=== PATIENT | male | born 1955 | race Caucasian/White ===

== ENCOUNTER 2016-06-10 13:04 | Inpatient (IN) | payer OTHER ==
[~2016-06-10] VITALS: Ht 185.4 cm; Wt 116.0 kg
[~2016-06-10 13:04] MED LIST: ACET1TAB40 PO; AMO500 PO; AMOX1TAB10 PO; IBUP-1542 PO; MECL-77 PO
[2016-06-10] MEDS ORDERED: ONDANSETRON 4 MG INJ IV STA (13:49)
[2016-06-10] MEDS ORDERED: SOD CHLORIDE 0.9% 500 ML IV STA (13:49)
[2016-06-10 14:23] LABS: BASOPHILS % 0.2 % (0.0-2.0); EOSINOPHILS # 0.1 10^3/ul (0.0-0.5); EOSINOPHILS % 0.9 % (0.0-7.0); HEMATOCRIT 48.1 % (42.0-52.0); HEMOGLOBIN 16.1 g/dl (14.0-18.0); LYMPHOCYTES # 1.2 10^3/ul (0.8-2.9); LYMPHOCYTES % 10.2 % (15.0-51.0); MEAN CORPUSCULAR HEMOGLOBIN 29.8 pg (29.0-33.0); MEAN CORPUSCULAR HGB CONC 33.5 g/dl (32.0-37.0); MEAN PLATELET VOLUME 8.6 fl (7.4-10.4); MONOCYTE # 0.9 10^3/ul (0.3-0.9); MONOCYTES % 7.1 % (0.0-11.0); NEUTROPHIL # 9.8 10^3/ul (1.6-7.5); NEUTROPHILS % 81.6 % (39.0-77.0); PLATELET COUNT 296 10^3/UL (140-440); RED BLOOD COUNT 5.41 10^6/ul (4.70-6.10); RED CELL DISTRIBUTION WIDTH 14.1 % (11.5-14.5); UNCORRECTED WBC 12.1 10^3/ul (4.8-10.8); WHITE BLOOD COUNT 12.1 10^3/ul (4.8-10.8)
[2016-06-10 14:24] LABS: CONDITION 1
[2016-06-10 14:31] LABS: ALBUMIN 3.8 g/dl (3.3-4.9)
[2016-06-10 14:32] LABS: POTASSIUM 4.3 mmol/L (3.5-5.1)
[2016-06-10 14:33] LABS: INR 0.95; PARTIAL THROMBOPLASTIN TIME 29.2 Sec (25.0-35.0); PROTIME 12.7 Sec (12.2-14.2)
[2016-06-10 14:34] LABS: ALBUMIN/GLOBULIN RATIO 0.95; BILIRUBIN,INDIRECT 0.7 mg/dl (0-1.1); BILIRUBIN,TOTAL 0.7 mg/dl (0.2-1.3); CREATININE 0.92 mg/dl (0.61-1.24); TOTAL PROTEIN 7.8 g/dl (6.1-8.1)
[2016-06-10 14:35] LABS: CALCIUM 8.5 mg/dl (8.4-10.2)
--- NOTE | 2016-06-10 14:47 | RADRPT ---
PROCEDURE: CT Abdomen and Pelvis without contrast. CLINICAL INDICATION: Abdominal and pelvic pain. Abdominal distension. TECHNIQUE: CT scan of the abdomen and pelvis without contrast was performed. Coronal and sagittal reformatted images were obtained from the axial source images. Images were reviewed on a high-resolu [employer] PACS workstation. Total exam DLP is 1423.34 mGy-cm. CTDIvol is 20.99 mGy. One or more of the following dose reduction techniques were used: Automated exposure control, adjustment of the mA and/ or kV according to patient size, use of iterative reconstruction technique. COMPARISON: 04/12/2009. FINDINGS: The lung bases are normal. There is no pleural effusion or pericardial effusion. There is coronary artery calcification. The liver is normal in size and attenuation. There is no focal hepatic lesion. The gallbladder and bile ducts are normal. The spleen is normal in size. There is a benign calcification superiorly in the spleen. Both adrenals are normal with no enlargement or mass. The pancreas is unremarkable with no mass or evidence of pancreatitis. There is no renal mass or hydronephrosis. There is a nonobstructing 0.6 cm calculus in the lower ri ght kidney and a nonobstructing 0.8 cm calculus in the lower left kidney. The abdominal aorta is not dilated. There is calcification in the aorta consistent with atherosclero sis. There is no retroperitoneal lymphadenopathy or mass. There is no pelvic lymphadenopathy or mass. The bladder and distal ureters are normal. The periappendiceal region is unremarkable with no evidence of appendicitis. The appendix is well se en and appears normal. The stomach is markedly distended with gas and fluid. There is no evidence of gastric outlet obstru ction. The proximal 2/3 of the small bowel is dilated and there are multiple air fluid levels consi stent with small bowel obstruction. The distal third of the small bowel is collapsed. No definite obstructing lesion is seen but there is a transition point in the right lower quadrant. There is a m idline anterior abdominal wall hernia superior to the umbilicus containing only omental fat. There is no herniated bowel. There is no free air. There is a small amount of free fluid in the cul-de-sac. There are degenerative changes of the spine. There is no fracture or lytic lesion. IMPRESSION: 1. Coronary artery calcification. 2. Benign calcification superiorly in the spleen. 3. Nonobstructing small bilateral renal calculi. 4. Atherosclerosis. 5. Normal appendix. 6. Small bowel obstruction with a transition point in the right lower quadrant. No definite obstru cting lesion is visualized. Marked distension of the stomach. Nasogastric tube placement is advise d. 7. Midline anterior abdominal wall hernia superior to the umbilicus containing only omental fat. N o herniated bowel. 8. Small amount of free fluid in the cul-de-sac. 9. Degenerative changes of the spine. Call report: A call report of the findings was made to Dr. Galarza on 06/10/2016 at 1440 hours. RPTAT: QQ .Steve Lr MD, MD Date Time Electronically viewed and signed by .Steve Lr MD, on 06/10/2016 14:46 .R/
--- NOTE | 2016-06-10 15:28 | ERA ---
ER Documentation Chief Complaint Date/Time DATE: 06/10/16 TIME: 15:25 Chief Complaint vomiting since yesterday. right side abdominal pain from hernia. no diarrhe HPI 61-year-old male, very pleasant. Prior history of ventral hernia surgery in 2010 status post mesh placement. He presents complaining of nonbloody nonbilious emesis, diffuse abdominal pain and bloating, lack of bowel movement. He is still passing gas. He denies any fevers or chills, no chest pain or shortness of breath ROS All systems reviewed and are negative except as per history of present illness. Medications Home Meds Discontinued Scripts Acetaminophen with Codeine (Acetaminophen-Cod #3 Tablet) 1 Each Tablet, 1 TAB PO Q6H Y for PAIN, #20 TAB Prov:KENZIE SCRUGGS MD 03/04/16 Amoxicillin/Potassium Clav (Amox-Clav 875-125 mg Tablet) 875-125 mg Tab, 1 TAB PO BID for 7 Days, #14 TAB Prov:KENZIE SCRUGGS MD 03/04/16 Ibuprofen* (Motrin*) 600 Mg Tab, 600 MG PO Q6, #20 TAB Prov:DEVEN CABRERA MD 03/01/16 Amoxicillin* (Amoxicillin*) 500 Mg Cap, 500 MG PO TID for 10 Days, CAP Prov:DEVEN CABRERA MD 03/01/16 Meclizine Hcl* (Meclizine Hcl*) 25 Mg Tablet, 25 MG PO Q8H Y for VERTIGO, #30 TAB Prov:NAVYA CHANDLER DO 01/05/15 Allergies Allergies: Coded Allergies: No Known Allergy (Verified , 06/10/16) PMhx/Soc History of Surgery: Yes (SKIN CANCER REMOVAL, HERNIA REPAIR ) Anesthesia Reaction: No Hx Neurological Disorder: No Hx Respiratory Disorders: No Hx Cardiac Disorders: No Hx Psychiatric Problems: No Hx Miscellaneous Medical Probl: Yes (POST SURGICAL SKIN CA REMOVAL) Hx Alcohol Use: No Hx Substance Use: Yes Hx Tobacco Use: No Smoking Status: Never smoker FmHx Family History: No diabetes Physical Exam Vitals Vital Signs Date Time Temp Pulse Resp B/P Pulse Ox O2 Delivery O2 Flow Rate FiO2 06/10/16 13:24 96.8 127 21 127/79 98 Physical Exam General: Well developed, well nourished, no acute distress Head: Normocephalic, atraumatic. Eyes: Pupils equally reactive, EOM intact ENT: Moist mucous membranes Neck: Supple, no lymphadenopathy Respiratory: Lungs clear bilaterally, no distress Cardiovascular: RRR, no murmurs, rubs, or gallops Abdominal: Ventral hernia, protuberant, high-pitched bowel sounds : Deferred MSK: No edema, no unilateral swelling, 5/5 strength Neurologic: Alert and oriented, moving all extremities, normal speech, no focal weakness, no cerebellar signs Skin: No rash Psych: Normal mood Result Diagram: 06/10/16 1415 06/10/16 1415 Results 24 hrs Laboratory Tests Test 06/10/16 14:15 Activated Partial Thromboplast Time 29.2Sec Alanine Aminotransferase (ALT/SGPT) 28IU/L Albumin 3.8g/dl Albumin/Globulin Ratio 0.95 Alkaline Phosphatase 85IU/L Anion Gap 15 Aspartate Amino Transf (AST/SGOT) 22IU/L Basophils # 0.010^3/ul Basophils % 0.2% Blood Urea Nitrogen 11mg/dl Calcium Level 8.5mg/dl Carbon Dioxide Level 29mmol/L Chloride Level 101mmol/L Creatinine 0.92mg/dl Direct Bilirubin 0.00mg/dl Eosinophils # 0.110^3/ul Eosinophils % 0.9% Globulin 4.00g/dl Glucose Level 114mg/dl Hematocrit 48.1% Hemoglobin 16.1g/dl INR International Normalized Ratio 0.95 Indirect Bilirubin 0.7mg/dl Lipase 18U/L Lymphocytes # 1.210^3/ul Lymphocytes % 10.2% Mean Corpuscular Hemoglobin 29.8pg Mean Corpuscular Hemoglobin Concent 33.5g/dl Mean Corpuscular Volume 89.0fl Mean Platelet Volume 8.6fl Monocytes # 0.910^3/ul Monocytes % 7.1% Neutrophils # 9.810^3/ul Neutrophils % 81.6% Nucleated Red Blood Cells # 0.010^3/ul Nucleated Red Blood Cells % 0.0/100WBC Platelet Count 40350^3/UL Potassium Level 4.3mmol/L Prothrombin Time 12.7Sec Prothrombin Time Ratio 1.0 Red Blood Count 5.4110^6/ul Red Cell Distribution Width 14.1% Sodium Level 141mmol/L Total Bilirubin 0.7mg/dl Total Protein 7.8g/dl White Blood Count 12.110^3/ul Current Medications Medications (Trade) Dose Ordered Sig/Ramesh Route PRN Reason Start Time Stop Time Status Last Admin Dose Admin Sodium Chloride (NS) 500 ml @ 500 mls/hr Q1H STAT IV 06/10/16 13:49 06/10/16 14:48 DC 06/10/16 14:58 Ondansetron HCl (Zofran Inj) 4 mg ONCE STAT IV 06/10/16 13:49 06/10/16 13:50 DC 06/10/16 14:58 Lorazepam (Ativan) 1 mg ONCE ONCE IV 06/10/16 15:30 06/10/16 15:31 Lidocaine (Xylocaine (Viscous)) 15 ml ONCE ONCE PO 06/10/16 15:30 06/10/16 15:31 Ondansetron HCl (Zofran Inj) 4 mg BRIDGE ORDER PRN IV NAUSEA AND/OR VOMITING 06/10/16 15:30 06/11/16 15:29 Acetaminophen (Tylenol Tab) 650 mg ER BRIDGE PRN PO MILD PAIN/FEVER 06/10/16 15:30 06/11/16 15:29 Procedures/MDM EKG, MONITORS, & DIAGNOSTIC IMAGING: CT abdomen and pelvis IMPRESSION: 1. Coronary artery calcification. 2. Benign calcification superiorly in the spleen. 3. Nonobstructing small bilateral renal calculi. 4. Atherosclerosis. 5. Normal appendix. 6. Small bowel obstruction with a transition point in the right lower quadrant. No definite obstructing lesion is visualized. Marked distension of the stomach. Nasogastric tube placement is advised. 7. Midline anterior abdominal wall hernia superior to the umbilicus containing only omental fat. No herniated bowel. 8. Small amount of free fluid in the cul-de-sac. 9. Degenerative changes of the spine. Call report: A call report of the findings was made to Dr. Galarza on 06/10/2016 at 1440 hours. RPTAT: QQ LAB INTERPRETATION: No significant leukocytosis. MEDICAL DECISION MAKING: The patient presents with classic signs and symptoms consistent with likely bowel obstruction. The patient will benefit from laboratory testing, fluids and CT imaging of the abdomen and pelvis. ER COURSE: CT confirms bowel obstruction with transition point. An NG tube will be placed. The patient is hemodynamically stable, no indication for antibiotics. General surgery consultation would be appropriate. The patient is stable for medical surgical floor. I kept the patient and/or family informed of laboratory and diagnostic imaging results throughout the emergency room course. DISPOSITION PLAN: Medical surgical admission for bowel obstruction CONSULTATION: Accepting care team and consultations: I discussed the current laboratory data, diagnostic imaging and emergency care provided. Admitting team: Dr. Mai Admitting team indication: Insurance directed Consulting services: General surgeon Dr. Ying was notified Departure Diagnosis: Primary Impression: Small bowel obstruction Additional Impression: Leukocytosis Qualified Code: D72.829 - Leukocytosis, unspecified type Condition: Stable GINGER GALARZA MD Jun 10, 2016 15:28
[2016-06-10] MEDS ORDERED: LIDOCAINE 2% VISC 15 ML CUP PO ONE (15:30)
[2016-06-10] MEDS ORDERED: LORAZEPAM 2 MG INJ IV ONE (15:30)
[2016-06-10] MEDS ORDERED: ACETAMINOPHEN 325 MG TAB PO PRN (15:30)
[2016-06-10] MEDS ORDERED: ONDANSETRON 4 MG INJ IV PRN ×2 (15:30→17:00)
[2016-06-10] MEDS ORDERED: NACL 0.9% 3 ML SYG IV SCH (17:00)
[2016-06-10] MEDS ORDERED: ACETAMINOPHEN 650 MG SUPP PR PRN (17:00)
[2016-06-10] MEDS ORDERED: morphine 2 MG INJ IV PRN (17:00)
[2016-06-10] MEDS ORDERED: BISACODYL 10 MG SUPP PR PRN (17:00)
[2016-06-10 17:16] VITALS: TEMP 98.6
[2016-06-10 17:54] VITALS: Ht 185.4 cm; Wt 116.0 kg
[2016-06-10 18:25] VITALS: BP 136/83; PULSE 87; RESP 18
[2016-06-10] MEDS: D5W-0.45 NACL + KCL 20 MEQ 1,000 ML IV SCH (18:36)
--- NOTE | 2016-06-10 18:51 | HP ---
DATE OF ADMISSION: 06/10/2016 TYPE OF CONSULTATION: Surgical. REASON FOR CONSULTATION: Small-bowel obstruction. HISTORY OF PRESENT ILLNESS: The patient is a 61-year-old gentleman who presents with a 1 day histor y of abdominal pain, nausea and vomiting. His last bowel movement was yesterday. He continues to b e able to pass gas. In the emergency room, evaluation consisted of a CT scan which showed a small-b owel obstruction with a transition point noted in the right lower quadrant. No definitive obstructi ng lesion was visualized. He was also noted to have atherosclerosis, normal appendix, and splenic c alcification. An NG tube was placed and the patient is admitted with surgical consultation requeste d. He has had no fevers or chills. The patient has had a repair of a large ventral incisional hernia in [facility] in 2009. H e states he has done reasonably well until this hospitalization. OUTPATIENT MEDICATIONS: Essentially none. ALLERGIES: NONE. PAST MEDICAL HISTORY: HEAD, EARS, EYES, NOSE, THROAT: Unremarkable. PULMONARY: No history of shortness of breath or pneumonia or asthma. CARDIAC: No history of chest pain, OK or arrhythmia. ABDOMEN: As in the HPI. MISCELLANEOUS: The patient had a basal cell carcinoma removed of the skin. PHYSICAL EXAMINATION: GENERAL: The patient is a morbidly obese 61-year-old gentleman who is awake and alert, in no acute distress. HEAD, EARS, EYES, NOSE, THROAT: Unremarkable. There is a nasogastric tube in place draining enteri c content. LUNGS: Clear. HEART: Regular rhythm. ABDOMEN: Distended with a recurrent ventral incisional hernia. It is soft and reducible. There ar e no abdominal masses. EXTREMITIES: Unremarkable. LABORATORY DATA: The patient's hematocrit is 48.1 with a white count of 12,100 and a left shift wit h 81.[address] findings as noted above. IMPRESSION: Possible small-bowel obstruction. PLAN: The patient will be continued with IV fluids and NG decompression. Tomorrow morning a small- bowel follow through has been ordered. Plan and further recommendations will be based on the patien t's further workup and clinical course. I will follow with you. Dictated By: ROSALINE CHO/NORM Conf#: [id number] DID#: [id number]
[2016-06-10 21:09] VITALS: BP 148/82; RESP 18
--- NOTE | 2016-06-11 00:57 | RADRPT ---
PROCEDURE: XR Chest. CLINICAL INDICATION: Nasogastric tube placement. TECHNIQUE: Portable AP view of the chest was obtained. COMPARISON: 01/05/2015 FINDINGS: The cardiomediastinal silhouette is within upper normal limits. The lungs are clear. There is no e vidence for pleural effusion, pneumothorax or pulmonary vascular congestion. The distal tip of the n asogastric tube is below the diaphragm and inferior margin of the exposure within the region of the mid to distal stomach The osseous structures are intact with no evidence for acute abnormality. Calc ification of the aortic arch is again seen. RPTAT:HJJR IMPRESSION: 1. Distal tip of the nasogastric tube is within the mid to distal stomach. 2. No evidence of acute intrathoracic pathology. 3. Aortic atherosclerosis is present. Physician Sharon Date Time Electronically viewed and signed by Physician Sharon on 06/11/2016 00:57 /
[2016-06-11] MEDS: D5W-0.45 NACL + KCL 20 MEQ 1,000 ML IV SCH ×3 (04:48→21:07)
[2016-06-11 05:37] LABS: ALBUMIN 3.1 g/dl (3.3-4.9)
[2016-06-11 05:38] LABS: POTASSIUM 4.5 mmol/L (3.5-5.1)
[2016-06-11 05:40] LABS: CREATININE 0.85 mg/dl (0.61-1.24)
[2016-06-11 05:41] LABS: CALCIUM 8.5 mg/dl (8.4-10.2); PHOSPHORUS 2.3 mg/dl (2.5-4.9); TOTAL PROTEIN 6.2 g/dl (6.1-8.1)
[2016-06-11 05:42] LABS: MAGNESIUM 1.5 mg/dl (1.7-2.5)
[2016-06-11 05:57] LABS: T3 UPTAKE 38.2 % (23.5-40.5)
[2016-06-11 06:11] LABS: THYROID STIMULATING HORMONE 1.03 MIU/L (0.465-4.680)
[2016-06-11 07:10] VITALS: BP 126/64; RESP 18
--- NOTE | 2016-06-11 07:15 | PN ---
DATE: 06/11/2016 The patient is symptomatically improved. His abdominal pain seems to have resolved. He has passed some gas and has had a small bowel movement. His abdominal examination is benign, and he has a soft reducible ventral incisional hernia. PLAN: The patient is scheduled for a small-bowel follow-through today. Further recommendations dedra l be forthcoming following the results of this study. Dictated By: ROSALINE CHO/NORM Conf#: [id number] DID#: [id number]
--- NOTE | 2016-06-11 13:16 | HP ---
Date/Time of Note Date/Time of Note DATE: 06/10/16 TIME: 17:02 Assessment/Plan VTE Prophylaxis VTE Prophylaxis Intervention: SCD's Assessment/Plan Chief Complaint/Hosp Course Assessment and plan 1. Small bowel obstruction per general surgeon obtained. Will place patient on IV hydration. Keep npo for now. Analgesics as needed. Await surgeon input. 2. Leukocytosis likely secondary to #1. Afebrile at present. Monitor now. 3. DVT prophylaxis: SCDs 4. Obesity. Weight reduction to be advised Discussed plan of care with Dr. Macedo Admission process time: 35 minutes Problems: HPI/ROS Admit Date/Time Admit Date/Time Hx of Present Illness This is a 61-year-old male with only reported history of ventral hernia repair in 2009 status post mesh who came to [facility] due to reports of abdominal pain. According to the patient is abdominal pain started 1 day prior to admission during lunch when he had reportedly eaten a cheeseburger. Are to have sharp abdominal pain that was diffuse and had associated nausea and vomiting nonbilious nonbloody. He denies any chest pain or shortness of breath associated with it. No other specific symptoms he reported. He did not also having difficulty with tolerating oral intake. He subsequently went to [facility] for further evaluation. Upon examination he did have further abdominal imaging done that did show him to have small obstruction with transition point in right lower quadrant with no definite obstructing lesion visualized. There is also seen marked distention of the stomach. There is also seen nonobstructing small bilateral renal calculi as well as atherosclerosis and coronary artery calcification. On labs he did have leukocytosis with white count of 12.1 likely reactive to his SBO. Basic metabolic panel was otherwise unremarkable. Currently the patient remains resting. He does report a little alleviation of abdominal pain status post NG tube placement. We will evaluate him for the aforementioned issues. ROS 12 point review of systems obtained and entirely negative except as mentioned in history of present illness PMH/Family/Social Past Medical History Medical/surgical history 1. Ventral hernia repair status post mesh in 1999 Family History Significant Family History: no pertinent family hx Social History Alcohol Use: none Smoking Status: Never smoker Drug Use: none Exam/Review of Systems Vital Signs Vitals Vital Signs Date Time Temp Pulse Resp B/P Pulse Ox O2 Delivery O2 Flow Rate FiO2 06/10/16 13:24 96.8 127 21 127/79 98 Exam Exam General: Slightly lethargic. No apparent distress Eyes: [pupils equal round, Anicteric sclera] Neck: Supple nontender, no JVD Cardiac: [S1, S2 auscultated, regular rhythm and rate] Pulmonary: Minimally diminished at lung bases GI: Protuberant minimally tender upon palpation bowel sounds active. NG tube in place Extremities: Edema seen bilateral lower extremities +2-+3 Skin: Scaly and ulceration on bilateral lower extremities with some erythema noted Neurologic: [Alert to person place and time and situation] Labs Result Diagram: 06/10/16 1415 06/10/16 1415 Medications Medications Current Medications Potassium Chloride/Dextrose/ Sod Cl (D5-1/2ns + KCl 20 Meq) 1,000 ml @ 100 mls/ hr Q10H IV ; Start 06/10/16 at 16:33 Ondansetron HCl (Zofran Inj) 4 mg Q6H PRN IV NAUSEA AND/OR VOMITING; Start at 17:00 Acetaminophen (Tylenol Supp) 650 mg Q6H PRN [place] PAIN LEVEL 1-3 OR FEVER; Start 06/10/16 at 17:00 Morphine Sulfate (morphine) 2 mg Q4H PRN IV SEVERE PAIN LEVEL 7-10; Start 06/10 at 17:00 Bisacodyl (Dulcolax Supp) 10 mg DAILY PRN [place] CONSTIPATION; Start 06/10/16 at 17 :00 JHONATAN BENDER Jun 10, 2016 17:12
--- NOTE | 2016-06-11 13:19 | PN ---
Date/Time of Note Date/Time of Note DATE: 06/11/16 TIME: 13:17 Assessment/Plan VTE Prophylaxis VTE Prophylaxis Intervention: SCD's Lines/Catheters IV [facility] Peripheral IV Urinary Cath still in place: No Assessment/Plan Chief Complaint/Hosp Course Assessment and plan 1. Small bowel obstruction per general surgeon obtained. Continue IV hydration. Plan for small bowel follow-through. Follow-up with surgeon recommendations per 2. Leukocytosis likely secondary to #1. Afebrile at present. Monitor now. 3. DVT prophylaxis: SCDs 4. Obesity. Weight reduction to be advised Disposition and plan: Plan for small bowel follow-through.. Advance diet per surgeon recommendation. Discharged in medically stable and cleared by [employer] consultant Discussed plan of care with Dr. Macedo Problems: Subjective 24 Hr Interval Summary Free Text/Dictation Less reported abdominal pain at this time Exam/Review of Systems Vital Signs Vitals Vital Signs Date Time Temp Pulse Resp B/P Pulse Ox O2 Delivery O2 Flow Rate FiO2 06/11/16 07:10 98.6 18 126/64 98 06/10/16 21:09 80 06/10/16 18:25 Room Air Intake and Output 06/10/16 06/10/16 06/11/16 14:59 22:59 06:59 Intake Total 1000 ml Output Total 1100 ml Balance -100 ml Exam General: [No acute signs or symptoms of distress] Eyes: [pupils equal round, Anicteric sclera] Neck: Supple nontender, no JVD Cardiac: [S1, S2 auscultated, regular rhythm and rate] Pulmonary: [No coarse rhonchi or breathing auscultated] GI: Nasogastric tube in place. Less tender at this time. Bowel sounds active Extremities: Edema noted bilateral lower extremities +2-+3. Skin: Noted with scaly skin bilateral lower extremities Neurologic: [Alert to person place and time and situation] Results Result Diagram: 06/10/16 1415 06/11/16 0440 Results 24 hrs Laboratory Tests Test 06/10/16 14:15 06/11/16 04:40 Activated Partial Thromboplast Time 29.2 Alanine Aminotransferase (ALT/SGPT) 28 23 Albumin 3.8 3.1 L Albumin/Globulin Ratio 0.95 1.00 Alkaline Phosphatase 85 70 Anion Gap 15 15 Aspartate Amino Transf (AST/SGOT) 22 18 Basophils # 0.0 Basophils % 0.2 Blood Urea Nitrogen 11 11 Calcium Level 8.5 8.5 Carbon Dioxide Level 29 25 Chloride Level 101 104 Creatinine 0.92 0.85 Direct Bilirubin 0.00 0.00 Eosinophils # 0.1 Eosinophils % 0.9 Globulin 4.00 H 3.10 Glucose Level 114 98 Hematocrit 48.1 Hemoglobin 16.1 INR International Normalized Ratio 0.95 Indirect Bilirubin 0.7 1.0 Lipase 18 L Lymphocytes # 1.2 Lymphocytes % 10.2 L Mean Corpuscular Hemoglobin 29.8 Mean Corpuscular Hemoglobin Concent 33.5 Mean Corpuscular Volume 89.0 Mean Platelet Volume 8.6 Monocytes # 0.9 Monocytes % 7.1 Neutrophils # 9.8 H Neutrophils % 81.6 H Nucleated Red Blood Cells # 0.0 Nucleated Red Blood Cells % 0.0 Platelet Count 296 # Potassium Level 4.3 4.5 Prothrombin Time 12.7 Prothrombin Time Ratio 1.0 Red Blood Count 5.41 Red Cell Distribution Width 14.1 Sodium Level 141 139 Total Bilirubin 0.7 1.0 Total Protein 7.8 6.2 # White Blood Count 12.1 #H Cholesterol Level 120 Cholesterol/HDL Ratio 4.0 Free Thyroxine Index 2.22 HDL Cholesterol 30 Hemoglobin A1c 5.5 LDL Cholesterol, Calculated 75 Magnesium Level 1.5 L Phosphorus Level 2.3 L Thyroid Stimulating Hormone (TSH) 1.030 Thyroxine (T4) 5.8 Triglycerides Level 75 Triiodothyronine (T3) Uptake 38.2 Medications Medications Current Medications Potassium Chloride/Dextrose/ Sod Cl (D5-1/2ns + KCl 20 Meq) 1,000 ml @ 100 mls/ hr Q10H IV Last administered on 06/11/16t 04:48; Admin Dose 100 MLS/HR; Start 06/10/16 at 16:33 Ondansetron HCl (Zofran Inj) 4 mg Q6H PRN IV NAUSEA AND/OR VOMITING; Start at 17:00 Acetaminophen (Tylenol Supp) 650 mg Q6H PRN [place] PAIN LEVEL 1-3 OR FEVER; Start 06/10/16 at 17:00 Morphine Sulfate (morphine) 2 mg Q4H PRN IV SEVERE PAIN LEVEL 7-10; Start 06/10 at 17:00 Bisacodyl (Dulcolax Supp) 10 mg DAILY PRN [place] CONSTIPATION; Start 06/10/16 at 17 :00 JHONATAN BENDER Jun 11, 2016 13:19
[2016-06-11 14:07] LABS: ALBUMIN 3.3 g/dl (3.3-4.9); POTASSIUM 4.2 mmol/L (3.5-5.1)
[2016-06-11 14:10] LABS: ALBUMIN/GLOBULIN RATIO 0.97; BILIRUBIN,INDIRECT 1.1 mg/dl (0-1.1); BILIRUBIN,TOTAL 1.1 mg/dl (0.2-1.3); CALCIUM 8.4 mg/dl (8.4-10.2); CREATININE 0.93 mg/dl (0.61-1.24); TOTAL PROTEIN 6.7 g/dl (6.1-8.1)
[2016-06-11 14:11] LABS: CHOL/HDL RATIO 4.2 RATIO
--- NOTE | 2016-06-11 15:04 | RADRPT ---
Echocardiogram Report Patient Name: COURTNEY GREENE Gender: Male Date: 1955 Study Date: 11-Jun-2016 [employer]ined [employer] Quality Inspector: Milli Romero [facility] Location: [facility] Ref. Physician: JHONATAN BENDER Quality: Technically Difficult Study Procedures: Transthoracic echocardiogram with complete 2D, M-Mode, and doppler examination. Indications: Dyspnea. 2D/M Mode Doppler Measurement Value Normal Ranges Measurement Value Normal Ranges LVIDd 2D 3.8 3.5 - 5.6 cm MV E Peak Yakov 0.5 m/sec LVIDs 2D 2.4 2.1 - 4.1 cm MV A Peak Yakov 0.7 m/sec LVPWd 2D 1.3 0.6 - 1.1 cm MV E/A 0.7 IVSd 2D 1.3 0.6 - 1.1 cm MV Decel Time 167 msec AoR Diam 2D 3.8 2.0 - 3.7 cm MV Decel [place] 3 EDV 2D 62.6 cm3 MV E/A 0.7 ESV 2D 13.7 cm3 LA Dimen 2D 3.6 2.3 - 4.0 cm Findings Left Ventricle: Normal left ventricular cavity size. Mild concentric left ventricular hypertrophy. Mild left ventricular systolic dysfunction. Ejection fraction is visually estimated at 45 %. Tissue Doppler/Mitral Doppler indices are consistent with impaired relaxation (Stage I diastolic dysfunction). Resting Segmental Wall Motion Analysis: Poor endocardial visualization but there appears to be hypokinesis of the distal septum and apex. Right Ventricle: Normal right ventricular size. Normal right ventricular systolic function. Left Atrium: The left atrium is normal in size. Right Atrium: The right atrium is normal in size. Mitral Valve: Normal appearance and function of the mitral valve with trace physiologic regurgitation. Aortic Valve: Normal appearance of the aortic valve. No significant aortic stenosis or insufficiency. Tricuspid Valve: Normal appearance of the tricuspid valve. Unable to obtain RVSP due to minimal presence of tricuspid regurgitation. Pulmonic Valve: Normal pulmonic valve appearance. Pericardium: Normal pericardium with no significant pericardial effusion. Aorta: Normal aortic root. IVC: Normal size and normal respiratory collapse consistent with normal right atrial pressure. Conclusions 1.Technically difficult study due to poor endocardial visualization. 2.Normal left ventricular cavity size. Mild concentric left ventricular hypertrophy. Mild left ventricular systolic dysfunction. Ejection fraction is visually estimated at 45 %. Stage I diastolic dysfunction. Poor endocardial visualization but there appears to be hypokinesis of the distal septum and apex. 3.No significant valvular stenosis or regurgitation seen. 4.Unable to obtain RVSP due to minimal presence of tricuspid regurgitation. RA pressure is 3 mmHg. Electronically Signed By: José Miguel Restrepo 11-Jun-2016 15:03:16 0800 Patient Name: COURTNEY GREENE Study Date: 11-Jun-2016 [id number]
--- NOTE | 2016-06-11 18:09 | RADRPT ---
PROCEDURE: Small bowel follow-through. CLINICAL INDICATION: Abdomen pain. TECHNIQUE: Water-soluble contrast was administered orally and several spot and overhead radiograph s of the abdomen were obtained. COMPARISON: CT scan of the abdomen and pelvis dated 06/10/2016. FINDINGS: On the preliminary radiograph, a nasogastric tube is present with the tip in the stomach. There is no small bowel displacement or mass. The small bowel folds are normal. There is mildly dilated small bowel throughout the abdomen. Contrast is present in the colon at 4 h ours 40 minutes. IMPRESSION: 1. Dilated small bowel with no evidence of mechanical obstruction. RPTAT: QQ .Steve Lr MD, MD Date Time Electronically viewed and signed by .Steve Lr MD, MD on 06/11/2016 18:09 .R/
[2016-06-11 19:48] VITALS: BP 122/56; RESP 18
[2016-06-11] MEDS ORDERED: MAGNESIUM SULFATE 2 GM/50 ML 50 ML IVPB ONE (20:30)
[2016-06-11] MEDS ORDERED: POTASSIUM PHOSPHATE 20 MEQ in SOD CHLORIDE 0.9% 250 ML IVPB ONE (20:30)
[2016-06-12 06:13] LABS: BASOPHILS % 0.3 % (0.0-2.0); EOSINOPHILS # 0.2 10^3/ul (0.0-0.5); EOSINOPHILS % 2.5 % (0.0-7.0); HEMATOCRIT 42.8 % (42.0-52.0); HEMOGLOBIN 14.4 g/dl (14.0-18.0); LYMPHOCYTES # 1.8 10^3/ul (0.8-2.9); LYMPHOCYTES % 19.9 % (15.0-51.0); MEAN CORPUSCULAR HEMOGLOBIN 29.9 pg (29.0-33.0); MEAN CORPUSCULAR HGB CONC 33.7 g/dl (32.0-37.0); MEAN CORPUSCULAR VOLUME 88.8 fl (82.0-101.0); MEAN PLATELET VOLUME 8.5 fl (7.4-10.4); MONOCYTE # 0.8 10^3/ul (0.3-0.9); MONOCYTES % 9.3 % (0.0-11.0); NEUTROPHIL # 6.2 10^3/ul (1.6-7.5); PLATELET COUNT 236 10^3/UL (140-440); RED BLOOD COUNT 4.82 10^6/ul (4.70-6.10); RED CELL DISTRIBUTION WIDTH 14.6 % (11.5-14.5); UNCORRECTED WBC 9.1 10^3/ul (4.8-10.8); WHITE BLOOD COUNT 9.1 10^3/ul (4.8-10.8)
[2016-06-12 06:26] LABS: CONDITION 1; LH ANALYZER COMMENTS 1
[2016-06-12 06:33] LABS: MAGNESIUM 2.2 mg/dl (1.7-2.5); PHOSPHORUS 2.5 mg/dl (2.5-4.9)
--- NOTE | 2016-06-12 08:25 | RADRPT ---
PROCEDURE: XR Abdomen. CLINICAL INDICATION: Abdominal pain TECHNIQUE: Two views of the abdomen are available for review. COMPARISON: Small bowel study dated 06/11/2016 FINDINGS: Several residual minimally dilated loops of small bowel in the left hemiabdomen are identified at th is time, improved when compared to the prior study. There is no evidence of significant small bowel obstruction at this time. Residual contrast is seen throughout the colon. All of the contrast seen w ithin the small bowel on the recent prior study has now passed through completely into the colon. Th ere are no abnormal calcifications overlying the urinary tracts. The osseous structures are remarkab le for degenerative spondylosis of the spine. IMPRESSION: 1. Unremarkable abdomen x-ray series. 2. No small bowel dilatation or small bowel obstruction is identified. 3. Residual contrast seen throughout the colon at this time. RPTAT: PP .Magdaleno Sevilla MD, MD Date Time Electronically viewed and signed by .Magdaleno Sevilla MD, on 06/12/2016 08:24 .B/
[2016-06-12] MEDS: D5W-0.45 NACL + KCL 20 MEQ 1,000 ML IV SCH ×2 (08:33→13:42)
[2016-06-12 08:41] VITALS: BP 130/68; RESP 18
[2016-06-12] MEDS ORDERED: DOCU-144 PO (12:03)
[2016-06-12] MEDS ORDERED: ONDA-43 PO (12:03)
--- NOTE | 2016-06-12 12:43 | PN ---
DATE: 06/12/2016 OBJECTIVE: The patient's small bowel follow through yesterday showed no obstruction. The NG tube h as been removed and the patient is tolerating liquids and has had several loose bowel movements. He feels markedly symptomatically improved. PHYSICAL EXAMINATION: ABDOMEN: Benign. PLAN: Full liquids. The patient's diet can be advanced and he can be discharged if tolerates with outpatient followup with his surgeon. Dictated By: ROSALINE CHO/NORM Conf#: [id number] DID#: [id number]
--- NOTE | 2016-06-12 14:50 | PN ---
Date/Time of Note Date/Time of Note DATE: 06/12/16 TIME: 14:48 Assessment/Plan VTE Prophylaxis VTE Prophylaxis Intervention: SCD's Lines/Catheters IV [facility]ter [facility]from [facility]): Peripheral IV Urinary Cath still in place: No Assessment/Plan Chief Complaint/Hosp Course Assessment and plan 1. Small bowel obstruction per general surgeon obtained. Continue IV hydration. Status post small bowel follow-through with no obstruction seen. Diet advanced to liquid. Continue with surgeon recommendations. 2. Leukocytosis likely secondary to #1. Afebrile at present. Improved at present 3. DVT prophylaxis: SCDs 4. Obesity. Weight reduction to be advised 5.CHF with systolic and diastolic dysfunction. Patient started on beta maria e. Continue with blood pressure control. Patient follow-up with his outpatient physician Disposition and plan: Started on diuretic. Also on beta maria e. Advance diet as tolerated. Discharge when able to tolerate regular diet Discussed plan of care with Dr. Macedo Problems: Subjective 24 Hr Interval Summary Free Text/Dictation Less abdominal pain. NG tube removed. Exam/Review of Systems Vital Signs Vitals Vital Signs Date Time Temp Pulse Resp B/P Pulse Ox O2 Delivery O2 Flow Rate FiO2 06/12/16 08:41 98.3 71 18 130/68 93 06/10/16 18:25 Room Air Intake and Output 06/11/16 06/11/16 06/12/16 14:59 22:59 06:59 Intake Total 1000 ml 784 ml Output Total 1050 ml 50 ml Balance -50 ml 734 ml Exam General: No acute signs or symptoms of distress Eyes: pupils equal round, Anicteric sclera Neck: Supple nontender, no JVD Cardiac: S1, S2 auscultated, regular rhythm and rate Pulmonary: No coarse rhonchi or breathing auscultated GI: Nasogastric tube in place. Less tender at this time. Bowel sounds active Extremities: Edema noted bilateral lower extremities +2-+3. Skin: Noted with scaly skin bilateral lower extremities Neurologic: Alert to person place and time and situation Results Result Diagram: 06/12/16 0534 06/11/16 1345 Results 24 hrs Laboratory Tests Test 06/12/16 05:34 Basophils # 0.0 Basophils % 0.3 Blood Morphology Comment Eosinophils # 0.2 Eosinophils % 2.5 Hematocrit 42.8 Hemoglobin 14.4 Lymphocytes # 1.8 Lymphocytes % 19.9 Magnesium Level 2.2 Mean Corpuscular Hemoglobin 29.9 Mean Corpuscular Hemoglobin Concent 33.7 Mean Corpuscular Volume 88.8 Mean Platelet Volume 8.5 Monocytes # 0.8 Monocytes % 9.3 Neutrophils # 6.2 Neutrophils % 68.0 Nucleated Red Blood Cells # 0.0 Nucleated Red Blood Cells % 0.0 Phosphorus Level 2.5 Platelet Count 236 # Red Blood Count 4.82 Red Cell Distribution Width 14.6 H White Blood Count 9.1 # Medications Medications Current Medications Potassium Chloride/Dextrose/ Sod Cl (D5-1/2ns + KCl 20 Meq) 1,000 ml @ 100 mls/ hr Q10H IV Last administered on 06/12/16t 13:42; Admin Dose 100 MLS/HR; Start 06/10/16 at 16:33 Ondansetron HCl (Zofran Inj) 4 mg Q6H PRN IV NAUSEA AND/OR VOMITING; Start at 17:00 Acetaminophen (Tylenol Supp) 650 mg Q6H PRN NH PAIN LEVEL 1-3 OR FEVER; Start 06/10/16 at 17:00 Morphine Sulfate (morphine) 2 mg Q4H PRN IV SEVERE PAIN LEVEL 7-10; Start 06/10 at 17:00 Bisacodyl (Dulcolax Supp) 10 mg DAILY PRN NH CONSTIPATION; Start 06/10/16 at 17 :00 JHONATAN BENDER Jun 12, 2016 14:50
[2016-06-12 15:19] VITALS: BP 138/72; PULSE 72
[2016-06-12] MEDS: FUROSEMIDE 20 MG TAB PO SCH (15:22)
[2016-06-12] MEDS: METOPROLOL 25 MG TAB PO SCH ×2 (15:23→21:49)
[2016-06-12 21:11] VITALS: BP 137/73; RESP 19
[2016-06-13] MEDS: D5W-0.45 NACL + KCL 20 MEQ 1,000 ML IV SCH ×2 (04:33→14:33)
[2016-06-13 08:23] LABS: BASOPHILS % 0.3 % (0.0-2.0); EOSINOPHILS # 0.2 10^3/ul (0.0-0.5); HEMATOCRIT 44.6 % (42.0-52.0); LYMPHOCYTES # 1.6 10^3/ul (0.8-2.9); LYMPHOCYTES % 20.3 % (15.0-51.0); MEAN CORPUSCULAR HEMOGLOBIN 29.8 pg (29.0-33.0); MEAN CORPUSCULAR HGB CONC 33.6 g/dl (32.0-37.0); MEAN CORPUSCULAR VOLUME 88.6 fl (82.0-101.0); MEAN PLATELET VOLUME 8.4 fl (7.4-10.4); MONOCYTE # 0.9 10^3/ul (0.3-0.9); MONOCYTES % 11.3 % (0.0-11.0); NEUTROPHILS % 65.1 % (39.0-77.0); PLATELET COUNT 264 10^3/UL (140-440); RED BLOOD COUNT 5.03 10^6/ul (4.70-6.10); RED CELL DISTRIBUTION WIDTH 13.6 % (11.5-14.5); UNCORRECTED WBC 7.7 10^3/ul (4.8-10.8); WHITE BLOOD COUNT 7.7 10^3/ul (4.8-10.8)
[2016-06-13 08:26] LABS: CONDITION 1
[2016-06-13] MEDS: METOPROLOL 25 MG TAB PO SCH ×2 (10:16→21:15)
[2016-06-13] MEDS: FUROSEMIDE 20 MG TAB PO SCH (10:17)
--- NOTE | 2016-06-13 11:28 | PN ---
DATE: 06/13/2016 SUBJECTIVE: The patient is tolerating full liquids. He has resumed bowel function. OBJECTIVE: His abdominal examination is benign. The ventral incisional hernia remains soft and red ucible. PLAN: The patient can start a regular diet. If tolerates, he is cleared for discharge home today. Dictated By: ROSALINE CHO/NORM Conf#: [id number] DID#: [id number]
[2016-06-13] MEDS ORDERED: LAS20 PO (17:09)
[2016-06-13] MEDS ORDERED: METO-448 PO (17:09)
--- NOTE | 2016-06-13 17:21 | PDOCDIS ---
Discharge Instructions DIAGNOSIS Discharge Diagnosis: 1. small bowel obstruction 2. chf diastolic dysfunction CONDITION Patient Condition: Stable HOME CARE INSTRUCTIONS: Special Diet: clear liquids FOLLOW UP/APPOINTMENTS Appointments 1. Follow up with your primary care provider in one week JHONATAN BENDER Jun 13, 2016 17:21
[2016-06-13] MEDS ORDERED: LISI-523 PO (17:23)
[2016-06-13 21:17] VITALS: BP 136/72; RESP 20
[2016-06-14] MEDS: D5W-0.45 NACL + KCL 20 MEQ 1,000 ML IV SCH (00:33)
[2016-06-14 07:37] VITALS: BP 134/68; RESP 21
[2016-06-14 07:37] LABS: BASOPHIL # 0.1 10^3/ul (0.0-0.1); BASOPHILS % 0.6 % (0.0-2.0); EOSINOPHILS # 0.4 10^3/ul (0.0-0.5); EOSINOPHILS % 5.1 % (0.0-7.0); HEMATOCRIT 45.9 % (42.0-52.0); HEMOGLOBIN 15.5 g/dl (14.0-18.0); LYMPHOCYTES # 1.9 10^3/ul (0.8-2.9); LYMPHOCYTES % 22.8 % (15.0-51.0); MEAN CORPUSCULAR HEMOGLOBIN 30.2 pg (29.0-33.0); MEAN CORPUSCULAR HGB CONC 33.8 g/dl (32.0-37.0); MEAN CORPUSCULAR VOLUME 89.4 fl (82.0-101.0); MEAN PLATELET VOLUME 8.4 fl (7.4-10.4); MONOCYTES % 12.1 % (0.0-11.0); NEUTROPHILS % 59.4 % (39.0-77.0); PLATELET COUNT 248 10^3/UL (140-440); RED BLOOD COUNT 5.13 10^6/ul (4.70-6.10); UNCORRECTED WBC 8.4 10^3/ul (4.8-10.8); WHITE BLOOD COUNT 8.4 10^3/ul (4.8-10.8)
[2016-06-14 07:41] LABS: CONDITION 1
[2016-06-14] MEDS: FUROSEMIDE 20 MG TAB PO SCH (10:00)
[2016-06-14] MEDS: METOPROLOL 25 MG TAB PO SCH (10:00)
--- NOTE | 2016-06-14 13:18 | PN ---
DATE: 06/14/2016 The patient's discharge was held up until this morning because of logistical reasons. His symptoms have completely resolved. PLAN: The patient will follow up with Dr. Frank regarding future repair of his ventral incisional hernia. The patient is discharged and will be followed as an outpatient. Dictated By: ROSALINE CHO/NORM Conf#: [id number] DID#: [id number]
--- NOTE | 2016-06-14 18:50 | PN ---
Date/Time of Note Date/Time of Note LATE ENTRY DATE: 06/13/16 Assessment/Plan VTE Prophylaxis VTE Prophylaxis Intervention: SCD's Lines/Catheters IV [facility] (from [facility] Saline Lock Urinary Cath still in place: No Assessment/Plan Chief Complaint/Hosp Course Assessment and plan 1. Small bowel obstruction. General surgeon following Continue IV hydration. Status post small bowel follow-through with no obstruction seen. Advance diet as tolerated . Continue with surgeon recommendations. 2. Leukocytosis likely secondary to #1. Afebrile at present. Improved at present 3. DVT prophylaxis: SCDs 4. Obesity. Weight reduction to be advised 5.CHF with systolic and diastolic dysfunction. Patient started on beta maria e. Continue with blood pressure control. Patient follow-up with his outpatient physician Disposition and plan: Started on diuretic. Also on beta maria e. d/c planning. d /c when patient can tolerate regular diet Discussed plan of care with Dr. Macedo Problems: Subjective 24 Hr Interval Summary Free Text/Dictation no s/s/ of distress Exam/Review of Systems Vital Signs Vitals Vital Signs Date Time Temp Pulse Resp B/P Pulse Ox O2 Delivery O2 Flow Rate FiO2 06/14/16 07:37 98.7 65 21 134/68 92 06/10/16 18:25 Room Air Intake and Output 06/13/16 06/13/16 06/14/16 15:00 23:00 07:00 Intake Total 1600 ml 480 ml Balance 1600 ml 480 ml Exam General: No acute signs or symptoms of distress Eyes: pupils equal round, Anicteric sclera Neck: Supple nontender, no JVD Cardiac: S1, S2 auscultated, regular rhythm and rate Pulmonary: No coarse rhonchi or breathing auscultated GI: Nasogastric tube in place. Less tender at this time. Bowel sounds active Extremities: Edema noted bilateral lower extremities +2-+3. Skin: Noted with scaly skin bilateral lower extremities Neurologic: Alert to person place and time and situation Results Result Diagram: 06/14/16 0657 06/11/16 1345 Results 24 hrs Laboratory Tests Test 06/14/16 06:57 Basophils # 0.1 Basophils % 0.6 Eosinophils # 0.4 Eosinophils % 5.1 Hematocrit 45.9 Hemoglobin 15.5 Lymphocytes # 1.9 Lymphocytes % 22.8 Mean Corpuscular Hemoglobin 30.2 Mean Corpuscular Hemoglobin Concent 33.8 Mean Corpuscular Volume 89.4 Mean Platelet Volume 8.4 Monocytes # 1.0 H Monocytes % 12.1 H Neutrophils # 5.0 Neutrophils % 59.4 Nucleated Red Blood Cells # 0.0 Nucleated Red Blood Cells % 0.0 Platelet Count 248 Red Blood Count 5.13 Red Cell Distribution Width 14.0 White Blood Count 8.4 JHONATAN BENDER Jun 14, 2016 18:50
== END 2016-06-14 10:30 | disposition home or self-care (01) | DRG 389 ==
LOC: E/R 13:04 → PP2 15:18 → OBG 06-12 17:17
PROVIDERS: ADMIT Internal Medicine; ATTEND Internal Medicine
DX: K56.60 Unspecified intestinal obstruction (principal); I50.30 Unspecified diastolic (congestive) heart failure; E66.9 Obesity, unspecified; K43.2 Incisional hernia without obstruction or gangrene; D72.829 Elevated white blood cell count, unspecified; Z68.33 Body mass index [BMI] 33.0-33.9, adult
CPT/HCPCS: 36415; 71010; 74000; 74176; 74250; 80053; 80061; 80307; 83036; 83690; 83735; 84100; 84436; 84443; 84479; 85025; 85610; 85730; 93306; 96374; 96375; J2060; J2405; J3475; J3480; J7040; J7050

== ENCOUNTER 2016-06-16 10:43 | Inpatient (IN) | payer OTHER ==
[~2016-06-16] VITALS: Ht 185.4 cm; Wt 109.1 kg
[2016-06-16] VITALS (25 sets, daily range): BP systolic 79–139; BP diastolic 54–82; PULSE 90–122; RESP 16–27; TEMP 98.7–101.6
[~2016-06-16 10:43] MED LIST changes: -ACET1TAB40 PO; +AMIODARONE 150 MG INJ ONE; +AMIODARONE 900 MG INJ ONE; -AMO500 PO; -AMOX1TAB10 PO; +ASPIRIN 81 MG TAB ONE; +DEXTROSE 5% WATER 500 ML BAG ONE; +DOCU-144 PO; +HEPARIN 5,000 UNIT/0.5 ML SYG ONE; -IBUP-1542 PO; +LAS20 PO; +LISI-523 PO; -MECL-77 PO; +METO-448 PO; +ONDA-43 PO
[2016-06-16 11:16] LABS: BASOPHILS % 0.4 % (0.0-2.0); EOSINOPHILS # 0.4 10^3/ul (0.0-0.5); EOSINOPHILS % 3.6 % (0.0-7.0); HEMATOCRIT 45.8 % (42.0-52.0); HEMOGLOBIN 15.5 g/dl (14.0-18.0); LYMPHOCYTES # 2.2 10^3/ul (0.8-2.9); LYMPHOCYTES % 21.7 % (15.0-51.0); MEAN CORPUSCULAR HEMOGLOBIN 29.8 pg (29.0-33.0); MEAN CORPUSCULAR HGB CONC 33.9 g/dl (32.0-37.0); MEAN CORPUSCULAR VOLUME 87.9 fl (82.0-101.0); MEAN PLATELET VOLUME 8.3 fl (7.4-10.4); MONOCYTE # 1.1 10^3/ul (0.3-0.9); MONOCYTES % 10.6 % (0.0-11.0); NEUTROPHIL # 6.3 10^3/ul (1.6-7.5); NEUTROPHILS % 63.7 % (39.0-77.0); PLATELET COUNT 292 10^3/UL (140-440); RED BLOOD COUNT 5.22 10^6/ul (4.70-6.10); RED CELL DISTRIBUTION WIDTH 13.9 % (11.5-14.5); UNCORRECTED WBC 9.9 10^3/ul (4.8-10.8); WHITE BLOOD COUNT 9.9 10^3/ul (4.8-10.8)
[2016-06-16 11:20] LABS: CONDITION 1
--- NOTE | 2016-06-16 11:21 | RADRPT ---
PROCEDURE: XR Chest AP portable CLINICAL INDICATION: Chest pain TECHNIQUE: An AP portable radiograph of the chest was submitted. COMPARISON: 06/11/2016 FINDINGS: Support Hardware: None Cardiovascular: The cardiovascular silhouette appears unremarkable. Lung Jones: The lung jones appear clear with no nodule, alveolar infiltrate, for a interstitial pr ominence evident. Pleural Spaces: No pneumothorax or pleural effusion is identified. Osseous Structures: The osseous structures appear intact. Soft Tissues: The soft tissues appear generous. IMPRESSION: 1. Stable unremarkable portable chest. 2. The NG tube has been removed since the previous study. Physician Nevaeh Date Time Electronically viewed and signed by Physician Nevaeh on 06/16/2016 11:20 RH/
[2016-06-16 11:26] LABS: POTASSIUM 4.4 mmol/L (3.5-5.1)
[2016-06-16 11:28] LABS: CREATININE 1.22 mg/dl (0.61-1.24); INR 0.99; PARTIAL THROMBOPLASTIN TIME 28.3 Sec (25.0-35.0); PROTIME 13.1 Sec (12.2-14.2)
[2016-06-16 11:29] LABS: CALCIUM 8.8 mg/dl (8.4-10.2)
[2016-06-16] MEDS ORDERED: HEPARIN 1000 UNITS/ML 10 ML INJ IV ONE (11:30)
[2016-06-16] MEDS ORDERED: ASPIRIN 81 MG TAB PO ONE (11:30)
[2016-06-16] MEDS ORDERED: LIDOCAINE 1% (MDV) 20 ML INJ ONE (11:32)
[2016-06-16] MEDS ORDERED: MIDAZOLAM 1 MG/ML 2 ML INJ ONE ×3 (11:32→14:51)
[2016-06-16] MEDS ORDERED: FENTAnyl 50 MCG/ML VIAL ONE ×2 (11:32→12:29)
[2016-06-16] MEDS ORDERED: IODIXANOL LOCM 100 ML BTL ONE (11:32)
[2016-06-16] MEDS ORDERED: IODIXANOL LOCM 50 ML BTL ONE (11:32)
[2016-06-16] MEDS ORDERED: HEPARIN 1000 UNITS/ML 10 ML INJ ONE ×9 (11:34→15:46)
[2016-06-16] MEDS ORDERED: VERAPAMIL 5 MG INJ ONE (11:34)
--- NOTE | 2016-06-16 11:34 | ERA ---
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 This patient was a walk-in through triage. Our triage EKG does show STEMI. This patient does state he is got to centralize chest pain and pressure with radiation down both arms. He states he is mild shortness of breath and denies any diaphoresis or nausea associated with this. He states that he was recently discharged from the hospital for a small bowel obstruction ROS All systems reviewed and are negative except as per history of present illness. Medications Home Meds Active Scripts Lisinopril* (Zestril*) 5 Mg Tablet, 5 MG PO DAILY, #30 TAB Prov:JHONATAN BENDER 06/13/16 Metoprolol Tartrate* (Lopressor*) 25 Mg Tab, 12.5 MG PO BID for 30 Days, TAB Prov:JHONATAN BENDER 06/13/16 Furosemide (Lasix) 20 Mg Tab, 20 MG PO DAILY for 30 Days, TAB Prov:JHONATAN BENDER 06/13/16 Docusate Sodium* (Colace*) 100 Mg Capsule, 100 MG PO BID Y for CONSTIPATION, # 30 CAP Prov:JHONATAN BENDER 06/12/16 Ondansetron Hcl* (Zofran*) 4 Mg Tab, 4 MG PO Q4H Y for NAUSEA AND OR VOMITING, # 30 TAB Prov:JHONATAN BENDER 06/12/16 Discontinued Scripts Acetaminophen with Codeine (Acetaminophen-Cod #3 Tablet) 1 Each Tablet, 1 TAB PO Q6H Y for PAIN, #20 TAB Prov:KENZIE SCRUGGS MD 03/04/16 Amoxicillin/Potassium Clav (Amox-Clav 875-125 mg Tablet) 875-125 mg Tab, 1 TAB PO BID for 7 Days, #14 TAB Prov:KENZIE SCRUGGS MD 03/04/16 Ibuprofen* (Motrin*) 600 Mg Tab, 600 MG PO Q6, #20 TAB Prov:DEVEN CABRERA MD 03/01/16 Amoxicillin* (Amoxicillin*) 500 Mg Cap, 500 MG PO TID for 10 Days, CAP Prov:DEVEN CABRERA MD 03/01/16 Meclizine Hcl* (Meclizine Hcl*) 25 Mg Tablet, 25 MG PO Q8H Y for VERTIGO, #30 TAB Prov:GERALDINENAVYA BakerAshlyn HAN 01/05/15 Allergies Allergies: Coded Allergies: No Known Allergy (Verified , 06/16/16) PMhx/Soc History of Surgery: Yes (mesh plaement ) Anesthesia Reaction: No Hx Neurological Disorder: No Hx Respiratory Disorders: No Hx Cardiac Disorders: No Hx Psychiatric Problems: No Hx Miscellaneous Medical Probl: No Hx Alcohol Use: No Hx Substance Use: No Hx Tobacco Use: No Smoking Status: Never smoker Physical Exam Vitals Vital Signs Date Time Temp Pulse Resp B/P Pulse Ox O2 Delivery O2 Flow Rate FiO2 06/16/16 11:06 Nasal Cannula 2 06/16/16 11:03 72 18 155/94 99 06/16/16 10:55 98.4 66 20 167/72 99 Physical Exam INITIAL VITAL SIGNS: Reviewed by me GENERAL: The patient is well developed and appropriate for usual state of health in no apparent distress HEENT: Pupils equal, round, and reactive to light. EOMI. There is no scleral icterus. NECK: C-spine is soft and supple, there is no meningismus. There is no cervical lymphadenopathy. LUNGS: Clear to auscultation bilaterally. There are no rales, wheezes or rhonchi. HEART: Regular rate and rhythm, no murmurs, clicks, rubs or gallops. ABDOMEN: Soft, non-tender, non-distended. There are bowel sounds in all four quadrants. No rebound or guarding. EXTREMITIES: There is no peripheral cyanosis or edema. No focal swelling or erythema. NEUROLOGICAL: The patient moves all four extremities with 5/5 strength. Cranial nerves II - XII are intact. Normal gait. Alert and oriented SKIN: There is no apparent rash or petechiae. HEME/LYMPHATIC: There is no evidence of excessive bruising or lymphedema. PSYCHIATRIC: The patient does not appear anxious or depressed. Result Diagram: 06/16/16 1108 Results 24 hrs Laboratory Tests Test 06/16/16 11:08 Activated Partial Thromboplast Time 28.3Sec Basophils # 0.010^3/ul Basophils % 0.4% Eosinophils # 0.410^3/ul Eosinophils % 3.6% Hematocrit 45.8% Hemoglobin 15.5g/dl INR International Normalized Ratio 0.99 Lymphocytes # 2.210^3/ul Lymphocytes % 21.7% Mean Corpuscular Hemoglobin 29.8pg Mean Corpuscular Hemoglobin Concent 33.9g/dl Mean Corpuscular Volume 87.9fl Mean Platelet Volume 8.3fl Monocytes # 1.110^3/ul Monocytes % 10.6% Neutrophils # 6.310^3/ul Neutrophils % 63.7% Nucleated Red Blood Cells # 0.010^3/ul Nucleated Red Blood Cells % 0.0/100WBC Platelet Count 82942^3/UL Prothrombin Time 13.1Sec Prothrombin Time Ratio 1.0 Red Blood Count 5.2210^6/ul Red Cell Distribution Width 13.9% White Blood Count 9.910^3/ul Current Medications Medications (Trade) Dose Ordered Sig/Ramesh Route PRN Reason Start Time Stop Time Status Last Admin Dose Admin Aspirin (Aspirin) 324 mg ONCE ONCE PO 06/16/16 11:30 06/16/16 11:31 06/16/16 11:11 Heparin Sodium (Porcine) (Heparin (1000 Units/ml)) 4,000 unit ONCE ONCE IV 06/16/16 11:30 06/16/16 11:31 06/16/16 11:11 Procedures/MDM EKG: #1 Rate/Rhythm: Acute ST elevation NH QRS, ST, T-waves: [ST elevation in inferior leads] Impression: Acute inferior ST elevation NH] EKG: #2 Rate/Rhythm: Acute ST elevation NH QRS, ST, T-waves: [ST elevation in inferior leads] Impression: Acute inferior ST elevation NH] Chest X-ray 1V Interpreted by me: Soft Tissue: No acute abnormalities Bones: No acute abnormalities Mediastinum/Cardiac Silhouette/Lungs: [No acute abnormalities] This 61-year-old male presents to the emergency room for evaluation of chest pain and pressure and feeling of indigestion. This patient was a walk-in through triage in his triage EKG did show ST elevation NH. I evaluated this patient at 11 AM. I called a code STEMI at 11:01 AM. I have spoken to Dr. Roberts who agrees to take this patient to the Forging Operator. Forging Operator team is at bedside at 11:03 AM. This patient was taken to laboratory technology teacher after x-rays and EKGs were obtained. This patient will be admitted at this time under the care of her panel physician, Dr. Hadley. He is hemodynamically stable at this time and was given 324 mg of chewable aspirin, and heparin bolus of 4000 units. Critical Care: Excluding all billable procedures Time: 33 minutes Treatments/Evaluations: Close monitoring and treatment of unstable vital signs, cardiorespiratory, and neurologic status, while maintaining tight balance of fluid, respiratory, and cardiac interventions, multiple bedside evaluations, multiple consultations, EKG interpretation, chart review. Departure Diagnosis: Primary Impression: Acute ST elevation myocardial infarction Additional Impression: ST elevation myocardial infarction (STEMI) of inferior wall Condition: Serious MICHAEL MCCOLLUM DO Jun 16, 2016 11:34
[2016-06-16] MEDS ORDERED: NITROGLYCERIN (IC) 100 MCG/ML INJ ONE (11:35)
--- NOTE | 2016-06-16 11:36 | EN ---
Date/Time of Note Date/Time of Note DATE: 06/16/16 TIME: 11:35 ER Progress Note I was called to a MEHUL GOODE in the cardiac Airborne And Air Delivery Specialist. When I entered the room I saw patient that was mildly responsive and was undergoing chest compressions. According to the Airborne And Air Delivery Specialist nurses this patient did go into a pulseless V. tach. He was shocked one time. When I evaluated this patient he was tracking me with his eyes. He began to speak and stated that he was mildly short of breath. I did note PVCs on his rhythm. I did start this patient on 150 mg of amiodarone. At that point our supervisor hardboard , Dr. Aden, into the Airborne And Air Delivery Specialist and they were to proceed with the percutaneous intervention. This patient was hemodynamically stable when I left, no need for intubation. Cardiopulmonary Resuscitation by me: See code documentation for specific details. ACLS and BLS were performed with high quality chest compressions and minimal interruptions. Reversible causes were assessed and treated. MICHAEL MCCOLLUM DO Jun 16, 2016 11:36
[2016-06-16] MEDS ORDERED: LIDOCAINE 100 MG SYRINGE ONE (12:25)
[2016-06-16] MEDS ORDERED: NA BICARBONATE 8.4% 50 ML SYG ONE (12:25)
[2016-06-16] MEDS ORDERED: MIDAZOLAM 5 ML ONE ×3 (12:25→14:53)
[2016-06-16] MEDS ORDERED: POTASSIUM CHLORIDE 40 MEQ INJ ONE (12:26)
[2016-06-16] MEDS ORDERED: PHENYLephrine (100 MCG/ML) 5ML SYG ONE ×2 (12:27→14:21)
[2016-06-16 12:32] LABS: TROPONIN-I 0.05 ng/ml (0.00-0.12)
[2016-06-16] MEDS ORDERED: PAPAVERINE 60 MG INJ ONE (12:40)
[2016-06-16] MEDS ORDERED: VANCOMYCIN 1 GM INJ ONE (12:41)
--- NOTE | 2016-06-16 12:53 | CONS ---
Date/Time of Note Date/Time of Note DATE: 06/16/16 TIME: 12:40 Assessment/Plan Assessment/Plan Chief Complaint/Hosp Course Patient presents two days after discharge for SBO with a STEMI and VF arrest, has 3 vessel coronary disease and known cardiomyopathy, unable to open a vessel acutely, now will undergo emergent CABG. Case discussed with Dr. Back. Problems: Additional Assessment/Plan STEMI ischemic cardiomyopathy ef 45% 3 vessel coronary disease recent SBO treated medically Plan: CABG emergently Medical therapy of coronary disease to follow. Consultation Date/Type/Reason Admit Date/Time 06/16/2016 Date of Consultation: Jun 16, 2016 Type of Consultation: cardiology Reason for Consultation STEMI Referring Provider: MICHAEL MCCOLLUM of Present Illness 61 yo with no prior cardiac history, admitted 06/10- for sbo treated medically , noted to have EF 45% with anterior and apical hypokinesis on echo 06/10/16, discharged on metoprolol and lisinopril that he never filled. Patient says he's felt unwell for 2 weeks, but specifically had chest pain and dyspnea that started an hour and a half before he presented himself to triage. EKG there demonstrated ST elevations of III, AVF and reciprocral depressions in I and AVL. 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 Cath demonstrates severe 99% mid LAD disease with LD 2 flow, LCX 100% occluded proximally, and RCA has a 100% mid occlusion with right to right collaterals with LD I flow, and some faint collaterals directed toward the LCX territory. Attempts were made to cross the RCA and LCX lesions, both unsuccessful, a balloon pump was placed, and patient being referred for CABG emergently. Eyes: no complaints ENT: no complaints Respiratory: shortness of breath Cardiovascular: chest pain Gastrointestinal: no complaints Genitourinary: no complaints Musculoskeletal: no complaints Skin: no complaints Neurologic: no complaints Endocrine: no complaints Psychological: nl mood/affect, no complaints Past Medical History recent SBO treated medically, and known cardiomyopathy based on echo on last admission one week ago. Family History Significant Family History: no pertinent family hx Social History Smoking Status: Never smoker Exam/Review of Systems Vital Signs Vitals Vital Signs Date Time Temp Pulse Resp B/P Pulse Ox O2 Delivery O2 Flow Rate FiO2 06/16/16 11:06 Nasal Cannula 2 06/16/16 11:03 72 18 155/94 99 06/16/16 10:55 98.4 Exam Constitutional: alert, oriented, well developed Psych: nl mood/affect Head: normocephalic Eyes: nl conjunctiva ENMT: nl external ears & nose Neck: No jvd Respiratory: clear to auscultation Cardiovascular: nl pulses, regular rate and rhythm, No murmurs/extra sounds Gastrointestinal: soft Musculoskeletal: nl extremities to inspection Extremities: normal pulses Neurological: nl mental status Results Result Diagram: 06/16/16 1108 06/16/16 1108 Results 24 hrs Laboratory Tests Test 06/16/16 11:08 Activated Partial Thromboplast Time 28.3 Anion Gap 17 H Basophils # 0.0 Basophils % 0.4 Blood Urea Nitrogen 19 Calcium Level 8.8 Carbon Dioxide Level 27 Chloride Level 102 Creatinine 1.22 Eosinophils # 0.4 Eosinophils % 3.6 Glucose Level 103 Hematocrit 45.8 Hemoglobin 15.5 INR International Normalized Ratio 0.99 Lymphocytes # 2.2 Lymphocytes % 21.7 Mean Corpuscular Hemoglobin 29.8 Mean Corpuscular Hemoglobin Concent 33.9 Mean Corpuscular Volume 87.9 Mean Platelet Volume 8.3 Monocytes # 1.1 H Monocytes % 10.6 Neutrophils # 6.3 Neutrophils % 63.7 Nucleated Red Blood Cells # 0.0 Nucleated Red Blood Cells % 0.0 Platelet Count 292 Potassium Level 4.4 Prothrombin Time 13.1 Prothrombin Time Ratio 1.0 Red Blood Count 5.22 Red Cell Distribution Width 13.9 Sodium Level 142 Troponin I 0.050 White Blood Count 9.9 Medications Medications Current Medications Insulin Human Regular 100 unit/ Sodium Chloride 100 ml @ 0 mls/hr Q0M ONCE IVPB ; Start 06/16/16 at 13:00; Stop 06/16/16 at 13:01 Norepinephrine 250 ml @ 0 mls/hr ONCE ONCE IV ; Start 06/16/16 at 13:00; Stop 06/16/16 at 13:01 Epinephrine 4 mg/ Dextrose 250 ml @ 0 mls/hr ONCE ONCE IV ; Start 06/16/16 at 13:00; Stop 06/16/16 at 13:01 Phenylephrine HCl (Cuate-Synephrine) 250 ml @ 0 mls/hr ONCE ONCE IV ; Start 06/16 at 13:00; Stop 06/16/16 at 13:01 Aspirin 600 mg 600 mg ONCE ONCE FL ; Start 06/16/16 at 13:00; Stop 06/16/16 at 13:01 Heparin Sodium (Porcine) 80869 unit/Milrinone Lactate 10 mg/ Sodium Chloride 1, 011 ml @ 0 mls/hr ONCE ONCE SC ; Start 06/16/16 at 13:00; Stop 06/16/16 at 13: 01 Milrinone Lactate/ Sodium Chloride (Primacor/NS) 52 ml @ 0 mls/hr ONCE ONCE IV ; Start 06/16/16 at 13:00; Stop 06/16/16 at 13:01 Procedures Procedures cath and ekg findings discussed in the HPI. BAM BERTRAND Jun 16, 2016 12:50
[2016-06-16] MEDS ORDERED: HEPARIN (10000 UNITS/ML) 10,000 UNIT, MILRINONE LACTATE 10 MG in SOD CHLORIDE 0.9% 1,00... SC ONE (13:00)
[2016-06-16] MEDS ORDERED: MILRINONE LACTATE 2 MG in SOD CHLORIDE 0.9% 50 ML IV ONE (13:00)
[2016-06-16] MEDS ORDERED: NORepinephrine 8MG/250 ML (PMX 250 ML IV ONE (13:00)
[2016-06-16] MEDS ORDERED: PHENYLephrine 20MG IN 250 ML 250 ML IV ONE (13:00)
[2016-06-16] MEDS ORDERED: ASPIRIN 600 MG SUPP PR ONE (13:00)
[2016-06-16] MEDS ORDERED: INSULIN REGULAR, HUMAN 100 UNIT in SOD CHLORIDE 0.9% 99 ML IVPB ONE ×2 (13:00)
--- NOTE | 2016-06-16 13:02 | EN ---
Date/Time of Note Date/Time of Note DATE: 06/16/16 TIME: 12:53 Event Note Cardiology Cardiology Event Note Cardiac Catheterization Report Date of Procedure: June 16, 2016 Pre-Procedure Dx: Inferior STEMI Post-Procedure Dx: Three vessel severe coronary disease, unable to open the mid RCA or proximal LCX Procedures performed: Coronary angiography, intraaortic balloon pump Findings: Left main 20% proxima diseaes LAD 80% proximal lesion, then just after the takeoff of the first diagonal is an aneurysm, and following this a 99% mid lesion with LD 2 flow to the distal LAD LCX small OM branch, and then the vessel appears occluded. Faint right to left collaterals noted on injection of the RCA The right coronary artery is dominant. There is a 100% lesion of the mid RCA with right to right collaterals providing antegrade LD 1 flow. Indications: Patient presented with chest pain and dyspnea starting an hour and a half before presentation, and ST elevations in the inferior leads on ekg. Informed consent obtained. Patient received sedation with versed and fentanyl. Then access obtained in right radial artery after Kyle's test, modified Seldinger technique used, 6F sheath placed. Through the sheath, verapamil and ntg 200 mcg given. Using a J-wire, Neel catheter advanced to the aortic root, engaged the LM, and then a JR4 guide used to engage the RCA. Images taken with injection of contrast. Additional 5000 units of heparin given, and ACT checked. Initially it was decided to intervene on the RCA lesion. Wires would not cross , further images taken, and it was decided that this lesion was likely chronic. Next, a FL3.5 guide placed, and three different wires used to try to cross the proximal LCX, a luge, BMW and army helicopter pilot 50, none were successful. Dr. Back consulted, who agreed to take the patient to the OR emergently. An IABP was placed in the groin -- fluoroscopy identified landmarks and using modified seldinger technique, the rfa was accessed, a 7f sheath placed. Through the sheath the IABP was advanced to the georgette. Discussion: Inferior STEMI in patient with known cardiomyopathy (EF 45%) who did not fill his beta maria e or bernard after discharge. Unable to cross either of two significant occlusions. He will emergently undergo cabg. BAM BERTRAND Jun 16, 2016 13:02
--- NOTE | 2016-06-16 13:17 | CONS ---
DATE OF ADMISSION: 06/16/2016 DATE OF CONSULTATION: 06/16/2016 REQUESTING PHYSICIAN: Teena Roberts MD CONSULTING PHYSICIAN: Tita Back MD REASON FOR CONSULTATION: Evaluate for emergency CABG. HISTORY OF PRESENT ILLNESS: The patient is a 61-year-old male who was admitted with a STEMI. He wa s taken emergently to the laboratory chemist. He coded twice requiring cardioversion and on angiogram he was found to have a 99% proximal LAD stenosis with a totally occluded circumflex artery and a subtotal R CA. Despite multiple attempts to open the circumflex, it was unable to be done. He had an intra-ao rtic balloon pump placed. We were asked to see him regarding emergency CABG. PAST MEDICAL HISTORY: Skin cancer. No history of diabetes. PAST SURGICAL HISTORY: Skin cancer removal. ALLERGIES: NO KNOWN ALLERGIES. CURRENT MEDICATIONS: He is currently on heparin. Unknown what his home medications were. REVIEW OF SYSTEMS: Unobtainable. PHYSICAL EXAMINATION: GENERAL: The patient on the laboratory chemist table. VITAL SIGNS: Show a heart rate in the 110s with a blood pressure 110/60, respiratory rate 16. HEAD: Pupils equal and reactive to light. NECK: Supple, no adenopathy. LUNGS: Clear. CARDIOVASCULAR: Tachycardic. No murmurs. ABDOMEN: Soft, nontender. EXTREMITIES: He has an intra-aortic balloon pump in the right femoral artery and he had cardiac cat heterization via the right radial artery. Extremities cool. NEUROLOGIC: He is awake and alert. LABORATORY DATA: His hematocrit is 45.8, platelet count is 292. Creatinine is 1.22. Troponin was 0.05. ASSESSMENT AND PLAN: This is a 61-year-old male with ST elevation myocardial infarction and severe 3-vessel coronary artery disease status post cardiac arrest x2. I explained to the patient the bene fits, risks and alternatives of surgery. The risks are, but not limited to bleeding, infection, str alejandra, myocardial infarction, renal and respiratory failure and . I will also talk to his tiana vitale to surgery to explained the benefits and risks. Dictated By: TITA BACK MD AA/NTS Conf#: [id number] DID#: [id number] CC: TITA BACK MD;*EndCC*
[2016-06-16] MEDS ORDERED: AMINOCAPROIC ACID 5 GM INJ ONE ×2 (13:42→15:52)
[2016-06-16] MEDS ORDERED: CEFAZOLIN 1 GM INJ ONE ×2 (13:42→15:52)
[2016-06-16] MEDS ORDERED: FUROSEMIDE 20 MG INJ ONE (14:07)
[2016-06-16] MEDS ORDERED: AMIODARONE 150 MG INJ ONE (14:37)
[2016-06-16] MEDS ORDERED: FUROSEMIDE 10 ML ONE (15:15)
[2016-06-16] MEDS ORDERED: PROTAMINE 250 MG INJ ONE (15:52)
[2016-06-16] MEDS ORDERED: PHENYLephrine 10 MG INJ ONE (16:14)
[2016-06-16] MEDS ORDERED: VASOPRESSIN 20 UNITS INJ ONE (16:14)
[2016-06-16] MEDS ORDERED: POTASSIUM CHLORIDE 40 MEQ, CALCIUM CHLORIDE 10% 1 GM in DEXTROSE 5%-0.225% NACL 1,000 ML IV SCH (17:12)
[2016-06-16] MEDS ORDERED: POTASSIUM CHLORIDE 100 ML ONE (17:13)
[2016-06-16] MEDS ORDERED: ALBUMIN HUMAN 5% 250 ML ONE (17:18)
[2016-06-16] MEDS ORDERED: ROCURONIUM 50 MG INJ ONE (17:21)
[2016-06-16] MEDS ORDERED: ETOMIDATE 20 MG INJ ONE (17:21)
[2016-06-16] MEDS ORDERED: LIDOCAINE 2% (SDV) 5 ML INJ ONE (17:21)
[2016-06-16] MEDS ORDERED: OXYCODONE/ACETAMINOPHEN (5/325) TAB PO PRN ×2 (17:30)
[2016-06-16] MEDS ORDERED: EPINEPHrine 4 MG in DEXTROSE 5% 246 ML IV SCH (17:30)
[2016-06-16] MEDS ORDERED: NITROGLYCERIN 50 MG/D5W (PMX) 250 ML IV SCH (17:30)
[2016-06-16] MEDS ORDERED: ONDANSETRON 4 MG INJ IV PRN (17:30)
[2016-06-16] MEDS ORDERED: HYDROmorphONE 1 MG/ML SYG IV PRN (17:30)
[2016-06-16] MEDS: PROPOFOL 100 ML IV SCH (17:30)
[2016-06-16] MEDS ORDERED: DOPamine-D5W 1.6 MG/ML 250 ML IV SCH (17:30)
[2016-06-16] MEDS ORDERED: DEXTROSE 50% 50 ML SYRINGE IV PRN (17:30)
[2016-06-16] MEDS ORDERED: INSULIN REGULAR, HUMAN 100 UNIT in SOD CHLORIDE 0.9% 99 ML IV SCH ×2 (17:30)
[2016-06-16] MEDS: POTASSIUM CHLORIDE 50 ML IVPB PRN ×3 (18:00→20:25)
[2016-06-16 18:03] LABS: INR 1.25; PROTIME 15.8 Sec (12.2-14.2); PT RATIO 1.2
[2016-06-16 18:08] LABS: POTASSIUM 3.6 mmol/L (3.5-5.1)
[2016-06-16 18:09] LABS: CALCIUM 7.4 mg/dl (8.4-10.2); CREATININE 1.14 mg/dl (0.61-1.24); MAGNESIUM 1.6 mg/dl (1.7-2.5)
[2016-06-16 18:28] LABS: Arterial Base Excess -3.7 mmol/L (-3.0-3); Arterial COHb 0.3 % (0.0-3.0); Arterial Fraction of Oxyhgb 96.2 % (93.0-99.0); Arterial HCO3 23.8 mmol/L (22.0-26.0); Arterial MetHb 0.6 % (0.0-1.5); Arterial Total Hemglobin 15.2 g/dl (12.0-18.0); MODE VENT - AC
--- NOTE | 2016-06-16 18:30 | OPR ---
DATE OF OPERATION: 06/16/2016 PREOPERATIVE DIAGNOSES: STEMI, cardiogenic shock, status post cardiac arrest. POSTOPERATIVE DIAGNOSES: STEMI, cardiogenic shock, status post cardiac arrest. t PROCEDURE: Emergency CABG x4, WRIGHT to LAD, SVG to distal right coronary artery , SVG to diagonal artery sequence obtuse marginal artery, endoscopic vein harvesting, epiaortic scanning of the ascending aorta. SURGEON: Tita Back M.D. CONSTRUCTION PRODUCER: Chi Sanchez SECOND GEOTECHNICAL OPERATING ENGINEER: Kelly Mc ANESTHESIOLOGIST: Dr. Richey. TYPE OF ANESTHESIA: General endotracheal. COMPLICATIONS: None. FINDINGS: Preoperatively, in the microbiology lab analyst, he coded. He had a cardiac arrest x2. Intraoperatively, he had a cardiac arrest x1. All of the times he was resuscitated. He was found to have LV function of about 40%, which improved after revascularization to 50% with improvement of the inferior lateral wall function. His WRIGHT to LAD had a flow of 68 mL per minute. The OM diagonal had a flow of 76 mL per minute. His RCA had a flow of 50 mL per minute. His RCA was a 2.5-mm vessel. His LAD was a 2.5-mm vessel. His diagonal artery was a 2- mm vessel, and his OM was 2.5-mm vessel. No atheromas or plaques were noted in the ascending aorta. INDICATION: Patient is a 61-year-old gentleman who came in as a STEMI. He was taken to the microbiology lab analyst. He was found to have an occluded obtuse marginal circumflex artery, which was the culprit vessel, most likely. He arrested x2, requiring cardioversion. He also had a 99% LAD and a subtotal RCA. He was referred for emergency CABG. He had intraaortic balloon pump placed. The benefits, risks, and alternatives were explained to the patient, who understood and agreed. PROCEDURE: Patient was brought to the operating room and placed in supine position. He was induced and underwent general endotracheal intubation without complications. Lines were placed. Antibiotics were given. He was prepped and draped in a sterile fashion. Median sternotomy was made simultaneous to endoscopic vein harvesting from the left lower extremity. WRIGHT was taken down using clips and cautery. Heparin was given. Pericardium was established. Immediately, once we opened the pericardium, he arrested. We performed intraoperative myocardial massage and then cardioverted into normal sinus rhythm. We quickly gave heparin and cannulated the ascending aorta in the right atrium, and we also placed an ascending aorta vent. Once all our lines were in place and the ACT was adequate , we commenced cardiopulmonary bypass. We arrested the heart using antegrade cardioplegia and topical ice. We cooled him to 35 degrees Celsius. Once the heart was arrested, we identified a large obtuse marginal artery. We made an arteriotomy, extended with the Randall scissors, and anastomosed our vein graft using 7-0 Prolene in running fashion in an end-to-side manner. We then identified the diagonal artery, made arteriotomy and venotomy, formed end-to- side anastomosis using 7-0 Prolene in running fashion in an end-to-side manner. Vein grafts cut to length. We then identified the distal RCA, made the arteriotomy, and extended with Randall scissors, anastomosed our vein graft using 7-0 Prolene in running fashion in an end-to-side manner. We then identified the mid LAD, made the arteriotomy, extended with Randall scissors, and anastomosed our WRIGHT using 7-0 Prolene in running fashion in an end-to-side manner. We rewarmed the patient, gave warm blood, removed the crossclamp, cardioverted to normal sinus rhythm, cut the vein grafts to length. We placed the partial clamp on the ascending aorta, made 2 aortotomies, anastomosed our right vein graft to the distal aortotomy using 5-0 Prolene in running fashion in an end-to-side manner. The same was done for the other vein grafts. Partial clamp was removed. Vein grafts were de-aired. Ventricular pacing wires were placed. We then began ventilating the patient, weaned him off cardiopulmonary bypass. He did require epinephrine, dopamine, and Primacor. Once he was off bypass, we began protamine. Once protamine was in, we de-lined the patient. We placed the anterior mediastinal tube, and once hemostasis was achieved, we closed the chest using interrupted cables, followed by closure of the fascia using 0 Vicryl sutures, followed by closure of the skin using 4-0 Monocryl in subcuticular fashion. Lower extremity incisions were closed using 3 -00 Vicryl for the deep layer and 4-0 Monocryl for the skin. Dressings were applied. Patient was brought to the ICU in critical but stable condition. Dictated By: TITA LEAHY/NORM Conf#: [id number] DID#: [id number] CC: BAM BERTRAND MD;*EndCC* MTDD
[2016-06-16 18:31] LABS: MODE VENT - AC; MetHgb Mixed Venous 0.5 %; Mixed Venous COHb 0.3 %; Mixed Venous Fraction OxyHgb 77.8 %; Mixed Venous Oxygen Sat 78.4 mmHG (65.0-75.0); Mixed Venous Total Hemglobin 15.2 g/dl; Sample Type BLMV
--- NOTE | 2016-06-16 18:52 | RADRPT ---
PROCEDURE: XR Chest. CLINICAL INDICATION: Chest pain. Postop. TECHNIQUE: Single frontal view. COMPARISON: 06/16/2016. FINDINGS: The endotracheal tube and right internal jugular vein [place]-Brent catheter are in satisfactory positio n. There are new sternal wires from CABG. The heart is mildly enlarged. There is calcification in the aorta consistent with atherosclerosis. There is no pleural effusion. There is no pneumothorax. IMPRESSION: 1. Satisfactory postoperative appearance of the chest. RPTAT: QQ .Steve Lr MD, MD Date Time Electronically viewed and signed by .Steve Lr MD, MD on 06/16/2016 18:52 .R/
[2016-06-16 18:53] LABS: HEMATOCRIT 42.1 % (42.0-52.0); MEAN CORPUSCULAR HEMOGLOBIN 29.6 pg (29.0-33.0); MEAN CORPUSCULAR HGB CONC 33.3 g/dl (32.0-37.0); MEAN PLATELET VOLUME 9.2 fl (7.4-10.4); PLATELET COUNT 284 10^3/UL (140-440); RED BLOOD COUNT 4.73 10^6/ul (4.70-6.10); RED CELL DISTRIBUTION WIDTH 14.1 % (11.5-14.5); UNCORRECTED WBC 35.8 10^3/ul (4.8-10.8)
[2016-06-16 18:54] LABS: CONDITION 1; LH ANALYZER COMMENTS 1; SUSPECT 1
--- NOTE | 2016-06-16 18:58 | HP ---
DATE OF ADMISSION: 06/16/2016 PRESENTING COMPLAINT: Cardiac arrest. HISTORY OF PRESENTING COMPLAINT: Mr. Rain is a 61-year-old male from whom I can ____ get no histor y because at this time, he is intubated and sedated, but apparently has a history of obesity as well as small-bowel obstruction per charts and no other history. He came into the emergency room today with chest pain and mild indigestion. The patient was walking through triage and the triage EKG sh owed an ST elevation myocardial infarction. Per report, the patient reports that the pain is in the central chest radiating down both arms, associated with mild shortness of breath, but without diaph oresis, nausea or vomiting. ____ EKG findings, he was immediately taken to recyclable products sorter for an emergency angiogram and suffered a ca rdiac arrest in the recyclable products sorter. For details of this, please review Dr. Roberts's notes. An intraao rtic balloon pump was then placed and recommendation was for an emergent coronary artery bypass surg josey for CVA, 3-vessel coronary artery disease and inferior wall ST elevation myocardial infarction t hat was not susceptible to angiographic repair. Currently, the patient has undergone a successful CABG, which I was told of was a 4-vessel repair. At this time the details of postoperative notes ar e pending and he is being admitted to the intensive care unit for continued management and care. He remains intubated and sedated; however, his vital signs are grossly stable. PAST MEDICAL HISTORY: Positive for vertigo, a history of cardiomyopathy for which patient apparentl y has been noncompliant with filling his outpatient medications. Last known ejection fraction of 45 %. PAST SURGICAL HISTORY: Positive for history of umbilical hernia repair. ALLERGIES: THE PATIENT HAS NO KNOWN DRUG ALLERGIES. SOCIAL HISTORY: Per documentation is negative for tobacco, alcohol or illicit drug use. FAMILY HISTORY: Unobtainable at this time. REVIEW OF SYSTEMS: Unobtainable at this time. PHYSICAL EXAMINATION: VITAL SIGNS: Temperature 97.9, heart rate is 113, blood pressure 108/63 by arterial line, saturatio ns 100%. The patient is on the mechanical ventilator. GENERAL: Intubated and sedated. HEAD: Pupils equal and reactive. ENT intubated to vent. CHEST: Reduced air entry but clear breath sounds bilaterally. Midline incision is covered in dress ing, this was not exposed on this evaluation. CARDIOVASCULAR: Slightly tachycardic S1, S2, no murmurs. ABDOMEN: Mildly distended but soft, hypoactive bowel sounds. EXTREMITIES: Lower extremity negative for edema. GENITOURINARY: Normal penis, normal scrotum. LABORATORY VALUES: Right now we have a CBC that was basically unremarkable done at 11:00 a.m. At t his time it is 6:14 p.m. We have a basic metabolic profile done about the same time that basically w as unremarkable as well. Troponin level at that time was 0.050. A repeat basic metabolic profile i s currently pending and a coagulation profile postoperatively is also currently pending. An EKG don e preoperatively was basically unremarkable on my review, and EKG findings are summarized in HPI. IMPRESSION: A 61-year-old male managed as follows: 1. Coronary artery disease, status post inferior wall ST elevation myocardial infarction that was n ot amenable to angiographic repair, status post emergent coronary artery bypass surgery, 4-vessel re pair. 2. Acute respiratory failure, now ventilator dependent secondary to #1. 3. Status post cardiac arrest per reports x2, one in ____, one in the operating room with return o f spontaneous circulation both times. 4. Chronic cardiomyopathy. 5. History of vertigo. 6. Obesity. PLAN: To continue close and intensive cardiac monitoring. The patient has an intraaortic balloon p ump in place. Cardiology to manage. We will pass NG tube initially to suction and for meds ____ on ce there is no discharge. The patient will continue on daily Aspirin, cardiology and pain control and basically ICU supportive care. He will also be started on statin therapy and further interventi ons will depend on his clinical course. There is no family at the bedside to update us. I have spo arnold with nursing staff. I have spoken with consulting physicians. ____ time has been more than an hour. Dictated By: BRICE MONTELONGO MD, BA/NORM Conf#: [id number] DID#: [id number]
[2016-06-16 19:01] LABS: TROPONIN-I 40.7 ng/ml (0.00-0.12)
[2016-06-16 19:30] LABS: LYMPHOCYTES # 2.9 10^3/ul (0.8-2.9); MONOCYTE # 3.2 10^3/ul (0.3-0.9)
[2016-06-16] MEDS: CEFAZOLIN 1 GM/50 ML (PMX) 50 ML IVPB SCH (19:40)
[2016-06-16] MEDS: ACCUCHECK XX SCH ×5 (19:56→23:50)
[2016-06-16] MEDS: MAGNESIUM SULFATE 1 GM/D5W 100 ML IVPB PRN ×2 (20:22→21:31)
[2016-06-16] MEDS: DOCUSATE SODIUM 100 MG CAP PO SCH (21:00)
[2016-06-16] MEDS: FAMOTIDINE 20 MG INJ IV SCH (21:07)
[2016-06-16] MEDS: LEVETIRACETAM IV 500 MG in SOD CHLORIDE 0.9% 100 ML IVPB SCH (21:41)
[2016-06-16] MEDS ORDERED: AMIODARONE 900 MG in DEXTROSE 5% 482 ML IV SCH (22:00)
[2016-06-16] MEDS ORDERED: NORepinephrine 8MG/250 ML (PMX 250 ML IV SCH (22:00)
[2016-06-16] MEDS: ACETAMINOPHEN 650 MG SUPP PR PRN (22:26)
[2016-06-16 23:37] LABS: BARBITURATES NEGATIVE (NEGATIVE); BENZODIAZEPINES POSITIVE (NEGATIVE)
[2016-06-16 23:38] LABS: CANNABINOIDS NEGATIVE (NEGATIVE); COCAINE NEGATIVE (NEGATIVE); OPIATES NEGATIVE (NEGATIVE)
[2016-06-17] VITALS (111 sets, daily range): BP systolic 75–123; BP diastolic 39–79; PULSE 83–156; RESP 16–27; TEMP 100.1–102.6
[2016-06-17 00:07] LABS: POTASSIUM 3.9 mmol/L (3.5-5.1)
[2016-06-17 00:10] LABS: MAGNESIUM 2.3 mg/dl (1.7-2.5)
[2016-06-17] MEDS: POTASSIUM CHLORIDE 50 ML IVPB PRN ×3 (00:19→19:38)
[2016-06-17] MEDS: ACCUCHECK XX SCH ×24 (01:15→23:30)
[2016-06-17] MEDS: CEFAZOLIN 1 GM/50 ML (PMX) 50 ML IVPB SCH ×2 (01:17→09:59)
[2016-06-17] MEDS: HYDROmorphONE 1 MG/ML SYG IV PRN ×2 (02:28→20:39)
[2016-06-17] MEDS: PROPOFOL 100 ML IV SCH ×3 (02:32→15:51)
[2016-06-17 04:47] LABS: BASOPHILS % 0.1 % (0.0-2.0); EOSINOPHILS % 0.1 % (0.0-7.0); HEMATOCRIT 41.3 % (42.0-52.0); HEMOGLOBIN 13.9 g/dl (14.0-18.0); LYMPHOCYTES # 1.9 10^3/ul (0.8-2.9); MEAN CORPUSCULAR HEMOGLOBIN 29.7 pg (29.0-33.0); MEAN CORPUSCULAR HGB CONC 33.6 g/dl (32.0-37.0); MEAN CORPUSCULAR VOLUME 88.4 fl (82.0-101.0); MEAN PLATELET VOLUME 8.8 fl (7.4-10.4); MONOCYTE # 1.8 10^3/ul (0.3-0.9); MONOCYTES % 10.9 % (0.0-11.0); NEUTROPHIL # 13.2 10^3/ul (1.6-7.5); NEUTROPHILS % 77.9 % (39.0-77.0); PLATELET COUNT 258 10^3/UL (140-440); RED BLOOD COUNT 4.67 10^6/ul (4.70-6.10); RED CELL DISTRIBUTION WIDTH 13.8 % (11.5-14.5); UNCORRECTED WBC 16.9 10^3/ul (4.8-10.8); WHITE BLOOD COUNT 16.9 10^3/ul (4.8-10.8)
[2016-06-17 04:56] LABS: INR 1.16; PROTIME 14.8 Sec (12.2-14.2); PT RATIO 1.2
[2016-06-17 04:56] LABS: AADO2 Arterial 244.7 mmHg (7.0-24.0); Arterial Base Excess 0.1 mmol/L (-3.0-3); Arterial COHb 0.3 % (0.0-3.0); Arterial HCO3 23.5 mmol/L (22.0-26.0); Arterial MetHb 0.5 % (0.0-1.5); Arterial Total Hemglobin 14.6 g/dl (12.0-18.0); MODE VENT - AC
[2016-06-17 04:57] LABS: PARTIAL THROMBOPLASTIN TIME 30.5 Sec (25.0-35.0)
[2016-06-17 04:59] LABS: POTASSIUM 4.9 mmol/L (3.5-5.1)
[2016-06-17 05:02] LABS: CREATININE 1.14 mg/dl (0.61-1.24)
[2016-06-17 05:03] LABS: CALCIUM 7.8 mg/dl (8.4-10.2)
[2016-06-17 05:11] LABS: CONDITION 1
--- NOTE | 2016-06-17 06:31 | PN ---
Date/Time of Note Date/Time of Note DATE: 06/17/16 TIME: 06:30 Assessment/Plan Lines/Catheters IV Catheter Type (from Nrs): Lawn Brent Solis in Place (from Nrs): Yes Assessment/Plan Assessment/Plan awake follows commands labs ok still on drips BP in 100s, good urine output wean drips leave IABP for today Exam/Review of Systems Vital Signs Vitals Vital Signs Date Time Temp Pulse Resp B/P Pulse Ox O2 Delivery O2 Flow Rate FiO2 06/17/16 06:00 101.3 94 20 93/57 99 06/17/16 05:24 50 06/16/16 11:06 Nasal Cannula 2 Intake and Output 06/16/16 06/16/16 06/17/16 15:00 23:00 07:00 Intake Total 2558.4 ml 898.0 ml Output Total 4955 ml 883 ml Balance -2396.6 ml 15.0 ml Results Result Diagram: 06/17/16 0420 06/17/16 0420 TITA CIFUENTES MD Jun 17, 2016 06:31
--- NOTE | 2016-06-17 06:48 | RADRPT ---
PROCEDURE: XR, Chest. CLINICAL INDICATION: Follow up for respiratory distress/postop follow-up for open heart surgery. TECHNIQUE: AP chest. COMPARISON: Chest, 06/16/2016. FINDINGS: The heart is not enlarged. There is no acute infiltrate in the lungs. The lungs are well expanded. No pleural effusion. The ET tube, right [place]-Brent catheter and mediastinal drain remain in good position. IMPRESSION: 1. Unremarkable postop x-ray. RPTAT: GG .Mark Hunter MD, MD Date Time Electronically viewed and signed by .Mark Hunter MD, MD on 06/17/2016 06:48 .Y/
[2016-06-17] MEDS: ALBUMIN HUMAN 5% 250 ML IV SCH ×2 (06:52→08:21)
[2016-06-17] MEDS: FAMOTIDINE 20 MG INJ IV SCH ×2 (08:16→20:14)
[2016-06-17] MEDS ORDERED: ASPIRIN 325 MG TAB PO SCH (09:00)
[2016-06-17] MEDS: METOPROLOL 25 MG TAB NGT SCH ×2 (09:00→21:51)
--- NOTE | 2016-06-17 09:08 | PN ---
Date/Time of Note Date/Time of Note DATE: 06/17/16 TIME: 09:00 Assessment/Plan VTE Prophylaxis VTE Prophylaxis Intervention: SCD's Lines/Catheters IV [facility]ter [facility]from [facility] Cordis Urinary Cath still in place: Yes Reason Cath still needed: other (indicate) (intubated) Assessment/Plan Chief Complaint/Hosp Course Patient presents two days after discharge for SBO with a STEMI and VF arrest, has 3 vessel coronary disease and known cardiomyopathy, underwent emergent CABG. Problems: Assessment/Plan STEMI of inferior wall, likely culprit vessel is occluded LCX and large first obtuse marginal Post op day 1 post CABG VF arrests due to acute CT and ongoing ischemia Cardiomyopathy Recommendations: IABP, drips, and postop care as per surgical team Will initiate appropriate medical therapy for post-CT -- asa 81, clopidogrel 75 , high -dose statin therapy, and metoprolol tartrate 25 mg bid Amiodarone no longer needed as patient's VF was secondary to ongoing ischemia, which has resolved with bypass of his occluded vessel Will check lipid panel Subjective 24 Hr Interval Summary Free Text/Dictation 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 He underwent CABG x 4 , had a cardiac arrest event in the OR for which he was shocked. Patient stay in ICU overnight has been uneventful, telemetry demonstrates pvc's, and a few couplets. He remains intubated and on an intraaortic balloon pump. Subjective hx not possible: pt non-verbal (intubated) Exam/Review of Systems Vital Signs Vitals Vital Signs Date Time Temp Pulse Resp B/P Pulse Ox O2 Delivery O2 Flow Rate FiO2 06/17/16 07:00 101.4 96 20 87/50 100 06/17/16 05:24 50 06/16/16 11:06 Nasal Cannula 2 Intake and Output 06/16/16 06/16/16 06/17/16 15:00 23:00 07:00 Intake Total 2558.4 ml 898.0 ml Output Total 4955 ml 964 ml Balance -2396.6 ml -66.0 ml Exam Constitutional: other (intubated and sedated) Head: normocephalic ENMT: intubated Neck: No bruits, No jvd Respiratory: clear to auscultation Cardiovascular: regular rate and rhythm, No bruits, No murmurs/extra sounds Gastrointestinal: non-tender, soft Musculoskeletal: nl extremities to inspection Skin: nl turgor Results Result Diagram: 06/17/16 0420 06/17/16 0420 Results 24 hrs Laboratory Tests Test 06/16/16 11:08 06/16/16 17:12 06/16/16 17:45 06/16/16 17:51 Activated Partial Thromboplast Time 28.3 39.0 H Anion Gap 17 H 19 H Basophils # 0.0 Basophils % 0.4 Blood Urea Nitrogen 19 17 Calcium Level 8.8 7.4 L Carbon Dioxide Level 27 25 Chloride Level 102 105 Creatinine 1.22 1.14 Eosinophils # 0.4 Eosinophils % 3.6 Glucose Level 103 200 Hematocrit 45.8 42.1 Hemoglobin 15.5 14.0 INR International Normalized Ratio 0.99 1.25 Lymphocytes # 2.2 2.9 Lymphocytes % 21.7 8.0 L Mean Corpuscular Hemoglobin 29.8 29.6 Mean Corpuscular Hemoglobin Concent 33.9 33.3 Mean Corpuscular Volume 87.9 89.0 Mean Platelet Volume 8.3 9.2 Monocytes # 1.1 H 3.2 H Monocytes % 10.6 9.0 Neutrophils # 6.3 29.0 H Neutrophils % 63.7 81.0 H Nucleated Red Blood Cells # 0.0 Nucleated Red Blood Cells % 0.0 Platelet Count 292 284 Potassium Level 4.4 3.6 Prothrombin Time 13.1 15.8 #H Prothrombin Time Ratio 1.0 1.2 Red Blood Count 5.22 4.73 Red Cell Distribution Width 13.9 14.1 Sodium Level 142 145 H Troponin I 0.050 40.700 *H White Blood Count 9.9 35.8 #H Arterial Blood HCO3 23.8 Arterial Blood Base Excess -3.7 L Arterial Blood Oxygen Saturation 97.1 Kyle Test N/A Arterial Blood Gas Puncture Site A-Line Arterial Blood Carboxyhemoglobin 0.3 Arterial Blood Date Drawn 06/16/2016 6:10:04 PM Arterial Blood Methemoglobin 0.6 Arterial Blood pCO2 (Temp correct) 52.4 H Arterial Blood pH (Temp corrected) 7.275 *L Arterial Blood pO2 (Temp corrected) 106.6 H Blood Gas A-a O2 Differential 554.0 H Blood Gas Actual Respiration Rate 16 Blood Gas Critical Value Read Back L ANTOLIN RN Blood Gas Low PEEP Setting 8.0 Blood Gas Modality VENT - AC Blood Gas Notified Time 06/16/2016 6:28:21 PM Blood Gas Notified Whom DT Blood Gas Respiration Rate 16.0 Blood Gas Specimen Source Blood arterial Blood Gas Temperature 37.0 Blood Gas Tidal Volume 600.0 FiO2 100.0 Oxyhemoglobin Percent 96.2 Total Hemoglobin 15.2 Band Neutrophils % 2.0 Creatine Kinase 1445 H Creatine Kinase Index 14.0 Creatinine Kinase MB (Mass) 202.00 H Differential Comment Magnesium Level 1.6 L Bedside Glucose 176 Test 06/16/16 18:11 06/16/16 19:50 06/16/16 21:04 06/16/16 21:30 Kyle Test N/A Arterial Blood Date Drawn 06/16/2016 6:15:59 PM Arterial Blood Gas Puncture Site VENOUS LINE Blood Gas Actual Respiration Rate 16 Blood Gas Low PEEP Setting 8.0 Blood Gas Modality VENT - AC Blood Gas Notified Time 06/16/2016 6:30:41 PM Blood Gas Notified Whom DT Blood Gas Respiration Rate 16.0 Blood Gas Specimen Source BLMV Blood Gas Temperature 37.0 Blood Gas Tidal Volume 600.0 FiO2 100.0 Mixed Venous Bld Carboxyhemoglobin 0.3 Mixed Venous Blood Methemoglobin 0.5 Mixed Venous Blood O2 Saturation 78.4 H Mixed Venous Blood Oxyhemoglobin 77.8 Mixed Venous Blood PO2 47.1 H Mixed Venous Blood Total Hemoglobin 15.2 Bedside Glucose 130 144 Urine Amphetamines Screen POSITIVE Urine Barbiturates NEGATIVE Urine Benzodiazepines Screen POSITIVE Urine Cannabinoids NEGATIVE Urine Cocaine Screen NEGATIVE Urine Opiates Screen NEGATIVE Test 06/16/16 21:54 06/16/16 22:36 06/16/16 22:53 06/17/16 01:14 Bedside Glucose 136 139 120 Creatine Kinase 2720 #H Creatine Kinase Index 8.2 Creatinine Kinase MB (Mass) 224.00 H Magnesium Level 2.3 Potassium Level 3.9 Troponin I 91.000 *H Test 06/17/16 03:53 06/17/16 04:20 06/17/16 05:00 06/17/16 05:59 Bedside Glucose 106 129 Activated Partial Thromboplast Time 30.5 Anion Gap 11 # Basophils # 0.0 Basophils % 0.1 Blood Urea Nitrogen 14 Calcium Level 7.8 L Carbon Dioxide Level 27 Chloride Level 110 Creatinine 1.14 Eosinophils # 0.0 Eosinophils % 0.1 Glucose Level 137 # Hematocrit 41.3 L Hemoglobin 13.9 L INR International Normalized Ratio 1.16 Lymphocytes # 1.9 Lymphocytes % 11.0 L Magnesium Level 2.0 Mean Corpuscular Hemoglobin 29.7 Mean Corpuscular Hemoglobin Concent 33.6 Mean Corpuscular Volume 88.4 Mean Platelet Volume 8.8 Monocytes # 1.8 H Monocytes % 10.9 Neutrophils # 13.2 H Neutrophils % 77.9 H Nucleated Red Blood Cells # 0.0 Nucleated Red Blood Cells % 0.0 Platelet Count 258 Potassium Level 4.9 Prothrombin Time 14.8 H Prothrombin Time Ratio 1.2 Red Blood Count 4.67 L Red Cell Distribution Width 13.8 Sodium Level 143 White Blood Count 16.9 #H Arterial Blood HCO3 23.5 Arterial Blood Base Excess 0.1 Arterial Blood Oxygen Saturation 98.8 H Kyle Test N/A Arterial Blood Gas Puncture Site A-Line Arterial Blood Carboxyhemoglobin 0.3 Arterial Blood Date Drawn 06/17/2016 4:48:07 AM Arterial Blood Methemoglobin 0.5 Arterial Blood pCO2 (Temp correct) 34.3 L Arterial Blood pH (Temp corrected) 7.453 H Arterial Blood pO2 (Temp corrected) 145.4 H Blood Gas A-a O2 Differential 244.7 H Blood Gas Actual Respiration Rate 20 Blood Gas Inspiratory Pressure 26.0 Blood Gas Low PEEP Setting 8.0 Blood Gas Modality VENT - AC Blood Gas Notified Time 06/17/2016 4:56:11 AM Blood Gas Notified Whom KM Blood Gas Respiration Rate 20.0 Blood Gas Specimen Source Blood arterial Blood Gas Temperature 37.0 Blood Gas Tidal Volume 600.0 FiO2 60.0 Oxyhemoglobin Percent 98.0 Total Hemoglobin 14.6 Test 06/17/16 08:05 Bedside Glucose 145 Medications Medications Current Medications Potassium Chloride 40 meq/ Calcium Chloride 1 gm/Dextrose/ Sodium Chloride 1, 030 ml @ 60 mls/hr [id number] IV Last administered on 06/16/16 19:47; Admin Dose 60 MLS/HR; Start 06/16/16 at 17:12 Cefazolin Sodium (Ancef 1 Gm/50 ml (Pmx)) 50 ml @ 100 mls/hr Q8H IVPB Last administered on 06/17/16 01:17; Admin Dose 100 MLS/HR; Start 06/16/16 at 17:30 ; Stop 06/17/16 at 09:59 Hydromorphone HCl (Dilaudid) 0.2 mg Q15M PRN IV PAIN LEVEL 1-5; Start 06/16/16 at 17:30 Hydromorphone HCl (Dilaudid) 0.4 mg Q15M PRN IV PAIN LEVEL 6-10 Last administered on 06/17/16 02:28; Admin Dose 0.4 MG; Start 06/16/16 at 17:30 Oxycodone/ Acetaminophen (Percocet (5/ 325)) 1 tab Q3H PRN PO PAIN LEVEL 1-5; Start 06/16/16 at 17:30 Oxycodone/ Acetaminophen (Percocet (5/ 325)) 2 tab Q3H PRN PO PAIN LEVEL 6-10; Start 06/16/16 at 17:30 Ondansetron HCl (Zofran Inj) 4 mg Q6H PRN IV NAUSEA AND/OR VOMITING; Start at 17:30 Famotidine (Pepcid Iv) 20 mg BID@08,20 IV Last administered on 06/17/16 08:16 ; Admin Dose 20 MG; Start 06/16/16 at 20:00 Acetaminophen 650 mg 650 mg Q3H PRN PO ELEVATED TEMPERATURE; Start 06/16/16 at 17:30 Magnesium Sulfate/ Dextrose (Magnesium Sulfate 1 Gm/D5W) 100 ml @ 100 mls/hr PRN PRN IVPB PENDING LAB VALUE Last administered on 06/16/16 21:31; Admin Dose 100 MLS/HR; Start 06/16/16 at 17:30 Diagnostic Test (Pha) (Accucheck) 1 ea Q1H XX Last administered on 06/17/16 08 :11; Admin Dose 1 EA; Start 06/16/16 at 17:30 Dextrose (D50w Syringe) 25 ml Q15M PRN IV Till BS 80 mg/dL or above x2; Start 06/16/16 at 17:30 Dextrose 50 ml 50 ml Q15M PRN IV Till BS 80 mg/dL or above x2; Start 06/16/16 at 17:30 Propofol (Diprivan) 100 ml @ 3.273 mls/ hr Q12H IV Last administered on 02:32; Admin Dose 13 MLS/HR; Start 06/16/16 at 17:30 Docusate Sodium 100 mg 100 mg BID PO ; Start 06/16/16 at 21:00 Levetiracetam 500 mg/Sodium Chloride 105 ml @ 420 mls/hr Q12 IVPB Last administered on 06/16/16 21:41; Admin Dose 420 MLS/HR; Start 06/16/16 at 21:00 Norepinephrine/ Dextrose (Levophed/D5W) 500 ml @ 1.87 mls/hr TITRATE IV Last administered on 06/17/16 02:40; Admin Dose 15 MLS/HR; Start 06/17/16 at 04:00 Acetaminophen (Tylenol Supp) 650 mg Q6H PRN [place] FEVER Last administered on 22:26; Admin Dose 650 MG; Start 06/16/16 at 22:00 Atorvastatin Calcium (Lipitor) 80 mg HS NGT ; Start 06/17/16 at 21:00; Status UNV Aspirin (Aspirin) 81 mg DAILY NGT ; Start 06/17/16 at 09:00; Status UNV Clopidogrel Bisulfate (plaVIX) 75 mg DAILY NGT ; Start 06/17/16 at 09:00; Status UNV Metoprolol Tartrate (Lopressor) 25 mg BID NGT ; Start 06/17/16 at 09:00; Status UNV Procedures Procedures EKG at 00:13 this morning demonstartes NSR with RBBB, inferior Q waves, and PVC' s present BAM BERTRAND Jun 17, 2016 09:08
--- NOTE | 2016-06-17 09:43 | CONS ---
Date/Time of Note Date/Time of Note DATE: 06/17/16 TIME: 09:35 Assessment/Plan Assessment/Plan Additional Assessment/Plan Ventilator settings; AC of 20, tidal volume of 600, PEEP of 8, 50% FiO2. Chest x-ray was reviewed from yesterday as well as today. Yesterday's chest x- ray showing mild pulmonary edema. Chest x-ray from today showing significant interval improvement. Endotracheal tube is at an adequate level. Next Assessment recommendations; 1. Patient admitted for acute ID underwent emergent coronary angiography. PTCA could not be performed and subsequently required CABG surgery. 2. status post CPR x 2, difficult to rule out anoxic brain injury at this point. 3. Hypotension requiring pressor support as well as intra-aortic balloon pump at 1-1 augmentation. Next Continue current supportive care. Ventilator settings were adjusted. Assist- control rate has been brought down to 16, tidal volume down to 500 and FiO2 brought down to 40% with PEEP down to 5. An ABG will be performed in about an hour. Because of hypotension, I would recommend stopping propofol and switching the patient to Versed drip for sedation. Patient will need to have a sedation vacation given in 24 hours to assess mental status. Prognosis is guarded. Consultation Date/Type/Reason Admit Date/Time 06/16/2016 Date of Consultation: Jun 17, 2016 Type of Consultation: Pulmonary/critical care Reason for Consultation Patient admitted with acute ID. Underwent cardiac catheterization emergently however because of extensive disease and capacity could not be performed. Patient underwent urgent CABG surgery. Postop patient could not be extubated. He is on ventilator. Pulmonary consultation obtained for ongoing ventilator management. Next History presenting illness; patient is a 61-year-old white male who was brought into the emergency room yesterday with acute onset of chest pain,patient was diagnosed with acute ST elevation ID. Was taken to the [facility] emergently however because of extensive disease , angioplasty could not be performed despite multiple attempts. Patient also had 2 cardiac arrest events in the [facility] requiring CPR. Patient then underwent emergent CABG surgery. Postop could not be extubated and has been transferred to ICU intubated on ventilator. Patient also underwent intra-aortic balloon pump placement currently on 1-1 augmentation. History was obtained from medical records Past medical history; essentially none. Medications; were reviewed. Patient currently on pressor support with combination Levophed and dopamine drips. Also on amiodarone drip. Sedated with propofol drip. Allergies; are none. Social history; patient apparently smokes. Family history; not available. Occupational history; not available. Review of systems; currently unable to be obtained. General examination; elderly male, or intubated. Sedated. Eyes: no complaints ENT: no complaints Respiratory: shortness of breath Cardiovascular: chest pain Gastrointestinal: no complaints Genitourinary: no complaints Musculoskeletal: no complaints Skin: no complaints Neurologic: no complaints Endocrine: no complaints Psychological: nl mood/affect Social History Smoking Status: Never smoker Exam/Review of Systems Vital Signs Vitals Vital Signs Date Time Temp Pulse Resp B/P Pulse Ox O2 Delivery O2 Flow Rate FiO2 06/17/16 08:45 95 20 99/55 100 06/17/16 08:00 101.5 06/17/16 05:24 50 06/16/16 11:06 Nasal Cannula 2 Intake and Output 06/16/16 06/16/16 06/17/16 14:59 22:59 06:59 Intake Total 2414.3 ml 1042.1 ml Output Total 4712 ml 1126 ml Balance -2297.7 ml -83.9 ml Exam H EENT examination; supple neck, positive JVD. No lymphadenopathy. Midline trachea. Or intubated. No neck masses. No thyromegaly. It was a small bilaterally. Intraocular lens implants are present bilaterally. Patient is edentulous. Chest examination; diminished breath sounds bilaterally without any added sound. There is a dressing applied over the sternal scar. Left chest tube in place. S1-S2 audible, no murmurs. Regular rhythm. Abdomen examination; soft, nondistended. No organomegaly. Bowel sounds audible. Extremity examination; no peripheral edema. There are chronic appearing skin changes in both lower extremities. Dorsalis pedis pulses are not palpable bilateral. [place] [employer] examination; patient is sedated. Results Result Diagram: 06/17/16 0420 06/17/16 0420 Results 24 hrs Laboratory Tests Test 06/16/16 11:08 06/16/16 17:12 06/16/16 17:45 06/16/16 17:51 Activated Partial Thromboplast Time 28.3 39.0 H Anion Gap 17 H 19 H Basophils # 0.0 Basophils % 0.4 Blood Urea Nitrogen 19 17 Calcium Level 8.8 7.4 L Carbon Dioxide Level 27 25 Chloride Level 102 105 Creatinine 1.22 1.14 Eosinophils # 0.4 Eosinophils % 3.6 Glucose Level 103 200 Hematocrit 45.8 42.1 Hemoglobin 15.5 14.0 INR International Normalized Ratio 0.99 1.25 Lymphocytes # 2.2 2.9 Lymphocytes % 21.7 8.0 L Mean Corpuscular Hemoglobin 29.8 29.6 Mean Corpuscular Hemoglobin Concent 33.9 33.3 Mean Corpuscular Volume 87.9 89.0 Mean Platelet Volume 8.3 9.2 Monocytes # 1.1 H 3.2 H Monocytes % 10.6 9.0 Neutrophils # 6.3 29.0 H Neutrophils % 63.7 81.0 H Nucleated Red Blood Cells # 0.0 Nucleated Red Blood Cells % 0.0 Platelet Count 292 284 Potassium Level 4.4 3.6 Prothrombin Time 13.1 15.8 #H Prothrombin Time Ratio 1.0 1.2 Red Blood Count 5.22 4.73 Red Cell Distribution Width 13.9 14.1 Sodium Level 142 145 H Troponin I 0.050 40.700 *H White Blood Count 9.9 35.8 #H Arterial Blood HCO3 23.8 Arterial Blood Base Excess -3.7 L Arterial Blood Oxygen Saturation 97.1 Kyle Test N/A Arterial Blood Gas Puncture Site A-Line Arterial Blood Carboxyhemoglobin 0.3 Arterial Blood Date Drawn 06/16/2016 6:10:04 PM Arterial Blood Methemoglobin 0.6 Arterial Blood pCO2 (Temp correct) 52.4 H Arterial Blood pH (Temp corrected) 7.275 *L Arterial Blood pO2 (Temp corrected) 106.6 H Blood Gas A-a O2 Differential 554.0 H Blood Gas Actual Respiration Rate 16 Blood Gas Critical Value Read Back L ANTOLIN RN Blood Gas Low PEEP Setting 8.0 Blood Gas Modality VENT - AC Blood Gas Notified Time 06/16/2016 6:28:21 PM Blood Gas Notified Whom DT Blood Gas Respiration Rate 16.0 Blood Gas Specimen Source Blood arterial Blood Gas Temperature 37.0 Blood Gas Tidal Volume 600.0 FiO2 100.0 Oxyhemoglobin Percent 96.2 Total Hemoglobin 15.2 Band Neutrophils % 2.0 Creatine Kinase 1445 H Creatine Kinase Index 14.0 Creatinine Kinase MB (Mass) 202.00 H Differential Comment Magnesium Level 1.6 L Bedside Glucose 176 Test 06/16/16 18:11 2/21/17 19:50 06/16/16 21:04 06/16/16 21:30 Kyle Test N/A Arterial Blood Date Drawn 06/16/2016 6:15:59 PM Arterial Blood Gas Puncture Site VENOUS LINE Blood Gas Actual Respiration Rate 16 Blood Gas Low PEEP Setting 8.0 Blood Gas Modality VENT - AC Blood Gas Notified Time 06/16/2016 6:30:41 PM Blood Gas Notified Whom DT Blood Gas Respiration Rate 16.0 Blood Gas Specimen Source BLMV Blood Gas Temperature 37.0 Blood Gas Tidal Volume 600.0 FiO2 100.0 Mixed Venous Bld Carboxyhemoglobin 0.3 Mixed Venous Blood Methemoglobin 0.5 Mixed Venous Blood O2 Saturation 78.4 H Mixed Venous Blood Oxyhemoglobin 77.8 Mixed Venous Blood PO2 47.1 H Mixed Venous Blood Total Hemoglobin 15.2 Bedside Glucose 130 144 Urine Amphetamines Screen POSITIVE Urine Barbiturates NEGATIVE Urine Benzodiazepines Screen POSITIVE Urine Cannabinoids NEGATIVE Urine Cocaine Screen NEGATIVE Urine Opiates Screen NEGATIVE Test 06/16/16 21:54 06/16/16 22:36 06/16/16 22:53 06/17/16 01:14 Bedside Glucose 136 139 120 Creatine Kinase 2720 #H Creatine Kinase Index 8.2 Creatinine Kinase MB (Mass) 224.00 H Magnesium Level 2.3 Potassium Level 3.9 Troponin I 91.000 *H Test 06/17/16 03:53 06/17/16 04:20 06/17/16 05:00 06/17/16 05:59 Bedside Glucose 106 129 Activated Partial Thromboplast Time 30.5 Anion Gap 11 # Basophils # 0.0 Basophils % 0.1 Blood Urea Nitrogen 14 Calcium Level 7.8 L Carbon Dioxide Level 27 Chloride Level 110 Creatinine 1.14 Eosinophils # 0.0 Eosinophils % 0.1 Glucose Level 137 # Hematocrit 41.3 L Hemoglobin 13.9 L INR International Normalized Ratio 1.16 Lymphocytes # 1.9 Lymphocytes % 11.0 L Magnesium Level 2.0 Mean Corpuscular Hemoglobin 29.7 Mean Corpuscular Hemoglobin Concent 33.6 Mean Corpuscular Volume 88.4 Mean Platelet Volume 8.8 Monocytes # 1.8 H Monocytes % 10.9 Neutrophils # 13.2 H Neutrophils % 77.9 H Nucleated Red Blood Cells # 0.0 Nucleated Red Blood Cells % 0.0 Platelet Count 258 Potassium Level 4.9 Prothrombin Time 14.8 H Prothrombin Time Ratio 1.2 Red Blood Count 4.67 L Red Cell Distribution Width 13.8 Sodium Level 143 White Blood Count 16.9 #H Arterial Blood HCO3 23.5 Arterial Blood Base Excess 0.1 Arterial Blood Oxygen Saturation 98.8 H Kyle Test N/A Arterial Blood Gas Puncture Site A-Line Arterial Blood Carboxyhemoglobin 0.3 Arterial Blood Date Drawn 06/17/2016 4:48:07 AM Arterial Blood Methemoglobin 0.5 Arterial Blood pCO2 (Temp correct) 34.3 L Arterial Blood pH (Temp corrected) 7.453 H Arterial Blood pO2 (Temp corrected) 145.4 H Blood Gas A-a O2 Differential 244.7 H Blood Gas Actual Respiration Rate 20 Blood Gas Inspiratory Pressure 26.0 Blood Gas Low PEEP Setting 8.0 Blood Gas Modality VENT - AC Blood Gas Notified Time 06/17/2016 4:56:11 AM Blood Gas Notified Whom KM Blood Gas Respiration Rate 20.0 Blood Gas Specimen Source Blood arterial Blood Gas Temperature 37.0 Blood Gas Tidal Volume 600.0 FiO2 60.0 Oxyhemoglobin Percent 98.0 Total Hemoglobin 14.6 Test 06/17/16 08:05 06/17/16 09:26 Bedside Glucose 145 114 Medications Medications Current Medications Potassium Chloride 40 meq/ Calcium Chloride 1 gm/Dextrose/ Sodium Chloride 1, 030 ml @ 60 mls/hr [id number] IV Last administered on 06/16/16 19:47; Admin Dose 60 MLS/HR; Start 06/16/16 at 17:12 Cefazolin Sodium (Ancef 1 Gm/50 ml (Pmx)) 50 ml @ 100 mls/hr Q8H IVPB Last administered on 06/17/16 01:17; Admin Dose 100 MLS/HR; Start 06/16/16 at 17:30 ; Stop 06/17/16 at 09:59 Hydromorphone HCl (Dilaudid) 0.2 mg Q15M PRN IV PAIN LEVEL 1-5; Start 06/16/16 at 17:30 Hydromorphone HCl (Dilaudid) 0.4 mg Q15M PRN IV PAIN LEVEL 6-10 Last administered on 06/17/16 02:28; Admin Dose 0.4 MG; Start 06/16/16 at 17:30 Oxycodone/ Acetaminophen (Percocet (5/ 325)) 1 tab Q3H PRN PO PAIN LEVEL 1-5; Start 06/16/16 at 17:30 Oxycodone/ Acetaminophen (Percocet (5/ 325)) 2 tab Q3H PRN PO PAIN LEVEL 6-10; Start 06/16/16 at 17:30 Ondansetron HCl (Zofran Inj) 4 mg Q6H PRN IV NAUSEA AND/OR VOMITING; Start at 17:30 Famotidine (Pepcid Iv) 20 mg BID@08,20 IV Last administered on 06/17/16 08:16 ; Admin Dose 20 MG; Start 06/16/16 at 20:00 Acetaminophen 650 mg 650 mg Q3H PRN PO ELEVATED TEMPERATURE; Start 06/16/16 at 17:30 Magnesium Sulfate/ Dextrose (Magnesium Sulfate 1 Gm/D5W) 100 ml @ 100 mls/hr PRN PRN IVPB PENDING LAB VALUE Last administered on 06/16/16 21:31; Admin Dose 100 MLS/HR; Start 06/16/16 at 17:30 Diagnostic Test (Pha) (Accucheck) 1 ea Q1H XX Last administered on 06/17/16 09 :28; Admin Dose 1 EA; Start 06/16/16 at 17:30 Dextrose (D50w Syringe) 25 ml Q15M PRN IV Till BS 80 mg/dL or above x2; Start 06/16/16 at 17:30 Dextrose 50 ml 50 ml Q15M PRN IV Till BS 80 mg/dL or above x2; Start 06/16/16 at 17:30 Propofol (Diprivan) 100 ml @ 3.273 mls/ hr Q12H IV Last administered on 02:32; Admin Dose 13 MLS/HR; Start 06/16/16 at 17:30 Docusate Sodium 100 mg 100 mg BID PO ; Start 06/16/16 at 21:00 Levetiracetam 500 mg/Sodium Chloride 105 ml @ 420 mls/hr Q12 IVPB Last administered on 06/16/16 21:41; Admin Dose 420 MLS/HR; Start 06/16/16 at 21:00 Norepinephrine/ Dextrose (Levophed/D5W) 500 ml @ 1.87 mls/hr TITRATE IV Last administered on 06/17/16 02:40; Admin Dose 15 MLS/HR; Start 06/17/16 at 04:00 Acetaminophen (Tylenol Supp) 650 mg Q6H PRN [place] FEVER Last administered on 22:26; Admin Dose 650 MG; Start 06/16/16 at 22:00 Atorvastatin Calcium (Lipitor) 80 mg HS NGT ; Start 06/17/16 at 21:00 Aspirin (Aspirin) 81 mg DAILY NGT ; Start 06/17/16 at 09:00 Clopidogrel Bisulfate (plaVIX) 75 mg DAILY NGT ; Start 06/17/16 at 09:00 Metoprolol Tartrate (Lopressor) 25 mg BID NGT ; Start 06/17/16 at 09:00 RICKY MAS Jun 17, 2016 09:43
[2016-06-17] MEDS: CLOPIDOGREL 75 MG TAB NGT SCH (09:59)
[2016-06-17] MEDS: ASPIRIN 81 MG TAB NGT SCH (09:59)
[2016-06-17] MEDS: DOCUSATE SODIUM 100 MG CAP PO SCH ×2 (09:59→21:51)
[2016-06-17] MEDS: LEVETIRACETAM IV 500 MG in SOD CHLORIDE 0.9% 100 ML IVPB SCH ×2 (10:32→20:39)
[2016-06-17] MEDS: MIDAZOLAM (DRIP) 50 mg/50 mL 50 ML IV SCH ×2 (12:11→22:16)
[2016-06-17] MEDS ORDERED: VANCOMYCIN IV PER PHARMACY XX SCH (14:30)
--- NOTE | 2016-06-17 14:37 | PN ---
Date/Time of Note Date/Time of Note DATE: 06/17/16 TIME: 14:24 Assessment/Plan VTE Prophylaxis VTE Prophylaxis Intervention: SCD's Lines/Catheters IV Catheter Type (from [facility]): [place] Urinary Cath still in place: Yes Reason Cath still needed: other (indicate) Assessment/Plan Assessment/Plan A 61-year-old male managed as follows: 1. Severe Coronary artery disease, status post inferior wall ST elevation myocardial infarction that was not amenable to angiographic repair, status post emergent coronary artery bypass surgery, 4-vessel repair. 2. Acute respiratory failure, now ventilator dependent secondary to #2. 3. Status post Vfib arrest x2 with return of spontaneous circulation both times. 4. 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 5. History of vertigo. 6. Obesity. 7. Methamphetamine user 8. Severe SIRS versus Sepsis r/o Aspiration Pneumonia 9. Shock likely Cardiogenic r/o Septic PLAN: * Forman cultures / commence empiric broad spectrum abx * Continue Vent mgt / Sedation / appreciate pulm input * Continue Pressor support / balloon pump per cardio * Continue to follow cardiology and Cardiothoracic surgical recs / Appreciate aggressive and prompt mgt * Monitor closely for Hypoxic brain injury * Closely monitor electrolytes as well as renal and hepatic function PROPHYLAXIS: SCDs / IV PPI Prognosis : extremely Guarded Subjective 24 Hr Interval Summary Free Text/Dictation Patient seen and examined. remains on dual pressor support + balloon pump Exam/Review of Systems Vital Signs Vitals Vital Signs Date Time Temp Pulse Resp B/P Pulse Ox O2 Delivery O2 Flow Rate FiO2 06/17/16 13:00 101.5 100 22 96/51 98 06/17/16 12:00 Bag Valve Mask 06/17/16 11:50 40 06/16/16 11:06 2 Intake and Output 06/16/16 06/16/16 06/17/16 15:00 23:00 07:00 Intake Total 2558.4 ml 1016.1 ml Output Total 4955 ml 964 ml Balance -2396.6 ml 52.1 ml Exam Constitutional: obese Head: normocephalic ENMT: intubated Respiratory: diminished breath sounds Cardiovascular: No murmurs/extra sounds, No regular rate and rhythm Gastrointestinal: bowel sounds, soft Extremities: edema (trace) Neurological: other (sedated) Results Result Diagram: 2/22/17 0420 2/22/17 0420 Results 24 hrs Laboratory Tests Test 06/16/16 17:12 06/16/16 17:45 06/16/16 17:51 06/16/16 18:11 Arterial Blood HCO3 23.8 Arterial Blood Base Excess -3.7 L Arterial Blood Oxygen Saturation 97.1 Kyle Test N/A N/A Arterial Blood Gas Puncture Site A-Line VENOUS LINE Arterial Blood Carboxyhemoglobin 0.3 Arterial Blood Date Drawn 06/16/2016 6:10:04 PM 06/16/2016 6:15:59 PM Arterial Blood Methemoglobin 0.6 Arterial Blood pCO2 (Temp correct) 52.4 H Arterial Blood pH (Temp corrected) 7.275 *L Arterial Blood pO2 (Temp corrected) 106.6 H Blood Gas A-a O2 Differential 554.0 H Blood Gas Actual Respiration Rate 16 16 Blood Gas Critical Value Read Back L ANTOLIN RN Blood Gas Low PEEP Setting 8.0 8.0 Blood Gas Modality VENT - AC VENT - AC Blood Gas Notified Time 06/16/2016 6:28:21 PM 06/16/2016 6:30:41 PM Blood Gas Notified Whom DT DT Blood Gas Respiration Rate 16.0 16.0 Blood Gas Specimen Source Blood arterial BLMV Blood Gas Temperature 37.0 37.0 Blood Gas Tidal Volume 600.0 600.0 FiO2 100.0 100.0 Oxyhemoglobin Percent 96.2 Total Hemoglobin 15.2 Activated Partial Thromboplast Time 39.0 H Anion Gap 19 H Band Neutrophils % 2.0 Blood Urea Nitrogen 17 Calcium Level 7.4 L Carbon Dioxide Level 25 Chloride Level 105 Creatine Kinase 1445 H Creatine Kinase Index 14.0 Creatinine 1.14 Creatinine Kinase MB (Mass) 202.00 H Differential Comment Glucose Level 200 Hematocrit 42.1 Hemoglobin 14.0 INR International Normalized Ratio 1.25 Lymphocytes # 2.9 Lymphocytes % 8.0 L Magnesium Level 1.6 L Mean Corpuscular Hemoglobin 29.6 Mean Corpuscular Hemoglobin Concent 33.3 Mean Corpuscular Volume 89.0 Mean Platelet Volume 9.2 Monocytes # 3.2 H Monocytes % 9.0 Neutrophils # 29.0 H Neutrophils % 81.0 H Platelet Count 284 Potassium Level 3.6 Prothrombin Time 15.8 #H Prothrombin Time Ratio 1.2 Red Blood Count 4.73 Red Cell Distribution Width 14.1 Sodium Level 145 H Troponin I 40.700 *H White Blood Count 35.8 #H Bedside Glucose 176 Mixed Venous Bld Carboxyhemoglobin 0.3 Mixed Venous Blood Methemoglobin 0.5 Mixed Venous Blood O2 Saturation 78.4 H Mixed Venous Blood Oxyhemoglobin 77.8 Mixed Venous Blood PO2 47.1 H Mixed Venous Blood Total Hemoglobin 15.2 Test 06/16/16 19:50 06/16/16 21:04 06/16/16 21:30 06/16/16 21:54 Bedside Glucose 130 144 136 Urine Amphetamines Screen POSITIVE Urine Barbiturates NEGATIVE Urine Benzodiazepines Screen POSITIVE Urine Cannabinoids NEGATIVE Urine Cocaine Screen NEGATIVE Urine Opiates Screen NEGATIVE Test 06/16/16 22:36 06/16/16 22:53 06/17/16 01:14 06/17/16 03:53 Creatine Kinase 2720 #H Creatine Kinase Index 8.2 Creatinine Kinase MB (Mass) 224.00 H Magnesium Level 2.3 Potassium Level 3.9 Troponin I 91.000 *H Bedside Glucose 139 120 106 Test 06/17/16 04:20 06/17/16 05:00 06/17/16 05:59 06/17/16 08:05 Activated Partial Thromboplast Time 30.5 Anion Gap 11 # Basophils # 0.0 Basophils % 0.1 Blood Urea Nitrogen 14 Calcium Level 7.8 L Carbon Dioxide Level 27 Chloride Level 110 Creatinine 1.14 Eosinophils # 0.0 Eosinophils % 0.1 Glucose Level 137 # Hematocrit 41.3 L Hemoglobin 13.9 L INR International Normalized Ratio 1.16 Lymphocytes # 1.9 Lymphocytes % 11.0 L Magnesium Level 2.0 Mean Corpuscular Hemoglobin 29.7 Mean Corpuscular Hemoglobin Concent 33.6 Mean Corpuscular Volume 88.4 Mean Platelet Volume 8.8 Monocytes # 1.8 H Monocytes % 10.9 Neutrophils # 13.2 H Neutrophils % 77.9 H Nucleated Red Blood Cells # 0.0 Nucleated Red Blood Cells % 0.0 Platelet Count 258 Potassium Level 4.9 Prothrombin Time 14.8 H Prothrombin Time Ratio 1.2 Red Blood Count 4.67 L Red Cell Distribution Width 13.8 Sodium Level 143 White Blood Count 16.9 #H Arterial Blood HCO3 23.5 Arterial Blood Base Excess 0.1 Arterial Blood Oxygen Saturation 98.8 H Kyle Test N/A Arterial Blood Gas Puncture Site A-Line Arterial Blood Carboxyhemoglobin 0.3 Arterial Blood Date Drawn 06/17/2016 4:48:07 AM Arterial Blood Methemoglobin 0.5 Arterial Blood pCO2 (Temp correct) 34.3 L Arterial Blood pH (Temp corrected) 7.453 H Arterial Blood pO2 (Temp corrected) 145.4 H Blood Gas A-a O2 Differential 244.7 H Blood Gas Actual Respiration Rate 20 Blood Gas Inspiratory Pressure 26.0 Blood Gas Low PEEP Setting 8.0 Blood Gas Modality VENT - AC Blood Gas Notified Time 06/17/2016 4:56:11 AM Blood Gas Notified Whom KM Blood Gas Respiration Rate 20.0 Blood Gas Specimen Source Blood arterial Blood Gas Temperature 37.0 Blood Gas Tidal Volume 600.0 FiO2 60.0 Oxyhemoglobin Percent 98.0 Total Hemoglobin 14.6 Bedside Glucose 129 145 Test 06/17/16 09:26 06/17/16 10:30 06/17/16 10:55 06/17/16 12:02 Bedside Glucose 114 119 126 121 Test 06/17/16 13:00 06/17/16 13:55 Bedside Glucose 105 131 Medications Medications Current Medications Potassium Chloride/Calcium Chloride/Dextrose/ Sodium Chloride (KCl/Ca Chloride/ D5-1/4ns) 1,030 ml @ 60 mls/hr [id number] IV Last administered on 06/16/16 19:47 ; Admin Dose 60 MLS/HR; Start 06/16/16 at 17:12 Hydromorphone HCl (Dilaudid) 0.2 mg Q15M PRN IV PAIN LEVEL 1-5 Last administered on 06/17/16 14:18; Admin Dose 0.2 MG; Start 06/16/16 at 17:30 Hydromorphone HCl (Dilaudid) 0.4 mg Q15M PRN IV PAIN LEVEL 6-10 Last administered on 06/17/16 02:28; Admin Dose 0.4 MG; Start 06/16/16 at 17:30 Oxycodone/ Acetaminophen (Percocet (5/ 325)) 1 tab Q3H PRN PO PAIN LEVEL 1-5; Start 06/16/16 at 17:30 Oxycodone/ Acetaminophen (Percocet (5/ 325)) 2 tab Q3H PRN PO PAIN LEVEL 6-10; Start 06/16/16 at 17:30 Ondansetron HCl (Zofran Inj) 4 mg Q6H PRN IV NAUSEA AND/OR VOMITING; Start at 17:30 Famotidine (Pepcid Iv) 20 mg BID@08,20 IV Last administered on 06/17/16 08:16 ; Admin Dose 20 MG; Start 06/16/16 at 20:00 Acetaminophen 650 mg 650 mg Q3H PRN PO ELEVATED TEMPERATURE; Start 06/16/16 at 17:30 Magnesium Sulfate/ Dextrose (Magnesium Sulfate 1 Gm/D5W) 100 ml @ 100 mls/hr PRN PRN IVPB PENDING LAB VALUE Last administered on 06/16/16 21:31; Admin Dose 100 MLS/HR; Start 06/16/16 at 17:30 Diagnostic Test (Pha) (Accucheck) 1 ea Q1H XX Last administered on 06/17/16 13 :03; Admin Dose 1 EA; Start 06/16/16 at 17:30 Dextrose (D50w Syringe) 25 ml Q15M PRN IV Till BS 80 mg/dL or above x2; Start 06/16/16 at 17:30 Dextrose 50 ml 50 ml Q15M PRN IV Till BS 80 mg/dL or above x2; Start 06/16/16 at 17:30 Propofol (Diprivan) 100 ml @ 3.273 mls/ hr Q12H IV Last administered on 10:06; Admin Dose 26.184 MLS/HR; Start 06/16/16 at 17:30 Docusate Sodium 100 mg 100 mg BID PO Last administered on 06/17/16 09:59; Admin Dose 100 MG; Start 06/16/16 at 21:00 Levetiracetam 500 mg/Sodium Chloride 105 ml @ 420 mls/hr Q12 IVPB Last administered on 06/17/16 10:32; Admin Dose 420 MLS/HR; Start 06/16/16 at 21:00 Norepinephrine/ Dextrose (Levophed/D5W) 500 ml @ 1.87 mls/hr TITRATE IV Last administered on 06/17/16 02:40; Admin Dose 15 MLS/HR; Start 06/17/16 at 04:00 Acetaminophen (Tylenol Supp) 650 mg Q6H PRN ID FEVER Last administered on 22:26; Admin Dose 650 MG; Start 06/16/16 at 22:00 Atorvastatin Calcium (Lipitor) 80 mg HS NGT ; Start 06/17/16 at 21:00 Aspirin (Aspirin) 81 mg DAILY NGT Last administered on 06/17/16 09:59; Admin Dose 81 MG; Start 06/17/16 at 09:00 Clopidogrel Bisulfate (plaVIX) 75 mg DAILY NGT Last administered on 06/17/16 09:59; Admin Dose 75 MG; Start 06/17/16 at 09:00 Metoprolol Tartrate 25 mg 25 mg BID NGT ; Start 06/17/16 at 09:00 Midazolam HCl (Versed) 50 ml @ 1 mls/hr TITRATE IV Last administered on 12:11; Admin Dose 1 MLS/HR; Start 06/17/16 at 10:30 Procedures Procedures PROCEDURE: XR, Chest. CLINICAL INDICATION: Follow up for respiratory distress/postop follow-up for open heart surgery. TECHNIQUE: AP chest. COMPARISON: Chest, 06/16/2016. FINDINGS: The heart is not enlarged. There is no acute infiltrate in the lungs. The lungs are well expanded. No pleural effusion. The ET tube, right [place]-Brent catheter and mediastinal drain remain in good position. IMPRESSION: 1. Unremarkable postop x-ray. RPTAT: GG .Mark Hunter MD, MD Date Time Electronically viewed and signed by .Mark Hunter MD, MD on 06/17/2016 06:48 .Y/ CC: TITA CIFUENTES MD, BOLATITO M. Jun 17, 2016 14:36
[2016-06-17] MEDS: CEFEPIME 1GM/50 ML (PMX) 50 ML IVPB SCH ×2 (15:04→20:40)
[2016-06-17] MEDS: VANCOMYCIN 1.5 GM in SOD CHLORIDE 0.9% 250 ML IVPB SCH (15:07)
[2016-06-17] MEDS: SOD CHLORIDE 0.9% 1,000 ML IV SCH (15:12)
--- NOTE | 2016-06-17 15:29 | RADRPT ---
Vent Rate: 98 bpm RR Interval: 0 msec PA Interval: 156 msec QRS Duration: 86 msec QT Interval: 384 msec QTC Interval: 490 msec P-R-T [place]: 47 - 64 - 65 degrees Normal sinus rhythm Possible Inferior infarct , age undetermined Abnormal ECG Electronically Signed By: Chapo White [id number]
--- NOTE | 2016-06-17 15:57 | RADRPT ---
Vent Rate: 120 bpm RR Interval: 0 msec LA Interval: 154 msec QRS Duration: 132 msec QT Interval: 376 msec QTC Interval: 531 msec P-R-T [place]: 84 - 0 - 49 degrees Sinus tachycardia Right bundle branch block Inferior infarct , age undetermined Abnormal ECG Electronically Signed By: Chapo White [id number]
--- NOTE | 2016-06-17 15:58 | RADRPT ---
Vent Rate: 96 bpm RR Interval: 0 msec [place] Interval: 158 msec QRS Duration: 124 msec QT Interval: 438 msec QTC Interval: 553 msec P-R-T [place]: 58 - -58 - 48 degrees Sinus rhythm with premature atrial complexes with aberrant conduction Left axis deviation Right bundle branch block Inferior infarct , age undetermined Abnormal ECG Electronically Signed By: Chapo White [id number]
--- NOTE | 2016-06-17 15:59 | RADRPT ---
Vent Rate: 95 bpm RR Interval: 0 msec [place] Interval: 160 msec QRS Duration: 118 msec QT Interval: 420 msec QTC Interval: 527 msec P-R-T [place]: 60 - -74 - 70 degrees Sinus rhythm with premature supraventricular complexes Left axis deviation Right bundle branch block Inferior infarct , possibly acute ACUTE [place] Abnormal ECG Electronically Signed By: Chapo White [id number]
[2016-06-17] MEDS: ACETAMINOPHEN 325 MG TAB PO PRN (16:18)
[2016-06-17 19:28] LABS: ALBUMIN 2.6 g/dl (3.3-4.9)
[2016-06-17 19:29] LABS: POTASSIUM 4.4 mmol/L (3.5-5.1)
[2016-06-17 19:31] LABS: ALBUMIN/GLOBULIN RATIO 0.89; BILIRUBIN,INDIRECT 0.5 mg/dl (0-1.1); BILIRUBIN,TOTAL 0.5 mg/dl (0.2-1.3); CREATININE 0.97 mg/dl (0.61-1.24); TOTAL PROTEIN 5.5 g/dl (6.1-8.1)
[2016-06-17 19:32] LABS: CALCIUM 7.8 mg/dl (8.4-10.2); MAGNESIUM 1.7 mg/dl (1.7-2.5)
[2016-06-17] MEDS: MAGNESIUM SULFATE 1 GM/D5W 100 ML IVPB PRN (19:38)
[2016-06-17] MEDS: ACETAMINOPHEN 650 MG SUPP PR PRN (19:49)
[2016-06-17] MEDS: ATORVASTATIN 80 MG TAB NGT SCH (21:55)
[2016-06-17] MEDS ORDERED: DIGOXIN IMMUNE FAB (OVINE) 0.5 VIAL in SOD CHLORIDE 0.9% 50 ML IVPB ONE (22:30)
[2016-06-17] MEDS ORDERED: SOD CHLORIDE 0.9% 500 ML IV ONE (22:30)
[2016-06-17] MEDS ORDERED: DIGOXIN 500 MCG INJ IV ONE (23:00)
[2016-06-18] VITALS (96 sets, daily range): BP systolic 86–134; BP diastolic 38–63; PULSE 73–153; RESP 20–26; TEMP 99.7–100.9; Ht 185.4 cm; Wt 109.1 kg
[2016-06-18 00:02] LABS: POTASSIUM 4.4 mmol/L (3.5-5.1)
[2016-06-18 00:05] LABS: MAGNESIUM 2.1 mg/dl (1.7-2.5)
[2016-06-18] MEDS: ACCUCHECK XX SCH ×24 (00:30→23:30)
[2016-06-18] MEDS ORDERED: SOD CHLORIDE 0.9% 500 ML IV ONE (01:30)
[2016-06-18] MEDS: PROPOFOL 100 ML IV SCH ×3 (01:50→21:43)
[2016-06-18] MEDS ORDERED: AMIODARONE 200 MG TAB NGT SCH (02:00)
[2016-06-18] MEDS: SOD CHLORIDE 0.9% 1,000 ML IV SCH ×3 (03:24→21:41)
[2016-06-18] MEDS: VANCOMYCIN 1.5 GM in SOD CHLORIDE 0.9% 250 ML IVPB SCH ×2 (03:24→17:35)
[2016-06-18] MEDS: HYDROmorphONE 1 MG/ML SYG IV PRN (04:35)
[2016-06-18] MEDS ORDERED: AMIODARONE DRIP 1 MG/MIN X 6 HRS, THEN 0.5 MG/MIN X 18 HRS THEN DC IV SCH (05:00)
[2016-06-18 05:03] LABS: BASOPHILS % 0.1 % (0.0-2.0); EOSINOPHILS # 0.3 10^3/ul (0.0-0.5); EOSINOPHILS % 1.4 % (0.0-7.0); HEMATOCRIT 33.5 % (42.0-52.0); HEMOGLOBIN 11.1 g/dl (14.0-18.0); LYMPHOCYTES # 1.8 10^3/ul (0.8-2.9); LYMPHOCYTES % 8.7 % (15.0-51.0); MEAN CORPUSCULAR HEMOGLOBIN 29.6 pg (29.0-33.0); MEAN CORPUSCULAR HGB CONC 33.2 g/dl (32.0-37.0); MEAN CORPUSCULAR VOLUME 89.2 fl (82.0-101.0); MEAN PLATELET VOLUME 9.3 fl (7.4-10.4); MONOCYTE # 1.9 10^3/ul (0.3-0.9); MONOCYTES % 9.5 % (0.0-11.0); NEUTROPHIL # 16.2 10^3/ul (1.6-7.5); NEUTROPHILS % 80.3 % (39.0-77.0); PLATELET COUNT 151 10^3/UL (140-440); RED BLOOD COUNT 3.76 10^6/ul (4.70-6.10); RED CELL DISTRIBUTION WIDTH 14.4 % (11.5-14.5); UNCORRECTED WBC 20.1 10^3/ul (4.8-10.8); WHITE BLOOD COUNT 20.1 10^3/ul (4.8-10.8)
[2016-06-18 05:05] LABS: CONDITION 1; LH ANALYZER COMMENTS 1
[2016-06-18 05:12] LABS: ALBUMIN 2.4 g/dl (3.3-4.9)
[2016-06-18 05:15] LABS: BILIRUBIN,INDIRECT 0.7 mg/dl (0-1.1); BILIRUBIN,TOTAL 0.7 mg/dl (0.2-1.3); PHOSPHORUS 3.1 mg/dl (2.5-4.9); TOTAL PROTEIN 4.9 g/dl (6.1-8.1)
[2016-06-18 05:16] LABS: INR 1.39; MAGNESIUM 2.1 mg/dl (1.7-2.5); PROTIME 17.1 Sec (12.2-14.2); PT RATIO 1.3
[2016-06-18 05:17] LABS: PARTIAL THROMBOPLASTIN TIME 38.8 Sec (25.0-35.0)
--- NOTE | 2016-06-18 08:01 | RADRPT ---
PROCEDURE: XR Chest. CLINICAL INDICATION: Dyspnea TECHNIQUE: Single frontal chest x-ray. COMPARISON: 06/17/2016 FINDINGS: Increased vascular congestion and volume overload is seen consistent with mild pulmonary edema. Hea rt size is enlarged. Postsurgical changes are seen with median sternotomy wires. Endotracheal tube and nasogastric tube are in good location. [place]-Brent catheter is seen with the tip in the main pul monary trunk. There is a intra-aortic balloon pump with the tip in the region of the mid descending aorta. Increased atelectasis in the left lung base is identified. Transcutaneous pacer pad is seen overlapping the right upper chest. No pneumothorax is seen. The surrounding osseous structures ar e notable for benign chronic senescent changes. IMPRESSION: 1. Lines and tubes are all in good position, as detailed above. 2. No evidence for pneumothorax. 3. Cardiomegaly with mild vascular congestion and volume overload. 4. Increased atelectasis in the left lower lung. 5. Similar appearances since the prior study. RPTAT: HMJB .Magdaleno Sevilla MD, Date Time Electronically viewed and signed by .Magdaleno Sevilla MD, on 06/18/2016 08:01 .B/
[2016-06-18] MEDS: FAMOTIDINE 20 MG INJ IV SCH ×2 (08:36→20:23)
[2016-06-18] MEDS: ASPIRIN 81 MG TAB NGT SCH (08:37)
[2016-06-18] MEDS: DOCUSATE SODIUM 100 MG CAP PO SCH ×2 (08:37→21:00)
[2016-06-18] MEDS: CLOPIDOGREL 75 MG TAB NGT SCH (08:38)
[2016-06-18] MEDS: LEVETIRACETAM IV 500 MG in SOD CHLORIDE 0.9% 100 ML IVPB SCH ×2 (08:39→21:06)
--- NOTE | 2016-06-18 09:05 | PN ---
Date/Time of Note Date/Time of Note DATE: 06/18/16 TIME: 08:57 Assessment/Plan VTE Prophylaxis VTE Prophylaxis Intervention: SCD's Lines/Catheters IV [facility]from [facility] [place] Urinary Cath still in place: Yes Reason Cath still needed: other (indicate) Assessment/Plan Assessment/Plan A 61-year-old male managed as follows: 1. Severe Coronary artery disease, status post inferior wall ST elevation myocardial infarction that was not amenable to angiographic repair, status post emergent coronary artery bypass surgery, 4-vessel repair. 2. Acute respiratory failure, now ventilator dependent secondary to #2. 3. Status post Vfib arrest x2 with return of spontaneous circulation both times. 4. 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 5. History of vertigo. 6. Obesity. 7. Methamphetamine user 8. Severe SIRS versus Sepsis * ?Developing LLL pneumonia on CXR 9. Shock likely Cardiogenic r/o Septic 10. Severe Rhabdomyolysis PLAN: * F/u Forman cultures /Continue empiric broad spectrum abx / ID consult * Continue Vent mgt / Sedation / appreciate pulm input * Continue Pressor support / balloon pump per cardio * Continue to follow cardiology and Cardiothoracic surgical recs / Appreciate aggressive and prompt mgt * Monitor closely for Hypoxic brain injury * Closely monitor electrolytes as well as renal and hepatic function PROPHYLAXIS: SCDs / IV PPI Prognosis : extremely Guarded Subjective 24 Hr Interval Summary Free Text/Dictation Remains intubated and on pressor support Nursing reports no acute overnight events. now requiring restraints which is a good sign Exam/Review of Systems Vital Signs Vitals Vital Signs Date Time Temp Pulse Resp B/P Pulse Ox O2 Delivery O2 Flow Rate FiO2 06/18/16 07:45 118 22 122/56 06/18/16 07:00 100.3 100 06/18/16 05:02 40 06/18/16 04:15 Bag Valve Mask 06/16/16 11:06 2 Intake and Output 06/17/16 06/17/16 06/18/16 15:00 23:00 07:00 Intake Total 998.4 ml 1403.7 ml 1730.0 ml Output Total 993 ml 985 ml 620 ml Balance 5.4 ml 418.7 ml 1110.0 ml Exam Constitutional: obese Head: normocephalic ENMT: intubated Respiratory: diminished breath sounds Cardiovascular: No murmurs/extra sounds, No regular rate and rhythm Gastrointestinal: bowel sounds, soft Extremities: edema (trace) Neurological: other (sedated) Results Result Diagram: 06/18/16 0330 06/17/16 2345 Results 24 hrs Laboratory Tests Test 06/17/16 09:26 06/17/16 10:30 06/17/16 10:55 06/17/16 12:02 Bedside Glucose 114 119 126 121 Test 06/17/16 13:00 06/17/16 13:55 06/17/16 15:22 06/17/16 16:26 Bedside Glucose 105 131 116 Alanine Aminotransferase (ALT/SGPT) 55 Albumin 2.6 L Albumin/Globulin Ratio 0.89 Alkaline Phosphatase 47 Anion Gap 10 Aspartate Amino Transf (AST/SGOT) 209 H Blood Urea Nitrogen 11 Calcium Level 7.8 L Carbon Dioxide Level 26 Chloride Level 107 Creatinine 0.97 Creatinine Kinase MB (Mass) 33.50 H Direct Bilirubin 0.00 Globulin 2.90 Glucose Level 126 Hematocrit 35.4 L Indirect Bilirubin 0.5 Magnesium Level 1.7 Potassium Level 4.4 Sodium Level 139 Total Bilirubin 0.5 Total Protein 5.5 L Test 06/17/16 16:28 06/17/16 17:36 06/17/16 18:05 06/17/16 19:08 Bedside Glucose 121 115 113 102 Test 06/17/16 22:55 06/17/16 23:45 06/18/16 02:14 06/18/16 03:30 Bedside Glucose 127 106 Magnesium Level 2.1 2.1 Potassium Level 4.4 Activated Partial Thromboplast Time 38.8 H Alanine Aminotransferase (ALT/SGPT) 48 Albumin 2.4 L Alkaline Phosphatase 46 Aspartate Amino Transf (AST/SGOT) 147 H Basophils # 0.0 Basophils % 0.1 Direct Bilirubin 0.00 Eosinophils # 0.3 Eosinophils % 1.4 Hematocrit 33.5 L Hemoglobin 11.1 #L Hemoglobin A1c 5.5 INR International Normalized Ratio 1.39 Indirect Bilirubin 0.7 Lymphocytes # 1.8 Lymphocytes % 8.7 L Mean Corpuscular Hemoglobin 29.6 Mean Corpuscular Hemoglobin Concent 33.2 Mean Corpuscular Volume 89.2 Mean Platelet Volume 9.3 Monocytes # 1.9 H Monocytes % 9.5 Neutrophils # 16.2 H Neutrophils % 80.3 H Nucleated Red Blood Cells # 0.0 Nucleated Red Blood Cells % 0.0 Phosphorus Level 3.1 Platelet Count 151 # Prothrombin Time 17.1 H Prothrombin Time Ratio 1.3 Red Blood Count 3.76 L Red Cell Distribution Width 14.4 Total Bilirubin 0.7 Total Protein 4.9 L White Blood Count 20.1 H Test 06/18/16 06:43 Bedside Glucose 92 Medications Medications Current Medications Hydromorphone HCl (Dilaudid) 0.2 mg Q15M PRN IV PAIN LEVEL 1-5 Last administered on 06/17/16 14:18; Admin Dose 0.2 MG; Start 06/16/16 at 17:30 Hydromorphone HCl (Dilaudid) 0.4 mg Q15M PRN IV PAIN LEVEL 6-10 Last administered on 06/18/16 04:35; Admin Dose 0.4 MG; Start 06/16/16 at 17:30 Oxycodone/ Acetaminophen (Percocet (5/ 325)) 1 tab Q3H PRN PO PAIN LEVEL 1-5; Start 06/16/16 at 17:30 Oxycodone/ Acetaminophen (Percocet (5/ 325)) 2 tab Q3H PRN PO PAIN LEVEL 6-10; Start 06/16/16 at 17:30 Ondansetron HCl (Zofran Inj) 4 mg Q6H PRN IV NAUSEA AND/OR VOMITING; Start at 17:30 Famotidine (Pepcid Iv) 20 mg BID@08,20 IV Last administered on 06/18/16 08:36 ; Admin Dose 20 MG; Start 06/16/16 at 20:00 Acetaminophen 650 mg 650 mg Q3H PRN PO ELEVATED TEMPERATURE Last administered on 06/17/16 16:18; Admin Dose 650 MG; Start 06/16/16 at 17:30 Magnesium Sulfate/ Dextrose (Magnesium Sulfate 1 Gm/D5W) 100 ml @ 100 mls/hr PRN PRN IVPB PENDING LAB VALUE Last administered on 06/17/16 19:38; Admin Dose 100 MLS/HR; Start 06/16/16 at 17:30 Diagnostic Test (Pha) (Accucheck) 1 ea Q1H XX Last administered on 06/18/16 06 :44; Admin Dose 1 EA; Start 06/16/16 at 17:30 Dextrose (D50w Syringe) 25 ml Q15M PRN IV Till BS 80 mg/dL or above x2; Start 06/16/16 at 17:30 Dextrose 50 ml 50 ml Q15M PRN IV Till BS 80 mg/dL or above x2; Start 06/16/16 at 17:30 Propofol (Diprivan) 100 ml @ 3.273 mls/ hr Q12H IV Last administered on 01:50; Admin Dose 9.8 MLS/HR; Start 06/16/16 at 17:30 Docusate Sodium 100 mg 100 mg BID PO Last administered on 06/18/16 08:37; Admin Dose 100 MG; Start 06/16/16 at 21:00 Levetiracetam 500 mg/Sodium Chloride 105 ml @ 420 mls/hr Q12 IVPB Last administered on 06/18/16 08:39; Admin Dose 420 MLS/HR; Start 06/16/16 at 21:00 Norepinephrine/ Dextrose (Levophed/D5W) 500 ml @ 1.87 mls/hr TITRATE IV Last administered on 06/18/16 01:59; Admin Dose 15 MLS/HR; Start 06/17/16 at 04:00 Acetaminophen (Tylenol Supp) [address] FEVER Last administered on 19:49; Admin Dose 650 MG; Start 06/16/16 at 22:00 Atorvastatin Calcium (Lipitor) 80 mg HS NGT Last administered on 06/17/16 21: 55; Admin Dose 80 MG; Start 06/17/16 at 21:00 Aspirin (Aspirin) 81 mg DAILY NGT Last administered on 06/18/16 08:37; Admin Dose 81 MG; Start 06/17/16 at 09:00 Clopidogrel Bisulfate (plaVIX) 75 mg DAILY NGT Last administered on 06/18/16 08:38; Admin Dose 75 MG; Start 06/17/16 at 09:00 Metoprolol Tartrate 25 mg 25 mg BID NGT Last administered on 06/17/16 21:51; Admin Dose 25 MG; Start 06/17/16 at 09:00 Midazolam HCl 50 ml @ 1 mls/hr TITRATE IV Last administered on 06/17/16 22:16 ; Admin Dose 4 MLS/HR; Start 06/17/16 at 10:30 Cefepime HCl 50 ml @ 100 mls/hr Q12 IVPB Last administered on 06/17/16 20:40 ; Admin Dose 100 MLS/HR; Start 06/17/16 at 14:30 Sodium Chloride 1,000 ml @ 80 mls/hr [id number] IV Last administered on 03:24; Admin Dose 80 MLS/HR; Start 06/17/16 at 15:00 Vancomycin HCl/ Sodium Chloride (Vancocin/NS) 250 ml @ 83.333 mls/ hr Q12H IVPB Last administered on 06/18/16 03:24; Admin Dose 83.333 MLS/HR; Start at 15:30 Amiodarone HCl 400 mg 400 mg BID NGT Last administered on 06/18/16 02:17; Admin Dose 400 MG; Start 06/18/16 at 02:00 Amiodarone HCl (Cordarone 900mg/ D5W Drip) 500 ml @ 0 mls/hr Q0M IV Last administered on 06/18/16 05:23; Admin Dose 16.3 MLS/HR; Start 06/18/16 at 05:00 ; Stop 06/19/16 at 04:59 Procedures Procedures PROCEDURE: XR Chest. CLINICAL INDICATION: Dyspnea TECHNIQUE: Single frontal chest x-ray. COMPARISON: 06/17/2016 FINDINGS: Increased vascular congestion and volume overload is seen consistent with mild pulmonary edema. Heart size is enlarged. Postsurgical changes are seen with median sternotomy wires. Endotracheal tube and nasogastric tube are in good location. [place]Brent catheter is seen with the tip in the main pulmonary trunk. There is a intra-aortic balloon pump with the tip in the region of the mid descending aorta. Increased atelectasis in the left lung base is identified. Transcutaneous pacer pad is seen overlapping the right upper chest. No pneumothorax is seen. The surrounding osseous structures are notable for benign chronic senescent changes. IMPRESSION: 1. Lines and tubes are all in good position, as detailed above. 2. No evidence for pneumothorax. 3. Cardiomegaly with mild vascular congestion and volume overload. 4. Increased atelectasis in the left lower lung. 5. Similar appearances since the prior study. RPTAT: HMJB .Magdaleno Sevilla MD, MD Date Time Electronically viewed and signed by .Magdaleno Sevilla MD, MD on 06/18/2016 08:01 .BRICE KAUR Jun 18, 2016 09:05
[2016-06-18 09:07] LABS: POTASSIUM 4.7 mmol/L (3.5-5.1)
[2016-06-18 09:10] LABS: CREATININE 0.92 mg/dl (0.61-1.24)
[2016-06-18 09:11] LABS: CALCIUM 7.6 mg/dl (8.4-10.2)
[2016-06-18] MEDS: CEFEPIME 1GM/50 ML (PMX) 50 ML IVPB SCH (09:16)
--- NOTE | 2016-06-18 09:47 | CONS ---
Date/Time of Note Date/Time of Note DATE: 06/18/16 TIME: 09:41 Assessment/Plan Assessment/Plan Additional Assessment/Plan Data settings; assist control of 16, tidal volume 500, PEEP of 5, 40% FiO2. Chest x-ray was reviewed from today which is essentially clear. Endotracheal tube is at an adequate level. Assessment and recommendations; 1. Patient admitted with acute STEMI. He underwent emergent coronary angiography however lesions could not be stented and had to undergo emergent bypass surgery. 2. Hypotension on Levophed. 3. Cardiac arrhythmia, currently on amiodarone drip patient in atrial flutter/ fibrillation with rate control below 100. 4. Difficult to rule out superimposed aspiration pneumonia. Patient currently on appropriate antibiotic regimen. Continue current supportive care. Once the patient is off pressor support and off balloon pump he will be evaluated for appropriateness of adequate mental status. Prognosis remains very guarded. 35 minutes of critical care time was spent evaluating the patient Consultation Date/Type/Reason Admit Date/Time Jun 16, 2016 at 17:32 Initial Consult Date 06/17/16 Type of Consultation: Pulmonary/critical care Referring Provider: MICHAEL MCCOLLUM DO 24 HR Interval Summary Free Text/Dictation Patient condition remains critical. Still requiring full ventilator support. Requiring intra-aortic balloon pump at a one-to-one ratio. Patient is is on Levophed drip for blood pressure maintenance. Developed atrial flutter/ fibrillation and had to be started on amiodarone drip as well. General examination; middle aged man, orally intubated, sedated. Currently in no distress. Exam/Review of Systems Vital Signs Vitals Vital Signs Date Time Temp Pulse Resp B/P Pulse Ox O2 Delivery O2 Flow Rate FiO2 06/18/16 07:45 118 22 122/56 06/18/16 07:35 100 40 06/18/16 07:00 100.3 06/18/16 04:15 Bag Valve Mask 06/16/16 11:06 2 Intake and Output 06/17/16 06/17/16 06/18/16 15:00 23:00 07:00 Intake Total 998.4 ml 1403.7 ml 1730.0 ml Output Total 993 ml 985 ml 620 ml Balance 5.4 ml 418.7 ml 1110.0 ml Exam HEENT examination; supple neck, no JVD. Patient is edentulous. Pupils are small bilaterally. No neck masses. Orally intubated. No thyromegaly. No neck bruits. Chest examination; diminished but clear breath sounds bilaterally. S1-S2 audible, irregular rhythm. Chest tube in place. Abdomen examination; soft, nondistended. No organomegaly. Bowel sounds audible. Extremity examination; chronic appearing lower extremity skin changes. Dorsalis pedis pulses not palpable bilaterally. GIS COORDINATOR examination; patient is sedated. Results Result Diagram: 06/18/16 0330 06/18/16 0330 Results 24 hrs Laboratory Tests Test 06/17/16 10:30 06/17/16 10:55 06/17/16 12:02 06/17/16 13:00 Bedside Glucose 119 126 121 105 Test 06/17/16 13:55 06/17/16 15:22 06/17/16 16:26 06/17/16 16:28 Bedside Glucose 131 116 121 Alanine Aminotransferase (ALT/SGPT) 55 Albumin 2.6 L Albumin/Globulin Ratio 0.89 Alkaline Phosphatase 47 Anion Gap 10 Aspartate Amino Transf (AST/SGOT) 209 H Blood Urea Nitrogen 11 Calcium Level 7.8 L Carbon Dioxide Level 26 Chloride Level 107 Creatinine 0.97 Creatinine Kinase MB (Mass) 33.50 H Direct Bilirubin 0.00 Globulin 2.90 Glucose Level 126 Hematocrit 35.4 L Indirect Bilirubin 0.5 Magnesium Level 1.7 Potassium Level 4.4 Sodium Level 139 Total Bilirubin 0.5 Total Protein 5.5 L Test 06/17/16 17:36 06/17/16 18:05 06/17/16 19:08 06/17/16 22:55 Bedside Glucose 115 113 102 127 Test 06/17/16 23:45 06/18/16 02:14 06/18/16 03:30 06/18/16 06:43 Magnesium Level 2.1 2.1 Potassium Level 4.4 4.7 Bedside Glucose 106 92 Activated Partial Thromboplast Time 38.8 H Alanine Aminotransferase (ALT/SGPT) 48 Albumin 2.4 L Alkaline Phosphatase 46 Anion Gap 10 Aspartate Amino Transf (AST/SGOT) 147 H Basophils # 0.0 Basophils % 0.1 Blood Urea Nitrogen 11 Calcium Level 7.6 L Carbon Dioxide Level 26 Chloride Level 108 Creatinine 0.92 Direct Bilirubin 0.00 Eosinophils # 0.3 Eosinophils % 1.4 Glucose Level 113 Hematocrit 33.5 L Hemoglobin 11.1 #L Hemoglobin A1c 5.5 INR International Normalized Ratio 1.39 Indirect Bilirubin 0.7 Lymphocytes # 1.8 Lymphocytes % 8.7 L Mean Corpuscular Hemoglobin 29.6 Mean Corpuscular Hemoglobin Concent 33.2 Mean Corpuscular Volume 89.2 Mean Platelet Volume 9.3 Monocytes # 1.9 H Monocytes % 9.5 Neutrophils # 16.2 H Neutrophils % 80.3 H Nucleated Red Blood Cells # 0.0 Nucleated Red Blood Cells % 0.0 Phosphorus Level 3.1 Platelet Count 151 # Prothrombin Time 17.1 H Prothrombin Time Ratio 1.3 Red Blood Count 3.76 L Red Cell Distribution Width 14.4 Sodium Level 139 Total Bilirubin 0.7 Total Protein 4.9 L White Blood Count 20.1 H Test 06/18/16 09:02 Bedside Glucose 96 Medications Medications Current Medications Hydromorphone HCl (Dilaudid) 0.2 mg Q15M PRN IV PAIN LEVEL 1-5 Last administered on 06/17/16 14:18; Admin Dose 0.2 MG; Start 06/16/16 at 17:30 Hydromorphone HCl (Dilaudid) 0.4 mg Q15M PRN IV PAIN LEVEL 6-10 Last administered on 06/18/16 04:35; Admin Dose 0.4 MG; Start 06/16/16 at 17:30 Oxycodone/ Acetaminophen (Percocet (5/ 325)) 1 tab Q3H PRN PO PAIN LEVEL 1-5; Start 06/16/16 at 17:30 Oxycodone/ Acetaminophen (Percocet (5/ 325)) 2 tab Q3H PRN PO PAIN LEVEL 6-10; Start 06/16/16 at 17:30 Ondansetron HCl (Zofran Inj) 4 mg Q6H PRN IV NAUSEA AND/OR VOMITING; Start at 17:30 Famotidine (Pepcid Iv) 20 mg BID@08,20 IV Last administered on 06/18/16 08:36 ; Admin Dose 20 MG; Start 06/16/16 at 20:00 Acetaminophen 650 mg 650 mg Q3H PRN PO ELEVATED TEMPERATURE Last administered on 06/17/16 16:18; Admin Dose 650 MG; Start 06/16/16 at 17:30 Magnesium Sulfate/ Dextrose (Magnesium Sulfate 1 Gm/D5W) 100 ml @ 100 mls/hr PRN PRN IVPB PENDING LAB VALUE Last administered on 06/17/16 19:38; Admin Dose 100 MLS/HR; Start 06/16/16 at 17:30 Diagnostic Test (Pha) (Accucheck) 1 ea Q1H XX Last administered on 06/18/16 06 :44; Admin Dose 1 EA; Start 06/16/16 at 17:30 Dextrose (D50w Syringe) 25 ml Q15M PRN IV Till BS 80 mg/dL or above x2; Start 06/16/16 at 17:30 Dextrose 50 ml 50 ml Q15M PRN IV Till BS 80 mg/dL or above x2; Start 06/16/16 at 17:30 Propofol (Diprivan) 100 ml @ 3.273 mls/ hr Q12H IV Last administered on 01:50; Admin Dose 9.8 MLS/HR; Start 06/16/16 at 17:30 Docusate Sodium 100 mg 100 mg BID PO Last administered on 06/18/16 08:37; Admin Dose 100 MG; Start 06/16/16 at 21:00 Levetiracetam 500 mg/Sodium Chloride 105 ml @ 420 mls/hr Q12 IVPB Last administered on 06/18/16 08:39; Admin Dose 420 MLS/HR; Start 06/16/16 at 21:00 Norepinephrine/ Dextrose (Levophed/D5W) 500 ml @ 1.87 mls/hr TITRATE IV Last administered on 06/18/16 01:59; Admin Dose 15 MLS/HR; Start 06/17/16 at 04:00 Acetaminophen (Tylenol Supp) 650 mg Q6H PRN [place] FEVER Last administered on 19:49; Admin Dose 650 MG; Start 06/16/16 at 22:00 Atorvastatin Calcium (Lipitor) 80 mg HS NGT Last administered on 06/17/16 21: 55; Admin Dose 80 MG; Start 06/17/16 at 21:00 Aspirin (Aspirin) 81 mg DAILY NGT Last administered on 06/18/16 08:37; Admin Dose 81 MG; Start 06/17/16 at 09:00 Clopidogrel Bisulfate (plaVIX) 75 mg DAILY NGT Last administered on 06/18/16 08:38; Admin Dose 75 MG; Start 06/17/16 at 09:00 Metoprolol Tartrate 25 mg 25 mg BID NGT Last administered on 06/17/16 21:51; Admin Dose 25 MG; Start 06/17/16 at 09:00 Midazolam HCl 50 ml @ 1 mls/hr TITRATE IV Last administered on 06/17/16 22:16 ; Admin Dose 4 MLS/HR; Start 06/17/16 at 10:30 Cefepime HCl 50 ml @ 100 mls/hr Q12 IVPB Last administered on 06/18/16 09:16 ; Admin Dose 100 MLS/HR; Start 06/17/16 at 14:30 Sodium Chloride 1,000 ml @ 80 mls/hr Q10H12L IV Last administered on 03:24; Admin Dose 80 MLS/HR; Start 06/17/16 at 15:00 Vancomycin HCl/ Sodium Chloride (Vancocin/NS) 250 ml @ 83.333 mls/ hr Q12H IVPB Last administered on 06/18/16 03:24; Admin Dose 83.333 MLS/HR; Start at 15:30 Amiodarone HCl 400 mg 400 mg BID NGT Last administered on 06/18/16 02:17; Admin Dose 400 MG; Start 06/18/16 at 02:00; Status Future Hold Amiodarone HCl (Cordarone 900mg/ D5W Drip) 500 ml @ 0 mls/hr Q0M IV Last administered on 06/18/16 05:23; Admin Dose 16.3 MLS/HR; Start 06/18/16 at 05:00 ; Stop 06/19/16 at 04:59 RICKY MAS Jun 18, 2016 09:47
[2016-06-18] MEDS: METOPROLOL 25 MG TAB NGT SCH ×2 (10:18→21:06)
[2016-06-18] MEDS: ACETAMINOPHEN 325 MG TAB PO PRN (10:40)
--- NOTE | 2016-06-18 11:21 | QN ---
Documentation Comment ID consult requested for sepsis after cardiac arrest. Dr. Myles to see pt shortly. Thank you. PENELOPE GOMEZ NP Jun 18, 2016 11:21
[2016-06-18] MEDS: MIDAZOLAM (DRIP) 50 mg/50 mL 50 ML IV SCH (12:05)
[2016-06-18] MEDS: MUPIROCIN 2% 22 GM OINT TOP SCH ×2 (12:07→21:07)
[2016-06-18 15:40] LABS: WHITE BLOOD COUNT 35.8 10^3/ul (4.8-10.8)
--- NOTE | 2016-06-18 15:53 | CONS ---
Date/Time of Note Date/Time of Note DATE: 06/18/16 TIME: 15:52 Assessment/Plan Assessment/Plan Additional Assessment/Plan patient seen and examined. full note to follow Consultation Date/Type/Reason Admit Date/Time Jun 16, 2016 at 17:32 Initial Consult Date 06/17/16 Type of Consultation: Pulmonary/critical care Referring Provider: MICHAEL MCCOLLUM DO Exam/Review of Systems Vital Signs Vitals Vital Signs Date Time Temp Pulse Resp B/P Pulse Ox O2 Delivery O2 Flow Rate FiO2 06/18/16 13:45 75 23 119/58 100 06/18/16 13:23 40 06/18/16 13:00 100.7 06/18/16 08:10 Bag Valve Mask 06/16/16 11:06 2 Intake and Output 06/17/16 06/17/16 06/18/16 15:00 23:00 07:00 Intake Total 998.4 ml 1403.7 ml 1730.0 ml Output Total 993 ml 985 ml 701 ml Balance 5.4 ml 418.7 ml 1029.0 ml Results Result Diagram: 06/18/16 0330 06/18/16 0330 Results 24 hrs Laboratory Tests Test 06/17/16 16:26 06/17/16 16:28 06/17/16 17:36 06/17/16 18:05 Alanine Aminotransferase (ALT/SGPT) 55 Albumin 2.6 L Albumin/Globulin Ratio 0.89 Alkaline Phosphatase 47 Anion Gap 10 Aspartate Amino Transf (AST/SGOT) 209 H Blood Urea Nitrogen 11 Calcium Level 7.8 L Carbon Dioxide Level 26 Chloride Level 107 Creatinine 0.97 Creatinine Kinase MB (Mass) 33.50 H Direct Bilirubin 0.00 Globulin 2.90 Glucose Level 126 Hematocrit 35.4 L Indirect Bilirubin 0.5 Magnesium Level 1.7 Potassium Level 4.4 Sodium Level 139 Total Bilirubin 0.5 Total Protein 5.5 L Bedside Glucose 121 115 113 Test 06/17/16 19:08 06/17/16 22:55 06/17/16 23:45 06/18/16 02:14 Bedside Glucose 102 127 106 Magnesium Level 2.1 Potassium Level 4.4 Test 06/18/16 03:30 06/18/16 06:43 06/18/16 09:02 06/18/16 10:51 Activated Partial Thromboplast Time 38.8 H Alanine Aminotransferase (ALT/SGPT) 48 Albumin 2.4 L Alkaline Phosphatase 46 Anion Gap 10 Aspartate Amino Transf (AST/SGOT) 147 H Basophils # 0.0 Basophils % 0.1 Blood Urea Nitrogen 11 Calcium Level 7.6 L Carbon Dioxide Level 26 Chloride Level 108 Creatinine 0.92 Direct Bilirubin 0.00 Eosinophils # 0.3 Eosinophils % 1.4 Glucose Level 113 Hematocrit 33.5 L Hemoglobin 11.1 #L Hemoglobin A1c 5.5 INR International Normalized Ratio 1.39 Indirect Bilirubin 0.7 Lymphocytes # 1.8 Lymphocytes % 8.7 L Magnesium Level 2.1 Mean Corpuscular Hemoglobin 29.6 Mean Corpuscular Hemoglobin Concent 33.2 Mean Corpuscular Volume 89.2 Mean Platelet Volume 9.3 Monocytes # 1.9 H Monocytes % 9.5 Neutrophils # 16.2 H Neutrophils % 80.3 H Nucleated Red Blood Cells # 0.0 Nucleated Red Blood Cells % 0.0 Phosphorus Level 3.1 Platelet Count 151 # Potassium Level 4.7 Prothrombin Time 17.1 H Prothrombin Time Ratio 1.3 Red Blood Count 3.76 L Red Cell Distribution Width 14.4 Sodium Level 139 Total Bilirubin 0.7 Total Protein 4.9 L White Blood Count 20.1 H Bedside Glucose 92 96 98 Test 06/18/16 13:29 06/18/16 15:22 Bedside Glucose 116 97 Medications Medications Current Medications Hydromorphone HCl (Dilaudid) 0.2 mg Q15M PRN IV PAIN LEVEL 1-5 Last administered on 06/17/16 14:18; Admin Dose 0.2 MG; Start 06/16/16 at 17:30 Hydromorphone HCl (Dilaudid) 0.4 mg Q15M PRN IV PAIN LEVEL 6-10 Last administered on 06/18/16 04:35; Admin Dose 0.4 MG; Start 06/16/16 at 17:30 Oxycodone/ Acetaminophen (Percocet (5/ 325)) 1 tab Q3H PRN PO PAIN LEVEL 1-5; Start 06/16/16 at 17:30 Oxycodone/ Acetaminophen (Percocet (5/ 325)) 2 tab Q3H PRN PO PAIN LEVEL 6-10; Start 06/16/16 at 17:30 Ondansetron HCl (Zofran Inj) 4 mg Q6H PRN IV NAUSEA AND/OR VOMITING; Start at 17:30 Famotidine (Pepcid Iv) 20 mg BID@08,20 IV Last administered on 06/18/16 08:36 ; Admin Dose 20 MG; Start 06/16/16 at 20:00 Acetaminophen 650 mg 650 mg Q3H PRN PO ELEVATED TEMPERATURE Last administered on 06/18/16 10:40; Admin Dose 650 MG; Start 06/16/16 at 17:30 Magnesium Sulfate/ Dextrose (Magnesium Sulfate 1 Gm/D5W) 100 ml @ 100 mls/hr PRN PRN IVPB PENDING LAB VALUE Last administered on 06/17/16 19:38; Admin Dose 100 MLS/HR; Start 06/16/16 at 17:30 Diagnostic Test (Pha) (Accucheck) 1 ea Q1H XX Last administered on 06/18/16 06 :44; Admin Dose 1 EA; Start 06/16/16 at 17:30 Dextrose (D50w Syringe) 25 ml Q15M PRN IV Till BS 80 mg/dL or above x2; Start 06/16/16 at 17:30 Dextrose 50 ml 50 ml Q15M PRN IV Till BS 80 mg/dL or above x2; Start 06/16/16 at 17:30 Propofol (Diprivan) 100 ml @ 3.273 mls/ hr Q12H IV Last administered on 12:12; Admin Dose 9.819 MLS/HR; Start 06/16/16 at 17:30 Docusate Sodium 100 mg 100 mg BID PO Last administered on 06/18/16 08:37; Admin Dose 100 MG; Start 06/16/16 at 21:00 Levetiracetam 500 mg/Sodium Chloride 105 ml @ 420 mls/hr Q12 IVPB Last administered on 06/18/16 08:39; Admin Dose 420 MLS/HR; Start 06/16/16 at 21:00 Norepinephrine/ Dextrose (Levophed/D5W) 500 ml @ 1.87 mls/hr TITRATE IV Last administered on 06/18/16 01:59; Admin Dose 15 MLS/HR; Start 06/17/16 at 04:00 Acetaminophen (Tylenol Supp) 650 mg Q6H PRN [place] FEVER Last administered on 19:49; Admin Dose 650 MG; Start 06/16/16 at 22:00 Atorvastatin Calcium (Lipitor) 80 mg HS NGT Last administered on 06/17/16 21: 55; Admin Dose 80 MG; Start 06/17/16 at 21:00 Aspirin (Aspirin) 81 mg DAILY NGT Last administered on 06/18/16 08:37; Admin Dose 81 MG; Start 06/17/16 at 09:00 Clopidogrel Bisulfate (plaVIX) 75 mg DAILY NGT Last administered on 06/18/16 08:38; Admin Dose 75 MG; Start 06/17/16 at 09:00 Metoprolol Tartrate 25 mg 25 mg BID NGT Last administered on 06/18/16 10:18; Admin Dose 25 MG; Start 06/17/16 at 09:00 Midazolam HCl 50 ml @ 1 mls/hr TITRATE IV Last administered on 06/18/16 12:05 ; Admin Dose 4 MLS/HR; Start 06/17/16 at 10:30 Cefepime HCl 50 ml @ 100 mls/hr Q12 IVPB Last administered on 06/18/16 09:16 ; Admin Dose 100 MLS/HR; Start 06/17/16 at 14:30 Sodium Chloride 1,000 ml @ 80 mls/hr [id number] IV Last administered on 03:24; Admin Dose 80 MLS/HR; Start 06/17/16 at 15:00 Vancomycin HCl/ Sodium Chloride (Vancocin/NS) 250 ml @ 83.333 mls/ hr Q12H IVPB Last administered on 06/18/16 03:24; Admin Dose 83.333 MLS/HR; Start at 15:30 Amiodarone HCl 400 mg 400 mg BID NGT Last administered on 06/18/16 02:17; Admin Dose 400 MG; Start 06/18/16 at 02:00; Status Future Hold Amiodarone HCl (Cordarone 900mg/ D5W Drip) 500 ml @ 0 mls/hr Q0M IV Last administered on 06/18/16 05:23; Admin Dose 16.3 MLS/HR; Start 06/18/16 at 05:00 ; Stop 06/19/16 at 04:59 Mupirocin (Bactroban) 1 applic BID TOP Last administered on 06/18/16t 12:07; Admin Dose 1 APPLIC; Start 06/18/16 at 12:00 Miscellaneous Information (*Rx Drug Level Order Reminder*) 1 ONCE ONCE XX ; Start 06/19/16 at 02:30; Stop 06/19/16 at 02:31 GÉNESIS HARRIS MD Jun 18, 2016 15:53
--- NOTE | 2016-06-18 17:48 | PN ---
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
--- NOTE | 2016-06-18 18:21 | OPR ---
DATE OF OPERATION: 06/18/2016 PREOPERATIVE DIAGNOSIS: Emergency coronary artery bypass graft. POSTOPERATIVE DIAGNOSIS: Emergency coronary artery bypass graft. PROCEDURE: Removal of intra-aortic balloon pump. SURGEON: Malissa Back MD DESCRIPTION OF PROCEDURE: The patient was in supine position. All the sutures were cut. The ballo on pump was turned off. We then removed the balloon pump and sheath at the same time. We let the f emoral artery bleed antegrade and retrograde. We then placed pressure manually for a few minutes an d then placed the FemoStop over it. We had good Dopplerable pulse in the posterior tibialis. He wi ll remain flat and keep the FemoStop on for 6 hours. Dictated By: MALISSA LEAHY/NTS Conf#: [id number] DID#: [id number]
[2016-06-18] MEDS: DEXTROSE 50% 50 ML SYRINGE IV PRN (20:23)
[2016-06-18] MEDS: PIPER-TAZO 3.375 GM IV (PMX) 100 ML IVPB SCH (20:29)
--- NOTE | 2016-06-18 20:32 | PN ---
Date/Time of Note Date/Time of Note DATE: 06/18/16 TIME: 20:28 Assessment/Plan VTE Prophylaxis VTE Prophylaxis Intervention: SCD's Lines/Catheters IV C[facility]ter Type (from [facility]): Cordis Urinary Cath still in place: Yes Reason Cath still needed: other (indicate) (intubated) Assessment/Plan Chief Complaint/Hosp Course Patient presents two days after discharge for SBO with a STEMI and VF arrest, has 3 vessel coronary disease and known cardiomyopathy, underwent emergent CABG. Problems: Assessment/Plan STEMI, s/p CABG Post op afib and aflutter ischemic cardiomyopathy acute respiratory failure Recc: Continue asa, clopidogrel, statin, metoprolol Continue amiodarone iv loading Postoperative care and vent weaning per surgical / critical care Subjective 24 Hr Interval Summary Free Text/Dictation Patient remains intubated, IABP removed today. He remains hemodynamically stable. He had some aflutter and fib last night, but at present is in nsr on an amiodarone drip. Subjective hx not possible: pt non-verbal Exam/Review of Systems Vital Signs Vitals Vital Signs Date Time Temp Pulse Resp B/P Pulse Ox O2 Delivery O2 Flow Rate FiO2 06/18/16 17:00 99.7 74 25 121/57 06/18/16 16:45 100 40 06/18/16 08:10 Bag Valve Mask 06/16/16 11:06 2 Intake and Output 06/17/16 06/17/16 06/18/16 15:00 23:00 07:00 Intake Total 998.4 ml 1403.7 ml 1730.0 ml Output Total 993 ml 985 ml 701 ml Balance 5.4 ml 418.7 ml 1029.0 ml Exam Constitutional: other (intubated) Head: normocephalic ENMT: intubated Neck: No jvd Respiratory: clear to auscultation, normal air movement Cardiovascular: regular rate and rhythm, No jugular venous distention (JVD), No murmurs/extra sounds Gastrointestinal: non-tender, soft Genitourinary - Male: nl penis Musculoskeletal: nl extremities to inspection Extremities: other (right groin site with femstop in place, surrounding skin soft, no hematoma noted) Skin: nl turgor Results Result Diagram: 06/18/16 0330 06/18/16 0330 Results 24 hrs Laboratory Tests Test 06/17/16 22:55 06/17/16 23:45 06/18/16 02:14 06/18/16 03:30 Bedside Glucose 127 106 Magnesium Level 2.1 2.1 Potassium Level 4.4 4.7 Activated Partial Thromboplast Time 38.8 H Alanine Aminotransferase (ALT/SGPT) 48 Albumin 2.4 L Alkaline Phosphatase 46 Anion Gap 10 Aspartate Amino Transf (AST/SGOT) 147 H Basophils # 0.0 Basophils % 0.1 Blood Urea Nitrogen 11 Calcium Level 7.6 L Carbon Dioxide Level 26 Chloride Level 108 Creatinine 0.92 Direct Bilirubin 0.00 Eosinophils # 0.3 Eosinophils % 1.4 Glucose Level 113 Hematocrit 33.5 L Hemoglobin 11.1 #L Hemoglobin A1c 5.5 INR International Normalized Ratio 1.39 Indirect Bilirubin 0.7 Lymphocytes # 1.8 Lymphocytes % 8.7 L Mean Corpuscular Hemoglobin 29.6 Mean Corpuscular Hemoglobin Concent 33.2 Mean Corpuscular Volume 89.2 Mean Platelet Volume 9.3 Monocytes # 1.9 H Monocytes % 9.5 Neutrophils # 16.2 H Neutrophils % 80.3 H Nucleated Red Blood Cells # 0.0 Nucleated Red Blood Cells % 0.0 Phosphorus Level 3.1 Platelet Count 151 # Prothrombin Time 17.1 H Prothrombin Time Ratio 1.3 Red Blood Count 3.76 L Red Cell Distribution Width 14.4 Sodium Level 139 Total Bilirubin 0.7 Total Protein 4.9 L White Blood Count 20.1 H Test 06/18/16 06:43 06/18/16 09:02 06/18/16 10:51 06/18/16 13:29 Bedside Glucose 92 96 98 116 Test 06/18/16 15:22 06/18/16 17:02 06/18/16 19:22 Bedside Glucose 97 84 76 Medications Medications Current Medications Hydromorphone HCl (Dilaudid) 0.2 mg Q15M PRN IV PAIN LEVEL 1-5 Last administered on 06/17/16 14:18; Admin Dose 0.2 MG; Start 06/16/16 at 17:30 Hydromorphone HCl (Dilaudid) 0.4 mg Q15M PRN IV PAIN LEVEL 6-10 Last administered on 06/18/16 04:35; Admin Dose 0.4 MG; Start 06/16/16 at 17:30 Oxycodone/ Acetaminophen (Percocet (5/ 325)) 1 tab Q3H PRN PO PAIN LEVEL 1-5; Start 06/16/16 at 17:30 Oxycodone/ Acetaminophen (Percocet (5/ 325)) 2 tab Q3H PRN PO PAIN LEVEL 6-10; Start 06/16/16 at 17:30 Ondansetron HCl (Zofran Inj) 4 mg Q6H PRN IV NAUSEA AND/OR VOMITING; Start at 17:30 Famotidine (Pepcid Iv) 20 mg BID@08,20 IV Last administered on 06/18/16 08:36 ; Admin Dose 20 MG; Start 06/16/16 at 20:00 Acetaminophen 650 mg 650 mg Q3H PRN PO ELEVATED TEMPERATURE Last administered on 06/18/16 10:40; Admin Dose 650 MG; Start 06/16/16 at 17:30 Magnesium Sulfate/ Dextrose (Magnesium Sulfate 1 Gm/D5W) 100 ml @ 100 mls/hr PRN PRN IVPB PENDING LAB VALUE Last administered on 06/17/16 19:38; Admin Dose 100 MLS/HR; Start 06/16/16 at 17:30 Diagnostic Test (Pha) (Accucheck) 1 ea Q1H XX Last administered on 06/18/16 06 :44; Admin Dose 1 EA; Start 06/16/16 at 17:30 Dextrose (D50w Syringe) 25 ml Q15M PRN IV Till BS 80 mg/dL or above x2; Start 06/16/16 at 17:30 Dextrose 50 ml 50 ml Q15M PRN IV Till BS 80 mg/dL or above x2; Start 06/16/16 at 17:30 Propofol (Diprivan) 100 ml @ 3.273 mls/ hr Q12H IV Last administered on 12:12; Admin Dose 9.819 MLS/HR; Start 06/16/16 at 17:30 Docusate Sodium 100 mg 100 mg BID PO Last administered on 06/18/16 08:37; Admin Dose 100 MG; Start 06/16/16 at 21:00 Levetiracetam 500 mg/Sodium Chloride 105 ml @ 420 mls/hr Q12 IVPB Last administered on 06/18/16 08:39; Admin Dose 420 MLS/HR; Start 06/16/16 at 21:00 Norepinephrine/ Dextrose (Levophed/D5W) 500 ml @ 1.87 mls/hr TITRATE IV Last administered on 06/18/16 01:59; Admin Dose 15 MLS/HR; Start 06/17/16 at 04:00 Acetaminophen (Tylenol Supp) 650 mg Q6H PRN [place] FEVER Last administered on 19:49; Admin Dose 650 MG; Start 06/16/16 at 22:00 Atorvastatin Calcium (Lipitor) 80 mg HS NGT Last administered on 06/17/16 21: 55; Admin Dose 80 MG; Start 06/17/16 at 21:00 Aspirin (Aspirin) 81 mg DAILY NGT Last administered on 06/18/16 08:37; Admin Dose 81 MG; Start 06/17/16 at 09:00 Clopidogrel Bisulfate (plaVIX) 75 mg DAILY NGT Last administered on 06/18/16 08:38; Admin Dose 75 MG; Start 06/17/16 at 09:00 Metoprolol Tartrate 25 mg 25 mg BID NGT Last administered on 06/18/16 10:18; Admin Dose 25 MG; Start 06/17/16 at 09:00 Midazolam HCl 50 ml @ 1 mls/hr TITRATE IV Last administered on 06/18/16 12:05 ; Admin Dose 4 MLS/HR; Start 06/17/16 at 10:30 Sodium Chloride 1,000 ml @ 80 mls/hr [id number] IV Last administered on 03:24; Admin Dose 80 MLS/HR; Start 06/17/16 at 15:00 Vancomycin HCl/ Sodium Chloride (Vancocin/NS) 250 ml @ 83.333 mls/ hr Q12H IVPB Last administered on 06/18/16 17:35; Admin Dose 83.333 MLS/HR; Start at 15:30 Amiodarone HCl 400 mg 400 mg BID NGT Last administered on 06/18/16 02:17; Admin Dose 400 MG; Start 06/18/16 at 02:00; Status Future Hold Amiodarone HCl (Cordarone 900mg/ D5W Drip) 500 ml @ 0 mls/hr Q0M IV Last administered on 2/23/17at 05:23; Admin Dose 16.3 MLS/HR; Start 06/18/16 at 05:00 ; Stop 06/19/16 at 04:59 Mupirocin (Bactroban) 1 applic BID TOP Last administered on 06/18/16t 12:07; Admin Dose 1 APPLIC; Start 06/18/16 at 12:00 Miscellaneous Information 1 ONCE ONCE XX ; Start 06/19/16 at 02:30; Stop at 02:31 Piperacillin Sod/ Tazobactam Sod (Zosyn 3.375gm/ 100 ml (Pmx)) 100 ml @ 200 mls /hr Q8 IVPB ; Start 06/18/16 at 20:00 BAM BERTRAND Jun 18, 2016 20:32
[2016-06-18] MEDS: ATORVASTATIN 80 MG TAB NGT SCH (21:06)
[2016-06-18 22:10] LABS: CREATININE 0.7 mg/dl (0.61-1.24)
[2016-06-18 22:11] LABS: CALCIUM 7.1 mg/dl (8.4-10.2); MAGNESIUM 1.7 mg/dl (1.7-2.5); PHOSPHORUS 3.1 mg/dl (2.5-4.9)
[2016-06-18 22:26] LABS: AADO2 Arterial 123.5 mmHg (7.0-24.0); Arterial Base Excess -1.8 mmol/L (-3.0-3); Arterial COHb 0.3 % (0.0-3.0); Arterial Fraction of Oxyhgb 97.5 % (93.0-99.0); Arterial HCO3 22.1 mmol/L (22.0-26.0); Arterial MetHb 0.4 % (0.0-1.5); Arterial Total Hemglobin 11.7 g/dl (12.0-18.0); MODE VENT - AC
[2016-06-18] MEDS ORDERED: MAGNESIUM SULFATE 2 GM/50 ML 50 ML IVPB ONE (23:30)
[2016-06-19] VITALS (67 sets, daily range): BP systolic 98–151; BP diastolic 50–70; PULSE 73–91; RESP 8–33
[2016-06-19] MEDS: ACCUCHECK XX SCH ×9 (00:30→08:30)
[2016-06-19] MEDS: DEXTROSE 50% 50 ML SYRINGE IV PRN (00:59)
[2016-06-19] MEDS: DEXTROSE 5%-0.9% NACL 1,000 ML IV SCH ×2 (02:04→16:00)
[2016-06-19 02:54] LABS: ADD SCAN DIFF NO
[2016-06-19 03:03] LABS: BASOPHILS % 0.1 % (0.0-2.0); EOSINOPHILS # 0.5 10^3/ul (0.0-0.5); HEMATOCRIT 31.6 % (42.0-52.0); HEMOGLOBIN 10.3 g/dl (14.0-18.0); LYMPHOCYTES # 1.2 10^3/ul (0.8-2.9); MEAN CORPUSCULAR HEMOGLOBIN 29.6 pg (29.0-33.0); MEAN CORPUSCULAR HGB CONC 32.6 g/dl (32.0-37.0); MEAN CORPUSCULAR VOLUME 90.8 fl (82.0-101.0); MEAN PLATELET VOLUME 10.7 fl (7.4-10.4); MONOCYTE # 1.4 10^3/ul (0.3-0.9); MONOCYTES % 8.2 % (0.0-11.0); NEUTROPHIL # 13.7 10^3/ul (1.6-7.5); NEUTROPHILS % 80.9 % (39.0-77.0); PLATELET COUNT 125 10^3/UL (140-415); RED BLOOD COUNT 3.48 10^6/ul (4.70-6.10); RED CELL DISTRIBUTION WIDTH 13.7 % (11.5-14.5); WHITE BLOOD COUNT 16.9 10^3/ul (4.8-10.8)
[2016-06-19 03:06] LABS: ALBUMIN 2.3 g/dl (3.3-4.9)
[2016-06-19 03:07] LABS: POTASSIUM 4.3 mmol/L (3.5-5.1)
[2016-06-19 03:09] LABS: CREATININE 0.82 mg/dl (0.61-1.24)
[2016-06-19 03:10] LABS: CALCIUM 7.5 mg/dl (8.4-10.2); MAGNESIUM 2.3 mg/dl (1.7-2.5)
[2016-06-19 03:11] LABS: CHOL/HDL RATIO 3.6 RATIO
[2016-06-19] MEDS: MIDAZOLAM (DRIP) 50 mg/50 mL 50 ML IV SCH (03:24)
[2016-06-19] MEDS: VANCOMYCIN 1.5 GM in SOD CHLORIDE 0.9% 250 ML IVPB SCH (03:30)
--- NOTE | 2016-06-19 05:57 | PN ---
Date/Time of Note Date/Time of Note DATE: 06/19/16 TIME: 05:57 Assessment/Plan Lines/Catheters IV Catheter Type (from Nrs): Cordis Solis in Place (from Nrs): Yes Assessment/Plan Assessment/Plan WBC 16 wean to extubate HD stable Exam/Review of Systems Vital Signs Vitals Vital Signs Date Time Temp Pulse Resp B/P Pulse Ox O2 Delivery O2 Flow Rate FiO2 06/19/16 04:48 81 26 100 40 06/19/16 01:15 107/53 Mechanical Ventilator 06/19/16 00:00 98.8 06/16/16 11:06 2 Intake and Output 06/18/16 06/18/16 06/19/16 15:00 23:00 07:00 Intake Total 710.32 ml 1385.94 ml 334.2 ml Output Total 716 ml 520 ml 300 ml Balance -5.68 ml 865.94 ml 34.2 ml Results Result Diagram: 06/19/16 0245 06/19/16 0245 TITA CIFUENTES MD Jun 19, 2016 05:57
[2016-06-19] MEDS: PIPER-TAZO 3.375 GM IV (PMX) 100 ML IVPB SCH ×3 (06:02→22:03)
--- NOTE | 2016-06-19 07:19 | CONS ---
Date/Time of Note Date/Time of Note DATE: 06/18/16 TIME:17:00 Assessment/Plan Assessment/Plan Additional Assessment/Plan 1. Severe Sepsis vs SIRS 2. Vfib arrest 3. s/p emergent cabg 4. cad 5. Large basal cell carcinoma of the upper mid back s/p excision R: agree with tee cx lactic acid procalc vanco/zosyn consideration of changing to Imipenem if fails to improve will follow carmen with you critical care time > 1 hour Consultation Date/Type/Reason Admit Date/Time Jun 16, 2016 at 17:32 Date of Consultation: Jun 18, 2016 Type of Consultation: id Reason for Consultation septic shock vs. sirs Referring Provider: BRICE MONTELONGO Hx of Present Illness This is an unfortunate 61 yo male who was recently at [facility] for sbo. He presented approx 2 days after discharge with STEMI and cardiac arrest. He underwent emergent CABG. Post op he has had persistent fever and pressor requirement. Per nursing they are actively weaning him off the vent. All cxs negative thus far. He has a previous hx of back lesion with Enterobacter and S.aureus patient is unable to provide ros Subjective hx not possible: pt non-verbal Eyes: no complaints ENT: no complaints Respiratory: shortness of breath Cardiovascular: chest pain Gastrointestinal: no complaints Genitourinary: no complaints Musculoskeletal: no complaints Skin: no complaints Neurologic: no complaints Endocrine: no complaints Psychological: nl mood/affect Past Medical History as per hpi also notable for : Large basal cell carcinoma of the upper mid back. Social History Smoking Status: Never smoker Exam/Review of Systems Vital Signs Vitals Vital Signs Date Time Temp Pulse Resp B/P Pulse Ox O2 Delivery O2 Flow Rate FiO2 06/19/16 04:48 81 26 100 40 06/19/16 01:15 107/53 Mechanical Ventilator 06/19/16 00:00 98.8 06/16/16 11:06 2 Intake and Output 06/18/16 06/18/16 06/19/16 15:00 23:00 07:00 Intake Total 710.32 ml 1385.94 ml 1063.6 ml Output Total 716 ml 520 ml 300 ml Balance -5.68 ml 865.94 ml 763.6 ml Exam intubated and sedated. balloon pump in place Constitutional: non-verbal Head: atraumatic, normocephalic Eyes: nl conjunctiva Respiratory: clear to auscultation Cardiovascular: other (baloon pump) Gastrointestinal: nl liver, spleen, soft Results Result Diagram: 06/19/16 0245 06/19/16 0245 Results 24 hrs Laboratory Tests Test 06/18/16 09:02 06/18/16 10:51 06/18/16 13:29 06/18/16 15:22 Bedside Glucose 96 98 116 97 Test 06/18/16 17:02 06/18/16 19:22 06/18/16 19:43 06/18/16 20:13 Bedside Glucose 84 76 60 L Arterial Blood HCO3 22.1 Arterial Blood Base Excess -1.8 Arterial Blood Oxygen Saturation 98.2 H Kyle Test N/A Arterial Blood Gas Puncture Site A-Line Arterial Blood Carboxyhemoglobin 0.3 Arterial Blood Date Drawn 06/18/2016 7:15:00 PM Arterial Blood Methemoglobin 0.4 Arterial Blood pCO2 (Temp correct) 34.4 L Arterial Blood pH (Temp corrected) 7.425 Arterial Blood pO2 (Temp corrected) 122.1 H Blood Gas A-a O2 Differential 123.5 H Blood Gas Actual Respiration Rate 19 Blood Gas Low PEEP Setting 5.0 Blood Gas Modality VENT - AC Blood Gas Notified Time 06/18/2016 7:35:00 PM Blood Gas Notified Whom MA Blood Gas Respiration Rate 16.0 Blood Gas Specimen Source Blood arterial Blood Gas Temperature 37.0 Blood Gas Tidal Volume 500.0 FiO2 40.0 Oxyhemoglobin Percent 97.5 Total Hemoglobin 11.7 L Test 06/18/16 20:40 06/18/16 20:55 06/18/16 21:03 06/18/16 21:17 Bedside Glucose 48 *L 105 117 Anion Gap 9 Blood Urea Nitrogen 10 Calcium Level 7.1 L Carbon Dioxide Level 25 Chloride Level 103 Creatinine 0.70 Glucose Level 267 #H Magnesium Level 1.7 Phosphorus Level 3.1 Potassium Level 4.0 Sodium Level 133 L Test 06/18/16 21:34 06/18/16 22:05 06/18/16 22:29 06/18/16 22:58 Bedside Glucose 113 77 98 106 Test 06/19/16 00:00 06/19/16 00:56 06/19/16 01:14 06/19/16 01:27 Bedside Glucose 77 65 L 121 96 Test 06/19/16 01:59 06/19/16 02:40 06/19/16 02:45 06/19/16 02:51 Bedside Glucose 102 114 Vancomycin Level Trough 10.7 Albumin 2.3 L Anion Gap 8 Basophils # 0.0 Basophils % 0.1 Blood Urea Nitrogen 10 Calcium Level 7.5 L Carbon Dioxide Level 26 Chloride Level 105 Cholesterol Level 65 L Cholesterol/HDL Ratio 3.6 Creatine Kinase 803 H Creatinine 0.82 Eosinophils # 0.5 Eosinophils % 3.0 Glucose Level 121 # HDL Cholesterol 18 L Hematocrit 31.6 L Hemoglobin 10.3 L LDL Cholesterol, Calculated 30 Lymphocytes # 1.2 Lymphocytes % 7.0 L Magnesium Level 2.3 Mean Corpuscular Hemoglobin 29.6 Mean Corpuscular Hemoglobin Concent 32.6 Mean Corpuscular Volume 90.8 Mean Platelet Volume 10.7 H Monocytes # 1.4 H Monocytes % 8.2 Neutrophils # 13.7 H Neutrophils % 80.9 H Nucleated Red Blood Cells # 0.0 Nucleated Red Blood Cells % 0.0 Phosphorus Level 2.0 #L Platelet Count 125 L Potassium Level 4.3 Red Blood Count 3.48 L Red Cell Distribution Width 13.7 Sodium Level 135 Triglycerides Level 85 White Blood Count 16.9 H Test 06/19/16 04:36 06/19/16 06:17 Bedside Glucose 101 96 Medications Medications Current Medications Hydromorphone HCl (Dilaudid) 0.2 mg Q15M PRN IV PAIN LEVEL 1-5 Last administered on 06/17/16 14:18; Admin Dose 0.2 MG; Start 06/16/16 at 17:30 Hydromorphone HCl (Dilaudid) 0.4 mg Q15M PRN IV PAIN LEVEL 6-10 Last administered on 06/18/16 04:35; Admin Dose 0.4 MG; Start 06/16/16 at 17:30 Oxycodone/ Acetaminophen (Percocet (5/ 325)) 1 tab Q3H PRN PO PAIN LEVEL 1-5; Start 06/16/16 at 17:30 Oxycodone/ Acetaminophen (Percocet (5/ 325)) 2 tab Q3H PRN PO PAIN LEVEL 6-10; Start 06/16/16 at 17:30 Ondansetron HCl (Zofran Inj) 4 mg Q6H PRN IV NAUSEA AND/OR VOMITING; Start at 17:30 Famotidine (Pepcid Iv) 20 mg BID@08,20 IV Last administered on 06/18/16 20:23 ; Admin Dose 20 MG; Start 06/16/16 at 20:00 Acetaminophen 650 mg 650 mg Q3H PRN PO ELEVATED TEMPERATURE Last administered on 06/18/16 10:40; Admin Dose 650 MG; Start 06/16/16 at 17:30 Magnesium Sulfate/ Dextrose (Magnesium Sulfate 1 Gm/D5W) 100 ml @ 100 mls/hr PRN PRN IVPB PENDING LAB VALUE Last administered on 06/17/16 19:38; Admin Dose 100 MLS/HR; Start 06/16/16 at 17:30 Diagnostic Test (Pha) (Accucheck) 1 ea Q1H XX Last administered on 06/18/16 20 :36; Admin Dose 1 EA; Start 06/16/16 at 17:30 Dextrose (D50w Syringe) 25 ml Q15M PRN IV Till BS 80 mg/dL or above x2 Last administered on 06/19/16 00:59; Admin Dose 25 ML; Start 06/16/16 at 17:30 Dextrose 50 ml 50 ml Q15M PRN IV Till BS 80 mg/dL or above x2 Last administered on 06/18/16 20:45; Admin Dose 50 ML; Start 06/16/16 at 17:30 Propofol (Diprivan) 100 ml @ 3.273 mls/ hr Q12H IV Last administered on 21:43; Admin Dose 6.546 MLS/HR; Start 06/16/16 at 17:30 Docusate Sodium 100 mg 100 mg BID PO Last administered on 06/18/16 08:37; Admin Dose 100 MG; Start 06/16/16 at 21:00 Levetiracetam 500 mg/Sodium Chloride 105 ml @ 420 mls/hr Q12 IVPB Last administered on 06/18/16 21:06; Admin Dose 420 MLS/HR; Start 06/16/16 at 21:00 Norepinephrine/ Dextrose (Levophed/D5W) 500 ml @ 1.87 mls/hr TITRATE IV Last administered on 06/18/16 01:59; Admin Dose 15 MLS/HR; Start 06/17/16 at 04:00 Acetaminophen (Tylenol Supp) 650 mg Q6H PRN [place] FEVER Last administered on 19:49; Admin Dose 650 MG; Start 06/16/16 at 22:00 Atorvastatin Calcium (Lipitor) 80 mg HS NGT Last administered on 06/18/16 21: 06; Admin Dose 80 MG; Start 06/17/16 at 21:00 Aspirin (Aspirin) 81 mg DAILY NGT Last administered on 06/18/16 08:37; Admin Dose 81 MG; Start 06/17/16 at 09:00 Clopidogrel Bisulfate (plaVIX) 75 mg DAILY NGT Last administered on 06/18/16 08:38; Admin Dose 75 MG; Start 06/17/16 at 09:00 Metoprolol Tartrate 25 mg 25 mg BID NGT Last administered on 06/18/16 21:06; Admin Dose 25 MG; Start 06/17/16 at 09:00 Midazolam HCl 50 ml @ 1 mls/hr TITRATE IV Last administered on 06/19/16 03:24 ; Admin Dose 4 MLS/HR; Start 06/17/16 at 10:30 Sodium Chloride (NS) 1,000 ml @ 80 mls/hr [id number] IV Last administered on 06/18 21:41; Admin Dose 80 MLS/HR; Start 06/17/16 at 15:00 Amiodarone HCl (Cordarone) 400 mg BID NGT Last administered on 06/18/16 02:17 ; Admin Dose 400 MG; Start 06/18/16 at 02:00; Status Future Hold Mupirocin 1 applic 1 applic BID TOP Last administered on 06/18/16 21:07; Admin Dose 1 APPLIC; Start 06/18/16 at 12:00 Piperacillin Sod/ Tazobactam Sod 100 ml @ 200 mls/hr Q8 IVPB Last administered on 06/19/16 06:02; Admin Dose 200 MLS/HR; Start 06/18/16 at 20:00 Dextrose/Sodium Chloride 1,000 ml @ 80 mls/hr [id number] IV Last administered on 06/19/16 02:04; Admin Dose 80 MLS/HR; Start 06/19/16 at 02:00 Vancomycin HCl 1.25 gm/Sodium Chloride 250 ml @ 83.333 mls/ hr Q8H IVPB ; Start 06/19/16 at 11:30 Potassium Phosphate/Sodium Chloride (K Phos (Mm)/NS) 255 ml @ 63.75 mls/ hr ONCE ONCE IVPB ; Start 06/19/16 at 07:30; Stop 06/19/16 at 11:29 GÉNESIS HARRIS MD Jun 19, 2016 07:18
[2016-06-19] MEDS ORDERED: POTASSIUM PHOSPHATE 15 MM in SOD CHLORIDE 0.9% 250 ML IVPB ONE (07:30)
--- NOTE | 2016-06-19 08:21 | RADRPT ---
PROCEDURE: XR Chest. CLINICAL INDICATION: Postop TECHNIQUE: A single AP view of the chest was obtained. COMPARISON: Chest x-ray dated 06/18/2016 FINDINGS: There are postoperative changes with sternotomy wires. The endotracheal tube tip is approximately 4 .6 cm above the georgette. There is right internal jugular Cordis catheter. The [place] catheter has been removed. The tip of the enteric tube extends below the left diaphragm. There is diffuse prominence of the interstitial markings. No pneumothorax is seen. The cardiomedias tinal silhouette is mildly enlarged. Calcifications are seen within the aortic arch. The osseous st ructures are unremarkable. IMPRESSION: 1. Low lung volumes with mild interstitial edema. Overall, no significant interval change. 2. Expected post cardiac surgery changes. 3. Mild cardiomegaly and aortic atherosclerosis. 4. Tubes and lines, as described above. RPTAT: HH .Lorna Pena MD, MD Date Time Electronically viewed and signed by .Lorna Pena MD, on 06/19/2016 08:21 .G/
[2016-06-19] MEDS: CLOPIDOGREL 75 MG TAB NGT SCH (09:04)
[2016-06-19] MEDS: DOCUSATE SODIUM 100 MG CAP PO SCH ×2 (09:04→21:10)
[2016-06-19] MEDS: ASPIRIN 81 MG TAB NGT SCH (09:04)
[2016-06-19] MEDS: METOPROLOL 25 MG TAB NGT SCH ×2 (09:05→21:12)
--- NOTE | 2016-06-19 09:10 | CONS ---
Date/Time of Note Date/Time of Note DATE: 06/19/16 TIME: 09:06 Assessment/Plan Assessment/Plan Additional Assessment/Plan Ventilator settings; AC of 16, tidal volume 500, PEEP of 5, 40% FiO2. Assessment and recommendations; 1. Patient admitted with acute STEMI , underwent emergent angiography, however lesions could not be stented , had to undergo emergent bypass surgery. 2. Hypotension with interval improvement. Patient off pressor support. Balloon pump also removed. 3. Possibly some element of aspiration pneumonia. However chest x-ray from today is markedly improved. With very minimal if any left lower lobe subsegmental atelectasis. Continue current supportive care. Stop sedation to assess mental status. When the patient is off sedative effect, he will be evaluated for possible weaning from ventilator. Consultation Date/Type/Reason Admit Date/Time Jun 16, 2016 at 17:32 Initial Consult Date 06/17/16 Type of Consultation: Pulmonary/critical care Referring Provider: BRICE MONTELONGO 24 HR Interval Summary Free Text/Dictation Patient condition remains critical. However he has improved hemodynamically. Off pressor support. Has remained in sinus rhythm. Currently sedated with a low-dose propofol drip. General examination; elderly male, orally intubated, sedated. Exam/Review of Systems Vital Signs Vitals Vital Signs Date Time Temp Pulse Resp B/P Pulse Ox O2 Delivery O2 Flow Rate FiO2 06/19/16 08:00 86 06/19/16 07:30 30 123/55 100 Mechanical Ventilator 06/19/16 04:48 40 06/19/16 04:00 99.2 06/16/16 11:06 2 Intake and Output 06/18/16 06/18/16 06/19/16 15:00 23:00 07:00 Intake Total 710.32 ml 1385.94 ml 1063.6 ml Output Total 716 ml 520 ml 470 ml Balance -5.68 ml 865.94 ml 593.6 ml Exam H EENT examination; supple neck, pupils are small bilaterally. Orally intubated. No neck masses. No thyromegaly. No lymphadenopathy. Midline trachea. Chest examination; clear to auscultation bilaterally. S1-S2 audible, no murmur. There is a dressing applied over the sternum. Chest tube is in place. Abdomen examination; soft, no organomegaly. Bowel sounds audible. Nondistended abdomen. Extremity examination; no peripheral edema. Pulses 1+ bilaterally. Patient does have chronic appearing skin changes in both lower extremities. HOUSEKEEPING/LAUNDRY examination; patient is sedated. Results Result Diagram: 06/19/16 0245 06/19/16 0245 Results 24 hrs Laboratory Tests Test 06/18/16 10:51 06/18/16 13:29 06/18/16 15:22 06/18/16 17:02 Bedside Glucose 98 116 97 84 Test 06/18/16 19:22 06/18/16 19:43 06/18/16 20:13 06/18/16 20:40 Bedside Glucose 76 60 L 48 *L Arterial Blood HCO3 22.1 Arterial Blood Base Excess -1.8 Arterial Blood Oxygen Saturation 98.2 H Kyle Test N/A Arterial Blood Gas Puncture Site A-Line Arterial Blood Carboxyhemoglobin 0.3 Arterial Blood Date Drawn 06/18/2016 7:15:00 PM Arterial Blood Methemoglobin 0.4 Arterial Blood pCO2 (Temp correct) 34.4 L Arterial Blood pH (Temp corrected) 7.425 Arterial Blood pO2 (Temp corrected) 122.1 H Blood Gas A-a O2 Differential 123.5 H Blood Gas Actual Respiration Rate 19 Blood Gas Low PEEP Setting 5.0 Blood Gas Modality VENT - AC Blood Gas Notified Time 06/18/2016 7:35:00 PM Blood Gas Notified Whom MA Blood Gas Respiration Rate 16.0 Blood Gas Specimen Source Blood arterial Blood Gas Temperature 37.0 Blood Gas Tidal Volume 500.0 FiO2 40.0 Oxyhemoglobin Percent 97.5 Total Hemoglobin 11.7 L Test 06/18/16 20:55 06/18/16 21:03 06/18/16 21:17 06/18/16 21:34 Anion Gap 9 Blood Urea Nitrogen 10 Calcium Level 7.1 L Carbon Dioxide Level 25 Chloride Level 103 Creatinine 0.70 Glucose Level 267 #H Magnesium Level 1.7 Phosphorus Level 3.1 Potassium Level 4.0 Sodium Level 133 L Bedside Glucose 105 117 113 Test 06/18/16 22:05 06/18/16 22:29 06/18/16 22:58 06/19/16 00:00 Bedside Glucose 77 98 106 77 Test 06/19/16 00:56 06/19/16 01:14 06/19/16 01:27 06/19/16 01:59 Bedside Glucose 65 L 121 96 102 Test 06/19/16 02:40 06/19/16 02:45 06/19/16 02:51 06/19/16 04:36 Vancomycin Level Trough 10.7 Albumin 2.3 L Anion Gap 8 Basophils # 0.0 Basophils % 0.1 Blood Urea Nitrogen 10 Calcium Level 7.5 L Carbon Dioxide Level 26 Chloride Level 105 Cholesterol Level 65 L Cholesterol/HDL Ratio 3.6 Creatine Kinase 803 H Creatinine 0.82 Eosinophils # 0.5 Eosinophils % 3.0 Glucose Level 121 # HDL Cholesterol 18 L Hematocrit 31.6 L Hemoglobin 10.3 L LDL Cholesterol, Calculated 30 Lymphocytes # 1.2 Lymphocytes % 7.0 L Magnesium Level 2.3 Mean Corpuscular Hemoglobin 29.6 Mean Corpuscular Hemoglobin Concent 32.6 Mean Corpuscular Volume 90.8 Mean Platelet Volume 10.7 H Monocytes # 1.4 H Monocytes % 8.2 Neutrophils # 13.7 H Neutrophils % 80.9 H Nucleated Red Blood Cells # 0.0 Nucleated Red Blood Cells % 0.0 Phosphorus Level 2.0 #L Platelet Count 125 L Potassium Level 4.3 Prealbumin 7.9 L Red Blood Count 3.48 L Red Cell Distribution Width 13.7 Sodium Level 135 Triglycerides Level 85 White Blood Count 16.9 H Bedside Glucose 114 101 Test 06/19/16 06:17 06/19/16 08:00 06/19/16 08:06 Bedside Glucose 96 102 Lactic Acid Level 0.9 Medications Medications Current Medications Hydromorphone HCl (Dilaudid) 0.2 mg Q15M PRN IV PAIN LEVEL 1-5 Last administered on 06/17/16 14:18; Admin Dose 0.2 MG; Start 06/16/16 at 17:30 Hydromorphone HCl (Dilaudid) 0.4 mg Q15M PRN IV PAIN LEVEL 6-10 Last administered on 06/18/16 04:35; Admin Dose 0.4 MG; Start 06/16/16 at 17:30 Oxycodone/ Acetaminophen (Percocet (5/ 325)) 1 tab Q3H PRN PO PAIN LEVEL 1-5; Start 06/16/16 at 17:30 Oxycodone/ Acetaminophen (Percocet (5/ 325)) 2 tab Q3H PRN PO PAIN LEVEL 6-10; Start 06/16/16 at 17:30 Ondansetron HCl (Zofran Inj) 4 mg Q6H PRN IV NAUSEA AND/OR VOMITING; Start at 17:30 Famotidine (Pepcid Iv) 20 mg BID@08,20 IV Last administered on 06/18/16 20:23 ; Admin Dose 20 MG; Start 06/16/16 at 20:00 Acetaminophen 650 mg 650 mg Q3H PRN PO ELEVATED TEMPERATURE Last administered on 06/18/16 10:40; Admin Dose 650 MG; Start 06/16/16 at 17:30 Magnesium Sulfate/ Dextrose (Magnesium Sulfate 1 Gm/D5W) 100 ml @ 100 mls/hr PRN PRN IVPB PENDING LAB VALUE Last administered on 06/17/16 19:38; Admin Dose 100 MLS/HR; Start 06/16/16 at 17:30 Diagnostic Test (Pha) (Accucheck) 1 ea Q1H XX Last administered on 06/18/16 20 :36; Admin Dose 1 EA; Start 06/16/16 at 17:30 Dextrose (D50w Syringe) 25 ml Q15M PRN IV Till BS 80 mg/dL or above x2 Last administered on 06/19/16 00:59; Admin Dose 25 ML; Start 06/16/16 at 17:30 Dextrose 50 ml 50 ml Q15M PRN IV Till BS 80 mg/dL or above x2 Last administered on 06/18/16 20:45; Admin Dose 50 ML; Start 06/16/16 at 17:30 Propofol (Diprivan) 100 ml @ 3.273 mls/ hr Q12H IV Last administered on 21:43; Admin Dose 6.546 MLS/HR; Start 06/16/16 at 17:30 Docusate Sodium 100 mg 100 mg BID PO Last administered on 06/18/16 08:37; Admin Dose 100 MG; Start 06/16/16 at 21:00 Levetiracetam 500 mg/Sodium Chloride 105 ml @ 420 mls/hr Q12 IVPB Last administered on 06/18/16 21:06; Admin Dose 420 MLS/HR; Start 06/16/16 at 21:00 Norepinephrine/ Dextrose (Levophed/D5W) 500 ml @ 1.87 mls/hr TITRATE IV Last administered on 06/18/16 01:59; Admin Dose 15 MLS/HR; Start 06/17/16 at 04:00 Acetaminophen (Tylenol Supp) 650 mg Q6H PRN [place] FEVER Last administered on 19:49; Admin Dose 650 MG; Start 06/16/16 at 22:00 Atorvastatin Calcium (Lipitor) 80 mg HS NGT Last administered on 06/18/16 21: 06; Admin Dose 80 MG; Start 06/17/16 at 21:00 Aspirin (Aspirin) 81 mg DAILY NGT Last administered on 06/18/16 08:37; Admin Dose 81 MG; Start 06/17/16 at 09:00 Clopidogrel Bisulfate (plaVIX) 75 mg DAILY NGT Last administered on 06/18/16 08:38; Admin Dose 75 MG; Start 06/17/16 at 09:00 Metoprolol Tartrate 25 mg 25 mg BID NGT Last administered on 06/18/16 21:06; Admin Dose 25 MG; Start 06/17/16 at 09:00 Midazolam HCl 50 ml @ 1 mls/hr TITRATE IV Last administered on 06/19/16 03:24 ; Admin Dose 4 MLS/HR; Start 06/17/16 at 10:30 Sodium Chloride (NS) 1,000 ml @ 80 mls/hr [id number] IV Last administered on 06/18 21:41; Admin Dose 80 MLS/HR; Start 06/17/16 at 15:00 Amiodarone HCl (Cordarone) 400 mg BID NGT Last administered on 06/18/16 02:17 ; Admin Dose 400 MG; Start 06/18/16 at 02:00; Status Future Hold Mupirocin 1 applic 1 applic BID TOP Last administered on 06/18/16 21:07; Admin Dose 1 APPLIC; Start 06/18/16 at 12:00 Piperacillin Sod/ Tazobactam Sod 100 ml @ 200 mls/hr Q8 IVPB Last administered on 06/19/16 06:02; Admin Dose 200 MLS/HR; Start 06/18/16 at 20:00 Dextrose/Sodium Chloride 1,000 ml @ 80 mls/hr [id number] IV Last administered on 06/19/16 02:04; Admin Dose 80 MLS/HR; Start 06/19/16 at 02:00 Vancomycin HCl 1.25 gm/Sodium Chloride 250 ml @ 83.333 mls/ hr Q8H IVPB ; Start 06/19/16 at 11:30 Potassium Phosphate/Sodium Chloride (K Phos (Mm)/NS) 255 ml @ 63.75 mls/ hr ONCE ONCE IVPB Last administered on 06/19/16t 07:36; Admin Dose 63.75 MLS/HR; Start 06/19/16 at 07:30; Stop 06/19/16 at 11:29 RICKY MAS Jun 19, 2016 09:10
[2016-06-19] MEDS ORDERED: ENOXAPARIN 60 MG/0.6 ML SYG SC SCH (10:00)
[2016-06-19] MEDS: FAMOTIDINE 20 MG INJ IV SCH ×2 (11:23→20:23)
[2016-06-19] MEDS: LEVETIRACETAM IV 500 MG in SOD CHLORIDE 0.9% 100 ML IVPB SCH ×2 (11:23→20:47)
[2016-06-19] MEDS: MUPIROCIN 2% 22 GM OINT TOP SCH ×2 (11:24→21:46)
[2016-06-19] MEDS ORDERED: VANCOMYCIN 1.25 GM in SOD CHLORIDE 0.9% 250 ML IVPB SCH (11:30)
--- NOTE | 2016-06-19 12:46 | PN ---
Date/Time of Note Date/Time of Note DATE: 06/19/16 TIME: 12:43 Assessment/Plan VTE Prophylaxis VTE Prophylaxis Intervention: SCD's Lines/Catheters IV C[facility]ter Type (from [facility] Urinary Cath still in place: Yes Reason Cath still needed: other (indicate) (intubated) Assessment/Plan Chief Complaint/Hosp Course Patient presents two days after discharge for SBO with a STEMI and VF arrest, has 3 vessel coronary disease and known cardiomyopathy, underwent emergent CABG. Problems: Assessment/Plan STEMI, s/p CABG postop day #3 Post op afib and aflutter, currently in NSR ischemic cardiomyopathy acute respiratory failure, for possible vent weaning Fever Recc: Continue asa, clopidogrel, statin, metoprolol Add bernard/arb if maintains stable blood pressure off pressors Finish IV amiodarone Postoperative care and vent weaning per surgical / critical care On empiric antibiotics Subjective 24 Hr Interval Summary Free Text/Dictation No events overnight, rhythm remains stable. Patient has been febrile. Subjective hx not possible: pt non-verbal Exam/Review of Systems Vital Signs Vitals Vital Signs Date Time Temp Pulse Resp B/P Pulse Ox O2 Delivery O2 Flow Rate FiO2 06/19/16 12:00 80 06/19/16 11:20 30 100 40 06/19/16 07:30 123/55 Mechanical Ventilator 06/19/16 04:00 99.2 06/16/16 11:06 2 Intake and Output 06/18/16 06/18/16 06/19/16 15:00 23:00 07:00 Intake Total 710.32 ml 1385.94 ml 1063.6 ml Output Total 716 ml 520 ml 470 ml Balance -5.68 ml 865.94 ml 593.6 ml Exam Constitutional: non-verbal Head: normocephalic ENMT: intubated Neck: No jvd Respiratory: clear to auscultation Cardiovascular: regular rate and rhythm, No jugular venous distention (JVD), No murmurs/extra sounds Gastrointestinal: soft Neurological: unresponsive Skin: nl turgor Results Result Diagram: 06/19/1624406/19/16 0245 Results 24 hrs Laboratory Tests Test 06/18/16 13:29 06/18/16 15:22 06/18/16 17:02 06/18/16 19:22 Bedside Glucose 116 97 84 76 Test 06/18/16 19:43 06/18/16 20:13 06/18/16 20:40 06/18/16 20:55 Arterial Blood HCO3 22.1 Arterial Blood Base Excess -1.8 Arterial Blood Oxygen Saturation 98.2 H Kyle Test N/A Arterial Blood Gas Puncture Site A-Line Arterial Blood Carboxyhemoglobin 0.3 Arterial Blood Date Drawn 06/18/2016 7:15:00 PM Arterial Blood Methemoglobin 0.4 Arterial Blood pCO2 (Temp correct) 34.4 L Arterial Blood pH (Temp corrected) 7.425 Arterial Blood pO2 (Temp corrected) 122.1 H Blood Gas A-a O2 Differential 123.5 H Blood Gas Actual Respiration Rate 19 Blood Gas Low PEEP Setting 5.0 Blood Gas Modality VENT - AC Blood Gas Notified Time 06/18/2016 7:35:00 PM Blood Gas Notified Whom MA Blood Gas Respiration Rate 16.0 Blood Gas Specimen Source Blood arterial Blood Gas Temperature 37.0 Blood Gas Tidal Volume 500.0 FiO2 40.0 Oxyhemoglobin Percent 97.5 Total Hemoglobin 11.7 L Bedside Glucose 60 L 48 *L Anion Gap 9 Blood Urea Nitrogen 10 Calcium Level 7.1 L Carbon Dioxide Level 25 Chloride Level 103 Creatinine 0.70 Glucose Level 267 #H Magnesium Level 1.7 Phosphorus Level 3.1 Potassium Level 4.0 Sodium Level 133 L Test 06/18/16 21:03 06/18/16 21:17 06/18/16 21:34 06/18/16 22:05 Bedside Glucose 105 117 113 77 Test 06/18/16 22:29 06/18/16 22:58 06/19/16 00:00 06/19/16 00:56 Bedside Glucose 98 106 77 65 L Test 06/19/16 01:14 06/19/16 01:27 06/19/16 01:59 06/19/16 02:40 Bedside Glucose 121 96 102 Vancomycin Level Trough 10.7 Test 06/19/16 02:45 06/19/16 02:51 06/19/16 04:36 06/19/16 06:17 Albumin 2.3 L Anion Gap 8 Basophils # 0.0 Basophils % 0.1 Blood Urea Nitrogen 10 Calcium Level 7.5 L Carbon Dioxide Level 26 Chloride Level 105 Cholesterol Level 65 L Cholesterol/HDL Ratio 3.6 Creatine Kinase 803 H Creatinine 0.82 Eosinophils # 0.5 Eosinophils % 3.0 Glucose Level 121 # HDL Cholesterol 18 L Hematocrit 31.6 L Hemoglobin 10.3 L LDL Cholesterol, Calculated 30 Lymphocytes # 1.2 Lymphocytes % 7.0 L Magnesium Level 2.3 Mean Corpuscular Hemoglobin 29.6 Mean Corpuscular Hemoglobin Concent 32.6 Mean Corpuscular Volume 90.8 Mean Platelet Volume 10.7 H Monocytes # 1.4 H Monocytes % 8.2 Neutrophils # 13.7 H Neutrophils % 80.9 H Nucleated Red Blood Cells # 0.0 Nucleated Red Blood Cells % 0.0 Phosphorus Level 2.0 #L Platelet Count 125 L Potassium Level 4.3 Prealbumin 7.9 L Red Blood Count 3.48 L Red Cell Distribution Width 13.7 Sodium Level 135 Triglycerides Level 85 White Blood Count 16.9 H Bedside Glucose 114 101 96 Test 06/19/16 08:00 06/19/16 08:06 06/19/16 11:15 Lactic Acid Level 0.9 Bedside Glucose 102 122 Medications Medications Current Medications Hydromorphone HCl (Dilaudid) 0.2 mg Q15M PRN IV PAIN LEVEL 1-5 Last administered on 06/17/16 14:18; Admin Dose 0.2 MG; Start 06/16/16 at 17:30 Hydromorphone HCl (Dilaudid) 0.4 mg Q15M PRN IV PAIN LEVEL 6-10 Last administered on 06/18/16 04:35; Admin Dose 0.4 MG; Start 06/16/16 at 17:30 Oxycodone/ Acetaminophen (Percocet (5/ 325)) 1 tab Q3H PRN PO PAIN LEVEL 1-5; Start 06/16/16 at 17:30 Oxycodone/ Acetaminophen (Percocet (5/ 325)) 2 tab Q3H PRN PO PAIN LEVEL 6-10; Start 06/16/16 at 17:30 Ondansetron HCl (Zofran Inj) 4 mg Q6H PRN IV NAUSEA AND/OR VOMITING; Start at 17:30 Famotidine (Pepcid Iv) 20 mg BID@08,20 IV Last administered on 06/19/16 11:23 ; Admin Dose 20 MG; Start 06/16/16 at 20:00 Acetaminophen 650 mg 650 mg Q3H PRN PO ELEVATED TEMPERATURE Last administered on 06/18/16 10:40; Admin Dose 650 MG; Start 06/16/16 at 17:30 Magnesium Sulfate/ Dextrose (Magnesium Sulfate 1 Gm/D5W) 100 ml @ 100 mls/hr PRN PRN IVPB PENDING LAB VALUE Last administered on 06/17/16 19:38; Admin Dose 100 MLS/HR; Start 06/16/16 at 17:30 Dextrose (D50w Syringe) 25 ml Q15M PRN IV Till BS 80 mg/dL or above x2 Last administered on 06/19/16 00:59; Admin Dose 25 ML; Start 06/16/16 at 17:30 Dextrose 50 ml 50 ml Q15M PRN IV Till BS 80 mg/dL or above x2 Last administered on 06/18/16 20:45; Admin Dose 50 ML; Start 06/16/16 at 17:30 Propofol (Diprivan) 100 ml @ 3.273 mls/ hr Q12H IV Last administered on 21:43; Admin Dose 6.546 MLS/HR; Start 06/16/16 at 17:30 Docusate Sodium 100 mg 100 mg BID PO Last administered on 06/19/16 09:04; Admin Dose 100 MG; Start 06/16/16 at 21:00 Levetiracetam 500 mg/Sodium Chloride 105 ml @ 420 mls/hr Q12 IVPB Last administered on 06/19/16 11:23; Admin Dose 420 MLS/HR; Start 06/16/16 at 21:00 Norepinephrine/ Dextrose (Levophed/D5W) 500 ml @ 1.87 mls/hr TITRATE IV Last administered on 06/18/16 01:59; Admin Dose 15 MLS/HR; Start 06/17/16 at 04:00 Acetaminophen (Tylenol Supp) 650 mg Q6H PRN ID FEVER Last administered on 19:49; Admin Dose 650 MG; Start 06/16/16 at 22:00 Atorvastatin Calcium (Lipitor) 80 mg HS NGT Last administered on 06/18/16 21: 06; Admin Dose 80 MG; Start 06/17/16 at 21:00 Aspirin (Aspirin) 81 mg DAILY NGT Last administered on 06/19/16 09:04; Admin Dose 81 MG; Start 06/17/16 at 09:00 Clopidogrel Bisulfate (plaVIX) 75 mg DAILY NGT Last administered on 06/19/16 09:04; Admin Dose 75 MG; Start 06/17/16 at 09:00 Metoprolol Tartrate 25 mg 25 mg BID NGT Last administered on 06/19/16 09:05; Admin Dose 25 MG; Start 06/17/16 at 09:00 Midazolam HCl 50 ml @ 1 mls/hr TITRATE IV Last administered on 06/19/16 03:24 ; Admin Dose 4 MLS/HR; Start 06/17/16 at 10:30 Sodium Chloride (NS) 1,000 ml @ 80 mls/hr [id number] IV Last administered on 06/18 21:41; Admin Dose 80 MLS/HR; Start 06/17/16 at 15:00 Amiodarone HCl (Cordarone) 400 mg BID NGT Last administered on 06/18/16 02:17 ; Admin Dose 400 MG; Start 06/18/16 at 02:00; Status Future Hold Mupirocin 1 applic 1 applic BID TOP Last administered on 06/19/16 11:24; Admin Dose 1 APPLIC; Start 06/18/16 at 12:00 Piperacillin Sod/ Tazobactam Sod 100 ml @ 200 mls/hr Q8 IVPB Last administered on 06/19/16 06:02; Admin Dose 200 MLS/HR; Start 06/18/16 at 20:00 Dextrose/Sodium Chloride 1,000 ml @ 80 mls/hr [id number] IV Last administered on 06/19/16 02:04; Admin Dose 80 MLS/HR; Start 06/19/16 at 02:00 Vancomycin HCl/ Sodium Chloride (Vancocin/NS) 250 ml @ 83.333 mls/ hr Q8H IVPB ; Start 06/19/16 at 11:30 Enoxaparin Sodium (Lovenox) 60 mg DAILY SC Last administered on 06/19/16 11:29 ; Admin Dose 60 MG; Start 06/19/16 at 10:00 Insulin Aspart (Novolog Insulin Pen) NOVOLOG *MILD* ALGORI... Q4 SC ; Start at 13:00; Status UNV Miscellaneous Information (* Miscellaneous Pharmacy Order) HYPOGLYCEMIA PROTOCOL w... ONCE ONCE XX ; Start 06/19/16 at 12:30; Stop 06/19/16 at 12:31; Status UNV Miscellaneous Information (* Miscellaneous Pharmacy Order) Discontinue Glyburide , Glipizide,... ONCE ONCE XX ; Start 06/19/16 at 12:30; Stop 06/19/16 at 12:31 ; Status UNV Miscellaneous Information (* Miscellaneous Pharmacy Order) 1 ea ONCE ONCE XX ; Start 06/19/16 at 12:30; Stop 06/19/16 at 12:31; Status UNV BAM BERTRAND Jun 19, 2016 12:46
--- NOTE | 2016-06-19 12:54 | CONS ---
Date/Time of Note Date/Time of Note DATE: 06/19/16 TIME: 12:49 Assessment/Plan Assessment/Plan Chief Complaint/Hosp Course 1. Severe sepsis vs SIRS - postop fever resolving and leukocytosis downward trending (no obvious infiltrate seen on x-ray; lactic acid WNL; tee cx negative to date) 2. STEMI s/p emergent CABG 06/16/16 (Pt presented with CP two days after being discharged from [facility] for SBO) 3. Cardiogenic shock; s/p IABP and pressors 4. S/p Vfib arrest x2 on 06/16/16 5. Severe 3V CAD 6. Postop afib and aflutter - currently in NSR 7. 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 Methamphetamine user per + urine tox screen 9. Post op respiratory failure - for possible vent weaning 10. Postop anemia 11. Thrombocytopenia 12. Moderate to severe protein calorie malnutrition 13. MRSA nasal colonization 14. Obesity 15. Hx recent SBO 06/10/16 - treated medically 16. Hx Large basal cell carcinoma of the upper mid back s/p excision 08/17/14 17. Hx back wound infection with MSSA, Enterobacter Cloacae, Klebsiella Oxytoca , Corynebacter Jeikeium Grp JK 09/16/14 18. Hx repair of a large ventral incisional hernia in [facility] in 2009. Recommendations: - Continue Vanco (06/16/16) and Pip/tazo (06/18/16) - Consideration of changing to Imipenem if fails to improve - F/u final blood, urine and respiratory cx (all negative to date) - F/u procalc (pending) - Continue bactroban; contact isolation for MRSA - Above d/w Dr. Myles - Critical care time spent: 55 minutes Problems: Consultation Date/Type/Reason Admit Date/Time Jun 16, 2016 at 17:32 Initial Consult Date 06/18/16 Type of Consultation: Infectiou Disease Referring Provider: BRICE MONTELONGO 24 HR Interval Summary Free Text/Dictation Off pressor support and sedation turned off this AM per NISHI Bailey. Pt non-communicative. Subjective hx not possible: pt critical status Exam/Review of Systems Vital Signs Vitals Vital Signs Date Time Temp Pulse Resp B/P Pulse Ox O2 Delivery O2 Flow Rate FiO2 2/24/17 12:00 80 06/19/16 11:20 30 100 40 06/19/16 07:30 123/55 Mechanical Ventilator 06/19/16 04:00 99.2 06/16/16 11:06 2 Intake and Output 06/18/16 06/18/16 06/19/16 15:00 23:00 07:00 Intake Total 710.32 ml 1385.94 ml 1063.6 ml Output Total 716 ml 520 ml 470 ml Balance -5.68 ml 865.94 ml 593.6 ml Exam Constitutional: obese, other (Orally intubated), well developed Head: atraumatic, normocephalic Neck: other (Right IJ central line c/d/i), supple Respiratory: clear to auscultation, other (chest tube intact without leak) Cardiovascular: other (sternal dressing c/d/i), regular rate and rhythm Gastrointestinal: bowel sounds, other (NGT clamped and intact), soft Genitourinary - Male: other (Solis cath intact) Extremities: No cyanosis, No edema Neurological: other (Sedated with sedation recently discontinued; Moves BLE weakly; no commands) Skin: other (Right groin dressing and left groin derma ibarra intact; BLE hyperpigmentation noted) Results Result Diagram: 06/19/1624406/19/16 024 Results 24 hrs Laboratory Tests Test 06/18/16 13:29 06/18/16 15:22 06/18/16 17:02 06/18/16 19:22 Bedside Glucose 116 97 84 76 Test 06/18/16 19:43 06/18/16 20:13 06/18/16 20:40 06/18/16 20:55 Arterial Blood HCO3 22.1 Arterial Blood Base Excess -1.8 Arterial Blood Oxygen Saturation 98.2 H Kyle Test N/A Arterial Blood Gas Puncture Site A-Line Arterial Blood Carboxyhemoglobin 0.3 Arterial Blood Date Drawn 06/18/2016 7:15:00 PM Arterial Blood Methemoglobin 0.4 Arterial Blood pCO2 (Temp correct) 34.4 L Arterial Blood pH (Temp corrected) 7.425 Arterial Blood pO2 (Temp corrected) 122.1 H Blood Gas A-a O2 Differential 123.5 H Blood Gas Actual Respiration Rate 19 Blood Gas Low PEEP Setting 5.0 Blood Gas Modality VENT - AC Blood Gas Notified Time 06/18/2016 7:35:00 PM Blood Gas Notified Whom HELENA Blood Gas Respiration Rate 16.0 Blood Gas Specimen Source Blood arterial Blood Gas Temperature 37.0 Blood Gas Tidal Volume 500.0 FiO2 40.0 Oxyhemoglobin Percent 97.5 Total Hemoglobin 11.7 L Bedside Glucose 60 L 48 *L Anion Gap 9 Blood Urea Nitrogen 10 Calcium Level 7.1 L Carbon Dioxide Level 25 Chloride Level 103 Creatinine 0.70 Glucose Level 267 #H Magnesium Level 1.7 Phosphorus Level 3.1 Potassium Level 4.0 Sodium Level 133 L Test 06/18/16 21:03 06/18/16 21:17 06/18/16 21:34 06/18/16 22:05 Bedside Glucose 105 117 113 77 Test 06/18/16 22:29 06/18/16 22:58 06/19/16 00:00 06/19/16 00:56 Bedside Glucose 98 106 77 65 L Test 06/19/16 01:14 06/19/16 01:27 06/19/16 01:59 06/19/16 02:40 Bedside Glucose 121 96 102 Vancomycin Level Trough 10.7 Test 06/19/16 02:45 06/19/16 02:51 06/19/16 04:36 06/19/16 06:17 Albumin 2.3 L Anion Gap 8 Basophils # 0.0 Basophils % 0.1 Blood Urea Nitrogen 10 Calcium Level 7.5 L Carbon Dioxide Level 26 Chloride Level 105 Cholesterol Level 65 L Cholesterol/HDL Ratio 3.6 Creatine Kinase 803 H Creatinine 0.82 Eosinophils # 0.5 Eosinophils % 3.0 Glucose Level 121 # HDL Cholesterol 18 L Hematocrit 31.6 L Hemoglobin 10.3 L LDL Cholesterol, Calculated 30 Lymphocytes # 1.2 Lymphocytes % 7.0 L Magnesium Level 2.3 Mean Corpuscular Hemoglobin 29.6 Mean Corpuscular Hemoglobin Concent 32.6 Mean Corpuscular Volume 90.8 Mean Platelet Volume 10.7 H Monocytes # 1.4 H Monocytes % 8.2 Neutrophils # 13.7 H Neutrophils % 80.9 H Nucleated Red Blood Cells # 0.0 Nucleated Red Blood Cells % 0.0 Phosphorus Level 2.0 #L Platelet Count 125 L Potassium Level 4.3 Prealbumin 7.9 L Red Blood Count 3.48 L Red Cell Distribution Width 13.7 Sodium Level 135 Triglycerides Level 85 White Blood Count 16.9 H Bedside Glucose 114 101 96 Test 06/19/16 08:00 06/19/16 08:06 06/19/16 11:15 Lactic Acid Level 0.9 Bedside Glucose 102 122 Medications Medications Current Medications Hydromorphone HCl (Dilaudid) 0.2 mg Q15M PRN IV PAIN LEVEL 1-5 Last administered on 06/17/16 14:18; Admin Dose 0.2 MG; Start 06/16/16 at 17:30 Hydromorphone HCl (Dilaudid) 0.4 mg Q15M PRN IV PAIN LEVEL 6-10 Last administered on 06/18/16 04:35; Admin Dose 0.4 MG; Start 06/16/16 at 17:30 Oxycodone/ Acetaminophen (Percocet (5/ 325)) 1 tab Q3H PRN PO PAIN LEVEL 1-5; Start 06/16/16 at 17:30 Oxycodone/ Acetaminophen (Percocet (5/ 325)) 2 tab Q3H PRN PO PAIN LEVEL 6-10; Start 06/16/16 at 17:30 Ondansetron HCl (Zofran Inj) 4 mg Q6H PRN IV NAUSEA AND/OR VOMITING; Start at 17:30 Famotidine (Pepcid Iv) 20 mg BID@08,20 IV Last administered on 06/19/16 11:23 ; Admin Dose 20 MG; Start 06/16/16 at 20:00 Acetaminophen 650 mg 650 mg Q3H PRN PO ELEVATED TEMPERATURE Last administered on 06/18/16 10:40; Admin Dose 650 MG; Start 06/16/16 at 17:30 Magnesium Sulfate/ Dextrose (Magnesium Sulfate 1 Gm/D5W) 100 ml @ 100 mls/hr PRN PRN IVPB PENDING LAB VALUE Last administered on 06/17/16 19:38; Admin Dose 100 MLS/HR; Start 06/16/16 at 17:30 Dextrose (D50w Syringe) 25 ml Q15M PRN IV Till BS 80 mg/dL or above x2 Last administered on 06/19/16 00:59; Admin Dose 25 ML; Start 06/16/16 at 17:30 Dextrose 50 ml 50 ml Q15M PRN IV Till BS 80 mg/dL or above x2 Last administered on 06/18/16 20:45; Admin Dose 50 ML; Start 06/16/16 at 17:30 Propofol (Diprivan) 100 ml @ 3.273 mls/ hr Q12H IV Last administered on 21:43; Admin Dose 6.546 MLS/HR; Start 06/16/16 at 17:30 Docusate Sodium 100 mg 100 mg BID PO Last administered on 06/19/16 09:04; Admin Dose 100 MG; Start 06/16/16 at 21:00 Levetiracetam 500 mg/Sodium Chloride 105 ml @ 420 mls/hr Q12 IVPB Last administered on 06/19/16 11:23; Admin Dose 420 MLS/HR; Start 06/16/16 at 21:00 Norepinephrine/ Dextrose (Levophed/D5W) 500 ml @ 1.87 mls/hr TITRATE IV Last administered on 06/18/16 01:59; Admin Dose 15 MLS/HR; Start 06/17/16 at 04:00 Acetaminophen (Tylenol Supp) 650 mg Q6H PRN FL FEVER Last administered on 19:49; Admin Dose 650 MG; Start 06/16/16 at 22:00 Atorvastatin Calcium (Lipitor) 80 mg HS NGT Last administered on 06/18/16 21: 06; Admin Dose 80 MG; Start 06/17/16 at 21:00 Aspirin (Aspirin) 81 mg DAILY NGT Last administered on 06/19/16 09:04; Admin Dose 81 MG; Start 06/17/16 at 09:00 Clopidogrel Bisulfate (plaVIX) 75 mg DAILY NGT Last administered on 06/19/16 09:04; Admin Dose 75 MG; Start 06/17/16 at 09:00 Metoprolol Tartrate 25 mg 25 mg BID NGT Last administered on 06/19/16 09:05; Admin Dose 25 MG; Start 06/17/16 at 09:00 Midazolam HCl 50 ml @ 1 mls/hr TITRATE IV Last administered on 06/19/16 03:24 ; Admin Dose 4 MLS/HR; Start 06/17/16 at 10:30 Sodium Chloride (NS) 1,000 ml @ 80 mls/hr [id number] IV Last administered on 06/18 21:41; Admin Dose 80 MLS/HR; Start 06/17/16 at 15:00 Amiodarone HCl (Cordarone) 400 mg BID NGT Last administered on 06/18/16 02:17 ; Admin Dose 400 MG; Start 06/18/16 at 02:00; Status Future Hold Mupirocin 1 applic 1 applic BID TOP Last administered on 06/19/16 11:24; Admin Dose 1 APPLIC; Start 06/18/16 at 12:00 Piperacillin Sod/ Tazobactam Sod 100 ml @ 200 mls/hr Q8 IVPB Last administered on 06/19/16 06:02; Admin Dose 200 MLS/HR; Start 06/18/16 at 20:00 Dextrose/Sodium Chloride 1,000 ml @ 80 mls/hr [id number] IV Last administered on 06/19/16 02:04; Admin Dose 80 MLS/HR; Start 06/19/16 at 02:00 Vancomycin HCl/ Sodium Chloride (Vancocin/NS) 250 ml @ 83.333 mls/ hr Q8H IVPB ; Start 06/19/16 at 11:30 Insulin Aspart (Novolog Insulin Pen) NOVOLOG *MILD* ALGORI... Q4 SC ; Start at 13:00 Miscellaneous Information 1 ea NOTE XX ; Start 06/19/16 at 13:00 Glucose (Glutose) 15 gm Q15M PRN PO DECREASED GLUCOSE; Start 06/19/16 at 13:00 Glucose (Glutose) 22.5 gm Q15M PRN PO DECREASED GLUCOSE; Start 06/19/16 at 13: 00 Dextrose (D50w Syringe) 25 ml Q15M PRN IV DECREASED GLUCOSE; Start 06/19/16 at 13:00 Dextrose (D50w Syringe) 50 ml Q15M PRN IV DECREASED GLUCOSE; Start 06/19/16 at 13:00 Glucagon (Glucagen) 1 mg Q15M PRN IM DECREASED GLUCOSE; Start 06/19/16 at 13:00 Glucose (Glutose) 15 gm Q15M PRN BUCCAL DECREASED GLUCOSE; Start 06/19/16 at 13 :00 Enoxaparin Sodium (Lovenox) 60 mg AM SC ; Start 06/20/16 at 09:00 Procedures Procedures CXR 06/19/16: 1. Low lung volumes with mild interstitial edema. Overall, no significant interval change. 2. Expected post cardiac surgery changes. 3. Mild cardiomegaly and aortic atherosclerosis. 4. Tubes and lines, as described above. TTE 06/10/16: 1. Technically difficult study due to poor endocardial visualization. 2. Normal left ventricular cavity size. Mild concentric left ventricular hypertrophy. Mild left ventricular systolic dysfunction. Ejection fraction is visually estimated at 45 %. Stage I diastolic dysfunction. Poor endocardial visualization but there appears to be hypokinesis of the distal septum and apex. 3. No significant valvular stenosis or regurgitation seen. 4. Unable to obtain RVSP due to minimal presence of tricuspid regurgitation. RA pressure is 3 mmHg. PENELOPE GOMEZ NP Jun 19, 2016 12:54
[2016-06-19] MEDS ORDERED: GLUCAGON 1 MG INJ IM PRN (13:00)
[2016-06-19] MEDS: INSULIN ASPART [NOVOLOG] 3 ML PEN SC SCH ×3 (13:00→21:00)
[2016-06-19] MEDS ORDERED: GLUCOSE GEL 15 GRAM TUBE BUCCAL PRN (13:00)
[2016-06-19] MEDS ORDERED: GLUCOSE GEL 15 GRAM TUBE PO PRN ×2 (13:00)
[2016-06-19] MEDS ORDERED: DEXTROSE 50% 50 ML SYRINGE IV PRN ×2 (13:00)
--- NOTE | 2016-06-19 13:30 | CONS ---
Date/Time of Note Date/Time of Note DATE: 06/19/16 TIME: 13:30 Assessment/Plan Assessment/Plan Chief Complaint/Hosp Course Case d/w KESHAWN Diego. EMR reviewed. plan coordinated. Problems: Consultation Date/Type/Reason Admit Date/Time Jun 16, 2016 at 17:32 Initial Consult Date 06/17/16 Type of Consultation: Infectiou Disease Referring Provider: BRICE MONTELONGO Exam/Review of Systems Vital Signs Vitals Vital Signs Date Time Temp Pulse Resp B/P Pulse Ox O2 Delivery O2 Flow Rate FiO2 06/19/16 12:00 80 06/19/16 11:20 30 100 40 06/19/16 07:30 123/55 Mechanical Ventilator 06/19/16 04:00 99.2 06/16/16 11:06 2 Intake and Output 06/18/16 06/18/16 06/19/16 15:00 23:00 07:00 Intake Total 710.32 ml 1385.94 ml 1063.6 ml Output Total 716 ml 520 ml 470 ml Balance -5.68 ml 865.94 ml 593.6 ml Results Result Diagram: 06/19/16 0245 06/19/16 0245 Results 24 hrs Laboratory Tests Test 06/18/16 15:22 06/18/16 17:02 06/18/16 19:22 06/18/16 19:43 Bedside Glucose 97 84 76 Arterial Blood HCO3 22.1 Arterial Blood Base Excess -1.8 Arterial Blood Oxygen Saturation 98.2 H Kyle Test N/A Arterial Blood Gas Puncture Site A-Line Arterial Blood Carboxyhemoglobin 0.3 Arterial Blood Date Drawn 06/18/2016 7:15:00 PM Arterial Blood Methemoglobin 0.4 Arterial Blood pCO2 (Temp correct) 34.4 L Arterial Blood pH (Temp corrected) 7.425 Arterial Blood pO2 (Temp corrected) 122.1 H Blood Gas A-a O2 Differential 123.5 H Blood Gas Actual Respiration Rate 19 Blood Gas Low PEEP Setting 5.0 Blood Gas Modality VENT - AC Blood Gas Notified Time 06/18/2016 7:35:00 PM Blood Gas Notified Whom MA Blood Gas Respiration Rate 16.0 Blood Gas Specimen Source Blood arterial Blood Gas Temperature 37.0 Blood Gas Tidal Volume 500.0 FiO2 40.0 Oxyhemoglobin Percent 97.5 Total Hemoglobin 11.7 L Test 06/18/16 20:13 06/18/16 20:40 06/18/16 20:55 06/18/16 21:03 Bedside Glucose 60 L 48 *L 105 Anion Gap 9 Blood Urea Nitrogen 10 Calcium Level 7.1 L Carbon Dioxide Level 25 Chloride Level 103 Creatinine 0.70 Glucose Level 267 #H Magnesium Level 1.7 Phosphorus Level 3.1 Potassium Level 4.0 Sodium Level 133 L Test 06/18/16 21:17 06/18/16 21:34 06/18/16 22:05 06/18/16 22:29 Bedside Glucose 117 113 77 98 Test 06/18/16 22:58 06/19/16 00:00 06/19/16 00:56 06/19/16 01:14 Bedside Glucose 106 77 65 L 121 Test 06/19/16 01:27 06/19/16 01:59 06/19/16 02:40 06/19/16 02:45 Bedside Glucose 96 102 Vancomycin Level Trough 10.7 Albumin 2.3 L Anion Gap 8 Basophils # 0.0 Basophils % 0.1 Blood Urea Nitrogen 10 Calcium Level 7.5 L Carbon Dioxide Level 26 Chloride Level 105 Cholesterol Level 65 L Cholesterol/HDL Ratio 3.6 Creatine Kinase 803 H Creatinine 0.82 Eosinophils # 0.5 Eosinophils % 3.0 Glucose Level 121 # HDL Cholesterol 18 L Hematocrit 31.6 L Hemoglobin 10.3 L LDL Cholesterol, Calculated 30 Lymphocytes # 1.2 Lymphocytes % 7.0 L Magnesium Level 2.3 Mean Corpuscular Hemoglobin 29.6 Mean Corpuscular Hemoglobin Concent 32.6 Mean Corpuscular Volume 90.8 Mean Platelet Volume 10.7 H Monocytes # 1.4 H Monocytes % 8.2 Neutrophils # 13.7 H Neutrophils % 80.9 H Nucleated Red Blood Cells # 0.0 Nucleated Red Blood Cells % 0.0 Phosphorus Level 2.0 #L Platelet Count 125 L Potassium Level 4.3 Prealbumin 7.9 L Red Blood Count 3.48 L Red Cell Distribution Width 13.7 Sodium Level 135 Triglycerides Level 85 White Blood Count 16.9 H Test 06/19/16 02:51 06/19/16 04:36 06/19/16 06:17 06/19/16 08:00 Bedside Glucose 114 101 96 Lactic Acid Level 0.9 Test 06/19/16 08:06 06/19/16 11:15 Bedside Glucose 102 122 Medications Medications Current Medications Hydromorphone HCl (Dilaudid) 0.2 mg Q15M PRN IV PAIN LEVEL 1-5 Last administered on 06/17/16 14:18; Admin Dose 0.2 MG; Start 06/16/16 at 17:30 Hydromorphone HCl (Dilaudid) 0.4 mg Q15M PRN IV PAIN LEVEL 6-10 Last administered on 06/18/16 04:35; Admin Dose 0.4 MG; Start 06/16/16 at 17:30 Oxycodone/ Acetaminophen (Percocet (5/ 325)) 1 tab Q3H PRN PO PAIN LEVEL 1-5; Start 06/16/16 at 17:30 Oxycodone/ Acetaminophen (Percocet (5/ 325)) 2 tab Q3H PRN PO PAIN LEVEL 6-10; Start 06/16/16 at 17:30 Ondansetron HCl (Zofran Inj) 4 mg Q6H PRN IV NAUSEA AND/OR VOMITING; Start at 17:30 Famotidine (Pepcid Iv) 20 mg BID@08,20 IV Last administered on 06/19/16 11:23 ; Admin Dose 20 MG; Start 06/16/16 at 20:00 Acetaminophen 650 mg 650 mg Q3H PRN PO ELEVATED TEMPERATURE Last administered on 06/18/16 10:40; Admin Dose 650 MG; Start 06/16/16 at 17:30 Magnesium Sulfate/ Dextrose (Magnesium Sulfate 1 Gm/D5W) 100 ml @ 100 mls/hr PRN PRN IVPB PENDING LAB VALUE Last administered on 06/17/16 19:38; Admin Dose 100 MLS/HR; Start 06/16/16 at 17:30 Dextrose (D50w Syringe) 25 ml Q15M PRN IV Till BS 80 mg/dL or above x2 Last administered on 06/19/16 00:59; Admin Dose 25 ML; Start 06/16/16 at 17:30 Dextrose 50 ml 50 ml Q15M PRN IV Till BS 80 mg/dL or above x2 Last administered on 06/18/16 20:45; Admin Dose 50 ML; Start 06/16/16 at 17:30 Propofol (Diprivan) 100 ml @ 3.273 mls/ hr Q12H IV Last administered on 21:43; Admin Dose 6.546 MLS/HR; Start 06/16/16 at 17:30 Docusate Sodium 100 mg 100 mg BID PO Last administered on 06/19/16 09:04; Admin Dose 100 MG; Start 06/16/16 at 21:00 Levetiracetam 500 mg/Sodium Chloride 105 ml @ 420 mls/hr Q12 IVPB Last administered on 06/19/16 11:23; Admin Dose 420 MLS/HR; Start 06/16/16 at 21:00 Norepinephrine/ Dextrose (Levophed/D5W) 500 ml @ 1.87 mls/hr TITRATE IV Last administered on 06/18/16 01:59; Admin Dose 15 MLS/HR; Start 06/17/16 at 04:00 Acetaminophen (Tylenol Supp) 650 mg Q6H PRN [place] FEVER Last administered on 19:49; Admin Dose 650 MG; Start 06/16/16 at 22:00 Atorvastatin Calcium (Lipitor) 80 mg HS NGT Last administered on 06/18/16 21: 06; Admin Dose 80 MG; Start 06/17/16 at 21:00 Aspirin (Aspirin) 81 mg DAILY NGT Last administered on 06/19/16 09:04; Admin Dose 81 MG; Start 06/17/16 at 09:00 Clopidogrel Bisulfate (plaVIX) 75 mg DAILY NGT Last administered on 06/19/16 09:04; Admin Dose 75 MG; Start 06/17/16 at 09:00 Metoprolol Tartrate 25 mg 25 mg BID NGT Last administered on 06/19/16 09:05; Admin Dose 25 MG; Start 06/17/16 at 09:00 Midazolam HCl 50 ml @ 1 mls/hr TITRATE IV Last administered on 06/19/16 03:24 ; Admin Dose 4 MLS/HR; Start 06/17/16 at 10:30 Sodium Chloride (NS) 1,000 ml @ 80 mls/hr [id number] IV Last administered on 06/18 21:41; Admin Dose 80 MLS/HR; Start 06/17/16 at 15:00 Amiodarone HCl (Cordarone) 400 mg BID NGT Last administered on 06/18/16 02:17 ; Admin Dose 400 MG; Start 06/18/16 at 02:00; Status Future Hold Mupirocin 1 applic 1 applic BID TOP Last administered on 06/19/16 11:24; Admin Dose 1 APPLIC; Start 06/18/16 at 12:00 Piperacillin Sod/ Tazobactam Sod 100 ml @ 200 mls/hr Q8 IVPB Last administered on 06/19/16 06:02; Admin Dose 200 MLS/HR; Start 06/18/16 at 20:00 Dextrose/Sodium Chloride 1,000 ml @ 80 mls/hr [id number] IV Last administered on 06/19/16 02:04; Admin Dose 80 MLS/HR; Start 06/19/16 at 02:00 Vancomycin HCl/ Sodium Chloride (Vancocin/NS) 250 ml @ 83.333 mls/ hr Q8H IVPB Last administered on 06/19/16 13:09; Admin Dose 83.333 MLS/HR; Start at 11:30 Insulin Aspart (Novolog Insulin Pen) NOVOLOG *MILD* ALGORI... Q4 SC ; Start at 13:00 Miscellaneous Information 1 ea NOTE XX ; Start 06/19/16 at 13:00 Glucose (Glutose) 15 gm Q15M PRN PO DECREASED GLUCOSE; Start 06/19/16 at 13:00 Glucose (Glutose) 22.5 gm Q15M PRN PO DECREASED GLUCOSE; Start 06/19/16 at 13: 00 Dextrose (D50w Syringe) 25 ml Q15M PRN IV DECREASED GLUCOSE; Start 06/19/16 at 13:00 Dextrose (D50w Syringe) 50 ml Q15M PRN IV DECREASED GLUCOSE; Start 06/19/16 at 13:00 Glucagon (Glucagen) 1 mg Q15M PRN IM DECREASED GLUCOSE; Start 06/19/16 at 13:00 Glucose (Glutose) 15 gm Q15M PRN BUCCAL DECREASED GLUCOSE; Start 06/19/16 at 13 :00 Enoxaparin Sodium (Lovenox) 60 mg AM SC ; Start 06/20/16 at 09:00 GÉNESIS HARRIS MD Jun 19, 2016 13:30
--- NOTE | 2016-06-19 14:32 | PN ---
Date/Time of Note Date/Time of Note DATE: 06/19/16 TIME: 14:21 Assessment/Plan VTE Prophylaxis VTE Prophylaxis Intervention: LMWH, SCD's Lines/Catheters IV Catheter Type (from Nrs): Cordis Urinary Cath still in place: Yes Reason Cath still needed: other (indicate) Assessment/Plan Assessment/Plan A 61-year-old male managed as follows: 1. Severe Coronary artery disease, status post inferior wall ST elevation myocardial infarction that was not amenable to angiographic repair, status post emergent coronary artery bypass surgery, 4-vessel repair. 2. Acute respiratory failure, now ventilator dependent secondary to #2. 3. Status post Vfib arrest x2 with return of spontaneous circulation both times. 4. 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 5. History of vertigo. 6. Obesity. 7. Methamphetamine user 8. Severe SIRS versus Sepsis * ?Developing LLL pneumonia on CXR 9. Shock likely Cardiogenic r/o Septic 10. Severe Rhabdomyolysis: improving 11. MRSA nares 12. Dyslipidemia PLAN: * Continue ICU mgt /Continue empiric broad spectrum abx + Bactroban / appreciate ID consult * Continue Vent mgt / Sedation / appreciate pulm input / weaning to commence * Continue to follow cardiology and Cardiothoracic surgical recs regarding meds and postop care / Appreciate aggressive and prompt mgt * Monitor closely for Hypoxic brain injury * Closely monitor electrolytes as well as renal and hepatic function PROPHYLAXIS: Lovenox / IV PPI Prognosis : extremely Guarded CRITICAL CARE TIME: >35 mins Subjective 24 Hr Interval Summary Free Text/Dictation Patient seen and examined. Off balloon pump Movements noticed on R side when off sedation off pressors Intubated and sedated for comfort, but no pressor support. Subjective hx not possible: pt critical status Exam/Review of Systems Vital Signs Vitals Vital Signs Date Time Temp Pulse Resp B/P Pulse Ox O2 Delivery O2 Flow Rate FiO2 06/19/16 12:00 80 06/19/16 11:20 30 100 40 06/19/16 07:30 123/55 Mechanical Ventilator 06/19/16 04:00 99.2 06/16/16 11:06 2 Intake and Output 06/18/16 06/18/16 06/19/16 15:00 23:00 07:00 Intake Total 710.32 ml 1385.94 ml 1063.6 ml Output Total 716 ml 520 ml 470 ml Balance -5.68 ml 865.94 ml 593.6 ml Exam Constitutional: No alert Head: normocephalic Eyes: PERRL ENMT: intubated Respiratory: crackles/rales, diminished breath sounds (L>>R), No wheezing Cardiovascular: irregular rhythm, No murmurs/extra sounds Gastrointestinal: bowel sounds (hypoactive), distended, soft Extremities: edema (diffuse) Neurological: focal weakness (movement noted on the R sided only), No nl mental status, No nl speech, No nl strength Skin: other (blister nited posterolateral R knee) Results Result Diagram: 06/19/16 0245 06/19/16 0245 Results 24 hrs Laboratory Tests Test 06/18/16 15:22 06/18/16 17:02 06/18/16 19:22 06/18/16 19:43 Bedside Glucose 97 84 76 Arterial Blood HCO3 22.1 Arterial Blood Base Excess -1.8 Arterial Blood Oxygen Saturation 98.2 H Kyle Test N/A Arterial Blood Gas Puncture Site A-Line Arterial Blood Carboxyhemoglobin 0.3 Arterial Blood Date Drawn 06/18/2016 7:15:00 PM Arterial Blood Methemoglobin 0.4 Arterial Blood pCO2 (Temp correct) 34.4 L Arterial Blood pH (Temp corrected) 7.425 Arterial Blood pO2 (Temp corrected) 122.1 H Blood Gas A-a O2 Differential 123.5 H Blood Gas Actual Respiration Rate 19 Blood Gas Low PEEP Setting 5.0 Blood Gas Modality VENT - AC Blood Gas Notified Time 06/18/2016 7:35:00 PM Blood Gas Notified Whom MA Blood Gas Respiration Rate 16.0 Blood Gas Specimen Source Blood arterial Blood Gas Temperature 37.0 Blood Gas Tidal Volume 500.0 FiO2 40.0 Oxyhemoglobin Percent 97.5 Total Hemoglobin 11.7 L Test 06/18/16 20:13 06/18/16 20:40 06/18/16 20:55 06/18/16 21:03 Bedside Glucose 60 L 48 *L 105 Anion Gap 9 Blood Urea Nitrogen 10 Calcium Level 7.1 L Carbon Dioxide Level 25 Chloride Level 103 Creatinine 0.70 Glucose Level 267 #H Magnesium Level 1.7 Phosphorus Level 3.1 Potassium Level 4.0 Sodium Level 133 L Test 06/18/16 21:17 06/18/16 21:34 06/18/16 22:05 06/18/16 22:29 Bedside Glucose 117 113 77 98 Test 06/18/16 22:58 06/19/16 00:00 06/19/16 00:56 06/19/16 01:14 Bedside Glucose 106 77 65 L 121 Test 06/19/16 01:27 06/19/16 01:59 06/19/16 02:40 06/19/16 02:45 Bedside Glucose 96 102 Vancomycin Level Trough 10.7 Albumin 2.3 L Anion Gap 8 Basophils # 0.0 Basophils % 0.1 Blood Urea Nitrogen 10 Calcium Level 7.5 L Carbon Dioxide Level 26 Chloride Level 105 Cholesterol Level 65 L Cholesterol/HDL Ratio 3.6 Creatine Kinase 803 H Creatinine 0.82 Eosinophils # 0.5 Eosinophils % 3.0 Glucose Level 121 # HDL Cholesterol 18 L Hematocrit 31.6 L Hemoglobin 10.3 L LDL Cholesterol, Calculated 30 Lymphocytes # 1.2 Lymphocytes % 7.0 L Magnesium Level 2.3 Mean Corpuscular Hemoglobin 29.6 Mean Corpuscular Hemoglobin Concent 32.6 Mean Corpuscular Volume 90.8 Mean Platelet Volume 10.7 H Monocytes # 1.4 H Monocytes % 8.2 Neutrophils # 13.7 H Neutrophils % 80.9 H Nucleated Red Blood Cells # 0.0 Nucleated Red Blood Cells % 0.0 Phosphorus Level 2.0 #L Platelet Count 125 L Potassium Level 4.3 Prealbumin 7.9 L Red Blood Count 3.48 L Red Cell Distribution Width 13.7 Sodium Level 135 Triglycerides Level 85 White Blood Count 16.9 H Test 06/19/16 02:51 06/19/16 04:36 06/19/16 06:17 06/19/16 08:00 Bedside Glucose 114 101 96 Lactic Acid Level 0.9 Test 06/19/16 08:06 06/19/16 11:15 Bedside Glucose 102 122 Medications Medications Current Medications Hydromorphone HCl (Dilaudid) 0.2 mg Q15M PRN IV PAIN LEVEL 1-5 Last administered on 06/17/16 14:18; Admin Dose 0.2 MG; Start 06/16/16 at 17:30 Hydromorphone HCl (Dilaudid) 0.4 mg Q15M PRN IV PAIN LEVEL 6-10 Last administered on 06/18/16 04:35; Admin Dose 0.4 MG; Start 06/16/16 at 17:30 Oxycodone/ Acetaminophen (Percocet (5/ 325)) 1 tab Q3H PRN PO PAIN LEVEL 1-5; Start 06/16/16 at 17:30 Oxycodone/ Acetaminophen (Percocet (5/ 325)) 2 tab Q3H PRN PO PAIN LEVEL 6-10; Start 06/16/16 at 17:30 Ondansetron HCl (Zofran Inj) 4 mg Q6H PRN IV NAUSEA AND/OR VOMITING; Start at 17:30 Famotidine (Pepcid Iv) 20 mg BID@08,20 IV Last administered on 06/19/16 11:23 ; Admin Dose 20 MG; Start 06/16/16 at 20:00 Acetaminophen 650 mg 650 mg Q3H PRN PO ELEVATED TEMPERATURE Last administered on 06/18/16 10:40; Admin Dose 650 MG; Start 06/16/16 at 17:30 Magnesium Sulfate/ Dextrose (Magnesium Sulfate 1 Gm/D5W) 100 ml @ 100 mls/hr PRN PRN IVPB PENDING LAB VALUE Last administered on 06/17/16 19:38; Admin Dose 100 MLS/HR; Start 06/16/16 at 17:30 Dextrose (D50w Syringe) 25 ml Q15M PRN IV Till BS 80 mg/dL or above x2 Last administered on 06/19/16 00:59; Admin Dose 25 ML; Start 06/16/16 at 17:30 Dextrose 50 ml 50 ml Q15M PRN IV Till BS 80 mg/dL or above x2 Last administered on 06/18/16 20:45; Admin Dose 50 ML; Start 06/16/16 at 17:30 Propofol (Diprivan) 100 ml @ 3.273 mls/ hr Q12H IV Last administered on 21:43; Admin Dose 6.546 MLS/HR; Start 06/16/16 at 17:30 Docusate Sodium 100 mg 100 mg BID PO Last administered on 06/19/16 09:04; Admin Dose 100 MG; Start 06/16/16 at 21:00 Levetiracetam 500 mg/Sodium Chloride 105 ml @ 420 mls/hr Q12 IVPB Last administered on 06/19/16 11:23; Admin Dose 420 MLS/HR; Start 06/16/16 at 21:00 Norepinephrine/ Dextrose (Levophed/D5W) 500 ml @ 1.87 mls/hr TITRATE IV Last administered on 06/18/16 01:59; Admin Dose 15 MLS/HR; Start 06/17/16 at 04:00 Acetaminophen (Tylenol Supp) [address] FEVER Last administered on 19:49; Admin Dose 650 MG; Start 06/16/16 at 22:00 Atorvastatin Calcium (Lipitor) 80 mg HS NGT Last administered on 06/18/16 21: 06; Admin Dose 80 MG; Start 06/17/16 at 21:00 Aspirin (Aspirin) 81 mg DAILY NGT Last administered on 06/19/16 09:04; Admin Dose 81 MG; Start 06/17/16 at 09:00 Clopidogrel Bisulfate (plaVIX) 75 mg DAILY NGT Last administered on 06/19/16 09:04; Admin Dose 75 MG; Start 06/17/16 at 09:00 Metoprolol Tartrate 25 mg 25 mg BID NGT Last administered on 06/19/16 09:05; Admin Dose 25 MG; Start 06/17/16 at 09:00 Midazolam HCl 50 ml @ 1 mls/hr TITRATE IV Last administered on 06/19/16 03:24 ; Admin Dose 4 MLS/HR; Start 06/17/16 at 10:30 Sodium Chloride (NS) 1,000 ml @ 80 mls/hr [id number] IV Last administered on 06/18 21:41; Admin Dose 80 MLS/HR; Start 06/17/16 at 15:00 Amiodarone HCl (Cordarone) 400 mg BID NGT Last administered on 06/18/16 02:17 ; Admin Dose 400 MG; Start 06/18/16 at 02:00; Status Future Hold Mupirocin 1 applic 1 applic BID TOP Last administered on 06/19/16 11:24; Admin Dose 1 APPLIC; Start 06/18/16 at 12:00 Piperacillin Sod/ Tazobactam Sod 100 ml @ 200 mls/hr Q8 IVPB Last administered on 06/19/16 06:02; Admin Dose 200 MLS/HR; Start 06/18/16 at 20:00 Dextrose/Sodium Chloride (D5-NS) 1,000 ml @ 80 mls/hr [id number] IV Last administered on 06/19/16t 02:04; Admin Dose 80 MLS/HR; Start 06/19/16 at 02:00 Insulin Aspart (Novolog Insulin Pen) NOVOLOG *MILD* ALGORI... Q4 SC ; Start at 13:00 Miscellaneous Information 1 ea NOTE XX ; Start 06/19/16 at 13:00 Glucose (Glutose) 15 gm Q15M PRN PO DECREASED GLUCOSE; Start 06/19/16 at 13:00 Glucose (Glutose) 22.5 gm Q15M PRN PO DECREASED GLUCOSE; Start 06/19/16 at 13: 00 Dextrose (D50w Syringe) 25 ml Q15M PRN IV DECREASED GLUCOSE; Start 06/19/16 at 13:00 Dextrose (D50w Syringe) 50 ml Q15M PRN IV DECREASED GLUCOSE; Start 06/19/16 at 13:00 Glucagon (Glucagen) 1 mg Q15M PRN IM DECREASED GLUCOSE; Start 06/19/16 at 13:00 Glucose (Glutose) 15 gm Q15M PRN BUCCAL DECREASED GLUCOSE; Start 06/19/16 at 13 :00 Enoxaparin Sodium 60 mg 60 mg AM SC ; Start 06/20/16 at 09:00 Vancomycin HCl/ Sodium Chloride (Vancocin/NS) 250 ml @ 83.333 mls/ hr Q8H IVPB ; Start 06/19/16 at 21:00 Miscellaneous Information (*Rx Drug Level Order Reminder*) 1 ONCE ONCE XX ; Start 06/20/16 at 12:00; Stop 06/20/16 at 12:01 BRICE MONTELONGO Jun 19, 2016 14:32
[2016-06-19] MEDS: SOD CHLORIDE 0.9% 1,000 ML IV SCH (17:00)
[2016-06-19] MEDS: ATORVASTATIN 80 MG TAB NGT SCH (21:10)
[2016-06-19] MEDS: VANCOMYCIN 1.25 GM in SOD CHLORIDE 0.9% 250 ML IVPB SCH (21:13)
[2016-06-19] MEDS: PROPOFOL 100 ML IV SCH (22:03)
[2016-06-20] VITALS (84 sets, daily range): BP systolic 100–146; BP diastolic 48–93; PULSE 52–89; RESP 12–35
[2016-06-20] MEDS: INSULIN ASPART [NOVOLOG] 3 ML PEN SC SCH ×6 (01:00→21:00)
[2016-06-20] MEDS: DEXTROSE 5%-0.9% NACL 1,000 ML IV SCH ×3 (03:35→20:00)
[2016-06-20 04:34] LABS: ADD SCAN DIFF NO
[2016-06-20 04:43] LABS: BASOPHILS % 0.3 % (0.0-2.0); EOSINOPHILS # 0.6 10^3/ul (0.0-0.5); EOSINOPHILS % 4.9 % (0.0-7.0); HEMATOCRIT 28.3 % (42.0-52.0); HEMOGLOBIN 9.1 g/dl (14.0-18.0); LYMPHOCYTES # 1.4 10^3/ul (0.8-2.9); LYMPHOCYTES % 11.6 % (15.0-51.0); MEAN CORPUSCULAR HEMOGLOBIN 29.4 pg (29.0-33.0); MEAN CORPUSCULAR HGB CONC 32.2 g/dl (32.0-37.0); MEAN CORPUSCULAR VOLUME 91.3 fl (82.0-101.0); MEAN PLATELET VOLUME 11.9 fl (7.4-10.4); MONOCYTE # 1.2 10^3/ul (0.3-0.9); NEUTROPHIL # 8.7 10^3/ul (1.6-7.5); NEUTROPHILS % 72.5 % (39.0-77.0); PLATELET COUNT 158 10^3/UL (140-415); RED CELL DISTRIBUTION WIDTH 14.1 % (11.5-14.5); WHITE BLOOD COUNT 11.9 10^3/ul (4.8-10.8)
[2016-06-20 04:48] LABS: ALBUMIN 2.3 g/dl (3.3-4.9); POTASSIUM 3.9 mmol/L (3.5-5.1)
[2016-06-20 04:51] LABS: CREATININE 0.8 mg/dl (0.61-1.24); PHOSPHORUS 2.1 mg/dl (2.5-4.9)
[2016-06-20 04:52] LABS: CALCIUM 7.5 mg/dl (8.4-10.2)
[2016-06-20] MEDS: VANCOMYCIN 1.25 GM in SOD CHLORIDE 0.9% 250 ML IVPB SCH (05:11)
[2016-06-20] MEDS: PIPER-TAZO 3.375 GM IV (PMX) 100 ML IVPB SCH ×3 (05:42→22:05)
--- NOTE | 2016-06-20 07:24 | PN ---
Date/Time of Note Date/Time of Note DATE: 06/20/16 TIME: 07:23 Assessment/Plan Lines/Catheters IV Catheter Type (from [facility]): Cordis Solis in Place (from [facility]): Yes Assessment/Plan Assessment/Plan NSR with PACs still intubated labs ok urine output good wean vent remove chest tubes today Exam/Review of Systems Vital Signs Vitals Vital Signs Date Time Temp Pulse Resp B/P Pulse Ox O2 Delivery O2 Flow Rate FiO2 06/20/16 05:16 80 28 100 40 06/20/16 04:45 103/53 06/20/16 04:00 98.6 Mechanical Ventilator 06/16/16 11:06 2 Intake and Output 06/19/16 06/19/16 06/20/16 15:00 23:00 07:00 Intake Total 160.2 ml 982.83 ml 783.5 ml Output Total 545 ml 940 ml 160 ml Balance -384.8 ml 42.83 ml 623.5 ml Results Result Diagram: 06/20/16 0410 06/20/16 0410 TITA CIFUENTES MD Jun 20, 2016 07:24
--- NOTE | 2016-06-20 08:26 | RADRPT ---
PROCEDURE: XR Chest AP portable CLINICAL INDICATION: Chest tube in and out daily TECHNIQUE: An AP portable radiograph of the chest was submitted. COMPARISON: 06/19/2016 FINDINGS: Support Hardware: The endotracheal tube and the NG tube remain satisfactorily positioned. No thoraco stomy tube is evident. A right jugular catheter is evident with the tip projecting to the junction o f the right jugular and right innominate veins. Cardiovascular: There is again evidence of a previous midline sternotomy. The heart is mildly enlar ged or the peripheral pulmonary vasculature ltrate is seen to the heart with in the left lower lobe. Pleural Spaces: No pneumothorax or pleural effusion is identified. Osseous Structures: The osseous structures appear intact. Soft Tissues: The soft tissues appear generous. IMPRESSION: 1. The endotracheal tube and the NG tube are stable in positioning as is a right jugular catheter w ith the tip projecting through the junction of the right jugular and right innominate veins. 2. Previous midline sternotomy with mild cardiomegaly without CHF. 3. Atelectasis and possibly infiltrate within the left lower lobe, unchanged. Physician Nevaeh Date Time Electronically viewed and signed by Physician Nevaeh on 06/20/2016 08:26 /
--- NOTE | 2016-06-20 08:36 | PN ---
Date/Time of Note Date/Time of Note DATE: 06/20/16 TIME: 08:34 Assessment/Plan VTE Prophylaxis VTE Prophylaxis Intervention: LMWH Lines/Catheters IV Catheter Type (from [facility]): Cordis Urinary Cath still in place: Yes Reason Cath still needed: other (indicate) Assessment/Plan Assessment/Plan A 61-year-old male managed as follows: 1. Severe Coronary artery disease, status post inferior wall ST elevation myocardial infarction that was not amenable to angiographic repair, status post emergent coronary artery bypass surgery, 4-vessel repair. 2. Acute respiratory failure, now ventilator dependent secondary to #2. 3. Status post Vfib arrest x2 with return of spontaneous circulation both times. 4. 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 5. History of vertigo. 6. Obesity. 7. Methamphetamine user 8. Severe SIRS versus Sepsis * LLL pneumonia on CXR likely aspiration 9. Shock likely Cardiogenic r/o Septic 10. Severe Rhabdomyolysis: improving 11. MRSA nares 12. Dyslipidemia PLAN: * Continue ICU mgt /Continue empiric broad spectrum abx + Bactroban / appreciate ID consult * Continue Vent mgt / Sedation / appreciate pulm input / weaning to commence * Continue to follow cardiology and Cardiothoracic surgical recs regarding meds and postop care / Appreciate aggressive and prompt mgt * Monitor closely for Hypoxic brain injury * Closely monitor electrolytes as well as renal and hepatic function PROPHYLAXIS: Lovenox / IV PPI Prognosis : extremely Guarded CRITICAL CARE TIME: >35 mins Subjective 24 Hr Interval Summary Free Text/Dictation * Patient seen and examined. * Nursing reports no acute overnight events. * Chest tube has been removed * remains intubated and sedated but off pressors Subjective hx not possible: pt non-verbal, pt critical status Exam/Review of Systems Vital Signs Vitals Vital Signs Date Time Temp Pulse Resp B/P Pulse Ox O2 Delivery O2 Flow Rate FiO2 06/20/16 05:16 80 28 100 40 06/20/16 04:45 103/53 06/20/16 04:00 98.6 Mechanical Ventilator 06/16/16 11:06 2 Intake and Output 06/19/16 06/19/16 06/20/16 15:00 23:00 07:00 Intake Total 160.2 ml 982.83 ml 783.5 ml Output Total 545 ml 940 ml 160 ml Balance -384.8 ml 42.83 ml 623.5 ml Exam Constitutional: No alert Head: normocephalic Eyes: PERRL ENMT: intubated Respiratory: crackles/rales, diminished breath sounds (L>>R), No wheezing Cardiovascular: irregular rhythm, No murmurs/extra sounds Gastrointestinal: bowel sounds (hypoactive), distended, soft Extremities: edema (diffuse) Neurological: focal weakness (movement noted on the R sided only), No nl mental status, No nl speech, No nl strength Skin: other (blister noted posterolateral R knee) Results Result Diagram: 06/20/1640906/20/16 0410 Results 24 hrs Laboratory Tests Test 06/19/16 11:15 06/19/16 15:33 06/19/16 18:06 06/19/16 21:49 Bedside Glucose 122 113 79 93 Test 06/20/16 01:41 06/20/16 04:10 06/20/16 05:13 Bedside Glucose 105 114 Albumin 2.3 L Anion Gap 11 Basophils # 0.0 Basophils % 0.3 Blood Urea Nitrogen 10 Calcium Level 7.5 L Carbon Dioxide Level 25 Chloride Level 108 Creatine Kinase 564 H Creatinine 0.80 Eosinophils # 0.6 H Eosinophils % 4.9 Glucose Level 113 Hematocrit 28.3 L Hemoglobin 9.1 L Lymphocytes # 1.4 Lymphocytes % 11.6 L Mean Corpuscular Hemoglobin 29.4 Mean Corpuscular Hemoglobin Concent 32.2 Mean Corpuscular Volume 91.3 Mean Platelet Volume 11.9 H Monocytes # 1.2 H Monocytes % 10.0 Neutrophils # 8.7 H Neutrophils % 72.5 Nucleated Red Blood Cells # 0.0 Nucleated Red Blood Cells % 0.0 Phosphorus Level 2.1 L Platelet Count 158 # Potassium Level 3.9 Red Blood Count 3.10 L Red Cell Distribution Width 14.1 Sodium Level 140 White Blood Count 11.9 #H Medications Medications Current Medications Hydromorphone HCl (Dilaudid) 0.2 mg Q15M PRN IV PAIN LEVEL 1-5 Last administered on 06/17/16 14:18; Admin Dose 0.2 MG; Start 06/16/16 at 17:30 Hydromorphone HCl (Dilaudid) 0.4 mg Q15M PRN IV PAIN LEVEL 6-10 Last administered on 06/18/16 04:35; Admin Dose 0.4 MG; Start 06/16/16 at 17:30 Oxycodone/ Acetaminophen (Percocet (5/ 325)) 1 tab Q3H PRN PO PAIN LEVEL 1-5; Start 06/16/16 at 17:30 Oxycodone/ Acetaminophen (Percocet (5/ 325)) 2 tab Q3H PRN PO PAIN LEVEL 6-10; Start 06/16/16 at 17:30 Ondansetron HCl (Zofran Inj) 4 mg Q6H PRN IV NAUSEA AND/OR VOMITING; Start at 17:30 Famotidine (Pepcid Iv) 20 mg BID@08,20 IV Last administered on 06/19/16 20:23 ; Admin Dose 20 MG; Start 06/16/16 at 20:00 Acetaminophen 650 mg 650 mg Q3H PRN PO ELEVATED TEMPERATURE Last administered on 06/18/16 10:40; Admin Dose 650 MG; Start 06/16/16 at 17:30 Magnesium Sulfate/ Dextrose (Magnesium Sulfate 1 Gm/D5W) 100 ml @ 100 mls/hr PRN PRN IVPB PENDING LAB VALUE Last administered on 06/17/16 19:38; Admin Dose 100 MLS/HR; Start 06/16/16 at 17:30 Dextrose (D50w Syringe) 25 ml Q15M PRN IV Till BS 80 mg/dL or above x2 Last administered on 06/19/16 00:59; Admin Dose 25 ML; Start 06/16/16 at 17:30 Dextrose 50 ml 50 ml Q15M PRN IV Till BS 80 mg/dL or above x2 Last administered on 06/18/16 20:45; Admin Dose 50 ML; Start 06/16/16 at 17:30 Propofol (Diprivan) 100 ml @ 3.273 mls/ hr Q12H IV Last administered on 22:03; Admin Dose 3.273 MLS/HR; Start 06/16/16 at 17:30 Docusate Sodium 100 mg 100 mg BID PO Last administered on 06/19/16 21:10; Admin Dose 100 MG; Start 06/16/16 at 21:00 Levetiracetam 500 mg/Sodium Chloride 105 ml @ 420 mls/hr Q12 IVPB Last administered on 06/19/16 20:47; Admin Dose 420 MLS/HR; Start 06/16/16 at 21:00 Norepinephrine/ Dextrose (Levophed/D5W) 500 ml @ 1.87 mls/hr TITRATE IV Last administered on 06/18/16 01:59; Admin Dose 15 MLS/HR; Start 06/17/16 at 04:00 Acetaminophen (Tylenol Supp) 650 mg Q6H PRN GA FEVER Last administered on 19:49; Admin Dose 650 MG; Start 06/16/16 at 22:00 Atorvastatin Calcium (Lipitor) 80 mg HS NGT Last administered on 06/19/16 21: 10; Admin Dose 80 MG; Start 06/17/16 at 21:00 Aspirin (Aspirin) 81 mg DAILY NGT Last administered on 06/19/16 09:04; Admin Dose 81 MG; Start 06/17/16 at 09:00 Clopidogrel Bisulfate (plaVIX) 75 mg DAILY NGT Last administered on 06/19/16 09:04; Admin Dose 75 MG; Start 06/17/16 at 09:00 Metoprolol Tartrate 25 mg 25 mg BID NGT Last administered on 06/19/16 21:12; Admin Dose 25 MG; Start 06/17/16 at 09:00 Midazolam HCl (Versed) 50 ml @ 1 mls/hr TITRATE IV Last administered on 03:24; Admin Dose 4 MLS/HR; Start 06/17/16 at 10:30 Amiodarone HCl (Cordarone) 400 mg BID NGT Last administered on 06/18/16 02:17 ; Admin Dose 400 MG; Start 06/18/16 at 02:00; Status Future Hold Mupirocin 1 applic 1 applic BID TOP Last administered on 06/19/16 21:46; Admin Dose 1 APPLIC; Start 06/18/16 at 12:00 Piperacillin Sod/ Tazobactam Sod 100 ml @ 200 mls/hr Q8 IVPB Last administered on 06/20/16 05:42; Admin Dose 200 MLS/HR; Start 06/18/16 at 20:00 Dextrose/Sodium Chloride (D5-NS) 1,000 ml @ 80 mls/hr [id number] IV Last administered on 06/20/16 03:35; Admin Dose 80 MLS/HR; Start 06/19/16 at 02:00 Insulin Aspart (Novolog Insulin Pen) NOVOLOG *MILD* ALGORI... Q4 SC ; Start at 13:00 Miscellaneous Information 1 ea NOTE XX ; Start 06/19/16 at 13:00 Glucose (Glutose) 15 gm Q15M PRN PO DECREASED GLUCOSE; Start 06/19/16 at 13:00 Glucose (Glutose) 22.5 gm Q15M PRN PO DECREASED GLUCOSE; Start 06/19/16 at 13: 00 Dextrose (D50w Syringe) 25 ml Q15M PRN IV DECREASED GLUCOSE; Start 06/19/16 at 13:00 Dextrose (D50w Syringe) 50 ml Q15M PRN IV DECREASED GLUCOSE; Start 06/19/16 at 13:00 Glucagon (Glucagen) 1 mg Q15M PRN IM DECREASED GLUCOSE; Start 06/19/16 at 13:00 Glucose (Glutose) 15 gm Q15M PRN BUCCAL DECREASED GLUCOSE; Start 06/19/16 at 13 :00 Enoxaparin Sodium 60 mg 60 mg AM SC ; Start 06/20/16 at 09:00 Vancomycin HCl/ Sodium Chloride (Vancocin/NS) 250 ml @ 83.333 mls/ hr Q8H IVPB Last administered on 06/20/16t 05:11; Admin Dose 83.333 MLS/HR; Start at 21:00 Miscellaneous Information (*Rx Drug Level Order Reminder*) 1 ONCE ONCE XX ; Start 06/20/16 at 12:00; Stop 06/20/16 at 12:01 Procedures Procedures PROCEDURE: XR Chest AP portable CLINICAL INDICATION: Chest tube in and out daily TECHNIQUE: An AP portable radiograph of the chest was submitted. COMPARISON: 06/19/2016 FINDINGS: Support Hardware: The endotracheal tube and the NG tube remain satisfactorily positioned. No thoracostomy tube is evident. A right jugular catheter is evident with the tip projecting to the junction of the right jugular and right innominate veins. Cardiovascular: There is again evidence of a previous midline sternotomy. The heart is mildly enlarged or the peripheral pulmonary vasculature ltrate is seen to the heart with in the left lower lobe. Pleural Spaces: No pneumothorax or pleural effusion is identified. Osseous Structures: The osseous structures appear intact. Soft Tissues: The soft tissues appear generous. IMPRESSION: 1. The endotracheal tube and the NG tube are stable in positioning as is a right jugular catheter with the tip projecting through the junction of the right jugular and right innominate veins. 2. Previous midline sternotomy with mild cardiomegaly without CHF. 3. Atelectasis and possibly infiltrate within the left lower lobe, unchanged. Physician Nevaeh Date Time Electronically viewed and signed by Gregorio Gutierrez Physician on 06/20/2016 08:26 RH/ CC: TITA CIFUENTES MD, BOLATITO M. Jun 20, 2016 08:36
[2016-06-20] MEDS ORDERED: POTASSIUM PHOSPHATE 15 MM in SOD CHLORIDE 0.9% 250 ML IVPB ONE (09:30)
--- NOTE | 2016-06-20 09:50 | CONS ---
Date/Time of Note Date/Time of Note DATE: 06/20/16 TIME: 09:45 Assessment/Plan Assessment/Plan Additional Assessment/Plan Ventilator settings; AC of 16, tidal volume 500, PEEP of 5, 40% FiO2. Chest x-ray was reviewed from today which went cardio megaly with mild pulmonary edema. Endotracheal tube is at an adequate level. There is left lower lobe subsegmental atelectasis. Assessment and recommendations; 1. Patient admitted with STEMI underwent emergent cardiac catheterization however because of severity of lesions PTCA could not be performed patient therefore underwent emergent coronary artery bypass surgery. 2. Mild pulmonary edema which is precluding weaning from mechanical ventilation at this point. 3. Possibly some element of aspiration pneumonia. 4. Excellent mental status off sedation. Patient however, could not handle CPAP mode owing to tachypnea, this likely is on account of underlying CHF. Resume sedation for now, patient has been put back on assist control mode. At this time I would recommend adding Lasix 40 mg IV every 12 hours at least for 2 doses. Obtain a follow-up chest x-ray in 24 hours. Continue other supportive measures. Prognosis is good. Consultation Date/Type/Reason Admit Date/Time Jun 16, 2016 at 17:32 Initial Consult Date 06/17/16 Type of Consultation: Pulmonary/critical care Referring Provider: BRICE MONTELONGO 24 HR Interval Summary Free Text/Dictation Patient condition is improved. However still remains in respiratory failure. Patient was taken off sedation short while ago and has excellent mental status not exhibiting any neurological deficit. Patient has remained hemodynamically stable. Not requiring any further pressor support. General examination; middle-aged man, orally intubated, awake and alert. Exam/Review of Systems Vital Signs Vitals Vital Signs Date Time Temp Pulse Resp B/P Pulse Ox O2 Delivery O2 Flow Rate FiO2 06/20/16 05:16 80 28 100 40 06/20/16 04:45 103/53 06/20/16 04:00 98.6 Mechanical Ventilator 06/16/16 11:06 2 Intake and Output 06/19/16 06/19/16 06/20/16 15:00 23:00 07:00 Intake Total 160.2 ml 982.83 ml 783.5 ml Output Total 545 ml 940 ml 160 ml Balance -384.8 ml 42.83 ml 623.5 ml Exam HEENT examination; supple neck, positive JVD. No lymphadenopathy. Midsize pupils. Fair dentition. No neck masses. No thyromegaly. Orally intubated. Chest examination; diminished but clear breath sounds bilaterally. S1-S2 audible, no murmurs. Regular rhythm. There is a dressing applied over the sternum. Chest tube has been removed. Abdomen examination; soft, nondistended. Nontender. Bowel sounds audible. No organomegaly. Extremity examination; no peripheral edema. Pulses 1+ bilaterally. [employer] examination; no focal deficit. Results Result Diagram: 06/20/16 0410 06/20/16 0410 Results 24 hrs Laboratory Tests Test 06/19/16 11:15 06/19/16 15:33 06/19/16 18:06 06/19/16 21:49 Bedside Glucose 122 113 79 93 Test 06/20/16 01:41 06/20/16 04:10 06/20/16 05:13 06/20/16 09:06 Bedside Glucose 105 114 119 Albumin 2.3 L Anion Gap 11 Basophils # 0.0 Basophils % 0.3 Blood Urea Nitrogen 10 Calcium Level 7.5 L Carbon Dioxide Level 25 Chloride Level 108 Creatine Kinase 564 H Creatinine 0.80 Eosinophils # 0.6 H Eosinophils % 4.9 Glucose Level 113 Hematocrit 28.3 L Hemoglobin 9.1 L Lymphocytes # 1.4 Lymphocytes % 11.6 L Mean Corpuscular Hemoglobin 29.4 Mean Corpuscular Hemoglobin Concent 32.2 Mean Corpuscular Volume 91.3 Mean Platelet Volume 11.9 H Monocytes # 1.2 H Monocytes % 10.0 Neutrophils # 8.7 H Neutrophils % 72.5 Nucleated Red Blood Cells # 0.0 Nucleated Red Blood Cells % 0.0 Phosphorus Level 2.1 L Platelet Count 158 # Potassium Level 3.9 Red Blood Count 3.10 L Red Cell Distribution Width 14.1 Sodium Level 140 White Blood Count 11.9 #H Medications Medications Current Medications Hydromorphone HCl (Dilaudid) 0.2 mg Q15M PRN IV PAIN LEVEL 1-5 Last administered on 06/17/16 14:18; Admin Dose 0.2 MG; Start 06/16/16 at 17:30 Hydromorphone HCl (Dilaudid) 0.4 mg Q15M PRN IV PAIN LEVEL 6-10 Last administered on 06/18/16 04:35; Admin Dose 0.4 MG; Start 06/16/16 at 17:30 Oxycodone/ Acetaminophen (Percocet (5/ 325)) 1 tab Q3H PRN PO PAIN LEVEL 1-5; Start 06/16/16 at 17:30 Oxycodone/ Acetaminophen (Percocet (5/ 325)) 2 tab Q3H PRN PO PAIN LEVEL 6-10; Start 06/16/16 at 17:30 Ondansetron HCl (Zofran Inj) 4 mg Q6H PRN IV NAUSEA AND/OR VOMITING; Start at 17:30 Famotidine (Pepcid Iv) 20 mg BID@08,20 IV Last administered on 06/19/16 20:23 ; Admin Dose 20 MG; Start 06/16/16 at 20:00 Acetaminophen 650 mg 650 mg Q3H PRN PO ELEVATED TEMPERATURE Last administered on 06/18/16 10:40; Admin Dose 650 MG; Start 06/16/16 at 17:30 Magnesium Sulfate/ Dextrose (Magnesium Sulfate 1 Gm/D5W) 100 ml @ 100 mls/hr PRN PRN IVPB PENDING LAB VALUE Last administered on 06/17/16 19:38; Admin Dose 100 MLS/HR; Start 06/16/16 at 17:30 Dextrose (D50w Syringe) 25 ml Q15M PRN IV Till BS 80 mg/dL or above x2 Last administered on 06/19/16 00:59; Admin Dose 25 ML; Start 06/16/16 at 17:30 Dextrose 50 ml 50 ml Q15M PRN IV Till BS 80 mg/dL or above x2 Last administered on 06/18/16 20:45; Admin Dose 50 ML; Start 06/16/16 at 17:30 Propofol (Diprivan) 100 ml @ 3.273 mls/ hr Q12H IV Last administered on 22:03; Admin Dose 3.273 MLS/HR; Start 06/16/16 at 17:30 Docusate Sodium 100 mg 100 mg BID PO Last administered on 06/19/16 21:10; Admin Dose 100 MG; Start 06/16/16 at 21:00 Levetiracetam 500 mg/Sodium Chloride 105 ml @ 420 mls/hr Q12 IVPB Last administered on 06/19/16 20:47; Admin Dose 420 MLS/HR; Start 06/16/16 at 21:00 Norepinephrine/ Dextrose (Levophed/D5W) 500 ml @ 1.87 mls/hr TITRATE IV Last administered on 06/18/16 01:59; Admin Dose 15 MLS/HR; Start 06/17/16 at 04:00 Acetaminophen (Tylenol Supp) 650 mg Q6H PRN [place] FEVER Last administered on 19:49; Admin Dose 650 MG; Start 06/16/16 at 22:00 Atorvastatin Calcium (Lipitor) 80 mg HS NGT Last administered on 06/19/16 21: 10; Admin Dose 80 MG; Start 06/17/16 at 21:00 Aspirin (Aspirin) 81 mg DAILY NGT Last administered on 06/19/16 09:04; Admin Dose 81 MG; Start 06/17/16 at 09:00 Clopidogrel Bisulfate (plaVIX) 75 mg DAILY NGT Last administered on 06/19/16 09:04; Admin Dose 75 MG; Start 06/17/16 at 09:00 Metoprolol Tartrate 25 mg 25 mg BID NGT Last administered on 06/19/16 21:12; Admin Dose 25 MG; Start 06/17/16 at 09:00 Midazolam HCl (Versed) 50 ml @ 1 mls/hr TITRATE IV Last administered on 03:24; Admin Dose 4 MLS/HR; Start 06/17/16 at 10:30 Amiodarone HCl (Cordarone) 400 mg BID NGT Last administered on 06/18/16 02:17 ; Admin Dose 400 MG; Start 06/18/16 at 02:00; Status Future Hold Mupirocin 1 applic 1 applic BID TOP Last administered on 06/19/16 21:46; Admin Dose 1 APPLIC; Start 06/18/16 at 12:00 Piperacillin Sod/ Tazobactam Sod 100 ml @ 200 mls/hr Q8 IVPB Last administered on 06/20/16 05:42; Admin Dose 200 MLS/HR; Start 06/18/16 at 20:00 Dextrose/Sodium Chloride (D5-NS) 1,000 ml @ 80 mls/hr [id number] IV Last administered on 06/20/16 03:35; Admin Dose 80 MLS/HR; Start 06/19/16 at 02:00 Insulin Aspart (Novolog Insulin Pen) NOVOLOG *MILD* ALGORI... Q4 SC ; Start at 13:00 Miscellaneous Information 1 ea NOTE XX ; Start 06/19/16 at 13:00 Glucose (Glutose) 15 gm Q15M PRN PO DECREASED GLUCOSE; Start 06/19/16 at 13:00 Glucose (Glutose) 22.5 gm Q15M PRN PO DECREASED GLUCOSE; Start 06/19/16 at 13: 00 Dextrose (D50w Syringe) 25 ml Q15M PRN IV DECREASED GLUCOSE; Start 06/19/16 at 13:00 Dextrose (D50w Syringe) 50 ml Q15M PRN IV DECREASED GLUCOSE; Start 06/19/16 at 13:00 Glucagon (Glucagen) 1 mg Q15M PRN IM DECREASED GLUCOSE; Start 06/19/16 at 13:00 Glucose (Glutose) 15 gm Q15M PRN BUCCAL DECREASED GLUCOSE; Start 06/19/16 at 13 :00 Enoxaparin Sodium 60 mg 60 mg AM SC ; Start 06/20/16 at 09:00 Vancomycin HCl/ Sodium Chloride (Vancocin/NS) 250 ml @ 83.333 mls/ hr Q8H IVPB Last administered on 06/20/16 05:11; Admin Dose 83.333 MLS/HR; Start at 21:00 Miscellaneous Information 1 ONCE ONCE XX ; Start 06/20/16 at 12:00; Stop at 12:01 Potassium Phosphate/Sodium Chloride (K Phos (Mm)/NS) 255 ml @ 63.75 mls/ hr ONCE ONCE IVPB ; Start 06/20/16 at 09:30; Stop 06/20/16 at 13:29 RICKY MAS Jun 20, 2016 09:50
[2016-06-20] MEDS: LEVETIRACETAM IV 500 MG in SOD CHLORIDE 0.9% 100 ML IVPB SCH ×2 (10:22→20:52)
[2016-06-20] MEDS: DOCUSATE SODIUM 100 MG CAP PO SCH ×2 (10:32→20:53)
[2016-06-20] MEDS: MUPIROCIN 2% 22 GM OINT TOP SCH ×2 (10:33→20:53)
[2016-06-20] MEDS: CLOPIDOGREL 75 MG TAB NGT SCH (10:33)
[2016-06-20] MEDS: METOPROLOL 25 MG TAB NGT SCH ×2 (10:33→20:52)
[2016-06-20] MEDS: ASPIRIN 81 MG TAB NGT SCH (10:34)
[2016-06-20] MEDS: FAMOTIDINE 20 MG INJ IV SCH ×2 (10:34→20:52)
[2016-06-20] MEDS: ENOXAPARIN 60 MG/0.6 ML SYG SC SCH (10:36)
--- NOTE | 2016-06-20 10:42 | RADRPT ---
PROCEDURE: XR Chest. CLINICAL INDICATION: Status post chest tube removal. History of STEMI. TECHNIQUE: Single frontal chest x-ray. COMPARISON: 06/20/2016 FINDINGS: The heart is enlarged. Aortic atherosclerotic vascular calcifications are identified. Increased va scular congestion and pulmonary edema is seen within the lungs, mildly improved when compared to the previous study. There is decreased layering pleural effusions when compared to the previous study. Atelectasis in the lung bases is stable. Post surgical median sternotomy wires are seen overlying the midline chest. Endotracheal tube and nasogastric tube and internal jugular Cordis catheter she ath are all in stable and good location, unchanged since the prior study. No other acute changes ar e seen. The surrounding osseous structures are unremarkable. IMPRESSION: 1. Cardiomegaly with improved congestion and edema and improved effusions within the lungs. 2. Stable lines and tubes in good position without evidence for pneumothorax. RPTAT: HMJB .Magdaleno Sevilla MD, MD Date Time Electronically viewed and signed by .Magdaleno Sevilla MD, on 06/20/2016 10:42 .B/
[2016-06-20] MEDS: FUROSEMIDE 40 MG INJ IV SCH ×2 (10:44→18:34)
--- NOTE | 2016-06-20 14:26 | CONS ---
Date/Time of Note Date/Time of Note DATE: 06/20/16 TIME: 14:20 Assessment/Plan Assessment/Plan Additional Assessment/Plan 1. Severe sepsis vs SIRS - postop fever resolving and leukocytosis downward trending (no obvious infiltrate seen on x-ray; lactic acid WNL; tee cx negative to date) 2. STEMI s/p emergent CABG 06/16/16 (Pt presented with CP two days after being discharged from [facility] for SBO) 3. Cardiogenic shock; s/p IABP and pressors 4. S/p Vfib arrest x2 on 06/16/16 5. Severe 3V CAD 6. Postop afib and aflutter - currently in NSR 7. 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 Methamphetamine user per + urine tox screen 9. Post op respiratory failure - for possible vent weaning 10. Postop anemia 11. Thrombocytopenia 12. Moderate to severe protein calorie malnutrition 13. MRSA nasal colonization 14. Obesity 15. Hx recent SBO 06/10/16 - treated medically 16. Hx Large basal cell carcinoma of the upper mid back s/p excision 08/17/14 17. Hx back wound infection with MSSA, Enterobacter Cloacae, Klebsiella Oxytoca , Corynebacter Jeikeium Grp JK 09/16/14 18. Hx repair of a large ventral incisional hernia in [facility] in 2009. Recommendations: - Continue Vanco (06/16/16) and Pip/tazo (06/18/16) - F/u final blood, urine and respiratory cx (all negative to date) - F/u procalc (pending) - Continue bactroban; contact isolation for MRSA Consultation Date/Type/Reason Admit Date/Time Jun 16, 2016 at 17:32 Initial Consult Date 06/18/16 Type of Consultation: Infectious Diseases Referring Provider: BRICE MONTELONGO 24 HR Interval Summary Free Text/Dictation No new positive cultures, respiratory culture was NOF only. Still with moderate ETT secretions, thus CPAP trial was pushed to tomorrow and remains on sedation ( propofol, versed). No BM. On TF, good UOP. Exam/Review of Systems Vital Signs Vitals Vital Signs Date Time Temp Pulse Resp B/P Pulse Ox O2 Delivery O2 Flow Rate FiO2 06/20/16 12:00 73 06/20/16 11:19 29 100 35 06/20/16 04:45 103/53 06/20/16 04:00 98.6 Mechanical Ventilator 06/16/16 11:06 2 Intake and Output 06/19/16 06/19/16 06/20/16 15:00 23:00 07:00 Intake Total 160.2 ml 982.83 ml 783.5 ml Output Total 545 ml 940 ml 160 ml Balance -384.8 ml 42.83 ml 623.5 ml Exam Constitutional: obese, other (Orally intubated), well developed, NGT right nare Head: atraumatic, normocephalic Neck: other (Right IJ central line c/d/i), supple Respiratory: clear to auscultation, other (chest tube intact without leak) Cardiovascular: other (sternal dressing c/d/i), regular rate and rhythm Gastrointestinal: bowel sounds, other (NGT clamped and intact), soft Genitourinary - Male: other (Solis cath intact) Extremities: No cyanosis, No edema Neurological: other (Sedated with sedation recently discontinued; Moves BLE weakly; no commands) Skin: other (Right groin dressing and left groin derma ibarra intact; BLE hyperpigmentation noted) Results Result Diagram: 06/20/1640906/20/16 0410 Results 24 hrs Laboratory Tests Test 06/19/16 15:33 06/19/16 18:06 06/19/16 21:49 06/20/16 01:41 Bedside Glucose 113 79 93 105 Test 06/20/16 04:10 06/20/16 05:13 06/20/16 09:06 06/20/16 12:05 Albumin 2.3 L Anion Gap 11 Basophils # 0.0 Basophils % 0.3 Blood Urea Nitrogen 10 Calcium Level 7.5 L Carbon Dioxide Level 25 Chloride Level 108 Creatine Kinase 564 H Creatinine 0.80 Eosinophils # 0.6 H Eosinophils % 4.9 Glucose Level 113 Hematocrit 28.3 L Hemoglobin 9.1 L Lymphocytes # 1.4 Lymphocytes % 11.6 L Mean Corpuscular Hemoglobin 29.4 Mean Corpuscular Hemoglobin Concent 32.2 Mean Corpuscular Volume 91.3 Mean Platelet Volume 11.9 H Monocytes # 1.2 H Monocytes % 10.0 Neutrophils # 8.7 H Neutrophils % 72.5 Nucleated Red Blood Cells # 0.0 Nucleated Red Blood Cells % 0.0 Phosphorus Level 2.1 L Platelet Count 158 # Potassium Level 3.9 Red Blood Count 3.10 L Red Cell Distribution Width 14.1 Sodium Level 140 White Blood Count 11.9 #H Bedside Glucose 114 119 Vancomycin Level Trough 17.4 Medications Medications Current Medications Hydromorphone HCl (Dilaudid) 0.2 mg Q15M PRN IV PAIN LEVEL 1-5 Last administered on 06/17/16 14:18; Admin Dose 0.2 MG; Start 06/16/16 at 17:30 Hydromorphone HCl (Dilaudid) 0.4 mg Q15M PRN IV PAIN LEVEL 6-10 Last administered on 06/18/16 04:35; Admin Dose 0.4 MG; Start 06/16/16 at 17:30 Oxycodone/ Acetaminophen (Percocet (5/ 325)) 1 tab Q3H PRN PO PAIN LEVEL 1-5; Start 06/16/16 at 17:30 Oxycodone/ Acetaminophen (Percocet (5/ 325)) 2 tab Q3H PRN PO PAIN LEVEL 6-10; Start 06/16/16 at 17:30 Ondansetron HCl (Zofran Inj) 4 mg Q6H PRN IV NAUSEA AND/OR VOMITING; Start at 17:30 Famotidine (Pepcid Iv) 20 mg BID@08,20 IV Last administered on 06/20/16 10:34 ; Admin Dose 20 MG; Start 06/16/16 at 20:00 Acetaminophen 650 mg 650 mg Q3H PRN PO ELEVATED TEMPERATURE Last administered on 06/18/16 10:40; Admin Dose 650 MG; Start 06/16/16 at 17:30 Magnesium Sulfate/ Dextrose (Magnesium Sulfate 1 Gm/D5W) 100 ml @ 100 mls/hr PRN PRN IVPB PENDING LAB VALUE Last administered on 06/17/16 19:38; Admin Dose 100 MLS/HR; Start 06/16/16 at 17:30 Dextrose (D50w Syringe) 25 ml Q15M PRN IV Till BS 80 mg/dL or above x2 Last administered on 06/19/16 00:59; Admin Dose 25 ML; Start 06/16/16 at 17:30 Dextrose 50 ml 50 ml Q15M PRN IV Till BS 80 mg/dL or above x2 Last administered on 06/18/16 20:45; Admin Dose 50 ML; Start 06/16/16 at 17:30 Propofol (Diprivan) 100 ml @ 3.273 mls/ hr Q12H IV Last administered on 22:03; Admin Dose 3.273 MLS/HR; Start 06/16/16 at 17:30 Docusate Sodium 100 mg 100 mg BID PO Last administered on 06/20/16 10:32; Admin Dose 100 MG; Start 06/16/16 at 21:00 Levetiracetam 500 mg/Sodium Chloride 105 ml @ 420 mls/hr Q12 IVPB Last administered on 06/20/16 10:22; Admin Dose 420 MLS/HR; Start 06/16/16 at 21:00 Norepinephrine/ Dextrose (Levophed/D5W) 500 ml @ 1.87 mls/hr TITRATE IV Last administered on 06/18/16 01:59; Admin Dose 15 MLS/HR; Start 06/17/16 at 04:00 Acetaminophen (Tylenol Supp) 650 mg Q6H PRN IN FEVER Last administered on 19:49; Admin Dose 650 MG; Start 06/16/16 at 22:00 Atorvastatin Calcium (Lipitor) 80 mg HS NGT Last administered on 06/19/16 21: 10; Admin Dose 80 MG; Start 06/17/16 at 21:00 Aspirin (Aspirin) 81 mg DAILY NGT Last administered on 06/20/16 10:34; Admin Dose 81 MG; Start 06/17/16 at 09:00 Clopidogrel Bisulfate (plaVIX) 75 mg DAILY NGT Last administered on 06/20/16 10:33; Admin Dose 75 MG; Start 06/17/16 at 09:00 Metoprolol Tartrate 25 mg 25 mg BID NGT Last administered on 06/20/16 10:33; Admin Dose 25 MG; Start 06/17/16 at 09:00 Midazolam HCl (Versed) 50 ml @ 1 mls/hr TITRATE IV Last administered on 03:24; Admin Dose 4 MLS/HR; Start 06/17/16 at 10:30 Amiodarone HCl (Cordarone) 400 mg BID NGT Last administered on 06/18/16 02:17 ; Admin Dose 400 MG; Start 06/18/16 at 02:00; Status Future Hold Mupirocin 1 applic 1 applic BID TOP Last administered on 06/20/16 10:33; Admin Dose 1 APPLIC; Start 06/18/16 at 12:00 Piperacillin Sod/ Tazobactam Sod 100 ml @ 200 mls/hr Q8 IVPB Last administered on 06/20/16 05:42; Admin Dose 200 MLS/HR; Start 06/18/16 at 20:00 Dextrose/Sodium Chloride (D5-NS) 1,000 ml @ 80 mls/hr [id number] IV Last administered on 06/20/16 03:35; Admin Dose 80 MLS/HR; Start 06/19/16 at 02:00 Insulin Aspart (Novolog Insulin Pen) NOVOLOG *MILD* ALGORI... Q4 SC ; Start at 13:00 Miscellaneous Information 1 ea NOTE XX ; Start 06/19/16 at 13:00 Glucose (Glutose) 15 gm Q15M PRN PO DECREASED GLUCOSE; Start 06/19/16 at 13:00 Glucose (Glutose) 22.5 gm Q15M PRN PO DECREASED GLUCOSE; Start 06/19/16 at 13: 00 Dextrose (D50w Syringe) 25 ml Q15M PRN IV DECREASED GLUCOSE; Start 06/19/16 at 13:00 Dextrose (D50w Syringe) 50 ml Q15M PRN IV DECREASED GLUCOSE; Start 06/19/16 at 13:00 Glucagon (Glucagen) 1 mg Q15M PRN IM DECREASED GLUCOSE; Start 06/19/16 at 13:00 Glucose (Glutose) 15 gm Q15M PRN BUCCAL DECREASED GLUCOSE; Start 06/19/16 at 13 :00 Enoxaparin Sodium 60 mg 60 mg AM SC Last administered on 06/20/16 10:36; Admin Dose 60 MG; Start 06/20/16 at 09:00 Vancomycin HCl (Vancocin) 250 ml @ 125 mls/hr Q8H IVPB ; Start 06/20/16 at 14: 00 KORINA BEY Jun 20, 2016 14:26
[2016-06-20] MEDS: VANCOMYCIN 1 GM in NS 250 ML IVPB SCH ×2 (14:57→22:05)
[2016-06-20] MEDS: PROPOFOL 100 ML IV SCH ×2 (17:30→20:55)
[2016-06-20] MEDS: MIDAZOLAM (DRIP) 50 mg/50 mL 50 ML IV SCH (18:15)
--- NOTE | 2016-06-20 19:00 | PN ---
Date/Time of Note Date/Time of Note DATE: 06/20/16 TIME: 18:57 Assessment/Plan VTE Prophylaxis VTE Prophylaxis Intervention: SCD's Lines/Catheters IV Catheter Type (from [facility]): Peripheral IV Urinary Cath still in place: Yes Reason Cath still needed: other (indicate) (intubated) Assessment/Plan Chief Complaint/Hosp Course Patient presents two days after discharge for SBO with a STEMI and VF arrest, has 3 vessel coronary disease and known cardiomyopathy, underwent emergent CABG. Problems: Assessment/Plan STEMI, s/p CABG postop day #4 Post op afib and aflutter, currently in NSR ischemic cardiomyopathy acute respiratory failure, for possible vent weaning Fever Recc: Continue asa, clopidogrel, statin, metoprolol Will add a low-dose bernard inhibitor for cardiomyopathy Postoperative care and vent weaning per surgical / critical care On empiric antibiotics Subjective 24 Hr Interval Summary Free Text/Dictation Patient remains intubated. [place] is at bedside, had several questions which I answered. Per nursing, when sedation turned down he followed commands. Subjective hx not possible: other (intubated) Exam/Review of Systems Vital Signs Vitals Vital Signs Date Time Temp Pulse Resp B/P Pulse Ox O2 Delivery O2 Flow Rate FiO2 06/20/16 17:55 88 24 100 35 06/20/16 16:45 130/64 Mechanical Ventilator 06/20/16 16:00 98.6 06/16/16 11:06 2 Intake and Output 06/19/16 06/19/16 06/20/16 15:00 23:00 07:00 Intake Total 160.2 ml 982.83 ml 783.5 ml Output Total 545 ml 940 ml 160 ml Balance -384.8 ml 42.83 ml 623.5 ml Exam Constitutional: non-verbal Head: normocephalic ENMT: intubated Neck: No bruits, No jvd Respiratory: clear to auscultation Cardiovascular: regular rate and rhythm, No murmurs/extra sounds Gastrointestinal: soft Extremities: edema Skin: nl turgor Results Result Diagram: 06/20/16 0410 06/20/160 Results 24 hrs Laboratory Tests Test 06/19/16 21:49 06/20/16 01:41 06/20/16 04:10 06/20/16 05:13 Bedside Glucose 93 105 114 Albumin 2.3 L Anion Gap 11 Basophils # 0.0 Basophils % 0.3 Blood Urea Nitrogen 10 Calcium Level 7.5 L Carbon Dioxide Level 25 Chloride Level 108 Creatine Kinase 564 H Creatinine 0.80 Eosinophils # 0.6 H Eosinophils % 4.9 Glucose Level 113 Hematocrit 28.3 L Hemoglobin 9.1 L Lymphocytes # 1.4 Lymphocytes % 11.6 L Mean Corpuscular Hemoglobin 29.4 Mean Corpuscular Hemoglobin Concent 32.2 Mean Corpuscular Volume 91.3 Mean Platelet Volume 11.9 H Monocytes # 1.2 H Monocytes % 10.0 Neutrophils # 8.7 H Neutrophils % 72.5 Nucleated Red Blood Cells # 0.0 Nucleated Red Blood Cells % 0.0 Phosphorus Level 2.1 L Platelet Count 158 # Potassium Level 3.9 Red Blood Count 3.10 L Red Cell Distribution Width 14.1 Sodium Level 140 White Blood Count 11.9 #H Test 06/20/16 09:06 06/20/16 12:05 06/20/16 15:28 06/20/16 18:37 Bedside Glucose 119 123 100 Vancomycin Level Trough 17.4 Medications Medications Current Medications Hydromorphone HCl (Dilaudid) 0.2 mg Q15M PRN IV PAIN LEVEL 1-5 Last administered on 06/17/16 14:18; Admin Dose 0.2 MG; Start 06/16/16 at 17:30 Hydromorphone HCl (Dilaudid) 0.4 mg Q15M PRN IV PAIN LEVEL 6-10 Last administered on 06/18/16 04:35; Admin Dose 0.4 MG; Start 06/16/16 at 17:30 Oxycodone/ Acetaminophen (Percocet (5/ 325)) 1 tab Q3H PRN PO PAIN LEVEL 1-5; Start 06/16/16 at 17:30 Oxycodone/ Acetaminophen (Percocet (5/ 325)) 2 tab Q3H PRN PO PAIN LEVEL 6-10; Start 06/16/16 at 17:30 Ondansetron HCl (Zofran Inj) 4 mg Q6H PRN IV NAUSEA AND/OR VOMITING; Start at 17:30 Famotidine (Pepcid Iv) 20 mg BID@08,20 IV Last administered on 06/20/16 10:34 ; Admin Dose 20 MG; Start 06/16/16 at 20:00 Acetaminophen 650 mg 650 mg Q3H PRN PO ELEVATED TEMPERATURE Last administered on 06/18/16 10:40; Admin Dose 650 MG; Start 06/16/16 at 17:30 Magnesium Sulfate/ Dextrose (Magnesium Sulfate 1 Gm/D5W) 100 ml @ 100 mls/hr PRN PRN IVPB PENDING LAB VALUE Last administered on 06/17/16 19:38; Admin Dose 100 MLS/HR; Start 06/16/16 at 17:30 Dextrose (D50w Syringe) 25 ml Q15M PRN IV Till BS 80 mg/dL or above x2 Last administered on 06/19/16 00:59; Admin Dose 25 ML; Start 06/16/16 at 17:30 Dextrose 50 ml 50 ml Q15M PRN IV Till BS 80 mg/dL or above x2 Last administered on 06/18/16 20:45; Admin Dose 50 ML; Start 06/16/16 at 17:30 Propofol (Diprivan) 100 ml @ 3.273 mls/ hr Q12H IV Last administered on 22:03; Admin Dose 3.273 MLS/HR; Start 06/16/16 at 17:30 Docusate Sodium 100 mg 100 mg BID PO Last administered on 06/20/16 10:32; Admin Dose 100 MG; Start 06/16/16 at 21:00 Levetiracetam 500 mg/Sodium Chloride 105 ml @ 420 mls/hr Q12 IVPB Last administered on 06/20/16 10:22; Admin Dose 420 MLS/HR; Start 06/16/16 at 21:00 Norepinephrine/ Dextrose (Levophed/D5W) 500 ml @ 1.87 mls/hr TITRATE IV Last administered on 06/18/16 01:59; Admin Dose 15 MLS/HR; Start 06/17/16 at 04:00 Acetaminophen (Tylenol Supp) 650 mg Q6H PRN [place] FEVER Last administered on 19:49; Admin Dose 650 MG; Start 06/16/16 at 22:00 Atorvastatin Calcium (Lipitor) 80 mg HS NGT Last administered on 06/19/16 21: 10; Admin Dose 80 MG; Start 06/17/16 at 21:00 Aspirin (Aspirin) 81 mg DAILY NGT Last administered on 06/20/16 10:34; Admin Dose 81 MG; Start 06/17/16 at 09:00 Clopidogrel Bisulfate (plaVIX) 75 mg DAILY NGT Last administered on 06/20/16 10:33; Admin Dose 75 MG; Start 06/17/16 at 09:00 Metoprolol Tartrate 25 mg 25 mg BID NGT Last administered on 06/20/16 10:33; Admin Dose 25 MG; Start 06/17/16 at 09:00 Midazolam HCl (Versed) 50 ml @ 1 mls/hr TITRATE IV Last administered on 18:15; Admin Dose 2 MLS/HR; Start 06/17/16 at 10:30 Amiodarone HCl (Cordarone) 400 mg BID NGT Last administered on 06/18/16 02:17 ; Admin Dose 400 MG; Start 06/18/16 at 02:00; Status Future Hold Mupirocin 1 applic 1 applic BID TOP Last administered on 06/20/16 10:33; Admin Dose 1 APPLIC; Start 06/18/16 at 12:00 Piperacillin Sod/ Tazobactam Sod 100 ml @ 200 mls/hr Q8 IVPB Last administered on 06/20/16 14:56; Admin Dose 200 MLS/HR; Start 06/18/16 at 20:00 Dextrose/Sodium Chloride (D5-NS) 1,000 ml @ 80 mls/hr [id number] IV Last administered on 06/20/16 03:35; Admin Dose 80 MLS/HR; Start 06/19/16 at 02:00 Insulin Aspart (Novolog Insulin Pen) NOVOLOG *MILD* ALGORI... Q4 SC ; Start at 13:00 Miscellaneous Information 1 ea NOTE XX ; Start 06/19/16 at 13:00 Glucose (Glutose) 15 gm Q15M PRN PO DECREASED GLUCOSE; Start 06/19/16 at 13:00 Glucose (Glutose) 22.5 gm Q15M PRN PO DECREASED GLUCOSE; Start 06/19/16 at 13: 00 Dextrose (D50w Syringe) 25 ml Q15M PRN IV DECREASED GLUCOSE; Start 06/19/16 at 13:00 Dextrose (D50w Syringe) 50 ml Q15M PRN IV DECREASED GLUCOSE; Start 06/19/16 at 13:00 Glucagon (Glucagen) 1 mg Q15M PRN IM DECREASED GLUCOSE; Start 06/19/16 at 13:00 Glucose (Glutose) 15 gm Q15M PRN BUCCAL DECREASED GLUCOSE; Start 06/19/16 at 13 :00 Enoxaparin Sodium 60 mg 60 mg AM SC Last administered on 06/20/16 10:36; Admin Dose 60 MG; Start 06/20/16 at 09:00 Vancomycin HCl (Vancocin) 250 ml @ 125 mls/hr Q8H IVPB Last administered on 14:57; Admin Dose 125 MLS/HR; Start 06/20/16 at 14:00 BAM BERTRAND Jun 20, 2016 19:00
[2016-06-20] MEDS: ATORVASTATIN 80 MG TAB NGT SCH (20:52)
[2016-06-21] VITALS (46 sets, daily range): BP systolic 78–144; BP diastolic 56–103; PULSE 70–86; RESP 16–30
[2016-06-21] MEDS: INSULIN ASPART [NOVOLOG] 3 ML PEN SC SCH ×6 (01:00→21:00)
[2016-06-21] MEDS: DEXTROSE 5%-0.9% NACL 1,000 ML IV SCH ×2 (04:00→16:57)
[2016-06-21 05:43] LABS: ADD SCAN DIFF NO
[2016-06-21 05:48] LABS: ALBUMIN 2.4 g/dl (3.3-4.9); POTASSIUM 3.5 mmol/L (3.5-5.1)
[2016-06-21 05:50] LABS: CREATININE 0.84 mg/dl (0.61-1.24)
[2016-06-21 05:51] LABS: CALCIUM 7.6 mg/dl (8.4-10.2); PHOSPHORUS 2.6 mg/dl (2.5-4.9)
[2016-06-21 06:03] LABS: BASOPHILS % 0.4 % (0.0-2.0); EOSINOPHILS # 1.1 10^3/ul (0.0-0.5); EOSINOPHILS % 11.4 % (0.0-7.0); HEMATOCRIT 27.6 % (42.0-52.0); HEMOGLOBIN 8.8 g/dl (14.0-18.0); LYMPHOCYTES # 1.2 10^3/ul (0.8-2.9); LYMPHOCYTES % 13.2 % (15.0-51.0); MEAN CORPUSCULAR HEMOGLOBIN 29.4 pg (29.0-33.0); MEAN CORPUSCULAR HGB CONC 31.9 g/dl (32.0-37.0); MEAN CORPUSCULAR VOLUME 92.3 fl (82.0-101.0); MEAN PLATELET VOLUME 11.2 fl (7.4-10.4); MONOCYTE # 0.8 10^3/ul (0.3-0.9); MONOCYTES % 8.7 % (0.0-11.0); NEUTROPHIL # 6.1 10^3/ul (1.6-7.5); NEUTROPHILS % 65.7 % (39.0-77.0); NUCLEATED RED BLOOD CELLS% 0.4 /100WBC (0.0-0.0); PLATELET COUNT 202 10^3/UL (140-415); RED BLOOD COUNT 2.99 10^6/ul (4.70-6.10); RED CELL DISTRIBUTION WIDTH 14.1 % (11.5-14.5); WHITE BLOOD COUNT 9.3 10^3/ul (4.8-10.8)
[2016-06-21] MEDS: PROPOFOL 100 ML IV SCH ×2 (06:25→17:30)
[2016-06-21] MEDS: FUROSEMIDE 40 MG INJ IV SCH ×2 (06:26→17:56)
[2016-06-21] MEDS: PIPER-TAZO 3.375 GM IV (PMX) 100 ML IVPB SCH ×3 (06:26→21:57)
[2016-06-21] MEDS: VANCOMYCIN 1 GM in NS 250 ML IVPB SCH ×3 (06:26→22:30)
--- NOTE | 2016-06-21 07:44 | PN ---
Date/Time of Note Date/Time of Note DATE: 06/21/16 TIME: 07:43 Assessment/Plan Lines/Catheters IV Catheter Type (from Nrs): Peripheral IV [facility] in Place (from Nrs): Yes Assessment/Plan Assessment/Plan HD stable, labs ok, NSR cxr mild atelectasis needs to be extubated to prevent VAP and further icu related illnesses Exam/Review of Systems Vital Signs Vitals Vital Signs Date Time Temp Pulse Resp B/P Pulse Ox O2 Delivery O2 Flow Rate FiO2 06/21/16 05:10 77 24 100 35 06/21/16 05:00 96/57 Mechanical Ventilator 06/21/16 04:00 98.2 Intake and Output 06/20/16 06/20/16 06/21/16 15:00 23:00 07:00 Intake Total 1422.024 ml 1477.103 ml 1268 ml Output Total 1150 ml 2500 ml 875 ml Balance 272.024 ml -1022.897 ml 393 ml Results Result Diagram: 06/21/16 0500 06/21/16 0500 TITA CIFUENTES MD Jun 21, 2016 07:44
--- NOTE | 2016-06-21 08:19 | PN ---
Date/Time of Note Date/Time of Note DATE: 06/21/16 TIME: 08:14 Assessment/Plan VTE Prophylaxis VTE Prophylaxis Intervention: LMWH Lines/Catheters IV Catheter Type (from [facility]): Peripheral IV Urinary Cath still in place: Yes Reason Cath still needed: other (indicate) Assessment/Plan Assessment/Plan A 61-year-old male managed as follows: 1. Severe Coronary artery disease, status post inferior wall ST elevation myocardial infarction that was not amenable to angiographic repair, status post emergent coronary artery bypass surgery, 4-vessel repair 06/16/16 2. Acute respiratory failure, now ventilator dependent secondary to #2. 3. Status post Vfib arrest x2 with return of spontaneous circulation both times. 4. 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 5. Post op Afib / Aflutter now in NSR 6. Obesity. 7. Methamphetamine user 8. Severe SIRS 2/ #1 9. Developing LLL aspiration pneumonia 10. Shock likely Cardiogenic: improved 11. Severe Rhabdomyolysis: improving 12. MRSA nares 13. Dyslipidemia 14. Anemia likely dilutional + blood loss PLAN: * Continue ICU mgt /Continue empiric broad spectrum abx + Bactroban / appreciate ID consult * Continue Vent mgt / Sedation / appreciate pulm input / weaning to commence / Serial CXRs * Continue to follow cardiology and Cardiothoracic surgical recs regarding meds and postop care / Appreciate aggressive and prompt mgt * Monitor closely for Hypoxic brain injury * Closely monitor electrolytes as well as renal and hepatic function * Closely monitor hgb levels and transfuse PRN PROPHYLAXIS: Lovenox / IV PPI Prognosis : improved CRITICAL CARE TIME: >35 mins Subjective 24 Hr Interval Summary Free Text/Dictation Patient seen and examined. Subjective hx not possible: pt non-verbal, pt critical status Exam/Review of Systems Vital Signs Vitals Vital Signs Date Time Temp Pulse Resp B/P Pulse Ox O2 Delivery O2 Flow Rate FiO2 06/21/16 05:10 77 24 100 35 06/21/16 05:00 96/57 Mechanical Ventilator 06/21/16 04:00 98.2 Intake and Output 06/20/16 06/20/16 06/21/16 15:00 23:00 07:00 Intake Total 1422.024 ml 1477.103 ml 1268 ml Output Total 1150 ml 2500 ml 875 ml Balance 272.024 ml -1022.897 ml 393 ml Exam Constitutional: No alert Head: normocephalic Eyes: PERRL ENMT: intubated, possible extubation today Respiratory: crackles/rales, diminished breath sounds (L>>R), No wheezing Cardiovascular: irregular rhythm, No murmurs/extra sounds Gastrointestinal: bowel sounds (hypoactive), distended, soft Extremities: edema (diffuse) Neurological: focal weakness (movement noted on the R sided only), No nl mental status, No nl speech, No nl strength Skin: other (blister noted posterolateral R knee) Results Result Diagram: 06/21/16 0500 06/21/16 0500 Results 24 hrs Laboratory Tests Test 06/20/16 09:06 06/20/16 12:05 06/20/16 15:28 06/20/16 18:37 Bedside Glucose 119 123 100 Vancomycin Level Trough 17.4 Test 06/20/16 21:00 06/21/16 01:12 06/21/16 04:58 06/21/16 05:00 Bedside Glucose 94 104 136 Albumin 2.4 L Anion Gap 11 Basophils # 0.0 Basophils % 0.4 Blood Urea Nitrogen 12 Calcium Level 7.6 L Carbon Dioxide Level 29 Chloride Level 106 Creatine Kinase 263 #H Creatinine 0.84 Eosinophils # 1.1 H Eosinophils % 11.4 H Glucose Level 138 Hematocrit 27.6 L Hemoglobin 8.8 L Lymphocytes # 1.2 Lymphocytes % 13.2 L Magnesium Level 1.9 Mean Corpuscular Hemoglobin 29.4 Mean Corpuscular Hemoglobin Concent 31.9 L Mean Corpuscular Volume 92.3 Mean Platelet Volume 11.2 H Monocytes # 0.8 Monocytes % 8.7 Neutrophils # 6.1 Neutrophils % 65.7 Nucleated Red Blood Cells # 0.0 Nucleated Red Blood Cells % 0.4 H Phosphorus Level 2.6 Platelet Count 202 # Potassium Level 3.5 Red Blood Count 2.99 L Red Cell Distribution Width 14.1 Sodium Level 142 White Blood Count 9.3 # Medications Medications Current Medications Hydromorphone HCl (Dilaudid) 0.2 mg Q15M PRN IV PAIN LEVEL 1-5 Last administered on 06/17/16t 14:18; Admin Dose 0.2 MG; Start 06/16/16 at 17:30 Hydromorphone HCl (Dilaudid) 0.4 mg Q15M PRN IV PAIN LEVEL 6-10 Last administered on 06/18/16 04:35; Admin Dose 0.4 MG; Start 06/16/16 at 17:30 Oxycodone/ Acetaminophen (Percocet (5/ 325)) 1 tab Q3H PRN PO PAIN LEVEL 1-5; Start 06/16/16 at 17:30 Oxycodone/ Acetaminophen (Percocet (5/ 325)) 2 tab Q3H PRN PO PAIN LEVEL 6-10; Start 06/16/16 at 17:30 Ondansetron HCl (Zofran Inj) 4 mg Q6H PRN IV NAUSEA AND/OR VOMITING; Start at 17:30 Famotidine (Pepcid Iv) 20 mg BID@08,20 IV Last administered on 06/20/16 20:52 ; Admin Dose 20 MG; Start 06/16/16 at 20:00 Acetaminophen 650 mg 650 mg Q3H PRN PO ELEVATED TEMPERATURE Last administered on 06/18/16 10:40; Admin Dose 650 MG; Start 06/16/16 at 17:30 Magnesium Sulfate/ Dextrose (Magnesium Sulfate 1 Gm/D5W) 100 ml @ 100 mls/hr PRN PRN IVPB PENDING LAB VALUE Last administered on 06/17/16 19:38; Admin Dose 100 MLS/HR; Start 06/16/16 at 17:30 Dextrose (D50w Syringe) 25 ml Q15M PRN IV Till BS 80 mg/dL or above x2 Last administered on 06/19/16 00:59; Admin Dose 25 ML; Start 06/16/16 at 17:30 Dextrose 50 ml 50 ml Q15M PRN IV Till BS 80 mg/dL or above x2 Last administered on 06/18/16 20:45; Admin Dose 50 ML; Start 06/16/16 at 17:30 Propofol (Diprivan) 100 ml @ 3.273 mls/ hr Q12H IV Last administered on 06:25; Admin Dose 7.201 MLS/HR; Start 06/16/16 at 17:30 Docusate Sodium 100 mg 100 mg BID PO Last administered on 06/20/16 20:53; Admin Dose 100 MG; Start 06/16/16 at 21:00 Levetiracetam 500 mg/Sodium Chloride 105 ml @ 420 mls/hr Q12 IVPB Last administered on 06/20/16 20:52; Admin Dose 420 MLS/HR; Start 06/16/16 at 21:00 Norepinephrine/ Dextrose (Levophed/D5W) 500 ml @ 1.87 mls/hr TITRATE IV Last administered on 06/18/16 01:59; Admin Dose 15 MLS/HR; Start 06/17/16 at 04:00 Acetaminophen (Tylenol Supp) 650 mg Q6H PRN IN FEVER Last administered on 19:49; Admin Dose 650 MG; Start 06/16/16 at 22:00 Atorvastatin Calcium (Lipitor) 80 mg HS NGT Last administered on 06/20/16 20: 52; Admin Dose 80 MG; Start 06/17/16 at 21:00 Aspirin (Aspirin) 81 mg DAILY NGT Last administered on 06/20/16 10:34; Admin Dose 81 MG; Start 06/17/16 at 09:00 Clopidogrel Bisulfate (plaVIX) 75 mg DAILY NGT Last administered on 06/20/16 10:33; Admin Dose 75 MG; Start 06/17/16 at 09:00 Metoprolol Tartrate 25 mg 25 mg BID NGT Last administered on 06/20/16 20:52; Admin Dose 25 MG; Start 06/17/16 at 09:00 Midazolam HCl (Versed) 50 ml @ 1 mls/hr TITRATE IV Last administered on 18:15; Admin Dose 2 MLS/HR; Start 06/17/16 at 10:30 Amiodarone HCl (Cordarone) 400 mg BID NGT Last administered on 06/18/16 02:17 ; Admin Dose 400 MG; Start 06/18/16 at 02:00; Status Future Hold Mupirocin 1 applic 1 applic BID TOP Last administered on 06/20/16 20:53; Admin Dose 1 APPLIC; Start 06/18/16 at 12:00 Piperacillin Sod/ Tazobactam Sod 100 ml @ 200 mls/hr Q8 IVPB Last administered on 06/21/16 06:26; Admin Dose 200 MLS/HR; Start 06/18/16 at 20:00 Dextrose/Sodium Chloride (D5-NS) 1,000 ml @ 80 mls/hr [id number] IV Last administered on 06/20/16 20:00; Admin Dose 80 MLS/HR; Start 06/19/16 at 02:00 Insulin Aspart (Novolog Insulin Pen) NOVOLOG *MILD* ALGORI... Q4 SC ; Start at 13:00 Miscellaneous Information 1 ea NOTE XX ; Start 06/19/16 at 13:00 Glucose (Glutose) 15 gm Q15M PRN PO DECREASED GLUCOSE; Start 06/19/16 at 13:00 Glucose (Glutose) 22.5 gm Q15M PRN PO DECREASED GLUCOSE; Start 06/19/16 at 13: 00 Dextrose (D50w Syringe) 25 ml Q15M PRN IV DECREASED GLUCOSE; Start 06/19/16 at 13:00 Dextrose (D50w Syringe) 50 ml Q15M PRN IV DECREASED GLUCOSE; Start 06/19/16 at 13:00 Glucagon (Glucagen) 1 mg Q15M PRN IM DECREASED GLUCOSE; Start 06/19/16 at 13:00 Glucose (Glutose) 15 gm Q15M PRN BUCCAL DECREASED GLUCOSE; Start 06/19/16 at 13 :00 Enoxaparin Sodium 60 mg 60 mg AM SC Last administered on 06/20/16 10:36; Admin Dose 60 MG; Start 06/20/16 at 09:00 Vancomycin HCl (Vancocin) 250 ml @ 125 mls/hr Q8H IVPB Last administered on 06:26; Admin Dose 125 MLS/HR; Start 06/20/16 at 14:00 Lisinopril (Zestril) 5 mg DAILY NGT ; Start 06/21/16 at 09:00 Procedures Procedures PROCEDURE: XR Chest. CLINICAL INDICATION: Status post chest tube removal. History of STEMI. TECHNIQUE: Single frontal chest x-ray. COMPARISON: 06/20/2016 FINDINGS: The heart is enlarged. Aortic atherosclerotic vascular calcifications are identified. Increased vascular congestion and pulmonary edema is seen within the lungs, mildly improved when compared to the previous study. There is decreased layering pleural effusions when compared to the previous study. Atelectasis in the lung bases is stable. Post surgical median sternotomy wires are seen overlying the midline chest. Endotracheal tube and nasogastric tube and internal jugular Cordis catheter sheath are all in stable and good location , unchanged since the prior study. No other acute changes are seen. The surrounding osseous structures are unremarkable. IMPRESSION: 1. Cardiomegaly with improved congestion and edema and improved effusions within the lungs. 2. Stable lines and tubes in good position without evidence for pneumothorax. RPTAT: HMJB .Magdaleno Sevilla MD, MD Date Time Electronically viewed and signed by .Magdaleno Sevilla MD, MD on 06/20/2016 10:42 .B/ CC: RICKY MAS BOLATITO M. Jun 21, 2016 08:19
[2016-06-21] MEDS: DOCUSATE SODIUM 100 MG CAP PO SCH ×2 (09:11→20:05)
[2016-06-21] MEDS: ASPIRIN 81 MG TAB NGT SCH (09:11)
[2016-06-21] MEDS: LISINOPRIL 5 MG TAB NGT SCH (09:11)
[2016-06-21] MEDS: FAMOTIDINE 20 MG INJ IV SCH ×2 (09:11→20:16)
[2016-06-21] MEDS: CLOPIDOGREL 75 MG TAB NGT SCH (09:11)
[2016-06-21] MEDS: METOPROLOL 25 MG TAB NGT SCH ×2 (09:12→20:06)
[2016-06-21] MEDS: MUPIROCIN 2% 22 GM OINT TOP SCH ×2 (09:12→20:06)
[2016-06-21] MEDS: ENOXAPARIN 60 MG/0.6 ML SYG SC SCH (09:14)
[2016-06-21] MEDS: LEVETIRACETAM IV 500 MG in SOD CHLORIDE 0.9% 100 ML IVPB SCH ×2 (09:26→20:05)
--- NOTE | 2016-06-21 09:29 | RADRPT ---
PROCEDURE: XR Chest. CLINICAL INDICATION: Chest tube removal. TECHNIQUE: Chest x-ray, single view. COMPARISON: 06/20/2016. FINDINGS: The cardiac silhouette is magnified and unchanged in size and configuration. Aortic arch atheroscle rotic calcification is present. The endotracheal tube terminates within the mid trachea. The enter ic tube enters the stomach. A right internal jugular vascular sheath is in place. Low lung volumes are observed. Diminished opacification of the right lower lung is present. The left hemidiaphragm is obscured and unchanged. Atelectasis, pleural effusion and air space disease may be present. Th ere is no visible pneumothorax. Skeletal structures and upper abdomen are unremarkable. IMPRESSION: Hypoinflation with persistent obscuration of the left hemidiaphragm which may reflect the presence o f atelectasis, airspace disease and / or pleural effusion. No visible pneumothorax. RPTAT: AA .Phuong Holbrook MD, MD Date Time Electronically viewed and signed by .Phuong Holbrook MD, MD on 06/21/2016 09:28 .T/
[2016-06-21] MEDS: POTASSIUM CHLORIDE 50 ML IVPB PRN ×3 (09:47→13:32)
--- NOTE | 2016-06-21 10:11 | CONS ---
Date/Time of Note Date/Time of Note DATE: 06/21/16 TIME: 10:08 Assessment/Plan Assessment/Plan Additional Assessment/Plan Ventilator settings; assist control of 16, tidal volume 500, PEEP of 5, 30% FiO2. Chest x-ray was reviewed from today which is essentially clear. Endotracheal tube is at an adequate level. Sternal wires are seen. Next Assessment and recommendation; next 1. Patient admitted with acute VA and underwent emergent coronary angiography however stenting could not be done and the patient had to undergo emergent CABG surgery. 2. Some element of aspiration pneumonia however chest x-ray from today is markedly improved. 3. Mild fluid overload with significant interval improvement as well. Patient has been switched over to CPAP mode currently has excellent weaning parameters. I would recommend observing him for the next 30 minutes, to obtain an ABG after that and if the parameters are adequate, to extubate him. Meanwhile continue current supportive care. Consultation Date/Type/Reason Admit Date/Time Jun 16, 2016 at 17:32 Initial Consult Date 06/17/16 Type of Consultation: Pulmonary/critical care Referring Provider: BRICE MONTELONGO 24 HR Interval Summary Free Text/Dictation Patient's condition is stable. Patient is awake. And does not appear to be in any distress. Follows commands moves all 4 extremities. Has remained hemodynamically stable. Next General examination; middle aged man, on ventilator via endotracheal tube. Awake and alert. Exam/Review of Systems Vital Signs Vitals Vital Signs Date Time Temp Pulse Resp B/P Pulse Ox O2 Delivery O2 Flow Rate FiO2 06/21/16 09:14 84 06/21/16 05:10 24 100 35 06/21/16 05:00 96/57 Mechanical Ventilator 06/21/16 04:00 98.2 Intake and Output 06/20/16 06/20/16 06/21/16 15:00 23:00 07:00 Intake Total 1422.024 ml 1477.103 ml 1268 ml Output Total 1150 ml 2500 ml 875 ml Balance 272.024 ml -1022.897 ml 393 ml Exam H EENT examination; supple neck, no JVD. No lymphadenopathy. Midline trachea. Orally intubated. Pupils are midsize and reactive to light. Chest examination; clear to auscultation bilaterally. S1-S2 audible, no murmurs. Regular rhythm. There is a dressing applied over the sternum. Abdomen examination; soft, nondistended. No organomegaly. Bowel sounds audible. Nontender. Next Extremity examination; no peripheral edema. Pulses 1+ bilaterally. 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 Results Result Diagram: 06/21/16 0500 06/21/16 0500 Results 24 hrs Laboratory Tests Test 06/20/16 12:05 06/20/16 15:28 06/20/16 18:37 06/20/16 21:00 Vancomycin Level Trough 17.4 Bedside Glucose 123 100 94 Test 06/21/16 01:12 06/21/16 04:58 06/21/16 05:00 06/21/16 09:27 Bedside Glucose 104 136 116 Albumin 2.4 L Anion Gap 11 Basophils # 0.0 Basophils % 0.4 Blood Urea Nitrogen 12 Calcium Level 7.6 L Carbon Dioxide Level 29 Chloride Level 106 Creatine Kinase 263 #H Creatinine 0.84 Eosinophils # 1.1 H Eosinophils % 11.4 H Glucose Level 138 Hematocrit 27.6 L Hemoglobin 8.8 L Lymphocytes # 1.2 Lymphocytes % 13.2 L Magnesium Level 1.9 Mean Corpuscular Hemoglobin 29.4 Mean Corpuscular Hemoglobin Concent 31.9 L Mean Corpuscular Volume 92.3 Mean Platelet Volume 11.2 H Monocytes # 0.8 Monocytes % 8.7 Neutrophils # 6.1 Neutrophils % 65.7 Nucleated Red Blood Cells # 0.0 Nucleated Red Blood Cells % 0.4 H Phosphorus Level 2.6 Platelet Count 202 # Potassium Level 3.5 Red Blood Count 2.99 L Red Cell Distribution Width 14.1 Sodium Level 142 White Blood Count 9.3 # Medications Medications Current Medications Hydromorphone HCl (Dilaudid) 0.2 mg Q15M PRN IV PAIN LEVEL 1-5 Last administered on 06/17/16 14:18; Admin Dose 0.2 MG; Start 06/16/16 at 17:30 Hydromorphone HCl (Dilaudid) 0.4 mg Q15M PRN IV PAIN LEVEL 6-10 Last administered on 06/18/16 04:35; Admin Dose 0.4 MG; Start 06/16/16 at 17:30 Oxycodone/ Acetaminophen (Percocet (5/ 325)) 1 tab Q3H PRN PO PAIN LEVEL 1-5; Start 06/16/16 at 17:30 Oxycodone/ Acetaminophen (Percocet (5/ 325)) 2 tab Q3H PRN PO PAIN LEVEL 6-10; Start 06/16/16 at 17:30 Ondansetron HCl (Zofran Inj) 4 mg Q6H PRN IV NAUSEA AND/OR VOMITING; Start at 17:30 Famotidine (Pepcid Iv) 20 mg BID@08,20 IV Last administered on 06/21/16 09:11 ; Admin Dose 20 MG; Start 06/16/16 at 20:00 Acetaminophen 650 mg 650 mg Q3H PRN PO ELEVATED TEMPERATURE Last administered on 06/18/16 10:40; Admin Dose 650 MG; Start 06/16/16 at 17:30 Magnesium Sulfate/ Dextrose (Magnesium Sulfate 1 Gm/D5W) 100 ml @ 100 mls/hr PRN PRN IVPB PENDING LAB VALUE Last administered on 06/17/16 19:38; Admin Dose 100 MLS/HR; Start 06/16/16 at 17:30 Dextrose (D50w Syringe) 25 ml Q15M PRN IV Till BS 80 mg/dL or above x2 Last administered on 06/19/16 00:59; Admin Dose 25 ML; Start 06/16/16 at 17:30 Dextrose 50 ml 50 ml Q15M PRN IV Till BS 80 mg/dL or above x2 Last administered on 06/18/16 20:45; Admin Dose 50 ML; Start 06/16/16 at 17:30 Propofol (Diprivan) 100 ml @ 3.273 mls/ hr Q12H IV Last administered on 06:25; Admin Dose 7.201 MLS/HR; Start 06/16/16 at 17:30 Docusate Sodium 100 mg 100 mg BID PO Last administered on 06/21/16 09:11; Admin Dose 100 MG; Start 06/16/16 at 21:00 Levetiracetam 500 mg/Sodium Chloride 105 ml @ 420 mls/hr Q12 IVPB Last administered on 06/21/16 09:26; Admin Dose 420 MLS/HR; Start 06/16/16 at 21:00 Norepinephrine/ Dextrose (Levophed/D5W) 500 ml @ 1.87 mls/hr TITRATE IV Last administered on 06/18/16 01:59; Admin Dose 15 MLS/HR; Start 06/17/16 at 04:00 Acetaminophen (Tylenol Supp) 650 mg Q6H PRN [place] FEVER Last administered on 19:49; Admin Dose 650 MG; Start 06/16/16 at 22:00 Atorvastatin Calcium (Lipitor) 80 mg HS NGT Last administered on 06/20/16 20: 52; Admin Dose 80 MG; Start 06/17/16 at 21:00 Aspirin (Aspirin) 81 mg DAILY NGT Last administered on 06/21/16 09:11; Admin Dose 81 MG; Start 06/17/16 at 09:00 Clopidogrel Bisulfate (plaVIX) 75 mg DAILY NGT Last administered on 06/21/16 09:11; Admin Dose 75 MG; Start 06/17/16 at 09:00 Metoprolol Tartrate 25 mg 25 mg BID NGT Last administered on 06/21/16 09:12; Admin Dose 25 MG; Start 06/17/16 at 09:00 Midazolam HCl (Versed) 50 ml @ 1 mls/hr TITRATE IV Last administered on 18:15; Admin Dose 2 MLS/HR; Start 06/17/16 at 10:30 Amiodarone HCl (Cordarone) 400 mg BID NGT Last administered on 06/18/16 02:17 ; Admin Dose 400 MG; Start 06/18/16 at 02:00; Status Future Hold Mupirocin 1 applic 1 applic BID TOP Last administered on 06/21/16 09:12; Admin Dose 1 APPLIC; Start 06/18/16 at 12:00 Piperacillin Sod/ Tazobactam Sod 100 ml @ 200 mls/hr Q8 IVPB Last administered on 06/21/16 06:26; Admin Dose 200 MLS/HR; Start 06/18/16 at 20:00 Dextrose/Sodium Chloride (D5-NS) 1,000 ml @ 80 mls/hr [id number] IV Last administered on 06/20/16 20:00; Admin Dose 80 MLS/HR; Start 06/19/16 at 02:00 Insulin Aspart (Novolog Insulin Pen) NOVOLOG *MILD* ALGORI... Q4 SC ; Start at 13:00 Miscellaneous Information 1 ea NOTE XX ; Start 06/19/16 at 13:00 Glucose (Glutose) 15 gm Q15M PRN PO DECREASED GLUCOSE; Start 06/19/16 at 13:00 Glucose (Glutose) 22.5 gm Q15M PRN PO DECREASED GLUCOSE; Start 06/19/16 at 13: 00 Dextrose (D50w Syringe) 25 ml Q15M PRN IV DECREASED GLUCOSE; Start 06/19/16 at 13:00 Dextrose (D50w Syringe) 50 ml Q15M PRN IV DECREASED GLUCOSE; Start 06/19/16 at 13:00 Glucagon (Glucagen) 1 mg Q15M PRN IM DECREASED GLUCOSE; Start 06/19/16 at 13:00 Glucose (Glutose) 15 gm Q15M PRN BUCCAL DECREASED GLUCOSE; Start 06/19/16 at 13 :00 Enoxaparin Sodium 60 mg 60 mg AM SC Last administered on 06/21/16 09:14; Admin Dose 60 MG; Start 06/20/16 at 09:00 Vancomycin HCl (Vancocin) 250 ml @ 125 mls/hr Q8H IVPB Last administered on 06:26; Admin Dose 125 MLS/HR; Start 06/20/16 at 14:00 Lisinopril (Zestril) 5 mg DAILY NGT Last administered on 06/21/16 09:11; Admin Dose 5 MG; Start 06/21/16 at 09:00 RICKY MAS Jun 21, 2016 10:11
[2016-06-21 13:38] LABS: AADO2 Arterial 109.7 mmHg (7.0-24.0); Allen Test ACCEPTAB; Arterial Base Excess 3.7 mmol/L (-3.0-3); Arterial COHb 0.3 % (0.0-3.0); Arterial Fraction of Oxyhgb 96.3 % (93.0-99.0); Arterial HCO3 27.9 mmol/L (22.0-26.0); Arterial MetHb 0.3 % (0.0-1.5); Arterial Total Hemglobin 11.1 g/dl (12.0-18.0); Blood Gas PS 10; MODE VENT - CPAP
--- NOTE | 2016-06-21 13:40 | PN ---
Date/Time of Note Date/Time of Note DATE: 06/21/16 TIME: 13:33 Assessment/Plan VTE Prophylaxis VTE Prophylaxis Intervention: SCD's Lines/Catheters IV C[facility]ter Type (from [facility] Peripheral IV Urinary Cath still in place: Yes Reason Cath still needed: other (indicate) (intubated) Assessment/Plan Chief Complaint/Hosp Course Patient presents two days after discharge for SBO with a STEMI and VF arrest, has 3 vessel coronary disease and known cardiomyopathy, underwent emergent CABG. Problems: Assessment/Plan STEMI, s/p CABG postop day #5 Post op afib and aflutter, currently in NSR ischemic cardiomyopathy acute respiratory failure Recc: Continue asa, clopidogrel, statin, metoprolol, lisinopril Hopefully he can be extubated today On empiric antibiotics Subjective 24 Hr Interval Summary Free Text/Dictation He is intubated, on a cpap trial, has been on this mode for nearly 3 hours. He is awake, nods yes and no, points to breathing tube. Bunny at bedside. Subjective hx not possible: pt non-verbal Exam/Review of Systems Vital Signs Vitals Vital Signs Date Time Temp Pulse Resp B/P Pulse Ox O2 Delivery O2 Flow Rate FiO2 06/21/16 12:36 78 06/21/16 10:45 23 100 35 06/21/16 05:00 96/57 Mechanical Ventilator 06/21/16 04:00 98.2 Intake and Output 06/20/16 06/20/16 06/21/16 15:00 23:00 07:00 Intake Total 1422.024 ml 1477.103 ml 1268 ml Output Total 1150 ml 2500 ml 875 ml Balance 272.024 ml -1022.897 ml 393 ml Exam Constitutional: alert Head: normocephalic Eyes: EOMI, nl conjunctiva ENMT: intubated Neck: No bruits, No jvd Respiratory: clear to auscultation, normal air movement Cardiovascular: regular rate and rhythm, No murmurs/extra sounds Gastrointestinal: soft Musculoskeletal: nl extremities to inspection Extremities: edema Skin: laceration (left calf just below knee is bleeding) Results Result Diagram: 06/21/16 0500 06/21/16 0500 Results 24 hrs Laboratory Tests Test 06/20/16 15:28 06/20/16 18:37 06/20/16 21:00 06/21/16 01:12 Bedside Glucose 123 100 94 104 Test 06/21/16 04:58 06/21/16 05:00 06/21/16 09:27 06/21/16 11:55 Bedside Glucose 136 116 103 Albumin 2.4 L Anion Gap 11 Basophils # 0.0 Basophils % 0.4 Blood Urea Nitrogen 12 Calcium Level 7.6 L Carbon Dioxide Level 29 Chloride Level 106 Creatine Kinase 263 #H Creatinine 0.84 Eosinophils # 1.1 H Eosinophils % 11.4 H Glucose Level 138 Hematocrit 27.6 L Hemoglobin 8.8 L Lymphocytes # 1.2 Lymphocytes % 13.2 L Magnesium Level 1.9 Mean Corpuscular Hemoglobin 29.4 Mean Corpuscular Hemoglobin Concent 31.9 L Mean Corpuscular Volume 92.3 Mean Platelet Volume 11.2 H Monocytes # 0.8 Monocytes % 8.7 Neutrophils # 6.1 Neutrophils % 65.7 Nucleated Red Blood Cells # 0.0 Nucleated Red Blood Cells % 0.4 H Phosphorus Level 2.6 Platelet Count 202 # Potassium Level 3.5 Red Blood Count 2.99 L Red Cell Distribution Width 14.1 Sodium Level 142 White Blood Count 9.3 # Medications Medications Current Medications Hydromorphone HCl (Dilaudid) 0.2 mg Q15M PRN IV PAIN LEVEL 1-5 Last administered on 06/17/16 14:18; Admin Dose 0.2 MG; Start 06/16/16 at 17:30 Hydromorphone HCl (Dilaudid) 0.4 mg Q15M PRN IV PAIN LEVEL 6-10 Last administered on 06/18/16 04:35; Admin Dose 0.4 MG; Start 06/16/16 at 17:30 Oxycodone/ Acetaminophen (Percocet (5/ 325)) 1 tab Q3H PRN PO PAIN LEVEL 1-5; Start 06/16/16 at 17:30 Oxycodone/ Acetaminophen (Percocet (5/ 325)) 2 tab Q3H PRN PO PAIN LEVEL 6-10; Start 06/16/16 at 17:30 Ondansetron HCl (Zofran Inj) 4 mg Q6H PRN IV NAUSEA AND/OR VOMITING; Start at 17:30 Famotidine (Pepcid Iv) 20 mg BID@08,20 IV Last administered on 06/21/16 09:11 ; Admin Dose 20 MG; Start 06/16/16 at 20:00 Acetaminophen 650 mg 650 mg Q3H PRN PO ELEVATED TEMPERATURE Last administered on 06/18/16 10:40; Admin Dose 650 MG; Start 06/16/16 at 17:30 Magnesium Sulfate/ Dextrose (Magnesium Sulfate 1 Gm/D5W) 100 ml @ 100 mls/hr PRN PRN IVPB PENDING LAB VALUE Last administered on 06/17/16 19:38; Admin Dose 100 MLS/HR; Start 06/16/16 at 17:30 Dextrose (D50w Syringe) 25 ml Q15M PRN IV Till BS 80 mg/dL or above x2 Last administered on 06/19/16 00:59; Admin Dose 25 ML; Start 06/16/16 at 17:30 Dextrose 50 ml 50 ml Q15M PRN IV Till BS 80 mg/dL or above x2 Last administered on 06/18/16 20:45; Admin Dose 50 ML; Start 06/16/16 at 17:30 Propofol (Diprivan) 100 ml @ 3.273 mls/ hr Q12H IV Last administered on 06:25; Admin Dose 7.201 MLS/HR; Start 06/16/16 at 17:30 Docusate Sodium 100 mg 100 mg BID PO Last administered on 06/21/16 09:11; Admin Dose 100 MG; Start 06/16/16 at 21:00 Levetiracetam 500 mg/Sodium Chloride 105 ml @ 420 mls/hr Q12 IVPB Last administered on 06/21/16 09:26; Admin Dose 420 MLS/HR; Start 06/16/16 at 21:00 Norepinephrine/ Dextrose (Levophed/D5W) 500 ml @ 1.87 mls/hr TITRATE IV Last administered on 06/18/16 01:59; Admin Dose 15 MLS/HR; Start 06/17/16 at 04:00 Acetaminophen (Tylenol Supp) 650 mg Q6H PRN [place] FEVER Last administered on 19:49; Admin Dose 650 MG; Start 06/16/16 at 22:00 Atorvastatin Calcium (Lipitor) 80 mg HS NGT Last administered on 06/20/16 20: 52; Admin Dose 80 MG; Start 06/17/16 at 21:00 Aspirin (Aspirin) 81 mg DAILY NGT Last administered on 06/21/16 09:11; Admin Dose 81 MG; Start 06/17/16 at 09:00 Clopidogrel Bisulfate (plaVIX) 75 mg DAILY NGT Last administered on 06/21/16 09:11; Admin Dose 75 MG; Start 06/17/16 at 09:00 Metoprolol Tartrate 25 mg 25 mg BID NGT Last administered on 06/21/16 09:12; Admin Dose 25 MG; Start 06/17/16 at 09:00 Midazolam HCl (Versed) 50 ml @ 1 mls/hr TITRATE IV Last administered on 18:15; Admin Dose 2 MLS/HR; Start 06/17/16 at 10:30 Amiodarone HCl (Cordarone) 400 mg BID NGT Last administered on 06/18/16 02:17 ; Admin Dose 400 MG; Start 06/18/16 at 02:00; Status Future Hold Mupirocin 1 applic 1 applic BID TOP Last administered on 06/21/16 09:12; Admin Dose 1 APPLIC; Start 06/18/16 at 12:00 Piperacillin Sod/ Tazobactam Sod 100 ml @ 200 mls/hr Q8 IVPB Last administered on 06/21/16 06:26; Admin Dose 200 MLS/HR; Start 06/18/16 at 20:00 Dextrose/Sodium Chloride (D5-NS) 1,000 ml @ 80 mls/hr [id number] IV Last administered on 06/20/16 20:00; Admin Dose 80 MLS/HR; Start 06/19/16 at 02:00 Insulin Aspart (Novolog Insulin Pen) NOVOLOG *MILD* ALGORI... Q4 SC ; Start at 13:00 Miscellaneous Information 1 ea NOTE XX ; Start 06/19/16 at 13:00 Glucose (Glutose) 15 gm Q15M PRN PO DECREASED GLUCOSE; Start 06/19/16 at 13:00 Glucose (Glutose) 22.5 gm Q15M PRN PO DECREASED GLUCOSE; Start 06/19/16 at 13: 00 Dextrose (D50w Syringe) 25 ml Q15M PRN IV DECREASED GLUCOSE; Start 06/19/16 at 13:00 Dextrose (D50w Syringe) 50 ml Q15M PRN IV DECREASED GLUCOSE; Start 06/19/16 at 13:00 Glucagon (Glucagen) 1 mg Q15M PRN IM DECREASED GLUCOSE; Start 06/19/16 at 13:00 Glucose (Glutose) 15 gm Q15M PRN BUCCAL DECREASED GLUCOSE; Start 06/19/16 at 13 :00 Enoxaparin Sodium 60 mg 60 mg AM SC Last administered on 06/21/16 09:14; Admin Dose 60 MG; Start 06/20/16 at 09:00 Vancomycin HCl (Vancocin) 250 ml @ 125 mls/hr Q8H IVPB Last administered on 06:26; Admin Dose 125 MLS/HR; Start 06/20/16 at 14:00 Lisinopril (Zestril) 5 mg DAILY NGT Last administered on 06/21/16 09:11; Admin Dose 5 MG; Start 06/21/16 at 09:00 BAM BERTRAND Jun 21, 2016 13:40
--- NOTE | 2016-06-21 16:09 | CONS ---
Date/Time of Note Date/Time of Note DATE: 06/21/16 TIME: 16:06 Assessment/Plan Assessment/Plan Additional Assessment/Plan 1. Severe sepsis vs SIRS - postop fever resolving and leukocytosis downward trending (no obvious infiltrate seen on x-ray; lactic acid WNL; tee cx negative to date) 2. STEMI s/p emergent CABG 06/16/16 (Pt presented with CP two days after being discharged from [facility] for SBO) 3. Cardiogenic shock; s/p IABP and pressors 4. S/p Vfib arrest x2 on 06/16/16 5. Severe 3V CAD 6. Postop afib and aflutter - currently in NSR 7. 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 Methamphetamine user per + urine tox screen 9. Post op respiratory failure - for possible vent weaning 10. Postop anemia 11. Thrombocytopenia 12. Moderate to severe protein calorie malnutrition 13. MRSA nasal colonization 14. Obesity 15. Hx recent SBO 06/10/16 - treated medically 16. Hx Large basal cell carcinoma of the upper mid back s/p excision 08/17/14 17. Hx back wound infection with MSSA, Enterobacter Cloacae, Klebsiella Oxytoca , Corynebacter Jeikeium Grp JK 09/16/14 18. Hx repair of a large ventral incisional hernia in [facility] in 2009. Recommendations: - Continue Vanco (06/16/16) and Pip/tazo (06/18/16) - F/u final blood, urine and respiratory cx (all negative to date) - F/u procalc (pending) - Continue bactroban; contact isolation for MRSA Consultation Date/Type/Reason Admit Date/Time Jun 16, 2016 at 17:32 Initial Consult Date 06/18/16 Type of Consultation: Infectious Diseases Referring Provider: BRICE MONTELONGO 24 HR Interval Summary Free Text/Dictation cxr still with left sided LL opacification, WBC improved further today, still with temperatures in the 99s, but afebrile. No new positive cultures. Just extubated is on N/C. Some gross hematuria in F/C is noted Exam/Review of Systems Vital Signs Vitals Vital Signs Date Time Temp Pulse Resp B/P Pulse Ox O2 Delivery O2 Flow Rate FiO2 06/21/16 14:00 75 21 127/68 100 Mechanical Ventilator 06/21/16 12:00 99.3 06/21/16 10:45 35 Intake and Output 06/20/16 06/20/16 06/21/16 15:00 23:00 07:00 Intake Total 1422.024 ml 1477.103 ml 1268 ml Output Total 1150 ml 2500 ml 875 ml Balance 272.024 ml -1022.897 ml 393 ml Exam Constitutional: obese, well developed, NGT right nare on N/C Head: atraumatic, normocephalic Neck: other (Right IJ central line c/d/i), supple Respiratory: clear to auscultation, other (chest tube intact without leak) Cardiovascular: other (sternal dressing c/d/i), regular rate and rhythm Gastrointestinal: bowel sounds, other (NGT clamped and intact), soft Genitourinary - Male: other (Solis cath intact) Extremities: No cyanosis, No edema Neurological: other (Sedated with sedation recently discontinued; Moves BLE weakly; no commands) Skin: other (Right groin dressing and left groin derma ibarra intact; BLE hyperpigmentation noted) Results Result Diagram: 06/21/16 0500 06/21/16 0500 Results 24 hrs Laboratory Tests Test 06/20/16 18:37 06/20/16 21:00 06/21/16 01:12 06/21/16 04:58 Bedside Glucose 100 94 104 136 Test 06/21/16 05:00 06/21/16 09:27 06/21/16 11:55 06/21/16 12:45 Albumin 2.4 L Anion Gap 11 Basophils # 0.0 Basophils % 0.4 Blood Urea Nitrogen 12 Calcium Level 7.6 L Carbon Dioxide Level 29 Chloride Level 106 Creatine Kinase 263 #H Creatinine 0.84 Eosinophils # 1.1 H Eosinophils % 11.4 H Glucose Level 138 Hematocrit 27.6 L Hemoglobin 8.8 L Lymphocytes # 1.2 Lymphocytes % 13.2 L Magnesium Level 1.9 Mean Corpuscular Hemoglobin 29.4 Mean Corpuscular Hemoglobin Concent 31.9 L Mean Corpuscular Volume 92.3 Mean Platelet Volume 11.2 H Monocytes # 0.8 Monocytes % 8.7 Neutrophils # 6.1 Neutrophils % 65.7 Nucleated Red Blood Cells # 0.0 Nucleated Red Blood Cells % 0.4 H Phosphorus Level 2.6 Platelet Count 202 # Potassium Level 3.5 Red Blood Count 2.99 L Red Cell Distribution Width 14.1 Sodium Level 142 White Blood Count 9.3 # Bedside Glucose 116 103 Arterial Blood HCO3 27.9 H Arterial Blood Base Excess 3.7 H Arterial Blood Oxygen Saturation 96.9 Kyle Test ACCEPTAB Arterial Blood Gas Puncture Site Right Radial Arterial Blood Carboxyhemoglobin 0.3 Arterial Blood Date Drawn 06/21/2016 1:22:18 PM Arterial Blood Methemoglobin 0.3 Arterial Blood pCO2 (Temp correct) 40.5 Arterial Blood pH (Temp corrected) 7.456 H Arterial Blood pO2 (Temp corrected) 92.8 Blood Gas A-a O2 Differential 109.7 H Blood Gas Actual Respiration Rate 21 Blood Gas Low PEEP Setting 5.0 Blood Gas Modality VENT - CPAP Blood Gas Notified Time 06/21/2016 1:37:47 PM Blood Gas Notified Whom DHOLT Blood Gas Pressure Support 10 Blood Gas Specimen Source Blood arterial Blood Gas Temperature 37.0 Blood Gas Tidal Volume 545.0 FiO2 35.0 Oxyhemoglobin Percent 96.3 Total Hemoglobin 11.1 L Medications Medications Current Medications Hydromorphone HCl (Dilaudid) 0.2 mg Q15M PRN IV PAIN LEVEL 1-5 Last administered on 06/17/16 14:18; Admin Dose 0.2 MG; Start 06/16/16 at 17:30 Hydromorphone HCl (Dilaudid) 0.4 mg Q15M PRN IV PAIN LEVEL 6-10 Last administered on 06/18/16 04:35; Admin Dose 0.4 MG; Start 06/16/16 at 17:30 Oxycodone/ Acetaminophen (Percocet (5/ 325)) 1 tab Q3H PRN PO PAIN LEVEL 1-5; Start 06/16/16 at 17:30 Oxycodone/ Acetaminophen (Percocet (5/ 325)) 2 tab Q3H PRN PO PAIN LEVEL 6-10; Start 06/16/16 at 17:30 Ondansetron HCl (Zofran Inj) 4 mg Q6H PRN IV NAUSEA AND/OR VOMITING; Start at 17:30 Famotidine (Pepcid Iv) 20 mg BID@08,20 IV Last administered on 06/21/16 09:11 ; Admin Dose 20 MG; Start 06/16/16 at 20:00 Acetaminophen 650 mg 650 mg Q3H PRN PO ELEVATED TEMPERATURE Last administered on 06/18/16 10:40; Admin Dose 650 MG; Start 06/16/16 at 17:30 Magnesium Sulfate/ Dextrose (Magnesium Sulfate 1 Gm/D5W) 100 ml @ 100 mls/hr PRN PRN IVPB PENDING LAB VALUE Last administered on 06/17/16 19:38; Admin Dose 100 MLS/HR; Start 06/16/16 at 17:30 Dextrose (D50w Syringe) 25 ml Q15M PRN IV Till BS 80 mg/dL or above x2 Last administered on 06/19/16 00:59; Admin Dose 25 ML; Start 06/16/16 at 17:30 Dextrose 50 ml 50 ml Q15M PRN IV Till BS 80 mg/dL or above x2 Last administered on 06/18/16 20:45; Admin Dose 50 ML; Start 06/16/16 at 17:30 Propofol (Diprivan) 100 ml @ 3.273 mls/ hr Q12H IV Last administered on 06:25; Admin Dose 7.201 MLS/HR; Start 06/16/16 at 17:30 Docusate Sodium 100 mg 100 mg BID PO Last administered on 06/21/16 09:11; Admin Dose 100 MG; Start 06/16/16 at 21:00 Levetiracetam 500 mg/Sodium Chloride 105 ml @ 420 mls/hr Q12 IVPB Last administered on 06/21/16 09:26; Admin Dose 420 MLS/HR; Start 06/16/16 at 21:00 Norepinephrine/ Dextrose (Levophed/D5W) 500 ml @ 1.87 mls/hr TITRATE IV Last administered on 06/18/16 01:59; Admin Dose 15 MLS/HR; Start 06/17/16 at 04:00 Acetaminophen (Tylenol Supp) 650 mg Q6H PRN [place] FEVER Last administered on 19:49; Admin Dose 650 MG; Start 06/16/16 at 22:00 Atorvastatin Calcium (Lipitor) 80 mg HS NGT Last administered on 06/20/16 20: 52; Admin Dose 80 MG; Start 06/17/16 at 21:00 Aspirin (Aspirin) 81 mg DAILY NGT Last administered on 06/21/16 09:11; Admin Dose 81 MG; Start 06/17/16 at 09:00 Clopidogrel Bisulfate (plaVIX) 75 mg DAILY NGT Last administered on 06/21/16 09:11; Admin Dose 75 MG; Start 06/17/16 at 09:00 Metoprolol Tartrate 25 mg 25 mg BID NGT Last administered on 06/21/16 09:12; Admin Dose 25 MG; Start 06/17/16 at 09:00 Midazolam HCl (Versed) 50 ml @ 1 mls/hr TITRATE IV Last administered on 18:15; Admin Dose 2 MLS/HR; Start 06/17/16 at 10:30 Amiodarone HCl (Cordarone) 400 mg BID NGT Last administered on 06/18/16 02:17 ; Admin Dose 400 MG; Start 06/18/16 at 02:00; Status Future Hold Mupirocin 1 applic 1 applic BID TOP Last administered on 06/21/16 09:12; Admin Dose 1 APPLIC; Start 06/18/16 at 12:00 Piperacillin Sod/ Tazobactam Sod 100 ml @ 200 mls/hr Q8 IVPB Last administered on 06/21/16 15:08; Admin Dose 200 MLS/HR; Start 06/18/16 at 20:00 Dextrose/Sodium Chloride (D5-NS) 1,000 ml @ 80 mls/hr [id number] IV Last administered on 06/20/16 20:00; Admin Dose 80 MLS/HR; Start 06/19/16 at 02:00 Insulin Aspart (Novolog Insulin Pen) NOVOLOG *MILD* ALGORI... Q4 SC ; Start at 13:00 Miscellaneous Information 1 ea NOTE XX ; Start 06/19/16 at 13:00 Glucose (Glutose) 15 gm Q15M PRN PO DECREASED GLUCOSE; Start 06/19/16 at 13:00 Glucose (Glutose) 22.5 gm Q15M PRN PO DECREASED GLUCOSE; Start 06/19/16 at 13: 00 Dextrose (D50w Syringe) 25 ml Q15M PRN IV DECREASED GLUCOSE; Start 06/19/16 at 13:00 Dextrose (D50w Syringe) 50 ml Q15M PRN IV DECREASED GLUCOSE; Start 06/19/16 at 13:00 Glucagon (Glucagen) 1 mg Q15M PRN IM DECREASED GLUCOSE; Start 06/19/16 at 13:00 Glucose (Glutose) 15 gm Q15M PRN BUCCAL DECREASED GLUCOSE; Start 06/19/16 at 13 :00 Enoxaparin Sodium 60 mg 60 mg AM SC Last administered on 06/21/16 09:14; Admin Dose 60 MG; Start 06/20/16 at 09:00 Vancomycin HCl (Vancocin) 250 ml @ 125 mls/hr Q8H IVPB Last administered on 13:35; Admin Dose 125 MLS/HR; Start 06/20/16 at 14:00 Lisinopril (Zestril) 5 mg DAILY NGT Last administered on 06/21/16 09:11; Admin Dose 5 MG; Start 06/21/16 at 09:00 Miscellaneous Information (*Rx Drug Level Order Reminder*) VANCOMYCIN TROUGH AT 2100 ONCE ONCE XX ; Start 06/21/16 at 21:00; Stop 06/21/16 at 21:01 KORINA BEY Jun 21, 2016 16:09
[2016-06-21] MEDS: ATORVASTATIN 80 MG TAB NGT SCH (20:05)
[2016-06-22] VITALS (17 sets, daily range): BP systolic 80–141; BP diastolic 58–76; PULSE 79–89; RESP 17–26
[2016-06-22] MEDS: INSULIN ASPART [NOVOLOG] 3 ML PEN SC SCH ×2 (01:00→05:00)
[2016-06-22] MEDS: PROPOFOL 100 ML IV SCH (05:30)
[2016-06-22] MEDS: DEXTROSE 5%-0.9% NACL 1,000 ML IV SCH (05:39)
[2016-06-22] MEDS: FUROSEMIDE 40 MG INJ IV SCH (06:11)
[2016-06-22] MEDS: PIPER-TAZO 3.375 GM IV (PMX) 100 ML IVPB SCH ×3 (06:11→21:59)
[2016-06-22] MEDS: VANCOMYCIN 1 GM in NS 250 ML IVPB SCH (06:12)
[2016-06-22 06:14] LABS: ADD SCAN DIFF NO
[2016-06-22 06:34] LABS: INR 1.19; PROTIME 15.2 Sec (12.2-14.2); PT RATIO 1.2
[2016-06-22 06:35] LABS: PARTIAL THROMBOPLASTIN TIME 31.1 Sec (25.0-35.0)
[2016-06-22 06:41] LABS: ALBUMIN 2.7 g/dl (3.3-4.9); POTASSIUM 3.7 mmol/L (3.5-5.1)
[2016-06-22 06:43] LABS: CREATININE 0.85 mg/dl (0.61-1.24)
[2016-06-22 06:44] LABS: CALCIUM 8.1 mg/dl (8.4-10.2); PHOSPHORUS 2.8 mg/dl (2.5-4.9)
[2016-06-22 06:58] LABS: BASOPHILS % 0.4 % (0.0-2.0); EOSINOPHILS # 1.1 10^3/ul (0.0-0.5); EOSINOPHILS % 10.7 % (0.0-7.0); HEMATOCRIT 30.7 % (42.0-52.0); LYMPHOCYTES # 1.2 10^3/ul (0.8-2.9); LYMPHOCYTES % 11.6 % (15.0-51.0); MEAN CORPUSCULAR HEMOGLOBIN 29.6 pg (29.0-33.0); MEAN CORPUSCULAR HGB CONC 32.6 g/dl (32.0-37.0); MEAN CORPUSCULAR VOLUME 90.8 fl (82.0-101.0); MEAN PLATELET VOLUME 10.7 fl (7.4-10.4); MONOCYTES % 10.1 % (0.0-11.0); NEUTROPHIL # 6.8 10^3/ul (1.6-7.5); NEUTROPHILS % 66.4 % (39.0-77.0); PLATELET COUNT 285 10^3/UL (140-415); RED BLOOD COUNT 3.38 10^6/ul (4.70-6.10); RED CELL DISTRIBUTION WIDTH 13.7 % (11.5-14.5); WHITE BLOOD COUNT 10.3 10^3/ul (4.8-10.8)
--- NOTE | 2016-06-22 07:15 | RADRPT ---
PROCEDURE: XR Chest. CLINICAL INDICATION: Respiratory failure TECHNIQUE: A single AP view of the chest was obtained. COMPARISON: Chest x-ray dated FINDINGS: There is a right internal jugular Cordis catheter with tip in the upper SVC. The endotracheal tube a nd enteric tube have been removed. Lung volumes are low. There is blunting of the left costophrenic angle. No focal airspace opacific ation or pneumothorax is seen. The cardiomediastinal silhouette is mildly enlarged. Calcifications are seen within the aortic arch. There are post cardiac surgery changes with sternotomy wires. The osseous structures are unremarkable. IMPRESSION: 1. Small left pleural effusion. There is mild improved aeration of the left lung base when compare d to the prior examination. 2. Mild cardiomegaly and aortic atherosclerosis. 3. Stable post cardiac surgery changes. 4. Tubes and lines, as described above. RPTAT: HH .Lorna Pena MD, MD Date Time Electronically viewed and signed by .Lorna Pena MD, on 06/22/2016 07:15 .G/
[2016-06-22] MEDS: FAMOTIDINE 20 MG INJ IV SCH (07:37)
[2016-06-22] MEDS: POTASSIUM CHLORIDE 50 ML IVPB PRN ×2 (07:37→09:07)
[2016-06-22] MEDS: LEVETIRACETAM IV 500 MG in SOD CHLORIDE 0.9% 100 ML IVPB SCH (07:37)
[2016-06-22] MEDS: ASPIRIN 81 MG TAB NGT SCH (09:06)
[2016-06-22] MEDS: METOPROLOL 25 MG TAB NGT SCH ×2 (09:06→20:49)
[2016-06-22] MEDS: LISINOPRIL 5 MG TAB NGT SCH (09:06)
[2016-06-22] MEDS: CLOPIDOGREL 75 MG TAB NGT SCH (09:06)
--- NOTE | 2016-06-22 09:09 | CONS ---
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 recommendations: - d/c empiric vancomycin (06/16/16) - can de-escalate pip/tazo soon (06/18/16) - start nystatin for thrush - Continue bactroban; contact isolation for MRSA management d/w Pt and his RN the critical care time I took to care for this Pt today was from 0830 to 0900 Problems: Consultation Date/Type/Reason Admit Date/Time Jun 16, 2016 at 17:32 Initial Consult Date 06/18/16 Type of Consultation: Infectious Diseases Referring Provider: BRICE MONTELONGO 24 HR Interval Summary Free Text/Dictation confused Subjective hx not possible: other (confused) Constitutional: no complaints Detailed Summary Eyes: no complaints ENT: no complaints Respiratory: no complaints Cardiovascular: no complaints Gastrointestinal: no complaints Skin: skin lesions (pain from the wound on the chest) Exam/Review of Systems Vital Signs Vitals Vital Signs Date Time Temp Pulse Resp B/P Pulse Ox O2 Delivery O2 Flow Rate FiO2 06/22/16 08:00 2.0 06/22/16 04:00 85 06/22/16 03:00 22 114/64 98 Nasal Cannula 06/22/16 00:00 98.5 06/21/16 17:17 28 Intake and Output 2/06/21/16 06/22/16 15:00 23:00 07:00 Intake Total 834.201 ml 1155 ml 785 ml Output Total 1800 ml 3300 ml 125 ml Balance -965.799 ml -2145 ml 660 ml Exam Constitutional: frail Psych: confusion Head: atraumatic, normocephalic Eyes: nl conjunctiva, nl lids ENMT: nl external ears & nose, other (thrush) Neck: supple Respiratory: crackles/rales Cardiovascular: nl pulses, regular rate and rhythm Gastrointestinal: non-tender, soft Extremities: normal pulses, No edema Neurological: confused, lethargic Skin: other (wound on the chest wall is covered c/d/i) Results Result Diagram: 06/22/16 0550 06/22/16 0550 Results 24 hrs Laboratory Tests Test 06/21/16 09:27 06/21/16 11:55 06/21/16 12:45 06/21/16 17:51 Bedside Glucose 116 103 83 Arterial Blood HCO3 27.9 H Arterial Blood Base Excess 3.7 H Arterial Blood Oxygen Saturation 96.9 Kyle Test ACCEPTAB Arterial Blood Gas Puncture Site Right Radial Arterial Blood Carboxyhemoglobin 0.3 Arterial Blood Date Drawn 06/21/2016 1:22:18 PM Arterial Blood Methemoglobin 0.3 Arterial Blood pCO2 (Temp correct) 40.5 Arterial Blood pH (Temp corrected) 7.456 H Arterial Blood pO2 (Temp corrected) 92.8 Blood Gas A-a O2 Differential 109.7 H Blood Gas Actual Respiration Rate 21 Blood Gas Low PEEP Setting 5.0 Blood Gas Modality VENT - CPAP Blood Gas Notified Time 06/21/2016 1:37:47 PM Blood Gas Notified Whom DHOLT Blood Gas Pressure Support 10 Blood Gas Specimen Source Blood arterial Blood Gas Temperature 37.0 Blood Gas Tidal Volume 545.0 FiO2 35.0 Oxyhemoglobin Percent 96.3 Total Hemoglobin 11.1 L Test 06/21/16 20:03 06/21/16 21:00 06/21/16 21:37 06/22/16 01:13 Potassium Level 3.6 Vancomycin Level Trough 14.4 Bedside Glucose 99 118 Test 06/22/16 05:43 06/22/16 05:50 Bedside Glucose 95 Activated Partial Thromboplast Time 31.1 Albumin 2.7 L Anion Gap 13 Basophils # 0.0 Basophils % 0.4 Blood Urea Nitrogen 11 Calcium Level 8.1 L Carbon Dioxide Level 29 Chloride Level 104 Creatinine 0.85 Eosinophils # 1.1 H Eosinophils % 10.7 H Glucose Level 111 Hematocrit 30.7 L Hemoglobin 10.0 L INR International Normalized Ratio 1.19 Lymphocytes # 1.2 Lymphocytes % 11.6 L Mean Corpuscular Hemoglobin 29.6 Mean Corpuscular Hemoglobin Concent 32.6 Mean Corpuscular Volume 90.8 Mean Platelet Volume 10.7 H Monocytes # 1.0 H Monocytes % 10.1 Neutrophils # 6.8 Neutrophils % 66.4 Nucleated Red Blood Cells # 0.0 Nucleated Red Blood Cells % 0.0 Phosphorus Level 2.8 Platelet Count 285 # Potassium Level 3.7 Prothrombin Time 15.2 H Prothrombin Time Ratio 1.2 Red Blood Count 3.38 L Red Cell Distribution Width 13.7 Sodium Level 142 White Blood Count 10.3 Medications Medications Current Medications Hydromorphone HCl (Dilaudid) 0.2 mg Q15M PRN IV PAIN LEVEL 1-5 Last administered on 06/17/16 14:18; Admin Dose 0.2 MG; Start 06/16/16 at 17:30 Hydromorphone HCl (Dilaudid) 0.4 mg Q15M PRN IV PAIN LEVEL 6-10 Last administered on 06/18/16 04:35; Admin Dose 0.4 MG; Start 06/16/16 at 17:30 Oxycodone/ Acetaminophen (Percocet (5/ 325)) 1 tab Q3H PRN PO PAIN LEVEL 1-5; Start 06/16/16 at 17:30 Oxycodone/ Acetaminophen (Percocet (5/ 325)) 2 tab Q3H PRN PO PAIN LEVEL 6-10; Start 06/16/16 at 17:30 Ondansetron HCl (Zofran Inj) 4 mg Q6H PRN IV NAUSEA AND/OR VOMITING; Start at 17:30 Famotidine (Pepcid Iv) 20 mg BID@08,20 IV Last administered on 06/22/16 07:37 ; Admin Dose 20 MG; Start 06/16/16 at 20:00 Acetaminophen 650 mg 650 mg Q3H PRN PO ELEVATED TEMPERATURE Last administered on 06/18/16 10:40; Admin Dose 650 MG; Start 06/16/16 at 17:30 Magnesium Sulfate/ Dextrose 100 ml @ 100 mls/hr PRN PRN IVPB PENDING LAB VALUE Last administered on 06/17/16 19:38; Admin Dose 100 MLS/HR; Start at 17:30 Propofol (Diprivan) 100 ml @ 3.273 mls/ hr Q12H IV Last administered on 06:25; Admin Dose 7.201 MLS/HR; Start 06/16/16 at 17:30 Docusate Sodium 100 mg 100 mg BID PO Last administered on 06/21/16 20:05; Admin Dose 100 MG; Start 06/16/16 at 21:00 Levetiracetam 500 mg/Sodium Chloride 105 ml @ 420 mls/hr Q12 IVPB Last administered on 06/22/16 07:37; Admin Dose 420 MLS/HR; Start 06/16/16 at 21:00 Norepinephrine/ Dextrose (Levophed/D5W) 500 ml @ 1.87 mls/hr TITRATE IV Last administered on 06/18/16 01:59; Admin Dose 15 MLS/HR; Start 06/17/16 at 04:00 Acetaminophen (Tylenol Supp) 650 mg Q6H PRN [place] FEVER Last administered on 19:49; Admin Dose 650 MG; Start 06/16/16 at 22:00 Atorvastatin Calcium (Lipitor) 80 mg HS NGT Last administered on 06/21/16 20: 05; Admin Dose 80 MG; Start 06/17/16 at 21:00 Aspirin (Aspirin) 81 mg DAILY NGT Last administered on 06/21/16 09:11; Admin Dose 81 MG; Start 06/17/16 at 09:00 Clopidogrel Bisulfate (plaVIX) 75 mg DAILY NGT Last administered on 06/21/16 09:11; Admin Dose 75 MG; Start 06/17/16 at 09:00 Metoprolol Tartrate 25 mg 25 mg BID NGT Last administered on 06/21/16 20:06; Admin Dose 25 MG; Start 06/17/16 at 09:00 Midazolam HCl (Versed) 50 ml @ 1 mls/hr TITRATE IV Last administered on 18:15; Admin Dose 2 MLS/HR; Start 06/17/16 at 10:30 Amiodarone HCl (Cordarone) 400 mg BID NGT Last administered on 06/18/16 02:17 ; Admin Dose 400 MG; Start 06/18/16 at 02:00; Status Future Hold Mupirocin 1 applic 1 applic BID TOP Last administered on 06/21/16 20:06; Admin Dose 1 APPLIC; Start 06/18/16 at 12:00 Piperacillin Sod/ Tazobactam Sod 100 ml @ 200 mls/hr Q8 IVPB Last administered on 06/22/16 06:11; Admin Dose 200 MLS/HR; Start 06/18/16 at 20:00 Dextrose/Sodium Chloride (D5-NS) 1,000 ml @ 80 mls/hr [id number] IV Last administered on 06/22/16 05:39; Admin Dose 80 MLS/HR; Start 06/19/16 at 02:00 Miscellaneous Information 1 ea NOTE XX ; Start 06/19/16 at 13:00 Glucose (Glutose) 15 gm Q15M PRN PO DECREASED GLUCOSE; Start 06/19/16 at 13:00 Glucose (Glutose) 22.5 gm Q15M PRN PO DECREASED GLUCOSE; Start 06/19/16 at 13: 00 Dextrose (D50w Syringe) 25 ml Q15M PRN IV DECREASED GLUCOSE; Start 06/19/16 at 13:00 Dextrose (D50w Syringe) 50 ml Q15M PRN IV DECREASED GLUCOSE; Start 06/19/16 at 13:00 Glucagon (Glucagen) 1 mg Q15M PRN IM DECREASED GLUCOSE; Start 06/19/16 at 13:00 Glucose (Glutose) 15 gm Q15M PRN BUCCAL DECREASED GLUCOSE; Start 06/19/16 at 13 :00 Enoxaparin Sodium 60 mg 60 mg AM SC Last administered on 06/21/16 09:14; Admin Dose 60 MG; Start 06/20/16 at 09:00 Vancomycin HCl (Vancocin) 250 ml @ 125 mls/hr Q8H IVPB Last administered on 06:12; Admin Dose 125 MLS/HR; Start 06/20/16 at 14:00 Lisinopril (Zestril) 5 mg DAILY NGT Last administered on 06/21/16 09:11; Admin Dose 5 MG; Start 06/21/16 at 09:00 Insulin Aspart (Novolog Insulin Pen) NOVOLOG *MILD* ALGORI... Q6 SC ; Start at 12:00 NATASHA LUIS M.D. Jun 22, 2016 09:09
[2016-06-22] MEDS: MUPIROCIN 2% 22 GM OINT TOP SCH ×2 (09:13→20:48)
[2016-06-22] MEDS: DOCUSATE SODIUM 100 MG CAP PO SCH ×2 (09:13→20:48)
[2016-06-22] MEDS: ENOXAPARIN 60 MG/0.6 ML SYG SC SCH (09:16)
[2016-06-22] MEDS: NYSTATIN SUSP 5 ML CUP PO SCH ×4 (09:38→20:47)
--- NOTE | 2016-06-22 10:41 | CONS ---
Date/Time of Note Date/Time of Note DATE: 06/22/16 TIME: 10:38 Assessment/Plan Assessment/Plan Additional Assessment/Plan Chest x-ray was reviewed from today which is essentially clear. Assessment and recommendations; 1. Patient admitted with cardiac arrest underwent emergent coronary angiography however patient had to undergo bypass surgery. 2. Mild fluid overload patient has responded well to intravenous Lasix. 3. Possibly some element of aspiration pneumonia. 4. History of basal cell carcinoma involving the back. Status post resection. 5. History of ventral hernia repair more than a year ago. 6. History of hypertension. Discontinue Lasix. Continue current supportive care. Patient can be transferred to the surgical unit. Consultation Date/Type/Reason Admit Date/Time Jun 16, 2016 at 17:32 Initial Consult Date 06/17/16 Type of Consultation: Pulmonary/critical care Referring Provider: BRICE MONTELONGO 24 HR Interval Summary Free Text/Dictation Patient condition is markedly improved. Was successfully extubated yesterday morning. Has remained hemodynamically stable. Patient remains awake and alert. General examination; female, awake and alert currently in no distress. Exam/Review of Systems Vital Signs Vitals Vital Signs Date Time Temp Pulse Resp B/P Pulse Ox O2 Delivery O2 Flow Rate FiO2 06/22/16 08:00 2.0 06/22/16 08:00 81 06/22/16 03:00 22 114/64 98 Nasal Cannula 06/22/16 00:00 98.5 06/21/16 17:17 28 Intake and Output 06/21/16 06/21/16 06/22/16 15:00 23:00 07:00 Intake Total 834.201 ml 1155 ml 785 ml Output Total 1800 ml 3300 ml 125 ml Balance -965.799 ml -2145 ml 660 ml Exam HEENT examination; supple neck, no JVD. No lymphadenopathy. Midline trachea. Fair dentition. Pupils are midsize and reactive to light. Next Chest examination; clear to auscultation bilaterally. S1-S2 audible, no murmurs. Regular rhythm. There is a dressing applied over the sternum. Abdomen examination; soft, nontender. There is a well-healed ventral scar. Bowel sounds audible. Extremity examination; no peripheral edema. Pulses 2+ bilaterally. [employer] examination; no focal deficit. Results Result Diagram: 06/22/16 0550 06/22/16 0550 Results 24 hrs Laboratory Tests Test 06/21/16 11:55 06/21/16 12:45 06/21/16 17:51 06/21/16 20:03 Bedside Glucose 103 83 Arterial Blood HCO3 27.9 H Arterial Blood Base Excess 3.7 H Arterial Blood Oxygen Saturation 96.9 Kyle Test ACCEPTAB Arterial Blood Gas Puncture Site Right Radial Arterial Blood Carboxyhemoglobin 0.3 Arterial Blood Date Drawn 06/21/2016 1:22:18 PM Arterial Blood Methemoglobin 0.3 Arterial Blood pCO2 (Temp correct) 40.5 Arterial Blood pH (Temp corrected) 7.456 H Arterial Blood pO2 (Temp corrected) 92.8 Blood Gas A-a O2 Differential 109.7 H Blood Gas Actual Respiration Rate 21 Blood Gas Low PEEP Setting 5.0 Blood Gas Modality VENT - CPAP Blood Gas Notified Time 06/21/2016 1:37:47 PM Blood Gas Notified Whom DHOLT Blood Gas Pressure Support 10 Blood Gas Specimen Source Blood arterial Blood Gas Temperature 37.0 Blood Gas Tidal Volume 545.0 FiO2 35.0 Oxyhemoglobin Percent 96.3 Total Hemoglobin 11.1 L Potassium Level 3.6 Test 06/21/16 21:00 06/21/16 21:37 06/22/16 01:13 06/22/16 05:43 Vancomycin Level Trough 14.4 Bedside Glucose 99 118 95 Test 06/22/16 05:50 Activated Partial Thromboplast Time 31.1 Albumin 2.7 L Anion Gap 13 Basophils # 0.0 Basophils % 0.4 Blood Urea Nitrogen 11 Calcium Level 8.1 L Carbon Dioxide Level 29 Chloride Level 104 Creatinine 0.85 Eosinophils # 1.1 H Eosinophils % 10.7 H Glucose Level 111 Hematocrit 30.7 L Hemoglobin 10.0 L INR International Normalized Ratio 1.19 Lymphocytes # 1.2 Lymphocytes % 11.6 L Mean Corpuscular Hemoglobin 29.6 Mean Corpuscular Hemoglobin Concent 32.6 Mean Corpuscular Volume 90.8 Mean Platelet Volume 10.7 H Monocytes # 1.0 H Monocytes % 10.1 Neutrophils # 6.8 Neutrophils % 66.4 Nucleated Red Blood Cells # 0.0 Nucleated Red Blood Cells % 0.0 Phosphorus Level 2.8 Platelet Count 285 # Potassium Level 3.7 Prothrombin Time 15.2 H Prothrombin Time Ratio 1.2 Red Blood Count 3.38 L Red Cell Distribution Width 13.7 Sodium Level 142 White Blood Count 10.3 Medications Medications Current Medications Hydromorphone HCl (Dilaudid) 0.2 mg Q15M PRN IV PAIN LEVEL 1-5 Last administered on 06/17/16 14:18; Admin Dose 0.2 MG; Start 06/16/16 at 17:30 Hydromorphone HCl (Dilaudid) 0.4 mg Q15M PRN IV PAIN LEVEL 6-10 Last administered on 06/18/16 04:35; Admin Dose 0.4 MG; Start 06/16/16 at 17:30 Oxycodone/ Acetaminophen (Percocet (5/ 325)) 1 tab Q3H PRN PO PAIN LEVEL 1-5; Start 06/16/16 at 17:30 Oxycodone/ Acetaminophen (Percocet (5/ 325)) 2 tab Q3H PRN PO PAIN LEVEL 6-10; Start 06/16/16 at 17:30 Ondansetron HCl (Zofran Inj) 4 mg Q6H PRN IV NAUSEA AND/OR VOMITING; Start at 17:30 Famotidine (Pepcid Iv) 20 mg BID@08,20 IV Last administered on 06/22/16 07:37 ; Admin Dose 20 MG; Start 06/16/16 at 20:00 Acetaminophen 650 mg 650 mg Q3H PRN PO ELEVATED TEMPERATURE Last administered on 06/18/16 10:40; Admin Dose 650 MG; Start 06/16/16 at 17:30 Magnesium Sulfate/ Dextrose 100 ml @ 100 mls/hr PRN PRN IVPB PENDING LAB VALUE Last administered on 06/17/16 19:38; Admin Dose 100 MLS/HR; Start at 17:30 Propofol (Diprivan) 100 ml @ 3.273 mls/ hr Q12H IV Last administered on 06:25; Admin Dose 7.201 MLS/HR; Start 06/16/16 at 17:30 Docusate Sodium 100 mg 100 mg BID PO Last administered on 06/22/16 09:13; Admin Dose 100 MG; Start 06/16/16 at 21:00 Levetiracetam 500 mg/Sodium Chloride 105 ml @ 420 mls/hr Q12 IVPB Last administered on 06/22/16 07:37; Admin Dose 420 MLS/HR; Start 06/16/16 at 21:00 Norepinephrine/ Dextrose (Levophed/D5W) 500 ml @ 1.87 mls/hr TITRATE IV Last administered on 06/18/16 01:59; Admin Dose 15 MLS/HR; Start 06/17/16 at 04:00 Acetaminophen (Tylenol Supp) 650 mg Q6H PRN [place] FEVER Last administered on 19:49; Admin Dose 650 MG; Start 06/16/16 at 22:00 Atorvastatin Calcium (Lipitor) 80 mg HS NGT Last administered on 06/21/16 20: 05; Admin Dose 80 MG; Start 06/17/16 at 21:00 Aspirin (Aspirin) 81 mg DAILY NGT Last administered on 06/22/16 09:06; Admin Dose 81 MG; Start 06/17/16 at 09:00 Clopidogrel Bisulfate (plaVIX) 75 mg DAILY NGT Last administered on 06/22/16 09:06; Admin Dose 75 MG; Start 06/17/16 at 09:00 Metoprolol Tartrate 25 mg 25 mg BID NGT Last administered on 06/22/16 09:06; Admin Dose 25 MG; Start 06/17/16 at 09:00 Midazolam HCl (Versed) 50 ml @ 1 mls/hr TITRATE IV Last administered on 18:15; Admin Dose 2 MLS/HR; Start 06/17/16 at 10:30 Amiodarone HCl (Cordarone) 400 mg BID NGT Last administered on 06/18/16 02:17 ; Admin Dose 400 MG; Start 06/18/16 at 02:00; Status Future Hold Mupirocin 1 applic 1 applic BID TOP Last administered on 06/22/16 09:13; Admin Dose 1 APPLIC; Start 06/18/16 at 12:00 Piperacillin Sod/ Tazobactam Sod 100 ml @ 200 mls/hr Q8 IVPB Last administered on 06/22/16 06:11; Admin Dose 200 MLS/HR; Start 06/18/16 at 20:00 Dextrose/Sodium Chloride (D5-NS) 1,000 ml @ 80 mls/hr [id number] IV Last administered on 06/22/16 05:39; Admin Dose 80 MLS/HR; Start 06/19/16 at 02:00 Miscellaneous Information 1 ea NOTE XX ; Start 06/19/16 at 13:00 Glucose (Glutose) 15 gm Q15M PRN PO DECREASED GLUCOSE; Start 06/19/16 at 13:00 Glucose (Glutose) 22.5 gm Q15M PRN PO DECREASED GLUCOSE; Start 06/19/16 at 13: 00 Dextrose (D50w Syringe) 25 ml Q15M PRN IV DECREASED GLUCOSE; Start 06/19/16 at 13:00 Dextrose (D50w Syringe) 50 ml Q15M PRN IV DECREASED GLUCOSE; Start 06/19/16 at 13:00 Glucagon (Glucagen) 1 mg Q15M PRN IM DECREASED GLUCOSE; Start 06/19/16 at 13:00 Glucose (Glutose) 15 gm Q15M PRN BUCCAL DECREASED GLUCOSE; Start 06/19/16 at 13 :00 Enoxaparin Sodium (Lovenox) 60 mg AM SC Last administered on 06/22/16 09:16; Admin Dose 60 MG; Start 06/20/16 at 09:00 Lisinopril (Zestril) 5 mg DAILY NGT Last administered on 06/22/16 09:06; Admin Dose 5 MG; Start 06/21/16 at 09:00 Insulin Aspart (Novolog Insulin Pen) NOVOLOG *MILD* ALGORI... Q6 SC ; Start at 12:00 Nystatin (Nystatin Susp) 5 ml QID PO ; Start 06/22/16 at 09:38; Stop 06/29/16 at 09:37 RICKY MAS Jun 22, 2016 10:41
--- NOTE | 2016-06-22 12:55 | PN ---
Date/Time of Note Date/Time of Note DATE: 06/22/16 TIME: 12:51 Assessment/Plan VTE Prophylaxis VTE Prophylaxis Intervention: ambulation Lines/Catheters IV [facility]from [facility] Saline Lock Urinary Cath still in place: Yes Reason Cath still needed: other (indicate) (I have ordered for it to be dc'ed) Assessment/Plan Chief Complaint/Hosp Course Patient presents two days after discharge for SBO with a STEMI and VF arrest, has 3 vessel coronary disease and known cardiomyopathy, underwent emergent CABG. Problems: Assessment/Plan STEMI, s/p CABG postop day #6 Post op afib and aflutter, currently in NSR ischemic cardiomyopathy acute respiratory failure, recently extubated Recc: Continue asa, clopidogrel, statin, metoprolol, lisinopril Increasing lisinopril Solis can be dc'ed Transfer to telemetry Briefly discussed better food choices and regular exercise as a part of a heart healthy lifestyle Subjective 24 Hr Interval Summary Free Text/Dictation He was extubated yesterday. He recognizes me, is able to recall most of the events leading up to his cardiac catheterization and surgery. He has been able to ambulate. Constitutional: improved, no complaints Respiratory: no complaints, No shortness of breath Cardiovascular: no complaints, No chest pain Exam/Review of Systems Vital Signs Vitals Vital Signs Date Time Temp Pulse Resp B/P Pulse Ox O2 Delivery O2 Flow Rate FiO2 06/22/16 12:00 85 06/22/16 12:00 98.2 20 100/67 98 Nasal Cannula 06/22/16 08:00 2.0 06/21/16 17:17 28 Intake and Output 06/21/16 06/21/16 06/22/16 15:00 23:00 07:00 Intake Total 834.201 ml 1155 ml 785 ml Output Total 1800 ml 3300 ml 125 ml Balance -965.799 ml -2145 ml 660 ml Exam Constitutional: alert, oriented, well developed Psych: nl mood/affect Head: atraumatic, normocephalic Eyes: EOMI, nl conjunctiva, nl lids, nl sclera ENMT: nl external ears & nose, nl lips & teeth, nl nasal mucosa & septum Neck: supple, No bruits, No jvd Respiratory: clear to auscultation, normal air movement Cardiovascular: regular rate and rhythm, No bruits, No murmurs/extra sounds Gastrointestinal: non-tender, soft Musculoskeletal: nl extremities to inspection, nl gait and stance Extremities: edema (mild edema, venous stasis discoloration) Neurological: nl mental status, nl speech Skin: nl turgor, No rash or lesions Results Result Diagram: 06/22/16 0550 06/22/16 0550 Results 24 hrs Laboratory Tests Test 06/21/16 17:51 06/21/16 20:03 06/21/16 21:00 06/21/16 21:37 Bedside Glucose 83 99 Potassium Level 3.6 Vancomycin Level Trough 14.4 Test 06/22/16 01:13 06/22/16 05:43 06/22/16 05:50 Bedside Glucose 118 95 Activated Partial Thromboplast Time 31.1 Albumin 2.7 L Anion Gap 13 Basophils # 0.0 Basophils % 0.4 Blood Urea Nitrogen 11 Calcium Level 8.1 L Carbon Dioxide Level 29 Chloride Level 104 Creatinine 0.85 Eosinophils # 1.1 H Eosinophils % 10.7 H Glucose Level 111 Hematocrit 30.7 L Hemoglobin 10.0 L INR International Normalized Ratio 1.19 Lymphocytes # 1.2 Lymphocytes % 11.6 L Mean Corpuscular Hemoglobin 29.6 Mean Corpuscular Hemoglobin Concent 32.6 Mean Corpuscular Volume 90.8 Mean Platelet Volume 10.7 H Monocytes # 1.0 H Monocytes % 10.1 Neutrophils # 6.8 Neutrophils % 66.4 Nucleated Red Blood Cells # 0.0 Nucleated Red Blood Cells % 0.0 Phosphorus Level 2.8 Platelet Count 285 # Potassium Level 3.7 Prothrombin Time 15.2 H Prothrombin Time Ratio 1.2 Red Blood Count 3.38 L Red Cell Distribution Width 13.7 Sodium Level 142 White Blood Count 10.3 Medications Medications Current Medications Propofol (Diprivan) 100 ml @ 3.273 mls/ hr Q12H IV Last administered on 06:25; Admin Dose 7.201 MLS/HR; Start 06/16/16 at 17:30 Docusate Sodium 100 mg 100 mg BID PO Last administered on 06/22/16 09:13; Admin Dose 100 MG; Start 06/16/16 at 21:00 Levetiracetam/ Sodium Chloride (Keppra Iv/NS) 105 ml @ 420 mls/hr Q12 IVPB Last administered on 06/22/16 07:37; Admin Dose 420 MLS/HR; Start 06/16/16 at 21:00 Acetaminophen (Tylenol Supp) 650 mg Q6H PRN [place] FEVER Last administered on 19:49; Admin Dose 650 MG; Start 06/16/16 at 22:00 Atorvastatin Calcium (Lipitor) 80 mg HS NGT Last administered on 06/21/16 20: 05; Admin Dose 80 MG; Start 06/17/16 at 21:00 Aspirin (Aspirin) 81 mg DAILY NGT Last administered on 06/22/16 09:06; Admin Dose 81 MG; Start 06/17/16 at 09:00 Clopidogrel Bisulfate (plaVIX) 75 mg DAILY NGT Last administered on 06/22/16 09:06; Admin Dose 75 MG; Start 06/17/16 at 09:00 Metoprolol Tartrate (Lopressor) 25 mg BID NGT Last administered on 06/22/16 09 :06; Admin Dose 25 MG; Start 06/17/16 at 09:00 Amiodarone HCl (Cordarone) 400 mg BID NGT Last administered on 06/18/16 02:17 ; Admin Dose 400 MG; Start 06/18/16 at 02:00; Status Future Hold Mupirocin 1 applic 1 applic BID TOP Last administered on 06/22/16 09:13; Admin Dose 1 APPLIC; Start 06/18/16 at 12:00 Piperacillin Sod/ Tazobactam Sod (Zosyn 3.375gm/ 100 ml (Pmx)) 100 ml @ 200 mls /hr Q8 IVPB Last administered on 06/22/16 06:11; Admin Dose 200 MLS/HR; Start 06/18/16 at 20:00 Miscellaneous Information 1 ea NOTE XX ; Start 06/19/16 at 13:00 Glucose (Glutose) 15 gm Q15M PRN PO DECREASED GLUCOSE; Start 06/19/16 at 13:00 Glucose (Glutose) 22.5 gm Q15M PRN PO DECREASED GLUCOSE; Start 06/19/16 at 13: 00 Dextrose (D50w Syringe) 25 ml Q15M PRN IV DECREASED GLUCOSE; Start 06/19/16 at 13:00 Dextrose (D50w Syringe) 50 ml Q15M PRN IV DECREASED GLUCOSE; Start 06/19/16 at 13:00 Glucagon (Glucagen) 1 mg Q15M PRN IM DECREASED GLUCOSE; Start 06/19/16 at 13:00 Glucose (Glutose) 15 gm Q15M PRN BUCCAL DECREASED GLUCOSE; Start 06/19/16 at 13 :00 Enoxaparin Sodium (Lovenox) 60 mg AM SC Last administered on 06/22/16t 09:16; Admin Dose 60 MG; Start 06/20/16 at 09:00 Insulin Aspart (Novolog Insulin Pen) NOVOLOG *MILD* ALGORI... Q6 SC ; Start at 12:00 Nystatin (Nystatin Susp) 5 ml QID PO ; Start 06/22/16 at 09:38; Stop 06/29/16 at 09:37 Lisinopril (Zestril) 10 mg DAILY PO ; Start 06/22/16 at 13:00 BAM BERTRAND Jun 22, 2016 12:55
[2016-06-22] MEDS: LISINOPRIL 10 MG TAB PO SCH (14:00)
--- NOTE | 2016-06-22 15:07 | PN ---
Date/Time of Note Date/Time of Note DATE: 06/22/16 TIME: 14:56 Assessment/Plan VTE Prophylaxis VTE Prophylaxis Intervention: LMWH Lines/Catheters IV [facility] Type (from [facility]): Saline Lock Urinary Cath still in place: Yes Reason Cath still needed: urinary retention Assessment/Plan Chief Complaint/Hosp Course Assessment/Plan: A 61-year-old male managed as follows: 1. Severe Coronary artery disease, status post inferior wall ST elevation myocardial infarction that was not amenable to angiographic repair, status post emergent coronary artery bypass surgery, 4-vessel repair 06/16/16 POD # 6. - Continue to follow cardiology and Cardiothoracic surgical recs regarding meds and postop care / Appreciate aggressive and prompt mgt - GREG -, bblocker, ASA, Plavix, lipitor 2. Acute respiratory failure, ventilator dependent - extubated yesterday. 3. Status post Vfib arrest x2 with return of spontaneous circulation both times. 4. 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 5. Post op Afib / Aflutter now in NSR - continue cardiac meds, monitor 6. Methamphetamine user - cessation needed 7. Developing LLL aspiration pneumonia - /Continue empiric broad spectrum abx + Bactroban / appreciate ID consult 8. Shock likely Cardiogenic: improved - Closely monitor electrolytes as well as renal and hepatic function 9. Severe Rhabdomyolysis: improving - monitor 10. MRSA nares - bactroban 11. Dyslipidemia - lipitor 12. Anemia likely dilutional + blood loss - H/H stable. - Closely monitor hgb levels and transfuse PRN PROPHYLAXIS: Lovenox / IV PPI Prognosis : improved CRITICAL CARE TIME: 45 mins Problems: Subjective 24 Hr Interval Summary Free Text/Dictation Pt extubated yesterday. Seen by CV team today. Exam/Review of Systems Vital Signs Vitals Vital Signs Date Time Temp Pulse Resp B/P Pulse Ox O2 Delivery O2 Flow Rate FiO2 06/22/16 12:00 85 06/22/16 12:00 98.2 20 100/67 98 Nasal Cannula 06/22/16 08:00 2.0 06/21/16 17:17 28 Intake and Output 06/21/16 06/21/16 06/22/16 15:00 23:00 07:00 Intake Total 834.201 ml 1155 ml 785 ml Output Total 1800 ml 3300 ml 125 ml Balance -965.799 ml -2145 ml 660 ml Exam Constitutional: No alert Head: normocephalic Eyes: PERRL ENMT: intubated, possible extubation today Respiratory: crackles/rales, diminished breath sounds (L>>R), No wheezing Cardiovascular: irregular rhythm, No murmurs/extra sounds Gastrointestinal: bowel sounds (hypoactive), distended, soft Extremities: edema (diffuse) Neurological: focal weakness (movement noted on the R sided only), No nl mental status, No nl speech, No nl strength Skin: other (blister noted posterolateral R knee) Results Result Diagram: 06/22/16 0550 06/22/16 0550 Results 24 hrs Laboratory Tests Test 06/21/16 17:51 06/21/16 20:03 06/21/16 21:00 06/21/16 21:37 Bedside Glucose 83 99 Potassium Level 3.6 Vancomycin Level Trough 14.4 Test 06/22/16 01:13 06/22/16 05:43 06/22/16 05:50 Bedside Glucose 118 95 Activated Partial Thromboplast Time 31.1 Albumin 2.7 L Anion Gap 13 Basophils # 0.0 Basophils % 0.4 Blood Urea Nitrogen 11 Calcium Level 8.1 L Carbon Dioxide Level 29 Chloride Level 104 Creatinine 0.85 Eosinophils # 1.1 H Eosinophils % 10.7 H Glucose Level 111 Hematocrit 30.7 L Hemoglobin 10.0 L INR International Normalized Ratio 1.19 Lymphocytes # 1.2 Lymphocytes % 11.6 L Mean Corpuscular Hemoglobin 29.6 Mean Corpuscular Hemoglobin Concent 32.6 Mean Corpuscular Volume 90.8 Mean Platelet Volume 10.7 H Monocytes # 1.0 H Monocytes % 10.1 Neutrophils # 6.8 Neutrophils % 66.4 Nucleated Red Blood Cells # 0.0 Nucleated Red Blood Cells % 0.0 Phosphorus Level 2.8 Platelet Count 285 # Potassium Level 3.7 Prothrombin Time 15.2 H Prothrombin Time Ratio 1.2 Red Blood Count 3.38 L Red Cell Distribution Width 13.7 Sodium Level 142 White Blood Count 10.3 Medications Medications Current Medications Docusate Sodium (Colace) 100 mg BID PO Last administered on 06/22/16 09:13; Admin Dose 100 MG; Start 06/16/16 at 21:00 Acetaminophen (Tylenol Supp) 650 mg Q6H PRN [place] FEVER Last administered on 19:49; Admin Dose 650 MG; Start 06/16/16 at 22:00 Atorvastatin Calcium (Lipitor) 80 mg HS NGT Last administered on 06/21/16 20: 05; Admin Dose 80 MG; Start 06/17/16 at 21:00 Aspirin (Aspirin) 81 mg DAILY NGT Last administered on 06/22/16 09:06; Admin Dose 81 MG; Start 06/17/16 at 09:00 Clopidogrel Bisulfate (plaVIX) 75 mg DAILY NGT Last administered on 06/22/16 09:06; Admin Dose 75 MG; Start 06/17/16 at 09:00 Metoprolol Tartrate (Lopressor) 25 mg BID NGT Last administered on 06/22/16 09 :06; Admin Dose 25 MG; Start 06/17/16 at 09:00 Amiodarone HCl (Cordarone) 400 mg BID NGT Last administered on 06/18/16 02:17 ; Admin Dose 400 MG; Start 06/18/16 at 02:00; Status Future Hold Mupirocin 1 applic 1 applic BID TOP Last administered on 06/22/16 09:13; Admin Dose 1 APPLIC; Start 06/18/16 at 12:00 Piperacillin Sod/ Tazobactam Sod (Zosyn 3.375gm/ 100 ml (Pmx)) 100 ml @ 200 mls /hr Q8 IVPB Last administered on 06/22/16 14:11; Admin Dose 200 MLS/HR; Start 06/18/16 at 20:00 Miscellaneous Information 1 ea NOTE XX ; Start 06/19/16 at 13:00 Glucose (Glutose) 15 gm Q15M PRN PO DECREASED GLUCOSE; Start 06/19/16 at 13:00 Glucose (Glutose) 22.5 gm Q15M PRN PO DECREASED GLUCOSE; Start 06/19/16 at 13: 00 Dextrose (D50w Syringe) 25 ml Q15M PRN IV DECREASED GLUCOSE; Start 06/19/16 at 13:00 Dextrose (D50w Syringe) 50 ml Q15M PRN IV DECREASED GLUCOSE; Start 06/19/16 at 13:00 Glucagon (Glucagen) 1 mg Q15M PRN IM DECREASED GLUCOSE; Start 06/19/16 at 13:00 Glucose (Glutose) 15 gm Q15M PRN BUCCAL DECREASED GLUCOSE; Start 06/19/16 at 13 :00 Enoxaparin Sodium (Lovenox) 60 mg AM SC Last administered on 06/22/16 09:16; Admin Dose 60 MG; Start 06/20/16 at 09:00 Insulin Aspart (Novolog Insulin Pen) NOVOLOG *MILD* ALGORI... Q6 SC ; Start at 12:00 Nystatin (Nystatin Susp) 5 ml QID PO Last administered on 06/22/16 14:00; Admin Dose 5 ML; Start 06/22/16 at 09:38; Stop 06/29/16 at 09:37 Lisinopril (Zestril) 10 mg DAILY PO Last administered on 06/22/16 14:00; Admin Dose 10 MG; Start 06/22/16 at 13:00 MAREK BECERRA Jun 22, 2016 15:07
--- NOTE | 2016-06-22 15:47 | PN ---
Date/Time of Note Date/Time of Note DATE: 06/22/16 TIME: 15:46 Assessment/Plan VTE Prophylaxis VTE Prophylaxis Intervention: ambulation, LMWH Lines/Catheters IV [facility] Type (from [facility] Saline Lock Urinary Cath still in place: No Assessment/Plan Assessment/Plan Feels well. Ambulating. ON RA. Cr. OK. K 3.7 replace. DC [facility] and central line today. Transfer to tele. Home soon Exam/Review of Systems Vital Signs Vitals Vital Signs Date Time Temp Pulse Resp B/P Pulse Ox O2 Delivery O2 Flow Rate FiO2 06/22/16 12:00 85 06/22/16 12:00 98.2 20 100/67 98 Nasal Cannula 06/22/16 08:00 2.0 06/21/16 17:17 28 Intake and Output 06/21/16 06/21/16 06/22/16 15:00 23:00 07:00 Intake Total 834.201 ml 1155 ml 785 ml Output Total 1800 ml 3300 ml 125 ml Balance -965.799 ml -2145 ml 660 ml Results Result Diagram: 06/22/16 0550 06/22/16 0550 Results 24 hrs Laboratory Tests Test 06/21/16 17:51 06/21/16 20:03 06/21/16 21:00 06/21/16 21:37 Bedside Glucose 83 99 Potassium Level 3.6 Vancomycin Level Trough 14.4 Test 06/22/16 01:13 06/22/16 05:43 06/22/16 05:50 Bedside Glucose 118 95 Activated Partial Thromboplast Time 31.1 Albumin 2.7 L Anion Gap 13 Basophils # 0.0 Basophils % 0.4 Blood Urea Nitrogen 11 Calcium Level 8.1 L Carbon Dioxide Level 29 Chloride Level 104 Creatinine 0.85 Eosinophils # 1.1 H Eosinophils % 10.7 H Glucose Level 111 Hematocrit 30.7 L Hemoglobin 10.0 L INR International Normalized Ratio 1.19 Lymphocytes # 1.2 Lymphocytes % 11.6 L Mean Corpuscular Hemoglobin 29.6 Mean Corpuscular Hemoglobin Concent 32.6 Mean Corpuscular Volume 90.8 Mean Platelet Volume 10.7 H Monocytes # 1.0 H Monocytes % 10.1 Neutrophils # 6.8 Neutrophils % 66.4 Nucleated Red Blood Cells # 0.0 Nucleated Red Blood Cells % 0.0 Phosphorus Level 2.8 Platelet Count 285 # Potassium Level 3.7 Prothrombin Time 15.2 H Prothrombin Time Ratio 1.2 Red Blood Count 3.38 L Red Cell Distribution Width 13.7 Sodium Level 142 White Blood Count 10.3 Medications Medications Current Medications Docusate Sodium (Colace) 100 mg BID PO Last administered on 06/22/16 09:13; Admin Dose 100 MG; Start 06/16/16 at 21:00 Acetaminophen (Tylenol Supp) 650 mg Q6H PRN [place] FEVER Last administered on 19:49; Admin Dose 650 MG; Start 06/16/16 at 22:00 Atorvastatin Calcium (Lipitor) 80 mg HS NGT Last administered on 06/21/16 20: 05; Admin Dose 80 MG; Start 06/17/16 at 21:00 Aspirin (Aspirin) 81 mg DAILY NGT Last administered on 06/22/16 09:06; Admin Dose 81 MG; Start 06/17/16 at 09:00 Clopidogrel Bisulfate (plaVIX) 75 mg DAILY NGT Last administered on 06/22/16 09:06; Admin Dose 75 MG; Start 06/17/16 at 09:00 Metoprolol Tartrate (Lopressor) 25 mg BID NGT Last administered on 06/22/16 09 :06; Admin Dose 25 MG; Start 06/17/16 at 09:00 Amiodarone HCl (Cordarone) 400 mg BID NGT Last administered on 06/18/16 02:17 ; Admin Dose 400 MG; Start 06/18/16 at 02:00; Status Future Hold Mupirocin 1 applic 1 applic BID TOP Last administered on 06/22/16 09:13; Admin Dose 1 APPLIC; Start 06/18/16 at 12:00 Piperacillin Sod/ Tazobactam Sod (Zosyn 3.375gm/ 100 ml (Pmx)) 100 ml @ 200 mls /hr Q8 IVPB Last administered on 06/22/16 14:11; Admin Dose 200 MLS/HR; Start 06/18/16 at 20:00 Miscellaneous Information 1 ea NOTE XX ; Start 06/19/16 at 13:00 Glucose (Glutose) 15 gm Q15M PRN PO DECREASED GLUCOSE; Start 06/19/16 at 13:00 Glucose (Glutose) 22.5 gm Q15M PRN PO DECREASED GLUCOSE; Start 06/19/16 at 13: 00 Dextrose (D50w Syringe) 25 ml Q15M PRN IV DECREASED GLUCOSE; Start 06/19/16 at 13:00 Dextrose (D50w Syringe) 50 ml Q15M PRN IV DECREASED GLUCOSE; Start 06/19/16 at 13:00 Glucagon (Glucagen) 1 mg Q15M PRN IM DECREASED GLUCOSE; Start 06/19/16 at 13:00 Glucose (Glutose) 15 gm Q15M PRN BUCCAL DECREASED GLUCOSE; Start 06/19/16 at 13 :00 Enoxaparin Sodium (Lovenox) 60 mg AM SC Last administered on 06/22/16 09:16; Admin Dose 60 MG; Start 06/20/16 at 09:00 Insulin Aspart (Novolog Insulin Pen) NOVOLOG *MILD* ALGORI... Q6 SC ; Start at 12:00 Nystatin (Nystatin Susp) 5 ml QID PO Last administered on 06/22/16 14:00; Admin Dose 5 ML; Start 06/22/16 at 09:38; Stop 06/29/16 at 09:37 Lisinopril (Zestril) 10 mg DAILY PO Last administered on 06/22/16 14:00; Admin Dose 10 MG; Start 06/22/16 at 13:00 GOLDIE GUZMAN MD Jun 22, 2016 15:47
[2016-06-22] MEDS: ATORVASTATIN 80 MG TAB NGT SCH (20:48)
[2016-06-23] VITALS (11 sets, daily range): BP systolic 106–138; BP diastolic 55–73; PULSE 66–89; RESP 20–21
[2016-06-23] MEDS: PIPER-TAZO 3.375 GM IV (PMX) 100 ML IVPB SCH (05:16)
[2016-06-23 07:15] LABS: ADD SCAN DIFF NO
--- NOTE | 2016-06-23 07:16 | PN ---
Date/Time of Note Date/Time of Note DATE: 06/23/16 TIME: 07:15 Assessment/Plan Lines/Catheters IV C[facility] Type (from [facility]): Saline Lock [facility] in Place (from Nrs): No Assessment/Plan Assessment/Plan good progress NSR pressure ulcer mid back increase activity home per hospitalist and cardiology Exam/Review of Systems Vital Signs Vitals Vital Signs Date Time Temp Pulse Resp B/P Pulse Ox O2 Delivery O2 Flow Rate FiO2 06/23/16 04:25 98.4 79 21 135/63 94 06/22/16 20:00 Nasal Cannula 2.0 06/21/16 17:17 28 Intake and Output 06/22/16 06/22/16 06/23/16 15:00 23:00 07:00 Intake Total 100 ml 500 ml Output Total 1975 ml 630 ml 550 ml Balance -1975 ml -530 ml -50 ml Results Result Diagram: 06/22/16 0550 06/22/16 0550 TITA CIFUENTES MD Jun 23, 2016 07:16
[2016-06-23 07:19] LABS: BASOPHIL # 0.1 10^3/ul (0.0-0.1); BASOPHILS % 0.5 % (0.0-2.0); EOSINOPHILS % 9.6 % (0.0-7.0); LYMPHOCYTES % 19.1 % (15.0-51.0); MEAN CORPUSCULAR HEMOGLOBIN 29.3 pg (29.0-33.0); MEAN CORPUSCULAR HGB CONC 32.4 g/dl (32.0-37.0); MEAN CORPUSCULAR VOLUME 90.7 fl (82.0-101.0); MEAN PLATELET VOLUME 10.3 fl (7.4-10.4); MONOCYTES % 9.3 % (0.0-11.0); NEUTROPHIL # 6.2 10^3/ul (1.6-7.5); NEUTROPHILS % 60.7 % (39.0-77.0); PLATELET COUNT 354 10^3/UL (140-415); RED BLOOD COUNT 3.75 10^6/ul (4.70-6.10); RED CELL DISTRIBUTION WIDTH 13.8 % (11.5-14.5); WHITE BLOOD COUNT 10.3 10^3/ul (4.8-10.8)
[2016-06-23 08:08] LABS: ALBUMIN 2.7 g/dl (3.3-4.9); POTASSIUM 3.9 mmol/L (3.5-5.1)
[2016-06-23 08:11] LABS: CREATININE 0.92 mg/dl (0.61-1.24)
[2016-06-23 08:12] LABS: CALCIUM 8.5 mg/dl (8.4-10.2); PHOSPHORUS 3.9 mg/dl (2.5-4.9)
[2016-06-23] MEDS: MUPIROCIN 2% 22 GM OINT TOP SCH ×2 (08:29→21:11)
[2016-06-23] MEDS: DOCUSATE SODIUM 100 MG CAP PO SCH ×2 (08:29→21:11)
[2016-06-23] MEDS: CLOPIDOGREL 75 MG TAB NGT SCH (08:29)
[2016-06-23] MEDS: ASPIRIN 81 MG TAB NGT SCH (08:29)
[2016-06-23] MEDS: LISINOPRIL 10 MG TAB PO SCH (08:30)
[2016-06-23] MEDS: NYSTATIN SUSP 5 ML CUP PO SCH ×4 (08:30→21:11)
[2016-06-23] MEDS: METOPROLOL 25 MG TAB NGT SCH ×2 (08:30→21:11)
[2016-06-23] MEDS: ENOXAPARIN 60 MG/0.6 ML SYG SC SCH (08:44)
[2016-06-23] MEDS ORDERED: LISINOPRIL 5 MG TAB PO SCH (09:00)
--- NOTE | 2016-06-23 10:20 | CONS ---
Date/Time of Note Date/Time of Note DATE: 06/23/16 TIME: 10:16 Assessment/Plan Assessment/Plan Chief Complaint/Hosp Course - h/o severe sepsis vs SIRS - h/o postop fever, improved - CAD h/o STEMI s/p emergent CABG 06/16/16 - h/o cardiogenic shock; s/p IABP and pressors, Vfib arrest x2 on 06/16/16 - ischemic CM (EF 45% per TTE 06/10/16), likely drug induced - Methamphetamine user per + urine tox screen - h/o post op respiratory failure, extubated - MRSA nasal colonization - thrush - h/o PE in 2009 - Hx recent SBO 06/10/16 - treated medically - Hx Large basal cell carcinoma of the upper mid back s/p excision 08/17/14 - Hx back wound infection with MSSA, Enterobacter Cloacae, Klebsiella Oxytoca, Corynebacter Jeikeium Grp JK 09/16/14 - Hx repair of a large ventral incisional hernia in [facility] in 2009. recommendations: - d/c empiric pip/tazo (06/18/16) - nystatin for thrush (06/22/2016-) until it resolves - Continue bactroban; contact isolation for MRSA management d/w Pt and his Problems: Consultation Date/Type/Reason Admit Date/Time Jun 16, 2016 at 17:32 Initial Consult Date 06/18/16 Type of Consultation: ID Referring Provider: BRICE MONTELONGO 24 HR Interval Summary Free Text/Dictation out of ICU Constitutional: other (doing PT) Detailed Summary Eyes: no complaints ENT: no complaints Respiratory: cough (less than before), sputum (less than before), No shortness of breath Cardiovascular: no complaints Gastrointestinal: no complaints Genitourinary: no complaints Musculoskeletal: no complaints Skin: no complaints Neurologic: no complaints Exam/Review of Systems Vital Signs Vitals Vital Signs Date Time Temp Pulse Resp B/P Pulse Ox O2 Delivery O2 Flow Rate FiO2 06/23/16 08:41 66 06/23/16 07:28 98.1 20 125/66 97 06/22/16 20:00 Nasal Cannula 2.0 06/21/16 17:17 28 Intake and Output 06/22/16 06/22/16 06/23/16 15:00 23:00 07:00 Intake Total 100 ml 500 ml Output Total 1975 ml 630 ml 550 ml Balance -1975 ml -530 ml -50 ml Exam Constitutional: alert, oriented, well developed Psych: no complaints Head: atraumatic, normocephalic Eyes: nl conjunctiva, nl lids ENMT: nl external ears & nose, nl nasal mucosa & septum Neck: supple Respiratory: clear to auscultation, normal air movement Cardiovascular: nl pulses, other (well healed scar in the middle), regular rate and rhythm Musculoskeletal: nl extremities to inspection Results Result Diagram: 06/23/16 0708 06/23/16 0708 Results 24 hrs Laboratory Tests Test 06/23/16 07:08 06/23/16 07:46 Albumin 2.7 L Anion Gap 14 Basophils # 0.1 Basophils % 0.5 Blood Urea Nitrogen 17 Calcium Level 8.5 Carbon Dioxide Level 26 Chloride Level 106 Creatinine 0.92 Eosinophils # 1.0 H Eosinophils % 9.6 H Glucose Level 110 Hematocrit 34.0 L Hemoglobin 11.0 L Lymphocytes # 2.0 Lymphocytes % 19.1 Mean Corpuscular Hemoglobin 29.3 Mean Corpuscular Hemoglobin Concent 32.4 Mean Corpuscular Volume 90.7 Mean Platelet Volume 10.3 Monocytes # 1.0 H Monocytes % 9.3 Neutrophils # 6.2 Neutrophils % 60.7 Nucleated Red Blood Cells # 0.0 Nucleated Red Blood Cells % 0.0 Phosphorus Level 3.9 Platelet Count 354 # Potassium Level 3.9 Red Blood Count 3.75 L Red Cell Distribution Width 13.8 Sodium Level 142 White Blood Count 10.3 Lab Scanned Report REFERENCE LAB Medications Medications Current Medications Docusate Sodium (Colace) 100 mg BID PO Last administered on 06/23/16 08:29; Admin Dose 100 MG; Start 06/16/16 at 21:00 Acetaminophen (Tylenol Supp) 650 mg Q6H PRN [place] FEVER Last administered on 19:49; Admin Dose 650 MG; Start 06/16/16 at 22:00 Atorvastatin Calcium (Lipitor) 80 mg HS NGT Last administered on 06/22/16 20: 48; Admin Dose 80 MG; Start 06/17/16 at 21:00 Aspirin (Aspirin) 81 mg DAILY NGT Last administered on 06/23/16 08:29; Admin Dose 81 MG; Start 06/17/16 at 09:00 Clopidogrel Bisulfate (plaVIX) 75 mg DAILY NGT Last administered on 06/23/16 08:29; Admin Dose 75 MG; Start 06/17/16 at 09:00 Metoprolol Tartrate (Lopressor) 25 mg BID NGT Last administered on 06/23/16 08 :30; Admin Dose 25 MG; Start 06/17/16 at 09:00 Amiodarone HCl (Cordarone) 400 mg BID NGT Last administered on 06/18/16 02:17 ; Admin Dose 400 MG; Start 06/18/16 at 02:00; Status Future Hold Mupirocin 1 applic 1 applic BID TOP Last administered on 06/23/16 08:29; Admin Dose 1 APPLIC; Start 06/18/16 at 12:00 Piperacillin Sod/ Tazobactam Sod (Zosyn 3.375gm/ 100 ml (Pmx)) 100 ml @ 200 mls /hr Q8 IVPB Last administered on 06/23/16 05:16; Admin Dose 200 MLS/HR; Start 06/18/16 at 20:00 Miscellaneous Information 1 ea NOTE XX ; Start 06/19/16 at 13:00 Glucose (Glutose) 15 gm Q15M PRN PO DECREASED GLUCOSE; Start 06/19/16 at 13:00 Glucose (Glutose) 22.5 gm Q15M PRN PO DECREASED GLUCOSE; Start 06/19/16 at 13: 00 Dextrose (D50w Syringe) 25 ml Q15M PRN IV DECREASED GLUCOSE; Start 06/19/16 at 13:00 Dextrose (D50w Syringe) 50 ml Q15M PRN IV DECREASED GLUCOSE; Start 06/19/16 at 13:00 Glucagon (Glucagen) 1 mg Q15M PRN IM DECREASED GLUCOSE; Start 06/19/16 at 13:00 Glucose (Glutose) 15 gm Q15M PRN BUCCAL DECREASED GLUCOSE; Start 06/19/16 at 13 :00 Enoxaparin Sodium (Lovenox) 60 mg AM SC Last administered on 06/23/16 08:44; Admin Dose 60 MG; Start 06/20/16 at 09:00 Insulin Aspart (Novolog Insulin Pen) NOVOLOG *MILD* ALGORI... Q6 SC ; Start at 12:00 Nystatin (Nystatin Susp) 5 ml QID PO Last administered on 06/23/16 08:30; Admin Dose 5 ML; Start 06/22/16 at 09:38; Stop 06/29/16 at 09:37 Lisinopril (Zestril) 10 mg DAILY PO Last administered on 06/23/16 08:30; Admin Dose 10 MG; Start 06/22/16 at 13:00 NTAASHA LUIS M.D. Jun 23, 2016 10:20
--- NOTE | 2016-06-23 11:17 | PN ---
Date/Time of Note Date/Time of Note DATE: 06/23/16 TIME: 11:15 Assessment/Plan VTE Prophylaxis VTE Prophylaxis Intervention: LMWH Lines/Catheters IV Catheter Type (from [facility]): Saline Lock Urinary Cath still in place: No Assessment/Plan Chief Complaint/Hosp Course Assessment/Plan: A 61-year-old male managed as follows: 1. Severe Coronary artery disease, status post inferior wall ST elevation myocardial infarction that was not amenable to angiographic repair, status post emergent coronary artery bypass surgery, 4-vessel repair 06/16/16 POD # 7. - Continue to follow cardiology and Cardiothoracic surgical recs regarding meds and postop care / Appreciate aggressive and prompt mgt - GREG -, bblocker, ASA, Plavix, lipitor 2. Acute respiratory failure, ventilator dependent - extubated yesterday. 3. Status post Vfib arrest x2 with return of spontaneous circulation both times. 4. 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 5. Post op Afib / Aflutter now in NSR - continue cardiac meds, monitor 6. Methamphetamine user - cessation needed 7. Developing LLL aspiration pneumonia - /Continue empiric broad spectrum abx + Bactroban / appreciate ID consult 8. Shock likely Cardiogenic: improved - Closely monitor electrolytes as well as renal and hepatic function 9. Severe Rhabdomyolysis: improving - monitor 10. MRSA nares - bactroban 11. Dyslipidemia - lipitor 12. Anemia likely dilutional + blood loss - H/H stable. - Closely monitor hgb levels and transfuse PRN Dispo: home when cleared by CV team PROPHYLAXIS: Lovenox / IV PPI Problems: Subjective 24 Hr Interval Summary Free Text/Dictation Pt had some slight afib/flutter last night. Some dizziness smpts as well, but otherwise no acute events overnight. Exam/Review of Systems Vital Signs Vitals Vital Signs Date Time Temp Pulse Resp B/P Pulse Ox O2 Delivery O2 Flow Rate FiO2 06/23/16 08:41 66 06/23/16 07:28 98.1 20 125/66 97 06/22/16 20:00 Nasal Cannula 2.0 06/21/16 17:17 28 Intake and Output 06/22/16 06/22/16 06/23/16 15:00 23:00 07:00 Intake Total 100 ml 500 ml Output Total 1975 ml 630 ml 550 ml Balance -1975 ml -530 ml -50 ml Exam Constitutional: No alert Head: normocephalic Eyes: PERRL ENMT: intubated, possible extubation today Respiratory: less crackles/rales, less diminished breath sounds (L>>R), No wheezing Cardiovascular: No murmurs/extra sounds Gastrointestinal: bowel sounds, less distended, soft Extremities: less edema Neurological: focal weakness (movement noted on the R sided only), No nl mental status, No nl speech, No nl strength Skin: other (blister noted posterolateral R knee) Results Result Diagram: 06/23/16 0708 06/23/16 0708 Results 24 hrs Laboratory Tests Test 06/23/16 07:08 06/23/16 07:46 Albumin 2.7 L Anion Gap 14 Basophils # 0.1 Basophils % 0.5 Blood Urea Nitrogen 17 Calcium Level 8.5 Carbon Dioxide Level 26 Chloride Level 106 Creatinine 0.92 Eosinophils # 1.0 H Eosinophils % 9.6 H Glucose Level 110 Hematocrit 34.0 L Hemoglobin 11.0 L Lymphocytes # 2.0 Lymphocytes % 19.1 Mean Corpuscular Hemoglobin 29.3 Mean Corpuscular Hemoglobin Concent 32.4 Mean Corpuscular Volume 90.7 Mean Platelet Volume 10.3 Monocytes # 1.0 H Monocytes % 9.3 Neutrophils # 6.2 Neutrophils % 60.7 Nucleated Red Blood Cells # 0.0 Nucleated Red Blood Cells % 0.0 Phosphorus Level 3.9 Platelet Count 354 # Potassium Level 3.9 Red Blood Count 3.75 L Red Cell Distribution Width 13.8 Sodium Level 142 White Blood Count 10.3 Lab Scanned Report REFERENCE LAB Medications Medications Current Medications Docusate Sodium (Colace) 100 mg BID PO Last administered on 06/23/16 08:29; Admin Dose 100 MG; Start 06/16/16 at 21:00 Acetaminophen (Tylenol Supp) 650 mg Q6H PRN [place] FEVER Last administered on 19:49; Admin Dose 650 MG; Start 06/16/16 at 22:00 Atorvastatin Calcium (Lipitor) 80 mg HS NGT Last administered on 06/22/16 20: 48; Admin Dose 80 MG; Start 06/17/16 at 21:00 Aspirin (Aspirin) 81 mg DAILY NGT Last administered on 06/23/16 08:29; Admin Dose 81 MG; Start 06/17/16 at 09:00 Clopidogrel Bisulfate (plaVIX) 75 mg DAILY NGT Last administered on 06/23/16 08:29; Admin Dose 75 MG; Start 06/17/16 at 09:00 Metoprolol Tartrate (Lopressor) 25 mg BID NGT Last administered on 06/23/16 08 :30; Admin Dose 25 MG; Start 06/17/16 at 09:00 Amiodarone HCl (Cordarone) 400 mg BID NGT Last administered on 06/18/16 02:17 ; Admin Dose 400 MG; Start 06/18/16 at 02:00; Status Future Hold Mupirocin (Bactroban) 1 applic BID TOP Last administered on 06/23/16 08:29; Admin Dose 1 APPLIC; Start 06/18/16 at 12:00 Miscellaneous Information 1 ea NOTE XX ; Start 06/19/16 at 13:00 Glucose (Glutose) 15 gm Q15M PRN PO DECREASED GLUCOSE; Start 06/19/16 at 13:00 Glucose (Glutose) 22.5 gm Q15M PRN PO DECREASED GLUCOSE; Start 06/19/16 at 13: 00 Dextrose (D50w Syringe) 25 ml Q15M PRN IV DECREASED GLUCOSE; Start 06/19/16 at 13:00 Dextrose (D50w Syringe) 50 ml Q15M PRN IV DECREASED GLUCOSE; Start 06/19/16 at 13:00 Glucagon (Glucagen) 1 mg Q15M PRN IM DECREASED GLUCOSE; Start 06/19/16 at 13:00 Glucose (Glutose) 15 gm Q15M PRN BUCCAL DECREASED GLUCOSE; Start 06/19/16 at 13 :00 Enoxaparin Sodium (Lovenox) 60 mg AM SC Last administered on 06/23/16 08:44; Admin Dose 60 MG; Start 06/20/16 at 09:00 Insulin Aspart (Novolog Insulin Pen) NOVOLOG *MILD* ALGORI... Q6 SC ; Start at 12:00 Nystatin (Nystatin Susp) 5 ml QID PO Last administered on 06/23/16 08:30; Admin Dose 5 ML; Start 06/22/16 at 09:38; Stop 06/29/16 at 09:37 Lisinopril (Zestril) 10 mg DAILY PO Last administered on 06/23/16 08:30; Admin Dose 10 MG; Start 06/22/16 at 13:00 MAREK BECERRA Jun 23, 2016 11:17
[2016-06-23] MEDS: INSULIN ASPART [NOVOLOG] 3 ML PEN SC SCH ×2 (12:00→17:06)
--- NOTE | 2016-06-23 17:35 | RADRPT ---
Vent Rate: 144 bpm RR Interval: 0 msec NV Interval: 0 msec QRS Duration: 88 msec QT Interval: 328 msec QTC Interval: 507 msec P-R-T Anabel: 0 - 13 - 74 degrees Atrial fibrillation with rapid ventricular response Inferior-posterior infarct , possibly acute ACUTE PA Abnormal ECG Electronically Signed By: Chapo White [id number]
--- NOTE | 2016-06-23 17:40 | PN ---
Date/Time of Note Date/Time of Note DATE: 06/23/16 TIME: 17:35 Assessment/Plan VTE Prophylaxis VTE Prophylaxis Intervention: ambulation Lines/Catheters IV Catheter Type (from [facility]): Saline Lock Urinary Cath still in place: No Assessment/Plan Chief Complaint/Hosp Course Patient presents two days after discharge for SBO with a STEMI and VF arrest, has 3 vessel coronary disease and known cardiomyopathy, underwent emergent CABG. Problems: Assessment/Plan STEMI, s/p CABG postop day #7 Post op afib and aflutter, currently in NSR ischemic cardiomyopathy acute respiratory failure, recently extubated Recc: Continue asa, clopidogrel, statin, metoprolol, lisinopril Home soon Reiterated importance of better food choices and regular exercise as a part of a heart healthy lifestyle Subjective 24 Hr Interval Summary Free Text/Dictation He is transferred out of the ICU, has been able to walk in the hallway, feels well. Respiratory: no complaints Cardiovascular: no complaints Exam/Review of Systems Vital Signs Vitals Vital Signs Date Time Temp Pulse Resp B/P Pulse Ox O2 Delivery O2 Flow Rate FiO2 06/23/16 16:20 73 06/23/16 15:51 98.0 20 138/69 96 06/23/16 08:20 Nasal Cannula 2.0 06/21/16 17:17 28 Intake and Output 06/22/16 06/22/16 06/23/16 15:00 23:00 07:00 Intake Total 100 ml 500 ml Output Total 1975 ml 630 ml 550 ml Balance -1975 ml -530 ml -50 ml Exam Constitutional: alert, oriented, well developed Psych: nl mood/affect, no complaints Head: atraumatic, normocephalic Eyes: EOMI, PERRL, nl conjunctiva, nl lids, nl sclera ENMT: nl external ears & nose, nl lips & teeth, nl nasal mucosa & septum Neck: supple, No bruits, No jvd Respiratory: clear to auscultation, normal air movement Cardiovascular: nl pulses, regular rate and rhythm, No murmurs/extra sounds Gastrointestinal: non-tender, soft Musculoskeletal: nl extremities to inspection, nl gait and stance Extremities: normal pulses Neurological: nl mental status, nl speech Skin: nl turgor, No rash or lesions Results Result Diagram: 06/23/16 0708 06/23/16 0708 Results 24 hrs Laboratory Tests Test 06/23/16 07:08 06/23/16 07:46 06/23/16 12:14 06/23/16 17:06 Albumin 2.7 L Anion Gap 14 Basophils # 0.1 Basophils % 0.5 Blood Urea Nitrogen 17 Calcium Level 8.5 Carbon Dioxide Level 26 Chloride Level 106 Creatinine 0.92 Eosinophils # 1.0 H Eosinophils % 9.6 H Glucose Level 110 Hematocrit 34.0 L Hemoglobin 11.0 L Lymphocytes # 2.0 Lymphocytes % 19.1 Mean Corpuscular Hemoglobin 29.3 Mean Corpuscular Hemoglobin Concent 32.4 Mean Corpuscular Volume 90.7 Mean Platelet Volume 10.3 Monocytes # 1.0 H Monocytes % 9.3 Neutrophils # 6.2 Neutrophils % 60.7 Nucleated Red Blood Cells # 0.0 Nucleated Red Blood Cells % 0.0 Phosphorus Level 3.9 Platelet Count 354 # Potassium Level 3.9 Red Blood Count 3.75 L Red Cell Distribution Width 13.8 Sodium Level 142 White Blood Count 10.3 Lab Scanned Report REFERENCE LAB Bedside Glucose 118 97 Medications Medications Current Medications Docusate Sodium (Colace) 100 mg BID PO Last administered on 06/23/16 08:29; Admin Dose 100 MG; Start 06/16/16 at 21:00 Acetaminophen (Tylenol Supp) 650 mg Q6H PRN ID FEVER Last administered on 19:49; Admin Dose 650 MG; Start 06/16/16 at 22:00 Atorvastatin Calcium (Lipitor) 80 mg HS NGT Last administered on 06/22/16 20: 48; Admin Dose 80 MG; Start 06/17/16 at 21:00 Aspirin (Aspirin) 81 mg DAILY NGT Last administered on 06/23/16 08:29; Admin Dose 81 MG; Start 06/17/16 at 09:00 Clopidogrel Bisulfate (plaVIX) 75 mg DAILY NGT Last administered on 06/23/16 08:29; Admin Dose 75 MG; Start 06/17/16 at 09:00 Metoprolol Tartrate (Lopressor) 25 mg BID NGT Last administered on 06/23/16 08 :30; Admin Dose 25 MG; Start 06/17/16 at 09:00 Amiodarone HCl (Cordarone) 400 mg BID NGT Last administered on 06/18/16 02:17 ; Admin Dose 400 MG; Start 06/18/16 at 02:00; Status Future Hold Mupirocin (Bactroban) 1 applic BID TOP Last administered on 06/23/16 08:29; Admin Dose 1 APPLIC; Start 06/18/16 at 12:00 Miscellaneous Information 1 ea NOTE XX ; Start 06/19/16 at 13:00 Glucose (Glutose) 15 gm Q15M PRN PO DECREASED GLUCOSE; Start 06/19/16 at 13:00 Glucose (Glutose) 22.5 gm Q15M PRN PO DECREASED GLUCOSE; Start 06/19/16 at 13: 00 Dextrose (D50w Syringe) 25 ml Q15M PRN IV DECREASED GLUCOSE; Start 06/19/16 at 13:00 Dextrose (D50w Syringe) 50 ml Q15M PRN IV DECREASED GLUCOSE; Start 06/19/16 at 13:00 Glucagon (Glucagen) 1 mg Q15M PRN IM DECREASED GLUCOSE; Start 06/19/16 at 13:00 Glucose (Glutose) 15 gm Q15M PRN BUCCAL DECREASED GLUCOSE; Start 06/19/16 at 13 :00 Insulin Aspart (Novolog Insulin Pen) NOVOLOG *MILD* ALGORI... Q6 SC ; Start at 12:00 Nystatin (Nystatin Susp) 5 ml QID PO Last administered on 06/23/16 17:07; Admin Dose 5 ML; Start 06/22/16 at 09:38; Stop 06/29/16 at 09:37 Lisinopril (Zestril) 10 mg DAILY PO Last administered on 06/23/16 08:30; Admin Dose 10 MG; Start 06/22/16 at 13:00 Enoxaparin Sodium (Lovenox) 40 mg QAM SC ; Start 06/24/16 at 09:00 BAM EBRTRAND Jun 23, 2016 17:40
[2016-06-23] MEDS: ATORVASTATIN 80 MG TAB NGT SCH (21:11)
[2016-06-24] VITALS (12 sets, daily range): BP systolic 105–144; BP diastolic 58–81; PULSE 81–90; RESP 18–21
[2016-06-24 07:32] LABS: ADD SCAN DIFF NO
[2016-06-24 07:40] LABS: BASOPHILS % 0.5 % (0.0-2.0); EOSINOPHILS % 11.5 % (0.0-7.0); HEMATOCRIT 32.5 % (42.0-52.0); HEMOGLOBIN 10.4 g/dl (14.0-18.0); MEAN CORPUSCULAR HEMOGLOBIN 29.4 pg (29.0-33.0); MEAN CORPUSCULAR VOLUME 91.8 fl (82.0-101.0); MEAN PLATELET VOLUME 10.2 fl (7.4-10.4); MONOCYTE # 1.1 10^3/ul (0.3-0.9); MONOCYTES % 12.1 % (0.0-11.0); NEUTROPHIL # 4.7 10^3/ul (1.6-7.5); NEUTROPHILS % 52.8 % (39.0-77.0); PLATELET COUNT 402 10^3/UL (140-415); RED BLOOD COUNT 3.54 10^6/ul (4.70-6.10); RED CELL DISTRIBUTION WIDTH 13.8 % (11.5-14.5); WHITE BLOOD COUNT 8.9 10^3/ul (4.8-10.8)
--- NOTE | 2016-06-24 07:52 | PN ---
Date/Time of Note Date/Time of Note DATE: 06/24/16 TIME: 07:51 Assessment/Plan Lines/Catheters IV Catheter Type (from Nrs): Saline Lock [facility] in Place (from Nrs): No Assessment/Plan Assessment/Plan ambulated yesterday no surgical issues home soon follow up in one to two weeks in my office Exam/Review of Systems Vital Signs Vitals Vital Signs Date Time Temp Pulse Resp B/P Pulse Ox O2 Delivery O2 Flow Rate FiO2 06/24/16 07:07 98.4 59 18 119/60 94 06/23/16 19:15 Nasal Cannula 2.0 06/21/16 17:17 28 Intake and Output 06/23/16 06/23/16 06/24/16 15:00 23:00 07:00 Intake Total 850 ml 500 ml Balance 850 ml 500 ml Results Result Diagram: 06/24/16 0702 06/23/16 0708 TITA CIFUENTES MD Jun 24, 2016 07:52
[2016-06-24 07:53] LABS: POTASSIUM 4.2 mmol/L (3.5-5.1)
[2016-06-24 07:56] LABS: CREATININE 0.92 mg/dl (0.61-1.24)
[2016-06-24 07:57] LABS: CALCIUM 8.7 mg/dl (8.4-10.2)
[2016-06-24] MEDS: METOPROLOL 25 MG TAB NGT SCH ×2 (08:54→21:05)
[2016-06-24] MEDS: ASPIRIN 81 MG TAB NGT SCH (08:55)
[2016-06-24] MEDS: LISINOPRIL 10 MG TAB PO SCH (08:55)
[2016-06-24] MEDS: CLOPIDOGREL 75 MG TAB NGT SCH (08:55)
[2016-06-24] MEDS: NYSTATIN SUSP 5 ML CUP PO SCH (08:55)
[2016-06-24] MEDS: MUPIROCIN 2% 22 GM OINT TOP SCH ×2 (08:55→21:06)
[2016-06-24] MEDS: DOCUSATE SODIUM 100 MG CAP PO SCH ×2 (08:55→21:06)
[2016-06-24] MEDS: ENOXAPARIN 40 MG/0.4 ML SYG SC SCH (09:22)
--- NOTE | 2016-06-24 11:30 | PDOCDIS ---
Discharge Instructions CONDITION Patient Condition: Stable HOME CARE INSTRUCTIONS: Special Diet: cardiac diet ACTIVITY: Activity Restrictions: Slowly Increase Activity FOLLOW UP/APPOINTMENTS Appointments Take your medications as prescribed, see your heart doctor in the clinic in 1 week. MAREK BECERRA Jun 24, 2016 11:30
[2016-06-24] MEDS ORDERED: ASPI81TA3 NGT (11:32)
[2016-06-24] MEDS ORDERED: ATOR80TA75 NGT (11:32)
[2016-06-24] MEDS ORDERED: CLOP75TA28 NGT (11:32)
[2016-06-24] MEDS ORDERED: LISI10TA2 PO (11:32)
[2016-06-24] MEDS ORDERED: METO-448 NGT (11:32)
[2016-06-24] MEDS ORDERED: MUPI22OI2 TOP (11:47)
--- NOTE | 2016-06-24 12:05 | CONS ---
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 recommendations: - d/c nystatin (06/22/2016-) - d/c bactroban at the end of today - monitor Pt clinically off systemic antibiotics management d/w Pt Problems: Consultation Date/Type/Reason Admit Date/Time Jun 16, 2016 at 17:32 Initial Consult Date 06/18/16 Type of Consultation: ID Referring Provider: BRICE MONTELONGO 24 HR Interval Summary Constitutional: improved, no complaints Detailed Summary Eyes: no complaints ENT: no complaints Respiratory: no complaints Cardiovascular: no complaints Gastrointestinal: no complaints Genitourinary: no complaints Musculoskeletal: no complaints, other (slowly doing PT) Skin: no complaints Exam/Review of Systems Vital Signs Vitals Vital Signs Date Time Temp Pulse Resp B/P Pulse Ox O2 Delivery O2 Flow Rate FiO2 06/24/16 11:21 98.1 85 20 144/62 95 06/24/16 08:15 Nasal Cannula 2.0 06/21/16 17:17 28 Intake and Output 06/23/16 06/23/16 06/24/16 14:59 22:59 06:59 Intake Total 850 ml 500 ml Balance 850 ml 500 ml Exam Constitutional: alert, oriented, well developed Psych: nl mood/affect, no complaints Head: atraumatic, normocephalic Eyes: nl conjunctiva, nl lids ENMT: nl external ears & nose, nl nasal mucosa & septum Neck: supple Respiratory: clear to auscultation, normal air movement Cardiovascular: nl pulses, regular rate and rhythm Extremities: No edema 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, nl mental status, nl speech Skin: other (anterior chest wound is dressed, dried blood only) Results Result Diagram: 06/24/16 0702 06/24/16 0702 Results 24 hrs Laboratory Tests Test 06/23/16 12:14 06/23/16 17:06 06/23/16 20:49 06/24/16 07:02 Bedside Glucose 118 97 109 Anion Gap 16 Basophils # 0.0 Basophils % 0.5 Blood Urea Nitrogen 17 Calcium Level 8.7 Carbon Dioxide Level 25 Chloride Level 106 Creatinine 0.92 Eosinophils # 1.0 H Eosinophils % 11.5 H Glucose Level 110 Hematocrit 32.5 L Hemoglobin 10.4 L Lymphocytes # 2.0 Lymphocytes % 22.0 Mean Corpuscular Hemoglobin 29.4 Mean Corpuscular Hemoglobin Concent 32.0 Mean Corpuscular Volume 91.8 Mean Platelet Volume 10.2 Monocytes # 1.1 H Monocytes % 12.1 H Neutrophils # 4.7 Neutrophils % 52.8 Nucleated Red Blood Cells # 0.0 Nucleated Red Blood Cells % 0.0 Platelet Count 402 Potassium Level 4.2 Red Blood Count 3.54 L Red Cell Distribution Width 13.8 Sodium Level 143 White Blood Count 8.9 Medications Medications Current Medications Docusate Sodium (Colace) 100 mg BID PO Last administered on 06/24/16 08:55; Admin Dose 100 MG; Start 06/16/16 at 21:00 Acetaminophen (Tylenol Supp) 650 mg Q6H PRN MI FEVER Last administered on 19:49; Admin Dose 650 MG; Start 06/16/16 at 22:00 Atorvastatin Calcium (Lipitor) 80 mg HS NGT Last administered on 06/23/16 21: 11; Admin Dose 80 MG; Start 06/17/16 at 21:00 Aspirin (Aspirin) 81 mg DAILY NGT Last administered on 06/24/16 08:55; Admin Dose 81 MG; Start 06/17/16 at 09:00 Clopidogrel Bisulfate (plaVIX) 75 mg DAILY NGT Last administered on 06/24/16 08 :55; Admin Dose 75 MG; Start 06/17/16 at 09:00 Metoprolol Tartrate (Lopressor) 25 mg BID NGT Last administered on 06/24/16 08: 54; Admin Dose 25 MG; Start 06/17/16 at 09:00 Amiodarone HCl (Cordarone) 400 mg BID NGT Last administered on 06/18/16 02:17 ; Admin Dose 400 MG; Start 06/18/16 at 02:00; Status Future Hold Mupirocin (Bactroban) 1 applic BID TOP Last administered on 06/24/16 08:55; Admin Dose 1 APPLIC; Start 06/18/16 at 12:00 Nystatin (Nystatin Susp) 5 ml QID PO Last administered on 06/24/16 08:55; Admin Dose 5 ML; Start 06/22/16 at 09:38; Stop 06/29/16 at 09:37 Lisinopril (Zestril) 10 mg DAILY PO Last administered on 06/24/16 08:55; Admin Dose 10 MG; Start 06/22/16 at 13:00 Enoxaparin Sodium (Lovenox) 40 mg QAM SC Last administered on 06/24/16 09:22; Admin Dose 40 MG; Start 06/24/16 at 09:00 NATASHA LUIS M.D. Jun 24, 2016 12:04
--- NOTE | 2016-06-24 12:08 | DS ---
DATE OF ADMISSION: 06/16/2016 DATE OF DISCHARGE: 06/24/2016 HOSPITAL COURSE: The patient initially admitted with chest pain on 06/16/2016. Cardiology saw the patient initially. He was found to have ST elevation myocardial infarction and ventricular fibrillation arrest. He had a prior history of 3-vessel coronary artery disease and known cardiomyopathy. He was admitted and seen by multiple specialists during this hospital stay including infectious disease team, cardiology team, cardiothoracic surgery team and physical therapy team. He underwent emergency coronary artery bypass grafting procedure because of his 3-vessel coronary artery disease. Patient tolerated the procedure well. Afterwards he underwent cardiac rehab and has continued to be followed by the senior product consultant teams and physical therapy team. He was placed on aspirin and Plavix as well as statin and beta maria e and GREG inhibitor. The patient's vital signs remained stable. He had some mild arrhythmias afterwards, but none on the last 24 hours of discharge. He was carefully monitored by cardiothoracic surgery team and cardiology team. The reason infectious disease team saw him was because of some postop fever and sepsis and SIRS, which were improved. He was given IV antibiotics and also nystatin for thrush. He was also placed on Bactroban for MRSA. Afterwards, the patient underwent cardiac rehabilitation. His vital signs remained stable otherwise. He was able to ambulate slowly but surely and tolerate a p.o. diet and after being cleared by cardiology team and cardiothoracic surgery team he was cleared to be discharged home today in improved condition. Of note, the patient on the patient did have an echocardiogram at that time that showed normal left ventricular cavity size, mild concentric left ventricular hypertrophy, mild left ventricular systolic dysfunction, EF of 45%, stage I diastolic dysfunction. Again, this was performed on 06/10/2016 before this admission but that was the most recent echo that we had and patient's specific procedure was an emergent CABG x4. He had WRIGHT to the LAD, SVG to the distal right coronary artery, SVG to the diagonal artery sequence, obtuse marginal artery, endoscopic vein harvesting and epiaortic scanning of the ascending aorta. That was the procedure done for his bypass surgery. Patient will be discharged home today in improved condition. DISCHARGE MEDICATIONS: He will be sent with the following medications: 1. Aspirin 81 mg daily. 2. Atorvastatin 80 mg daily. 3. Plavix 75 mg daily. 4. Lisinopril 10 mg daily. 5. Metoprolol 25 mg b.i.d. 6. Colace 100 mg b.i.d. p.r.n. 7. Zofran 4 mg q.4 p.r.n. He will need to follow up with cardiology team and cardiothoracic surgeon team in the clinic in the next 1 to 2 weeks. FINAL DIAGNOSES: 1. Chest pain with ST elevation myocardial infarction and 3 vessel coronary artery disease status post CABG x4. See above for details of the CABG procedure. 2. Acute respiratory failure, status post intubation, now extubated and breathing well. 3. Status post ventricular fibrillation arrest x2 with return of spontaneous circulation both times. 4. 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 5. Postop day AFib and atrial flutter, now in normal sinus rhythm. 6. Prior methamphetamine user counseled on cessation for that. 7. Status post left lower lobe aspiration pneumonia, status post treatment with antibiotics, now improved. 8. Cardiogenic shock secondary to #1, improved. 9. Severe rhabdomyolysis, resolved. 10. Methicillin-resistant Staphylococcus aureus nares on Bactroban. 11. High cholesterol. 12. Anemia, likely dilutional and secondary to blood loss as well. Hemoglobin is stable presently. No transfusion. 13. History of pulmonary emboli in 2009. 14. Recent small bowel obstruction 06/10/2016, now resolved. 15. History of large basal cell carcinoma of the mid back, status post excision in 2014. 16. History of back wound infection with MSSA, Enterobacter, Klebsiella, Corynebacterium in 2014. 17. History of repair of large ventral incisional hernia in 2009. Time spent discharging patient 50 minutes. Dictated By: MAREK BHAKTA Conf#: [id number] DID#: [id number]
[2016-06-24] MEDS: ATORVASTATIN 80 MG TAB NGT SCH (21:05)
[2016-06-25] VITALS (7 sets, daily range): BP systolic 102–135; BP diastolic 55–62; PULSE 76–90; RESP 18–21
[2016-06-25 06:58] LABS: ADD SCAN DIFF NO
[2016-06-25 07:02] LABS: BASOPHIL # 0.1 10^3/ul (0.0-0.1); BASOPHILS % 0.4 % (0.0-2.0); EOSINOPHILS # 0.9 10^3/ul (0.0-0.5); EOSINOPHILS % 7.7 % (0.0-7.0); HEMATOCRIT 33.3 % (42.0-52.0); HEMOGLOBIN 10.7 g/dl (14.0-18.0); LYMPHOCYTES # 2.7 10^3/ul (0.8-2.9); LYMPHOCYTES % 22.3 % (15.0-51.0); MEAN CORPUSCULAR HEMOGLOBIN 29.5 pg (29.0-33.0); MEAN CORPUSCULAR HGB CONC 32.1 g/dl (32.0-37.0); MEAN CORPUSCULAR VOLUME 91.7 fl (82.0-101.0); MEAN PLATELET VOLUME 10.4 fl (7.4-10.4); MONOCYTE # 1.4 10^3/ul (0.3-0.9); MONOCYTES % 11.5 % (0.0-11.0); NEUTROPHIL # 6.9 10^3/ul (1.6-7.5); NEUTROPHILS % 56.9 % (39.0-77.0); PLATELET COUNT 441 10^3/UL (140-415); RED BLOOD COUNT 3.63 10^6/ul (4.70-6.10); RED CELL DISTRIBUTION WIDTH 14.1 % (11.5-14.5)
[2016-06-25 07:06] LABS: POTASSIUM 4.6 mmol/L (3.5-5.1)
[2016-06-25 07:09] LABS: CREATININE 0.95 mg/dl (0.61-1.24)
[2016-06-25 07:10] LABS: CALCIUM 8.6 mg/dl (8.4-10.2)
[2016-06-25] MEDS: LISINOPRIL 10 MG TAB PO SCH (09:25)
[2016-06-25] MEDS: METOPROLOL 25 MG TAB NGT SCH (09:25)
[2016-06-25] MEDS: DOCUSATE SODIUM 100 MG CAP PO SCH (09:25)
[2016-06-25] MEDS: ASPIRIN 81 MG TAB NGT SCH (09:25)
[2016-06-25] MEDS: CLOPIDOGREL 75 MG TAB NGT SCH (09:25)
[2016-06-25] MEDS: ENOXAPARIN 40 MG/0.4 ML SYG SC SCH (09:52)
--- NOTE | 2016-06-25 10:55 | DS ---
Date/Time of Note Date/Time of Note DATE: 06/25/16 TIME: 10:53 Discharge Summary Admission/Discharge Info Admit Date/Time Jun 16, 2016 at 17:32 Discharge Date/Time Final Diagnosis 1. Chest pain with ST elevation myocardial infarction and 3 vessel coronary artery disease status post CABG x4. See above for details of the CABG procedure. 2. Acute respiratory failure, status post intubation, now extubated and breathing well. 3. Status post ventricular fibrillation arrest x2 with return of spontaneous circulation both times. 4. 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 5. Postop day AFib and atrial flutter, now in normal sinus rhythm. 6. Prior methamphetamine user counseled on cessation for that. 7. Status post left lower lobe aspiration pneumonia, status post treatment with antibiotics, now improved. 8. Cardiogenic shock secondary to #1, improved. 9. Severe rhabdomyolysis, resolved. 10. Methicillin-resistant Staphylococcus aureus nares on Bactroban. 11. High cholesterol. 12. Anemia, likely dilutional and secondary to blood loss as well. Hemoglobin is stable presently. No transfusion. 13. History of pulmonary emboli in 2009. 14. Recent small bowel obstruction 06/10/2016, now resolved. 15. History of large basal cell carcinoma of the mid back, status post excision in 2014. 16. History of back wound infection with MSSA, Enterobacter, Klebsiella, Corynebacterium in 2014. 17. History of repair of large ventral incisional hernia in 2009. Hospital Course HOSPITAL COURSE: The patient initially admitted with chest pain on 06/16/2016. Cardiology saw the patient initially. He was found to have ST elevation myocardial infarction and ventricular fibrillation arrest. He had a prior history of 3-vessel coronary artery disease and known cardiomyopathy. He was admitted and seen by multiple specialists during this hospital stay including infectious disease team, cardiology team, cardiothoracic surgery team and physical therapy team. He underwent emergency coronary artery bypass grafting procedure because of his 3-vessel coronary artery disease. Patient tolerated the procedure well. Afterwards he underwent cardiac rehab and has continued to be followed by the practice consultant teams and physical therapy team. He was placed on aspirin and Plavix as well as statin and beta maria e and GREG inhibitor. The patient's vital signs remained stable. He had some mild arrhythmias afterwards, but none on the last 24 hours of discharge. He was carefully monitored by cardiothoracic surgery team and cardiology team. The reason infectious disease team saw him was because of some postop fever and sepsis and SIRS, which were improved. He was given IV antibiotics and also nystatin for thrush. He was also placed on Bactroban for MRSA. Afterwards, the patient underwent cardiac rehabilitation. His vital signs remained stable otherwise. He was able to ambulate slowly but surely and tolerate a p.o. diet and after being cleared by cardiology team and cardiothoracic surgery team he was cleared to be discharged home today in improved condition. Of note, the patient on the patient did have an echocardiogram at that time that showed normal left ventricular cavity size, mild concentric left ventricular hypertrophy, mild left ventricular systolic dysfunction, EF of 45%, stage I diastolic dysfunction. Again, this was performed on 06/10/2016 before this admission but that was the most recent echo that we had and patient's specific procedure was an emergent CABG x4. He had WRIGHT to the LAD, SVG to the distal right coronary artery, SVG to the diagonal artery sequence, obtuse marginal artery, endoscopic vein harvesting and epiaortic scanning of the ascending aorta. That was the procedure done for his bypass surgery. Patient will be discharged home today in improved condition. DISCHARGE MEDICATIONS: 1. Aspirin 81 mg daily. 2. Atorvastatin 80 mg daily. 3. Plavix 75 mg daily. 4. Lisinopril 10 mg daily. 5. Metoprolol 25 mg b.i.d. 6. Colace 100 mg b.i.d. p.r.n. 7. Zofran 4 mg q.4 p.r.n. 8. Bactroban BID 9. Polymyxin ointment BID x 5 days Home Meds Active Scripts Mupirocin* (Bactroban*) 2% -22 Gram Oint...g., 1 APPLIC TOP BID for 7 Days Prov:MAREK BECERRA S. 06/24/16 Lisinopril* (Lisinopril*) 10 Mg Tablet, 10 MG PO DAILY, #30 TAB 4 Refills Prov:MAREK BECERRA S. 06/24/16 Metoprolol Tartrate* (Lopressor*) 25 Mg Tab, 25 MG NGT BID, #60 TAB 4 Refills Prov:MAREK BECERRA S. 06/24/16 Clopidogrel Bisulfate (Clopidogrel) 75 Mg Tablet, 75 MG NGT DAILY, #30 TAB 8 Refills Prov:MARIA R BECERRAP S. 06/24/16 Atorvastatin* (Atorvastatin*) 80 Mg Tablet, 80 MG NGT HS, #30 TAB 4 Refills Prov:JAZZGREGORIOMAREK S. 06/24/16 Aspirin (Aspirin) 81 Mg Chew, 81 MG NGT DAILY, #30 TAB 4 Refills Prov:MAREK SCHULZ S. 06/24/16 Docusate Sodium* (Colace*) 100 Mg Capsule, 100 MG PO BID Y for CONSTIPATION, # 30 CAP Prov:JHONATAN BENDER 06/12/16 Ondansetron Hcl* (Zofran*) 4 Mg Tab, 4 MG PO Q4H Y for NAUSEA AND OR VOMITING, # 30 TAB Prov:JHONATAN BENDER 06/12/16 Discontinued Scripts Lisinopril* (Zestril*) 5 Mg Tablet, 5 MG PO DAILY, #30 TAB Prov:JHONATAN BENDER 06/13/16 Metoprolol Tartrate* (Lopressor*) 25 Mg Tab, 12.5 MG PO BID for 30 Days, TAB Prov:REGJHONATAN CHAPMAN 06/13/16 Furosemide (Lasix) 20 Mg Tab, 20 MG PO DAILY for 30 Days, TAB Prov:JHONATAN BENDER 06/13/16 Pending Labs Laboratory Tests Test 06/25/16 06:00 Anion Gap 15 (8-16) Basophils # 0.110^3/ul (0.0-0.1) Basophils % 0.4% (0.0-2.0) Blood Urea Nitrogen 16mg/dl (7-20) Calcium Level 8.6mg/dl (8.4-10.2) Carbon Dioxide Level 27mmol/L (21-31) Chloride Level 105mmol/L (97-110) Creatinine 0.95mg/dl (0.61-1.24) Eosinophils # 0.910^3/ul (0.0-0.5) Eosinophils % 7.7% (0.0-7.0) Glucose Level 107mg/dl (70-220) Hematocrit 33.3% (42.0-52.0) Hemoglobin 10.7g/dl (14.0-18.0) Lymphocytes # 2.710^3/ul (0.8-2.9) Lymphocytes % 22.3% (15.0-51.0) Mean Corpuscular Hemoglobin 29.5pg (29.0-33.0) Mean Corpuscular Hemoglobin Concent 32.1g/dl (32.0-37.0) Mean Corpuscular Volume 91.7fl (82.0-101.0) Mean Platelet Volume 10.4fl (7.4-10.4) Monocytes # 1.410^3/ul (0.3-0.9) Monocytes % 11.5% (0.0-11.0) Neutrophils # 6.910^3/ul (1.6-7.5) Neutrophils % 56.9% (39.0-77.0) Nucleated Red Blood Cells # 0.010^3/ul (0.0-0.0) Nucleated Red Blood Cells % 0.0/100WBC (0.0-0.0) Platelet Count 33659^3/UL (140-415) Potassium Level 4.6mmol/L (3.5-5.1) Red Blood Count 3.6310^6/ul (4.70-6.10) Red Cell Distribution Width 14.1% (11.5-14.5) Sodium Level 142mmol/L (135-144) White Blood Count 12.010^3/ul (4.8-10.8) MAREK BECERRA Jun 25, 2016 10:55
[2016-06-25] MEDS ORDERED: BACITUD TOP (10:57)
== END 2016-06-25 13:45 | disposition home or self-care (01) | DRG 233 ==
LOC: E/R 10:43 → SDS 11:17 → CCL 11:17 → ICU 17:32 → CCL 17:41 → TEL 06-22 19:52
PROVIDERS: ADMIT Family Medicine; ATTEND Family Medicine
PROC: 5A02210 Assistance with Cardiac Output using Balloon Pump, Continuous (ICD-10-PCS; 2016-06-16)
PROC: 5A12012 Performance of Cardiac Output, Single, Manual (ICD-10-PCS; 2016-06-16)
PROC: 02100Z9 Bypass Coronary Artery, One Artery from Left Internal Mammary, Open Approach (ICD-10-PCS; 2016-06-16)
PROC: 06BQ4ZZ Excision of Left Saphenous Vein, Percutaneous Endoscopic Approach (ICD-10-PCS; 2016-06-16)
PROC: 02QA0ZZ Repair Heart, Open Approach (ICD-10-PCS; 2016-06-16)
PROC: 5A1221Z Performance of Cardiac Output, Continuous (ICD-10-PCS; 2016-06-16)
PROC: 5A2204Z Restoration of Cardiac Rhythm, Single (ICD-10-PCS; 2016-06-16)
PROC: 5A12012 Performance of Cardiac Output, Single, Manual (ICD-10-PCS; 2016-06-16)
PROC: 5A1955Z Respiratory Ventilation, Greater than 96 Consecutive Hours (ICD-10-PCS; 2016-06-16)
PROC: 5A2204Z Restoration of Cardiac Rhythm, Single (ICD-10-PCS; 2016-06-16)
PROC: 0212093 Bypass Coronary Artery, Three Arteries from Coronary Artery with Autologous Venous Tissue, Open Approach (ICD-10-PCS; principal; 2016-06-16 11:00)
PROC: B211YZZ Fluoroscopy of Multiple Coronary Arteries using Other Contrast (ICD-10-PCS; 2016-06-16 11:00)
PROC: 02P Heart and Great Vessels, Removal (ICD-10-PCS; 2016-06-18)
DX: I21.21 ST elevation (STEMI) myocardial infarction involving left circumflex coronary artery (principal); I46.2 Cardiac arrest due to underlying cardiac condition; J96.00 Acute respiratory failure, unspecified whether with hypoxia or hypercapnia; I49.01 Ventricular fibrillation; R57.0 Cardiogenic shock; R65.20 Severe sepsis without septic shock; A41.9 Sepsis, unspecified organism; J69.0 Pneumonitis due to inhalation of food and vomit; L89.109 Pressure ulcer of unspecified part of back, unspecified stage; I42.7 Cardiomyopathy due to drug and external agent; I97.710 Intraoperative cardiac arrest during cardiac surgery; M62.82 Rhabdomyolysis; I48.92 Unspecified atrial flutter; T81.4XXA Infection following a procedure, initial encounter; E44.0 Moderate protein-calorie malnutrition; D62 Acute posthemorrhagic anemia; I25.10 Atherosclerotic heart disease of native coronary artery without angina pectoris; I25.5 Ischemic cardiomyopathy; E66.9 Obesity, unspecified; Z68.31 Body mass index [BMI] 31.0-31.9, adult; F15.90 Other stimulant use, unspecified, uncomplicated; I48.91 Unspecified atrial fibrillation; E78.00 Pure hypercholesterolemia, unspecified; B37.9 Candidiasis, unspecified; E78.5 Hyperlipidemia, unspecified; E87.70 Fluid overload, unspecified; I10 Essential (primary) hypertension; I25.82 Chronic total occlusion of coronary artery; Y83.2 Surgical operation with anastomosis, bypass or graft as the cause of abnormal reaction of the patient, or of later complication, without mention of misadventure at the time of the procedure; Y92.234 Operating room of hospital as the place of occurrence of the external cause; Z22.322 Carrier or suspected carrier of Methicillin resistant Staphylococcus aureus; Z85.828 Personal history of other malignant neoplasm of skin; Z86.718 Personal history of other venous thrombosis and embolism
CPT/HCPCS: 36592; 36600; 71010; 80048; 80053; 80061; 80069; 80076; 80202; 80307; 82550; 82553; 82803; 82962; 83036; 83605; 83735; 84100; 84132; 84134; 84145; 84484; 85014; 85025; 85610; 85730; 86850; 86900; 86901; 86920; 87040; 87070; 87081; 87086; 89220; 92610; 93005; 93312; 93325; 93458; 94002; 94003; 94770; 96374; 97116; 97162; 97530; J1940; C1725; C1726; C1769; C1887; J0171; J0282; J0690; J0692; J1170; J1644; J1650; J1815; J1953; J2001; J2250; J2260; J2370; J2440; J2543; J2720; J3010; J3370; J3475; J3480; J7030; J7040; J7042; J7050; J7070; P9045; Q9967

== ENCOUNTER 2016-07-11 14:17 | Inpatient (IN) | payer OTHER ==
[~2016-07-11] VITALS: Ht 185.4 cm; Wt 107.0 kg
[~2016-07-11 14:17] MED LIST changes: -AMIODARONE 150 MG INJ ONE; -AMIODARONE 900 MG INJ ONE; +ASPI81TA3 NGT; -ASPIRIN 81 MG TAB ONE; +ATOR80TA75 NGT; +BACITUD TOP; +CLOP75TA28 NGT; -DEXTROSE 5% WATER 500 ML BAG ONE; -HEPARIN 5,000 UNIT/0.5 ML SYG ONE; -LAS20 PO; -LISI-523 PO; +LISI10TA2 PO; +METO-448 NGT; -METO-448 PO; +MUPI22OI2 TOP
[2016-07-11] MEDS ORDERED: CEFEPIME 2GM/50 ML (PMX) 50 ML IVPB STA (14:24)
[2016-07-11] MEDS ORDERED: ACETAMINOPHEN 325 MG TAB PO STA (14:24)
[2016-07-11] MEDS ORDERED: SODIUM CHLORIDE 0.9% 1L BAG IV* STA (14:24)
[2016-07-11] MEDS ORDERED: VANCOMYCIN 1 GM (PMX) 250 ML IVPB ONE (14:30)
--- NOTE | 2016-07-11 14:46 | RADRPT ---
PROCEDURE: XR Chest. CLINICAL INDICATION: Cough. Sepsis. TECHNIQUE: Single frontal view. COMPARISON: 06/22/2016. FINDINGS: The lungs are clear. The heart is mildly enlarged. There is calcification in the aorta consistent with atherosclerosis. There are sternal wires. Previously noted right internal jugular vein sheath catheter has been rem jyotsna. There is no pleural effusion. There is no pneumothorax. IMPRESSION: 1. Mild cardiomegaly. 2. Atherosclerosis. 3. Clear lungs. 4. Previous median sternotomy. RPTAT: QQ .Steve Lr MD, MD Date Time Electronically viewed and signed by .Steve Lr MD, MD on 07/11/2016 14:46 .R/
[2016-07-11] MEDS ORDERED: CEPH500C PO (14:57)
[2016-07-11] MEDS ORDERED: LIDOCAINE 1%/EPI (MDV) 20 ML INJ SC ONE (15:00)
[2016-07-11 15:03] LABS: ADD SCAN DIFF NO
[2016-07-11 15:06] LABS: ABNORMAL IP MESSAGE 1; BASOPHILS % 0.1 % (0.0-2.0); EOSINOPHILS # 0.1 10^3/ul (0.0-0.5); EOSINOPHILS % 1.1 % (0.0-7.0); HEMATOCRIT 33.7 % (42.0-52.0); HEMOGLOBIN 11.1 g/dl (14.0-18.0); LYMPHOCYTES # 0.5 10^3/ul (0.8-2.9); LYMPHOCYTES % 5.9 % (15.0-51.0); MEAN CORPUSCULAR HEMOGLOBIN 29.7 pg (29.0-33.0); MEAN CORPUSCULAR HGB CONC 32.9 g/dl (32.0-37.0); MEAN CORPUSCULAR VOLUME 90.1 fl (82.0-101.0); MEAN PLATELET VOLUME 9.8 fl (7.4-10.4); MONOCYTE # 0.6 10^3/ul (0.3-0.9); MONOCYTES % 6.8 % (0.0-11.0); NEUTROPHIL # 7.9 10^3/ul (1.6-7.5); NEUTROPHILS % 85.8 % (39.0-77.0); PLATELET COUNT 314 10^3/UL (140-415); RED BLOOD COUNT 3.74 10^6/ul (4.70-6.10); RED CELL DISTRIBUTION WIDTH 14.2 % (11.5-14.5); WHITE BLOOD COUNT 9.2 10^3/ul (4.8-10.8)
[2016-07-11 15:17] LABS: INR 1.08; PT RATIO 1.1
[2016-07-11 15:18] LABS: ALBUMIN 3.3 g/dl (3.3-4.9); CHLORIDE 102 mmol/L (97-110); PARTIAL THROMBOPLASTIN TIME 31.6 Sec (25.0-35.0)
[2016-07-11 15:19] LABS: POTASSIUM 4.8 mmol/L (3.5-5.1); SODIUM 137 mmol/L (135-144)
[2016-07-11 15:21] LABS: ALBUMIN/GLOBULIN RATIO 0.82; ANION GAP 17 (8-16); ASPARTATE AMINO TRANSFERASE 26 IU/L (15-46); BILIRUBIN,INDIRECT 0.9 mg/dl (0-1.1); BILIRUBIN,TOTAL 0.9 mg/dl (0.2-1.3); BLOOD UREA NITROGEN 19 mg/dl (7-20); CARBON DIOXIDE 23 mmol/L (21-31); CREATININE 1.07 mg/dl (0.61-1.24); TOTAL PROTEIN 7.3 g/dl (6.1-8.1)
[2016-07-11 15:22] LABS: ALANINE AMINOTRANSFERASE 25 IU/L (13-69); ALKALINE PHOSPHATASE 116 IU/L (42-121); CALCIUM 8.7 mg/dl (8.4-10.2); GLUCOSE 100 mg/dl (70-220)
[2016-07-11 15:37] LABS: TROPONIN-I < 0.012 ng/ml (0.00-0.12)
[2016-07-11 15:50] VITALS: TEMP 103.5
[2016-07-11] MEDS ORDERED: ONDANSETRON 4 MG INJ IV PRN ×2 (16:00→16:30)
[2016-07-11] MEDS ORDERED: ACETAMINOPHEN 325 MG TAB PO PRN (16:00)
--- NOTE | 2016-07-11 16:20 | ERA ---
ER Documentation Chief Complaint Date/Time DATE: 07/11/16 TIME: 16:17 Chief Complaint C/O GENERALIZED WEAKNESS , BODYACHE , NO CP , NO SOB HPI Patient is a 61-year-old male with coronary disease and hypertension who presents with infection. The patient said that he had a CABG done 2 weeks ago. He has an infection in his left calf. He has been taking Keflex over the past 3 days and says that it is a little bit better but he had whole-body chills today. He feels dehydrated. He does have a fever as well. Upon review of old medical records the patient has multiple visits for various complaints. ROS All systems reviewed and are negative except as per history of present illness. Medications Home Meds Active Scripts Lisinopril* (Lisinopril*) 10 Mg Tablet, 10 MG PO DAILY, #30 TAB 4 Refills Prov:MAREK BECERRA S. 06/24/16 Metoprolol Tartrate* (Lopressor*) 25 Mg Tab, 25 MG NGT BID, #60 TAB 4 Refills Prov:MAREK BECERRA S. 06/24/16 Clopidogrel Bisulfate (Clopidogrel) 75 Mg Tablet, 75 MG NGT DAILY, #30 TAB 8 Refills Prov:MAREK BECERRA S. 06/24/16 Atorvastatin* (Atorvastatin*) 80 Mg Tablet, 80 MG NGT HS, #30 TAB 4 Refills Prov:MAREK BECERRA S. 06/24/16 Aspirin (Aspirin) 81 Mg Chew, 81 MG NGT DAILY, #30 TAB 4 Refills Prov:MAREK BECERRA S. 06/24/16 Reported Medications Cephalexin* (Cephalexin*) 500 Mg Capsule, 500 MG PO QID, #28 CAP 07/11/16 Discontinued Scripts Bacitracin* (Bacitracin Oint (UD)*) 1 Applic Oint, 1 APPLIC TOP BID for 5 Days, PKT APPLY TO Prov:MAREK BECERRA S. 06/25/16 Mupirocin* (Bactroban*) 2% -22 Gram Oint...g., 1 APPLIC TOP BID for 7 Days Prov:MAREK BECERRA S. 06/24/16 Docusate Sodium* (Colace*) 100 Mg Capsule, 100 MG PO BID Y for CONSTIPATION, # 30 CAP Prov:REGIDOR,JHONATAN 06/12/16 Ondansetron Hcl* (Zofran*) 4 Mg Tab, 4 MG PO Q4H Y for NAUSEA AND OR VOMITING, # 30 TAB Prov:ANN BENDERNELL 06/12/16 Allergies Allergies: Coded Allergies: No Known Allergy (Verified , 07/11/16) PMhx/Soc History of Surgery: Yes (mesh plaement , CABAG) Anesthesia Reaction: No Hx Neurological Disorder: No Hx Respiratory Disorders: No Hx Cardiac Disorders: Yes (HTN, CABAG) Hx Psychiatric Problems: No Hx Miscellaneous Medical Probl: Yes (sepsis, MRSA, PE, SBO, basal cell carcinoma, hernia) Hx Alcohol Use: Yes (OOC) Hx Substance Use: No Hx Tobacco Use: No Smoking Status: Never smoker FmHx Family History: No diabetes Physical Exam Vitals Vital Signs Date Time Temp Pulse Resp B/P Pulse Ox O2 Delivery O2 Flow Rate FiO2 07/11/16 15:50 103.5 85 18 98/64 98 Room Air 07/11/16 15:48 Nasal Cannula 2 07/11/16 14:19 103.5 98 18 110/56 98 Physical Exam Const: No acute distress Head: Atraumatic Eyes: Normal Conjunctiva ENT: Normal External Ears, Nose and Mouth. Neck: Full range of motion..~ No meningismus. Resp: Clear to auscultation bilaterally Cardio: Regular rate and rhythm, no murmurs Abd: Soft, non tender, non distended. Normal bowel sounds Skin: Fluctuant abscess to the left inner leg below the knee with surrounding erythema Back: No midline or flank tenderness Ext: No cyanosis, or edema Neur: Awake and alert Psych: Normal Mood and Affect Result Diagram: 07/11/16 1440 07/11/16 1440 Results 24 hrs Laboratory Tests Test 07/11/16 14:40 Activated Partial Thromboplast Time 31.6Sec Alanine Aminotransferase (ALT/SGPT) 25IU/L Albumin 3.3g/dl Albumin/Globulin Ratio 0.82 Alkaline Phosphatase 116IU/L Anion Gap 17 Aspartate Amino Transf (AST/SGOT) 26IU/L Basophils # 0.010^3/ul Basophils % 0.1% Blood Urea Nitrogen 19mg/dl Calcium Level 8.7mg/dl Carbon Dioxide Level 23mmol/L Chloride Level 102mmol/L Creatinine 1.07mg/dl Direct Bilirubin 0.00mg/dl Eosinophils # 0.110^3/ul Eosinophils % 1.1% Globulin 4.00g/dl Glucose Level 100mg/dl Hematocrit 33.7% Hemoglobin 11.1g/dl INR International Normalized Ratio 1.08 Indirect Bilirubin 0.9mg/dl Lactic Acid Level 1.4mmol/L Lymphocytes # 0.510^3/ul Lymphocytes % 5.9% Mean Corpuscular Hemoglobin 29.7pg Mean Corpuscular Hemoglobin Concent 32.9g/dl Mean Corpuscular Volume 90.1fl Mean Platelet Volume 9.8fl Monocytes # 0.610^3/ul Monocytes % 6.8% Neutrophils # 7.910^3/ul Neutrophils % 85.8% Nucleated Red Blood Cells # 0.010^3/ul Nucleated Red Blood Cells % 0.0/100WBC Platelet Count 81342^3/UL Potassium Level 4.8mmol/L Prothrombin Time 14.0Sec Prothrombin Time Ratio 1.1 Red Blood Count 3.7410^6/ul Red Cell Distribution Width 14.2% Sodium Level 137mmol/L Total Bilirubin 0.9mg/dl Total Protein 7.3g/dl Troponin I < 0.012ng/ml White Blood Count 9.210^3/ul Current Medications Medications (Trade) Dose Ordered Sig/Ramesh Route PRN Reason Start Time Stop Time Status Last Admin Dose Admin Sodium Chloride (NS) 3,320 ml BOLUS OVER 2 HOURS STAT IV* 07/11/16 14:24 07/11/16 14:26 DC 07/11/16 15:27 Acetaminophen 650 mg 650 mg ONCE STAT PO 07/11/16 14:24 07/11/16 14:26 DC 07/11/16 15:28 Cefepime HCl 50 ml @ 100 mls/hr ONCE STAT IVPB 07/11/16 14:24 07/11/16 14:53 DC 07/11/16 15:27 Vancomycin HCl (Vancocin) 250 ml @ 125 mls/hr ONCE ONCE IVPB 07/11/16 14:30 07/11/16 16:29 Lidocaine/ Epinephrine (Xylocaine 1%/ Epi (Mdv) 20 ml) 20 ml ONCE ONCE SC 07/11/16 15:00 07/11/16 15:01 DC Ondansetron HCl (Zofran Inj) 4 mg BRIDGE ORDER PRN IV NAUSEA AND/OR VOMITING 07/11/16 16:00 07/12/16 15:59 Acetaminophen (Tylenol Tab) 650 mg ER BRIDGE PRN PO MILD PAIN/FEVER 07/11/16 16:00 07/12/16 15:59 Aspirin (Aspirin) 81 mg DAILY NGT 07/12/16 09:00 UNV Atorvastatin Calcium (Lipitor) 80 mg HS NGT 07/11/16 21:00 UNV Clopidogrel Bisulfate (plaVIX) 75 mg DAILY NGT 07/12/16 09:00 UNV Lisinopril (Zestril) 10 mg DAILY PO 07/12/16 09:00 UNV Metoprolol Tartrate (Lopressor) 25 mg BID NGT 07/11/16 21:00 UNV Procedures/MDM Abscess Incision and Drainage with irrigation by me: Location: Left lower extremity Anesthesia: Local 1% Lidocaine with epinephrine Technique: Irrigated. Disrupted loculations w/ instrumentation Packing: None Complications: Neurovascularly intact post procedure ED Ultrasound: Abscess localized by me using concurrent ultrasound guidance and assessment of the anatomy. Real time image archived in the medical record confirms anatomy. Patient is a 61-year-old male presents with right rigors and left leg infection which is failed outpatient treatment. The patient required incision and drainage at the bedside. Given the fact that he has already been on Keflex I do believe that admission to the hospital is appropriate. The patient was given broad-spectrum antibiotics with vancomycin and cefepime. Cultures are pending. Lactic acid was normal. White blood cell count was normal. At this point I doubt sepsis. The patient did have a fever and was given Tylenol. I spoke with Dr. Mai for admission as the [facility]. Departure Diagnosis: Primary Impression: Cellulitis Qualified Code: L03.116 - Cellulitis of left lower extremity Additional Impression: Abscess Condition: CORI Aguillon MD Jul 11, 2016 16:20
[2016-07-11] MEDS ORDERED: HYDROCODONE/APAP (5/325) TAB PO PRN ×2 (16:30)
[2016-07-11] MEDS ORDERED: NACL 0.9% 3 ML SYG IV SCH (16:30)
[2016-07-11] MEDS ORDERED: morphine 2 MG INJ IV PRN (16:30)
[2016-07-11] MEDS ORDERED: ACETAMINOPHEN 650 MG SUPP PR PRN (16:30)
[2016-07-11] MEDS ORDERED: BISACODYL 10 MG SUPP PR PRN (16:30)
[2016-07-11] MEDS ORDERED: MAGNESIUM HYDROXIDE 30ML CUP PO PRN (16:30)
[2016-07-11] MEDS ORDERED: VANCOMYCIN IV PER PHARMACY XX SCH (16:30)
[2016-07-11] MEDS ORDERED: DOCUSATE SODIUM 100 MG CAP PO PRN (16:30)
[2016-07-11 17:04] LABS: ADD UMIC YES; URINE BILIRUBIN (Dip) NEGATIVE (NEGATIVE); URINE BLOOD (Dip) NEGATIVE (NEGATIVE); URINE COLOR LT. YELLOW (YELLOW); URINE GLUCOSE (Dip) NEGATIVE (NEGATIVE); URINE KETONES (Dip) NEGATIVE (NEGATIVE); URINE LEUKOCYTE ESTERASE (Dip) TRACE (NEGATIVE); URINE NITRITE (Dip) NEGATIVE (NEGATIVE); URINE TOTAL PROTEIN (Dip) NEGATIVE (NEGATIVE); URINE UROBILINOGEN (Dip) 0.2 E.U./dL (0.1-1.0)
[2016-07-11] MEDS: SOD CHLORIDE 0.9% 1,000 ML IV SCH (17:39)
[2016-07-11 17:42] LABS: BACTERIA,URINE RARE; URINE RBCS NONE SEEN /HPF ([, 0])
[2016-07-11 17:43] LABS: SQUAMOUS EPITHELIAL CELL,UR RARE
[2016-07-11] MEDS: PIPER-TAZO 3.375 GM IV (PMX) 100 ML IVPB SCH (17:49)
[2016-07-11 17:56] VITALS: BP 107/57; RESP 18
--- NOTE | 2016-07-11 18:07 | HP ---
DATE OF ADMISSION: 07/11/2016 CHIEF COMPLAINT: Left lower extremity wound where the graft site is with reported fevers and failed outpatient treatment. HISTORY OF PRESENT ILLNESS: 1. This is a 61-year-old male with reported past medical history of recent elevated myocardial infarction, status post CABG x4 roughly 2 weeks ago. 2. History of atrial fibrillation. 3. Chronic cardiomyopathy. 4. Atrial fibrillation/atrial flutter. 5. MRSA nares. 6. Anemia. 7. Pulmonary embolism in 2009. 8. SBO recently. 9. Large basal cell carcinoma of the mid back, status post excision in 2014. The patient came to [facility] with reports of left lower extremity wound and pain. According to the patient, he started to have noticed drainage and pus on the graft site where he had a donor vein from for his CABG. He did see his physician as outpatient and was prescribed Keflex on 07/09/2016 due to this issue. He did report that initially it started to work but then gradually this morning he started to have fevers and he started to have reported purulent drainage from the site. He did go to [facility] due to the aforementioned issues. On further examination , he did have a temperature noted as high as 103.5. Blood pressure was noted also 98/64. He had no leukocytosis. He was seen with some anemia, likely chronic. The left lower extremity wound was seen with some serosanguineous drainage. Currently, the patient remains alert and oriented. He denies any other associated symptoms. No chest pain or shortness of breath, no nausea, vomiting or diarrhea. He still reports having some subjective chills and fevers. We will evaluate him for the aforementioned issues. MEDICAL AND SURGICAL HISTORY: 1. ST elevated myocardial infarction with 3-vessel coronary artery disease status post CABG x4. 2. Ventricular fibrillation arrest. 3. 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 4. History of methamphetamine abuse. 5. History of cardiogenic shock. 6. MRSA of the nares. 7. Dyslipidemia. 8. Anemia, likely of chronic disease. 9. History of pulmonary embolism in 2009. 10. History of small-bowel obstruction on 06/10/2016. 11. History of a large basal cell carcinoma in the mid back, status post excision in 2014. 12. History of back wound infection with MSSA, Enterobacter, Klebsiella and Corynebacterium in 2014. 12. History of repair of large ventral incisional hernia in 2009. SOCIAL HISTORY: The patient denies any cigarette smoking, alcohol consumption or drug use at this time. ALLERGIES: NO KNOWN ALLERGIES. FAMILY HISTORY: Noncontributory. HOME MEDICATIONS: 1. Keflex 500 mg p.o. q.i.d. 2. Plavix 75 mg p.o. daily. 3. Atorvastatin 80 mg p.o. at bedtime. 4. Lisinopril 10 mg p.o. every day. 5. Lopressor 25 mg b.i.d. 6. Aspirin 81 mg p.o. daily. REVIEW OF SYSTEMS: A 12-point review of systems obtained and is entirely negative except for that mentioned in history of present illness. PHYSICAL EXAMINATION: VITAL SIGNS: Temperature was 103.5, pulse 85, respiratory rate 18, blood pressure 98/64 and pulse ox is 98% on room air. GENERAL: This is a 61-year-old male, appears stated age, does report having some chills and fevers. EYES: Pupils equal, round and reactive to light. Anicteric sclerae. NECK: Supple, nontender, no JVD. CARDIOVASCULAR: S1, S2 auscultated, regular rate. PULMONARY: Minimally diminished at lung bases. ABDOMEN: Soft, nontender, nondistended. EXTREMITIES: There is noted edema of bilateral upper extremities, +1 to +2. SKIN: Noted brownish discoloration of bilateral lower extremities with left lower extremity wound seen. He has sanguineous drainage and also a dressing in place. LABORATORY DATA: WBC 9.2, hemoglobin 11.1, hematocrit 32.7, platelets are 314. Sodium 137, potassium 4.8, BUN 19, creatinine 1.07. IMAGING: Chest x-ray done on 07/11/2016 did show mild cardiomegaly and atherosclerosis and clear lungs. IMPRESSION AND PLAN: 1. Sepsis, likely secondary to left lower extremity wound. Will provide antipyretics as needed. Continue on broad spectrum antibiotics. Follow up on wound culture. ID consulted. We will also get a wound care nurse to follow. 2. History of coronary artery disease with recent CABG and STEMI. Will continue optimization with cardiovascular medications with GREG inhibitor as well as beta maria e and statin as well as Plavix. 3. History of methamphetamine abuse. Patient denies any abuse at this time. No apparent active issue. Will monitor. 4. History of coronary artery disease. Continue on antiplatelet therapy. 5. History of atrial fibrillation. Continue beta maria e. 6. Dyslipidemia. Follow up on lipid panel. Continue on statin medication. 7. Anemia. Stable at present. Will monitor hemoglobin and hematocrit for now. ADMISSION PROCESS TIME: 40 minutes. Discussed plan of care with Dr. Mai. Dictated By: JHONATAN BENDER MANAGER [employer] for DESHAUN MAI MD RR/NTS Conf#: [id number] DID#: [id number] MTDD
[2016-07-11 19:40] VITALS: Ht 185.4 cm; Wt 107.0 kg
[2016-07-11 19:47] VITALS: BP 95/50; RESP 20
[2016-07-11] MEDS: VANCOMYCIN 1.5 GM in SOD CHLORIDE 0.9% 250 ML IVPB SCH (20:32)
[2016-07-11] MEDS: METOPROLOL 25 MG TAB NGT SCH (20:33)
[2016-07-11] MEDS: ATORVASTATIN 80 MG TAB NGT SCH (20:35)
[2016-07-11] MEDS: HEPARIN 5,000 UNIT/0.5 ML SYG SC SCH (21:17)
[2016-07-12] MEDS: PIPER-TAZO 3.375 GM IV (PMX) 100 ML IVPB SCH ×4 (00:03→17:07)
[2016-07-12] MEDS: PANTOPRAZOLE 40 MG INJ IV SCH (05:31)
[2016-07-12 06:10] LABS: ALBUMIN 2.8 g/dl (3.3-4.9)
[2016-07-12 06:12] LABS: POTASSIUM 4.1 mmol/L (3.5-5.1)
[2016-07-12 06:13] LABS: ALBUMIN/GLOBULIN RATIO 0.75; BILIRUBIN,INDIRECT 0.7 mg/dl (0-1.1); BILIRUBIN,TOTAL 0.7 mg/dl (0.2-1.3); CREATININE 1.02 mg/dl (0.61-1.24); TOTAL PROTEIN 6.5 g/dl (6.1-8.1)
[2016-07-12 06:14] LABS: CALCIUM 7.9 mg/dl (8.4-10.2); PHOSPHORUS 2.8 mg/dl (2.5-4.9)
[2016-07-12 06:15] LABS: CHOL/HDL RATIO 4.3 RATIO; MAGNESIUM 1.8 mg/dl (1.7-2.5)
[2016-07-12 06:26] LABS: T3 UPTAKE 43.5 % (23.5-40.5)
[2016-07-12 06:40] LABS: THYROID STIMULATING HORMONE 1.73 MIU/L (0.465-4.680)
[2016-07-12 07:59] VITALS: BP 107/58; RESP 20
[2016-07-12] MEDS: VANCOMYCIN 1.5 GM in SOD CHLORIDE 0.9% 250 ML IVPB SCH ×2 (08:10→20:15)
[2016-07-12] MEDS: ASPIRIN 81 MG TAB NGT SCH (08:10)
[2016-07-12] MEDS: CLOPIDOGREL 75 MG TAB NGT SCH (08:10)
[2016-07-12] MEDS: LISINOPRIL 10 MG TAB PO SCH (08:11)
[2016-07-12] MEDS: ACETAMINOPHEN 325 MG TAB PO PRN ×2 (08:12→20:20)
[2016-07-12] MEDS: METOPROLOL 25 MG TAB NGT SCH ×2 (08:12→20:21)
[2016-07-12] MEDS: HEPARIN 5,000 UNIT/0.5 ML SYG SC SCH ×2 (08:21→20:25)
[2016-07-12] MEDS: SOD CHLORIDE 0.9% 1,000 ML IV SCH ×2 (08:22→17:10)
[2016-07-12] MEDS ORDERED: INFLUENZA VIRUS VACCINE 0.5 ML SYG IM* ONE (09:00)
--- NOTE | 2016-07-12 09:22 | PN ---
Date/Time of Note Date/Time of Note DATE: 07/12/16 TIME: 09:10 Assessment/Plan VTE Prophylaxis VTE Prophylaxis Intervention: heparin Lines/Catheters IV Catheter Type (from Nrs): Peripheral IV Assessment/Plan Chief Complaint/Hosp Course Assessment/Plan 1. Sepsis, likely secondary to left lower extremity wound. Will provide antipyretics as needed. Continue on broad spectrum antibiotics. Wound culture pending. ID consult to follow. Awaiting wound care nurse recs 2. History of coronary artery disease with recent CABG and STEMI. Will continue optimization with cardiovascular medications with GREG inhibitor as well as beta maria e and statin as well as Plavix. continue regimen 3. History of methamphetamine abuse. Patient denies any abuse at this time. Will monitor. 4. History of coronary artery disease. Continue on antiplatelet therapy. 5. History of atrial fibrillation. Continue beta maria e. Stable at present 6. Dyslipidemia. Continue statin 7. Anemia. Stable at present. Will monitor hemoglobin and hematocrit for now. DISPO/PLAN: ID consult to follow. cont on abx. Await wound care nurse recs. Discussed plan of care with Dr. Mai Problems: Subjective 24 Hr Interval Summary Free Text/Dictation still noted to be febrile. Still reports having pain LLE Exam/Review of Systems Vital Signs Vitals Vital Signs Date Time Temp Pulse Resp B/P Pulse Ox O2 Delivery O2 Flow Rate FiO2 07/12/16 07:59 100.7 84 20 107/58 99 07/11/16 15:50 Room Air 07/11/16 15:48 2 Intake and Output 07/11/16 07/11/16 07/12/16 15:00 23:00 07:00 Intake Total 650 ml 1340 ml Output Total 620 ml Balance 650 ml 720 ml Exam Constitutional: alert, oriented Psych: nl mood/affect Head: normocephalic Eyes: nl conjunctiva Neck: supple, non-tender, No jvd Respiratory: diminished lung bases Cardiovascular: regular rate and rhythm Gastrointestinal: soft, non-tender Extremities: edema BLE still today +1 Neurological: nl mental status, nl speech, nl strength Skin: brownish discoloration BLE with wound seen LLE slightly sanguinous drainage Results Result Diagram: 07/11/16 1440 07/12/16 0435 Results 24 hrs Laboratory Tests Test 07/11/16 14:40 07/11/16 16:25 07/11/16 16:30 07/11/16 19:24 Activated Partial Thromboplast Time 31.6 Alanine Aminotransferase (ALT/SGPT) 25 Albumin 3.3 Albumin/Globulin Ratio 0.82 Alkaline Phosphatase 116 Anion Gap 17 H Aspartate Amino Transf (AST/SGOT) 26 Basophils # 0.0 Basophils % 0.1 Blood Urea Nitrogen 19 Calcium Level 8.7 Carbon Dioxide Level 23 Chloride Level 102 Creatinine 1.07 Direct Bilirubin 0.00 Eosinophils # 0.1 Eosinophils % 1.1 Globulin 4.00 H Glucose Level 100 Hematocrit 33.7 L Hemoglobin 11.1 L INR International Normalized Ratio 1.08 Indirect Bilirubin 0.9 Lactic Acid Level 1.4 1.3 1.0 Lymphocytes # 0.5 L Lymphocytes % 5.9 L Mean Corpuscular Hemoglobin 29.7 Mean Corpuscular Hemoglobin Concent 32.9 Mean Corpuscular Volume 90.1 Mean Platelet Volume 9.8 Monocytes # 0.6 Monocytes % 6.8 Neutrophils # 7.9 H Neutrophils % 85.8 H Nucleated Red Blood Cells # 0.0 Nucleated Red Blood Cells % 0.0 Platelet Count 314 # Potassium Level 4.8 Prothrombin Time 14.0 Prothrombin Time Ratio 1.1 Red Blood Count 3.74 L Red Cell Distribution Width 14.2 Sodium Level 137 Total Bilirubin 0.9 Total Protein 7.3 Troponin I < 0.012 White Blood Count 9.2 # Urine Bacteria RARE Urine Bilirubin NEGATIVE Urine Clarity CLEAR Urine Color LT. YELLOW Urine Glucose NEGATIVE Urine Hemoglobin NEGATIVE Urine Ketones NEGATIVE Urine Leukocyte Esterase TRACE H Urine Microscopic RBC NONE SEEN Urine Microscopic WBC 2-5 Urine Nitrite NEGATIVE Urine Specific [place] 1.010 Urine Squamous Epithelial Cells RARE Urine Total Protein NEGATIVE Urine Urobilinogen 0.2 E.U./dL Urine WBC Clumps RARE Urine pH 5.5 Test 07/12/16 04:35 Alanine Aminotransferase (ALT/SGPT) 32 Albumin 2.8 L Albumin/Globulin Ratio 0.75 Alkaline Phosphatase 96 Anion Gap 15 Aspartate Amino Transf (AST/SGOT) 24 Blood Urea Nitrogen 16 Calcium Level 7.9 L Carbon Dioxide Level 21 Chloride Level 107 Cholesterol Level 101 Cholesterol/HDL Ratio 4.3 Creatinine 1.02 Direct Bilirubin 0.00 Free Thyroxine Index 2.04 Globulin 3.70 H Glucose Level 92 HDL Cholesterol 23 L Hemoglobin A1c 5.3 Indirect Bilirubin 0.7 LDL Cholesterol, Calculated 64 Magnesium Level 1.8 Phosphorus Level 2.8 Potassium Level 4.1 Sodium Level 139 Thyroid Stimulating Hormone (TSH) 1.730 Thyroxine (T4) 4.7 L Total Bilirubin 0.7 Total Protein 6.5 Triglycerides Level 72 Triiodothyronine (T3) Uptake 43.5 H Medications Medications Current Medications Aspirin (Aspirin) 81 mg DAILY NGT Last administered on 07/12/16 08:10; Admin Dose 81 MG; Start 07/12/16 at 09:00 Atorvastatin Calcium (Lipitor) 80 mg HS NGT Last administered on 07/11/16 20: 35; Admin Dose 80 MG; Start 07/11/16 at 21:00 Clopidogrel Bisulfate (plaVIX) 75 mg DAILY NGT Last administered on 07/12/16 08:10; Admin Dose 75 MG; Start 07/12/16 at 09:00 Lisinopril (Zestril) 10 mg DAILY PO Last administered on 07/12/16 08:11; Admin Dose 10 MG; Start 07/12/16 at 09:00 Metoprolol Tartrate 25 mg 25 mg BID NGT Last administered on 07/12/16 08:12; Admin Dose 25 MG; Start 07/11/16 at 21:00 Sodium Chloride (NS) 1,000 ml @ 60 mls/hr [id number] IV Last administered on 07/11 17:39; Admin Dose 60 MLS/HR; Start 07/11/16 at 16:12 Ondansetron HCl (Zofran Inj) 4 mg Q6H PRN IV NAUSEA AND/OR VOMITING; Start at 16:30 Acetaminophen (Tylenol Tab) 650 mg Q6H PRN PO PAIN LEVEL 1-3 OR FEVER Last administered on 07/12/16 08:12; Admin Dose 650 MG; Start 07/11/16 at 16:30 Acetaminophen (Tylenol Supp) 650 mg Q6H PRN CA PAIN LEVEL 1-3 OR FEVER; Start 07/11/16 at 16:30 Acetaminophen/ Hydrocodone Bitart (Beatty (5/325)) 1 tab Q6H PRN PO MODERATE PAIN LEVEL 4-6; Start 07/11/16 at 16:30 Acetaminophen/ Hydrocodone Bitart (Beatty (5/325)) 2 tab Q6H PRN PO SEVERE PAIN LEVEL 7-10; Start 07/11/16 at 16:30 Morphine Sulfate (morphine) 2 mg Q4H PRN IV SEVERE PAIN LEVEL 7-10; Start 07/11 at 16:30 Docusate Sodium (Colace) 100 mg Q12H PRN PO CONSTIPATION; Start 07/11/16 at 16: 30 Magnesium Hydroxide (Milk Of Mag) 30 ml DAILY PRN PO CONSTIPATION; Start at 16:30 Bisacodyl (Dulcolax Supp) 10 mg DAILY PRN CA CONSTIPATION; Start 07/11/16 at 16 :30 Pantoprazole (Protonix Iv) 40 mg DAILY@06 IV Last administered on 07/12/16 05: 31; Admin Dose 40 MG; Start 07/12/16 at 06:00 Heparin Sodium (Porcine) 5000 unit 5,000 unit Q12 SC Last administered on 08:21; Admin Dose 5,000 UNIT; Start 07/11/16 at 21:00 Piperacillin Sod/ Tazobactam Sod 100 ml @ 200 mls/hr Q6 IVPB Last administered on 07/12/16 05:31; Admin Dose 200 MLS/HR; Start 07/11/16 at 18:00 Vancomycin HCl/ Sodium Chloride (Vancocin/NS) 250 ml @ 83.333 mls/ hr Q12H IVPB Last administered on 07/12/16 08:10; Admin Dose 83.333 MLS/HR; Start at 20:00 JHONATAN BENDER Jul 12, 2016 09:21
--- NOTE | 2016-07-12 12:37 | CONS ---
ALVA MCGOWAN Andre 07/12/16 1222: Date/Time of Note Date/Time of Note DATE: 07/12/16 TIME: 12:09 Assessment/Plan Assessment/Plan Additional Assessment/Plan Assessment: 1. Recent myocardial infarction/VF arrest, status post CABG x4 roughly 2 weeks ago. 2. History of atrial fibrillation. 3. Chronic cardiomyopathy. 4. Atrial fibrillation/atrial flutter. 5. MRSA nares. 6. Anemia. 7. Pulmonary embolism in 2009. 8. SBO recently. 9. Large basal cell carcinoma of the mid back, status post excision in 2014. Plan: -f/u tee Cx - continue Vanco/Zosyn pending Speciation/ Cx results d/w Dr Quiroz Total consultation time: [id number] Consultation Date/Type/Reason Admit Date/Time Jul 11, 2016 at 15:46 Date of Consultation: Jul 12, 2016 Type of Consultation: ID Reason for Consultation Post-Op Cellulitis/Abscess Hx of Present Illness 61 yo male known to us from prior hospitalization when he was seen for post op sepsis/SIRS following AMI/VF arrest/CABG on 06/16. He wa d/c'd on 06/25. Last (07/09) he developed chills and fever. He saw his surgeon who Dx/d LLE cellulitis at the graft harvest site and placed him on Keflex. Yesterday he presented to ER w/ fever to 103.5. He was was given one dose of Cefepime, wound was I & D and pt admitted and started on Vanco/Zosyn. BCx X2 were drawn(pending) , UA/UCx unremarkable. WCx pending. Current in bed in NAD, denies chills, fever , sweats. Tc 100.7. WBC not done. CXR w/o e/o infective process Constitutional: improved, no complaints Eyes: no complaints ENT: no complaints Respiratory: no complaints Cardiovascular: no complaints Gastrointestinal: no complaints Genitourinary: no complaints Musculoskeletal: no complaints Skin: no complaints Neurologic: no complaints Endocrine: no complaints Lymphatic: no complaints Psychological: no complaints Immunologic: no complaints Past Medical History 1. This is a 61-year-old male with reported past medical history of recent elevated myocardial infarction, status post CABG x4 roughly 2 weeks ago. 2. History of atrial fibrillation. 3. Chronic cardiomyopathy. 4. Atrial fibrillation/atrial flutter. 5. MRSA nares. 6. Anemia. 7. Pulmonary embolism in 2009. 8. SBO recently. 9. Large basal cell carcinoma of the mid back, status post excision in 2015. Family History Significant Family History: no pertinent family hx Social History Smoking Status: Never smoker Drug Use: other (meth/benzo on last adm tox screen) Exam/Review of Systems Vital Signs Vitals Vital Signs Date Time Temp Pulse Resp B/P Pulse Ox O2 Delivery O2 Flow Rate FiO2 07/12/16 10:00 99.8 07/12/16 07:59 84 20 107/58 99 07/11/16 15:50 Room Air 07/11/16 15:48 2 Intake and Output 07/11/16 07/11/16 07/12/16 15:00 23:00 07:00 Intake Total 650 ml 1340 ml Output Total 620 ml Balance 650 ml 720 ml Exam Constitutional: alert, obese, oriented Psych: anxiety, no complaints Head: atraumatic, normocephalic Eyes: EOMI, nl conjunctiva, nl lids, nl sclera ENMT: nl external ears & nose, nl nasal mucosa & septum Neck: non-tender, supple Respiratory: clear to auscultation, normal air movement Cardiovascular: regular rate and rhythm Gastrointestinal: bowel sounds, non-tender, soft Extremities: other (B/L venous stasis dermatitis. Lt upper calf w/ intact dsg, small amt serosanguinous drainage) Neurological: nl mental status, nl speech Results Result Diagram: 07/11/16 1440 07/12/16 0435 Results 24 hrs Laboratory Tests Test 07/11/16 14:40 07/11/16 16:25 07/11/16 16:30 07/11/16 19:24 Activated Partial Thromboplast Time 31.6 Alanine Aminotransferase (ALT/SGPT) 25 Albumin 3.3 Albumin/Globulin Ratio 0.82 Alkaline Phosphatase 116 Anion Gap 17 H Aspartate Amino Transf (AST/SGOT) 26 Basophils # 0.0 Basophils % 0.1 Blood Urea Nitrogen 19 Calcium Level 8.7 Carbon Dioxide Level 23 Chloride Level 102 Creatinine 1.07 Direct Bilirubin 0.00 Eosinophils # 0.1 Eosinophils % 1.1 Globulin 4.00 H Glucose Level 100 Hematocrit 33.7 L Hemoglobin 11.1 L INR International Normalized Ratio 1.08 Indirect Bilirubin 0.9 Lactic Acid Level 1.4 1.3 1.0 Lymphocytes # 0.5 L Lymphocytes % 5.9 L Mean Corpuscular Hemoglobin 29.7 Mean Corpuscular Hemoglobin Concent 32.9 Mean Corpuscular Volume 90.1 Mean Platelet Volume 9.8 Monocytes # 0.6 Monocytes % 6.8 Neutrophils # 7.9 H Neutrophils % 85.8 H Nucleated Red Blood Cells # 0.0 Nucleated Red Blood Cells % 0.0 Platelet Count 314 # Potassium Level 4.8 Prothrombin Time 14.0 Prothrombin Time Ratio 1.1 Red Blood Count 3.74 L Red Cell Distribution Width 14.2 Sodium Level 137 Total Bilirubin 0.9 Total Protein 7.3 Troponin I < 0.012 White Blood Count 9.2 # Urine Bacteria RARE Urine Bilirubin NEGATIVE Urine Clarity CLEAR Urine Color LT. YELLOW Urine Glucose NEGATIVE Urine Hemoglobin NEGATIVE Urine Ketones NEGATIVE Urine Leukocyte Esterase TRACE H Urine Microscopic RBC NONE SEEN Urine Microscopic WBC 2-5 Urine Nitrite NEGATIVE Urine Specific [place] 1.010 Urine Squamous Epithelial Cells RARE Urine Total Protein NEGATIVE Urine Urobilinogen 0.2 E.U./dL Urine WBC Clumps RARE Urine pH 5.5 Test 07/12/16 04:35 Alanine Aminotransferase (ALT/SGPT) 32 Albumin 2.8 L Albumin/Globulin Ratio 0.75 Alkaline Phosphatase 96 Anion Gap 15 Aspartate Amino Transf (AST/SGOT) 24 Blood Urea Nitrogen 16 Calcium Level 7.9 L Carbon Dioxide Level 21 Chloride Level 107 Cholesterol Level 101 Cholesterol/HDL Ratio 4.3 Creatinine 1.02 Direct Bilirubin 0.00 Free Thyroxine Index 2.04 Globulin 3.70 H Glucose Level 92 HDL Cholesterol 23 L Hemoglobin A1c 5.3 Indirect Bilirubin 0.7 LDL Cholesterol, Calculated 64 Magnesium Level 1.8 Phosphorus Level 2.8 Potassium Level 4.1 Sodium Level 139 Thyroid Stimulating Hormone (TSH) 1.730 Thyroxine (T4) 4.7 L Total Bilirubin 0.7 Total Protein 6.5 Triglycerides Level 72 Triiodothyronine (T3) Uptake 43.5 H Medications Medications Current Medications Aspirin (Aspirin) 81 mg DAILY NGT Last administered on 07/12/16 08:10; Admin Dose 81 MG; Start 07/12/16 at 09:00 Atorvastatin Calcium (Lipitor) 80 mg HS NGT Last administered on 07/11/16 20: 35; Admin Dose 80 MG; Start 07/11/16 at 21:00 Clopidogrel Bisulfate (plaVIX) 75 mg DAILY NGT Last administered on 07/12/16 08:10; Admin Dose 75 MG; Start 07/12/16 at 09:00 Lisinopril (Zestril) 10 mg DAILY PO Last administered on 07/12/16 08:11; Admin Dose 10 MG; Start 07/12/16 at 09:00 Metoprolol Tartrate 25 mg 25 mg BID NGT Last administered on 07/12/16 08:12; Admin Dose 25 MG; Start 07/11/16 at 21:00 Sodium Chloride (NS) 1,000 ml @ 60 mls/hr [id number] IV Last administered on 07/11 17:39; Admin Dose 60 MLS/HR; Start 07/11/16 at 16:12 Ondansetron HCl (Zofran Inj) 4 mg Q6H PRN IV NAUSEA AND/OR VOMITING; Start at 16:30 Acetaminophen (Tylenol Tab) 650 mg Q6H PRN PO PAIN LEVEL 1-3 OR FEVER Last administered on 07/12/16 08:12; Admin Dose 650 MG; Start 07/11/16 at 16:30 Acetaminophen (Tylenol Supp) 650 mg Q6H PRN [place] PAIN LEVEL 1-3 OR FEVER; Start 07/11/16 at 16:30 Acetaminophen/ Hydrocodone Bitart ([place] (5/325)) 1 tab Q6H PRN PO MODERATE PAIN LEVEL 4-6; Start 07/11/16 at 16:30 Acetaminophen/ Hydrocodone Bitart ([place] (5/325)) 2 tab Q6H PRN PO SEVERE PAIN LEVEL 7-10; Start 07/11/16 at 16:30 Morphine Sulfate (morphine) 2 mg Q4H PRN IV SEVERE PAIN LEVEL 7-10; Start 07/11 at 16:30 Docusate Sodium (Colace) 100 mg Q12H PRN PO CONSTIPATION; Start 07/11/16 at 16: 30 Magnesium Hydroxide (Milk Of Mag) 30 ml DAILY PRN PO CONSTIPATION; Start at 16:30 Bisacodyl (Dulcolax Supp) 10 mg DAILY PRN [place] CONSTIPATION; Start 07/11/16 at 16 :30 Pantoprazole (Protonix Iv) 40 mg DAILY@06 IV Last administered on 07/12/16 05: 31; Admin Dose 40 MG; Start 07/12/16 at 06:00 Heparin Sodium (Porcine) 5000 unit 5,000 unit Q12 SC Last administered on 08:21; Admin Dose 5,000 UNIT; Start 07/11/16 at 21:00 Piperacillin Sod/ Tazobactam Sod 100 ml @ 200 mls/hr Q6 IVPB Last administered on 07/12/16 05:31; Admin Dose 200 MLS/HR; Start 07/11/16 at 18:00 Vancomycin HCl/ Sodium Chloride (Vancocin/NS) 250 ml @ 83.333 mls/ hr Q12H IVPB Last administered on 07/12/16 08:10; Admin Dose 83.333 MLS/HR; Start at 20:00 Miscellaneous Information (*Rx Drug Level Order Reminder*) VANCOMYCIN TROUGH AT 0700 ONCE ONCE XX ; Start 07/13/16 at 07:00; Stop 07/13/16 at 07:01 NATASHA QUIROZ M.D. 07/13/16 0046: Assessment/Plan Assessment/Plan Additional Assessment/Plan I discussed the management with DANI Mcgowan and agree with above. Exam/Review of Systems Results Result Diagram: 07/11/16 1440 07/12/16 0435 ALVA MCGOWAN Jul 12, 2016 12:22 NATASHA QUIROZ M.D. Jul 13, 2016 00:46
[2016-07-12 13:52] LABS: ADD SCAN DIFF NO
[2016-07-12 13:54] LABS: BASOPHILS % 0.1 % (0.0-2.0); HEMATOCRIT 31.9 % (42.0-52.0); HEMOGLOBIN 10.1 g/dl (14.0-18.0); LYMPHOCYTES # 0.7 10^3/ul (0.8-2.9); LYMPHOCYTES % 10.1 % (15.0-51.0); MEAN CORPUSCULAR HEMOGLOBIN 29.4 pg (29.0-33.0); MEAN CORPUSCULAR HGB CONC 31.7 g/dl (32.0-37.0); MEAN PLATELET VOLUME 9.8 fl (7.4-10.4); MONOCYTE # 0.7 10^3/ul (0.3-0.9); MONOCYTES % 9.4 % (0.0-11.0); NEUTROPHIL # 4.7 10^3/ul (1.6-7.5); PLATELET COUNT 233 10^3/UL (140-415); RED BLOOD COUNT 3.43 10^6/ul (4.70-6.10); RED CELL DISTRIBUTION WIDTH 14.4 % (11.5-14.5); WHITE BLOOD COUNT 7.2 10^3/ul (4.8-10.8)
[2016-07-12] MEDS ORDERED: IODIXANOL LOCM 100 ML BTL ONE (18:36)
[2016-07-12] MEDS ORDERED: SOD CHLORIDE 0.9% 100 ML ONE (18:36)
[2016-07-12 20:00] VITALS: BP 133/64; RESP 20
[2016-07-12] MEDS: ATORVASTATIN 80 MG TAB NGT SCH (20:20)
--- NOTE | 2016-07-12 20:27 | RADRPT ---
PROCEDURE: CT scan left lower extremity with contrast CLINICAL INDICATION: Abscess TECHNIQUE: CT scan of the left lower extremity from the level of the lower thigh to below the ankl e was performed on the high-resolution multidetector CT scanner. 100 cc of Visipaque 320 was adminis tered intravenously. Axial images were obtained with coronal and sagittal reformatted images. Ana ges were reviewed on a high-resolution PACS workstation. CTDI = 4.18 mGy, and the DLP = 274.47 mGy- cm. One or more of the following dose reduction techniques were used: - Automated exposure control. - Adjustment of the mA and/or kV according to patient size. - Use of iterative reconstruction technique. COMPARISON: None available FINDINGS: Fluid collections with contrast enhancing rims consistent with abscesses are seen in medial subcutan eous fat of the left lower extremity above the level of the knee and below the level of the knee wit h the largest below the level of the knee measuring approximately 4.7 x 2.2 x 7.2 cm containing foci of air and appearance of the packing material extending to the skin surface. There are 2 visualized fluid collections above the level of the knee measuring approximately 1.2 x 1 x 2.9 cm more superio rly and 1.4 x 0.9 x 3.9 cm just above the level of the knee. Soft tissue stranding in fat adjacent t o the fluid collections and skin thickening is also seen. Subcutaneous edema in lower lower leg. L ikely small bone islands in distal femur. There is no evidence of osteomyelitis seen. No fracture seen. IMPRESSION: Consistent with abscesses in subcutaneous fat medial left lower extremity as noted above. Please se e above. RPTAT: HJES .William Cintron MD, MD Date Time Electronically viewed and signed by .William Cintron MD, on 07/12/2016 20:27 .S/
[2016-07-13] MEDS: PIPER-TAZO 3.375 GM IV (PMX) 100 ML IVPB SCH ×4 (00:20→17:17)
--- NOTE | 2016-07-13 00:56 | CONS ---
Date/Time of Note Date/Time of Note DATE: 07/13/16 TIME: 00:47 Assessment/Plan Assessment/Plan Chief Complaint/Hosp Course assessment/impression - sepsis - multiple abscess of LLE s/p recent I&D - h/o myocardial infarction/VF arrest, status post CABG x4 roughly 2 weeks ago. - History of atrial fibrillation. - Chronic cardiomyopathy. - Atrial fibrillation/atrial flutter. - h/o MRSA nares. - Anemia. - Pulmonary embolism in 2009. - SBO recently. - Large basal cell carcinoma of the mid back, status post excision in 2014. recommendations (updated after CT result was reviewed) - await the final results of abscess culture - growing Gram negative rods - CT of the lower extremity was obtained. It showed multiple abscesses. we recommend surgical consultation for more I&D - continue empiric vancomycin and pip/tazo pending the wound Cx results I discussed the management with DANI Mcgowan on 07/12/2016. This note is a late entry to reflect our examination on 07/12/2016 Problems: Consultation Date/Type/Reason Admit Date/Time Jul 11, 2016 at 15:46 Date of Consultation: Jul 12, 2016 Type of Consultation: ID Reason for Consultation sepsis Referring Provider: JHONATAN BENDER Hx of Present Illness This is a 61 yo male known to us from prior hospitalization when he was seen for post op sepsis/SIRS following AMI/VF arrest/CABG on 06/16. He wa d/c'd on 06/25. Last (07/09) he developed chills and fever. He saw his surgeon who Dx/d LLE cellulitis at the graft harvest site and placed him on Keflex. Yesterday he presented to ER w/ fever to 103.5. He was was given one dose of Cefepime, wound was I & D and Pt admitted and started on Vanco/Zosyn. BCx x2 were drawn(pending) , UA/UCx unremarkable. WCx pending. Current in bed in NAD, denies chills, fever , sweats. Tc 100.7. WBC not done. CXR w/o e/o infective process. KESHAWN Bender requested ID consultation on this Pt. Constitutional: improved, no complaints Eyes: no complaints ENT: no complaints Respiratory: no complaints Cardiovascular: no complaints Gastrointestinal: no complaints Genitourinary: no complaints Musculoskeletal: no complaints Skin: no complaints Neurologic: no complaints Endocrine: no complaints Lymphatic: no complaints Psychological: anxiety, no complaints Immunologic: no complaints Past Medical History Medical History: coronary artery disease, hypertension, other (PE) Past Surgical History Past Surgical Hx: coronary bypass surgery Social History Smoking Status: Never smoker Drug Use: other (meth/benzo on last adm tox screen) Exam/Review of Systems Vital Signs Vitals Vital Signs Date Time Temp Pulse Resp B/P Pulse Ox O2 Delivery O2 Flow Rate FiO2 07/13/16 00:05 99.4 07/12/16 20:00 84 20 133/64 99 07/11/16 15:50 Room Air 07/11/16 15:48 2 Intake and Output 07/12/16 07/12/16 07/13/16 15:00 23:00 07:00 Intake Total 350 ml 3000 ml Output Total 3800 ml Balance 350 ml -800 ml Results Result Diagram: 07/12/16 1330 07/12/16 0435 Results 24 hrs Laboratory Tests Test 07/12/16 04:35 07/12/16 13:30 Alanine Aminotransferase (ALT/SGPT) 32 Albumin 2.8 L Albumin/Globulin Ratio 0.75 Alkaline Phosphatase 96 Anion Gap 15 Aspartate Amino Transf (AST/SGOT) 24 Blood Urea Nitrogen 16 Calcium Level 7.9 L Carbon Dioxide Level 21 Chloride Level 107 Cholesterol Level 101 Cholesterol/HDL Ratio 4.3 Creatinine 1.02 Direct Bilirubin 0.00 Free Thyroxine Index 2.04 Globulin 3.70 H Glucose Level 92 HDL Cholesterol 23 L Hemoglobin A1c 5.3 Indirect Bilirubin 0.7 LDL Cholesterol, Calculated 64 Magnesium Level 1.8 Phosphorus Level 2.8 Potassium Level 4.1 Sodium Level 139 Thyroid Stimulating Hormone (TSH) 1.730 Thyroxine (T4) 4.7 L Total Bilirubin 0.7 Total Protein 6.5 Triglycerides Level 72 Triiodothyronine (T3) Uptake 43.5 H Basophils # 0.0 Basophils % 0.1 Eosinophils # 1.0 H Eosinophils % 14.0 H Hematocrit 31.9 L Hemoglobin 10.1 L Lymphocytes # 0.7 L Lymphocytes % 10.1 L Mean Corpuscular Hemoglobin 29.4 Mean Corpuscular Hemoglobin Concent 31.7 L Mean Corpuscular Volume 93.0 Mean Platelet Volume 9.8 Monocytes # 0.7 Monocytes % 9.4 Neutrophils # 4.7 Neutrophils % 66.0 Nucleated Red Blood Cells # 0.0 Nucleated Red Blood Cells % 0.0 Platelet Count 233 # Red Blood Count 3.43 L Red Cell Distribution Width 14.4 White Blood Count 7.2 # Medications Medications Current Medications Aspirin (Aspirin) 81 mg DAILY NGT Last administered on 07/12/16 08:10; Admin Dose 81 MG; Start 07/12/16 at 09:00 Atorvastatin Calcium (Lipitor) 80 mg HS NGT Last administered on 07/12/16 20: 20; Admin Dose 80 MG; Start 07/11/16 at 21:00 Clopidogrel Bisulfate (plaVIX) 75 mg DAILY NGT Last administered on 07/12/16 08:10; Admin Dose 75 MG; Start 07/12/16 at 09:00 Lisinopril (Zestril) 10 mg DAILY PO Last administered on 07/12/16 08:11; Admin Dose 10 MG; Start 07/12/16 at 09:00 Metoprolol Tartrate 25 mg 25 mg BID NGT Last administered on 07/12/16 20:21; Admin Dose 25 MG; Start 07/11/16 at 21:00 Sodium Chloride (NS) 1,000 ml @ 60 mls/hr [id number] IV Last administered on 07/12 17:10; Admin Dose 60 MLS/HR; Start 07/11/16 at 16:12 Ondansetron HCl (Zofran Inj) 4 mg Q6H PRN IV NAUSEA AND/OR VOMITING; Start at 16:30 Acetaminophen (Tylenol Tab) 650 mg Q6H PRN PO PAIN LEVEL 1-3 OR FEVER Last administered on 07/12/16 20:20; Admin Dose 650 MG; Start 07/11/16 at 16:30 Acetaminophen (Tylenol Supp) 650 mg Q6H PRN [place] PAIN LEVEL 1-3 OR FEVER; Start 07/11/16 at 16:30 Acetaminophen/ Hydrocodone Bitart ([place] (5/325)) 1 tab Q6H PRN PO MODERATE PAIN LEVEL 4-6; Start 07/11/16 at 16:30 Acetaminophen/ Hydrocodone Bitart ([place] (5/325)) 2 tab Q6H PRN PO SEVERE PAIN LEVEL 7-10; Start 07/11/16 at 16:30 Morphine Sulfate (morphine) 2 mg Q4H PRN IV SEVERE PAIN LEVEL 7-10; Start 07/11 at 16:30 Docusate Sodium (Colace) 100 mg Q12H PRN PO CONSTIPATION; Start 07/11/16 at 16: 30 Magnesium Hydroxide (Milk Of Mag) 30 ml DAILY PRN PO CONSTIPATION; Start at 16:30 Bisacodyl (Dulcolax Supp) 10 mg DAILY PRN [place] CONSTIPATION; Start 07/11/16 at 16 :30 Pantoprazole (Protonix Iv) 40 mg DAILY@06 IV Last administered on 07/12/16 05: 31; Admin Dose 40 MG; Start 07/12/16 at 06:00 Heparin Sodium (Porcine) 5000 unit 5,000 unit Q12 SC Last administered on 20:25; Admin Dose 5,000 UNIT; Start 07/11/16 at 21:00 Piperacillin Sod/ Tazobactam Sod 100 ml @ 200 mls/hr Q6 IVPB Last administered on 07/13/16 00:20; Admin Dose 200 MLS/HR; Start 07/11/16 at 18:00 Vancomycin HCl/ Sodium Chloride (Vancocin/NS) 250 ml @ 83.333 mls/ hr Q12H IVPB Last administered on 07/12/16 20:15; Admin Dose 83.333 MLS/HR; Start at 20:00 Miscellaneous Information (*Rx Drug Level Order Reminder*) VANCOMYCIN TROUGH AT 0700 ONCE ONCE XX ; Start 07/13/16 at 07:00; Stop 07/13/16 at 07:01 NATASHA LUIS M.D. Jul 13, 2016 00:55
[2016-07-13] MEDS: SOD CHLORIDE 0.9% 1,000 ML IV SCH ×2 (01:32→17:17)
[2016-07-13] MEDS: PANTOPRAZOLE 40 MG INJ IV SCH (05:43)
[2016-07-13 07:43] VITALS: BP 115/65; RESP 18
[2016-07-13 08:16] LABS: ADD SCAN DIFF NO
[2016-07-13 08:32] LABS: POTASSIUM 3.9 mmol/L (3.5-5.1)
[2016-07-13 08:35] LABS: CREATININE 1.01 mg/dl (0.61-1.24)
[2016-07-13 08:36] LABS: CALCIUM 8.2 mg/dl (8.4-10.2)
[2016-07-13 08:42] LABS: BASOPHILS % 0.3 % (0.0-2.0); EOSINOPHILS # 1.2 10^3/ul (0.0-0.5); EOSINOPHILS % 15.7 % (0.0-7.0); HEMATOCRIT 32.3 % (42.0-52.0); HEMOGLOBIN 10.3 g/dl (14.0-18.0); LYMPHOCYTES % 13.2 % (15.0-51.0); MEAN CORPUSCULAR HEMOGLOBIN 29.4 pg (29.0-33.0); MEAN CORPUSCULAR HGB CONC 31.9 g/dl (32.0-37.0); MEAN CORPUSCULAR VOLUME 92.3 fl (82.0-101.0); MEAN PLATELET VOLUME 10.3 fl (7.4-10.4); MONOCYTE # 0.8 10^3/ul (0.3-0.9); NEUTROPHIL # 4.4 10^3/ul (1.6-7.5); NEUTROPHILS % 59.5 % (39.0-77.0); PLATELET COUNT 238 10^3/UL (140-415); RED CELL DISTRIBUTION WIDTH 14.5 % (11.5-14.5); WHITE BLOOD COUNT 7.4 10^3/ul (4.8-10.8)
[2016-07-13] MEDS: ASPIRIN 81 MG TAB NGT SCH (08:59)
[2016-07-13] MEDS: CLOPIDOGREL 75 MG TAB NGT SCH (08:59)
[2016-07-13] MEDS: LISINOPRIL 10 MG TAB PO SCH (08:59)
[2016-07-13] MEDS: METOPROLOL 25 MG TAB NGT SCH ×2 (09:00→21:03)
[2016-07-13] MEDS: HEPARIN 5,000 UNIT/0.5 ML SYG SC SCH ×2 (09:05→21:14)
[2016-07-13] MEDS: VANCOMYCIN 1.5 GM in SOD CHLORIDE 0.9% 250 ML IVPB SCH (09:28)
--- NOTE | 2016-07-13 10:23 | PN ---
DATE: 07/13/2016 TIME OF EVALUATION: 9 a.m. SUBJECTIVE DATA: Continues to have low grade fever. OBJECTIVE DATA: VITAL SIGNS: Temperature 98.3, pulse is 72, respiratory rate 18, blood pressure 115/64, oxygen saturation 95% on room air. GENERAL: This is an obese male patient lying in bed in no apparent distress. HEENT: Head normocephalic and atraumatic. Eyes: Anicteric sclerae. Conjunctivae clear. ENT: Nasal septum is midline. Oral mucosa is dry. NECK: Supple. No JVD noticed. RESPIRATORY: Bilaterally clear to auscultation. No adventitious breath sounds. No use of accessory muscles of respiration. CARDIAC: Regular rate and rhythm. Median sternotomy scar clean, dry and intact. ABDOMEN: Soft, nontender and nondistended. Bowel sounds positive in all 4 quadrants. GENITOURINARY: Deferred. EXTREMITIES: Hyperpigmentation of bilateral lower extremities. Left lower extremity wound dressings on the posterior aspect below the knee. Peripheral pulses are palpable. NEUROLOGIC: The patient is awake, alert and oriented. Cranial nerves are grossly intact. LABORATORY AND DIAGNOSTIC DATA: WBC 7.4, hemoglobin 10.3, hematocrit 32.3, platelet count 238, sodium 142, potassium 3.9, chloride 100, carbon dioxide 20, anion gap 16, BUN 10, creatinine 1.01, glucose 91, calcium 8.2. ASSESSMENT AND PLAN: 1. Sepsis secondary to left lower extremity infected wound. Wound culture positive for gram-negative rods. Continue antibiotics as per infectious diseases. No evidence of any septic shock. 2. Infected saphenous vein graft site. Continue antibiotics as per infectious diseases. Continue wound care recommendations. 3. Recent STEMI with ventricular fibrillation cardiac arrest. Status post emergent CABG x4 on 06/16/2016. Continue cardiac medications including aspirin and Plavix. 4. Cardiomyopathy with ejection fraction of 45% as per 2-D echocardiogram on . Continue beta blockers and GREG inhibitors. 5. Coronary artery disease. Continue dual antiplatelet therapy. 6. History of atrial fibrillation. Currently in sinus rhythm. Continue beta blockers. 7. Dyslipidemia. Continue statins. 8. Normocytic, normochromic anemia. Etiology unclear, most probably anemia of chronic disease. We will monitor the H and H closely. We will obtain an iron panel on this patient. 9. History of methamphetamine abuse. We will obtain a urine drug toxicology on this patient. 10. Fluid, electrolytes and nutrition. Low cholesterol diet. 11. Deep vein thrombosis prophylaxis. Subcutaneous heparin. 12. Gastrointestinal prophylaxis. Proton pump inhibitors. PLAN: Continue antibiotics as per Infectious Diseases. Await final cultures. The case was discussed with Dr. Li. KRISTIE LI MD, AM/NORM Conf#: [id number] DID#: [id number] [facility]
--- NOTE | 2016-07-13 13:17 | CONS ---
Date/Time of Note Date/Time of Note DATE: 07/13/16 TIME: 13:15 Assessment/Plan Assessment/Plan Chief Complaint/Hosp Course assessment/impression - sepsis - multiple abscess of LLE s/p recent I&D - h/o myocardial infarction/VF arrest, status post CABG x4 roughly 2 weeks ago. - History of atrial fibrillation. - Chronic cardiomyopathy. - Atrial fibrillation/atrial flutter. - h/o MRSA nares. - Anemia. - Pulmonary embolism in 2009. - SBO recently. - Large basal cell carcinoma of the mid back, status post excision in 2014. recommendations (updated after CT result was reviewed) - await the final results of abscess culture - growing Enterobacter (sensitive to all) and Enterococcus (sensitivities pending) species - CT of the lower extremity was obtained. It showed multiple abscesses. we recommend surgical consultation for more I&D - continue empiric vancomycin and pip/tazo pending the wound Cx results - Above d/w Dr. Myles Problems: Consultation Date/Type/Reason Admit Date/Time Jul 11, 2016 at 15:46 Initial Consult Date 07/12/16 Type of Consultation: Infectious Disease Referring Provider: JHONATAN BENDER 24 HR Interval Summary Free Text/Dictation Tmax 101.9. Pt states fever and chills have improved. Denies CP, SOB, abd pain, n/v/d, dysuria. Wound consult pending per NISHI Poole. Exam/Review of Systems Vital Signs Vitals Vital Signs Date Time Temp Pulse Resp B/P Pulse Ox O2 Delivery O2 Flow Rate FiO2 07/13/16 07:43 98.3 72 18 115/65 95 07/11/16 15:50 Room Air 07/11/16 15:48 2 Intake and Output 07/12/16 07/12/16 07/13/16 15:00 23:00 07:00 Intake Total 350 ml 3000 ml 1180 ml Output Total 3800 ml Balance 350 ml -800 ml 1180 ml Exam Constitutional: alert, obese, oriented, other (sitting in chair in NAD using his laptop), well developed Psych: nl mood/affect Head: atraumatic, normocephalic Neck: supple, No jvd Respiratory: clear to auscultation, normal air movement, other (Sternum with well healed incisional scar) Cardiovascular: irregular rhythm Gastrointestinal: non-tender, soft Neurological: nl mental status, nl speech Skin: nl turgor, other (BLE venous stasis/hyperpigmentation; well healed scar noted to mid upper back; scab noted to Right scapular area), rash or lesions ( LLE open wound, medially below the knee, packed with dressing with significant induration and oozing serous fluid when palpated and with surrounding erythema; New kerlix dressing applied by RN) Results Result Diagram: 07/13/1625 07/13/16 0725 Results 24 hrs Laboratory Tests Test 07/12/16 13:30 07/13/16 07:25 Basophils # 0.0 0.0 Basophils % 0.1 0.3 Eosinophils # 1.0 H 1.2 H Eosinophils % 14.0 H 15.7 H Hematocrit 31.9 L 32.3 L Hemoglobin 10.1 L 10.3 L Lymphocytes # 0.7 L 1.0 Lymphocytes % 10.1 L 13.2 L Mean Corpuscular Hemoglobin 29.4 29.4 Mean Corpuscular Hemoglobin Concent 31.7 L 31.9 L Mean Corpuscular Volume 93.0 92.3 Mean Platelet Volume 9.8 10.3 Monocytes # 0.7 0.8 Monocytes % 9.4 11.0 Neutrophils # 4.7 4.4 Neutrophils % 66.0 59.5 Nucleated Red Blood Cells # 0.0 0.0 Nucleated Red Blood Cells % 0.0 0.0 Platelet Count 233 # 238 Red Blood Count 3.43 L 3.50 L Red Cell Distribution Width 14.4 14.5 White Blood Count 7.2 # 7.4 Anion Gap 16 Blood Urea Nitrogen 10 Calcium Level 8.2 L Carbon Dioxide Level 22 Chloride Level 108 Creatinine 1.01 Glucose Level 91 Potassium Level 3.9 Sodium Level 142 Vancomycin Level Trough 15.8 Medications Medications Current Medications Aspirin (Aspirin) 81 mg DAILY NGT Last administered on 07/13/16 08:59; Admin Dose 81 MG; Start 07/12/16 at 09:00 Atorvastatin Calcium (Lipitor) 80 mg HS NGT Last administered on 07/12/16 20: 20; Admin Dose 80 MG; Start 07/11/16 at 21:00 Clopidogrel Bisulfate (plaVIX) 75 mg DAILY NGT Last administered on 07/13/16 08:59; Admin Dose 75 MG; Start 07/12/16 at 09:00 Lisinopril (Zestril) 10 mg DAILY PO Last administered on 07/13/16 08:59; Admin Dose 10 MG; Start 07/12/16 at 09:00 Metoprolol Tartrate 25 mg 25 mg BID NGT Last administered on 07/13/16 09:00; Admin Dose 25 MG; Start 07/11/16 at 21:00 Sodium Chloride (NS) 1,000 ml @ 60 mls/hr [id number] IV Last administered on 07/12 17:10; Admin Dose 60 MLS/HR; Start 07/11/16 at 16:12 Ondansetron HCl (Zofran Inj) 4 mg Q6H PRN IV NAUSEA AND/OR VOMITING; Start at 16:30 Acetaminophen (Tylenol Tab) 650 mg Q6H PRN PO PAIN LEVEL 1-3 OR FEVER Last administered on 07/12/16 20:20; Admin Dose 650 MG; Start 07/11/16 at 16:30 Acetaminophen (Tylenol Supp) 650 mg Q6H PRN [place] PAIN LEVEL 1-3 OR FEVER; Start 07/11/16 at 16:30 Acetaminophen/ Hydrocodone Bitart ([place] (5/325)) 1 tab Q6H PRN PO MODERATE PAIN LEVEL 4-6; Start 07/11/16 at 16:30 Acetaminophen/ Hydrocodone Bitart ([place] (5/325)) 2 tab Q6H PRN PO SEVERE PAIN LEVEL 7-10; Start 07/11/16 at 16:30 Morphine Sulfate (morphine) 2 mg Q4H PRN IV SEVERE PAIN LEVEL 7-10; Start 07/11 at 16:30 Docusate Sodium (Colace) 100 mg Q12H PRN PO CONSTIPATION; Start 07/11/16 at 16: 30 Magnesium Hydroxide (Milk Of Mag) 30 ml DAILY PRN PO CONSTIPATION; Start at 16:30 Bisacodyl (Dulcolax Supp) 10 mg DAILY PRN [place] CONSTIPATION; Start 07/11/16 at 16 :30 Pantoprazole (Protonix Iv) 40 mg DAILY@06 IV Last administered on 07/13/16 05: 43; Admin Dose 40 MG; Start 07/12/16 at 06:00 Heparin Sodium (Porcine) 5000 unit 5,000 unit Q12 SC Last administered on 09:05; Admin Dose 5,000 UNIT; Start 07/11/16 at 21:00 Piperacillin Sod/ Tazobactam Sod 100 ml @ 200 mls/hr Q6 IVPB Last administered on 07/13/16t 12:53; Admin Dose 200 MLS/HR; Start 07/11/16 at 18:00 Vancomycin HCl/ Sodium Chloride (Vancocin/NS) 250 ml @ 83.333 mls/ hr Q12H IVPB ; Start 07/13/16 at 20:[address] scan LLE 07/12/16: FINDINGS: Fluid collections with contrast enhancing rims consistent with abscesses are seen in medial subcutaneous fat of the left lower extremity above the level of the knee and below the level of the knee with the largest below the level of the knee measuring approximately 4.7 x 2.2 x 7.2 cm containing foci of air and appearance of the packing material extending to the skin surface. There are 2 visualized fluid collections above the level of the knee measuring approximately 1.2 x 1 x 2.9 cm more superiorly and 1.4 x 0.9 x 3.9 cm just above the level of the knee. Soft tissue stranding in fat adjacent to the fluid collections and skin thickening is also seen. Subcutaneous edema in lower lower leg. Likely small bone islands in distal femur. There is no evidence of osteomyelitis seen. No fracture seen. IMPRESSION: Consistent with abscesses in subcutaneous fat medial left lower extremity as noted above. Please see above. CXR 07/11/16: 1. Mild cardiomegaly. 2. Atherosclerosis. 3. Clear lungs. 4. Previous median sternotomy. PENELOPE GOMEZ NP Jul 13, 2016 13:17
[2016-07-13 13:20] LABS: BARBITURATES Negative (NEGATIVE)
[2016-07-13 13:27] LABS: BENZODIAZEPINES Negative (NEGATIVE); CANNABINOIDS Negative (NEGATIVE); COCAINE Negative (NEGATIVE); OPIATES Negative (NEGATIVE)
[2016-07-13 13:36] LABS: IRON 27 ug/dl (35-150)
[2016-07-13 13:46] LABS: TOTAL IRON BINDING CAPACITY 247 ug/dl (241-421)
[2016-07-13 19:00] VITALS: BP 129/60; RESP 20
[2016-07-13] MEDS: VANCOMYCIN 1.25 GM in SOD CHLORIDE 0.9% 250 ML IVPB SCH (21:02)
[2016-07-13] MEDS: ATORVASTATIN 80 MG TAB NGT SCH (21:03)
[2016-07-14] MEDS: SOD CHLORIDE 0.9% 1,000 ML IV SCH ×2 (00:01→10:35)
[2016-07-14 05:51] LABS: ADD SCAN DIFF NO
[2016-07-14] MEDS: PANTOPRAZOLE (EC) 40 MG TAB PO SCH (06:12)
[2016-07-14] MEDS: PIPER-TAZO 3.375 GM IV (PMX) 100 ML IVPB SCH ×3 (06:12→12:23)
[2016-07-14 06:19] LABS: BASOPHILS % 0.3 % (0.0-2.0); HEMATOCRIT 31.5 % (42.0-52.0); HEMOGLOBIN 10.1 g/dl (14.0-18.0); LYMPHOCYTES # 1.2 10^3/ul (0.8-2.9); LYMPHOCYTES % 18.8 % (15.0-51.0); MEAN CORPUSCULAR HEMOGLOBIN 29.4 pg (29.0-33.0); MEAN CORPUSCULAR HGB CONC 32.1 g/dl (32.0-37.0); MEAN CORPUSCULAR VOLUME 91.6 fl (82.0-101.0); MEAN PLATELET VOLUME 10.2 fl (7.4-10.4); MONOCYTE # 0.8 10^3/ul (0.3-0.9); MONOCYTES % 11.4 % (0.0-11.0); NEUTROPHIL # 3.6 10^3/ul (1.6-7.5); NEUTROPHILS % 54.2 % (39.0-77.0); PLATELET COUNT 229 10^3/UL (140-415); RED BLOOD COUNT 3.44 10^6/ul (4.70-6.10); RED CELL DISTRIBUTION WIDTH 14.3 % (11.5-14.5); WHITE BLOOD COUNT 6.6 10^3/ul (4.8-10.8)
[2016-07-14 06:27] LABS: CREATININE 1.04 mg/dl (0.61-1.24)
[2016-07-14 06:28] LABS: CALCIUM 8.2 mg/dl (8.4-10.2)
[2016-07-14 07:29] VITALS: BP 114/57; RESP 24
[2016-07-14] MEDS: LISINOPRIL 10 MG TAB PO SCH (09:00)
[2016-07-14] MEDS: METOPROLOL 25 MG TAB NGT SCH ×2 (09:00→20:50)
[2016-07-14] MEDS: ASPIRIN 81 MG TAB NGT SCH (09:09)
[2016-07-14] MEDS: CLOPIDOGREL 75 MG TAB NGT SCH (09:10)
[2016-07-14] MEDS: HEPARIN 5,000 UNIT/0.5 ML SYG SC SCH ×2 (09:31→21:04)
[2016-07-14] MEDS: VANCOMYCIN 1.25 GM in SOD CHLORIDE 0.9% 250 ML IVPB SCH (09:52)
--- NOTE | 2016-07-14 12:35 | PN ---
Date/Time of Note Date/Time of Note DATE: 07/14/16 TIME: 12:35 Assessment/Plan VTE Prophylaxis VTE Prophylaxis Intervention: heparin Lines/Catheters IV [facility] Saline Lock Assessment/Plan Chief Complaint/Hosp Course 1. Sepsis secondary to left lower extremity infected wound/abscess. Wound culture positive for Enterobacter cloacaae and enterococcus species. Continue antibiotics as per infectious diseases. No evidence of any septic shock. 2. Infected saphenous vein graft site. Continue antibiotics as per infectious diseases. Continue wound care recommendations. 3. Recent STEMI with ventricular fibrillation cardiac arrest. Status post emergent CABG x4 on 06/16/2016. Continue cardiac medications including aspirin and Plavix. 4. Cardiomyopathy with ejection fraction of 45% as per 2-D echocardiogram on . Continue beta blockers and GREG inhibitors. 5. Coronary artery disease. Continue dual antiplatelet therapy. 6. History of atrial fibrillation. Currently in sinus rhythm. Continue beta blockers. 7. Dyslipidemia. Continue statins. 8. Normocytic, normochromic anemia. Etiology unclear, most probably anemia of chronic disease. We will monitor the H and H closely. 9. History of methamphetamine abuse. Urine drug toxicology negative. 10. Fluid, electrolytes and nutrition. Low cholesterol diet. 11. Deep vein thrombosis prophylaxis. Subcutaneous heparin. 12. Gastrointestinal prophylaxis. Proton pump inhibitors. PLAN: Continue antibiotics as per Infectious Diseases. Will inform the cardiac surgeon regarding the patient's admission and the CT findings. The case was discussed with . Problems: Subjective 24 Hr Interval Summary Free Text/Dictation Denies any pain. Remains afebrile. Exam/Review of Systems Vital Signs Vitals Vital Signs Date Time Temp Pulse Resp B/P Pulse Ox O2 Delivery O2 Flow Rate FiO2 07/14/16 07:29 98.1 72 24 114/57 96 07/11/16 15:50 Room Air 07/11/16 15:48 2 Intake and Output 07/13/16 07/13/16 07/14/16 15:00 23:00 07:00 Intake Total 100 ml 1830 ml 1740 ml Output Total 900 ml 500 ml Balance 100 ml 930 ml 1240 ml Exam GENERAL: This is an obese male patient lying in bed in no apparent distress. HEENT: Head normocephalic and atraumatic. Eyes: Anicteric sclerae. Conjunctivae clear. ENT: Nasal septum is midline. Oral mucosa is dry. NECK: Supple. No JVD noticed. RESPIRATORY: Bilaterally clear to auscultation. No adventitious breath sounds. No use of accessory muscles of respiration. CARDIAC: Regular rate and rhythm. Median sternotomy scar clean, dry and intact. ABDOMEN: Soft, nontender and nondistended. Bowel sounds positive in all 4 quadrants. GENITOURINARY: Deferred. EXTREMITIES: Hyperpigmentation of bilateral lower extremities. Left lower extremity wound dressings on the posterior aspect below the knee. Peripheral pulses are palpable. NEUROLOGIC: The patient is awake, alert and oriented. Cranial nerves are grossly intact. Results Result Diagram: 07/14/16 0546 07/14/16 0540 Results 24 hrs Laboratory Tests Test 07/13/16 13:00 07/13/16 13:10 07/14/16 05:40 07/14/16 05:46 Iron Level 27 L Percent Iron Saturation 11 L Total Iron Binding Capacity 247 Ferritin 443.0 H Anion Gap 14 Blood Urea Nitrogen 10 Calcium Level 8.2 L Carbon Dioxide Level 24 Chloride Level 108 Creatinine 1.04 Glucose Level 105 Potassium Level 4.0 Sodium Level 142 Basophils # 0.0 Basophils % 0.3 Eosinophils # 1.0 H Eosinophils % 15.0 H Hematocrit 31.5 L Hemoglobin 10.1 L Lymphocytes # 1.2 Lymphocytes % 18.8 Magnesium Level 1.9 Mean Corpuscular Hemoglobin 29.4 Mean Corpuscular Hemoglobin Concent 32.1 Mean Corpuscular Volume 91.6 Mean Platelet Volume 10.2 Monocytes # 0.8 Monocytes % 11.4 H Neutrophils # 3.6 Neutrophils % 54.2 Nucleated Red Blood Cells # 0.0 Nucleated Red Blood Cells % 0.0 Platelet Count 229 Red Blood Count 3.44 L Red Cell Distribution Width 14.3 White Blood Count 6.6 Medications Medications Current Medications Aspirin (Aspirin) 81 mg DAILY NGT Last administered on 07/14/16 09:09; Admin Dose 81 MG; Start 07/12/16 at 09:00 Atorvastatin Calcium (Lipitor) 80 mg HS NGT Last administered on 07/13/16 21: 03; Admin Dose 80 MG; Start 07/11/16 at 21:00 Clopidogrel Bisulfate (plaVIX) 75 mg DAILY NGT Last administered on 07/14/16 09:10; Admin Dose 75 MG; Start 07/12/16 at 09:00 Lisinopril (Zestril) 10 mg DAILY PO Last administered on 07/13/16 08:59; Admin Dose 10 MG; Start 07/12/16 at 09:00 Metoprolol Tartrate 25 mg 25 mg BID NGT Last administered on 07/13/16 21:03; Admin Dose 25 MG; Start 07/11/16 at 21:00 Sodium Chloride (NS) 1,000 ml @ 60 mls/hr [id number] IV Last administered on 07/14 00:01; Admin Dose 60 MLS/HR; Start 07/11/16 at 16:12 Ondansetron HCl (Zofran Inj) 4 mg Q6H PRN IV NAUSEA AND/OR VOMITING; Start at 16:30 Acetaminophen (Tylenol Tab) 650 mg Q6H PRN PO PAIN LEVEL 1-3 OR FEVER Last administered on 07/12/16 20:20; Admin Dose 650 MG; Start 07/11/16 at 16:30 Acetaminophen (Tylenol Supp) 650 mg Q6H PRN [place] PAIN LEVEL 1-3 OR FEVER; Start 07/11/16 at 16:30 Acetaminophen/ Hydrocodone Bitart ([place] (5/325)) 1 tab Q6H PRN PO MODERATE PAIN LEVEL 4-6; Start 07/11/16 at 16:30 Acetaminophen/ Hydrocodone Bitart ([place] (5/325)) 2 tab Q6H PRN PO SEVERE PAIN LEVEL 7-10; Start 07/11/16 at 16:30 Morphine Sulfate (morphine) 2 mg Q4H PRN IV SEVERE PAIN LEVEL 7-10; Start 07/11 at 16:30 Docusate Sodium (Colace) 100 mg Q12H PRN PO CONSTIPATION; Start 07/11/16 at 16: 30 Magnesium Hydroxide (Milk Of Mag) 30 ml DAILY PRN PO CONSTIPATION; Start at 16:30 Bisacodyl (Dulcolax Supp) 10 mg DAILY PRN [place] CONSTIPATION; Start 07/11/16 at 16 :30 Heparin Sodium (Porcine) 5000 unit 5,000 unit Q12 SC Last administered on 09:31; Admin Dose 5,000 UNIT; Start 07/11/16 at 21:00 Piperacillin Sod/ Tazobactam Sod 100 ml @ 200 mls/hr Q6 IVPB Last administered on 07/14/16 12:23; Admin Dose 200 MLS/HR; Start 07/11/16 at 18:00 Vancomycin HCl/ Sodium Chloride (Vancocin/NS) 250 ml @ 83.333 mls/ hr Q12H IVPB Last administered on 07/14/16 09:52; Admin Dose 83.333 MLS/HR; Start at 20:00 Pantoprazole (Protonix Tab) 40 mg DAILY@06 PO Last administered on 07/14/16 06 :12; Admin Dose 40 MG; Start 07/14/16 at 06:00 KRISTIE ESPINAL NP Jul 14, 2016 12:35 KRISTIE ESPINAL NP Jul 14, 2016 12:35
--- NOTE | 2016-07-14 12:59 | CONS ---
Date/Time of Note Date/Time of Note DATE: 07/14/16 TIME: 12:58 Assessment/Plan Assessment/Plan Chief Complaint/Hosp Course assessment/impression - sepsis - multiple abscess of LLE s/p recent I&D - h/o myocardial infarction/VF arrest, status post CABG x4 roughly 2 weeks ago. - History of atrial fibrillation. - Chronic cardiomyopathy. - Atrial fibrillation/atrial flutter. - h/o MRSA nares. - Anemia. - Pulmonary embolism in 2009. - SBO recently. - Large basal cell carcinoma of the mid back, status post excision in 2014. recommendations: - Will narrow abx: DC Vanco and Pip/tazo. Start Levofloxacin 750 mg IV daily and Flagyl 500 mg IV q8hr. - CT of the lower extremity showed multiple abscesses. We recommend surgical consultation for more I&D. - Management d/w pt's RN and with DIRECTOR OF ACCOUNTS RECEIVABLE Juanita - Above d/w Dr. Myles Problems: Consultation Date/Type/Reason Admit Date/Time Jul 11, 2016 at 15:46 Initial Consult Date 07/12/16 Type of Consultation: Infectious Disease Referring Provider: JHONATAN BENDER 24 HR Interval Summary Free Text/Dictation Afebrile; seen by Wound nurse yesterday and awaiting iodoform to do dressing change per RN Virgilio. Denies F/C, CP, SOB, abd pain, n/v/d, dysuria. States LLE wound is "slightly tender" and still oozing serous fluid. Exam/Review of Systems Vital Signs Vitals Vital Signs Date Time Temp Pulse Resp B/P Pulse Ox O2 Delivery O2 Flow Rate FiO2 07/14/16 07:29 98.1 72 24 114/57 96 07/11/16 15:50 Room Air 07/11/16 15:48 2 Intake and Output 07/13/16 07/13/16 07/14/16 15:00 23:00 07:00 Intake Total 100 ml 1830 ml 1740 ml Output Total 900 ml 500 ml Balance 100 ml 930 ml 1240 ml Exam Constitutional: alert, obese, oriented, other (laying in bed in NAD using his laptop), well developed Psych: nl mood/affect Head: atraumatic, normocephalic Neck: supple, No jvd Respiratory: clear to auscultation, normal air movement, other (Sternum with well healed incisional scar with few scabs) Cardiovascular: irregular rhythm Gastrointestinal: non-tender, soft Neurological: nl mental status, nl speech Skin: nl turgor, other (BLE venous stasis/hyperpigmentation; well healed scar noted to mid upper back; scab noted to Right scapular area), rash or lesions ( LLE with kerlix dressing below the knee, midly stained with serous fluid) Results Result Diagram: 07/14/16 0546 07/14/16 0540 Results 24 hrs Laboratory Tests Test 07/13/16 13:00 07/13/16 13:10 07/14/16 05:40 07/14/16 05:46 Iron Level 27 L Percent Iron Saturation 11 L Total Iron Binding Capacity 247 Ferritin 443.0 H Anion Gap 14 Blood Urea Nitrogen 10 Calcium Level 8.2 L Carbon Dioxide Level 24 Chloride Level 108 Creatinine 1.04 Glucose Level 105 Potassium Level 4.0 Sodium Level 142 Basophils # 0.0 Basophils % 0.3 Eosinophils # 1.0 H Eosinophils % 15.0 H Hematocrit 31.5 L Hemoglobin 10.1 L Lymphocytes # 1.2 Lymphocytes % 18.8 Magnesium Level 1.9 Mean Corpuscular Hemoglobin 29.4 Mean Corpuscular Hemoglobin Concent 32.1 Mean Corpuscular Volume 91.6 Mean Platelet Volume 10.2 Monocytes # 0.8 Monocytes % 11.4 H Neutrophils # 3.6 Neutrophils % 54.2 Nucleated Red Blood Cells # 0.0 Nucleated Red Blood Cells % 0.0 Platelet Count 229 Red Blood Count 3.44 L Red Cell Distribution Width 14.3 White Blood Count 6.6 Medications Medications Current Medications Aspirin (Aspirin) 81 mg DAILY NGT Last administered on 07/14/16 09:09; Admin Dose 81 MG; Start 07/12/16 at 09:00 Atorvastatin Calcium (Lipitor) 80 mg HS NGT Last administered on 07/13/16 21: 03; Admin Dose 80 MG; Start 07/11/16 at 21:00 Clopidogrel Bisulfate (plaVIX) 75 mg DAILY NGT Last administered on 07/14/16 09:10; Admin Dose 75 MG; Start 07/12/16 at 09:00 Lisinopril (Zestril) 10 mg DAILY PO Last administered on 07/13/16 08:59; Admin Dose 10 MG; Start 07/12/16 at 09:00 Metoprolol Tartrate 25 mg 25 mg BID NGT Last administered on 07/13/16 21:03; Admin Dose 25 MG; Start 07/11/16 at 21:00 Sodium Chloride (NS) 1,000 ml @ 60 mls/hr [id number] IV Last administered on 07/14 00:01; Admin Dose 60 MLS/HR; Start 07/11/16 at 16:12 Ondansetron HCl (Zofran Inj) 4 mg Q6H PRN IV NAUSEA AND/OR VOMITING; Start at 16:30 Acetaminophen (Tylenol Tab) 650 mg Q6H PRN PO PAIN LEVEL 1-3 OR FEVER Last administered on 07/12/16 20:20; Admin Dose 650 MG; Start 07/11/16 at 16:30 Acetaminophen (Tylenol Supp) [address] PAIN LEVEL 1-3 OR FEVER; Start 07/11/16 at 16:30 Acetaminophen/ Hydrocodone Bitart ([place] (5/325)) 1 tab Q6H PRN PO MODERATE PAIN LEVEL 4-6; Start 07/11/16 at 16:30 Acetaminophen/ Hydrocodone Bitart ([place] (5/325)) 2 tab Q6H PRN PO SEVERE PAIN LEVEL 7-10; Start 07/11/16 at 16:30 Morphine Sulfate (morphine) 2 mg Q4H PRN IV SEVERE PAIN LEVEL 7-10; Start 07/11 at 16:30 Docusate Sodium (Colace) 100 mg Q12H PRN PO CONSTIPATION; Start 07/11/16 at 16: 30 Magnesium Hydroxide (Milk Of Mag) 30 ml DAILY PRN PO CONSTIPATION; Start at 16:30 Bisacodyl (Dulcolax Supp) [address] CONSTIPATION; Start 07/11/16 at 16 :30 Heparin Sodium (Porcine) 5000 unit 5,000 unit Q12 SC Last administered on 09:31; Admin Dose 5,000 UNIT; Start 07/11/16 at 21:00 Piperacillin Sod/ Tazobactam Sod 100 ml @ 200 mls/hr Q6 IVPB Last administered on 07/14/16 12:23; Admin Dose 200 MLS/HR; Start 3/18/17 at 18:00 Vancomycin HCl/ Sodium Chloride (Vancocin/NS) 250 ml @ 83.333 mls/ hr Q12H IVPB Last administered on 07/14/16 09:52; Admin Dose 83.333 MLS/HR; Start at 20:00 Pantoprazole (Protonix Tab) 40 mg DAILY@06 PO Last administered on 07/14/16 06 :12; Admin Dose 40 MG; Start 07/14/16 at 06:00 Miscellaneous Information (*Rx Drug Level Order Reminder*) VANCO TROUGH @ 0, 700 ON... ONCE ONCE XX ; Start 07/15/16 at 07:00; Stop 07/15/16 at 07:[address] scan LLE 07/12/16: FINDINGS: Fluid collections with contrast enhancing rims consistent with abscesses are seen in medial subcutaneous fat of the left lower extremity above the level of the knee and below the level of the knee with the largest below the level of the knee measuring approximately 4.7 x 2.2 x 7.2 cm containing foci of air and appearance of the packing material extending to the skin surface. There are 2 visualized fluid collections above the level of the knee measuring approximately 1.2 x 1 x 2.9 cm more superiorly and 1.4 x 0.9 x 3.9 cm just above the level of the knee. Soft tissue stranding in fat adjacent to the fluid collections and skin thickening is also seen. Subcutaneous edema in lower lower leg. Likely small bone islands in distal femur. There is no evidence of osteomyelitis seen. No fracture seen. IMPRESSION: Consistent with abscesses in subcutaneous fat medial left lower extremity as noted above. Please see above. PENELOPE GOMEZ NP Jul 14, 2016 12:58 PENELOPE GOMEZ NP Jul 14, 2016 12:58
[2016-07-14] MEDS: metroNIDAZOLE 500 MG/NS (PMX) 100 ML IVPB SCH ×2 (15:09→21:33)
[2016-07-14] MEDS: LEVOFLOXACIN 750MG/D5W (PMX) 150 ML IVPB SCH (16:05)
[2016-07-14 19:00] VITALS: BP 120/55; RESP 18
--- NOTE | 2016-07-14 19:15 | RADRPT ---
PROCEDURE: XR Chest. CLINICAL INDICATION: Shortness of breath. TECHNIQUE: Single frontal view. COMPARISON: 07/11/2016. FINDINGS: There is mild atelectasis at the lung bases. The lungs are otherwise clear. The heart is mildly enlarged. There are sternal wires and mediastinal clips. There is calcificatio n in the aorta consistent with atherosclerosis. There is no pleural effusion. There is no pneumothorax. IMPRESSION: 1. Mild atelectasis at the lung bases. 2. Mild cardiomegaly and atherosclerosis. 3. Previous median sternotomy. 4. Otherwise normal chest radiograph. RPTAT: QQ .Steve Lr MD, MD Date Time Electronically viewed and signed by .Steve Lr MD, MD on 07/14/2016 19:15 .R/
[2016-07-14] MEDS: ATORVASTATIN 80 MG TAB NGT SCH (20:49)
[2016-07-15] MEDS: SOD CHLORIDE 0.9% 1,000 ML IV SCH ×4 (02:35→22:15)
[2016-07-15] MEDS: metroNIDAZOLE 500 MG/NS (PMX) 100 ML IVPB SCH ×3 (05:41→22:15)
[2016-07-15] MEDS: PANTOPRAZOLE (EC) 40 MG TAB PO SCH (05:42)
[2016-07-15 06:05] LABS: ADD SCAN DIFF NO
[2016-07-15 06:08] LABS: BASOPHILS % 0.3 % (0.0-2.0); EOSINOPHILS # 0.9 10^3/ul (0.0-0.5); EOSINOPHILS % 12.8 % (0.0-7.0); HEMATOCRIT 31.5 % (42.0-52.0); HEMOGLOBIN 9.8 g/dl (14.0-18.0); LYMPHOCYTES # 1.4 10^3/ul (0.8-2.9); MEAN CORPUSCULAR HEMOGLOBIN 28.7 pg (29.0-33.0); MEAN CORPUSCULAR HGB CONC 31.1 g/dl (32.0-37.0); MEAN CORPUSCULAR VOLUME 92.4 fl (82.0-101.0); MEAN PLATELET VOLUME 10.3 fl (7.4-10.4); MONOCYTE # 0.8 10^3/ul (0.3-0.9); MONOCYTES % 11.5 % (0.0-11.0); NEUTROPHIL # 3.7 10^3/ul (1.6-7.5); NEUTROPHILS % 54.1 % (39.0-77.0); PLATELET COUNT 231 10^3/UL (140-415); RED BLOOD COUNT 3.41 10^6/ul (4.70-6.10); RED CELL DISTRIBUTION WIDTH 14.2 % (11.5-14.5); WHITE BLOOD COUNT 6.8 10^3/ul (4.8-10.8)
[2016-07-15 06:26] LABS: INR 1.16; PROTIME 14.9 Sec (12.2-14.2); PT RATIO 1.2
[2016-07-15 06:27] LABS: POTASSIUM 4.2 mmol/L (3.5-5.1)
[2016-07-15 06:28] LABS: PARTIAL THROMBOPLASTIN TIME 30.6 Sec (25.0-35.0)
[2016-07-15 06:30] LABS: ALBUMIN/GLOBULIN RATIO 0.78; BILIRUBIN,INDIRECT 0.2 mg/dl (0-1.1); BILIRUBIN,TOTAL 0.2 mg/dl (0.2-1.3); TOTAL PROTEIN 6.8 g/dl (6.1-8.1)
[2016-07-15 06:31] LABS: CALCIUM 8.3 mg/dl (8.4-10.2)
--- NOTE | 2016-07-15 06:50 | PN ---
Date/Time of Note Date/Time of Note DATE: 07/15/16 TIME: 06:48 Assessment/Plan Lines/Catheters IV [facility] Saline Lock Assessment/Plan Assessment/Plan pt seen in my office with vein harvest site cellulitis and abscess. admitted with fevers and cellulitis. had I&D in ER. cultures grew enterococcus, now on flagyl and levaquin. I expressed more pus from site. redness decreased as well as swelling, no fever ct shows seromas in thigh. no further I&D needed. continue packing and abx Exam/Review of Systems Vital Signs Vitals Vital Signs Date Time Temp Pulse Resp B/P Pulse Ox O2 Delivery O2 Flow Rate FiO2 07/14/16 19:00 98.6 68 18 120/55 98 07/11/16 15:50 Room Air 07/11/16 15:48 2 Intake and Output 07/14/16 07/14/16 07/15/16 15:00 23:00 07:00 Intake Total 2020 ml 1550 ml Output Total 975 ml 400 ml Balance 1045 ml 1150 ml Results Result Diagram: 07/15/16 0525 07/15/16 0445 TITA CIFUENTES MD Jul 15, 2016 06:50
--- NOTE | 2016-07-15 06:58 | PN ---
Date/Time of Note Date/Time of Note DATE: 07/15/16 TIME: 06:57 Assessment/Plan Lines/Catheters IV Catheter Type (from [facility]): Saline Lock Assessment/Plan Assessment/Plan doing better, WBC down to 9K. home once dialysis sorted out, hemo vs peritoneal. follow up in office after discharge. will see prn. Exam/Review of Systems Vital Signs Vitals Vital Signs Date Time Temp Pulse Resp B/P Pulse Ox O2 Delivery O2 Flow Rate FiO2 07/14/16 19:00 98.6 68 18 120/55 98 07/11/16 15:50 Room Air 07/11/16 15:48 2 Intake and Output 07/14/16 07/14/16 07/15/16 15:00 23:00 07:00 Intake Total 2020 ml 1550 ml Output Total 975 ml 400 ml Balance 1045 ml 1150 ml Results Result Diagram: 07/15/16 0525 07/15/16 0445 TITA CIFUENTES MD Jul 15, 2016 06:58
--- NOTE | 2016-07-15 07:03 | RADRPT ---
PROCEDURE: XR Chest. CLINICAL INDICATION: Shortness of breath. Preoperative evaluation prior to general anesthesia. TECHNIQUE: Portable single view of the chest COMPARISON: 07/14 FINDINGS: Cardiomegaly and median sternotomy wires again seen. Aortic calcification. No acute infiltrate, pl eural effusion, or overt congestive heart failure. Decreased bibasilar subsegmental atelectasis. IMPRESSION: Improved bibasilar aeration. Otherwise stable exam. RPTAT: HLBE Manasa Espino Physician Date Time Electronically viewed and signed by Manasa Espino Physician on 07/15/2016 07:02 LE/
--- NOTE | 2016-07-15 07:14 | PN ---
Date/Time of Note Date/Time of Note DATE: 07/15/16 TIME: 07:12 Assessment/Plan VTE Prophylaxis VTE Prophylaxis Intervention: heparin Lines/Catheters IV [facility]from [facility] [place] Assessment/Plan Chief Complaint/Hosp Course 1. Sepsis secondary to left lower extremity infected wound/abscess. Wound culture positive for Enterobacter cloacae and enterococcus species. Continue antibiotics as per infectious diseases. No evidence of any septic shock. S/P drainage by Cardiac surgeon at the bedside. 2. Infected saphenous vein graft site. Continue antibiotics as per infectious diseases. Continue wound care recommendations. 3. Recent STEMI with ventricular fibrillation cardiac arrest. Status post emergent CABG x4 on 06/16/2016. Continue cardiac medications including aspirin and Plavix. 4. Cardiomyopathy with ejection fraction of 45% as per 2-D echocardiogram on . Continue beta blockers and GREG inhibitors. 5. Coronary artery disease. Continue dual antiplatelet therapy. 6. History of atrial fibrillation. Currently in sinus rhythm. Continue beta blockers. 7. Dyslipidemia. Continue statins. 8. Normocytic, normochromic anemia. Etiology unclear, most probably anemia of chronic disease. We will monitor the H and H closely. 9. History of methamphetamine abuse. Urine drug toxicology negative. 10. Fluid, electrolytes and nutrition. Low cholesterol diet. 11. Deep vein thrombosis prophylaxis. Subcutaneous heparin. 12. Gastrointestinal prophylaxis. Proton pump inhibitors. PLAN: Continue antibiotics as per Infectious Diseases. Await clearance from consultants before discharge. The case was discussed with . Problems: Subjective 24 Hr Interval Summary Free Text/Dictation The patient remains afebrile. Exam/Review of Systems Vital Signs Vitals Vital Signs Date Time Temp Pulse Resp B/P Pulse Ox O2 Delivery O2 Flow Rate FiO2 07/14/16 19:00 98.6 68 18 120/55 98 07/11/16 15:50 Room Air 07/11/16 15:48 2 Intake and Output 07/14/16 07/14/16 07/15/16 15:00 23:00 07:00 Intake Total 2020 ml 1550 ml Output Total 975 ml 400 ml Balance 1045 ml 1150 ml Exam GENERAL: This is an obese male patient lying in bed in no apparent distress. HEENT: Head normocephalic and atraumatic. Eyes: Anicteric sclerae. Conjunctivae clear. ENT: Nasal septum is midline. Oral mucosa is dry. NECK: Supple. No JVD noticed. RESPIRATORY: Bilaterally clear to auscultation. No adventitious breath sounds. No use of accessory muscles of respiration. CARDIAC: Regular rate and rhythm. Median sternotomy scar clean, dry and intact. ABDOMEN: Soft, nontender and nondistended. Bowel sounds positive in all 4 quadrants. GENITOURINARY: Deferred. EXTREMITIES: Hyperpigmentation of bilateral lower extremities. Left lower extremity wound dressings on the posterior aspect below the knee. Peripheral pulses are palpable. NEUROLOGIC: The patient is awake, alert and oriented. Cranial nerves are grossly intact. Results Result Diagram: 07/15/16 0525 07/15/16 0445 Results 24 hrs Laboratory Tests Test 07/15/16 04:45 07/15/16 05:15 07/15/16 05:25 Alanine Aminotransferase (ALT/SGPT) 45 Albumin 3.0 L Albumin/Globulin Ratio 0.78 Alkaline Phosphatase 93 Anion Gap 16 Aspartate Amino Transf (AST/SGOT) 39 Blood Urea Nitrogen 12 Calcium Level 8.3 L Carbon Dioxide Level 25 Chloride Level 106 Creatinine 1.00 Direct Bilirubin 0.00 Globulin 3.80 H Glucose Level 97 Indirect Bilirubin 0.2 Potassium Level 4.2 Sodium Level 143 Total Bilirubin 0.2 Total Protein 6.8 Activated Partial Thromboplast Time 30.6 INR International Normalized Ratio 1.16 Magnesium Level 1.8 Prothrombin Time 14.9 H Prothrombin Time Ratio 1.2 Basophils # 0.0 Basophils % 0.3 Eosinophils # 0.9 H Eosinophils % 12.8 H Hematocrit 31.5 L Hemoglobin 9.8 L Lymphocytes # 1.4 Lymphocytes % 21.0 Mean Corpuscular Hemoglobin 28.7 L Mean Corpuscular Hemoglobin Concent 31.1 L Mean Corpuscular Volume 92.4 Mean Platelet Volume 10.3 Monocytes # 0.8 Monocytes % 11.5 H Neutrophils # 3.7 Neutrophils % 54.1 Nucleated Red Blood Cells # 0.0 Nucleated Red Blood Cells % 0.0 Platelet Count 231 Red Blood Count 3.41 L Red Cell Distribution Width 14.2 White Blood Count 6.8 Medications Medications Current Medications Aspirin (Aspirin) 81 mg DAILY NGT Last administered on 07/14/16 09:09; Admin Dose 81 MG; Start 07/12/16 at 09:00 Atorvastatin Calcium (Lipitor) 80 mg HS NGT Last administered on 07/14/16 20: 49; Admin Dose 80 MG; Start 07/11/16 at 21:00 Clopidogrel Bisulfate (plaVIX) 75 mg DAILY NGT Last administered on 07/14/16 09:10; Admin Dose 75 MG; Start 07/12/16 at 09:00 Lisinopril (Zestril) 10 mg DAILY PO Last administered on 07/13/16 08:59; Admin Dose 10 MG; Start 07/12/16 at 09:00 Metoprolol Tartrate 25 mg 25 mg BID NGT Last administered on 07/14/16 20:50; Admin Dose 25 MG; Start 07/11/16 at 21:00 Sodium Chloride (NS) 1,000 ml @ 60 mls/hr [id number] IV Last administered on 07/15 02:35; Admin Dose 60 MLS/HR; Start 07/11/16 at 16:12 Ondansetron HCl (Zofran Inj) 4 mg Q6H PRN IV NAUSEA AND/OR VOMITING; Start at 16:30 Acetaminophen (Tylenol Tab) 650 mg Q6H PRN PO PAIN LEVEL 1-3 OR FEVER Last administered on 07/12/16 20:20; Admin Dose 650 MG; Start 07/11/16 at 16:30 Acetaminophen (Tylenol Supp) 650 mg Q6H PRN [place] PAIN LEVEL 1-3 OR FEVER; Start 07/11/16 at 16:30 Acetaminophen/ Hydrocodone Bitart ([place] (5/325)) 1 tab Q6H PRN PO MODERATE PAIN LEVEL 4-6; Start 07/11/16 at 16:30 Acetaminophen/ Hydrocodone Bitart ([place] (5/325)) 2 tab Q6H PRN PO SEVERE PAIN LEVEL 7-10; Start 07/11/16 at 16:30 Morphine Sulfate (morphine) 2 mg Q4H PRN IV SEVERE PAIN LEVEL 7-10; Start 07/11 at 16:30 Docusate Sodium (Colace) 100 mg Q12H PRN PO CONSTIPATION; Start 07/11/16 at 16: 30 Magnesium Hydroxide (Milk Of Mag) 30 ml DAILY PRN PO CONSTIPATION; Start at 16:30 Bisacodyl (Dulcolax Supp) 10 mg DAILY PRN [place] CONSTIPATION; Start 07/11/16 at 16 :30 Heparin Sodium (Porcine) (Heparin (5000 Units/0.5 ml)) 5,000 unit Q12 SC Last administered on 07/14/16 21:04; Admin Dose 5,000 UNIT; Start 07/11/16 at 21:00 Pantoprazole 40 mg 40 mg DAILY@06 PO Last administered on 07/15/16 05:42; Admin Dose 40 MG; Start 07/14/16 at 06:00 Levofloxacin/ Dextrose 150 ml @ 100 mls/hr Q24H IVPB Last administered on 07/14 16:05; Admin Dose 100 MLS/HR; Start 07/14/16 at 16:00 Metronidazole (Flagyl 500 Mg (Pmx)) 100 ml @ 100 mls/hr Q8 IVPB Last administered on 07/15/16 05:41; Admin Dose 100 MLS/HR; Start 07/14/16 at 15:00 KRISTIE ESPINAL NP Jul 15, 2016 07:14 KRISTIE ESPINAL NP Jul 15, 2016 07:14
[2016-07-15 07:53] VITALS: BP 121/68; RESP 18
[2016-07-15] MEDS: ACETAMINOPHEN 325 MG TAB PO PRN (08:01)
[2016-07-15] MEDS: LISINOPRIL 10 MG TAB PO SCH (08:01)
[2016-07-15] MEDS: ASPIRIN 81 MG TAB NGT SCH (08:01)
[2016-07-15] MEDS: METOPROLOL 25 MG TAB NGT SCH ×2 (08:01→20:22)
[2016-07-15] MEDS: CLOPIDOGREL 75 MG TAB NGT SCH (08:01)
--- NOTE | 2016-07-15 08:21 | RADRPT ---
Vent Rate: 69 bpm RR Interval: 0 msec VT Interval: 170 msec QRS Duration: 94 msec QT Interval: 404 msec QTC Interval: 432 msec P-R-T [place]: 0 - 0 - 132 degrees Normal sinus rhythm Right superior axis deviation Inferior-posterior infarct , age undetermined Abnormal ECG Electronically Signed By: Terry Crespo [id number]
[2016-07-15] MEDS: HEPARIN 5,000 UNIT/0.5 ML SYG SC SCH ×2 (08:26→20:26)
[2016-07-15] MEDS: LEVOFLOXACIN 750MG/D5W (PMX) 150 ML IVPB SCH (15:45)
[2016-07-15 19:52] VITALS: BP 115/59; RESP 18
[2016-07-15] MEDS: ATORVASTATIN 80 MG TAB NGT SCH (20:22)
[2016-07-16 05:31] LABS: ADD SCAN DIFF NO
[2016-07-16] MEDS: metroNIDAZOLE 500 MG/NS (PMX) 100 ML IVPB SCH ×3 (05:47→22:01)
[2016-07-16] MEDS: PANTOPRAZOLE (EC) 40 MG TAB PO SCH (05:47)
[2016-07-16 05:48] LABS: CREATININE 0.98 mg/dl (0.61-1.24)
[2016-07-16 05:49] LABS: CALCIUM 8.3 mg/dl (8.4-10.2)
[2016-07-16 05:58] LABS: BASOPHILS % 0.3 % (0.0-2.0); EOSINOPHILS # 0.8 10^3/ul (0.0-0.5); EOSINOPHILS % 13.6 % (0.0-7.0); HEMATOCRIT 31.2 % (42.0-52.0); LYMPHOCYTES # 1.6 10^3/ul (0.8-2.9); LYMPHOCYTES % 27.3 % (15.0-51.0); MEAN CORPUSCULAR HGB CONC 32.1 g/dl (32.0-37.0); MEAN CORPUSCULAR VOLUME 90.4 fl (82.0-101.0); MEAN PLATELET VOLUME 9.9 fl (7.4-10.4); MONOCYTE # 0.7 10^3/ul (0.3-0.9); NEUTROPHIL # 2.7 10^3/ul (1.6-7.5); NEUTROPHILS % 46.5 % (39.0-77.0); PLATELET COUNT 243 10^3/UL (140-415); RED BLOOD COUNT 3.45 10^6/ul (4.70-6.10); RED CELL DISTRIBUTION WIDTH 14.1 % (11.5-14.5); WHITE BLOOD COUNT 5.8 10^3/ul (4.8-10.8)
[2016-07-16 07:18] VITALS: BP 123/59; RESP 22
[2016-07-16] MEDS: ASPIRIN 81 MG TAB NGT SCH (09:32)
[2016-07-16] MEDS: CLOPIDOGREL 75 MG TAB NGT SCH (09:32)
[2016-07-16] MEDS: LISINOPRIL 10 MG TAB PO SCH (09:33)
[2016-07-16] MEDS: METOPROLOL 25 MG TAB NGT SCH ×2 (09:34→22:01)
[2016-07-16] MEDS: HEPARIN 5,000 UNIT/0.5 ML SYG SC SCH ×2 (09:40→21:00)
--- NOTE | 2016-07-16 11:00 | PN ---
Date/Time of Note Date/Time of Note DATE: 07/16/16 TIME: 10:59 Assessment/Plan VTE Prophylaxis VTE Prophylaxis Intervention: heparin Lines/Catheters IV Catheter Type (from [facility]): Peripheral IV Assessment/Plan Chief Complaint/Hosp Course 1. Sepsis secondary to left lower extremity infected wound/abscess. Wound culture positive for Enterobacter cloacae and enterococcus species. Continue antibiotics as per infectious diseases. No evidence of any septic shock. S/P drainage by Cardiac surgeon at the bedside. 2. Infected saphenous vein graft site. Continue antibiotics as per infectious diseases. Continue wound care recommendations. 3. Recent STEMI with ventricular fibrillation cardiac arrest. Status post emergent CABG x4 on 06/16/2016. Continue cardiac medications including aspirin and Plavix. 4. Cardiomyopathy with ejection fraction of 45% as per 2-D echocardiogram on . Continue beta blockers and GREG inhibitors. 5. Coronary artery disease. Continue dual antiplatelet therapy. 6. History of atrial fibrillation. Currently in sinus rhythm. Continue beta blockers. 7. Dyslipidemia. Continue statins. 8. Normocytic, normochromic anemia. Etiology unclear, most probably anemia of chronic disease. We will monitor the H and H closely. 9. History of methamphetamine abuse. Urine drug toxicology negative. 10. Fluid, electrolytes and nutrition. Low cholesterol diet. 11. Deep vein thrombosis prophylaxis. Subcutaneous heparin. 12. Gastrointestinal prophylaxis. Proton pump inhibitors. PLAN: Continue antibiotics as per Infectious Diseases. Await clearance from consultants before discharge. The case was discussed with . Problems: Subjective 24 Hr Interval Summary Free Text/Dictation The patient remains afebrile. Exam/Review of Systems Vital Signs Vitals Vital Signs Date Time Temp Pulse Resp B/P Pulse Ox O2 Delivery O2 Flow Rate FiO2 07/16/16 07:18 98.6 59 22 123/59 96 Intake and Output 07/15/16 07/15/16 07/16/16 15:00 23:00 07:00 Intake Total 100 ml 2770 ml 1100 ml Output Total 1300 ml 1250 ml Balance 100 ml 1470 ml -150 ml Exam GENERAL: This is an obese male patient lying in bed in no apparent distress. HEENT: Head normocephalic and atraumatic. Eyes: Anicteric sclerae. Conjunctivae clear. ENT: Nasal septum is midline. Oral mucosa is dry. NECK: Supple. No JVD noticed. RESPIRATORY: Bilaterally clear to auscultation. No adventitious breath sounds. No use of accessory muscles of respiration. CARDIAC: Regular rate and rhythm. Median sternotomy scar clean, dry and intact. ABDOMEN: Soft, nontender and nondistended. Bowel sounds positive in all 4 quadrants. GENITOURINARY: Deferred. EXTREMITIES: Hyperpigmentation of bilateral lower extremities. Left lower extremity wound dressings on the posterior aspect below the knee. Peripheral pulses are palpable. NEUROLOGIC: The patient is awake, alert and oriented. Cranial nerves are grossly intact. Results Result Diagram: 07/16/1651907/16/16519 Results 24 hrs Laboratory Tests Test 07/16/16 05:20 White Blood Count 5.8 Red Blood Count 3.45 L Hemoglobin 10.0 L Hematocrit 31.2 L Mean Corpuscular Volume 90.4 Mean Corpuscular Hemoglobin 29.0 Mean Corpuscular Hemoglobin Concent 32.1 Red Cell Distribution Width 14.1 Platelet Count 243 Mean Platelet Volume 9.9 Neutrophils % 46.5 Lymphocytes % 27.3 Monocytes % 12.0 H Eosinophils % 13.6 H Basophils % 0.3 Nucleated Red Blood Cells % 0.0 Neutrophils # 2.7 Lymphocytes # 1.6 Monocytes # 0.7 Eosinophils # 0.8 H Basophils # 0.0 Nucleated Red Blood Cells # 0.0 Sodium Level 142 Potassium Level 4.0 Chloride Level 108 Carbon Dioxide Level 24 Anion Gap 14 Blood Urea Nitrogen 12 Creatinine 0.98 Glucose Level 101 Calcium Level 8.3 L Magnesium Level 1.8 Medications Medications Current Medications Aspirin (Aspirin) 81 mg DAILY NGT Last administered on 07/16/16 09:32; Admin Dose 81 MG; Start 07/12/16 at 09:00 Atorvastatin Calcium (Lipitor) 80 mg HS NGT Last administered on 07/15/16 20: 22; Admin Dose 80 MG; Start 07/11/16 at 21:00 Clopidogrel Bisulfate (plaVIX) 75 mg DAILY NGT Last administered on 07/16/16 09:32; Admin Dose 75 MG; Start 07/12/16 at 09:00 Lisinopril (Zestril) 10 mg DAILY PO Last administered on 07/16/16 09:33; Admin Dose 10 MG; Start 07/12/16 at 09:00 Metoprolol Tartrate 25 mg 25 mg BID NGT Last administered on 07/16/16 09:34; Admin Dose 25 MG; Start 07/11/16 at 21:00 Sodium Chloride (NS) 1,000 ml @ 60 mls/hr [id number] IV Last administered on 07/15 22:15; Admin Dose 60 MLS/HR; Start 07/11/16 at 16:12 Ondansetron HCl (Zofran Inj) 4 mg Q6H PRN IV NAUSEA AND/OR VOMITING; Start at 16:30 Acetaminophen (Tylenol Tab) 650 mg Q6H PRN PO PAIN LEVEL 1-3 OR FEVER Last administered on 07/15/16 08:01; Admin Dose 650 MG; Start 07/11/16 at 16:30 Acetaminophen (Tylenol Supp) 650 mg Q6H PRN [place] PAIN LEVEL 1-3 OR FEVER; Start 07/11/16 at 16:30 Acetaminophen/ Hydrocodone Bitart ([place] (5/325)) 1 tab Q6H PRN PO MODERATE PAIN LEVEL 4-6; Start 07/11/16 at 16:30 Acetaminophen/ Hydrocodone Bitart ([place] (5/325)) 2 tab Q6H PRN PO SEVERE PAIN LEVEL 7-10; Start 07/11/16 at 16:30 Morphine Sulfate (morphine) 2 mg Q4H PRN IV SEVERE PAIN LEVEL 7-10; Start 07/11 at 16:30 Docusate Sodium (Colace) 100 mg Q12H PRN PO CONSTIPATION; Start 07/11/16 at 16: 30 Magnesium Hydroxide (Milk Of Mag) 30 ml DAILY PRN PO CONSTIPATION; Start at 16:30 Bisacodyl (Dulcolax Supp) 10 mg DAILY PRN [place] CONSTIPATION; Start 07/11/16 at 16 :30 Heparin Sodium (Porcine) (Heparin (5000 Units/0.5 ml)) 5,000 unit Q12 SC Last administered on 07/16/16 09:40; Admin Dose 5,000 UNIT; Start 07/11/16 at 21:00 Pantoprazole 40 mg 40 mg DAILY@06 PO Last administered on 07/16/16 05:47; Admin Dose 40 MG; Start 07/14/16 at 06:00 Levofloxacin/ Dextrose 150 ml @ 100 mls/hr Q24H IVPB Last administered on 07/15 15:45; Admin Dose 100 MLS/HR; Start 07/14/16 at 16:00 Metronidazole (Flagyl 500 Mg (Pmx)) 100 ml @ 100 mls/hr Q8 IVPB Last administered on 07/16/16 05:47; Admin Dose 100 MLS/HR; Start 07/14/16 at 15:00 KRISTIE ESPINAL NP Jul 16, 2016 11:00 KRISTIE ESPINAL NP Jul 16, 2016 11:00
[2016-07-16] MEDS: SOD CHLORIDE 0.9% 1,000 ML IV SCH (12:52)
--- NOTE | 2016-07-16 14:13 | CONS ---
Date/Time of Note Date/Time of Note DATE: 07/16/16 TIME: 14:13 Assessment/Plan Assessment/Plan Chief Complaint/Hosp Course assessment/impression - sepsis - multiple abscess of LLE s/p recent I&D; s/p bedside drainage of seromas by CTS 07/15/16 - h/o myocardial infarction/VF arrest, status post CABG x4 roughly 2 weeks ago. - History of atrial fibrillation. - Chronic cardiomyopathy. - Atrial fibrillation/atrial flutter. - h/o MRSA nares. - Anemia. - Pulmonary embolism in 2009. - SBO recently. - Large basal cell carcinoma of the mid back, status post excision in 2014. recommendations: - Continue Levofloxacin 750 mg IV daily and Flagyl 500 mg IV q8hr (07/14/16) and Vanco; S/p Pip/tazo. - Continue local wound care - Management d/w pt's RN - Above d/w Dr. Myles Problems: Consultation Date/Type/Reason Admit Date/Time Jul 11, 2016 at 15:46 Initial Consult Date 07/12/16 Type of Consultation: Infectious Disease Referring Provider: JHONATAN BENDER 24 HR Interval Summary Free Text/Dictation Remains afebrile and clinically unchanged per NISHI Knox. LLE wound is "slightly tender" and still draining fluid. Denies F/C, CP, SOB, abd pain, n/v/d, dysuria. Exam/Review of Systems Vital Signs Vitals Vital Signs Date Time Temp Pulse Resp B/P Pulse Ox O2 Delivery O2 Flow Rate FiO2 07/16/16 07:18 98.6 59 22 123/59 96 Intake and Output 07/15/16 07/15/16 07/16/16 15:00 23:00 07:00 Intake Total 100 ml 2770 ml 1100 ml Output Total 1300 ml 1250 ml Balance 100 ml 1470 ml -150 ml Exam Constitutional: alert, obese, oriented, other (laying in bed in NAD using his laptop), well developed Psych: nl mood/affect Head: atraumatic, normocephalic Neck: supple, No jvd Respiratory: clear to auscultation, normal air movement, other (Sternum with well healed incisional scar with few scabs) Cardiovascular: irregular rhythm Gastrointestinal: non-tender, soft Neurological: nl mental status, nl speech Skin: nl turgor, other (BLE venous stasis/hyperpigmentation; well healed scar noted to mid upper back; scab noted to Right scapular area), rash or lesions ( LLE with kerlix dressing below the knee, stained with serous fluid) Results Result Diagram: 07/16/1620 07/16/16 0520 Results 24 hrs Laboratory Tests Test 07/16/16 05:20 White Blood Count 5.8 Red Blood Count 3.45 L Hemoglobin 10.0 L Hematocrit 31.2 L Mean Corpuscular Volume 90.4 Mean Corpuscular Hemoglobin 29.0 Mean Corpuscular Hemoglobin Concent 32.1 Red Cell Distribution Width 14.1 Platelet Count 243 Mean Platelet Volume 9.9 Neutrophils % 46.5 Lymphocytes % 27.3 Monocytes % 12.0 H Eosinophils % 13.6 H Basophils % 0.3 Nucleated Red Blood Cells % 0.0 Neutrophils # 2.7 Lymphocytes # 1.6 Monocytes # 0.7 Eosinophils # 0.8 H Basophils # 0.0 Nucleated Red Blood Cells # 0.0 Sodium Level 142 Potassium Level 4.0 Chloride Level 108 Carbon Dioxide Level 24 Anion Gap 14 Blood Urea Nitrogen 12 Creatinine 0.98 Glucose Level 101 Calcium Level 8.3 L Magnesium Level 1.8 Medications Medications Current Medications Aspirin (Aspirin) 81 mg DAILY NGT Last administered on 07/16/16 09:32; Admin Dose 81 MG; Start 07/12/16 at 09:00 Atorvastatin Calcium (Lipitor) 80 mg HS NGT Last administered on 07/15/16 20: 22; Admin Dose 80 MG; Start 07/11/16 at 21:00 Clopidogrel Bisulfate (plaVIX) 75 mg DAILY NGT Last administered on 07/16/16 09:32; Admin Dose 75 MG; Start 07/12/16 at 09:00 Lisinopril (Zestril) 10 mg DAILY PO Last administered on 07/16/16 09:33; Admin Dose 10 MG; Start 07/12/16 at 09:00 Metoprolol Tartrate 25 mg 25 mg BID NGT Last administered on 07/16/16 09:34; Admin Dose 25 MG; Start 07/11/16 at 21:00 Sodium Chloride (NS) 1,000 ml @ 60 mls/hr [id number] IV Last administered on 07/15 22:15; Admin Dose 60 MLS/HR; Start 07/11/16 at 16:12 Ondansetron HCl (Zofran Inj) 4 mg Q6H PRN IV NAUSEA AND/OR VOMITING; Start at 16:30 Acetaminophen (Tylenol Tab) 650 mg Q6H PRN PO PAIN LEVEL 1-3 OR FEVER Last administered on 07/15/16 08:01; Admin Dose 650 MG; Start 07/11/16 at 16:30 Acetaminophen (Tylenol Supp) 650 mg Q6H PRN [place] PAIN LEVEL 1-3 OR FEVER; Start 07/11/16 at 16:30 Acetaminophen/ Hydrocodone Bitart ([place] (5/325)) 1 tab Q6H PRN PO MODERATE PAIN LEVEL 4-6; Start 07/11/16 at 16:30 Acetaminophen/ Hydrocodone Bitart ([place] (5/325)) 2 tab Q6H PRN PO SEVERE PAIN LEVEL 7-10; Start 07/11/16 at 16:30 Morphine Sulfate (morphine) 2 mg Q4H PRN IV SEVERE PAIN LEVEL 7-10; Start 07/11 at 16:30 Docusate Sodium (Colace) 100 mg Q12H PRN PO CONSTIPATION; Start 07/11/16 at 16: 30 Magnesium Hydroxide (Milk Of Mag) 30 ml DAILY PRN PO CONSTIPATION; Start at 16:30 Bisacodyl (Dulcolax Supp) 10 mg DAILY PRN [place] CONSTIPATION; Start 07/11/16 at 16 :30 Heparin Sodium (Porcine) (Heparin (5000 Units/0.5 ml)) 5,000 unit Q12 SC Last administered on 07/16/16 09:40; Admin Dose 5,000 UNIT; Start 07/11/16 at 21:00 Pantoprazole 40 mg 40 mg DAILY@06 PO Last administered on 07/16/16 05:47; Admin Dose 40 MG; Start 07/14/16 at 06:00 Levofloxacin/ Dextrose 150 ml @ 100 mls/hr Q24H IVPB Last administered on 07/15 15:45; Admin Dose 100 MLS/HR; Start 07/14/16 at 16:00 Metronidazole (Flagyl 500 Mg (Pmx)) 100 ml @ 100 mls/hr Q8 IVPB Last administered on 3/23/17at 13:21; Admin Dose 100 MLS/HR; Start 07/14/16 at 15:00 Procedures Procedures CXR 07/15/16: FINDINGS: Cardiomegaly and median sternotomy wires again seen. Aortic calcification. No acute infiltrate, pleural effusion, or overt congestive heart failure. Decreased bibasilar subsegmental atelectasis. IMPRESSION: Improved bibasilar aeration. Otherwise stable exam. CT LLE 07/12/16: FINDINGS: Fluid collections with contrast enhancing rims consistent with abscesses are seen in medial subcutaneous fat of the left lower extremity above the level of the knee and below the level of the knee with the largest below the level of the knee measuring approximately 4.7 x 2.2 x 7.2 cm containing foci of air and appearance of the packing material extending to the skin surface. There are 2 visualized fluid collections above the level of the knee measuring approximately 1.2 x 1 x 2.9 cm more superiorly and 1.4 x 0.9 x 3.9 cm just above the level of the knee. Soft tissue stranding in fat adjacent to the fluid collections and skin thickening is also seen. Subcutaneous edema in lower lower leg. Likely small bone islands in distal femur. There is no evidence of osteomyelitis seen. No fracture seen. IMPRESSION: Consistent with abscesses in subcutaneous fat medial left lower extremity as noted above. Please see above. PENELOPE GOMEZ NP Jul 16, 2016 14:13
[2016-07-16] MEDS: LEVOFLOXACIN 750MG/D5W (PMX) 150 ML IVPB SCH (15:19)
[2016-07-16] MEDS ORDERED: VANCOMYCIN IV PER PHARMACY XX SCH (16:30)
[2016-07-16] MEDS ORDERED: VANCOMYCIN 2 GM in SOD CHLORIDE 0.9% 500 ML IVPB SCH (18:00)
[2016-07-16 20:52] VITALS: BP 122/64; RESP 20
[2016-07-16] MEDS: ATORVASTATIN 80 MG TAB NGT SCH (22:01)
[2016-07-17] MEDS: SOD CHLORIDE 0.9% 1,000 ML IV SCH ×2 (05:03→22:12)
[2016-07-17] MEDS: metroNIDAZOLE 500 MG/NS (PMX) 100 ML IVPB SCH ×3 (05:03→21:38)
[2016-07-17] MEDS: PANTOPRAZOLE (EC) 40 MG TAB PO SCH (05:03)
[2016-07-17] MEDS: VANCOMYCIN 1.5 GM in SOD CHLORIDE 0.9% 250 ML IVPB SCH ×2 (06:09→17:54)
[2016-07-17 07:34] VITALS: BP 130/68; RESP 16
[2016-07-17] MEDS: ASPIRIN 81 MG TAB NGT SCH (09:34)
[2016-07-17] MEDS: CLOPIDOGREL 75 MG TAB NGT SCH (09:35)
[2016-07-17] MEDS: LISINOPRIL 10 MG TAB PO SCH (09:35)
[2016-07-17] MEDS: METOPROLOL 25 MG TAB NGT SCH ×2 (09:35→21:37)
[2016-07-17] MEDS: HEPARIN 5,000 UNIT/0.5 ML SYG SC SCH ×2 (09:37→21:45)
--- NOTE | 2016-07-17 09:47 | PN ---
Date/Time of Note Date/Time of Note DATE: 07/17/16 TIME: 09:45 Assessment/Plan VTE Prophylaxis VTE Prophylaxis Intervention: heparin Lines/Catheters IV Catheter Type (from [facility]): Peripheral IV Assessment/Plan Chief Complaint/Hosp Course 1. Sepsis secondary to left lower extremity infected wound/abscess. Wound culture positive for Enterobacter cloacae and enterococcus species. Continue antibiotics as per infectious diseases. No evidence of any septic shock. S/P drainage by Cardiac surgeon at the bedside. 2. Infected saphenous vein graft site. Continue antibiotics as per infectious diseases. Continue wound care recommendations. 3. Recent STEMI with ventricular fibrillation cardiac arrest. Status post emergent CABG x4 on 06/16/2016. Continue cardiac medications including aspirin and Plavix. 4. Cardiomyopathy with ejection fraction of 45% as per 2-D echocardiogram on . Continue beta blockers and GREG inhibitors. 5. Coronary artery disease. Continue dual antiplatelet therapy. 6. History of atrial fibrillation. Currently in sinus rhythm. Continue beta blockers. 7. Dyslipidemia. Continue statins. 8. Normocytic, normochromic anemia. Etiology unclear, most probably anemia of chronic disease. We will monitor the H and H closely. 9. History of methamphetamine abuse. Urine drug toxicology negative. 10. Fluid, electrolytes and nutrition. Low cholesterol diet. 11. Deep vein thrombosis prophylaxis. Subcutaneous heparin. 12. Gastrointestinal prophylaxis. Proton pump inhibitors. PLAN: Continue antibiotics as per Infectious Diseases. Await clearance from consultants before discharge. The case was discussed with . Problems: Subjective 24 Hr Interval Summary Free Text/Dictation The patient remains afebrile. Vital signs stable. Exam/Review of Systems Vital Signs Vitals Vital Signs Date Time Temp Pulse Resp B/P Pulse Ox O2 Delivery O2 Flow Rate FiO2 07/17/16 07:34 98.9 68 16 130/68 97 Intake and Output 07/16/16 07/16/16 07/17/16 15:00 23:00 07:00 Intake Total 2830 ml 800 ml Output Total 1000 ml Balance 1830 ml 800 ml Exam GENERAL: This is an obese male patient lying in bed in no apparent distress. HEENT: Head normocephalic and atraumatic. Eyes: Anicteric sclerae. Conjunctivae clear. ENT: Nasal septum is midline. Oral mucosa is dry. NECK: Supple. No JVD noticed. RESPIRATORY: Bilaterally clear to auscultation. No adventitious breath sounds. No use of accessory muscles of respiration. CARDIAC: Regular rate and rhythm. Median sternotomy scar clean, dry and intact. ABDOMEN: Soft, nontender and nondistended. Bowel sounds positive in all 4 quadrants. GENITOURINARY: Deferred. EXTREMITIES: Hyperpigmentation of bilateral lower extremities. Left lower extremity wound dressings on the posterior aspect below the knee. Peripheral pulses are palpable. NEUROLOGIC: The patient is awake, alert and oriented. Cranial nerves are grossly intact. Results Result Diagram: 07/16/1651907/16/16519 Medications Medications Current Medications Aspirin (Aspirin) 81 mg DAILY NGT Last administered on 07/17/16 09:34; Admin Dose 81 MG; Start 07/12/16 at 09:00 Atorvastatin Calcium (Lipitor) 80 mg HS NGT Last administered on 07/16/16 22: 01; Admin Dose 80 MG; Start 07/11/16 at 21:00 Clopidogrel Bisulfate (plaVIX) 75 mg DAILY NGT Last administered on 07/17/16 09:35; Admin Dose 75 MG; Start 07/12/16 at 09:00 Lisinopril (Zestril) 10 mg DAILY PO Last administered on 07/17/16 09:35; Admin Dose 10 MG; Start 07/12/16 at 09:00 Metoprolol Tartrate 25 mg 25 mg BID NGT Last administered on 07/17/16 09:35; Admin Dose 25 MG; Start 07/11/16 at 21:00 Sodium Chloride (NS) 1,000 ml @ 60 mls/hr [id number] IV Last administered on 07/17 05:03; Admin Dose 60 MLS/HR; Start 07/11/16 at 16:12 Ondansetron HCl (Zofran Inj) 4 mg Q6H PRN IV NAUSEA AND/OR VOMITING; Start at 16:30 Acetaminophen (Tylenol Tab) 650 mg Q6H PRN PO PAIN LEVEL 1-3 OR FEVER Last administered on 07/15/16 08:01; Admin Dose 650 MG; Start 07/11/16 at 16:30 Acetaminophen (Tylenol Supp) 650 mg Q6H PRN [place] PAIN LEVEL 1-3 OR FEVER; Start 07/11/16 at 16:30 Acetaminophen/ Hydrocodone Bitart ([place] (5/325)) 1 tab Q6H PRN PO MODERATE PAIN LEVEL 4-6; Start 07/11/16 at 16:30 Acetaminophen/ Hydrocodone Bitart ([place] (5/325)) 2 tab Q6H PRN PO SEVERE PAIN LEVEL 7-10; Start 07/11/16 at 16:30 Morphine Sulfate (morphine) 2 mg Q4H PRN IV SEVERE PAIN LEVEL 7-10; Start 07/11 at 16:30 Docusate Sodium (Colace) 100 mg Q12H PRN PO CONSTIPATION; Start 07/11/16 at 16: 30 Magnesium Hydroxide (Milk Of Mag) 30 ml DAILY PRN PO CONSTIPATION; Start at 16:30 Bisacodyl (Dulcolax Supp) 10 mg DAILY PRN [place] CONSTIPATION; Start 07/11/16 at 16 :30 Heparin Sodium (Porcine) (Heparin (5000 Units/0.5 ml)) 5,000 unit Q12 SC Last administered on 07/17/16 09:37; Admin Dose 5,000 UNIT; Start 07/11/16 at 21:00 Pantoprazole 40 mg 40 mg DAILY@06 PO Last administered on 07/17/16 05:03; Admin Dose 40 MG; Start 07/14/16 at 06:00 Levofloxacin/ Dextrose 150 ml @ 100 mls/hr Q24H IVPB Last administered on 07/16 15:19; Admin Dose 100 MLS/HR; Start 07/14/16 at 16:00 Metronidazole 100 ml @ 100 mls/hr Q8 IVPB Last administered on 07/17/16 05:03 ; Admin Dose 100 MLS/HR; Start 07/14/16 at 15:00 Vancomycin HCl/ Sodium Chloride (Vancocin/NS) 250 ml @ 83.333 mls/ hr Q12H IVPB Last administered on 07/17/16 06:09; Admin Dose 83.333 MLS/HR; Start at 06:00 KRISTIE ESPINAL NP Jul 17, 2016 09:46
--- NOTE | 2016-07-17 16:22 | CONS ---
Date/Time of Note Date/Time of Note DATE: 07/17/16 TIME: 16:21 Assessment/Plan Assessment/Plan Chief Complaint/Hosp Course - sepsis - multiple abscess of LLE s/p recent I&D; s/p bedside drainage of seromas by CTS 07/15/16 - h/o myocardial infarction/VF arrest, status post CABG x4 roughly 2 weeks ago. - History of atrial fibrillation. - Chronic cardiomyopathy. - Atrial fibrillation/atrial flutter. - h/o MRSA nares. - Anemia. - Pulmonary embolism in 2009. - SBO recently. - Large basal cell carcinoma of the mid back, status post excision in 2014. recommendations: - Continue Levofloxacin 750 mg IV daily and Flagyl 500 mg IV q8hr (07/14/16) and Vanco; S/p Pip/tazo. - Continue local wound care Problems: Consultation Date/Type/Reason Admit Date/Time Jul 11, 2016 at 15:46 Initial Consult Date 07/12/16 Type of Consultation: Infectious Disease Referring Provider: JHONATAN BENDER 24 HR Interval Summary Free Text/Dictation continues to feel better daily. no major complaints. Exam/Review of Systems Vital Signs Vitals Vital Signs Date Time Temp Pulse Resp B/P Pulse Ox O2 Delivery O2 Flow Rate FiO2 07/17/16 07:34 98.9 68 16 130/68 97 Intake and Output 07/16/16 07/16/16 07/17/16 15:00 23:00 07:00 Intake Total 2830 ml 800 ml Output Total 1000 ml Balance 1830 ml 800 ml Exam Constitutional: alert, oriented, well developed Psych: nl mood/affect, no complaints Head: atraumatic, normocephalic ENMT: nl external ears & nose, nl lips & teeth, nl nasal mucosa & septum Respiratory: clear to auscultation, normal air movement Cardiovascular: nl pulses, regular rate and rhythm Gastrointestinal: nl liver, spleen, non-tender, soft Results Result Diagram: 07/16/1651907/16/16519 Medications Medications Current Medications Aspirin (Aspirin) 81 mg DAILY NGT Last administered on 07/17/16 09:34; Admin Dose 81 MG; Start 07/12/16 at 09:00 Atorvastatin Calcium (Lipitor) 80 mg HS NGT Last administered on 07/16/16 22: 01; Admin Dose 80 MG; Start 07/11/16 at 21:00 Clopidogrel Bisulfate (plaVIX) 75 mg DAILY NGT Last administered on 07/17/16 09:35; Admin Dose 75 MG; Start 07/12/16 at 09:00 Lisinopril (Zestril) 10 mg DAILY PO Last administered on 07/17/16 09:35; Admin Dose 10 MG; Start 07/12/16 at 09:00 Metoprolol Tartrate 25 mg 25 mg BID NGT Last administered on 07/17/16 09:35; Admin Dose 25 MG; Start 07/11/16 at 21:00 Sodium Chloride (NS) 1,000 ml @ 60 mls/hr [id number] IV Last administered on 07/17 05:03; Admin Dose 60 MLS/HR; Start 07/11/16 at 16:12 Ondansetron HCl (Zofran Inj) 4 mg Q6H PRN IV NAUSEA AND/OR VOMITING; Start at 16:30 Acetaminophen (Tylenol Tab) 650 mg Q6H PRN [place] PAIN LEVEL 1-3 OR FEVER Last administered on 07/15/16 08:01; Admin Dose 650 MG; Start 07/11/16 at 16:30 Acetaminophen (Tylenol Supp) [address] PAIN LEVEL 1-3 OR FEVER; Start 07/11/16 at 16:30 Acetaminophen/ Hydrocodone Bitart ([place] (5/325)) 1 tab Q6H PRN PO MODERATE PAIN LEVEL 4-6; Start 07/11/16 at 16:30 Acetaminophen/ Hydrocodone Bitart ([place] (5/325)) 2 tab Q6H PRN PO SEVERE PAIN LEVEL 7-10; Start 07/11/16 at 16:30 Morphine Sulfate (morphine) 2 mg Q4H PRN IV SEVERE PAIN LEVEL 7-10; Start 07/11 at 16:30 Docusate Sodium (Colace) 100 mg Q12H PRN PO CONSTIPATION; Start 07/11/16 at 16: 30 Magnesium Hydroxide (Milk Of Mag) 30 ml DAILY PRN PO CONSTIPATION; Start at 16:30 Bisacodyl (Dulcolax Supp) [address] CONSTIPATION; Start 07/11/16 at 16 :30 Heparin Sodium (Porcine) (Heparin (5000 Units/0.5 ml)) 5,000 unit Q12 SC Last administered on 07/17/16 09:37; Admin Dose 5,000 UNIT; Start 07/11/16 at 21:00 Pantoprazole 40 mg 40 mg DAILY@06 PO Last administered on 07/17/16 05:03; Admin Dose 40 MG; Start 07/14/16 at 06:00 Levofloxacin/ Dextrose 150 ml @ 100 mls/hr Q24H IVPB Last administered on 07/16 15:19; Admin Dose 100 MLS/HR; Start 07/14/16 at 16:00 Metronidazole 100 ml @ 100 mls/hr Q8 IVPB Last administered on 07/17/16 14:16 ; Admin Dose 100 MLS/HR; Start 07/14/16 at 15:00 Vancomycin HCl/ Sodium Chloride (Vancocin/NS) 250 ml @ 83.333 mls/ hr Q12H IVPB Last administered on 07/17/16 06:09; Admin Dose 83.333 MLS/HR; Start at 06:00 Miscellaneous Information (*Rx Drug Level Order Reminder*) 1 ONCE ONCE XX ; Start 07/18/16 at 05:00; Stop 07/18/16 at 05:01 GÉNESIS HARRIS MD Jul 17, 2016 16:22
[2016-07-17] MEDS: LEVOFLOXACIN 750MG/D5W (PMX) 150 ML IVPB SCH (16:37)
[2016-07-17 21:11] VITALS: BP 133/79; RESP 18
[2016-07-17 21:17] LABS: BARBITURATES Negative (NEGATIVE); BENZODIAZEPINES Negative (NEGATIVE); CANNABINOIDS Negative (NEGATIVE); COCAINE Negative (NEGATIVE); OPIATES Negative (NEGATIVE)
[2016-07-17] MEDS: ATORVASTATIN 80 MG TAB NGT SCH (21:37)
[2016-07-18] MEDS: metroNIDAZOLE 500 MG/NS (PMX) 100 ML IVPB SCH ×3 (06:16→21:47)
[2016-07-18] MEDS: PANTOPRAZOLE (EC) 40 MG TAB PO SCH (06:16)
[2016-07-18 06:30] LABS: CREATININE 1.01 mg/dl (0.61-1.24)
--- NOTE | 2016-07-18 07:16 | CONS ---
Date/Time of Note Date/Time of Note DATE: 07/18/16 TIME: 07:15 Assessment/Plan Assessment/Plan Chief Complaint/Hosp Course - sepsis - multiple abscess of LLE s/p recent I&D; s/p bedside drainage of seromas by CTS 07/15/16 - h/o myocardial infarction/VF arrest, status post CABG x4 roughly 2 weeks ago. - History of atrial fibrillation. - Chronic cardiomyopathy. - Atrial fibrillation/atrial flutter. - h/o MRSA nares. - Anemia. - Pulmonary embolism in 2009. - SBO recently. - Large basal cell carcinoma of the mid back, status post excision in 2014. recommendations: - Continue Levofloxacin 750 mg IV daily and Flagyl 500 mg IV q8hr (07/14/16) and Vanco; S/p Pip/tazo. - Continue local wound care Problems: Consultation Date/Type/Reason Admit Date/Time Jul 11, 2016 at 15:46 Initial Consult Date 07/12/16 Type of Consultation: Infectious Disease Referring Provider: JHONATAN BENDER Exam/Review of Systems Vital Signs Vitals Vital Signs Date Time Temp Pulse Resp B/P Pulse Ox O2 Delivery O2 Flow Rate FiO2 07/17/16 21:11 98.6 67 18 133/79 99 Intake and Output 07/17/16 07/17/16 07/18/16 15:00 23:00 07:00 Intake Total 750 ml 1870 ml 1620 ml Output Total 800 ml 1600 ml 600 ml Balance -50 ml 270 ml 1020 ml Results Result Diagram: 07/16/16 0520 07/18/16 0512 Results 24 hrs Laboratory Tests Test 07/17/16 18:00 07/18/16 05:12 Urine Opiates Screen Negative Urine Barbiturates Negative Urine Amphetamines Screen Negative Urine Benzodiazepines Screen Negative Urine Cocaine Screen Negative Urine Cannabinoids Negative Blood Urea Nitrogen 16 Creatinine 1.01 Vancomycin Level Trough 15.0 Medications Medications Current Medications Aspirin (Aspirin) 81 mg DAILY NGT Last administered on 07/17/16 09:34; Admin Dose 81 MG; Start 07/12/16 at 09:00 Atorvastatin Calcium (Lipitor) 80 mg HS NGT Last administered on 07/17/16 21: 37; Admin Dose 80 MG; Start 07/11/16 at 21:00 Clopidogrel Bisulfate (plaVIX) 75 mg DAILY NGT Last administered on 07/17/16 09:35; Admin Dose 75 MG; Start 07/12/16 at 09:00 Lisinopril (Zestril) 10 mg DAILY PO Last administered on 07/17/16 09:35; Admin Dose 10 MG; Start 07/12/16 at 09:00 Metoprolol Tartrate 25 mg 25 mg BID NGT Last administered on 07/17/16 21:37; Admin Dose 25 MG; Start 07/11/16 at 21:00 Sodium Chloride (NS) 1,000 ml @ 60 mls/hr [id number] IV Last administered on 07/17 05:03; Admin Dose 60 MLS/HR; Start 07/11/16 at 16:12 Ondansetron HCl (Zofran Inj) 4 mg Q6H PRN IV NAUSEA AND/OR VOMITING; Start at 16:30 Acetaminophen (Tylenol Tab) 650 mg Q6H PRN PO PAIN LEVEL 1-3 OR FEVER Last administered on 07/15/16 08:01; Admin Dose 650 MG; Start 07/11/16 at 16:30 Acetaminophen (Tylenol Supp) 650 mg Q6H PRN [place] PAIN LEVEL 1-3 OR FEVER; Start 07/11/16 at 16:30 Acetaminophen/ Hydrocodone Bitart ([place] (5/325)) 1 tab Q6H PRN PO MODERATE PAIN LEVEL 4-6; Start 07/11/16 at 16:30 Acetaminophen/ Hydrocodone Bitart ([place] (5/325)) 2 tab Q6H PRN PO SEVERE PAIN LEVEL 7-10; Start 07/11/16 at 16:30 Morphine Sulfate (morphine) 2 mg Q4H PRN IV SEVERE PAIN LEVEL 7-10; Start 07/11 at 16:30 Docusate Sodium (Colace) 100 mg Q12H PRN PO CONSTIPATION; Start 07/11/16 at 16: 30 Magnesium Hydroxide (Milk Of Mag) 30 ml DAILY PRN PO CONSTIPATION; Start at 16:30 Bisacodyl (Dulcolax Supp) 10 mg DAILY PRN [place] CONSTIPATION; Start 07/11/16 at 16 :30 Heparin Sodium (Porcine) (Heparin (5000 Units/0.5 ml)) 5,000 unit Q12 SC Last administered on 07/17/16 21:45; Admin Dose 5,000 UNIT; Start 07/11/16 at 21:00 Pantoprazole 40 mg 40 mg DAILY@06 PO Last administered on 07/18/16 06:16; Admin Dose 40 MG; Start 07/14/16 at 06:00 Levofloxacin/ Dextrose 150 ml @ 100 mls/hr Q24H IVPB Last administered on 07/17 16:37; Admin Dose 100 MLS/HR; Start 07/14/16 at 16:00 Metronidazole 100 ml @ 100 mls/hr Q8 IVPB Last administered on 07/18/16 06:16 ; Admin Dose 100 MLS/HR; Start 07/14/16 at 15:00 Vancomycin HCl/ Sodium Chloride (Vancocin/NS) 250 ml @ 83.333 mls/ hr Q12H IVPB Last administered on 07/17/16 17:54; Admin Dose 83.333 MLS/HR; Start at 06:00 GÉNESIS HARRIS MD Jul 18, 2016 07:15
[2016-07-18] MEDS: VANCOMYCIN 1.5 GM in SOD CHLORIDE 0.9% 250 ML IVPB SCH ×2 (07:22→18:11)
[2016-07-18 07:55] VITALS: BP 125/61; RESP 18
--- NOTE | 2016-07-18 09:07 | PN ---
Date/Time of Note Date/Time of Note DATE: 07/18/16 TIME: 09:05 Assessment/Plan VTE Prophylaxis VTE Prophylaxis Intervention: heparin Lines/Catheters IV Catheter Type (from [facility]): Peripheral IV Assessment/Plan Chief Complaint/Hosp Course 1. Sepsis secondary to left lower extremity infected wound/abscess. Wound culture positive for Enterobacter cloacaae and enterococcus species. Continue antibiotics as per infectious diseases. No evidence of any septic shock. 2. Infected saphenous vein graft site. Continue antibiotics as per infectious diseases. Continue wound care recommendations. 3. Recent STEMI with ventricular fibrillation cardiac arrest. Status post emergent CABG x4 on 06/16/2016. Continue cardiac medications including aspirin and Plavix. 4. Cardiomyopathy with ejection fraction of 45% as per 2-D echocardiogram on . Continue beta blockers and GREG inhibitors. 5. Coronary artery disease. Continue dual antiplatelet therapy. 6. History of atrial fibrillation. Currently in sinus rhythm. Continue beta blockers. 7. Dyslipidemia. Continue statins. 8. Normocytic, normochromic anemia. Etiology unclear, most probably anemia of chronic disease. We will monitor the H and H closely. 9. History of methamphetamine abuse. Urine drug toxicology negative. 10. Fluid, electrolytes and nutrition. Low cholesterol diet. 11. Deep vein thrombosis prophylaxis. Subcutaneous heparin. 12. Gastrointestinal prophylaxis. Proton pump inhibitors. PLAN: Continue antibiotics as per Infectious Diseases. Await clearance from infectious diseases before discharge. The case was discussed with . Problems: Subjective 24 Hr Interval Summary Free Text/Dictation The patient remains afebrile. Exam/Review of Systems Vital Signs Vitals Vital Signs Date Time Temp Pulse Resp B/P Pulse Ox O2 Delivery O2 Flow Rate FiO2 07/18/16 07:55 97.6 60 18 125/61 97 Intake and Output 07/17/16 07/17/16 07/18/16 15:00 23:00 07:00 Intake Total 750 ml 1870 ml 1620 ml Output Total 800 ml 1600 ml 600 ml Balance -50 ml 270 ml 1020 ml Exam GENERAL: This is an obese male patient lying in bed in no apparent distress. HEENT: Head normocephalic and atraumatic. Eyes: Anicteric sclerae. Conjunctivae clear. ENT: Nasal septum is midline. Oral mucosa is dry. NECK: Supple. No JVD noticed. RESPIRATORY: Bilaterally clear to auscultation. No adventitious breath sounds. No use of accessory muscles of respiration. CARDIAC: Regular rate and rhythm. Median sternotomy scar clean, dry and intact. ABDOMEN: Soft, nontender and nondistended. Bowel sounds positive in all 4 quadrants. GENITOURINARY: Deferred. EXTREMITIES: Hyperpigmentation of bilateral lower extremities. Left lower extremity wound dressings on the posterior aspect below the knee. Peripheral pulses are palpable. NEUROLOGIC: The patient is awake, alert and oriented. Cranial nerves are grossly intact. Results Result Diagram: 07/16/16 0520 07/18/16 0512 Results 24 hrs Laboratory Tests Test 07/17/16 18:00 07/18/16 05:12 Urine Opiates Screen Negative Urine Barbiturates Negative Urine Amphetamines Screen Negative Urine Benzodiazepines Screen Negative Urine Cocaine Screen Negative Urine Cannabinoids Negative Blood Urea Nitrogen 16 Creatinine 1.01 Vancomycin Level Trough 15.0 Medications Medications Current Medications Aspirin (Aspirin) 81 mg DAILY NGT Last administered on 07/17/16 09:34; Admin Dose 81 MG; Start 07/12/16 at 09:00 Atorvastatin Calcium (Lipitor) 80 mg HS NGT Last administered on 07/17/16 21: 37; Admin Dose 80 MG; Start 07/11/16 at 21:00 Clopidogrel Bisulfate (plaVIX) 75 mg DAILY NGT Last administered on 07/17/16 09:35; Admin Dose 75 MG; Start 07/12/16 at 09:00 Lisinopril (Zestril) 10 mg DAILY PO Last administered on 07/17/16 09:35; Admin Dose 10 MG; Start 07/12/16 at 09:00 Metoprolol Tartrate 25 mg 25 mg BID NGT Last administered on 07/17/16 21:37; Admin Dose 25 MG; Start 07/11/16 at 21:00 Sodium Chloride (NS) 1,000 ml @ 60 mls/hr [id number] IV Last administered on 07/17 05:03; Admin Dose 60 MLS/HR; Start 07/11/16 at 16:12 Ondansetron HCl (Zofran Inj) 4 mg Q6H PRN IV NAUSEA AND/OR VOMITING; Start at 16:30 Acetaminophen (Tylenol Tab) 650 mg Q6H PRN PO PAIN LEVEL 1-3 OR FEVER Last administered on 07/15/16 08:01; Admin Dose 650 MG; Start 07/11/16 at 16:30 Acetaminophen (Tylenol Supp) 650 mg Q6H PRN [place] PAIN LEVEL 1-3 OR FEVER; Start 07/11/16 at 16:30 Acetaminophen/ Hydrocodone Bitart ([place] (5/325)) 1 tab Q6H PRN PO MODERATE PAIN LEVEL 4-6; Start 07/11/16 at 16:30 Acetaminophen/ Hydrocodone Bitart ([place] (5/325)) 2 tab Q6H PRN PO SEVERE PAIN LEVEL 7-10; Start 07/11/16 at 16:30 Morphine Sulfate (morphine) 2 mg Q4H PRN IV SEVERE PAIN LEVEL 7-10; Start 07/11 at 16:30 Docusate Sodium (Colace) 100 mg Q12H PRN PO CONSTIPATION; Start 07/11/16 at 16: 30 Magnesium Hydroxide (Milk Of Mag) 30 ml DAILY PRN PO CONSTIPATION; Start at 16:30 Bisacodyl (Dulcolax Supp) 10 mg DAILY PRN [place] CONSTIPATION; Start 07/11/16 at 16 :30 Heparin Sodium (Porcine) (Heparin (5000 Units/0.5 ml)) 5,000 unit Q12 SC Last administered on 07/17/16 21:45; Admin Dose 5,000 UNIT; Start 07/11/16 at 21:00 Pantoprazole 40 mg 40 mg DAILY@06 PO Last administered on 07/18/16 06:16; Admin Dose 40 MG; Start 07/14/16 at 06:00 Levofloxacin/ Dextrose 150 ml @ 100 mls/hr Q24H IVPB Last administered on 07/17 16:37; Admin Dose 100 MLS/HR; Start 07/14/16 at 16:00 Metronidazole 100 ml @ 100 mls/hr Q8 IVPB Last administered on 07/18/16 06:16 ; Admin Dose 100 MLS/HR; Start 07/14/16 at 15:00 Vancomycin HCl/ Sodium Chloride (Vancocin/NS) 250 ml @ 83.333 mls/ hr Q12H IVPB Last administered on 07/18/16 07:22; Admin Dose 83.333 MLS/HR; Start at 06:00 KRISTIE ESPINAL NP Jul 18, 2016 09:07
[2016-07-18] MEDS: CLOPIDOGREL 75 MG TAB NGT SCH (09:23)
[2016-07-18] MEDS: ASPIRIN 81 MG TAB NGT SCH (09:23)
[2016-07-18] MEDS: LISINOPRIL 10 MG TAB PO SCH (09:24)
[2016-07-18] MEDS: METOPROLOL 25 MG TAB NGT SCH ×2 (09:24→21:47)
[2016-07-18] MEDS: HEPARIN 5,000 UNIT/0.5 ML SYG SC SCH ×2 (09:46→21:48)
[2016-07-18] MEDS: SOD CHLORIDE 0.9% 1,000 ML IV SCH (14:37)
[2016-07-18] MEDS: LEVOFLOXACIN 750MG/D5W (PMX) 150 ML IVPB SCH (16:43)
[2016-07-18 20:24] VITALS: BP 126/59; RESP 18
[2016-07-18] MEDS: ATORVASTATIN 80 MG TAB NGT SCH (21:46)
[2016-07-19] MEDS: PANTOPRAZOLE (EC) 40 MG TAB PO SCH (05:31)
[2016-07-19] MEDS: metroNIDAZOLE 500 MG/NS (PMX) 100 ML IVPB SCH ×3 (05:31→21:42)
[2016-07-19] MEDS: VANCOMYCIN 1.5 GM in SOD CHLORIDE 0.9% 250 ML IVPB SCH ×2 (05:48→18:42)
[2016-07-19] MEDS: SOD CHLORIDE 0.9% 1,000 ML IV SCH ×2 (07:32→21:48)
[2016-07-19 08:08] VITALS: BP 101/54; RESP 20
[2016-07-19] MEDS: LISINOPRIL 10 MG TAB PO SCH (09:00)
[2016-07-19] MEDS: ASPIRIN 81 MG TAB NGT SCH (09:28)
[2016-07-19] MEDS: CLOPIDOGREL 75 MG TAB NGT SCH (09:29)
[2016-07-19] MEDS: METOPROLOL 25 MG TAB NGT SCH ×2 (09:29→21:42)
[2016-07-19] MEDS: HEPARIN 5,000 UNIT/0.5 ML SYG SC SCH ×2 (09:50→21:44)
--- NOTE | 2016-07-19 10:24 | CONS ---
Date/Time of Note Date/Time of Note DATE: 07/19/16 TIME: 10:23 Assessment/Plan Assessment/Plan Chief Complaint/Hosp Course - sepsis - multiple abscess of LLE s/p recent I&D; s/p bedside drainage of seromas by CTS 07/15/16 - h/o myocardial infarction/VF arrest, status post CABG x4. - History of atrial fibrillation. - Chronic cardiomyopathy. - Atrial fibrillation/atrial flutter. - h/o MRSA nares. - Anemia. - Pulmonary embolism in 2009. - SBO recently. - Large basal cell carcinoma of the mid back, status post excision in 2014. recommendations: - Continue Levofloxacin 750 mg IV daily and Flagyl 500 mg IV q8hr (07/14/2016), will change both to PO starting tomorrow AM; continue IV vancomycin (07/16/2016-) ; I suggest two weeks ending on 07/28/2016. I recommend PICC placement - I recommend IV vancomycin based antibiotic regimen instead of PO antibiotic regimen because the affected area is still indurated and swollen management d/w Pt Problems: Consultation Date/Type/Reason Admit Date/Time Jul 11, 2016 at 15:46 Initial Consult Date 07/12/16 Type of Consultation: Infectious Disease Referring Provider: JHONATAN BENDER 24 HR Interval Summary Constitutional: no complaints Detailed Summary Eyes: no complaints ENT: no complaints Respiratory: no complaints Cardiovascular: no complaints Gastrointestinal: no complaints Genitourinary: no complaints Musculoskeletal: no complaints Skin: skin lesions (pain rated 2) Exam/Review of Systems Vital Signs Vitals Vital Signs Date Time Temp Pulse Resp B/P Pulse Ox O2 Delivery O2 Flow Rate FiO2 07/19/16 08:08 98.5 66 20 101/54 94 Intake and Output 07/18/16 07/18/16 07/19/16 15:00 23:00 07:00 Intake Total 350 ml 1900 ml 580 ml Output Total 1825 ml 750 ml Balance 350 ml 75 ml -170 ml Exam Constitutional: alert, oriented, well developed Psych: nl mood/affect, no complaints Head: atraumatic, normocephalic Eyes: nl conjunctiva, nl lids ENMT: nl external ears & nose, nl nasal mucosa & septum Neck: supple Musculoskeletal: swelling Extremities: edema Skin: rash or lesions (induration s/p I&D of LLE) Results Result Diagram: 07/16/16 0520 07/18/16 0512 Medications Medications Current Medications Aspirin (Aspirin) 81 mg DAILY NGT Last administered on 07/19/16 09:28; Admin Dose 81 MG; Start 07/12/16 at 09:00 Atorvastatin Calcium (Lipitor) 80 mg HS NGT Last administered on 07/18/16 21: 46; Admin Dose 80 MG; Start 07/11/16 at 21:00 Clopidogrel Bisulfate (plaVIX) 75 mg DAILY NGT Last administered on 07/19/16 09:29; Admin Dose 75 MG; Start 07/12/16 at 09:00 Lisinopril (Zestril) 10 mg DAILY PO Last administered on 07/18/16 09:24; Admin Dose 10 MG; Start 07/12/16 at 09:00 Metoprolol Tartrate 25 mg 25 mg BID NGT Last administered on 07/19/16 09:29; Admin Dose 25 MG; Start 07/11/16 at 21:00 Sodium Chloride (NS) 1,000 ml @ 60 mls/hr [id number] IV Last administered on 07/18 14:37; Admin Dose 60 MLS/HR; Start 07/11/16 at 16:12 Ondansetron HCl (Zofran Inj) 4 mg Q6H PRN IV NAUSEA AND/OR VOMITING; Start at 16:30 Acetaminophen (Tylenol Tab) 650 mg Q6H PRN PO PAIN LEVEL 1-3 OR FEVER Last administered on 07/15/16 08:01; Admin Dose 650 MG; Start 07/11/16 at 16:30 Acetaminophen (Tylenol Supp) 650 mg Q6H PRN [place] PAIN LEVEL 1-3 OR FEVER; Start 07/11/16 at 16:30 Acetaminophen/ Hydrocodone Bitart ([place] (5/325)) 1 tab Q6H PRN PO MODERATE PAIN LEVEL 4-6; Start 07/11/16 at 16:30 Acetaminophen/ Hydrocodone Bitart ([place] (5/325)) 2 tab Q6H PRN PO SEVERE PAIN LEVEL 7-10; Start 07/11/16 at 16:30 Morphine Sulfate (morphine) 2 mg Q4H PRN IV SEVERE PAIN LEVEL 7-10; Start 07/11 at 16:30 Docusate Sodium (Colace) 100 mg Q12H PRN PO CONSTIPATION; Start 07/11/16 at 16: 30 Magnesium Hydroxide (Milk Of Mag) 30 ml DAILY PRN PO CONSTIPATION; Start at 16:30 Bisacodyl (Dulcolax Supp) 10 mg DAILY PRN [place] CONSTIPATION; Start 07/11/16 at 16 :30 Heparin Sodium (Porcine) (Heparin (5000 Units/0.5 ml)) 5,000 unit Q12 SC Last administered on 07/19/16 09:50; Admin Dose 5,000 UNIT; Start 07/11/16 at 21:00 Pantoprazole 40 mg 40 mg DAILY@06 PO Last administered on 07/19/16 05:31; Admin Dose 40 MG; Start 07/14/16 at 06:00 Levofloxacin/ Dextrose 150 ml @ 100 mls/hr Q24H IVPB Last administered on 07/18 16:43; Admin Dose 100 MLS/HR; Start 07/14/16 at 16:00 Metronidazole 100 ml @ 100 mls/hr Q8 IVPB Last administered on 07/19/16 05:31 ; Admin Dose 100 MLS/HR; Start 07/14/16 at 15:00 Vancomycin HCl/ Sodium Chloride (Vancocin/NS) 250 ml @ 83.333 mls/ hr Q12H IVPB Last administered on 07/19/16 05:48; Admin Dose 83.333 MLS/HR; Start at 06:00 NATASHA LUIS M.D. Jul 19, 2016 10:24
--- NOTE | 2016-07-19 12:02 | PN ---
Date/Time of Note Date/Time of Note DATE: 07/19/16 TIME: 11:59 Assessment/Plan VTE Prophylaxis VTE Prophylaxis Intervention: heparin Lines/Catheters IV Catheter Type (from Nrs): Peripheral IV Assessment/Plan Assessment/Plan - sepsis - multiple abscess of LLE s/p recent I&D; s/p bedside drainage of seromas by CTS 07/15/16 - h/o myocardial infarction/VF arrest, status post CABG x4. - History of atrial fibrillation. - Chronic cardiomyopathy. - Atrial fibrillation/atrial flutter. - h/o MRSA nares. - Anemia. - Pulmonary embolism in 2009. - SBO recently. - Large basal cell carcinoma of the mid back, status post excision in 2015. Plan: ID following Continue PO levaquin, IV flagyl- plan is to switch to PO from tomorrow IV vancomycin as per ID for 2 weeks till 07/28/16- will need PICC line placeement if ID agree with plan Heparin for DVT prophylaxis Subjective 24 Hr Interval Summary Free Text/Dictation doing ok, pain controlled,a febrile, BP stable Exam/Review of Systems Vital Signs Vitals Vital Signs Date Time Temp Pulse Resp B/P Pulse Ox O2 Delivery O2 Flow Rate FiO2 07/19/16 08:08 98.5 66 20 101/54 94 Intake and Output 07/18/16 07/18/16 07/19/16 14:59 22:59 06:59 Intake Total 350 ml 1900 ml 580 ml Output Total 1825 ml 750 ml Balance 350 ml 75 ml -170 ml Exam Constitutional: alert, oriented, well developed Psych: nl mood/affect, no complaints Head: atraumatic, normocephalic Eyes: nl conjunctiva, nl lids ENMT: nl external ears & nose, nl nasal mucosa & septum Neck: supple Musculoskeletal: swelling Extremities: edema Skin: rash or lesions (induration s/p I&D of LLE) Results Result Diagram: 07/16/16 0520 07/18/16 0512 Medications Medications Current Medications Aspirin (Aspirin) 81 mg DAILY NGT Last administered on 07/19/16 09:28; Admin Dose 81 MG; Start 07/12/16 at 09:00 Atorvastatin Calcium (Lipitor) 80 mg HS NGT Last administered on 07/18/16 21: 46; Admin Dose 80 MG; Start 07/11/16 at 21:00 Clopidogrel Bisulfate (plaVIX) 75 mg DAILY NGT Last administered on 07/19/16 09:29; Admin Dose 75 MG; Start 07/12/16 at 09:00 Lisinopril (Zestril) 10 mg DAILY PO Last administered on 07/18/16 09:24; Admin Dose 10 MG; Start 07/12/16 at 09:00 Metoprolol Tartrate 25 mg 25 mg BID NGT Last administered on 07/19/16 09:29; Admin Dose 25 MG; Start 07/11/16 at 21:00 Sodium Chloride (NS) 1,000 ml @ 60 mls/hr [id number] IV Last administered on 07/18 14:37; Admin Dose 60 MLS/HR; Start 07/11/16 at 16:12 Ondansetron HCl (Zofran Inj) 4 mg Q6H PRN IV NAUSEA AND/OR VOMITING; Start at 16:30 Acetaminophen (Tylenol Tab) 650 mg Q6H PRN PO PAIN LEVEL 1-3 OR FEVER Last administered on 07/15/16 08:01; Admin Dose 650 MG; Start 07/11/16 at 16:30 Acetaminophen (Tylenol Supp) 650 mg Q6H PRN [place] PAIN LEVEL 1-3 OR FEVER; Start 07/11/16 at 16:30 Acetaminophen/ Hydrocodone Bitart ([place] (5/325)) 1 tab Q6H PRN PO MODERATE PAIN LEVEL 4-6; Start 07/11/16 at 16:30 Acetaminophen/ Hydrocodone Bitart ([place] (5/325)) 2 tab Q6H PRN PO SEVERE PAIN LEVEL 7-10; Start 07/11/16 at 16:30 Morphine Sulfate (morphine) 2 mg Q4H PRN IV SEVERE PAIN LEVEL 7-10; Start 07/11 at 16:30 Docusate Sodium (Colace) 100 mg Q12H PRN PO CONSTIPATION; Start 07/11/16 at 16: 30 Magnesium Hydroxide (Milk Of Mag) 30 ml DAILY PRN PO CONSTIPATION; Start at 16:30 Bisacodyl (Dulcolax Supp) 10 mg DAILY PRN [place] CONSTIPATION; Start 07/11/16 at 16 :30 Heparin Sodium (Porcine) (Heparin (5000 Units/0.5 ml)) 5,000 unit Q12 SC Last administered on 07/19/16 09:50; Admin Dose 5,000 UNIT; Start 07/11/16 at 21:00 Pantoprazole 40 mg 40 mg DAILY@06 PO Last administered on 07/19/16 05:31; Admin Dose 40 MG; Start 07/14/16 at 06:00 Levofloxacin/ Dextrose 150 ml @ 100 mls/hr Q24H IVPB Last administered on 07/18 16:43; Admin Dose 100 MLS/HR; Start 07/14/16 at 16:00; Stop 07/19/16 at 23 :59 Metronidazole 100 ml @ 100 mls/hr Q8 IVPB Last administered on 07/19/16 05:31 ; Admin Dose 100 MLS/HR; Start 07/14/16 at 15:00; Stop 07/19/16 at 23:59 Vancomycin HCl/ Sodium Chloride (Vancocin/NS) 250 ml @ 83.333 mls/ hr Q12H IVPB Last administered on 07/19/16 05:48; Admin Dose 83.333 MLS/HR; Start at 06:00 Levofloxacin (Levaquin) 750 mg DAILY@06 GTB ; Start 07/20/16 at 06:00 Metronidazole (Flagyl) 500 mg Q8 PO ; Start 07/20/16 at 06:00 EFREM RODRIGUEZ MD Jul 19, 2016 12:02
[2016-07-19] MEDS: LEVOFLOXACIN 750MG/D5W (PMX) 150 ML IVPB SCH (16:40)
[2016-07-19 20:14] VITALS: BP 135/65; RESP 18
[2016-07-19] MEDS: ATORVASTATIN 80 MG TAB NGT SCH (21:42)
[2016-07-20 05:56] LABS: ADD SCAN DIFF NO
[2016-07-20 06:15] LABS: INR 1.13; PROTIME 14.5 Sec (12.2-14.2); PT RATIO 1.1
[2016-07-20 06:16] LABS: PARTIAL THROMBOPLASTIN TIME 32.2 Sec (25.0-35.0)
[2016-07-20 06:18] LABS: CREATININE 0.99 mg/dl (0.61-1.24)
[2016-07-20 06:19] LABS: BASOPHILS % 0.6 % (0.0-2.0); CALCIUM 8.5 mg/dl (8.4-10.2); EOSINOPHILS # 0.4 10^3/ul (0.0-0.5); EOSINOPHILS % 6.3 % (0.0-7.0); HEMATOCRIT 34.8 % (42.0-52.0); HEMOGLOBIN 10.9 g/dl (14.0-18.0); LYMPHOCYTES # 1.8 10^3/ul (0.8-2.9); LYMPHOCYTES % 27.1 % (15.0-51.0); MEAN CORPUSCULAR HEMOGLOBIN 28.8 pg (29.0-33.0); MEAN CORPUSCULAR HGB CONC 31.3 g/dl (32.0-37.0); MEAN CORPUSCULAR VOLUME 91.8 fl (82.0-101.0); MEAN PLATELET VOLUME 10.3 fl (7.4-10.4); MONOCYTE # 0.8 10^3/ul (0.3-0.9); MONOCYTES % 12.1 % (0.0-11.0); NEUTROPHIL # 3.6 10^3/ul (1.6-7.5); NEUTROPHILS % 53.3 % (39.0-77.0); PLATELET COUNT 270 10^3/UL (140-415); RED BLOOD COUNT 3.79 10^6/ul (4.70-6.10); RED CELL DISTRIBUTION WIDTH 14.6 % (11.5-14.5); WHITE BLOOD COUNT 6.7 10^3/ul (4.8-10.8)
[2016-07-20] MEDS: metroNIDAZOLE 500 MG TAB PO SCH ×3 (06:45→22:18)
[2016-07-20] MEDS: PANTOPRAZOLE (EC) 40 MG TAB PO SCH (06:45)
[2016-07-20] MEDS: LEVOFLOXACIN 750 MG TABLET GTB SCH (06:45)
[2016-07-20] MEDS: VANCOMYCIN 1.5 GM in SOD CHLORIDE 0.9% 250 ML IVPB SCH (06:55)
[2016-07-20 08:00] VITALS: BP 131/63; PULSE 67; RESP 20
[2016-07-20] MEDS: CLOPIDOGREL 75 MG TAB NGT SCH (09:41)
[2016-07-20] MEDS: METOPROLOL 25 MG TAB NGT SCH ×2 (09:41→22:18)
[2016-07-20] MEDS: LISINOPRIL 10 MG TAB PO SCH (09:41)
[2016-07-20] MEDS: HEPARIN 5,000 UNIT/0.5 ML SYG SC SCH ×2 (09:42→22:21)
[2016-07-20] MEDS: ASPIRIN 81 MG TAB NGT SCH (09:45)
--- NOTE | 2016-07-20 12:03 | CONS ---
Date/Time of Note Date/Time of Note DATE: 07/20/16 TIME: 12:00 Assessment/Plan Assessment/Plan Chief Complaint/Hosp Course - sepsis - multiple abscess of LLE s/p recent I&D; s/p bedside drainage of seromas by CTS 07/15/16 - h/o myocardial infarction/VF arrest, status post CABG x4. - History of atrial fibrillation. - Chronic cardiomyopathy. - Atrial fibrillation/atrial flutter. - h/o MRSA nares. - Anemia. - Pulmonary embolism in 2009. - SBO recently. - Large basal cell carcinoma of the mid back, status post excision in 2014. recommendations: - continue PO levofloxacin and PO metronidazole (07/14/2016), IV vancomycin (07/16-) while Pt's here. - Pt declined PICC placement; he understood that IV antibiotics are more effective than PO antibiotics but Pt does not want PICC. - Upon discharge I recommend levofloxacin 750 mg PO daily and Augmentin 875 mg bid ending on 07/30/2016 management d/w Pt Problems: Consultation Date/Type/Reason Admit Date/Time Jul 11, 2016 at 15:46 Initial Consult Date 07/12/16 Type of Consultation: Infectious Disease Referring Provider: JHONATAN BENDER 24 HR Interval Summary Constitutional: no complaints Detailed Summary Eyes: no complaints ENT: no complaints Respiratory: no complaints Cardiovascular: no complaints Gastrointestinal: no complaints Genitourinary: no complaints Musculoskeletal: no complaints Skin: skin lesions (swelling from L calf, no pain) Neurologic: no complaints Exam/Review of Systems Vital Signs Vitals Vital Signs Date Time Temp Pulse Resp B/P Pulse Ox O2 Delivery O2 Flow Rate FiO2 07/20/16 08:00 98.4 67 20 131/63 97 Room Air Intake and Output 07/19/16 07/19/16 07/20/16 15:00 23:00 07:00 Intake Total 250 ml 2290 ml 800 ml Output Total 1450 ml Balance 250 ml 840 ml 800 ml Exam Constitutional: alert, oriented, well developed Psych: nl mood/affect, no complaints Head: atraumatic, normocephalic Eyes: nl conjunctiva, nl lids ENMT: nl external ears & nose Neck: supple Musculoskeletal: nl extremities to inspection Skin: rash or lesions (s/p I&D, swelling of L calf, little induration) Results Result Diagram: 07/20/16 0528 07/20/16 0528 Results 24 hrs Laboratory Tests Test 07/20/16 05:28 White Blood Count 6.7 Red Blood Count 3.79 L Hemoglobin 10.9 L Hematocrit 34.8 L Mean Corpuscular Volume 91.8 Mean Corpuscular Hemoglobin 28.8 L Mean Corpuscular Hemoglobin Concent 31.3 L Red Cell Distribution Width 14.6 H Platelet Count 270 Mean Platelet Volume 10.3 Neutrophils % 53.3 Lymphocytes % 27.1 Monocytes % 12.1 H Eosinophils % 6.3 Basophils % 0.6 Nucleated Red Blood Cells % 0.0 Neutrophils # 3.6 Lymphocytes # 1.8 Monocytes # 0.8 Eosinophils # 0.4 Basophils # 0.0 Nucleated Red Blood Cells # 0.0 Prothrombin Time 14.5 H Prothrombin Time Ratio 1.1 INR International Normalized Ratio 1.13 Activated Partial Thromboplast Time 32.2 Sodium Level 140 Potassium Level 4.0 Chloride Level 107 Carbon Dioxide Level 25 Anion Gap 12 Blood Urea Nitrogen 15 Creatinine 0.99 Glucose Level 116 Calcium Level 8.5 Vancomycin Level Trough 17.7 Medications Medications Current Medications Aspirin (Aspirin) 81 mg DAILY NGT Last administered on 07/20/16 09:45; Admin Dose 81 MG; Start 07/12/16 at 09:00 Atorvastatin Calcium (Lipitor) 80 mg HS NGT Last administered on 07/19/16 21: 42; Admin Dose 80 MG; Start 07/11/16 at 21:00 Clopidogrel Bisulfate (plaVIX) 75 mg DAILY NGT Last administered on 07/20/16 09:41; Admin Dose 75 MG; Start 07/12/16 at 09:00 Lisinopril (Zestril) 10 mg DAILY PO Last administered on 07/20/16 09:41; Admin Dose 10 MG; Start 07/12/16 at 09:00 Metoprolol Tartrate 25 mg 25 mg BID NGT Last administered on 07/20/16 09:41; Admin Dose 25 MG; Start 07/11/16 at 21:00 Sodium Chloride (NS) 1,000 ml @ 60 mls/hr [id number] IV Last administered on 07/19 21:48; Admin Dose 60 MLS/HR; Start 07/11/16 at 16:12 Ondansetron HCl (Zofran Inj) 4 mg Q6H PRN IV NAUSEA AND/OR VOMITING; Start at 16:30 Acetaminophen (Tylenol Tab) 650 mg Q6H PRN PO PAIN LEVEL 1-3 OR FEVER Last administered on 07/15/16 08:01; Admin Dose 650 MG; Start 07/11/16 at 16:30 Acetaminophen (Tylenol Supp) 650 mg Q6H PRN [place] PAIN LEVEL 1-3 OR FEVER; Start 07/11/16 at 16:30 Acetaminophen/ Hydrocodone Bitart ([place] (5/325)) 1 tab Q6H PRN PO MODERATE PAIN LEVEL 4-6; Start 07/11/16 at 16:30 Acetaminophen/ Hydrocodone Bitart ([place] (5/325)) 2 tab Q6H PRN PO SEVERE PAIN LEVEL 7-10; Start 07/11/16 at 16:30 Morphine Sulfate (morphine) 2 mg Q4H PRN IV SEVERE PAIN LEVEL 7-10; Start 07/11 at 16:30 Docusate Sodium (Colace) 100 mg Q12H PRN PO CONSTIPATION; Start 07/11/16 at 16: 30 Magnesium Hydroxide (Milk Of Mag) 30 ml DAILY PRN PO CONSTIPATION; Start at 16:30 Bisacodyl (Dulcolax Supp) 10 mg DAILY PRN [place] CONSTIPATION; Start 07/11/16 at 16 :30 Heparin Sodium (Porcine) (Heparin (5000 Units/0.5 ml)) 5,000 unit Q12 SC Last administered on 07/20/16 09:42; Admin Dose 5,000 UNIT; Start 07/11/16 at 21:00 Pantoprazole (Protonix Tab) 40 mg DAILY@06 PO Last administered on 07/20/16 06 :45; Admin Dose 40 MG; Start 07/14/16 at 06:00 Levofloxacin (Levaquin) 750 mg DAILY@06 GTB Last administered on 07/20/16 06: 45; Admin Dose 750 MG; Start 07/20/16 at 06:00 Metronidazole 500 mg 500 mg Q8 PO Last administered on 07/20/16 06:45; Admin Dose 500 MG; Start 07/20/16 at 06:00 Vancomycin HCl/ Sodium Chloride (Vancocin/NS) 250 ml @ 83.333 mls/ hr Q12H IVPB ; Start 07/20/16 at 18:00 NATASHA LUIS M.D. Jul 20, 2016 12:03
--- NOTE | 2016-07-20 15:13 | PN ---
Date/Time of Note Date/Time of Note DATE: 07/20/16 TIME: 15:09 Assessment/Plan VTE Prophylaxis VTE Prophylaxis Intervention: heparin Lines/Catheters IV C[facility] Type (from [facility]): Peripheral IV Assessment/Plan Chief Complaint/Hosp Course Assessment/Plan: 61 M with: - sepsis - multiple abscess of LLE s/p recent I&D; s/p bedside drainage of seromas by CTS 07/15/16 - continue PO Levaquin + Flagyl, and IV vanco while inpt - f/u ID rec's - upon d/c will need levofloxacin 750 mg PO daily and Augmentin 875 mg bid ending on 07/30/2016 - h/o myocardial infarction/VF arrest, status post CABG x4. - working on setting up pt for outpt CV rehab and CV outpt MD f/u - History of atrial fibrillation. - monitor - Chronic cardiomyopathy. - Atrial fibrillation/atrial flutter. - h/o MRSA nares. - Anemia. - Pulmonary embolism in 2009. - SBO recently. - Large basal cell carcinoma of the mid back, status post excision in 2014. GI ppx - Pepcid Heparin for DVT prophylaxis Problems: Subjective 24 Hr Interval Summary Free Text/Dictation Pt had no acute events overnight, but has some questions about cardiac rehab. Exam/Review of Systems Vital Signs Vitals Vital Signs Date Time Temp Pulse Resp B/P Pulse Ox O2 Delivery O2 Flow Rate FiO2 07/20/16 08:00 98.4 67 20 131/63 97 Room Air Intake and Output 07/19/16 07/19/16 07/20/16 15:00 23:00 07:00 Intake Total 250 ml 2290 ml 800 ml Output Total 1450 ml Balance 250 ml 840 ml 800 ml Exam Constitutional: alert, oriented, well developed Psych: nl mood/affect, no complaints Head: atraumatic, normocephalic Eyes: nl conjunctiva, nl lids ENMT: nl external ears & nose, nl nasal mucosa & septum Neck: supple Musculoskeletal: swelling Extremities: edema Skin: rash or lesions (induration s/p I&D of LLE) Results Result Diagram: 07/20/1628 07/20/16527 Results 24 hrs Laboratory Tests Test 07/20/16 05:28 White Blood Count 6.7 Red Blood Count 3.79 L Hemoglobin 10.9 L Hematocrit 34.8 L Mean Corpuscular Volume 91.8 Mean Corpuscular Hemoglobin 28.8 L Mean Corpuscular Hemoglobin Concent 31.3 L Red Cell Distribution Width 14.6 H Platelet Count 270 Mean Platelet Volume 10.3 Neutrophils % 53.3 Lymphocytes % 27.1 Monocytes % 12.1 H Eosinophils % 6.3 Basophils % 0.6 Nucleated Red Blood Cells % 0.0 Neutrophils # 3.6 Lymphocytes # 1.8 Monocytes # 0.8 Eosinophils # 0.4 Basophils # 0.0 Nucleated Red Blood Cells # 0.0 Prothrombin Time 14.5 H Prothrombin Time Ratio 1.1 INR International Normalized Ratio 1.13 Activated Partial Thromboplast Time 32.2 Sodium Level 140 Potassium Level 4.0 Chloride Level 107 Carbon Dioxide Level 25 Anion Gap 12 Blood Urea Nitrogen 15 Creatinine 0.99 Glucose Level 116 Calcium Level 8.5 Vancomycin Level Trough 17.7 Medications Medications Current Medications Aspirin (Aspirin) 81 mg DAILY NGT Last administered on 07/20/16 09:45; Admin Dose 81 MG; Start 07/12/16 at 09:00 Atorvastatin Calcium (Lipitor) 80 mg HS NGT Last administered on 07/19/16 21: 42; Admin Dose 80 MG; Start 07/11/16 at 21:00 Clopidogrel Bisulfate (plaVIX) 75 mg DAILY NGT Last administered on 07/20/16 09:41; Admin Dose 75 MG; Start 07/12/16 at 09:00 Lisinopril (Zestril) 10 mg DAILY PO Last administered on 07/20/16 09:41; Admin Dose 10 MG; Start 07/12/16 at 09:00 Metoprolol Tartrate 25 mg 25 mg BID NGT Last administered on 07/20/16 09:41; Admin Dose 25 MG; Start 07/11/16 at 21:00 Sodium Chloride (NS) 1,000 ml @ 60 mls/hr [id number] IV Last administered on 07/19 21:48; Admin Dose 60 MLS/HR; Start 07/11/16 at 16:12 Ondansetron HCl (Zofran Inj) 4 mg Q6H PRN IV NAUSEA AND/OR VOMITING; Start at 16:30 Acetaminophen (Tylenol Tab) 650 mg Q6H PRN PO PAIN LEVEL 1-3 OR FEVER Last administered on 07/15/16 08:01; Admin Dose 650 MG; Start 07/11/16 at 16:30 Acetaminophen (Tylenol Supp) 650 mg Q6H PRN [place] PAIN LEVEL 1-3 OR FEVER; Start 07/11/16 at 16:30 Acetaminophen/ Hydrocodone Bitart ([place] (5/325)) 1 tab Q6H PRN PO MODERATE PAIN LEVEL 4-6; Start 07/11/16 at 16:30 Acetaminophen/ Hydrocodone Bitart ([place] (5/325)) 2 tab Q6H PRN PO SEVERE PAIN LEVEL 7-10; Start 07/11/16 at 16:30 Morphine Sulfate (morphine) 2 mg Q4H PRN IV SEVERE PAIN LEVEL 7-10; Start 07/11 at 16:30 Docusate Sodium (Colace) 100 mg Q12H PRN PO CONSTIPATION; Start 07/11/16 at 16: 30 Magnesium Hydroxide (Milk Of Mag) 30 ml DAILY PRN PO CONSTIPATION; Start at 16:30 Bisacodyl (Dulcolax Supp) 10 mg DAILY PRN [place] CONSTIPATION; Start 07/11/16 at 16 :30 Heparin Sodium (Porcine) (Heparin (5000 Units/0.5 ml)) 5,000 unit Q12 SC Last administered on 07/20/16 09:42; Admin Dose 5,000 UNIT; Start 07/11/16 at 21:00 Pantoprazole (Protonix Tab) 40 mg DAILY@06 PO Last administered on 07/20/16 06 :45; Admin Dose 40 MG; Start 07/14/16 at 06:00 Levofloxacin (Levaquin) 750 mg DAILY@06 GTB Last administered on 07/20/16 06: 45; Admin Dose 750 MG; Start 07/20/16 at 06:00 Metronidazole 500 mg 500 mg Q8 PO Last administered on 07/20/16 13:35; Admin Dose 500 MG; Start 07/20/16 at 06:00 Vancomycin HCl/ Sodium Chloride (Vancocin/NS) 250 ml @ 83.333 mls/ hr Q12H IVPB ; Start 07/20/16 at 18:00 MAREK BECERRA Jul 20, 2016 15:13
[2016-07-20] MEDS: SOD CHLORIDE 0.9% 1,000 ML IV SCH (16:52)
[2016-07-20] MEDS: VANCOMYCIN 1.25 GM in SOD CHLORIDE 0.9% 250 ML IVPB SCH (18:16)
[2016-07-20 20:00] VITALS: BP 126/60; RESP 19
[2016-07-20] MEDS: ATORVASTATIN 80 MG TAB NGT SCH (22:18)
[2016-07-21] MEDS: VANCOMYCIN 1.25 GM in SOD CHLORIDE 0.9% 250 ML IVPB SCH (06:05)
[2016-07-21] MEDS: metroNIDAZOLE 500 MG TAB PO SCH ×2 (06:05→14:19)
[2016-07-21] MEDS: LEVOFLOXACIN 750 MG TABLET GTB SCH (06:06)
[2016-07-21 08:05] VITALS: BP 120/69; RESP 20
[2016-07-21] MEDS ORDERED: FAMOTIDINE 20 MG TAB PO SCH (09:00)
[2016-07-21] MEDS: ASPIRIN 81 MG TAB NGT SCH (09:29)
[2016-07-21] MEDS: CLOPIDOGREL 75 MG TAB NGT SCH (09:29)
[2016-07-21] MEDS: METOPROLOL 25 MG TAB NGT SCH (09:30)
[2016-07-21] MEDS: HEPARIN 5,000 UNIT/0.5 ML SYG SC SCH (09:32)
[2016-07-21] MEDS: SOD CHLORIDE 0.9% 1,000 ML IV SCH ×2 (09:32→12:20)
[2016-07-21] MEDS: LISINOPRIL 10 MG TAB PO SCH (09:35)
--- NOTE | 2016-07-21 09:40 | PDOCDIS ---
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 MAREK BECERRA Jul 21, 2016 09:40
[2016-07-21] MEDS ORDERED: AMOX1TAB10 PO (09:42)
[2016-07-21] MEDS ORDERED: LEVO750T25 PO (09:42)
--- NOTE | 2016-07-21 10:45 | DS ---
DATE OF ADMISSION: 07/11/2016 DATE OF DISCHARGE: 07/21/2016 HOSPITAL COURSE: This is a 61-year-old male originally admitted on 07/11/2016 being discharged home on 07/21/2016. The patient came in with multiple abscesses of the left lower extremity with signs of sepsis. He was placed on p.o. and IV antibiotics. He underwent incision and drainage procedure actually by cardiothoracic surgeon on 07/15/2016. The patient tolerated the procedure well. Afterwards, his wound culture grew positive Enterobacter and Enterococcus species that was sensitive to the antibiotics. The patient's white count improved. No fevers. He was able to ambulate and tolerate a p.o. diet. Case management set the patient for cardiac rehabilitation and outpatient cardiology followup, and this is because the patient has a recent history of a myocardial infarction, and he had a CABG procedure performed x4 and this was performed about 3 weeks prior to this admission. His AFib and chronic cardiomyopathy are stable as well. The patient will be discharged home today in improved condition. He will be sent with the following medications: 1. Augmentin 1 tab p.o. b.i.d. for 10 days. 2. Levaquin 750 mg daily for 10 days. 3. Aspirin 81 mg daily. 4. Atorvastatin 80 mg at bedtime. 5. Plavix 75 mg daily. 6. Lisinopril 10 mg daily. 7. Lopressor 25 mg b.i.d. 8. Prednisone 60 mg p.o. daily for 1 day, then 40 mg p.o. daily for 2 days, then 20 mg p.o. daily for 3 days, then discontinue. FOLLOWUP: Again, he will follow up with cardiology team in the next 1 to 2 weeks. Continue cardiac rehabilitation as an outpatient and go home with home health nursing for further wound care as well. FINAL DIAGNOSES: 1. Sepsis secondary to multiple abscess, no lower extremity is status post incision and drainage, now improved on antibiotics. 2. History of myocardial infarction ventricular fibrillation arrest, status post CABG 3 weeks ago, now on cardiac medications. Follow up with the cardiothoracic surgery team as an outpatient. 3. History of atrial fibrillation, stable. 4. History of chronic cardiomyopathy, stable. 5. History of methicillin-resistant Staphylococcus aureus in the nares. 6. Anemia 7. Pulmonary embolism in 2009. 8. Recent SBO, now resolved. 9. Large basal cell carcinoma of the mid back, status post excision in 2014. 10. High cholesterol. 11. 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 History of repair of large ventral incisional 2010. 13. History of back wound infection with MSSA, Enterobacter, Klebsiella, Corynebacterium 2014. TIME SPENT DISCHARGING PATIENT: 40 minutes. Dictated By: MAREK BHAKTA Conf#: [id number] DID#: [id number] MTDD
--- NOTE | 2016-07-21 11:01 | CONS ---
Date/Time of Note Date/Time of Note DATE: 07/21/16 TIME: 11:01 Assessment/Plan Assessment/Plan Chief Complaint/Hosp Course - sepsis - multiple abscess of LLE s/p recent I&D; s/p bedside drainage of seromas by CTS 07/15/16 - h/o myocardial infarction/VF arrest, status post CABG x4. - History of atrial fibrillation. - Chronic cardiomyopathy. - Atrial fibrillation/atrial flutter. - h/o MRSA nares. - Anemia. - Pulmonary embolism in 2009. - SBO recently. - Large basal cell carcinoma of the mid back, status post excision in 2014. recommendations: - continue PO levofloxacin and PO metronidazole (07/14/2016), IV vancomycin (07/16-) while Pt's here. - Pt declined PICC placement; he understood that IV antibiotics are more effective than PO antibiotics but Pt does not want PICC. - Upon discharge I recommend levofloxacin 750 mg PO daily and Augmentin 875 mg bid ending on 07/30/2016 - I instructed Pt to f/u with his PMD and surgeon upon discharge management d/w Pt Problems: Consultation Date/Type/Reason Admit Date/Time Jul 11, 2016 at 15:46 Initial Consult Date 07/12/16 Type of Consultation: Infectious Disease Referring Provider: JHONATAN BENDER 24 HR Interval Summary Constitutional: no complaints Detailed Summary Eyes: no complaints ENT: no complaints Respiratory: no complaints Cardiovascular: no complaints Gastrointestinal: no complaints Genitourinary: no complaints Musculoskeletal: no complaints Skin: skin lesions (clear discharge from LLE) Neurologic: no complaints Exam/Review of Systems Vital Signs Vitals Vital Signs Date Time Temp Pulse Resp B/P Pulse Ox O2 Delivery O2 Flow Rate FiO2 07/21/16 08:05 98.3 56 20 120/69 96 07/20/16 08:00 Room Air Intake and Output 07/20/16 07/20/16 07/21/16 15:00 23:00 07:00 Intake Total 1610 ml 550 ml Output Total 950 ml Balance 660 ml 550 ml Exam Constitutional: alert, oriented, well developed Psych: nl mood/affect, no complaints Head: normocephalic Eyes: nl conjunctiva, nl lids, nl sclera ENMT: nl external ears & nose Neck: supple Extremities: No edema Neurological: NURSE [place] II-XII intact, nl mental status, nl speech, nl strength Skin: other (less swollen, dressing is c/d/i) Results Result Diagram: 07/20/1652707/20/16527 Medications Medications Current Medications Aspirin (Aspirin) 81 mg DAILY NGT Last administered on 07/21/16 09:29; Admin Dose 81 MG; Start 07/12/16 at 09:00 Atorvastatin Calcium (Lipitor) 80 mg HS NGT Last administered on 07/20/16 22: 18; Admin Dose 80 MG; Start 07/11/16 at 21:00 Clopidogrel Bisulfate (plaVIX) 75 mg DAILY NGT Last administered on 07/21/16 09:29; Admin Dose 75 MG; Start 07/12/16 at 09:00 Lisinopril (Zestril) 10 mg DAILY PO Last administered on 07/21/16 09:35; Admin Dose 10 MG; Start 07/12/16 at 09:00 Metoprolol Tartrate 25 mg 25 mg BID NGT Last administered on 07/21/16 09:30; Admin Dose 25 MG; Start 07/11/16 at 21:00 Sodium Chloride (NS) 1,000 ml @ 60 mls/hr [id number] IV Last administered on 07/19 21:48; Admin Dose 60 MLS/HR; Start 07/11/16 at 16:12 Ondansetron HCl (Zofran Inj) 4 mg Q6H PRN IV NAUSEA AND/OR VOMITING; Start at 16:30 Acetaminophen (Tylenol Tab) 650 mg Q6H PRN PO PAIN LEVEL 1-3 OR FEVER Last administered on 07/15/16 08:01; Admin Dose 650 MG; Start 07/11/16 at 16:30 Acetaminophen (Tylenol Supp) [address] PAIN LEVEL 1-3 OR FEVER; Start 07/11/16 at 16:30 Acetaminophen/ Hydrocodone Bitart ([place] (5/325)) 1 tab Q6H PRN PO MODERATE PAIN LEVEL 4-6; Start 07/11/16 at 16:30 Acetaminophen/ Hydrocodone Bitart ([place] (5/325)) 2 tab Q6H PRN PO SEVERE PAIN LEVEL 7-10; Start 07/11/16 at 16:30 Morphine Sulfate (morphine) 2 mg Q4H PRN IV SEVERE PAIN LEVEL 7-10; Start 07/11 at 16:30 Docusate Sodium (Colace) 100 mg Q12H PRN PO CONSTIPATION; Start 07/11/16 at 16: 30 Magnesium Hydroxide (Milk Of Mag) 30 ml DAILY PRN PO CONSTIPATION; Start at 16:30 Bisacodyl (Dulcolax Supp) [address] CONSTIPATION; Start 07/11/16 at 16 :30 Heparin Sodium (Porcine) (Heparin (5000 Units/0.5 ml)) 5,000 unit Q12 SC Last administered on 07/21/16 09:32; Admin Dose 5,000 UNIT; Start 07/11/16 at 21:00 Levofloxacin (Levaquin) 750 mg DAILY@06 GTB Last administered on 07/21/16 06: 06; Admin Dose 750 MG; Start 07/20/16 at 06:00 Metronidazole 500 mg 500 mg Q8 PO Last administered on 07/21/16 06:05; Admin Dose 500 MG; Start 07/20/16 at 06:00 Vancomycin HCl/ Sodium Chloride (Vancocin/NS) 250 ml @ 83.333 mls/ hr Q12H IVPB Last administered on 07/21/16 06:05; Admin Dose 83.333 MLS/HR; Start at 18:00 Famotidine (Pepcid) 20 mg DAILY PO Last administered on 07/21/16 09:30; Admin Dose 20 MG; Start 07/21/16 at 09:00 NATASHA LUIS M.D. Jul 21, 2016 11:01
== END 2016-07-21 15:55 | disposition home or self-care (01) | DRG 862 ==
LOC: E/R 14:17 → MS2 15:46
PROVIDERS: ADMIT Internal Medicine; ATTEND Internal Medicine
PROC: 0Y9B0ZZ Drainage of Left Lower Extremity, Open Approach (ICD-10-PCS; principal; 2016-07-11)
DX: T81.4XXA Infection following a procedure, initial encounter (principal); A41.9 Sepsis, unspecified organism; I42.9 Cardiomyopathy, unspecified; L02.416 Cutaneous abscess of left lower limb; L03.116 Cellulitis of left lower limb; I25.10 Atherosclerotic heart disease of native coronary artery without angina pectoris; E78.5 Hyperlipidemia, unspecified; I25.2 Old myocardial infarction; I48.91 Unspecified atrial fibrillation; D64.9 Anemia, unspecified; B96.89 Other specified bacterial agents as the cause of diseases classified elsewhere; B95.2 Enterococcus as the cause of diseases classified elsewhere; Z95.1 Presence of aortocoronary bypass graft; Z86.711 Personal history of pulmonary embolism; Z85.828 Personal history of other malignant neoplasm of skin
CPT/HCPCS: 36415; 71010; 73700; 80048; 80053; 80061; 80202; 80307; 81001; 81003; 82565; 82728; 83036; 83540; 83605; 83735; 84100; 84436; 84443; 84479; 84484; 84520; 85025; 85610; 85730; 87040; 87070; 87081; 87086; 90686; 93005; 96365; 96367; C9113; J0692; J1644; J1956; J2543; J3370; J7030; J7040; J7050; Q9967

== ENCOUNTER 2016-07-23 13:23 | Emergency (ER) | payer OTHER ==
[~2016-07-23] VITALS: Ht 182.9 cm; Wt 109.0 kg
[~2016-07-23 13:23] MED LIST changes: +AMOX1TAB10 PO; -BACITUD TOP; -DOCU-144 PO; +LEVO750T25 PO; -MUPI22OI2 TOP; -ONDA-43 PO
[2016-07-23 13:42] VITALS: Ht 182.9 cm; Wt 109.0 kg
[2016-07-23] MEDS ORDERED: SOD CHLORIDE 0.9% 1,000 ML IV STA (13:47)
--- NOTE | 2016-07-23 14:20 | ERD ---
ER Documentation Chief Complaint Date/Time DATE: 07/23/16 TIME: 14:18 Chief Complaint near syncope at home during a wound check to the left leg HPI 61-year-old man brought in by EMS for near syncopal episode while at home today getting a wound check for a left lower leg cellulitis/abscess. While packing the abscess he felt weak and almost fainted, and is visiting nurse checked the blood pressure just at the moment and found the systolic to be 80 mmHg. His symptoms resolved momentarily and 911 was called and he was transferred here without complications. Patient states he does have a history of hypertension and some of his antihypertensives are new and he used all of them this morning just prior to the nurses arrival. He denies fevers or chills, no chest pain or shortness of breath, no seizure activity. ROS All systems reviewed and are negative except as per history of present illness. Medications Home Meds Active Scripts Amoxicillin/Potassium Clav (Amox-Clav 875-125 mg Tablet) 875-125 mg Tab, 1 TAB PO BID, #20 TAB Prov:MAREK BECERRA S. 07/21/16 Levofloxacin* (Levaquin*) 750 Mg Tablet, 750 MG PO DAILY, #10 TAB Prov:MAREK BECERRA S. 07/21/16 Lisinopril* (Lisinopril*) 10 Mg Tablet, 10 MG PO DAILY, #30 TAB 4 Refills Prov:MAREK BECERRA S. 06/24/16 Metoprolol Tartrate* (Lopressor*) 25 Mg Tab, 25 MG NGT BID, #60 TAB 4 Refills Prov:MAREK BECERRA S. 06/24/16 Clopidogrel Bisulfate (Clopidogrel) 75 Mg Tablet, 75 MG NGT DAILY, #30 TAB 8 Refills Prov:MAREK BECERRA S. 06/24/16 Atorvastatin* (Atorvastatin*) 80 Mg Tablet, 80 MG NGT HS, #30 TAB 4 Refills Prov:MAREK BECERRA S. 06/24/16 Aspirin (Aspirin) 81 Mg Chew, 81 MG NGT DAILY, #30 TAB 4 Refills Prov:MAREK BECERRA S. 06/24/16 Discontinued Reported Medications Cephalexin* (Cephalexin*) 500 Mg Capsule, 500 MG PO QID, #28 CAP 07/11/16 Allergies Allergies: Coded Allergies: No Known Allergy (Verified , 07/11/16) PMhx/Soc Coronary artery bypass graft, myocardial infarction, drug-induced cardiomyopathy , atrial fibrillation, previous pulmonary embolism, basal cell carcinoma, previous small bowel obstruction, lower extremity abscesses, previous V. fib arrest, hypertension History of Surgery: Yes (CABG (2 WEEKS AGO), REMOVAL OF SKIN CANCER ON THE BACK , 2010 HERNIA REPAIR) Anesthesia Reaction: No Hx Neurological Disorder: No Hx Cardiac Disorders: Yes (HX OF [place], HTN, CABG. ) Hx Psychiatric Problems: No Hx Miscellaneous Medical Probl: No Hx Alcohol Use: No Hx Substance Use: No Hx Tobacco Use: No FmHx Family History: diabetes Physical Exam Vitals Vital Signs Date Time Temp Pulse Resp B/P Pulse Ox O2 Delivery O2 Flow Rate FiO2 07/23/16 16:01 98.0 90 18 110/62 97 Room Air 07/23/16 15:55 98.4 78 16 123/81 96 Room Air 07/23/16 13:42 98.2 72 18 102/63 100 Physical Exam GENERAL: Well-developed, well-nourished, dehydrated HEENT: Dry mucous membranes, pink conjunctiva, no cervical spine tenderness or step-off deformities, no goiter, no jaundice or icterus, extraocular movements intact without pain. No submandibular induration, and no pharyngeal erythema NEURO: Alert and oriented 3, cranial nerves II through XII intact bilaterally, pupils equal round reactive to light, no focal deficits or facial asymmetry, sensation intact distally Strength 5/5 in upper and lower extremities bilaterally CARDIAC: Regular rate and rhythm, no murmurs rubs or gallops LUNGS: Clear bilaterally no wheezing crackles or stridor ABDOMEN: Soft nontender, no guarding, no rigidity, no rebound, no psoas sign no obturator sign. Normoactive bowel sounds SKIN: Clean appearing open abscess to the medial aspect of the left lower leg without surrounding skin induration or erythema, no active discharge, warm and dry to touch, no abrasions, contusions, or hematomas, EXTREMITIES: No clubbing cyanosis or edema, calves are bilaterally symmetrical, no Homans sign, no popliteal cord sign. Distal pulses equal and bilateral PSYCH: Normal affect without agitation or irritability Result Diagram: 07/23/16 1410 07/23/16 1410 Results 24 hrs Laboratory Tests Test 07/23/16 14:10 White Blood Count 7.110^3/ul Red Blood Count 3.7510^6/ul Hemoglobin 11.0g/dl Hematocrit 35.0% Mean Corpuscular Volume 93.3fl Mean Corpuscular Hemoglobin 29.3pg Mean Corpuscular Hemoglobin Concent 31.4g/dl Red Cell Distribution Width 14.9% Platelet Count 97213^3/UL Mean Platelet Volume 10.3fl Neutrophils % 57.7% Lymphocytes % 23.7% Monocytes % 14.8% Eosinophils % 3.1% Basophils % 0.4% Nucleated Red Blood Cells % 0.0/100WBC Neutrophils # 4.110^3/ul Lymphocytes # 1.710^3/ul Monocytes # 1.110^3/ul Eosinophils # 0.210^3/ul Basophils # 0.010^3/ul Nucleated Red Blood Cells # 0.010^3/ul Sodium Level 136mmol/L Potassium Level 4.7mmol/L Chloride Level 106mmol/L Carbon Dioxide Level 22mmol/L Anion Gap 13 Blood Urea Nitrogen 27mg/dl Creatinine 1.50mg/dl Glucose Level 106mg/dl Calcium Level 8.4mg/dl Total Bilirubin 0.4mg/dl Direct Bilirubin 0.00mg/dl Indirect Bilirubin 0.4mg/dl Aspartate Amino Transf (AST/SGOT) 52IU/L Alanine Aminotransferase (ALT/SGPT) 70IU/L Alkaline Phosphatase 90IU/L Troponin I < 0.012ng/ml Total Protein 7.7g/dl Albumin 3.5g/dl Globulin 4.20g/dl Albumin/Globulin Ratio 0.83 Lipase 62U/L Current Medications Medications (Trade) Dose Ordered Sig/Ramesh Route PRN Reason Start Time Stop Time Status Last Admin Dose Admin Sodium Chloride (NS) 1,000 ml @ 1,000 mls/hr Q1H STAT IV 07/23/16 13:47 07/23/16 14:46 DC 07/23/16 14:23 Procedures/MDM IV line was established patient was placed on cardiac cath tech rhythm strip revealed a sinus rhythm at about 70 bpm with upright P and T waves. Patient was afebrile. EKG performed, read by me: 67 bpm, normal sinus rhythm, normal axis, no acute ST segment changes, narrow QRS complex, with good R-wave progression in precordial leads. I administered 1 L normal saline intravenously for dehydration and his blood pressure remained normal throughout. Orthostatic vital signs were normal going from a laying and standing position and patient had no complaints of dizziness doing so. CBC was unremarkable, electrolytes revealed dehydration with an elevated BUN/ creatinine at 27/1.5, liver function tests revealed mild transaminitis, troponin negative Differential diagnoses considered, included but not limited to acute coronary syndrome, pulmonary embolism, aortic dissection, abdominal aortic aneurysm, sepsis, stroke, meningitis, encephalitis, pneumonia, appendicitis, cholecystitis , bowel obstruction, pyelonephritis, nephrolithiasis, cystitis, as well as metabolic, hematologic, and electrolyte abnormalities. As well as abscess, cellulitis, fractures, and dislocations. Patient feels much better at this time, and vital signs are normal, symptoms have improved. I did give strict instructions to return to the ED if symptoms continue or worsen, patient will otherwise follow-up with primary care physician. Patient understood instructions and agreed to plan. Departure Diagnosis: Primary Impression: Dehydration Additional Impressions: Near syncope Medication side effect Encounter type: initial encounter Qualified Code: T88.7XXA - Medication side effect, initial encounter Condition: Good ALVA GARZA MD Jul 23, 2016 14:20
[2016-07-23 14:22] LABS: ADD SCAN DIFF NO
[2016-07-23 14:32] LABS: CHLORIDE 106 mmol/L (97-110)
[2016-07-23 14:33] LABS: ALBUMIN 3.5 g/dl (3.3-4.9); POTASSIUM 4.7 mmol/L (3.5-5.1); SODIUM 136 mmol/L (135-144)
[2016-07-23 14:35] LABS: ANION GAP 13 (8-16); BILIRUBIN,INDIRECT 0.4 mg/dl (0-1.1); BILIRUBIN,TOTAL 0.4 mg/dl (0.2-1.3); CARBON DIOXIDE 22 mmol/L (21-31)
[2016-07-23 14:36] LABS: ALANINE AMINOTRANSFERASE 70 IU/L (13-69); ALBUMIN/GLOBULIN RATIO 0.83; ALKALINE PHOSPHATASE 90 IU/L (42-121); ASPARTATE AMINO TRANSFERASE 52 IU/L (15-46); BLOOD UREA NITROGEN 27 mg/dl (7-20); CALCIUM 8.4 mg/dl (8.4-10.2); GLUCOSE 106 mg/dl (70-220); TOTAL PROTEIN 7.7 g/dl (6.1-8.1)
[2016-07-23 14:54] LABS: BASOPHILS % 0.4 % (0.0-2.0); EOSINOPHILS # 0.2 10^3/ul (0.0-0.5); EOSINOPHILS % 3.1 % (0.0-7.0); LYMPHOCYTES # 1.7 10^3/ul (0.8-2.9); LYMPHOCYTES % 23.7 % (15.0-51.0); MEAN CORPUSCULAR HEMOGLOBIN 29.3 pg (29.0-33.0); MEAN CORPUSCULAR HGB CONC 31.4 g/dl (32.0-37.0); MEAN CORPUSCULAR VOLUME 93.3 fl (82.0-101.0); MEAN PLATELET VOLUME 10.3 fl (7.4-10.4); MONOCYTE # 1.1 10^3/ul (0.3-0.9); MONOCYTES % 14.8 % (0.0-11.0); NEUTROPHIL # 4.1 10^3/ul (1.6-7.5); NEUTROPHILS % 57.7 % (39.0-77.0); PLATELET COUNT 275 10^3/UL (140-415); RED BLOOD COUNT 3.75 10^6/ul (4.70-6.10); RED CELL DISTRIBUTION WIDTH 14.9 % (11.5-14.5); TROPONIN-I < 0.012 ng/ml (0.00-0.12); WHITE BLOOD COUNT 7.1 10^3/ul (4.8-10.8)
[2016-07-23 16:01] VITALS: BP 110/62; PULSE 90; RESP 18; TEMP 98
== END 2016-07-23 15:55 | disposition home or self-care (01) ==
LOC: E/R 13:23
DX: E86.0 Dehydration (principal); T46.5X5A Adverse effect of other antihypertensive drugs, initial encounter; I10 Essential (primary) hypertension; I25.2 Old myocardial infarction; Z79.01 Long term (current) use of anticoagulants; Z95.1 Presence of aortocoronary bypass graft; Z85.828 Personal history of other malignant neoplasm of skin; Z79.82 Long term (current) use of aspirin
CPT/HCPCS: 36415; 80053; 83690; 84484; 85025; 93005; J7030; Z7502

== ENCOUNTER 2016-07-26 17:22 | Inpatient (IN) | payer OTHER ==
[~2016-07-26] VITALS: Ht 185.4 cm; Wt 106.9 kg
[2016-07-26] MEDS ORDERED: SODIUM CHLORIDE 0.9% 1L BAG IV* STA (18:48)
[2016-07-26] MEDS ORDERED: CEFEPIME 2GM/50 ML (PMX) 50 ML IVPB STA (18:48)
[2016-07-26] MEDS ORDERED: ACETAMINOPHEN 500 MG TAB PO STA (18:48)
[2016-07-26] MEDS ORDERED: VANCOMYCIN 1 GM (PMX) 250 ML IVPB ONE (19:00)
[2016-07-26 19:43] LABS: ADD SCAN DIFF NO
[2016-07-26 19:44] LABS: BASOPHILS % 0.3 % (0.0-2.0); EOSINOPHILS # 0.2 10^3/ul (0.0-0.5); EOSINOPHILS % 1.3 % (0.0-7.0); HEMATOCRIT 35.6 % (42.0-52.0); LYMPHOCYTES # 0.7 10^3/ul (0.8-2.9); LYMPHOCYTES % 5.4 % (15.0-51.0); MEAN CORPUSCULAR HEMOGLOBIN 28.7 pg (29.0-33.0); MEAN CORPUSCULAR HGB CONC 30.9 g/dl (32.0-37.0); MONOCYTES % 8.2 % (0.0-11.0); NEUTROPHIL # 10.6 10^3/ul (1.6-7.5); NEUTROPHILS % 84.4 % (39.0-77.0); PLATELET COUNT 289 10^3/UL (140-415); RED BLOOD COUNT 3.83 10^6/ul (4.70-6.10); RED CELL DISTRIBUTION WIDTH 14.8 % (11.5-14.5); WHITE BLOOD COUNT 12.6 10^3/ul (4.8-10.8)
--- NOTE | 2016-07-26 19:45 | ERA ---
ER Documentation Chief Complaint Date/Time DATE: 07/26/16 TIME: 19:43 Chief Complaint chills; fever; 5 wks post bypass sx HPI 61-year-old male who is now 5 weeks status post cardiac bypass surgery who presents with fevers and chills. His CABG was complicated by a harvest graft site abscess 2 on the left lower extremity, complicated by sepsis. The patient was discharged on Augmentin and Levaquin but refused IV antibiotics. He presents with fevers and chills. He states the abscess is improving to the left leg. He denies any shortness of breath, no pleuritic pain, no abdominal pain no nausea or vomiting. He does describe generalized weakness and chills. ROS All systems reviewed and are negative except as per history of present illness. Medications Home Meds Active Scripts Amoxicillin/Potassium Clav (Amox-Clav 875-125 mg Tablet) 875-125 mg Tab, 1 TAB PO BID, #20 TAB Prov:MAREK BECERRA S. 07/21/16 Levofloxacin* (Levaquin*) 750 Mg Tablet, 750 MG PO DAILY, #10 TAB Prov:MAREK BECERRA S. 07/21/16 Lisinopril* (Lisinopril*) 10 Mg Tablet, 10 MG PO DAILY, #30 TAB 4 Refills Prov:MAREK BECERRA S. 06/24/16 Metoprolol Tartrate* (Lopressor*) 25 Mg Tab, 25 MG NGT BID, #60 TAB 4 Refills Prov:MAREK BECERRA S. 06/24/16 Clopidogrel Bisulfate (Clopidogrel) 75 Mg Tablet, 75 MG NGT DAILY, #30 TAB 8 Refills Prov:MAREK BECERRA S. 06/24/16 Atorvastatin* (Atorvastatin*) 80 Mg Tablet, 80 MG NGT HS, #30 TAB 4 Refills Prov:MAREK BECERRA S. 06/24/16 Aspirin (Aspirin) 81 Mg Chew, 81 MG NGT DAILY, #30 TAB 4 Refills Prov:MAREK BECERRA S. 06/24/16 Discontinued Reported Medications Cephalexin* (Cephalexin*) 500 Mg Capsule, 500 MG PO QID, #28 CAP 07/11/16 Allergies Allergies: Coded Allergies: No Known Allergy (Verified , 07/11/16) PMhx/Soc History of Surgery: Yes (CABG (2 WEEKS AGO), REMOVAL OF SKIN CANCER ON THE BACK , 2010 HERNIA REPAIR) Anesthesia Reaction: No Hx Neurological Disorder: No Hx Cardiac Disorders: Yes (HX OF [place], HTN, CABG. ) Hx Psychiatric Problems: No Hx Miscellaneous Medical Probl: No Hx Alcohol Use: No Hx Substance Use: No Hx Tobacco Use: No Smoking Status: Never smoker FmHx Family History: No diabetes Physical Exam Vitals Vital Signs Date Time Temp Pulse Resp B/P Pulse Ox O2 Delivery O2 Flow Rate FiO2 07/26/16 21:36 100.2 100 20 105/64 98 Room Air 07/26/16 19:54 101.2 91 20 131/71 98 Room Air 07/26/16 19:21 Nasal Cannula 07/26/16 17:39 101.8 101 18 136/61 99 Physical Exam General: Well developed, well nourished, no acute distress Head: Normocephalic, atraumatic. Eyes: Pupils equally reactive, EOM intact ENT: Moist mucous membranes Neck: Supple, no lymphadenopathy Respiratory: Lungs clear bilaterally, no distress Cardiovascular: Tachycardia, no murmurs, rubs, or gallops Abdominal: Soft, non-tender, non-distended, no peritoneal signs : Deferred MSK: No edema, no unilateral swelling, 5/5 strength Neurologic: Alert and oriented, moving all extremities, normal speech, no focal weakness, no cerebellar signs Skin: Abscess to the medial aspect of the left lower extremity is very well- appearing, well-healing and well packed with no significant drainage. Psych: Normal mood Result Diagram: 07/26/16191707/26/161917 Results 24 hrs Laboratory Tests Test 07/26/16 19:18 07/26/16 19:30 White Blood Count 12.610^3/ul Red Blood Count 3.8310^6/ul Hemoglobin 11.0g/dl Hematocrit 35.6% Mean Corpuscular Volume 93.0fl Mean Corpuscular Hemoglobin 28.7pg Mean Corpuscular Hemoglobin Concent 30.9g/dl Red Cell Distribution Width 14.8% Platelet Count 76157^3/UL Mean Platelet Volume 10.0fl Neutrophils % 84.4% Lymphocytes % 5.4% Monocytes % 8.2% Eosinophils % 1.3% Basophils % 0.3% Nucleated Red Blood Cells % 0.0/100WBC Neutrophils # 10.610^3/ul Lymphocytes # 0.710^3/ul Monocytes # 1.010^3/ul Eosinophils # 0.210^3/ul Basophils # 0.010^3/ul Nucleated Red Blood Cells # 0.010^3/ul Prothrombin Time 14.8Sec Prothrombin Time Ratio 1.2 INR International Normalized Ratio 1.16 Activated Partial Thromboplast Time 30.9Sec Sodium Level 138mmol/L Potassium Level 4.2mmol/L Chloride Level 101mmol/L Carbon Dioxide Level 25mmol/L Anion Gap 16 Blood Urea Nitrogen 25mg/dl Creatinine 1.25mg/dl Glucose Level 110mg/dl Lactic Acid Level 1.9mmol/L Calcium Level 8.7mg/dl Total Bilirubin 0.5mg/dl Direct Bilirubin 0.00mg/dl Indirect Bilirubin 0.5mg/dl Aspartate Amino Transf (AST/SGOT) 27IU/L Alanine Aminotransferase (ALT/SGPT) 43IU/L Alkaline Phosphatase 83IU/L Troponin I < 0.012ng/ml Total Protein 8.1g/dl Albumin 3.6g/dl Globulin 4.50g/dl Albumin/Globulin Ratio 0.80 Urine Color LT. YELLOW Urine Clarity CLEAR Urine pH 5.5 Urine Specific [place] 1.015 Urine Ketones NEGATIVE Urine Nitrite NEGATIVE Urine Bilirubin NEGATIVE Urine Urobilinogen 0.2 E.U./dL Urine Leukocyte Esterase TRACE Urine Microscopic RBC 0-2/HPF Urine Microscopic WBC 2-5/HPF Urine Squamous Epithelial Cells RARE Urine Bacteria RARE Urine Hemoglobin TRACE Urine Glucose NEGATIVE% Urine Total Protein NEGATIVE Current Medications Medications (Trade) Dose Ordered Sig/Ramesh Route PRN Reason Start Time Stop Time Status Last Admin Dose Admin Sodium Chloride 3330 ml 3,330 ml BOLUS OVER 2 HOURS STAT IV* 07/26/16 18:48 07/26/16 18:50 DC 07/26/16 19:34 Cefepime HCl 50 ml @ 100 mls/hr ONCE STAT IVPB 07/26/16 18:48 07/26/16 19:17 DC 07/26/16 19:35 Vancomycin HCl (Vancocin) 250 ml @ 125 mls/hr ONCE ONCE IVPB 07/26/16 19:00 07/26/16 20:59 DC 07/26/16 20:31 Acetaminophen (Tylenol Tab) 1,000 mg ONCE STAT PO 07/26/16 18:48 07/26/16 18:50 DC 07/26/16 19:35 Procedures/MDM EKG, MONITORS, & DIAGNOSTIC IMAGING: EKG: I reviewed and interpreted a 12-lead EKG. Rhythm: Sinus tachycardia Ectopy: None Intervals: No abnormalities ST segments: No elevations or depressions T waves: No contiguous inversions. Chest x-ray: I reviewed and interpreted a 1 view of the chest Mediastinum: No enlargement Cardiac silhouette: No cardiomegaly Airspace: Clear lung jones bilaterally without evidence of pneumothorax Bones: No evidence of fracture LAB INTERPRETATION: Subtle leukocytosis with left shift. Normal lactic acid. Minor renal insufficiency MEDICAL DECISION MAKING: The patient presents with fever and tachycardia with signs and symptoms concerning for sepsis. He had a recent hospitalization for complication of harvest vein site infection. However the harvest vein site is otherwise well- appearing I am not convinced that this is necessarily the source of infection. Is possibly related to the fact that the patient is only taking oral antibiotics and not IV antibiotics. Consider possible antibiotic failure. The patient will benefit from blood cultures, broad-spectrum antibiotics and inpatient hospitalization. ER COURSE: A 30 cc/kg bolus of saline was provided. Vancomycin and cefepime given after blood cultures. At this time the patient has no source. This is not consistent with meningitis. His fever is improved. The patient only has Sirs at this time. However given his complex history of postoperative infection I believe admission for culture monitoring, reevaluation by the surgeon would be most appropriate. Patient is agreeable. Patient is hemodynamically stable. No indication for central line. I kept the patient and/or family informed of laboratory and diagnostic imaging results throughout the emergency room course. DISPOSITION PLAN: Medical surgical admission for culture monitoring and management of Sirs CONSULTATION: Accepting care team and consultations: I discussed the current laboratory data, diagnostic imaging and emergency care provided. Admitting team: Dr. Culp Admitting team indication: Insurance directed Departure Diagnosis: Primary Impression: SIRS (systemic inflammatory response syndrome) Additional Impression: Acute renal insufficiency Condition: Stable GINGER DONG MD Jul 26, 2016 19:45
[2016-07-26 19:58] LABS: INR 1.16; PROTIME 14.8 Sec (12.2-14.2); PT RATIO 1.2
[2016-07-26 19:59] LABS: PARTIAL THROMBOPLASTIN TIME 30.9 Sec (25.0-35.0)
[2016-07-26 20:00] LABS: ADD UMIC YES; URINE BILIRUBIN (Dip) NEGATIVE (NEGATIVE); URINE BLOOD (Dip) TRACE (NEGATIVE); URINE COLOR LT. YELLOW (YELLOW); URINE GLUCOSE (Dip) NEGATIVE (NEGATIVE); URINE KETONES (Dip) NEGATIVE (NEGATIVE); URINE LEUKOCYTE ESTERASE (Dip) TRACE (NEGATIVE); URINE NITRITE (Dip) NEGATIVE (NEGATIVE); URINE TOTAL PROTEIN (Dip) NEGATIVE (NEGATIVE); URINE UROBILINOGEN (Dip) 0.2 E.U./dL (0.1-1.0)
[2016-07-26 20:03] LABS: ALBUMIN 3.6 g/dl (3.3-4.9); CHLORIDE 101 mmol/L (97-110); POTASSIUM 4.2 mmol/L (3.5-5.1); SODIUM 138 mmol/L (135-144)
[2016-07-26 20:06] LABS: ALANINE AMINOTRANSFERASE 43 IU/L (13-69); ALKALINE PHOSPHATASE 83 IU/L (42-121); ANION GAP 16 (8-16); ASPARTATE AMINO TRANSFERASE 27 IU/L (15-46); BILIRUBIN,INDIRECT 0.5 mg/dl (0-1.1); BILIRUBIN,TOTAL 0.5 mg/dl (0.2-1.3); BLOOD UREA NITROGEN 25 mg/dl (7-20); CALCIUM 8.7 mg/dl (8.4-10.2); CARBON DIOXIDE 25 mmol/L (21-31); CREATININE 1.25 mg/dl (0.61-1.24); GLUCOSE 110 mg/dl (70-220); TOTAL PROTEIN 8.1 g/dl (6.1-8.1)
[2016-07-26 20:13] LABS: TROPONIN-I < 0.012 ng/ml (0.00-0.12)
[2016-07-26 20:19] LABS: BACTERIA,URINE RARE; SQUAMOUS EPITHELIAL CELL,UR RARE; URINE RBCS 0-2 /HPF (0)
--- NOTE | 2016-07-26 21:09 | RADRPT ---
PROCEDURE: Portable chest x-ray. CLINICAL INDICATION: Dyspnea. TECHNIQUE: Portable AP view of the chest. COMPARISON: None. FINDINGS: No pulmonary edema or conolidation is identified. There is mild bibasilar atelectasis. The cardiac silhouette is magnified. There are aortic calcifications. The patient is status post median sternot geovanna. The right costophrenic angle is incompletely imaged. The left hemidiaphragm and costophrenic a ngle are not imaged. No pleural effusion is identified. There is no pneumothorax. IMPRESSION: 1. No evidence of acute cardiopulmonary disease. 2. Aortic atherosclerosis. 3. Median sternotomy. RPTAT: HTAR .Saravanan Cary MD, MD Date Time Electronically viewed and signed by .Saravanan Cary MD, on 07/26/2016 20:13 .R/
[2016-07-26] MEDS ORDERED: ACETAMINOPHEN 325 MG TAB PO PRN (22:00)
[2016-07-26] MEDS ORDERED: ONDANSETRON 4 MG INJ IV PRN (22:00)
[2016-07-26 23:13] VITALS: TEMP 99.9
[2016-07-27 00:24] VITALS: BP 120/56; RESP 16
[2016-07-27 00:59] VITALS: Ht 185.4 cm; Wt 106.9 kg
[2016-07-27] MEDS ORDERED: ONDANSETRON 4 MG INJ IV PRN (01:30)
[2016-07-27] MEDS ORDERED: morphine 4 MG/ML VIAL IV PRN (01:30)
[2016-07-27] MEDS ORDERED: VANCOMYCIN IV PER PHARMACY XX SCH (01:30)
[2016-07-27] MEDS ORDERED: ACETAMINOPHEN 325 MG TAB PO PRN (01:30)
[2016-07-27] MEDS ORDERED: VANCOMYCIN 1.5 GM in SOD CHLORIDE 0.9% 250 ML IVPB SCH (04:00)
--- NOTE | 2016-07-27 04:42 | HP ---
DATE OF ADMISSION: 07/26/2016 CHIEF COMPLAINT: Fever/chills and left leg infection. HISTORY OF PRESENT ILLNESS: The patient is a 61-year-old male with a history of [place], vfib, cardiac a rrest, status post coronary artery bypass graft about 5 weeks ago, complicated by harvest site absce ss on the left lower extremity, status post incision and drainage, history of afib, PE in 2009, smal l bowel obstruction, basal cell carcinoma of the midback status post excision in 2014, dyslipidemia, and cardiomyopathy with systolic dysfunction with EF of 45% who presented to the emergency departme with the above stated chief complaint. The patient was recently admitted here for 10 days and wa s actually discharged 5 days ago after he came in with an abscess of the left lower extremity at the CABG harvest site. At that time, he underwent incision and drainage on 07/15/2016. Culture grew E nterobacter and Enterococcus species, and he was subsequently discharged on Levaquin and Augmentin b ased on sensitivities. The patient now is coming back with fevers, chills, and also complaining of still having infection on his left lower extremity. When he presented to the ER, he was febrile with a temperature of 101.8, heart rate 101. His labs s how WBC of 12.6 from 7.1 three days ago. Creatinine 1.25. Chest x-ray shows no evidence of acute c ardiopulmonary disease, and urinalysis without clear UTI. Note that the patient was actually seen h ere in the ER 3 days ago which was 3 days after discharge. He came to the ER at that time after hav ing had a near syncope at home during a wound check to his left leg. At that time, his creatinine w as 1.5 from a normal value upon discharge, but now it trended down to like 1.25. When the patient presented today to the ER, he was given cefepime and vancomycin and now admitted fo r further treatment. His temperature is coming down and is currently is 99.9. REVIEW OF SYSTEMS: A 12-point review if performed and negative except as mentioned in the HPI. PAST MEDICAL HISTORY: As per HPI. PAST SURGICAL HISTORY: As per HPI including hiatal hernia repair. SOCIAL HISTORY: Denies tobacco, alcohol, or illicit drug use at this time, but he probably has a hi story of illicit drug use in the past. ALLERGIES: NO KNOWN DRUG ALLERGIES. HOME MEDICATIONS: Include recently discharged on 1. Amoxicillin. 2. Levaquin. 3. Plavix. 4. Lipitor. 5. Lisinopril. 6. Lopressor. 7. Aspirin. PHYSICAL EXAMINATION: VITAL SIGNS: Blood pressure 115/68, heart rate 90, respiratory rate 19, temperature 99.9, oxygen sa turation 98% on 2 liter. GENERAL: In no acute distress, slightly sleepy but arousable, alert and oriented x3. HEENT: No obvious head deformity. Pupils reactive to light. Extraocular muscles intact. HEART: Regular rate and rhythm. No extra sounds. LUNGS: Slightly decreased breath sounds at the bases. ABDOMEN: Soft, nontender, nondistended, positive bowel sounds. EXTREMITIES: Left lower extremity with draining wound. There is also a dressing in place. There i s discoloration on both his lower extremities. LABORATORY DATA: Pertinent positives as mentioned in the HPI. IMAGING: Chest x-ray shows no evidence of acute cardiopulmonary disease. IMPRESSION: 1. Sepsis, as evidenced by fever, leukocytosis, and tachycardia, secondary to left lower extremity wound. 2. Recent history of ventricular fibrillation, cardiac arrest, and myocardial infarction status pos t coronary artery bypass graft 5 weeks ago. 3. History of cardiomyopathy with systolic dysfunction with EF of 45%. 4. History of pulmonary embolism in 2009. 5. History of basal cell carcinoma of the midback, status post excision in 2014. 6. History of atrial fibrillation. 7. History of large ventral incisional hernia repair in 2009. 8. History of recent small bowel obstruction. 9. Acute kidney injury. PLAN: He will be placed on antibiotics based on previous sensitivities. We will send a blood cultu re, wound culture, and urine culture. We will place an ID consult, and we will notify cardiothoraci c surgeon who also did the I and D 10 days ago. He will be continued with his home medications with adjustment as needed. We will provide IV fluids and anticipate that his kidney function will yara lize pretty soon. If not, we will place a nephrology consult and we will obtain a renal ultrasound. Further workup and management per clinical course. Dictated By: RICARDA REYNOLDS MD for PHIL COYLE MD DA/NTS Conf#: [id number] DID#: [id number]
[2016-07-27 07:55] VITALS: BP 116/59; RESP 18
[2016-07-27] MEDS ORDERED: CEFEPIME 1GM/50 ML (PMX) 50 ML IVPB SCH ×2 (09:00)
[2016-07-27] MEDS ORDERED: HEPARIN 5,000 UNIT/0.5 ML VIAL SC SCH (09:00)
[2016-07-27 10:51] LABS: ADD SCAN DIFF NO
[2016-07-27 10:56] LABS: BASOPHILS % 0.3 % (0.0-2.0); EOSINOPHILS # 0.2 10^3/ul (0.0-0.5); EOSINOPHILS % 1.4 % (0.0-7.0); HEMATOCRIT 31.1 % (42.0-52.0); HEMOGLOBIN 9.7 g/dl (14.0-18.0); LYMPHOCYTES % 9.1 % (15.0-51.0); MEAN CORPUSCULAR HGB CONC 31.2 g/dl (32.0-37.0); MEAN CORPUSCULAR VOLUME 92.8 fl (82.0-101.0); MEAN PLATELET VOLUME 10.4 fl (7.4-10.4); MONOCYTE # 1.2 10^3/ul (0.3-0.9); MONOCYTES % 10.8 % (0.0-11.0); NEUTROPHIL # 8.6 10^3/ul (1.6-7.5); NEUTROPHILS % 77.9 % (39.0-77.0); PLATELET COUNT 237 10^3/UL (140-415); RED BLOOD COUNT 3.35 10^6/ul (4.70-6.10); RED CELL DISTRIBUTION WIDTH 14.7 % (11.5-14.5); WHITE BLOOD COUNT 11.1 10^3/ul (4.8-10.8)
[2016-07-27 11:07] LABS: ALBUMIN 2.7 g/dl (3.3-4.9); POTASSIUM 3.7 mmol/L (3.5-5.1)
[2016-07-27 11:09] LABS: CREATININE 1.15 mg/dl (0.61-1.24)
[2016-07-27 11:10] LABS: ALBUMIN/GLOBULIN RATIO 0.72; BILIRUBIN,INDIRECT 0.6 mg/dl (0-1.1); BILIRUBIN,TOTAL 0.6 mg/dl (0.2-1.3); CALCIUM 8.2 mg/dl (8.4-10.2); PHOSPHORUS 2.5 mg/dl (2.5-4.9); TOTAL PROTEIN 6.4 g/dl (6.1-8.1)
[2016-07-27 11:11] LABS: MAGNESIUM 1.7 mg/dl (1.7-2.5)
--- NOTE | 2016-07-27 11:17 | PN ---
Date/Time of Note Date/Time of Note DATE: 07/27/16 TIME: 11:13 Assessment/Plan VTE Prophylaxis VTE Prophylaxis Intervention: heparin Lines/Catheters IV C[facility]ter Type (from [facility]): Saline Lock Urinary Cath still in place: No Assessment/Plan Assessment/Plan 1. Sepsis, as evidenced by fever, leukocytosis, and tachycardia, secondary to left lower extremity wound infection 2. Recent history of ventricular fibrillation, cardiac arrest, and myocardial infarction status post coronary artery bypass graft 5 weeks ago. 3. History of cardiomyopathy with systolic dysfunction with EF of 45%. 4. History of pulmonary embolism in 2009. 5. History of basal cell carcinoma of the midback, status post excision in 2014. 6. History of atrial fibrillation. 7. History of large ventral incisional hernia repair in 2009. 8. History of recent small bowel obstruction. 9. Acute kidney injury. PLAN: IV abx vancomcyin and cefepime BP stable ID consutl to see pt Heparin for DVT prophylaxis will request to see this pt again Subjective 24 Hr Interval Summary Free Text/Dictation afebrile, c/o pain in leg Exam/Review of Systems Vital Signs Vitals Vital Signs Date Time Temp Pulse Resp B/P Pulse Ox O2 Delivery O2 Flow Rate FiO2 07/27/16 07:55 99.2 81 18 116/59 94 07/26/16 23:13 Nasal Cannula 2.0 Intake and Output 07/26/16 07/26/16 07/27/16 15:00 23:00 07:00 Intake Total 200 ml Output Total 400 ml Balance -200 ml Exam GENERAL: In no acute distress, slightly sleepy but arousable, alert and oriented x3. HEENT: No obvious head deformity. Pupils reactive to light. Extraocular muscles intact. HEART: Regular rate and rhythm. No extra sounds. LUNGS: Slightly decreased breath sounds at the bases. ABDOMEN: Soft, nontender, nondistended, positive bowel sounds. EXTREMITIES: Left lower extremity with draining wound. There is also a dressing in place. There is discoloration on both his lower extremities. Results Result Diagram: 07/27/16 1020 07/26/16 9498 Results 24 hrs Laboratory Tests Test 07/26/16 19:18 07/26/16 19:30 07/26/16 21:39 07/27/16 00:55 White Blood Count 12.6 #H Red Blood Count 3.83 L Hemoglobin 11.0 L Hematocrit 35.6 L Mean Corpuscular Volume 93.0 Mean Corpuscular Hemoglobin 28.7 L Mean Corpuscular Hemoglobin Concent 30.9 L Red Cell Distribution Width 14.8 H Platelet Count 289 Mean Platelet Volume 10.0 Neutrophils % 84.4 H Lymphocytes % 5.4 L Monocytes % 8.2 Eosinophils % 1.3 Basophils % 0.3 Nucleated Red Blood Cells % 0.0 Neutrophils # 10.6 H Lymphocytes # 0.7 L Monocytes # 1.0 H Eosinophils # 0.2 Basophils # 0.0 Nucleated Red Blood Cells # 0.0 Prothrombin Time 14.8 H Prothrombin Time Ratio 1.2 INR International Normalized Ratio 1.16 Activated Partial Thromboplast Time 30.9 Sodium Level 138 Potassium Level 4.2 Chloride Level 101 Carbon Dioxide Level 25 Anion Gap 16 Blood Urea Nitrogen 25 H Creatinine 1.25 H Glucose Level 110 Lactic Acid Level 1.9 < 0.5 L 0.7 Calcium Level 8.7 Total Bilirubin 0.5 Direct Bilirubin 0.00 Indirect Bilirubin 0.5 Aspartate Amino Transf (AST/SGOT) 27 Alanine Aminotransferase (ALT/SGPT) 43 Alkaline Phosphatase 83 Troponin I < 0.012 Total Protein 8.1 Albumin 3.6 Globulin 4.50 H Albumin/Globulin Ratio 0.80 Urine Color LT. YELLOW Urine Clarity CLEAR Urine pH 5.5 Urine Specific [place] 1.015 Urine Ketones NEGATIVE Urine Nitrite NEGATIVE Urine Bilirubin NEGATIVE Urine Urobilinogen 0.2 E.U./dL Urine Leukocyte Esterase TRACE H Urine Microscopic RBC 0-2 Urine Microscopic WBC 2-5 Urine Squamous Epithelial Cells RARE Urine Bacteria RARE Urine Hemoglobin TRACE Urine Glucose NEGATIVE Urine Total Protein NEGATIVE Test 07/27/16 10:20 White Blood Count 11.1 H Red Blood Count 3.35 L Hemoglobin 9.7 L Hematocrit 31.1 L Mean Corpuscular Volume 92.8 Mean Corpuscular Hemoglobin 29.0 Mean Corpuscular Hemoglobin Concent 31.2 L Red Cell Distribution Width 14.7 H Platelet Count 237 Mean Platelet Volume 10.4 Neutrophils % 77.9 H Lymphocytes % 9.1 L Monocytes % 10.8 Eosinophils % 1.4 Basophils % 0.3 Nucleated Red Blood Cells % 0.0 Neutrophils # 8.6 H Lymphocytes # 1.0 Monocytes # 1.2 H Eosinophils # 0.2 Basophils # 0.0 Nucleated Red Blood Cells # 0.0 Medications Medications Current Medications Morphine Sulfate (morphine) 3 mg Q4H PRN IV FOR PAIN; Start 07/27/16 at 01:30 Acetaminophen (Tylenol Tab) 650 mg Q6H PRN PO PAIN AND OR ELEVATED TEMP; Start 07/27/16 at 01:30 Ondansetron HCl (Zofran Inj) 4 mg Q6H PRN IV NAUSEA AND/OR VOMITING; Start 07/27 at 01:30 Heparin Sodium (Porcine) 5000 unit 5,000 unit BID SC Last administered on 08:28; Admin Dose 5,000 UNIT; Start 07/27/16 at 09:00 Cefepime HCl 50 ml @ 100 mls/hr Q12 IVPB Last administered on 07/27/16 08:20; Admin Dose 100 MLS/HR; Start 07/27/16 at 09:00 Vancomycin HCl/ Sodium Chloride (Vancocin/NS) 250 ml @ 83.333 mls/ hr Q12H IVPB ; Start 07/27/16 at 16:00 Miscellaneous Information (*Rx Drug Level Order Reminder*) VANCOMYCIN TROUGH 07/28 AT 1500 ONCE ONCE XX ; Start 07/28/16 at 15:00; Stop 07/28/16 at 15:01 EFREM RODRIGUEZ MD Jul 27, 2016 11:17
--- NOTE | 2016-07-27 11:52 | CONS ---
Date/Time of Note Date/Time of Note DATE: 07/27/16 TIME: 11:51 Assessment/Plan Assessment/Plan Chief Complaint/Hosp Course - sepsis due to recurrent abscess of LLE - recurrent multiple abscess of LLE s/p I&D; s/p bedside drainage of seromas by CTS in 06/2016 - h/o myocardial infarction/VF arrest, status post CABG x4. s/p vein harvest of LLE - History of atrial fibrillation. - Chronic cardiomyopathy. - Atrial fibrillation/atrial flutter. - h/o MRSA nares. - Anemia. - Pulmonary embolism in 2009. - h/o SBO - h/o basal cell carcinoma of the mid back, s/p excision in 2014. recommendations - await the wound culture result - ordered repeat CT with contrast of LLE to r/o abscess - continue IV vancomycin and cefepime empirically - Pt will need IV antibiotics upon discharge. Pt agreed. management d/w Pt, his RN, Dr. Rodriguez Problems: Consultation Date/Type/Reason Admit Date/Time Jul 26, 2016 at 22:01 Date of Consultation: Jul 27, 2016 Type of Consultation: ID Reason for Consultation skin and soft tissue infection of L calf Referring Provider: EFREM RODRIGUEZ MD Hx of Present Illness This is a 61 yo male with h/o CABG and vein harvest from LLE. Pt was admitted in 06/2016 due to complex abscess of LLE. Pt underwent I&D at ER and bedside drainage. The abscess culture grew CoNs and enterococci. Pt took IV vancomycin , levo and metronidazole. I recommended IV antibiotic via PICC upon discharge. Pt refused this, and instead took levofloxacin and Augmentin upon discharge. Pt was complaint with these antibiotics but the wound remained open and purulent. As a result, Pt came back to ER. Pt denies pain and is ambulatory. Dr. Rodriguez requested ID consultation on this Pt. Constitutional: chills Eyes: no complaints ENT: no complaints Respiratory: no complaints Cardiovascular: no complaints Gastrointestinal: no complaints Genitourinary: no complaints Musculoskeletal: swelling Skin: other (purulence from wound of L calf), skin lesions Neurologic: no complaints Past Medical History Medical History: congestive heart failure, coronary artery disease, deep vein thrombosis, hypertension, other (A fib, cardiomyopathy and VF, PE, basal cell CA , PE) Past Surgical History Past Surgical Hx: coronary bypass surgery Social History Smoking Status: Never smoker Exam/Review of Systems Vital Signs Vitals Vital Signs Date Time Temp Pulse Resp B/P Pulse Ox O2 Delivery O2 Flow Rate FiO2 07/27/16 07:55 99.2 81 18 116/59 94 07/26/16 23:13 Nasal Cannula 2.0 Intake and Output 07/26/16 07/26/16 07/27/16 15:00 23:00 07:00 Intake Total 200 ml Output Total 400 ml Balance -200 ml Exam Constitutional: alert, oriented, well developed Psych: nl mood/affect, no complaints Head: atraumatic, normocephalic Eyes: nl conjunctiva, nl lids, nl sclera ENMT: nl external ears & nose, nl nasal mucosa & septum Neck: supple Respiratory: clear to auscultation, normal air movement Cardiovascular: nl pulses, regular rate and rhythm Gastrointestinal: non-tender, soft Musculoskeletal: swelling (L calf) Extremities: No edema Neurological: 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-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 intact, nl mental status, nl speech, nl strength Skin: rash or lesions (oepn wound with fluctuance on L calf, mildly TTP) Results Result Diagram: 07/27/16 1020 07/27/16 1020 Results 24 hrs Laboratory Tests Test 07/26/16 19:18 07/26/16 19:30 07/26/16 21:39 07/27/16 00:55 White Blood Count 12.6 #H Red Blood Count 3.83 L Hemoglobin 11.0 L Hematocrit 35.6 L Mean Corpuscular Volume 93.0 Mean Corpuscular Hemoglobin 28.7 L Mean Corpuscular Hemoglobin Concent 30.9 L Red Cell Distribution Width 14.8 H Platelet Count 289 Mean Platelet Volume 10.0 Neutrophils % 84.4 H Lymphocytes % 5.4 L Monocytes % 8.2 Eosinophils % 1.3 Basophils % 0.3 Nucleated Red Blood Cells % 0.0 Neutrophils # 10.6 H Lymphocytes # 0.7 L Monocytes # 1.0 H Eosinophils # 0.2 Basophils # 0.0 Nucleated Red Blood Cells # 0.0 Prothrombin Time 14.8 H Prothrombin Time Ratio 1.2 INR International Normalized Ratio 1.16 Activated Partial Thromboplast Time 30.9 Sodium Level 138 Potassium Level 4.2 Chloride Level 101 Carbon Dioxide Level 25 Anion Gap 16 Blood Urea Nitrogen 25 H Creatinine 1.25 H Glucose Level 110 Lactic Acid Level 1.9 < 0.5 L 0.7 Calcium Level 8.7 Total Bilirubin 0.5 Direct Bilirubin 0.00 Indirect Bilirubin 0.5 Aspartate Amino Transf (AST/SGOT) 27 Alanine Aminotransferase (ALT/SGPT) 43 Alkaline Phosphatase 83 Troponin I < 0.012 Total Protein 8.1 Albumin 3.6 Globulin 4.50 H Albumin/Globulin Ratio 0.80 Urine Color LT. YELLOW Urine Clarity CLEAR Urine pH 5.5 Urine Specific [place] 1.015 Urine Ketones NEGATIVE Urine Nitrite NEGATIVE Urine Bilirubin NEGATIVE Urine Urobilinogen 0.2 E.U./dL Urine Leukocyte Esterase TRACE H Urine Microscopic RBC 0-2 Urine Microscopic WBC 2-5 Urine Squamous Epithelial Cells RARE Urine Bacteria RARE Urine Hemoglobin TRACE Urine Glucose NEGATIVE Urine Total Protein NEGATIVE Test 07/27/16 10:20 White Blood Count 11.1 H Red Blood Count 3.35 L Hemoglobin 9.7 L Hematocrit 31.1 L Mean Corpuscular Volume 92.8 Mean Corpuscular Hemoglobin 29.0 Mean Corpuscular Hemoglobin Concent 31.2 L Red Cell Distribution Width 14.7 H Platelet Count 237 Mean Platelet Volume 10.4 Neutrophils % 77.9 H Lymphocytes % 9.1 L Monocytes % 10.8 Eosinophils % 1.4 Basophils % 0.3 Nucleated Red Blood Cells % 0.0 Neutrophils # 8.6 H Lymphocytes # 1.0 Monocytes # 1.2 H Eosinophils # 0.2 Basophils # 0.0 Nucleated Red Blood Cells # 0.0 Sodium Level 139 Potassium Level 3.7 Chloride Level 106 Carbon Dioxide Level 23 Anion Gap 14 Blood Urea Nitrogen 18 Creatinine 1.15 Glucose Level 121 Calcium Level 8.2 L Phosphorus Level 2.5 Magnesium Level 1.7 Total Bilirubin 0.6 Direct Bilirubin 0.00 Indirect Bilirubin 0.6 Aspartate Amino Transf (AST/SGOT) 18 Alanine Aminotransferase (ALT/SGPT) 35 Alkaline Phosphatase 60 Total Protein 6.4 # Albumin 2.7 L Globulin 3.70 H Albumin/Globulin Ratio 0.72 Medications Medications Current Medications Morphine Sulfate (morphine) 3 mg Q4H PRN IV FOR PAIN; Start 07/27/16 at 01:30 Acetaminophen (Tylenol Tab) 650 mg Q6H PRN PO PAIN AND OR ELEVATED TEMP; Start 07/27/16 at 01:30 Ondansetron HCl (Zofran Inj) 4 mg Q6H PRN IV NAUSEA AND/OR VOMITING; Start 07/27 at 01:30 Heparin Sodium (Porcine) 5000 unit 5,000 unit BID SC Last administered on 08:28; Admin Dose 5,000 UNIT; Start 07/27/16 at 09:00 Cefepime HCl 50 ml @ 100 mls/hr Q12 IVPB Last administered on 07/27/16 08:20; Admin Dose 100 MLS/HR; Start 07/27/16 at 09:00 Vancomycin HCl/ Sodium Chloride (Vancocin/NS) 250 ml @ 83.333 mls/ hr Q12H IVPB ; Start 07/27/16 at 16:00 Miscellaneous Information (*Rx Drug Level Order Reminder*) VANCOMYCIN TROUGH 07/28 AT 1500 ONCE ONCE XX ; Start 07/28/16 at 15:00; Stop 07/28/16 at 15:01 Heparin Sodium (Porcine) (Heparin (5000 Units/0.5 ml)) 5,000 unit BID SC ; Start 07/27/16 at 21:00 NATASHA LUIS M.D. Jul 27, 2016 11:52
[2016-07-27] MEDS ORDERED: SOD CHLORIDE 0.9% 100 ML ONE (13:10)
[2016-07-27] MEDS ORDERED: IOHEXOL 300MG/ML 30 ML BTL ONE (13:10)
--- NOTE | 2016-07-27 14:58 | PN ---
Date/Time of Note Date/Time of Note DATE: 07/27/16 TIME: 14:56 Assessment/Plan Lines/Catheters IV Catheter Type (from Nrs): Saline Lock [facility] in Place (from Nrs): No Assessment/Plan Assessment/Plan admitted with fevers, has vein harvest site cellulitis. LLE with induration, no obvious fluid collection, MRI pending He has poor circulation, both venous insufficiency and arterial insuff. Recommend IV abx. Will follow up on MRI Exam/Review of Systems Vital Signs Vitals Vital Signs Date Time Temp Pulse Resp B/P Pulse Ox O2 Delivery O2 Flow Rate FiO2 07/27/16 07:55 99.2 81 18 116/59 94 07/26/16 23:13 Nasal Cannula 2.0 Intake and Output 07/26/16 07/26/16 07/27/16 15:00 23:00 07:00 Intake Total 200 ml Output Total 400 ml Balance -200 ml Results Result Diagram: 07/27/16 1020 07/27/16 1020 TITA CIFUENTES MD Jul 27, 2016 14:58
--- NOTE | 2016-07-27 17:01 | RADRPT ---
PROCEDURE: CT - left Lower Extremity without Contrast. CLINICAL INDICATION: Rule out abscess. TECHNIQUE: The scan of the left lower extremity was performed utilizing a multidetector CT scanne r. Direct thin section helical, thin section axial and coronal sections were obtained without contra st. The total CTDIvol is 4.2 mGy and the DLP is 275 mGy-cm. One or more of the following dose reduction techniques were used: - Automated exposure control. - Adjustment of the mA and/or kV according to patient size. Use of iterative reconstruction technique. COMPARISON: No. FINDINGS: A small 1.6 AP by 1.3 cm transverse by 2.9 cm sagittal abscess is noted over the medial aspect of the left thigh in the subcutaneous fat about 16 cm superior to the medial tibial plateau. There is a second subcutaneous abscess near the skin surface measuring 1.2 cm AP by 1.1 cm transvers e by 2.6 cm in length resting about 2.6 cm superior to the medial tibial plateau. A larger abscess with a thicker surrounding capsule is identified over the medial lower left knee me asuring about 7.3 cm in length by 1.5 centimeters in width. This contains some packing material and associated with a skin laceration or ulceration. The soft tissues and bony elements are otherwise unremarkable. No joint space effusion is noted. T he femur, tibia and fibula are intact without evidence of osteomyelitis. There are vascular calcifications in the distal popliteal artery and some of the trifurcation vessel s. There is soft tissue swelling around the circumference of the mid calf, ankle and foot which may be the result of a cellulitis were soft tissue edema from other cause. The bones of the foot are u nremarkable. IMPRESSION: 1. 2.9 cm of 1 x 1.6 x 1.3 cm subcutaneous abscess in the medial upper left thigh about 16 cm superi or to the medial tibial patella. 2. Small 1.2 x 1.1 x 2.6 cm in length subcutaneous abscess in the medial upper left knee about 4.6 cm superior to the medial tibial plateau. 3. Packing material is noted within a abscess along the medial lower portion of the left knee measur ing 7.3 cm in length by 1.5 cm in width by up to 3.1 cm AP including the abscess wall. 4. There is no radiographic evidence of osteomyelitis. 5. Diffuse soft tissue swelling of the mid left calf, ankle and foot. RPTAT:AAJJ Ming Villarreal Physician Date Time Electronically viewed and signed by Ming Villarreal Physician on 07/27/2016 17:01 MARY/
[2016-07-27] MEDS: VANCOMYCIN 1.25 GM in SOD CHLORIDE 0.9% 250 ML IVPB SCH (17:39)
[2016-07-27 19:00] VITALS: BP 120/56; RESP 20
[2016-07-27] MEDS: CEFEPIME 2GM/50 ML (PMX) 50 ML IVPB SCH (20:49)
[2016-07-27] MEDS: HEPARIN 5,000 UNIT/0.5 ML VIAL SC SCH (20:59)
[2016-07-28] MEDS: VANCOMYCIN 1.25 GM in SOD CHLORIDE 0.9% 250 ML IVPB SCH ×2 (04:06→21:18)
--- NOTE | 2016-07-28 06:57 | PN ---
Date/Time of Note Date/Time of Note DATE: 07/28/16 TIME: 06:55 Assessment/Plan Lines/Catheters IV C[facility] Type (from [facility]): Saline Lock [facility] in [facility] (from [facility]): No Assessment/Plan Assessment/Plan ct shows small seromas in left thigh, no evidence of abscess continue packing open wound and IV abx Exam/Review of Systems Vital Signs Vitals Vital Signs Date Time Temp Pulse Resp B/P Pulse Ox O2 Delivery O2 Flow Rate FiO2 07/28/16 00:00 99.0 07/27/16 19:00 83 20 120/56 96 07/26/16 23:13 Nasal Cannula 2.0 Intake and Output 07/27/16 07/27/16 07/28/16 15:00 23:00 07:00 Intake Total 300 ml 1260 ml 1260 ml Output Total 1000 ml 900 ml Balance 300 ml 260 ml 360 ml Results Result Diagram: 07/27/16 1020 07/27/16 1020 TITA CIFUENTES MD Jul 28, 2016 06:56
[2016-07-28 08:05] VITALS: BP 122/59; RESP 20
[2016-07-28] MEDS: HEPARIN 5,000 UNIT/0.5 ML VIAL SC SCH ×2 (09:00→21:25)
[2016-07-28] MEDS: CEFEPIME 2GM/50 ML (PMX) 50 ML IVPB SCH ×2 (09:00→20:15)
--- NOTE | 2016-07-28 09:51 | CONS ---
Date/Time of Note Date/Time of Note DATE: 07/28/16 TIME: 09:47 Assessment/Plan Assessment/Plan Chief Complaint/Hosp Course - sepsis due to recurrent abscess of LLE - 2.9 cm of 1 x 1.6 x 1.3 cm subcutaneous abscess in the medial upper L thigh ~ 16 cm superior to the medial tibial patella. - 1.2 x 1.1 x 2.6 cm subcutaneous abscess in the medial upper L knee ~4.6 cm superior to the medial tibial plateau. - recurrent multiple abscess of LLE s/p I&D; s/p bedside drainage of seromas by CTS in 06/2016 - h/o myocardial infarction/VF arrest, status post CABG x4. s/p vein harvest of LLE - History of atrial fibrillation. - Chronic cardiomyopathy. - Atrial fibrillation/atrial flutter. - h/o MRSA nares. - Anemia. - Pulmonary embolism in 2009. - h/o SBO - h/o basal cell carcinoma of the mid back, s/p excision in 2014. recommendations - await the wound culture result - ordered soft tissue ultrasound to see if any abscess pockets may be drained by ultra-sound guidance - continue IV vancomycin and cefepime empirically; I recommend IV antibiotics upon discharge. Pt agreed. management d/w Pt, his Problems: Consultation Date/Type/Reason Admit Date/Time Jul 26, 2016 at 22:01 Initial Consult Date 07/27/16 Type of Consultation: ID Referring Provider: EFREM RODRIGUEZ MD 24 HR Interval Summary Constitutional: no complaints Detailed Summary Eyes: no complaints ENT: no complaints Respiratory: no complaints Cardiovascular: no complaints Gastrointestinal: no complaints Genitourinary: no complaints Musculoskeletal: other (denies pain), swelling Skin: skin lesions (open wound that is packed with packing material) Exam/Review of Systems Vital Signs Vitals Vital Signs Date Time Temp Pulse Resp B/P Pulse Ox O2 Delivery O2 Flow Rate FiO2 07/28/16 08:05 98.7 68 20 122/59 96 07/26/16 23:13 Nasal Cannula 2.0 Intake and Output 07/27/16 07/27/16 07/28/16 15:00 23:00 07:00 Intake Total 300 ml 1260 ml 1260 ml Output Total 1000 ml 900 ml Balance 300 ml 260 ml 360 ml Exam Constitutional: alert, oriented, well developed Psych: nl mood/affect, no complaints Head: normocephalic Eyes: nl conjunctiva, nl lids ENMT: nl external ears & nose, nl nasal mucosa & septum Neck: supple Musculoskeletal: swelling (L calf, fluctuant. packed and dressed) Extremities: No edema Results Result Diagram: 07/27/16 1020 07/27/16 1020 Results 24 hrs Laboratory Tests Test 07/27/16 10:20 White Blood Count 11.1 H Red Blood Count 3.35 L Hemoglobin 9.7 L Hematocrit 31.1 L Mean Corpuscular Volume 92.8 Mean Corpuscular Hemoglobin 29.0 Mean Corpuscular Hemoglobin Concent 31.2 L Red Cell Distribution Width 14.7 H Platelet Count 237 Mean Platelet Volume 10.4 Neutrophils % 77.9 H Lymphocytes % 9.1 L Monocytes % 10.8 Eosinophils % 1.4 Basophils % 0.3 Nucleated Red Blood Cells % 0.0 Neutrophils # 8.6 H Lymphocytes # 1.0 Monocytes # 1.2 H Eosinophils # 0.2 Basophils # 0.0 Nucleated Red Blood Cells # 0.0 Sodium Level 139 Potassium Level 3.7 Chloride Level 106 Carbon Dioxide Level 23 Anion Gap 14 Blood Urea Nitrogen 18 Creatinine 1.15 Glucose Level 121 Calcium Level 8.2 L Phosphorus Level 2.5 Magnesium Level 1.7 Total Bilirubin 0.6 Direct Bilirubin 0.00 Indirect Bilirubin 0.6 Aspartate Amino Transf (AST/SGOT) 18 Alanine Aminotransferase (ALT/SGPT) 35 Alkaline Phosphatase 60 Total Protein 6.4 # Albumin 2.7 L Globulin 3.70 H Albumin/Globulin Ratio 0.72 Medications Medications Current Medications Morphine Sulfate (morphine) 3 mg Q4H PRN IV FOR PAIN; Start 07/27/16 at 01:30 Acetaminophen (Tylenol Tab) 650 mg Q6H PRN PO PAIN AND OR ELEVATED TEMP Last administered on 07/27/16 17:50; Admin Dose 650 MG; Start 07/27/16 at 01:30 Ondansetron HCl 4 mg 4 mg Q6H PRN IV NAUSEA AND/OR VOMITING; Start 07/27/16 at 01:30 Vancomycin HCl/ Sodium Chloride (Vancocin/NS) 250 ml @ 83.333 mls/ hr Q12H IVPB Last administered on 07/28/16 04:06; Admin Dose 83.333 MLS/HR; Start at 16:00 Miscellaneous Information (*Rx Drug Level Order Reminder*) VANCOMYCIN TROUGH 07/28 AT 1500 ONCE ONCE XX ; Start 07/28/16 at 15:00; Stop 07/28/16 at 15:01 Heparin Sodium (Porcine) 5000 unit 5,000 unit BID SC Last administered on 20:59; Admin Dose 5,000 UNIT; Start 07/27/16 at 21:00 Cefepime HCl (Maxipime 2gm/50 ml (Pmx)) 50 ml @ 100 mls/hr Q12 IVPB Last administered on 07/27/16 20:49; Admin Dose 100 MLS/HR; Start 07/27/16 at 21:00 NATASHA LUIS M.D. Jul 28, 2016 09:51
--- NOTE | 2016-07-28 16:46 | RADRPT ---
PROCEDURE: Ultrasound of the soft tissues of the left calf. CLINICAL INDICATION: Palpable lesion in the left calf superiorly medially. TECHNIQUE: High-resolution sonography of the left calf superiorly medially at the site of the palp able lesion was performed in the axial and sagittal planes. COMPARISON: None FINDINGS: At the site of the palpable lesion, there is a hypoechoic irregular subcutaneous mass measuring 1.7 x 4.7 x 5.8 cm in AP, transverse, and cranial caudal dimensions. There is no other abnormality at the site of the palpable lesion. IMPRESSION: 1. Hypoechoic irregular subcutaneous mass measuring 1.7 x 4.7 x 5.8 cm at the site of the palpable lesion in the left calf superiorly medially. This may be due to a fluid collection. 2. Aspiration with ultrasound guidance was subsequently performed. Only minimal bloody fluid was a spirated. RPTAT: QQ .Steve Lr MD, MD Date Time Electronically viewed and signed by .Steve Lr MD, on 07/28/2016 16:46 .R/
[2016-07-28] MEDS ORDERED: LIDOCAINE 1% (MPF) 5 ML VIAL ONE (16:58)
--- NOTE | 2016-07-28 17:15 | RADRPT ---
PROCEDURE: Ultrasound guided aspiration of left calf fluid collection. CLINICAL INDICATION: Left upper calf medial fluid collection. TECHNIQUE: Prior to the procedure, informed consent was obtained. Risks including bleeding and in fection were explained to the the patient. The patient understood and once willing to proceed. A p rocedural pause was performed. The patient's name, date of , and procedure to be performed wer e verified. Using local anesthetic, sterile technique and ultrasound guidance, a 21 gauge needle was advanced in to the fluid collection in the left upper calf. Only minimal fluid was aspirated. Therefore, a 16- gauge needle was then advanced into the fluid collection in the left upper calf. Several passes wer e made into different regions and again only minimal fluid was obtained measuring approximately 1 ml . The patient tolerated the procedure well. Fluid was sent for laboratory analysis. COMPARISON: CT scan dated 07/27/2016. FINDINGS: Images demonstrate the fluid collection in the left upper calf medially. Subsequent images demonstr ate the needles within the fluid collection. IMPRESSION: 1. Only minimal fluid obtained from the fluid collection in the left upper calf medially indicating it may be organized. RPTAT: QQ .Steve Lr MD, Date Time Electronically viewed and signed by .Steve Lr MD, on 07/28/2016 17:15 .R/
--- NOTE | 2016-07-28 17:29 | PN ---
Date/Time of Note Date/Time of Note DATE: 07/28/16 TIME: 17:28 Assessment/Plan VTE Prophylaxis VTE Prophylaxis Intervention: heparin Lines/Catheters IV Catheter Type (from Nrs): Saline Lock Urinary Cath still in place: No Assessment/Plan Assessment/Plan 1. Sepsis, as evidenced by fever, leukocytosis, and tachycardia, secondary to left lower extremity wound infection 2. Recent history of ventricular fibrillation, cardiac arrest, and myocardial infarction status post coronary artery bypass graft 5 weeks ago. 3. History of cardiomyopathy with systolic dysfunction with EF of 45%. 4. History of pulmonary embolism in 2009. 5. History of basal cell carcinoma of the midback, status post excision in 2014. 6. History of atrial fibrillation. 7. History of large ventral incisional hernia repair in 2009. 8. History of recent small bowel obstruction. 9. Acute kidney injury. PLAN: IV abx vancomcyin and cefepime, plan for US guided aspiration today BP stable ID following, CT surgeon also consulted on the case Heparin for DVT prophylaxis Subjective 24 Hr Interval Summary Free Text/Dictation c/o pain, CT scan ordered for today Exam/Review of Systems Vital Signs Vitals Vital Signs Date Time Temp Pulse Resp B/P Pulse Ox O2 Delivery O2 Flow Rate FiO2 07/28/16 08:05 98.7 68 20 122/59 96 07/26/16 23:13 Nasal Cannula 2.0 Intake and Output 07/27/16 07/27/16 07/28/16 15:00 23:00 07:00 Intake Total 300 ml 1260 ml 1260 ml Output Total 1000 ml 900 ml Balance 300 ml 260 ml 360 ml Exam GENERAL: In no acute distress, slightly sleepy but arousable, alert and oriented x3. HEENT: No obvious head deformity. Pupils reactive to light. Extraocular muscles intact. HEART: Regular rate and rhythm. No extra sounds. LUNGS: Slightly decreased breath sounds at the bases. ABDOMEN: Soft, nontender, nondistended, positive bowel sounds. EXTREMITIES: Left lower extremity with draining wound. There is also a dressing in place. There is discoloration on both his lower extremities. Results Result Diagram: 07/27/16 1020 07/27/16 1020 Medications Medications Current Medications Morphine Sulfate (morphine) 3 mg Q4H PRN IV FOR PAIN; Start 07/27/16 at 01:30 Acetaminophen (Tylenol Tab) 650 mg Q6H PRN PO PAIN AND OR ELEVATED TEMP Last administered on 07/27/16 17:50; Admin Dose 650 MG; Start 07/27/16 at 01:30 Ondansetron HCl 4 mg 4 mg Q6H PRN IV NAUSEA AND/OR VOMITING; Start 07/27/16 at 01:30 Vancomycin HCl/ Sodium Chloride (Vancocin/NS) 250 ml @ 83.333 mls/ hr Q12H IVPB Last administered on 07/28/16 04:06; Admin Dose 83.333 MLS/HR; Start at 16:00 Heparin Sodium (Porcine) 5000 unit 5,000 unit BID SC Last administered on 09:00; Admin Dose 5,000 UNIT; Start 07/27/16 at 21:00 Cefepime HCl (Maxipime 2gm/50 ml (Pmx)) 50 ml @ 100 mls/hr Q12 IVPB Last administered on 07/28/16 09:00; Admin Dose 100 MLS/HR; Start 07/27/16 at 21:00 EFREM RODRIGUEZ MD Jul 28, 2016 17:29
[2016-07-28 20:07] VITALS: BP 170/77; RESP 20
[2016-07-28 21:15] VITALS: BP 130/65; PULSE 80; RESP 18
[2016-07-29 06:15] LABS: ADD SCAN DIFF NO
[2016-07-29 06:20] LABS: BASOPHILS % 0.4 % (0.0-2.0); EOSINOPHILS # 0.4 10^3/ul (0.0-0.5); EOSINOPHILS % 5.3 % (0.0-7.0); HEMATOCRIT 32.5 % (42.0-52.0); LYMPHOCYTES # 1.8 10^3/ul (0.8-2.9); MEAN CORPUSCULAR HEMOGLOBIN 28.4 pg (29.0-33.0); MEAN CORPUSCULAR HGB CONC 30.8 g/dl (32.0-37.0); MEAN CORPUSCULAR VOLUME 92.3 fl (82.0-101.0); MEAN PLATELET VOLUME 10.4 fl (7.4-10.4); MONOCYTES % 14.2 % (0.0-11.0); NEUTROPHIL # 3.7 10^3/ul (1.6-7.5); NEUTROPHILS % 53.8 % (39.0-77.0); PLATELET COUNT 279 10^3/UL (140-415); RED BLOOD COUNT 3.52 10^6/ul (4.70-6.10); RED CELL DISTRIBUTION WIDTH 14.8 % (11.5-14.5); WHITE BLOOD COUNT 6.8 10^3/ul (4.8-10.8)
[2016-07-29 06:27] LABS: INR 1.1; PARTIAL THROMBOPLASTIN TIME 35.6 Sec (25.0-35.0); PROTIME 14.2 Sec (12.2-14.2); PT RATIO 1.1
[2016-07-29 06:34] LABS: POTASSIUM 3.6 mmol/L (3.5-5.1)
[2016-07-29 06:37] LABS: CALCIUM 8.3 mg/dl (8.4-10.2); CREATININE 1.23 mg/dl (0.61-1.24)
[2016-07-29 07:47] VITALS: BP 122/70; RESP 19
[2016-07-29] MEDS: CEFEPIME 2GM/50 ML (PMX) 50 ML IVPB SCH ×2 (08:15→20:42)
[2016-07-29] MEDS: VANCOMYCIN 1.25 GM in SOD CHLORIDE 0.9% 250 ML IVPB SCH ×2 (08:15→21:37)
[2016-07-29] MEDS: HEPARIN 5,000 UNIT/0.5 ML VIAL SC SCH ×2 (08:19→21:33)
--- NOTE | 2016-07-29 10:32 | CONS ---
Date/Time of Note Date/Time of Note DATE: 07/29/16 TIME: 10:30 Consult Date/Type/Reason Admit Date/Time Jul 26, 2016 at 22:01 Initial Consult Date 07/27/16 Type of Consultation: ID Ordering Provider: EFREM RODRIGUEZ MD Subjective s/p JOSE MANUEL guided drainage on 07/28/2016 Objective Vital Signs Date Time Temp Pulse Resp B/P Pulse Ox O2 Delivery O2 Flow Rate FiO2 07/29/16 07:47 98.7 73 19 122/70 97 07/28/16 21:15 Room Air 07/26/16 23:13 2.0 Intake and Output 07/28/16 07/28/16 07/29/16 15:00 23:00 07:00 Intake Total 250 ml 1460 ml 1100 ml Output Total 1875 ml 1100 ml Balance 250 ml -415 ml 0 ml Exam GEN: NAD, sitting on a chair HEENT: anicteric neck: supple LLE: swollen, the wound is dressed with serosanguinous fluid ext: lymphadenitis of LLE skin: chronic discoloration of lymphadenitis of LLE Results/Medications Result Diagram: 07/29/16 0535 07/29/16 0523 Results 24 hrs Laboratory Tests Test 07/28/16 17:40 07/29/16 05:23 07/29/16 05:35 Vancomycin Level Trough 12.7 Sodium Level 141 Potassium Level 3.6 Chloride Level 110 Carbon Dioxide Level 22 Anion Gap 13 Blood Urea Nitrogen 16 Creatinine 1.23 Glucose Level 109 Calcium Level 8.3 L White Blood Count 6.8 # Red Blood Count 3.52 L Hemoglobin 10.0 L Hematocrit 32.5 L Mean Corpuscular Volume 92.3 Mean Corpuscular Hemoglobin 28.4 L Mean Corpuscular Hemoglobin Concent 30.8 L Red Cell Distribution Width 14.8 H Platelet Count 279 Mean Platelet Volume 10.4 Neutrophils % 53.8 Lymphocytes % 26.0 Monocytes % 14.2 H Eosinophils % 5.3 Basophils % 0.4 Nucleated Red Blood Cells % 0.0 Neutrophils # 3.7 Lymphocytes # 1.8 Monocytes # 1.0 H Eosinophils # 0.4 Basophils # 0.0 Nucleated Red Blood Cells # 0.0 Prothrombin Time 14.2 Prothrombin Time Ratio 1.1 INR International Normalized Ratio 1.10 Activated Partial Thromboplast Time 35.6 H Medications Current Medications Morphine Sulfate (morphine) 3 mg Q4H PRN IV FOR PAIN; Start 07/27/16 at 01:30 Acetaminophen (Tylenol Tab) 650 mg Q6H PRN PO PAIN AND OR ELEVATED TEMP Last administered on 07/27/16 17:50; Admin Dose 650 MG; Start 07/27/16 at 01:30 Ondansetron HCl (Zofran Inj) 4 mg Q6H PRN IV NAUSEA AND/OR VOMITING; Start 07/27 at 01:30 Heparin Sodium (Porcine) 5000 unit 5,000 unit BID SC Last administered on 08:19; Admin Dose 5,000 UNIT; Start 07/27/16 at 21:00 Cefepime HCl 50 ml @ 100 mls/hr Q12 IVPB Last administered on 07/29/16 08:15; Admin Dose 100 MLS/HR; Start 07/27/16 at 21:00 Vancomycin HCl/ Sodium Chloride (Vancocin/NS) 250 ml @ 83.333 mls/ hr Q12H IVPB Last administered on 07/29/16 08:15; Admin Dose 83.333 MLS/HR; Start at 09:00 Assessment/Plan Chief Complaint/Hosp Course - sepsis due to recurrent abscess of LLE - 2.9 cm of 1 x 1.6 x 1.3 cm subcutaneous abscess in the medial upper L thigh ~ 16 cm superior to the medial tibial patella. - 1.2 x 1.1 x 2.6 cm subcutaneous abscess in the medial upper L knee ~4.6 cm superior to the medial tibial plateau. - s/p I&D; s/p bedside drainage of seromas by CTS in 06/2016; s/p JOSE MANUEL guided drainage on 07/28/2016 - h/o myocardial infarction/VF arrest, status post CABG x4. s/p vein harvest of LLE - History of atrial fibrillation. - Chronic cardiomyopathy. - Atrial fibrillation/atrial flutter. - h/o MRSA nares. - Anemia. - Pulmonary embolism in 2009. - h/o SBO - h/o basal cell carcinoma of the mid back, s/p excision in 2014. recommendations - we are waiting for the results of: superficial wound culture, aerobic/ anaerobic cultures from the drained fluid - I ordered pathology review of the drained specimen ("cytology" order) to r/o malignancy and asked Arpita on 07/28/[address] Lr. Today, I found that my order of cytology is in "active" status but not "in process" status. I asked Pt's RN Adan to call the pathology department to confirm if they received Pt's specimen and if not, to call the ultrasound suite to look for the remaining specimen so that the "cytology" test is accomplished - continue IV vancomycin and cefepime empirically; will adjust his antibiotics based on the culture results. I recommend IV antibiotics upon discharge. Pt agreed. management d/w Pt, his RN Problems: NATASHA LUIS M.D. Jul 29, 2016 10:32
--- NOTE | 2016-07-29 17:26 | PN ---
Date/Time of Note Date/Time of Note DATE: 07/29/16 TIME: 17:24 Assessment/Plan VTE Prophylaxis VTE Prophylaxis Intervention: heparin Lines/Catheters IV [facility]from [facility] Saline Lock Urinary Cath still in place: No Assessment/Plan Assessment/Plan 1. Sepsis, as evidenced by fever, leukocytosis, and tachycardia, secondary to left lower extremity wound infection s/p US guided aspiration 2. Recent history of ventricular fibrillation, cardiac arrest, and myocardial infarction status post coronary artery bypass graft 5 weeks ago. 3. History of cardiomyopathy with systolic dysfunction with EF of 45%. 4. History of pulmonary embolism in 2009. 5. History of basal cell carcinoma of the midback, status post excision in 2014. 6. History of atrial fibrillation. 7. History of large ventral incisional hernia repair in 2009. 8. History of recent small bowel obstruction. 9. Acute kidney injury. PLAN: IV abx vancomcyin and cefepime,s/p US guided aspiration, cx pending Heparin For DVT prophylaxis ID following Subjective 24 Hr Interval Summary Free Text/Dictation s/p US guided aspiration of left calf soft tissue mass, BP stable Exam/Review of Systems Vital Signs Vitals Vital Signs Date Time Temp Pulse Resp B/P Pulse Ox O2 Delivery O2 Flow Rate FiO2 07/29/16 07:47 98.7 73 19 122/70 97 07/28/16 21:15 Room Air 07/26/16 23:13 2.0 Intake and Output 07/28/16 07/28/16 07/29/16 15:00 23:00 07:00 Intake Total 250 ml 1460 ml 1100 ml Output Total 1875 ml 1100 ml Balance 250 ml -415 ml 0 ml Exam GENERAL: In no acute distress, slightly sleepy but arousable, alert and oriented x3. HEENT: No obvious head deformity. Pupils reactive to light. Extraocular muscles intact. HEART: Regular rate and rhythm. No extra sounds. LUNGS: Slightly decreased breath sounds at the bases. ABDOMEN: Soft, nontender, nondistended, positive bowel sounds. EXTREMITIES: Left lower extremity with draining wound. There is also a dressing in place. There is discoloration on both his lower extremities. Results Result Diagram: 07/29/16 0535 07/29/16 0523 Results 24 hrs Laboratory Tests Test 07/28/16 17:40 07/29/16 05:23 07/29/16 05:35 Vancomycin Level Trough 12.7 Sodium Level 141 Potassium Level 3.6 Chloride Level 110 Carbon Dioxide Level 22 Anion Gap 13 Blood Urea Nitrogen 16 Creatinine 1.23 Glucose Level 109 Calcium Level 8.3 L White Blood Count 6.8 # Red Blood Count 3.52 L Hemoglobin 10.0 L Hematocrit 32.5 L Mean Corpuscular Volume 92.3 Mean Corpuscular Hemoglobin 28.4 L Mean Corpuscular Hemoglobin Concent 30.8 L Red Cell Distribution Width 14.8 H Platelet Count 279 Mean Platelet Volume 10.4 Neutrophils % 53.8 Lymphocytes % 26.0 Monocytes % 14.2 H Eosinophils % 5.3 Basophils % 0.4 Nucleated Red Blood Cells % 0.0 Neutrophils # 3.7 Lymphocytes # 1.8 Monocytes # 1.0 H Eosinophils # 0.4 Basophils # 0.0 Nucleated Red Blood Cells # 0.0 Prothrombin Time 14.2 Prothrombin Time Ratio 1.1 INR International Normalized Ratio 1.10 Activated Partial Thromboplast Time 35.6 H Medications Medications Current Medications Morphine Sulfate (morphine) 3 mg Q4H PRN IV FOR PAIN; Start 07/27/16 at 01:30 Acetaminophen (Tylenol Tab) 650 mg Q6H PRN PO PAIN AND OR ELEVATED TEMP Last administered on 07/27/16 17:50; Admin Dose 650 MG; Start 07/27/16 at 01:30 Ondansetron HCl (Zofran Inj) 4 mg Q6H PRN IV NAUSEA AND/OR VOMITING; Start 07/27 at 01:30 Heparin Sodium (Porcine) 5000 unit 5,000 unit BID SC Last administered on 08:19; Admin Dose 5,000 UNIT; Start 07/27/16 at 21:00 Cefepime HCl 50 ml @ 100 mls/hr Q12 IVPB Last administered on 07/29/16 08:15; Admin Dose 100 MLS/HR; Start 07/27/16 at 21:00 Vancomycin HCl/ Sodium Chloride (Vancocin/NS) 250 ml @ 83.333 mls/ hr Q12H IVPB Last administered on 07/29/16 08:15; Admin Dose 83.333 MLS/HR; Start at 09:00 EFREM RODRIGUEZ MD Jul 29, 2016 17:26
[2016-07-29 20:28] VITALS: BP 137/70; RESP 20
[2016-07-30 06:18] LABS: ADD SCAN DIFF NO
[2016-07-30 06:21] LABS: BASOPHILS % 0.5 % (0.0-2.0); EOSINOPHILS # 0.4 10^3/ul (0.0-0.5); EOSINOPHILS % 5.9 % (0.0-7.0); HEMATOCRIT 32.4 % (42.0-52.0); HEMOGLOBIN 10.2 g/dl (14.0-18.0); LYMPHOCYTES # 1.8 10^3/ul (0.8-2.9); LYMPHOCYTES % 28.8 % (15.0-51.0); MEAN CORPUSCULAR HEMOGLOBIN 28.8 pg (29.0-33.0); MEAN CORPUSCULAR HGB CONC 31.5 g/dl (32.0-37.0); MEAN CORPUSCULAR VOLUME 91.5 fl (82.0-101.0); MEAN PLATELET VOLUME 9.8 fl (7.4-10.4); MONOCYTE # 0.7 10^3/ul (0.3-0.9); NEUTROPHIL # 3.2 10^3/ul (1.6-7.5); NEUTROPHILS % 52.5 % (39.0-77.0); PLATELET COUNT 283 10^3/UL (140-415); RED BLOOD COUNT 3.54 10^6/ul (4.70-6.10); RED CELL DISTRIBUTION WIDTH 14.6 % (11.5-14.5); WHITE BLOOD COUNT 6.1 10^3/ul (4.8-10.8)
[2016-07-30 06:46] LABS: INR 1.11; PROTIME 14.3 Sec (12.2-14.2); PT RATIO 1.1
[2016-07-30 06:51] LABS: POTASSIUM 3.5 mmol/L (3.5-5.1)
[2016-07-30 06:54] LABS: CALCIUM 8.5 mg/dl (8.4-10.2); CREATININE 1.19 mg/dl (0.61-1.24)
[2016-07-30 07:40] VITALS: BP 113/56; RESP 19
[2016-07-30] MEDS: CEFEPIME 2GM/50 ML (PMX) 50 ML IVPB SCH ×2 (09:16→20:37)
[2016-07-30] MEDS: HEPARIN 5,000 UNIT/0.5 ML VIAL SC SCH ×2 (09:24→20:38)
[2016-07-30] MEDS: VANCOMYCIN 1.25 GM in SOD CHLORIDE 0.9% 250 ML IVPB SCH ×2 (10:11→21:44)
[2016-07-30 19:26] VITALS: BP 137/68; RESP 20
--- NOTE | 2016-07-30 19:58 | CONS ---
Date/Time of Note Date/Time of Note DATE: 07/30/16 TIME: 19:54 Assessment/Plan Assessment/Plan Chief Complaint/Hosp Course - sepsis due to recurrent abscess of LLE - 2.9 cm of 1 x 1.6 x 1.3 cm subcutaneous abscess in the medial upper L thigh ~ 16 cm superior to the medial tibial patella. - 1.2 x 1.1 x 2.6 cm subcutaneous abscess in the medial upper L knee ~4.6 cm superior to the medial tibial plateau. - s/p I&D; s/p bedside drainage of seromas by CTS in 06/2016; s/p JOSE MANUEL guided drainage on 07/28/2016. Cultures are negative. Cytology showed Acute fibrinoneutrophilic exudate and scanty inflamed granulation tissue, compatible with an abscess content. - h/o myocardial infarction/VF arrest, status post CABG x4. s/p vein harvest of LLE - History of atrial fibrillation. - Chronic cardiomyopathy. - Atrial fibrillation/atrial flutter. - h/o MRSA nares. - Anemia. - Pulmonary embolism in 2009. - h/o SBO - h/o basal cell carcinoma of the mid back, s/p excision in 2014. recommendations - we are waiting for the results of: superficial wound culture, aerobic/ anaerobic cultures from the drained fluid - continue IV vancomycin, change cefepime to ertapenem. I recommend IV antibiotic administration via PICC upon discharge management d/w Pt, his Problems: Consultation Date/Type/Reason Admit Date/Time Jul 26, 2016 at 22:01 Initial Consult Date 07/27/16 Type of Consultation: ID Referring Provider: EFREM RODRIGUEZ MD 24 HR Interval Summary Constitutional: no complaints Detailed Summary Eyes: no complaints ENT: no complaints Respiratory: no complaints Cardiovascular: no complaints Gastrointestinal: no complaints Genitourinary: no complaints Musculoskeletal: swelling (and pain of LLE, rated 3) Skin: skin lesions (skin lesion of LLE) Neurologic: no complaints Exam/Review of Systems Vital Signs Vitals Vital Signs Date Time Temp Pulse Resp B/P Pulse Ox O2 Delivery O2 Flow Rate FiO2 07/30/16 19:26 98.5 62 20 137/68 99 07/28/16 21:15 Room Air 07/26/16 23:13 2.0 Intake and Output 07/29/16 07/29/16 07/30/16 15:00 23:00 07:00 Intake Total 800 ml 900 ml Output Total 450 ml 500 ml Balance 350 ml 400 ml Exam Constitutional: alert, oriented, well developed Psych: nl mood/affect, no complaints Head: normocephalic Eyes: nl conjunctiva, nl lids ENMT: nl external ears & nose, nl nasal mucosa & septum Musculoskeletal: swelling (LLE, non-TTP, fluctuant but non-indurated or erythematous) Extremities: normal pulses Neurological: HOMEMAKER COMPANION II-XII intact, nl mental status Skin: nl turgor Results Result Diagram: 07/30/1660607/30/16606 Results 24 hrs Laboratory Tests Test 07/30/16 06:07 White Blood Count 6.1 Red Blood Count 3.54 L Hemoglobin 10.2 L Hematocrit 32.4 L Mean Corpuscular Volume 91.5 Mean Corpuscular Hemoglobin 28.8 L Mean Corpuscular Hemoglobin Concent 31.5 L Red Cell Distribution Width 14.6 H Platelet Count 283 Mean Platelet Volume 9.8 Neutrophils % 52.5 Lymphocytes % 28.8 Monocytes % 12.0 H Eosinophils % 5.9 Basophils % 0.5 Nucleated Red Blood Cells % 0.0 Neutrophils # 3.2 Lymphocytes # 1.8 Monocytes # 0.7 Eosinophils # 0.4 Basophils # 0.0 Nucleated Red Blood Cells # 0.0 Prothrombin Time 14.3 H Prothrombin Time Ratio 1.1 INR International Normalized Ratio 1.11 Activated Partial Thromboplast Time 32.0 Sodium Level 142 Potassium Level 3.5 Chloride Level 108 Carbon Dioxide Level 24 Anion Gap 14 Blood Urea Nitrogen 15 Creatinine 1.19 Glucose Level 105 Calcium Level 8.5 Medications Medications Current Medications Morphine Sulfate (morphine) 3 mg Q4H PRN IV FOR PAIN; Start 07/27/16 at 01:30 Acetaminophen (Tylenol Tab) 650 mg Q6H PRN PO PAIN AND OR ELEVATED TEMP Last administered on 07/27/16 17:50; Admin Dose 650 MG; Start 07/27/16 at 01:30 Ondansetron HCl (Zofran Inj) 4 mg Q6H PRN IV NAUSEA AND/OR VOMITING; Start 07/27 at 01:30 Heparin Sodium (Porcine) 5000 unit 5,000 unit BID SC Last administered on 09:24; Admin Dose 5,000 UNIT; Start 07/27/16 at 21:00 Cefepime HCl 50 ml @ 100 mls/hr Q12 IVPB Last administered on 07/30/16 09:16; Admin Dose 100 MLS/HR; Start 07/27/16 at 21:00 Vancomycin HCl/ Sodium Chloride (Vancocin/NS) 250 ml @ 83.333 mls/ hr Q12H IVPB Last administered on 07/30/16 10:11; Admin Dose 83.333 MLS/HR; Start at 09:00 NAATSHA LUIS M.D. Jul 30, 2016 19:58
--- NOTE | 2016-07-30 20:14 | PN ---
Date/Time of Note Date/Time of Note DATE: 07/30/16 TIME: 20:11 Assessment/Plan VTE Prophylaxis VTE Prophylaxis Intervention: heparin Lines/Catheters IV [facility]from [facility] Saline Lock Urinary Cath still in place: No Assessment/Plan Assessment/Plan 1. Sepsis, as evidenced by fever, leukocytosis, and tachycardia, secondary to left lower extremity wound infection s/p US guided aspiration 2. Recent history of ventricular fibrillation, cardiac arrest, and myocardial infarction status post coronary artery bypass graft 5 weeks ago. 3. History of cardiomyopathy with systolic dysfunction with EF of 45%. 4. History of pulmonary embolism in 2009. 5. History of basal cell carcinoma of the midback, status post excision in 2014. 6. History of atrial fibrillation. 7. History of large ventral incisional hernia repair in 2009. 8. History of recent small bowel obstruction. 9. Acute kidney injury. PLAN: IV abx vancomcyin, Cefepime has been changed to Ertapenem,,s/p US guided aspiration, cx pending Heparin For DVT prophylaxis ID following Subjective 24 Hr Interval Summary Free Text/Dictation no acute events, BPs table Exam/Review of Systems Vital Signs Vitals Vital Signs Date Time Temp Pulse Resp B/P Pulse Ox O2 Delivery O2 Flow Rate FiO2 07/30/16 19:26 98.5 62 20 137/68 99 07/28/16 21:15 Room Air 07/26/16 23:13 2.0 Intake and Output 07/29/16 07/29/16 07/30/16 15:00 23:00 07:00 Intake Total 800 ml 900 ml Output Total 450 ml 500 ml Balance 350 ml 400 ml Exam GENERAL: In no acute distress, slightly sleepy but arousable, alert and oriented x3. HEENT: No obvious head deformity. Pupils reactive to light. Extraocular muscles intact. HEART: Regular rate and rhythm. No extra sounds. LUNGS: Slightly decreased breath sounds at the bases. ABDOMEN: Soft, nontender, nondistended, positive bowel sounds. EXTREMITIES: Left lower extremity with draining wound. There is also a dressing in place. There is discoloration on both his lower extremities. Results Result Diagram: 07/30/16 0607 07/30/16 0607 Results 24 hrs Laboratory Tests Test 07/30/16 06:07 White Blood Count 6.1 Red Blood Count 3.54 L Hemoglobin 10.2 L Hematocrit 32.4 L Mean Corpuscular Volume 91.5 Mean Corpuscular Hemoglobin 28.8 L Mean Corpuscular Hemoglobin Concent 31.5 L Red Cell Distribution Width 14.6 H Platelet Count 283 Mean Platelet Volume 9.8 Neutrophils % 52.5 Lymphocytes % 28.8 Monocytes % 12.0 H Eosinophils % 5.9 Basophils % 0.5 Nucleated Red Blood Cells % 0.0 Neutrophils # 3.2 Lymphocytes # 1.8 Monocytes # 0.7 Eosinophils # 0.4 Basophils # 0.0 Nucleated Red Blood Cells # 0.0 Prothrombin Time 14.3 H Prothrombin Time Ratio 1.1 INR International Normalized Ratio 1.11 Activated Partial Thromboplast Time 32.0 Sodium Level 142 Potassium Level 3.5 Chloride Level 108 Carbon Dioxide Level 24 Anion Gap 14 Blood Urea Nitrogen 15 Creatinine 1.19 Glucose Level 105 Calcium Level 8.5 Medications Medications Current Medications Morphine Sulfate (morphine) 3 mg Q4H PRN IV FOR PAIN; Start 07/27/16 at 01:30 Acetaminophen (Tylenol Tab) 650 mg Q6H PRN PO PAIN AND OR ELEVATED TEMP Last administered on 07/27/16 17:50; Admin Dose 650 MG; Start 07/27/16 at 01:30 Ondansetron HCl (Zofran Inj) 4 mg Q6H PRN IV NAUSEA AND/OR VOMITING; Start 07/27 at 01:30 Heparin Sodium (Porcine) 5000 unit 5,000 unit BID SC Last administered on 09:24; Admin Dose 5,000 UNIT; Start 07/27/16 at 21:00 Cefepime HCl 50 ml @ 100 mls/hr Q12 IVPB Last administered on 07/30/16 09:16; Admin Dose 100 MLS/HR; Start 07/27/16 at 21:00; Stop 07/30/16 at 23:59 Vancomycin HCl 1.25 gm/Sodium Chloride 250 ml @ 83.333 mls/ hr Q12H IVPB Last administered on 07/30/16 10:11; Admin Dose 83.333 MLS/HR; Start 07/29/16 at 09:00 Ertapenem/Sodium Chloride (Invanz/NS) 100 ml @ 200 mls/hr Q24H IVPB ; Start 07/31/16 at 09:00 EFREM RODRIGUEZ MD Jul 30, 2016 20:14
[2016-07-31 07:58] VITALS: BP 125/67; RESP 16
[2016-07-31] MEDS: ERTAPENEM SODIUM 1 GM in SOD CHLORIDE 0.9% 100 ML IVPB SCH (08:04)
[2016-07-31] MEDS: VANCOMYCIN 1.25 GM in SOD CHLORIDE 0.9% 250 ML IVPB SCH (08:47)
[2016-07-31] MEDS: HEPARIN 5,000 UNIT/0.5 ML VIAL SC SCH ×2 (08:50→21:13)
[2016-07-31] MEDS ORDERED: LIDOCAINE 1% (MDV) 20 ML INJ SC ONE (12:30)
--- NOTE | 2016-07-31 12:43 | CONS ---
Date/Time of Note Date/Time of Note DATE: 07/31/16 TIME: 12:41 Assessment/Plan Assessment/Plan Chief Complaint/Hosp Course - sepsis due to recurrent abscess of LLE - 2.9 cm of 1 x 1.6 x 1.3 cm subcutaneous abscess in the medial upper L thigh ~ 16 cm superior to the medial tibial patella. - 1.2 x 1.1 x 2.6 cm subcutaneous abscess in the medial upper L knee ~4.6 cm superior to the medial tibial plateau. - s/p I&D; s/p bedside drainage of seromas by CTS in 06/2016; s/p JOSE MANUEL guided drainage on 07/28/2016. Cultures are negative. Cytology showed Acute fibrinoneutrophilic exudate and scanty inflamed granulation tissue, compatible with an abscess content. - h/o myocardial infarction/VF arrest, status post CABG x4. s/p vein harvest of LLE - History of atrial fibrillation. - Chronic cardiomyopathy. - Atrial fibrillation/atrial flutter. - h/o MRSA nares. - Anemia. - Pulmonary embolism in 2009. - h/o SBO - h/o basal cell carcinoma of the mid back, s/p excision in 2014. recommendations - we are waiting for the results of: superficial wound culture, aerobic/ anaerobic cultures from the drained fluid - I recommend re-evaluation by his surgeon - continue IV vancomycin and ertapenem. management d/w Pt, his Problems: Consultation Date/Type/Reason Admit Date/Time Jul 26, 2016 at 22:01 Initial Consult Date 07/27/16 Type of Consultation: ID Referring Provider: EFREM RODRIGUEZ MD 24 HR Interval Summary Constitutional: no complaints Detailed Summary Eyes: no complaints ENT: no complaints Respiratory: no complaints Cardiovascular: no complaints Gastrointestinal: no complaints Genitourinary: no complaints Musculoskeletal: swelling (less than before) Skin: skin lesions (non-painful lesion on LLE) Neurologic: no complaints Exam/Review of Systems Vital Signs Vitals Vital Signs Date Time Temp Pulse Resp B/P Pulse Ox O2 Delivery O2 Flow Rate FiO2 07/31/16 07:58 99.0 60 16 125/67 95 07/28/16 21:15 Room Air Intake and Output 07/30/16 07/30/16 07/31/16 15:00 23:00 07:00 Intake Total 300 ml 1330 ml 730 ml Output Total 1200 ml 1200 ml Balance 300 ml 130 ml -470 ml Exam Constitutional: alert, oriented, well developed Psych: nl mood/affect, no complaints Head: atraumatic, normocephalic Eyes: nl conjunctiva, nl lids ENMT: nl external ears & nose, nl nasal mucosa & septum Neck: supple Musculoskeletal: swelling (LLE, non-TTP) Skin: rash or lesions (soft mass, non-indurated, on LLE) Results Result Diagram: 07/30/1660607/30/16606 Medications Medications Current Medications Morphine Sulfate (morphine) 3 mg Q4H PRN IV FOR PAIN; Start 07/27/16 at 01:30 Acetaminophen (Tylenol Tab) 650 mg Q6H PRN PO PAIN AND OR ELEVATED TEMP Last administered on 07/27/16 17:50; Admin Dose 650 MG; Start 07/27/16 at 01:30 Ondansetron HCl (Zofran Inj) 4 mg Q6H PRN IV NAUSEA AND/OR VOMITING; Start 07/27 at 01:30 Heparin Sodium (Porcine) 5000 unit 5,000 unit BID SC Last administered on 08:50; Admin Dose 5,000 UNIT; Start 07/27/16 at 21:00 Vancomycin HCl 1.25 gm/Sodium Chloride 250 ml @ 83.333 mls/ hr Q12H IVPB Last administered on 07/31/16 08:47; Admin Dose 83.333 MLS/HR; Start 07/29/16 at 09:00 Ertapenem/Sodium Chloride (Invanz/NS) 100 ml @ 200 mls/hr Q24H IVPB Last administered on 07/31/16 08:04; Admin Dose 200 MLS/HR; Start 07/31/16 at 09:00 NATASHA LUIS M.D. Jul 31, 2016 12:43
--- NOTE | 2016-07-31 12:48 | PN ---
Date/Time of Note Date/Time of Note DATE: 07/31/16 TIME: 12:45 Assessment/Plan VTE Prophylaxis VTE Prophylaxis Intervention: heparin Lines/Catheters IV Catheter Type (from [facility]): Saline Lock Urinary Cath still in place: No Assessment/Plan Assessment/Plan 1. Sepsis, as evidenced by fever, leukocytosis, and tachycardia, secondary to left lower extremity wound infection s/p US guided aspiration 2. Recent history of ventricular fibrillation, cardiac arrest, and myocardial infarction status post coronary artery bypass graft 5 weeks ago. 3. History of cardiomyopathy with systolic dysfunction with EF of 45%. 4. History of pulmonary embolism in 2009. 5. History of basal cell carcinoma of the midback, status post excision in 2014. 6. History of atrial fibrillation. 7. History of large ventral incisional hernia repair in 2009. 8. History of recent small bowel obstruction. 9. Acute kidney injury. PLAN: IV abx vancomcyin, Cefepime has been changed to Ertapenem,,s/p US guided aspiration, cx pending wound not healing,will order official wound care consult, Pt surgery was done by and he evaluated pt while in hospital if wound care nurse recommends I & D then we will call surgery to do it meanwhile we will order PICC line placement for exterminator IV abx Heparin For DVT prophylaxis ID following Subjective 24 Hr Interval Summary Free Text/Dictation LE wound not healing, will order wound care consutl, PICC line placement Exam/Review of Systems Vital Signs Vitals Vital Signs Date Time Temp Pulse Resp B/P Pulse Ox O2 Delivery O2 Flow Rate FiO2 07/31/16 07:58 99.0 60 16 125/67 95 07/28/16 21:15 Room Air Intake and Output 07/30/16 07/30/16 07/31/16 15:00 23:00 07:00 Intake Total 300 ml 1330 ml 730 ml Output Total 1200 ml 1200 ml Balance 300 ml 130 ml -470 ml Exam GENERAL: In no acute distress, slightly sleepy but arousable, alert and oriented x3. HEENT: No obvious head deformity. Pupils reactive to light. Extraocular muscles intact. HEART: Regular rate and rhythm. No extra sounds. LUNGS: Slightly decreased breath sounds at the bases. ABDOMEN: Soft, nontender, nondistended, positive bowel sounds. EXTREMITIES: Left lower extremity with draining wound. There is also a dressing in place. There is discoloration on both his lower extremities. Results Result Diagram: 07/30/1660607/30/16606 Medications Medications Current Medications Morphine Sulfate (morphine) 3 mg Q4H PRN IV FOR PAIN; Start 07/27/16 at 01:30 Acetaminophen (Tylenol Tab) 650 mg Q6H PRN PO PAIN AND OR ELEVATED TEMP Last administered on 07/27/16 17:50; Admin Dose 650 MG; Start 07/27/16 at 01:30 Ondansetron HCl (Zofran Inj) 4 mg Q6H PRN IV NAUSEA AND/OR VOMITING; Start 07/27 at 01:30 Heparin Sodium (Porcine) 5000 unit 5,000 unit BID SC Last administered on 08:50; Admin Dose 5,000 UNIT; Start 07/27/16 at 21:00 Vancomycin HCl 1.25 gm/Sodium Chloride 250 ml @ 83.333 mls/ hr Q12H IVPB Last administered on 07/31/16 08:47; Admin Dose 83.333 MLS/HR; Start 07/29/16 at 09:00 Ertapenem/Sodium Chloride (Invanz/NS) 100 ml @ 200 mls/hr Q24H IVPB Last administered on 07/31/16 08:04; Admin Dose 200 MLS/HR; Start 07/31/16 at 09:00 EFREM RODRIGUEZ MD Jul 31, 2016 12:48
[2016-07-31 20:16] VITALS: BP 134/68; RESP 20
[2016-08-01] MEDS: VANCOMYCIN 1 GM in NS 250 ML IVPB SCH ×2 (02:08→13:27)
[2016-08-01 07:10] LABS: CREATININE 1.04 mg/dl (0.61-1.24)
[2016-08-01 08:13] VITALS: BP 142/76; RESP 22
[2016-08-01] MEDS: ERTAPENEM SODIUM 1 GM in SOD CHLORIDE 0.9% 100 ML IVPB SCH (08:34)
[2016-08-01] MEDS: HEPARIN 5,000 UNIT/0.5 ML VIAL SC SCH ×2 (08:41→20:26)
--- NOTE | 2016-08-01 09:50 | PN ---
Date/Time of Note Date/Time of Note DATE: 08/01/16 TIME: 09:48 Assessment/Plan VTE Prophylaxis VTE Prophylaxis Intervention: heparin Lines/Catheters IV C[facility]ter Type (from [facility]): Saline Lock Urinary Cath still in place: No Assessment/Plan Chief Complaint/Hosp Course Assessment 1. Sepsis, as evidenced by fever, leukocytosis, and tachycardia, secondary to left lower extremity wound infection s/p US guided aspiration 2. Recent history of ventricular fibrillation, cardiac arrest, and myocardial infarction status post coronary artery bypass graft 5 weeks ago. 3. History of cardiomyopathy with systolic dysfunction with EF of 45%. 4. History of pulmonary embolism in 2009. 5. History of basal cell carcinoma of the midback, status post excision in 2014. 6. History of atrial fibrillation. 7. History of large ventral incisional hernia repair in 2009. 8. History of recent small bowel obstruction. 9. Acute kidney injury. PLAN: 1. IV abx vancomcyin, Cefepime has been changed to Ertapenem,,s/p US guided aspiration, patient declined PICC line continue ID recommendations 2. Wound care evaluation 3. Routine labs 4. Encourage out of bed Disposition Continue current level of care Problems: Subjective 24 Hr Interval Summary Free Text/Dictation Patient doing okay this morning Refused PICC line Clinically unchanged Exam/Review of Systems Vital Signs Vitals Vital Signs Date Time Temp Pulse Resp B/P Pulse Ox O2 Delivery O2 Flow Rate FiO2 08/01/16 08:13 98.0 58 22 142/76 97 07/28/16 21:15 Room Air Intake and Output 07/31/16 07/31/16 08/01/16 15:00 23:00 07:00 Intake Total 350 ml 1560 ml 850 ml Output Total 700 ml 500 ml Balance 350 ml 860 ml 350 ml Exam GENERAL: Moderately obese gentleman comfortable at rest no acute distress VITAL SIGNS: per chart NECK: Supple. No JVD or lymphadenopathy. CARDIAC EXAM: S1, S2. No added sounds or murmurs. CHEST: clear bilaterally, No added sounds, rales or wheezes ABDOMEN: Soft, nontender. No guarding or rebound. EXTREMITIES: No cyanosis, clubbing or edema. NEUROLOGIC: Generalized weakness. No focal deficits. Results Result Diagram: 07/30/16 0607 08/01/16 0532 Results 24 hrs Laboratory Tests Test 07/31/16 20:05 08/01/16 05:32 Vancomycin Level Trough 17.0 Blood Urea Nitrogen 17 Creatinine 1.04 Medications Medications Current Medications Morphine Sulfate (morphine) 3 mg Q4H PRN IV FOR PAIN; Start 07/27/16 at 01:30 Acetaminophen (Tylenol Tab) 650 mg Q6H PRN PO PAIN AND OR ELEVATED TEMP Last administered on 07/27/16 17:50; Admin Dose 650 MG; Start 07/27/16 at 01:30 Ondansetron HCl (Zofran Inj) 4 mg Q6H PRN IV NAUSEA AND/OR VOMITING; Start 07/27 at 01:30 Heparin Sodium (Porcine) 5000 unit 5,000 unit BID SC Last administered on 08:41; Admin Dose 5,000 UNIT; Start 07/27/16 at 21:00 Ertapenem 1 gm/ Sodium Chloride 100 ml @ 200 mls/hr Q24H IVPB Last administered on 08/01/16 08:34; Admin Dose 200 MLS/HR; Start 07/31/16 at 09:00 Vancomycin HCl (Vancocin) 250 ml @ 125 mls/hr Q12H IVPB Last administered on 02:08; Admin Dose 125 MLS/HR; Start 08/01/16 at 02:00 MITRA GORE MD, [facility] Aug 01, 2016 09:50
--- NOTE | 2016-08-01 17:28 | CONS ---
Date/Time of Note Date/Time of Note DATE: 08/01/16 TIME: 17:27 Assessment/Plan Assessment/Plan Chief Complaint/Hosp Course - sepsis due to recurrent abscess of LLE - 2.9 cm of 1 x 1.6 x 1.3 cm subcutaneous abscess in the medial upper L thigh ~ 16 cm superior to the medial tibial patella. - 1.2 x 1.1 x 2.6 cm subcutaneous abscess in the medial upper L knee ~4.6 cm superior to the medial tibial plateau. - s/p I&D; s/p bedside drainage of seromas by CTS in 06/2016; s/p JOSE MANUEL guided drainage on 07/28/2016. Cultures are negative. Cytology showed Acute fibrinoneutrophilic exudate and scanty inflamed granulation tissue, compatible with an abscess content. - h/o myocardial infarction/VF arrest, status post CABG x4. s/p vein harvest of LLE - History of atrial fibrillation. - Chronic cardiomyopathy. - Atrial fibrillation/atrial flutter. - h/o MRSA nares. - Anemia. - Pulmonary embolism in 2009. - h/o SBO - h/o basal cell carcinoma of the mid back, s/p excision in 2014. recommendations - surg f/u - continue IV vancomycin and ertapenem. Problems: Consultation Date/Type/Reason Admit Date/Time Jul 26, 2016 at 22:01 Initial Consult Date 07/27/16 Type of Consultation: ID Referring Provider: EFREM RODRIGUEZ MD Exam/Review of Systems Vital Signs Vitals Vital Signs Date Time Temp Pulse Resp B/P Pulse Ox O2 Delivery O2 Flow Rate FiO2 08/01/16 08:13 98.0 58 22 142/76 97 07/28/16 21:15 Room Air Intake and Output 07/31/16 07/31/16 08/01/16 15:00 23:00 07:00 Intake Total 350 ml 1560 ml 850 ml Output Total 700 ml 500 ml Balance 350 ml 860 ml 350 ml Exam Constitutional: alert, oriented, well developed Psych: nl mood/affect, no complaints Eyes: EOMI, PERRL, nl conjunctiva, nl lids, nl sclera Respiratory: clear to auscultation, normal air movement Cardiovascular: nl pulses, regular rate and rhythm Gastrointestinal: nl liver, spleen, non-tender, soft Results Result Diagram: 07/30/16 0607 08/01/16 0532 Results 24 hrs Laboratory Tests Test 07/31/16 20:05 08/01/16 05:32 Vancomycin Level Trough 17.0 Blood Urea Nitrogen 17 Creatinine 1.04 Medications Medications Current Medications Morphine Sulfate (morphine) 3 mg Q4H PRN IV FOR PAIN; Start 07/27/16 at 01:30 Acetaminophen (Tylenol Tab) 650 mg Q6H PRN PO PAIN AND OR ELEVATED TEMP Last administered on 07/27/16 17:50; Admin Dose 650 MG; Start 07/27/16 at 01:30 Ondansetron HCl (Zofran Inj) 4 mg Q6H PRN IV NAUSEA AND/OR VOMITING; Start 07/27 at 01:30 Heparin Sodium (Porcine) 5000 unit 5,000 unit BID SC Last administered on 08:41; Admin Dose 5,000 UNIT; Start 07/27/16 at 21:00 Ertapenem 1 gm/ Sodium Chloride 100 ml @ 200 mls/hr Q24H IVPB Last administered on 08/01/16 08:34; Admin Dose 200 MLS/HR; Start 07/31/16 at 09:00 Vancomycin HCl (Vancocin) 250 ml @ 125 mls/hr Q12H IVPB Last administered on 13:27; Admin Dose 125 MLS/HR; Start 08/01/16 at 02:00 GÉNESIS HARRIS MD Aug 01, 2016 17:28
[2016-08-01 19:42] VITALS: BP 123/69; RESP 20
[2016-08-02] MEDS: VANCOMYCIN 1 GM in NS 250 ML IVPB SCH ×2 (01:32→14:06)
[2016-08-02 07:35] VITALS: BP 117/58; RESP 22
[2016-08-02] MEDS: ERTAPENEM SODIUM 1 GM in SOD CHLORIDE 0.9% 100 ML IVPB SCH (08:52)
[2016-08-02] MEDS: HEPARIN 5,000 UNIT/0.5 ML VIAL SC SCH ×2 (08:57→20:58)
--- NOTE | 2016-08-02 10:11 | CONS ---
Date/Time of Note Date/Time of Note DATE: 08/02/16 TIME: 10:10 Assessment/Plan Assessment/Plan Chief Complaint/Hosp Course - sepsis due to recurrent abscess of LLE - 2.9 cm of 1 x 1.6 x 1.3 cm subcutaneous abscess in the medial upper L thigh ~ 16 cm superior to the medial tibial patella. - 1.2 x 1.1 x 2.6 cm subcutaneous abscess in the medial upper L knee ~4.6 cm superior to the medial tibial plateau. - s/p I&D; s/p bedside drainage of seromas by CTS in 06/2016; s/p JOSE MANUEL guided drainage on 07/28/2016. Cultures are negative. Cytology showed Acute fibrinoneutrophilic exudate and scanty inflamed granulation tissue, compatible with an abscess content. - h/o myocardial infarction/VF arrest, status post CABG x4. s/p vein harvest of LLE - History of atrial fibrillation. - Chronic cardiomyopathy. - Atrial fibrillation/atrial flutter. - h/o MRSA nares. - Anemia. - Pulmonary embolism in 2009. - h/o SBO - h/o basal cell carcinoma of the mid back, s/p excision in 2014. recommendations - surg f/u - continue IV vancomycin and ertapenem. Problems: Consultation Date/Type/Reason Admit Date/Time Jul 26, 2016 at 22:01 Initial Consult Date 07/27/16 Type of Consultation: ID Referring Provider: EFREM RODRIGUEZ MD 24 HR Interval Summary Free Text/Dictation continues to have drainage. Exam/Review of Systems Vital Signs Vitals Vital Signs Date Time Temp Pulse Resp B/P Pulse Ox O2 Delivery O2 Flow Rate FiO2 08/02/16 07:35 98.0 72 22 117/58 97 Intake and Output 08/01/16 08/01/16 08/02/16 15:00 23:00 07:00 Intake Total 1550 ml 850 ml Output Total 1600 ml 1450 ml Balance -50 ml -600 ml Exam Constitutional: alert, oriented, well developed Psych: nl mood/affect, no complaints Head: atraumatic, normocephalic Eyes: EOMI, PERRL, nl conjunctiva, nl lids, nl sclera ENMT: nl external ears & nose, nl lips & teeth, nl nasal mucosa & septum Respiratory: clear to auscultation, normal air movement Cardiovascular: nl pulses, regular rate and rhythm Gastrointestinal: nl liver, spleen, non-tender, soft Results Result Diagram: 07/30/16 0607 08/01/16 0532 Medications Medications Current Medications Morphine Sulfate (morphine) 3 mg Q4H PRN IV FOR PAIN; Start 07/27/16 at 01:30 Acetaminophen (Tylenol Tab) 650 mg Q6H PRN PO PAIN AND OR ELEVATED TEMP Last administered on 07/27/16 17:50; Admin Dose 650 MG; Start 07/27/16 at 01:30 Ondansetron HCl (Zofran Inj) 4 mg Q6H PRN IV NAUSEA AND/OR VOMITING; Start 07/27 at 01:30 Heparin Sodium (Porcine) 5000 unit 5,000 unit BID SC Last administered on 08:57; Admin Dose 5,000 UNIT; Start 07/27/16 at 21:00 Ertapenem 1 gm/ Sodium Chloride 100 ml @ 200 mls/hr Q24H IVPB Last administered on 08/02/16 08:52; Admin Dose 200 MLS/HR; Start 07/31/16 at 09:00 Vancomycin HCl (Vancocin) 250 ml @ 125 mls/hr Q12H IVPB Last administered on 01:32; Admin Dose 125 MLS/HR; Start 08/01/16 at 02:00 GÉNESIS HARRIS MD Aug 02, 2016 10:10
--- NOTE | 2016-08-02 17:11 | PN ---
DATE: 08/02/2016 MEDICAL PROGRESS NOTE HISTORY: The patient a 61-year-old male admitted with sepsis with postop leg abscess and cellulitis . He has no complaints of pain currently. He has had no fevers, chills, or sweats. He is receivin g IV antibiotics. He is eating and drinking adequately and ambulatory with no acute distress. PHYSICAL EXAMINATION: GENERAL: Shows him to be well-developed, well-nourished, in no acute distress. VITAL SIGNS: Pulse 72, respirations 22, blood pressure 117/58, temperature 98 degrees. NECK: Shows no acute inflammation. HEART: Regular, without definite murmurs or gallops. CHEST: Fairly clear. ABDOMEN: Slightly full, soft, nontender, without definite masses or organomegaly. EXTREMITIES: Shows chronic stasis changes and the wounds are bandaged. NEUROLOGIC: Alert and conversant, ambulatory. LABORATORY DATA: No new lab or x-ray from today. ASSESSMENT AND PLAN: 1. Sepsis, improving with treatment of left leg wound infection, status post aspiration and drainag e. 2. Coronary artery disease status post recent coronary artery bypass graft, myocardial infarction, cardiac arrest with ischemic cardiomyopathy with 45% ejection fraction and history of atrial fibrill ation. 3. History of recent small-bowel obstruction. 4. Status post acute kidney injury, reasonably stable currently. PLAN: Continue current antibiotics with infectious disease followup and surgical followup as needed . Check morning labs tomorrow. Discussed with nursing. Dictated By: RICKY CARTER/NORM Conf#: [id number] DID#: [id number] CC: RICARDA REYNOLDS MD;*EndCC*
[2016-08-02 20:00] VITALS: BP 145/72; RESP 20
[2016-08-03] MEDS: VANCOMYCIN 1 GM in NS 250 ML IVPB SCH ×2 (02:13→13:31)
[2016-08-03 08:16] VITALS: BP 134/63; RESP 20
[2016-08-03] MEDS: ERTAPENEM SODIUM 1 GM in SOD CHLORIDE 0.9% 100 ML IVPB SCH (09:00)
[2016-08-03] MEDS: HEPARIN 5,000 UNIT/0.5 ML VIAL SC SCH ×2 (09:06→22:49)
[2016-08-03 10:18] LABS: ADD SCAN DIFF NO
[2016-08-03 10:34] LABS: BASOPHILS % 0.5 % (0.0-2.0); EOSINOPHILS # 0.3 10^3/ul (0.0-0.5); EOSINOPHILS % 5.5 % (0.0-7.0); HEMATOCRIT 35.6 % (42.0-52.0); HEMOGLOBIN 11.1 g/dl (14.0-18.0); LYMPHOCYTES # 1.8 10^3/ul (0.8-2.9); LYMPHOCYTES % 30.7 % (15.0-51.0); MEAN CORPUSCULAR HEMOGLOBIN 28.7 pg (29.0-33.0); MEAN CORPUSCULAR HGB CONC 31.2 g/dl (32.0-37.0); MEAN PLATELET VOLUME 10.1 fl (7.4-10.4); MONOCYTE # 0.8 10^3/ul (0.3-0.9); MONOCYTES % 12.6 % (0.0-11.0); NEUTROPHILS % 50.4 % (39.0-77.0); PLATELET COUNT 354 10^3/UL (140-415); RED BLOOD COUNT 3.87 10^6/ul (4.70-6.10); RED CELL DISTRIBUTION WIDTH 14.1 % (11.5-14.5)
[2016-08-03 10:52] LABS: POTASSIUM 4.3 mmol/L (3.5-5.1)
[2016-08-03 10:55] LABS: CREATININE 1.03 mg/dl (0.61-1.24)
--- NOTE | 2016-08-03 18:01 | PN ---
Date/Time of Note Date/Time of Note DATE: 08/03/16 TIME: 17:56 Assessment/Plan VTE Prophylaxis VTE Prophylaxis Intervention: heparin Lines/Catheters IV [facility]from [facility] Saline Lock Urinary Cath still in place: No Assessment/Plan Chief Complaint/Hosp Course 1. Sepsis 2/2 left leg wound infection, status post aspiration and drainage- resolved -pt still draining at wound site, F/U with ID recs 2. Coronary artery disease status post recent coronary artery bypass graft with Hx of myocardial infarction and cardiac arrest-stable 3. CHF with EF of 45%-stable 4. History of atrial fibrillation-stable 5 History of recent small-bowel obstruction 6. Status post acute kidney injury-stable PPx- Heparin Problems: Subjective 24 Hr Interval Summary Constitutional: no complaints Exam/Review of Systems Vital Signs Vitals Vital Signs Date Time Temp Pulse Resp B/P Pulse Ox O2 Delivery O2 Flow Rate FiO2 08/03/16 08:16 98.2 66 20 134/63 97 Intake and Output 08/02/16 08/02/16 08/03/16 15:00 23:00 07:00 Intake Total 1310 ml 790 ml Output Total 1020 ml 1975 ml Balance 290 ml -1185 ml Exam Constitutional: alert Respiratory: clear to auscultation Cardiovascular: regular rate and rhythm Gastrointestinal: soft, No distended Musculoskeletal: No nl extremities to inspection Results Result Diagram: 08/03/16 0940 08/03/16 0940 Results 24 hrs Laboratory Tests Test 08/03/16 01:00 08/03/16 09:40 Vancomycin Level Trough 15.3 White Blood Count 6.0 Red Blood Count 3.87 L Hemoglobin 11.1 L Hematocrit 35.6 L Mean Corpuscular Volume 92.0 Mean Corpuscular Hemoglobin 28.7 L Mean Corpuscular Hemoglobin Concent 31.2 L Red Cell Distribution Width 14.1 Platelet Count 354 # Mean Platelet Volume 10.1 Neutrophils % 50.4 Lymphocytes % 30.7 Monocytes % 12.6 H Eosinophils % 5.5 Basophils % 0.5 Nucleated Red Blood Cells % 0.0 Neutrophils # 3.0 Lymphocytes # 1.8 Monocytes # 0.8 Eosinophils # 0.3 Basophils # 0.0 Nucleated Red Blood Cells # 0.0 Sodium Level 139 Potassium Level 4.3 Chloride Level 106 Carbon Dioxide Level 23 Anion Gap 14 Blood Urea Nitrogen 14 Creatinine 1.03 Glucose Level 98 Calcium Level 9.0 Medications Medications Current Medications Morphine Sulfate (morphine) 3 mg Q4H PRN IV FOR PAIN; Start 07/27/16 at 01:30 Acetaminophen (Tylenol Tab) 650 mg Q6H PRN PO PAIN AND OR ELEVATED TEMP Last administered on 07/27/16 17:50; Admin Dose 650 MG; Start 07/27/16 at 01:30 Ondansetron HCl (Zofran Inj) 4 mg Q6H PRN IV NAUSEA AND/OR VOMITING; Start 07/27 at 01:30 Heparin Sodium (Porcine) 5000 unit 5,000 unit BID SC Last administered on 09:06; Admin Dose 5,000 UNIT; Start 07/27/16 at 21:00 Ertapenem 1 gm/ Sodium Chloride 100 ml @ 200 mls/hr Q24H IVPB Last administered on 08/03/16 09:00; Admin Dose 200 MLS/HR; Start 07/31/16 at 09:00 Vancomycin HCl (Vancocin) 250 ml @ 125 mls/hr Q12H IVPB Last administered on 13:31; Admin Dose 125 MLS/HR; Start 08/01/16 at 02:00 DESHAUN OLMSTEAD Aug 03, 2016 18:01
--- NOTE | 2016-08-03 21:22 | CONS ---
PENELOPE GOMEZ NP 08/03/162: Date/Time of Note Date/Time of Note DATE: 08/03/16 TIME: 21:20 Assessment/Plan Assessment/Plan Chief Complaint/Hosp Course - sepsis due to recurrent abscess of LLE - 2.9 cm of 1 x 1.6 x 1.3 cm subcutaneous abscess in the medial upper L thigh ~ 16 cm superior to the medial tibial patella. - 1.2 x 1.1 x 2.6 cm subcutaneous abscess in the medial upper L knee ~4.6 cm superior to the medial tibial plateau. - s/p I&D; s/p bedside drainage of seromas by CTS in 06/2016; s/p JOSE MANUEL guided drainage on 07/28/2016. Cultures are negative. Cytology showed Acute fibrinoneutrophilic exudate and scanty inflamed granulation tissue, compatible with an abscess content. - h/o myocardial infarction/VF arrest, status post CABG x4. s/p vein harvest of LLE - History of atrial fibrillation. - Chronic cardiomyopathy. - Atrial fibrillation/atrial flutter. - h/o MRSA nares. - Anemia. - Pulmonary embolism in 2009. - h/o SBO - h/o basal cell carcinoma of the mid back, s/p excision in 2014. recommendations: - surgery f/u - continue IV vancomycin (07/26/16-) and ertapenem (07/31/16-) to complete a 14 day course or longer if fluid collection still noted; s/p cefepime - consider repeat soft tissue US of LLE before 08/08/16 to evaluate for residual fluid collection - Management d/w pt - Above d/w Dr. Quiroz Problems: Consultation Date/Type/Reason Admit Date/Time Jul 26, 2016 at 22:01 Initial Consult Date 07/27/16 Type of Consultation: Infectious Disease Referring Provider: EFREM RODRIGUEZ MD 24 HR Interval Summary Free Text/Dictation Pt requesting repeat I&D prior to PICC line insertion; "There seems to be a hard ball in the middle (of LLE lesion) that needs to be opened up and drained". C/o mild constipation; had small BM today. Denies CP, SOB, abd pain, n/v/d, dysuria. Exam/Review of Systems Vital Signs Vitals Vital Signs Date Time Temp Pulse Resp B/P Pulse Ox O2 Delivery O2 Flow Rate FiO2 08/03/16 08:16 98.2 66 20 134/63 97 Intake and Output 08/02/16 08/02/16 08/03/16 15:00 23:00 07:00 Intake Total 1310 ml 790 ml Output Total 1020 ml 1975 ml Balance 290 ml -1185 ml Exam Constitutional: alert, obese, oriented, well developed Psych: no complaints Head: atraumatic, normocephalic Neck: supple, No jvd Respiratory: clear to auscultation, normal air movement Cardiovascular: nl pulses, regular rate and rhythm Gastrointestinal: non-tender, soft Extremities: normal pulses, other (LLE dressing intact and stained with serosang) Neurological: nl mental status, nl speech Skin: nl turgor Results Result Diagram: 08/03/1693908/03/16 0940 Results 24 hrs Laboratory Tests Test 08/03/16 01:00 08/03/16 09:40 Vancomycin Level Trough 15.3 White Blood Count 6.0 Red Blood Count 3.87 L Hemoglobin 11.1 L Hematocrit 35.6 L Mean Corpuscular Volume 92.0 Mean Corpuscular Hemoglobin 28.7 L Mean Corpuscular Hemoglobin Concent 31.2 L Red Cell Distribution Width 14.1 Platelet Count 354 # Mean Platelet Volume 10.1 Neutrophils % 50.4 Lymphocytes % 30.7 Monocytes % 12.6 H Eosinophils % 5.5 Basophils % 0.5 Nucleated Red Blood Cells % 0.0 Neutrophils # 3.0 Lymphocytes # 1.8 Monocytes # 0.8 Eosinophils # 0.3 Basophils # 0.0 Nucleated Red Blood Cells # 0.0 Sodium Level 139 Potassium Level 4.3 Chloride Level 106 Carbon Dioxide Level 23 Anion Gap 14 Blood Urea Nitrogen 14 Creatinine 1.03 Glucose Level 98 Calcium Level 9.0 Medications Medications Current Medications Morphine Sulfate (morphine) 3 mg Q4H PRN IV FOR PAIN; Start 07/27/16 at 01:30 Acetaminophen (Tylenol Tab) 650 mg Q6H PRN PO PAIN AND OR ELEVATED TEMP Last administered on 07/27/16t 17:50; Admin Dose 650 MG; Start 07/27/16 at 01:30 Ondansetron HCl (Zofran Inj) 4 mg Q6H PRN IV NAUSEA AND/OR VOMITING; Start 07/27 at 01:30 Heparin Sodium (Porcine) 5000 unit 5,000 unit BID SC Last administered on 09:06; Admin Dose 5,000 UNIT; Start 07/27/16 at 21:00 Ertapenem 1 gm/ Sodium Chloride 100 ml @ 200 mls/hr Q24H IVPB Last administered on 08/03/16 09:00; Admin Dose 200 MLS/HR; Start 07/31/16 at 09:00 Vancomycin HCl (Vancocin) 250 ml @ 125 mls/hr Q12H IVPB Last administered on 13:31; Admin Dose 125 MLS/HR; Start 08/01/16 at 02:00 NATASHA QUIROZ M.D. 08/09/16 2350: Assessment/Plan Assessment/Plan Additional Assessment/Plan Richie attestation: I discussed the management with KESHAWN Gomez and agree with above. Exam/Review of Systems Results Result Diagram: 08/03/16 0940 08/03/16 0940 PENELOPE GOMEZ NP Aug 03, 2016 21:22 NATASHA QUIROZ M.D. Aug 09, 2016 23:50
[2016-08-03 22:50] VITALS: BP 124/60; PULSE 58; RESP 18
[2016-08-04] MEDS: VANCOMYCIN 1 GM in NS 250 ML IVPB SCH ×2 (02:45→13:20)
[2016-08-04 06:17] LABS: ADD SCAN DIFF NO
[2016-08-04 06:22] LABS: BASOPHILS % 0.3 % (0.0-2.0); EOSINOPHILS # 0.2 10^3/ul (0.0-0.5); EOSINOPHILS % 4.1 % (0.0-7.0); HEMATOCRIT 35.1 % (42.0-52.0); HEMOGLOBIN 11.3 g/dl (14.0-18.0); LYMPHOCYTES # 2.3 10^3/ul (0.8-2.9); LYMPHOCYTES % 38.9 % (15.0-51.0); MEAN CORPUSCULAR HEMOGLOBIN 29.4 pg (29.0-33.0); MEAN CORPUSCULAR HGB CONC 32.2 g/dl (32.0-37.0); MEAN CORPUSCULAR VOLUME 91.4 fl (82.0-101.0); MEAN PLATELET VOLUME 9.8 fl (7.4-10.4); MONOCYTE # 0.7 10^3/ul (0.3-0.9); MONOCYTES % 11.9 % (0.0-11.0); NEUTROPHIL # 2.6 10^3/ul (1.6-7.5); NEUTROPHILS % 44.3 % (39.0-77.0); PLATELET COUNT 322 10^3/UL (140-415); RED BLOOD COUNT 3.84 10^6/ul (4.70-6.10); RED CELL DISTRIBUTION WIDTH 14.1 % (11.5-14.5); WHITE BLOOD COUNT 5.9 10^3/ul (4.8-10.8)
[2016-08-04] MEDS: ERTAPENEM SODIUM 1 GM in SOD CHLORIDE 0.9% 100 ML IVPB SCH (08:20)
[2016-08-04] MEDS: HEPARIN 5,000 UNIT/0.5 ML VIAL SC SCH ×2 (08:36→21:01)
--- NOTE | 2016-08-04 16:36 | PN ---
Date/Time of Note Date/Time of Note DATE: 08/04/16 TIME: 16:35 Assessment/Plan VTE Prophylaxis VTE Prophylaxis Intervention: heparin Lines/Catheters IV Catheter Type (from Nrs): Saline Lock Urinary Cath still in place: No Assessment/Plan Chief Complaint/Hosp Course 1. Sepsis 2/2 left leg wound infection, status post aspiration and drainage- improved -pt still draining at wound site, surgery consult with Dr. Frank as patient may need another I&D, ID following 2. Coronary artery disease status post recent coronary artery bypass graft with Hx of myocardial infarction and cardiac arrest-stable 3. CHF with EF of 45%-stable 4. History of atrial fibrillation-stable 5 History of recent small-bowel obstruction 6. Status post acute kidney injury-stable PPx- Heparin Problems: Subjective 24 Hr Interval Summary Constitutional: no complaints Exam/Review of Systems Vital Signs Vitals Vital Signs Date Time Temp Pulse Resp B/P Pulse Ox O2 Delivery O2 Flow Rate FiO2 08/03/16 22:50 98.7 58 18 124/60 94 Room Air Intake and Output 08/03/16 08/03/16 08/04/16 15:00 23:00 07:00 Intake Total 1830 ml 250 ml Output Total 1750 ml 950 ml Balance 80 ml -700 ml Exam Constitutional: alert, oriented Respiratory: clear to auscultation Cardiovascular: regular rate and rhythm Gastrointestinal: soft, No distended Musculoskeletal: No nl extremities to inspection Results Result Diagram: 08/04/16 0552 08/03/16 0940 Results 24 hrs Laboratory Tests Test 08/04/16 05:52 White Blood Count 5.9 Red Blood Count 3.84 L Hemoglobin 11.3 L Hematocrit 35.1 L Mean Corpuscular Volume 91.4 Mean Corpuscular Hemoglobin 29.4 Mean Corpuscular Hemoglobin Concent 32.2 Red Cell Distribution Width 14.1 Platelet Count 322 Mean Platelet Volume 9.8 Neutrophils % 44.3 Lymphocytes % 38.9 Monocytes % 11.9 H Eosinophils % 4.1 Basophils % 0.3 Nucleated Red Blood Cells % 0.0 Neutrophils # 2.6 Lymphocytes # 2.3 Monocytes # 0.7 Eosinophils # 0.2 Basophils # 0.0 Nucleated Red Blood Cells # 0.0 Medications Medications Current Medications Morphine Sulfate (morphine) 3 mg Q4H PRN IV FOR PAIN; Start 4/3/17 at 01:30 Acetaminophen (Tylenol Tab) 650 mg Q6H PRN PO PAIN AND OR ELEVATED TEMP Last administered on 07/27/16 17:50; Admin Dose 650 MG; Start 07/27/16 at 01:30 Ondansetron HCl (Zofran Inj) 4 mg Q6H PRN IV NAUSEA AND/OR VOMITING; Start 07/27 at 01:30 Heparin Sodium (Porcine) 5000 unit 5,000 unit BID SC Last administered on 08:36; Admin Dose 5,000 UNIT; Start 07/27/16 at 21:00 Ertapenem 1 gm/ Sodium Chloride 100 ml @ 200 mls/hr Q24H IVPB Last administered on 08/04/16 08:20; Admin Dose 200 MLS/HR; Start 07/31/16 at 09:00 Vancomycin HCl (Vancocin) 250 ml @ 125 mls/hr Q12H IVPB Last administered on 13:20; Admin Dose 125 MLS/HR; Start 08/01/16 at 02:00 DESHAUN OLMSTEAD Aug 04, 2016 16:36
--- NOTE | 2016-08-04 19:32 | CONS ---
Date/Time of Note Date/Time of Note DATE: 08/04/16 TIME: 19:32 Assessment/Plan Assessment/Plan Chief Complaint/Hosp Course - sepsis due to recurrent abscess of LLE - 2.9 cm of 1 x 1.6 x 1.3 cm subcutaneous abscess in the medial upper L thigh ~ 16 cm superior to the medial tibial patella. - 1.2 x 1.1 x 2.6 cm subcutaneous abscess in the medial upper L knee ~4.6 cm superior to the medial tibial plateau. - s/p I&D; s/p bedside drainage of seromas by CTS in 06/2016; s/p JOSE MANUEL guided drainage on 07/28/2016. Cultures are negative. Cytology showed Acute fibrinoneutrophilic exudate and scanty inflamed granulation tissue, compatible with an abscess content. - h/o myocardial infarction/VF arrest, status post CABG x4. s/p vein harvest of LLE - History of atrial fibrillation. - Chronic cardiomyopathy. - Atrial fibrillation/atrial flutter. - h/o MRSA nares. - Anemia. - Pulmonary embolism in 2009. - h/o SBO - h/o basal cell carcinoma of the mid back, s/p excision in 2014. recommendations: - continue IV vancomycin (07/26/16-) and ertapenem (07/31/16-) to complete a 14 day course or longer if fluid collection still noted; s/p cefepime - consider repeat soft tissue US of LLE before 08/08/16 to evaluate for residual fluid collection - Management d/w pt and NISHI Bond - Above d/w Dr. Myles Problems: Consultation Date/Type/Reason Admit Date/Time Jul 26, 2016 at 22:01 Initial Consult Date 07/27/16 Type of Consultation: Infectious Disease Referring Provider: EFREM RODRIGUEZ MD 24 HR Interval Summary Free Text/Dictation Pt waiting for I&D prior to agreeing to PICC placement. Denies pain, SOB, n/v/d , dysuria, focal weakness. Seen by Dr. Frank who does not recommend further I&D. Exam/Review of Systems Vital Signs Vitals Vital Signs Date Time Temp Pulse Resp B/P Pulse Ox O2 Delivery O2 Flow Rate FiO2 08/03/16 22:50 98.7 58 18 124/60 94 Room Air Intake and Output 408/03/16 08/04/16 14:59 22:59 06:59 Intake Total 1830 ml 250 ml Output Total 1750 ml 950 ml Balance 80 ml -700 ml Exam Constitutional: alert, obese, oriented, well developed Psych: no complaints Head: atraumatic, normocephalic Neck: supple, No jvd Respiratory: clear to auscultation, normal air movement Cardiovascular: nl pulses, regular rate and rhythm Gastrointestinal: non-tender, soft Extremities: normal pulses, other (LLE dressing intact and stained with serosang) Neurological: nl mental status, nl speech Skin: nl turgor, other (soft mass, non-indurated, on LLE) ENMT: nl nasal mucosa & septum Results Result Diagram: 08/04/16 0552 08/03/16 0940 Results 24 hrs Laboratory Tests Test 08/04/16 05:52 White Blood Count 5.9 Red Blood Count 3.84 L Hemoglobin 11.3 L Hematocrit 35.1 L Mean Corpuscular Volume 91.4 Mean Corpuscular Hemoglobin 29.4 Mean Corpuscular Hemoglobin Concent 32.2 Red Cell Distribution Width 14.1 Platelet Count 322 Mean Platelet Volume 9.8 Neutrophils % 44.3 Lymphocytes % 38.9 Monocytes % 11.9 H Eosinophils % 4.1 Basophils % 0.3 Nucleated Red Blood Cells % 0.0 Neutrophils # 2.6 Lymphocytes # 2.3 Monocytes # 0.7 Eosinophils # 0.2 Basophils # 0.0 Nucleated Red Blood Cells # 0.0 Medications Medications Current Medications Morphine Sulfate (morphine) 3 mg Q4H PRN IV FOR PAIN; Start 07/27/16 at 01:30 Acetaminophen (Tylenol Tab) 650 mg Q6H PRN PO PAIN AND OR ELEVATED TEMP Last administered on 07/27/16 17:50; Admin Dose 650 MG; Start 07/27/16 at 01:30 Ondansetron HCl (Zofran Inj) 4 mg Q6H PRN IV NAUSEA AND/OR VOMITING; Start 07/27 at 01:30 Heparin Sodium (Porcine) 5000 unit 5,000 unit BID SC Last administered on 08:36; Admin Dose 5,000 UNIT; Start 07/27/16 at 21:00 Ertapenem 1 gm/ Sodium Chloride 100 ml @ 200 mls/hr Q24H IVPB Last administered on 08/04/16 08:20; Admin Dose 200 MLS/HR; Start 07/31/16 at 09:00 Vancomycin HCl (Vancocin) 250 ml @ 125 mls/hr Q12H IVPB Last administered on 13:20; Admin Dose 125 MLS/HR; Start 08/01/16 at 02:00 PENELOPE GOMEZ NP Aug 04, 2016 19:32
--- NOTE | 2016-08-04 20:01 | CONS ---
DATE OF ADMISSION: 07/26/2016 DATE OF CONSULTATION: 08/04/2016 TYPE OF CONSULTATION: Surgical. REFERRING PHYSICIAN: Dr. Bull Mai CHIEF COMPLAINT: 1. Left lower extremity wound. 2. BMI 31. HISTORY OF PRESENT ILLNESS: Mr. Patrick Rain is a 61-year-old male well known to me from previous hospitalization with multiple significant comorbidities who had a recent emergency 4-vessel CABG suc cessfully with a donor graft from the left lower extremity. He developed a donor site infection and abscess that was I and D'd and wound consultation is obtained for further evaluation and treatment. There are no current fevers, chills, cough, seizure, visual or neurologic changes. No dysuria. N o abdominal pain. No chest pain or shortness of breath. No significant drainage or pain on the lef t lower extremity. The swelling has improved. CBC is normal. There is no left shift. Chemistries within normal. The patient had soft tissue ultrasonic biopsy, which identified very minimal fluid that was mostly organized in the left calf. Surgical consult was obtained for further evaluation an d treatment. PAST MEDICAL HISTORY: 1. BMI 31. 2. Myocardial infarction. 3. VFib. 4. Cardiac arrest. 5. Coronary artery disease. 6. Left lower extremity abscess and cellulitis. 7. Atrial fibrillation. 8. PE in 2009. 9. Small-bowel obstruction. 10. Ventral hernia. 11. Basal cell carcinoma of the mid back. 12. Dyslipidemia. 13. Cardiomyopathy. 14. Systolic dysfunction with EF of 45%. PAST SURGICAL HISTORY: 1. Excision of upper back basal cell cancer. 2. CABG x4. 3. Balloon pump. 4. Abdominal surgery. MEDICATIONS: As per MAR. ALLERGIES: PER CHART. SOCIAL HISTORY: Denies alcohol, drugs, or tobacco. FAMILY HISTORY: Noncontributory. REVIEW OF SYSTEMS: A 12-point systems negative unless addressed in HPI. PHYSICAL EXAMINATION: VITAL SIGNS: Temperature is 98.7, pulse 50s to 70s, blood pressure 124/60, saturating 94% on room a ir. GENERAL: No acute distress, obese. HEENT: Pupils equal, reactive. No scleral icterus. Mucous membranes are moist. NECK: Supple, minimal JVD. PULMONARY: Normal respiratory effort. No wheezing. HEART: S1, S2 present and regular. ABDOMEN: Soft, nontender. EXTREMITIES: Lower extremities with darkened discoloration. Left medial calf with small wound. No palpable induration or fluctuance. No odor. No pus. VASCULAR: Capillary refill is 2 seconds. NEUROLOGIC: Alert, moves all 4 extremities grossly. LYMPHATICS: No inguinal or cervical lymphadenopathy. LABORATORY AND RADIOGRAPHIC: As per chart and HPI. ASSESSMENT AND PLAN: Mr. Patrick Rain is a 61-year-old male with multiple significant comorbiditie s. 1. Left lower extremity wound at the site of previous incision and drainage secondary to donor site infection and abscess. Continue local care. I do not feel any collection that needs to be further drained. Continue antibiotics. The patient's wound has been perfectly treated by the cardiothorac ic surgeon. 2. Left lower extremity cellulitis, status post antibiotic, improving. 3. Peripheral vascular disease. Continue medical optimization. 4. BMI of 31. The patient is highly encouraged to optimize his nutrition and exercise to improve h is overall health status. 5. History of coronary artery disease, myocardial infarction, cardiac arrest status post 4-vessel c oronary artery bypass graft, emergent. Continue cardiac optimization. 6. History of basal cell skin cancer, status post resection. Continue routine followup with oncolo gy and dermatology. 7. Anemia without evidence of acute blood loss. Continue monitoring. 8. Ventral hernia history without acute pathology. Continue medical management. Thank you very much for consulting me in this patient's care. Dictated By: GEORGES FLORES/NTS Conf#: [id number] DID#: [id number] CC: BULL MAI MD; RICARDA REYNOLDS MD;*EndCC*
[2016-08-04 20:16] VITALS: BP 125/63; RESP 18
[2016-08-05] MEDS: VANCOMYCIN 1 GM in NS 250 ML IVPB SCH ×2 (01:30→13:09)
[2016-08-05 06:11] LABS: CREATININE 1.04 mg/dl (0.61-1.24)
[2016-08-05 07:50] VITALS: BP 128/68; RESP 16
[2016-08-05] MEDS: ERTAPENEM SODIUM 1 GM in SOD CHLORIDE 0.9% 100 ML IVPB SCH (08:17)
[2016-08-05] MEDS: HEPARIN 5,000 UNIT/0.5 ML VIAL SC SCH (08:24)
--- NOTE | 2016-08-05 13:55 | PDOCDIS ---
Discharge Instructions CONDITION Patient Condition: Good HOME CARE INSTRUCTIONS: Special Diet: cardiac diet ACTIVITY: Activity Restrictions: No Restrictions FOLLOW UP/APPOINTMENTS Appointments F/U WITH YOUR PCP IN 1-2 WEEKS DESHAUN OLMSTEAD Aug 05, 2016 13:55
--- NOTE | 2016-08-05 14:21 | CONS ---
Date/Time of Note Date/Time of Note DATE: 08/05/16 TIME: 14:18 Assessment/Plan Assessment/Plan Chief Complaint/Hosp Course - sepsis due to recurrent abscess of LLE - 2.9 cm of 1 x 1.6 x 1.3 cm subcutaneous abscess in the medial upper L thigh ~ 16 cm superior to the medial tibial patella. - 1.2 x 1.1 x 2.6 cm subcutaneous abscess in the medial upper L knee ~4.6 cm superior to the medial tibial plateau. - s/p I&D; s/p bedside drainage of seromas by CTS in 06/2016; s/p JOSE MANUEL guided drainage on 07/28/2016. Cultures are negative. Cytology showed Acute fibrinoneutrophilic exudate and scanty inflamed granulation tissue, compatible with an abscess content. - h/o myocardial infarction/VF arrest, status post CABG x4. s/p vein harvest of LLE - History of atrial fibrillation. - Chronic cardiomyopathy. - Atrial fibrillation/atrial flutter. - h/o MRSA nares. - Anemia. - Pulmonary embolism in 2009. - h/o SBO - h/o basal cell carcinoma of the mid back, s/p excision in 2014. recommendations: - continue IV vancomycin (07/26/16-) and ertapenem (07/31/16-) to complete a 14 day course or longer if fluid collection still noted; s/p cefepime - encouraged patient to make an outpatient f/u with me for wound re-eval Problems: Consultation Date/Type/Reason Admit Date/Time Jul 26, 2016 at 22:01 Initial Consult Date 07/27/16 Type of Consultation: Infectious Disease Referring Provider: EFREM RODRIGUEZ MD 24 HR Interval Summary Free Text/Dictation d/w patient at length and nurse Sandy. Care coordinated. Exam/Review of Systems Vital Signs Vitals Vital Signs Date Time Temp Pulse Resp B/P Pulse Ox O2 Delivery O2 Flow Rate FiO2 08/05/16 07:50 98.4 60 16 128/68 93 08/03/16 22:50 Room Air Intake and Output 08/04/16 08/04/16 08/05/16 15:00 23:00 07:00 Intake Total 1550 ml 850 ml Output Total 0 ml Balance 1550 ml 850 ml Exam Constitutional: alert, oriented, well developed Psych: nl mood/affect, no complaints Head: atraumatic, normocephalic Eyes: EOMI, PERRL, nl conjunctiva, nl lids, nl sclera Respiratory: clear to auscultation, normal air movement Cardiovascular: nl pulses, regular rate and rhythm Gastrointestinal: nl liver, spleen, non-tender, soft Musculoskeletal: nl extremities to inspection, nl gait and stance Extremities: normal pulses, other (wound healing) Neurological: UMBRELLA REPAIRER II-XII intact, nl mental status, nl speech, nl strength Results Result Diagram: 08/04/16 0552 08/05/16 0455 Results 24 hrs Laboratory Tests Test 08/05/16 04:55 Blood Urea Nitrogen 17 Creatinine 1.04 Medications Medications Current Medications Morphine Sulfate (morphine) 3 mg Q4H PRN IV FOR PAIN; Start 07/27/16 at 01:30 Acetaminophen (Tylenol Tab) 650 mg Q6H PRN PO PAIN AND OR ELEVATED TEMP Last administered on 07/27/16 17:50; Admin Dose 650 MG; Start 07/27/16 at 01:30 Ondansetron HCl (Zofran Inj) 4 mg Q6H PRN IV NAUSEA AND/OR VOMITING; Start 07/27 at 01:30 Heparin Sodium (Porcine) 5000 unit 5,000 unit BID SC Last administered on 08:24; Admin Dose 5,000 UNIT; Start 07/27/16 at 21:00 Ertapenem 1 gm/ Sodium Chloride 100 ml @ 200 mls/hr Q24H IVPB Last administered on 08/05/16 08:17; Admin Dose 200 MLS/HR; Start 07/31/16 at 09:00 Vancomycin HCl (Vancocin) 250 ml @ 125 mls/hr Q12H IVPB Last administered on 13:09; Admin Dose 125 MLS/HR; Start 08/01/16 at 02:00 Miscellaneous Information (*Rx Drug Level Order Reminder*) VANCOMYCIN TROUGH AT 0100 ONCE ONCE XX ; Start 08/06/16 at 01:00; Stop 08/06/16 at 01:01 GÉNESIS HARRIS MD Aug 05, 2016 14:21
--- NOTE | 2016-08-05 14:31 | DS ---
DATE OF ADMISSION: 07/26/2016 DATE OF DISCHARGE: 08/05/2016 DISCHARGE DIAGNOSES: 1. Sepsis secondary to left wound infection status post incision and drainage as well as antibiotic s, now stable. Continue home p.o. antibiotics. 2. Coronary artery disease, status post recent CABG with history of myocardial infarction and cardi ac arrest, now stable. Continue cardiac medications. 3. Congestive heart failure with ejection fraction 45%, stable. Continue home medications. 4. History of atrial fibrillation, stable. 5. History of recent small bowel obstruction, stable. HOSPITAL COURSE: The patient is 61-year-old male with history of myocardial infarction, vfib cardia c arrest, status post CABG 5 weeks prior to this admission which was complicated by harvest site abs cess in the left lower extremity. The patient did have an incision and drainage. The patient does have a history of basal cell carcinoma in the past as well as small bowel obstruction. The patient presents with fever and chills secondary to his left leg infection. Sepsis was evidenced by fever, leukocytosis, and tachycardia. The patient was seen by his cardiothoracic surgeon, and the wound wa s aspirated and drain once again. The patient was continued on IV antibiotics, and his sepsis did r esolve. The patient was also evaluated by Dr. Chandler Frank of surgery who did not feel that the p atient needed any further I and D of that wound and recommended continuation of his p.o. antibiotics . The patient was doing well. On the day of discharge, the patient's vitals, labs, physical exam w ere stable. He had no further signs of sepsis. He had no acute complaints, and questions were answ ered. CONDITION ON DISCHARGE: Stable. DISPOSITION: To home. MEDICATIONS: The patient is to continue his usual home medications. No new medications were prescr ibed. FOLLOWUP: The patient is to follow up with his PCP in 1 to 2 weeks. Greater than 30 minutes was spent coordinating discharge for the patient. Dictated By: DESHAUN OLMSTEAD MD BS/NTS Conf#: [id number] DID#: [id number]
--- NOTE | 2016-08-07 00:12 | PN ---
Date/Time of Note Date/Time of Note DATE: 08/05/16 TIME: 10:10 Assessment/Plan Lines/Catheters IV Catheter Type (from [facility]): Saline Lock [facility] in Place (from [facility]): No Assessment/Plan Chief Complaint/Hosp Course 1. Left lower extremity wound at the site of previous incision and drainage secondary to donor site infection and abscess. Continue local care. I do not feel any collection that needs to be further drained. Continue antibiotics. The patient's wound has been perfectly treated by the cardiothoracic surgeon. 2. Left lower extremity cellulitis, status post antibiotic, improving. 3. Peripheral vascular disease. Continue medical optimization. 4. BMI of 31. The patient is highly encouraged to optimize his nutrition and exercise to improve his overall health status. 5. History of coronary artery disease, myocardial infarction, cardiac arrest status post 4-vessel coronary artery bypass graft, emergent. Continue cardiac optimization. 6. History of basal cell skin cancer, status post resection. Continue routine followup with oncology and dermatology. 7. Anemia without evidence of acute blood loss. Continue monitoring. 8. Ventral hernia history without acute pathology. Continue medical management. Thank you Late entry 08/05 Problems: Subjective 24 Hr Interval Summary No f/c. No n/v. No pain. No jacob/dizzy/visual or neuro changes. No dysuria. No cough. No sz. No dc from wound. Swelling has improved. Exam/Review of Systems Vital Signs Vitals Vital Signs Date Time Temp Pulse Resp B/P Pulse Ox O2 Delivery O2 Flow Rate FiO2 08/05/16 07:50 98.4 60 16 128/68 93 08/03/16 22:50 Room Air Exam Free Text/Dictation GENERAL: No acute distress, obese. HEENT: Pupils equal, reactive. No scleral icterus. Mucous membranes are moist. NECK: Supple, minimal JVD. PULMONARY: Normal respiratory effort. No wheezing. HEART: S1, S2 present and regular. ABDOMEN: Soft, nontender. EXTREMITIES: Lower extremities with darkened discoloration. Left medial calf with small wound. No palpable induration or fluctuance. No odor. No pus. VASCULAR: Capillary refill is 2 seconds. NEUROLOGIC: Alert, moves all 4 extremities grossly. LYMPHATICS: No inguinal or cervical lymphadenopathy. Results Result Diagram: 08/04/16 0552 08/05/16 0455 GEORGES HOBBS MD Aug 07, 2016 00:12
== END 2016-08-05 16:20 | disposition home or self-care (01) | DRG 862 ==
LOC: E/R 17:22 → MS2 22:01
PROVIDERS: ADMIT Internal Medicine; ATTEND Internal Medicine
PROC: 0Y9J3ZX Drainage of Left Lower Leg, Percutaneous Approach, Diagnostic (ICD-10-PCS; principal; 2016-07-28)
DX: T81.4XXA Infection following a procedure, initial encounter (principal); A41.9 Sepsis, unspecified organism; N17.9 Acute kidney failure, unspecified; I42.8 Other cardiomyopathies; L02.416 Cutaneous abscess of left lower limb; L03.116 Cellulitis of left lower limb; I25.10 Atherosclerotic heart disease of native coronary artery without angina pectoris; I73.9 Peripheral vascular disease, unspecified; I48.91 Unspecified atrial fibrillation; I25.5 Ischemic cardiomyopathy; Y83.8 Other surgical procedures as the cause of abnormal reaction of the patient, or of later complication, without mention of misadventure at the time of the procedure; I25.2 Old myocardial infarction; Z86.74 Personal history of sudden cardiac arrest; Z85.828 Personal history of other malignant neoplasm of skin; Z95.1 Presence of aortocoronary bypass graft; Z68.31 Body mass index [BMI] 31.0-31.9, adult
CPT/HCPCS: 36415; 71010; 73700; 76536; 76942; 80048; 80053; 80202; 81001; 81003; 82565; 83605; 83735; 84100; 84484; 84520; 85025; 85610; 85730; 87040; 87070; 87075; 87081; 87086; 87102; 88104; 88305; 93005; 96374; 96375; J0692; J1335; J1644; J3370; J7030; J7050; Q9967

== ENCOUNTER 2016-08-14 16:24 | Emergency (ER) | payer OTHER ==
[~2016-08-14] VITALS: Wt 106.0 kg
[2016-08-14] MEDS ORDERED: AMO500 PO (17:19)
--- NOTE | 2016-08-14 17:56 | ERD ---
ER Documentation Chief Complaint Date/Time DATE: 08/14/16 TIME: 17:51 Chief Complaint DENTAL PAIN SINCE YESTERDAY HPI This patient is a 61-year-old male with past medical history of cardiac issues presenting to the emergency department for top left molar pain ongoing for the past day. The patient denies redness, discharge, fevers, chills, or other symptoms at this time peer ROS All systems reviewed and are negative except as per history of present illness. Medications Home Meds Active Scripts Amoxicillin* (Amoxicillin*) 500 Mg Cap, 500 MG PO TID for 7 Days, #21 CAP Prov:RICARDA FAM PA-C 08/14/16 Amoxicillin/Potassium Clav (Amox-Clav 875-125 mg Tablet) 875-125 mg Tab, 1 TAB PO BID, #20 TAB Prov:MARIA R BECERRAP S. 07/21/16 Levofloxacin* (Levaquin*) 750 Mg Tablet, 750 MG PO DAILY, #10 TAB Prov:MAREK BECERRA S. 07/21/16 Lisinopril* (Lisinopril*) 10 Mg Tablet, 10 MG PO DAILY, #30 TAB 4 Refills Prov:MARIA R BECERRAP S. 06/24/16 Metoprolol Tartrate* (Lopressor*) 25 Mg Tab, 25 MG NGT BID, #60 TAB 4 Refills Prov:MAREK BECERRA S. 06/24/16 Clopidogrel Bisulfate (Clopidogrel) 75 Mg Tablet, 75 MG NGT DAILY, #30 TAB 8 Refills Prov:MARIA R BECERRAP S. 06/24/16 Atorvastatin* (Atorvastatin*) 80 Mg Tablet, 80 MG NGT HS, #30 TAB 4 Refills Prov:GREGORIO BECERRAEEP S. 06/24/16 Aspirin (Aspirin) 81 Mg Chew, 81 MG NGT DAILY, #30 TAB 4 Refills Prov:MAREK BECERRA S. 06/24/16 Allergies Allergies: Coded Allergies: No Known Allergy (Verified , 07/11/16) PMhx/Soc History of Surgery: Yes (CABG(2 WEEKS AGO),HIATAL HERNIA REPAIR(2009),REMOVAL OF SKIN CA AT BACK) Anesthesia Reaction: No Hx Neurological Disorder: No Hx Respiratory Disorders: No Hx Cardiac Disorders: Yes (HTN, NC, CABG) Hx Psychiatric Problems: No Hx Miscellaneous Medical Probl: No Hx Alcohol Use: No Hx Substance Use: No Hx Tobacco Use: No FmHx Noncontributory for chief complaint Physical Exam Vitals Vital Signs Date Time Temp Pulse Resp B/P Pulse Ox O2 Delivery O2 Flow Rate FiO2 08/14/16 16:28 99.0 71 18 180/81 99 Physical Exam Const: The patient is resting comfortably in no acute distress. Head: Atraumatic Eyes: Normal Conjunctiva ENT: Normal External Ears, Nose and Mouth. Examination of the gums reveals multiple missing teeth and an area of erythema and edema to the top left molar area. Neck: Full range of motion..~ No meningismus. Resp: Clear to auscultation bilaterally Cardio: Regular rate and rhythm, no murmurs Abd: Soft, non tender, non distended. Normal bowel sounds Skin: No petechiae or rashes Back: No midline or flank tenderness Ext: No cyanosis, or edema Neur: Awake and alert Psych: Normal Mood and Affect Procedures/MDM This patient is a 61-year-old male who presents to the emergency department for left upper mouth pain. Physical examination reveals slightly elevated blood pressure which I believe is secondary to pain. Patient's blood pressure was elevated (>120/80) but appears stable without evidence of hypertension emergency or urgency. The patient was counseled about the risks of hypertension and urged to pursue outpatient monitoring and therapy within a week with their primary care physician. Patient is stable for outpatient management with a prescription for amoxicillin. All questions and concerns were addressed. I have low suspicion for deep tissue infection, cellulitis, septicemia, or other emergent conditions. Patient agrees with the discharge plan and diagnosis. Strict ER return precautions discussed. The patient is to follow-up with his primary care physician within 2-3 days. Departure Diagnosis: Primary Impression: Pain, dental Condition: Fair Patient Instructions: Dental Abscess, Dental Pain Referrals: COMMUNITY CLINICS YOU HAVE RECEIVED A MEDICAL SCREENING EXAM AND THE RESULTS INDICATE THAT YOU DO NOT HAVE A CONDITION THAT REQUIRES URGENT TREATMENT IN THE EMERGENCY DEPARTMENT. FURTHER EVALUATION AND TREATMENT OF YOUR CONDITION CAN WAIT UNTIL YOU ARE SEEN IN YOUR DOCTORS OFFICE WITHIN THE NEXT 1-2 DAYS. IT IS YOUR RESPONSIBILITY TO MAKE AN APPOINTMENT FOR FOLOW-UP CARE. IF YOU HAVE A PRIMARY DOCTOR --you should call your primary doctor and schedule an appointment IF YOU DO NOT HAVE A PRIMARY DOCTOR YOU CAN CALL OUR PHYSICIAN REFERRAL HOTLINE AT IF YOU CAN NOT AFFORD TO SEE A PHYSICIAN YOU CAN CHOSE FROM THE FOLLOWING [facility] [address] [facility] [address] [facility] [address] [facility] [address] [facility] [address] [facility] [facility]. [address] Additional Instructions: Follow up with your PCP within the next 1-3 days for a more thorough evaluation and a possible referral to a specialist. Return the the emergency department immediately if symptoms worsen or change. If you have any questions regarding medications, ask your pharmacist or us before you leave. If any adverse reactions, occur while taking your medications, discontinue the treatment and return to the emergency department immediately. If any new or worsening symptoms, uncontrolled fevers, or other unexplained symptoms occur, return to the emergency department immediately. Take your medications as directed, and complete the entire course of treatment. RICARDA FAM PA-C Aug 14, 2016 17:56
== END 2016-08-14 18:52 | disposition home or self-care (01) ==
LOC: FTE 16:24
DX: K08.89 Other specified disorders of teeth and supporting structures (principal); I10 Essential (primary) hypertension; Z79.82 Long term (current) use of aspirin; Z85.828 Personal history of other malignant neoplasm of skin; Z95.1 Presence of aortocoronary bypass graft
CPT/HCPCS: 99283

== ENCOUNTER 2016-10-06 00:49 | Inpatient (IN) | payer OTHER ==
[~2016-10-06] VITALS: Ht 185.4 cm; Wt 112.5 kg
[~2016-10-06 00:49] MED LIST changes: +AMO500 PO
[2016-10-06] MEDS ORDERED: CEFEPIME 2GM/50 ML (PMX) 50 ML IVPB STA (01:48)
[2016-10-06] MEDS ORDERED: VANCOMYCIN 1 GM (PMX) 250 ML IVPB ONE (02:00)
--- NOTE | 2016-10-06 02:23 | RADRPT ---
PROCEDURE: CHEST - 1 VIEW CLINICAL INDICATION: 61-year-old male with shortness of breath and sepsis. TECHNIQUE: A single frontal AP supine view of the chest was performed. The images were reviewed o n a PACS workstation. COMPARISON: Chest x-ray July 26, 2016. FINDINGS: The patient has had a prior median sternotomy. The cardiomediastinal silhouette is mildly enlarged. The thoracic aortic arch is calcified. There is a shallow inspiration. There is mild bibasilar s ubsegmental atelectasis. There is no evidence for an infiltrate. There is no evidence for congesti ve heart failure. There is no evidence for pneumothorax. IMPRESSION: 1. Status post median sternotomy. 2. Cardiomegaly. 3. Calcified thoracic aortic arch. 4. Shallow inspiration. 5. Mild bibasilar subsegmental atelectasis. .Malcolm Jones MD, MD Date Time Electronically viewed and signed by .Malcolm Jones MD, on 10/06/2016 02:23 .M/
[2016-10-06 02:55] LABS: ADD SCAN DIFF NO
[2016-10-06 02:58] LABS: BASOPHILS % 0.1 % (0.0-2.0); EOSINOPHILS # 0.2 10^3/ul (0.0-0.5); EOSINOPHILS % 1.6 % (0.0-7.0); HEMATOCRIT 36.1 % (42.0-52.0); HEMOGLOBIN 11.2 g/dl (14.0-18.0); LYMPHOCYTES # 1.5 10^3/ul (0.8-2.9); MEAN CORPUSCULAR HEMOGLOBIN 27.6 pg (29.0-33.0); MEAN CORPUSCULAR VOLUME 88.9 fl (82.0-101.0); MEAN PLATELET VOLUME 10.1 fl (7.4-10.4); MONOCYTE # 1.1 10^3/ul (0.3-0.9); MONOCYTES % 10.5 % (0.0-11.0); NEUTROPHIL # 7.2 10^3/ul (1.6-7.5); NEUTROPHILS % 72.5 % (39.0-77.0); PLATELET COUNT 237 10^3/UL (140-415); RED BLOOD COUNT 4.06 10^6/ul (4.70-6.10); RED CELL DISTRIBUTION WIDTH 14.6 % (11.5-14.5)
[2016-10-06 03:14] LABS: INR 1.07; PROTIME 13.9 Sec (12.2-14.2); PT RATIO 1.1
[2016-10-06 03:15] LABS: PARTIAL THROMBOPLASTIN TIME 29.3 Sec (25.0-35.0)
[2016-10-06 03:24] LABS: ALANINE AMINOTRANSFERASE 29 IU/L (13-69); ALBUMIN 3.9 g/dl (3.3-4.9); ALBUMIN/GLOBULIN RATIO 1.21; ALKALINE PHOSPHATASE 67 IU/L (42-121); ANION GAP 9 (8-16); ASPARTATE AMINO TRANSFERASE 20 IU/L (15-46); BILIRUBIN,INDIRECT 0.5 mg/dl (0-1.1); BILIRUBIN,TOTAL 0.5 mg/dl (0.2-1.3); BLOOD UREA NITROGEN 18 mg/dl (7-20); CALCIUM 8.6 mg/dl (8.4-10.2); CARBON DIOXIDE 28 mmol/L (21-31); CHLORIDE 107 mmol/L (97-110); GLUCOSE 99 mg/dl (70-220); POTASSIUM 4.4 mmol/L (3.5-5.1); SODIUM 140 mmol/L (135-144); TOTAL PROTEIN 7.1 g/dl (6.1-8.1)
[2016-10-06 03:43] LABS: TROPONIN-I < 0.012 ng/ml (0.00-0.12)
[2016-10-06] MEDS ORDERED: ACETAMINOPHEN 325 MG TAB PO PRN (05:00)
[2016-10-06] MEDS ORDERED: DOCUSATE SODIUM 100 MG CAP PO PRN (05:00)
[2016-10-06] MEDS ORDERED: BISACODYL (EC) 5 MG TAB PO PRN (05:00)
[2016-10-06] MEDS ORDERED: ONDANSETRON 4 MG INJ IV PRN (05:00)
[2016-10-06 05:08] LABS: ADD UMIC YES; UR BILIRUBIN (Dip) NEGATIVE (NEGATIVE); UR BLOOD (Dip) NEGATIVE (NEGATIVE); UR CLARITY CLEAR (CLEAR); UR COLOR LT. YELLOW (YELLOW); UR GLUCOSE (Dip) NEGATIVE (NEGATIVE); UR KETONES (Dip) NEGATIVE (NEGATIVE); UR LEUKOCYTE ESTERASE (Dip) 1+ (NEGATIVE); UR NITRITE (Dip) POSITIVE (NEGATIVE); UR TOTAL PROTEIN (Dip) NEGATIVE (NEGATIVE); UR UROBILINOGEN (Dip) 0.2 E.U./dL (0.1-1.0)
[2016-10-06 05:18] LABS: UR BACTERIA MODERATE; UR SQUAMOUS EPITHELIAL CELL FEW; URINE RBCS 0-2 /HPF (0)
[2016-10-06] MEDS: PANTOPRAZOLE 40 MG INJ IV SCH (06:06)
[2016-10-06 06:15] VITALS: BP 138/61; PULSE 82; RESP 18
[2016-10-06 06:30] VITALS: Ht 185.4 cm; Wt 112.5 kg
--- NOTE | 2016-10-06 06:36 | HP ---
Date/Time of Note Date/Time of Note DATE: 10/06/16 TIME: 06:36 Assessment/Plan VTE Prophylaxis VTE Prophylaxis Intervention: LMWH Assessment/Plan Chief Complaint/Hosp Course This is a 61-year-old male [facility]: #1. Cellulitis/abscess: At the current time will start IV vancomycin pharmacy to dose. Will await any blood and urine cultures. consider consult infectious disease consider cardiothoracic consultation to evaluate. Will order soft tissue ultrasound for further evaluation. #2. UTI: Patient did complain of urinary frequency. UA was positive for nitrites and leuk esterase. Will start patient on ceftriaxone 1 g every 24 hours. Await urine cultures. #3 history of CABG with complication of harvest site: Currently on antibiotics for 1, consider cardiothoracic consult for evaluation of the harvest site. #4 history of cardiomyopathy with systolic dysfunction with EF of 45%. Continue current home medications #5 dyslipidemia: Continue statin #6 anemia: Hemoglobin of 11. Patient currently stable no active signs of bleeding. We will continue to monitor. #7DVT and GI prophylaxis: Lovenox, Protonix Problems: HPI/ROS Admit Date/Time Admit Date/Time Oct 06, 2016 at 02:58 Hx of Present Illness Chief complaint: Left lower extremity cellulitis. The patient is a 61-year-old male with a history of ME, vfib, cardiac arrest, status post coronary artery bypass graft complicated by harvest site abscess on the left lower extremity, status post incision and drainage, history of afib, PE in 2009, small bowel obstruction, basal cell carcinoma of the midback status post excision in 2014, dyslipidemia, and cardiomyopathy with systolic dysfunction with EF of 45% who presented to the emergency department with a left lower extremity cellulitis/abscess. Patient states that he noticed pain on the left lower extremity approximately 2 days ago. He states he may have had subjective fevers but did not check his temperature. Denies any nausea vomiting or shortness of breath or chest pain. Because he had previous complications with the harvest site and was on antibiotics he decided to come to the ER earlier for evaluation. Patient also states that he has been experiencing some urinary frequency. Allergies: NKDA Medications: See JANEEN NEELY Const: As per HPI Eyes : No pain discharge or redness or change in visual acuity ENT: No pain, sore throat, congestion, congestion, dysphagia or discharge Respiratory: No shortness of breath, cough, sputum, wheezing, or pleuritic pain Cardiovascular: No chest pain, palpitation, PND, or edema GI : no change in appetite, abdominal pain, nausea, vomiting, diarrhea, constipation, or change in the color his stool Genitourinary: No dysuria, hematuria, flank pain , discharge or CVA tenderness Musculoskeletal: No joint pain, back pain, neck pain, restricted range of motion in neck or joints Skin: As per HPI Neuro: No headache, dizziness, syncope, seizure, focal weakness Endocrine: No polyuria, polydipsia, temperature intolerance Psych: No hallucination, depression, anxiety or suicidal ideation PMH/Family/Social Past Medical History As per HPI Past Surgical History CABG, incarcerated hernia repair, hiatal hernia repair, and as stated above in the HPI Past Surgical Hx: coronary bypass surgery Family History Significant Family History: no pertinent family hx Social History Alcohol Use: none Smoking Status: Never smoker Drug Use: none Exam/Review of Systems Vital Signs Vitals Vital Signs Date Time Temp Pulse Resp B/P Pulse Ox O2 Delivery O2 Flow Rate FiO2 10/06/16 04:00 81 16 123/57 99 Room Air 10/06/16 00:52 98.1 Exam Exam General: Patient is well-developed well-nourished The patient is alert oriented -3 lying comfortably in bed. HEENT: Atraumatic, normocephalic. The pupils are equal, round and reactive. Extraocular motor are intact Neck: Supple with full range of motion. No rigidity or meningismus Chest: Nontender Lungs: Clear to auscultation bilaterally no crackles rales or wheezing Heart: Normal S1-S2, Regular rhythm and rate. No overt murmur appreciated Abdomen: Soft , nontender, nondistended , bowel sounds are present. No guarding no rebound tenderness , No masses or organomegaly. No costovertebral temporal angle mass Extremities: Normal to inspection, no edema no cyanosis Neurologic: Normal mental status, speech normal, cranial nerves II through XII are intact, motor and sensory are intact, no focal weakness Skin: Left lower extremity upper medial thigh cellulitis/abscess, mild erythema , no fluctuance noted area of induration approximately 3x 3 cm, mild tenderness to palpation Labs Result Diagram: 10/06/1621910/06/16 022 Medications Medications Current Medications Ondansetron HCl (Zofran Inj) 4 mg Q6H PRN IV NAUSEA AND/OR VOMITING; Start at 05:00 Acetaminophen (Tylenol Tab) 650 mg Q6H PRN PO PAIN LEVEL 1-3 OR FEVER; Start at 05:00 Docusate Sodium (Colace) 100 mg Q12H PRN PO CONSTIPATION; Start 10/06/16 at 05: 00 Bisacodyl (Dulcolax) 5 mg DAILY PRN PO CONSTIPATION; Start 10/06/16 at 05:00 Pantoprazole (Protonix Iv) 40 mg DAILY@06 IV Last administered on 10/06/16t 06: 06; Admin Dose 40 MG; Start 10/06/16 at 06:00 Enoxaparin Sodium (Lovenox) 40 mg DAILY SC ; Start 10/06/16 at 09:00 Aspirin (Aspirin) 81 mg DAILY NGT ; Start 10/06/16 at 09:00 Atorvastatin Calcium (Lipitor) 80 mg HS NGT ; Start 10/06/16 at 21:00 Clopidogrel Bisulfate (plaVIX) 75 mg DAILY NGT ; Start 10/06/16 at 09:00 Lisinopril (Zestril) 10 mg DAILY PO ; Start 10/06/16 at 09:00 Metoprolol Tartrate (Lopressor) 25 mg BID NGT ; Start 10/06/16 at 09:00 VANDANA COLON Oct 06, 2016 06:36
[2016-10-06] MEDS ORDERED: VANCOMYCIN IV PER PHARMACY XX SCH (07:30)
[2016-10-06 07:45] VITALS: BP 121/60; RESP 16
[2016-10-06] MEDS ORDERED: VANCOMYCIN 1 GM in NS 250 ML IVPB SCH (09:00)
[2016-10-06] MEDS: ASPIRIN 81 MG TAB NGT SCH (09:21)
[2016-10-06] MEDS: LISINOPRIL 10 MG TAB PO SCH (09:21)
[2016-10-06] MEDS: CLOPIDOGREL 75 MG TAB NGT SCH (09:22)
[2016-10-06] MEDS: METOPROLOL 25 MG TAB NGT SCH ×2 (09:22→21:38)
[2016-10-06] MEDS: ENOXAPARIN 40 MG/0.4 ML SYG SC SCH (09:23)
--- NOTE | 2016-10-06 11:39 | RADRPT ---
PROCEDURE: Ultrasound of the soft tissues of the left calf. CLINICAL INDICATION: Palpable lesion in the left calf. TECHNIQUE: High-resolution sonography of the left calf at the site of the palpable lesion was perf ormed in the axial and sagittal planes. COMPARISON: None FINDINGS: At the site of the palpable lesion in the left calf, there is a complex mass measuring 4.3 x 1.2 x 4 .1 cm. There is no other abnormality at the site of the palpable lesion. IMPRESSION: 1. Complex mass measuring 4.3 x 1.2 x 4.1 cm at the site of the palpable lesion in the left calf. 2. Any further management regarding the palpable lesion should be based on clinical grounds. RPTAT: QQ .Steve Lr MD, MD Date Time Electronically viewed and signed by .Steve Lr MD, on 10/06/2016 11:39 .R/
[2016-10-06] MEDS: CEFTRIAXONE 1 GM/50 ML (PMX) 50 ML IVPB SCH (12:49)
[2016-10-06 19:00] VITALS: BP 127/60; PULSE 83; RESP 18
[2016-10-06 20:09] VITALS: BP 108/52; RESP 18
[2016-10-06] MEDS: VANCOMYCIN 1.25 GM in SOD CHLORIDE 0.9% 250 ML IVPB SCH (21:37)
[2016-10-06] MEDS: ATORVASTATIN 80 MG TAB NGT SCH (21:38)
[2016-10-07 06:02] LABS: ADD SCAN DIFF NO
[2016-10-07 06:08] LABS: BASOPHILS % 0.1 % (0.0-2.0); EOSINOPHILS # 0.4 10^3/ul (0.0-0.5); EOSINOPHILS % 3.5 % (0.0-7.0); HEMATOCRIT 38.5 % (42.0-52.0); HEMOGLOBIN 12.8 g/dl (14.0-18.0); LYMPHOCYTES # 1.4 10^3/ul (0.8-2.9); LYMPHOCYTES % 13.6 % (15.0-51.0); MEAN CORPUSCULAR HEMOGLOBIN 29.4 pg (29.0-33.0); MEAN CORPUSCULAR HGB CONC 33.2 g/dl (32.0-37.0); MEAN CORPUSCULAR VOLUME 88.3 fl (82.0-101.0); MEAN PLATELET VOLUME 10.2 fl (7.4-10.4); MONOCYTE # 1.1 10^3/ul (0.3-0.9); MONOCYTES % 10.4 % (0.0-11.0); NEUTROPHIL # 7.4 10^3/ul (1.6-7.5); PLATELET COUNT 216 10^3/UL (140-415); RED BLOOD COUNT 4.36 10^6/ul (4.70-6.10); RED CELL DISTRIBUTION WIDTH 14.5 % (11.5-14.5); WHITE BLOOD COUNT 10.3 10^3/ul (4.8-10.8)
[2016-10-07] MEDS: PANTOPRAZOLE 40 MG INJ IV SCH (06:13)
[2016-10-07 06:50] LABS: ALBUMIN 3.7 g/dl (3.3-4.9); ALBUMIN/GLOBULIN RATIO 1.23; BILIRUBIN,INDIRECT 0.9 mg/dl (0-1.1); BILIRUBIN,TOTAL 0.9 mg/dl (0.2-1.3); CALCIUM 8.1 mg/dl (8.4-10.2); CREATININE 1.08 mg/dl (0.61-1.24); MAGNESIUM 1.8 mg/dl (1.7-2.5); POTASSIUM 3.9 mmol/L (3.5-5.1); TOTAL PROTEIN 6.7 g/dl (6.1-8.1)
[2016-10-07 06:55] LABS: CHOL/HDL RATIO 3.7 RATIO
[2016-10-07 07:55] VITALS: BP 118/56; RESP 20
[2016-10-07] MEDS: VANCOMYCIN 1.25 GM in SOD CHLORIDE 0.9% 250 ML IVPB SCH ×2 (08:48→21:45)
[2016-10-07] MEDS: CLOPIDOGREL 75 MG TAB NGT SCH (08:48)
[2016-10-07] MEDS: ASPIRIN 81 MG TAB NGT SCH (08:48)
[2016-10-07] MEDS: METOPROLOL 25 MG TAB NGT SCH ×2 (08:49→21:21)
[2016-10-07] MEDS: LISINOPRIL 10 MG TAB PO SCH (08:49)
[2016-10-07] MEDS: ENOXAPARIN 40 MG/0.4 ML SYG SC SCH (08:49)
--- NOTE | 2016-10-07 11:30 | PN ---
Date/Time of Note Date/Time of Note DATE: 10/07/16 TIME: 11:25 Assessment/Plan VTE Prophylaxis VTE Prophylaxis Intervention: LMWH Lines/Catheters IV [facility] [place] Assessment/Plan Chief Complaint/Hosp Course Assessment and plan 1. Cellulitis/abscess on left lower extremity. Will get ID consult to follow. Continue antibiotics. Follow-up on cultures. Of note ultrasound of area did show a complex mass measuring 4.2 x 1.2 x 4.1 cm 2. Reported UTI with positive urine nitrite test. Patient also with positive leukocyte esterase test. Follow-up on final urine cultures. Continue with antibiotics for now. ID consult to follow. 3. History of CABG. On antibiotics. Noted with suspect infection of graft site. Will consider vascular surgeon consult. Await ID input 4. History of cardiac myopathy with EF 45%. Continue optimization with cardiovascular medications 5. Dyspnea. Continue on statin DVT Provox: Lovenox GERD prophylaxis: Protonix Disposition plan: I consult to follow. Consider getting vascular surgeon consult for ID consult to follow. Await input. Continue antibiotics for now Discussed plan of care with Dr. Wasserman Problems: Subjective 24 Hr Interval Summary Free Text/Dictation Reports having some swelling and minimal pain on left inner lower extremity. Exam/Review of Systems Vital Signs Vitals Vital Signs Date Time Temp Pulse Resp B/P Pulse Ox O2 Delivery O2 Flow Rate FiO2 10/07/16 07:55 98.3 70 20 118/56 97 10/06/16 19:00 Room Air Intake and Output 10/06/16 10/06/16 10/07/16 15:00 23:00 07:00 Intake Total 300 ml 700 ml 250 ml Output Total 1200 ml Balance 300 ml -500 ml 250 ml Exam Constitutional: alert, oriented Psych: nl mood/affect Head: normocephalic Eyes: nl conjunctiva Neck: supple, No jvd Respiratory: normal air movement (Regular rate) Cardiovascular: other Gastrointestinal: non-tender, soft Extremities: edema (Bilateral lower extremities with noted brownish discoloration of bilateral lower extremities) Neurological: BLOCKER AND SEWER II-XII intact, nl mental status, nl speech Skin: other (With some swelling and erythema noted on left lower extremity ( right below left knee) with also mass) Results Result Diagram: 10/07/16 0430 10/07/16 0430 Results 24 hrs Laboratory Tests Test 10/07/16 04:30 White Blood Count 10.3 Red Blood Count 4.36 L Hemoglobin 12.8 L Hematocrit 38.5 L Mean Corpuscular Volume 88.3 Mean Corpuscular Hemoglobin 29.4 Mean Corpuscular Hemoglobin Concent 33.2 Red Cell Distribution Width 14.5 Platelet Count 216 Mean Platelet Volume 10.2 Neutrophils % 72.0 Lymphocytes % 13.6 L Monocytes % 10.4 Eosinophils % 3.5 Basophils % 0.1 Nucleated Red Blood Cells % 0.0 Neutrophils # 7.4 Lymphocytes # 1.4 Monocytes # 1.1 H Eosinophils # 0.4 Basophils # 0.0 Nucleated Red Blood Cells # 0.0 Sodium Level 141 Potassium Level 3.9 Chloride Level 108 Carbon Dioxide Level 24 Anion Gap 13 Blood Urea Nitrogen 14 Creatinine 1.08 Glucose Level 98 Hemoglobin A1c 5.7 Calcium Level 8.1 L Magnesium Level 1.8 Total Bilirubin 0.9 Direct Bilirubin 0.00 Indirect Bilirubin 0.9 Aspartate Amino Transf (AST/SGOT) 21 Alanine Aminotransferase (ALT/SGPT) 27 Alkaline Phosphatase 70 Total Protein 6.7 Albumin 3.7 Globulin 3.00 Albumin/Globulin Ratio 1.23 Triglycerides Level 70 Cholesterol Level 110 LDL Cholesterol, Calculated 67 HDL Cholesterol 29 L Cholesterol/HDL Ratio 3.7 Medications Medications Current Medications Ondansetron HCl (Zofran Inj) 4 mg Q6H PRN IV NAUSEA AND/OR VOMITING; Start at 05:00 Acetaminophen (Tylenol Tab) 650 mg Q6H PRN PO PAIN LEVEL 1-3 OR FEVER Last administered on 10/06/16 18:38; Admin Dose 650 MG; Start 10/06/16 at 05:00 Docusate Sodium (Colace) 100 mg Q12H PRN PO CONSTIPATION; Start 10/06/16 at 05: 00 Bisacodyl (Dulcolax) 5 mg DAILY PRN PO CONSTIPATION; Start 10/06/16 at 05:00 Pantoprazole (Protonix Iv) 40 mg DAILY@06 IV Last administered on 10/07/16 06: 13; Admin Dose 40 MG; Start 10/06/16 at 06:00 Enoxaparin Sodium (Lovenox) 40 mg DAILY SC Last administered on 10/07/16 08:49 ; Admin Dose 40 MG; Start 10/06/16 at 09:00 Aspirin (Aspirin) 81 mg DAILY NGT Last administered on 10/07/16 08:48; Admin Dose 81 MG; Start 10/06/16 at 09:00 Atorvastatin Calcium (Lipitor) 80 mg HS NGT Last administered on 10/06/16 21: 38; Admin Dose 80 MG; Start 10/06/16 at 21:00 Clopidogrel Bisulfate (plaVIX) 75 mg DAILY NGT Last administered on 10/07/16 08:48; Admin Dose 75 MG; Start 10/06/16 at 09:00 Lisinopril (Zestril) 10 mg DAILY PO Last administered on 10/07/16 08:49; Admin Dose 10 MG; Start 10/06/16 at 09:00 Metoprolol Tartrate 25 mg 25 mg BID NGT Last administered on 10/07/16 08:49; Admin Dose 25 MG; Start 10/06/16 at 09:00 Ceftriaxone Sodium 50 ml @ 100 mls/hr Q24H IVPB Last administered on 12:49; Admin Dose 100 MLS/HR; Start 10/06/16 at 12:00 Vancomycin HCl/ Sodium Chloride (Vancocin/NS) 250 ml @ 83.333 mls/ hr Q12 IVPB Last administered on 10/07/16 08:48; Admin Dose 83.333 MLS/HR; Start at 21:00 JHONATAN BENDER Oct 07, 2016 11:30
[2016-10-07] MEDS: CEFTRIAXONE 1 GM/50 ML (PMX) 50 ML IVPB SCH (13:52)
--- NOTE | 2016-10-07 17:53 | CONS ---
DATE OF ADMISSION: 10/06/2016 DATE OF CONSULTATION: 10/07/2016 TYPE OF CONSULTATION: Infectious Disease. REASON FOR CONSULTATION: Antibiotic management. HISTORY OF PRESENT ILLNESS: Patrick Rain is a pleasant 61-year-old white male with a number of pro blems who comes in with left lower extremity cellulitis. His past problems include: 1. Coronary artery disease. 2. Status post MRI. 3. History of cardiac arrest in ventricular fibrillation. 4. Status post coronary artery bypass graft, complicated by harvest site abscess of the left lower extremity, status post incision and drainage. The patient also had a pulmonary embolus in 2009. Ot her problems include: 1. Small-bowel obstruction. 2. Basal cell carcinoma of the mid back, status post excision in 2014. 3. Dyslipidemia. 4. Cardiomyopathy with systolic dysfunction with ejection fraction of 45%. The patient presents to the emergency room with left lower extremity cellulitis and abscess. He noticed pain on the left l ower extremity 2 days prior to admission. He may have had some subjective fevers. The patient was therefore admitted with cellulitis and abscess. PAST MEDICAL HISTORY: Operations as outlined. FAMILY HISTORY: Noncontributory. PAST SURGICAL HISTORY: Also includes an incarcerated hernia repair and also hiatal hernia repair. FAMILY HISTORY: Noncontributory. SOCIAL HISTORY: Does not smoke, drink or abuse drugs. ALLERGIES: NONE TO PENICILLIN, SULFA OR FOODS. MEDICATIONS: Per chart. REVIEW OF SYSTEMS: As per HPI. PHYSICAL EXAMINATION: GENERAL: The patient is a well-developed, well-nourished male who is alert, responsive, in no acute distress. VITAL SIGNS: Stable. He is afebrile. SKIN: Without generalized rash. HEENT: Within normal limits. NECK: Supple. LYMPH NODES: None palpable. THORAX: Status post coronary bypass. CHEST: Decreased breath sounds at the bases. HEART: Without murmur or gallop. ABDOMEN: Soft, nontender without organosplenomegaly or masses. EXTREMITIES: Without cyanosis or clubbing. He has some evidence of stasis dermatitis of both lower extremities, left lower extremity, upper medial thigh cellulitis with mild erythema without fluctua nce. He has an area of induration 3 x 3 cm. LABORATORY DATA: On admission, his white count was 10, H and H 11.2 and 36.1, platelet count 237,00 0. BUN and creatinine 18/1.20. HOSPITAL COURSE: Patient was also seen in followup by a nurse practitioner, Kirby. Currently, he is on vancomycin and ceftriaxone, which is reasonable. His soft tissue ultrasound shows a complex m ass measuring 4.3 x 1.2 x 4.1 cm at the site of the palpable lesion in the left calf. So surgery co nsultation is pending to see if this has to be drained. I will dictate my findings to the [facility]. Dictated By: MARISELA HALLMAN MD, JD/NORM Conf#: [id number] DID#: [id number]
[2016-10-07 21:14] VITALS: BP 109/53; RESP 19
[2016-10-07] MEDS: ATORVASTATIN 80 MG TAB NGT SCH (21:20)
[2016-10-08] MEDS: PANTOPRAZOLE (EC) 40 MG TAB PO SCH (06:07)
[2016-10-08 08:00] VITALS: BP 129/69; RESP 18
[2016-10-08] MEDS: ASPIRIN 81 MG TAB NGT SCH (10:19)
[2016-10-08] MEDS: METOPROLOL 25 MG TAB NGT SCH ×2 (10:20→20:10)
[2016-10-08] MEDS: CLOPIDOGREL 75 MG TAB NGT SCH (10:20)
[2016-10-08] MEDS: LISINOPRIL 10 MG TAB PO SCH (10:21)
[2016-10-08] MEDS: VANCOMYCIN 1.25 GM in SOD CHLORIDE 0.9% 250 ML IVPB SCH ×2 (10:21→20:09)
[2016-10-08] MEDS: ENOXAPARIN 40 MG/0.4 ML SYG SC SCH (10:22)
[2016-10-08] MEDS: CEFTRIAXONE 1 GM/50 ML (PMX) 50 ML IVPB SCH ×2 (11:57→14:59)
--- NOTE | 2016-10-08 12:27 | PN ---
DATE: 10/08/2016 SUBJECTIVE: Chart reviewed. No significant events noted. ID consultation noted. The patient naomi ins on IV antibiotics. PHYSICAL EXAMINATION: VITAL SIGNS: Blood pressure 129/69, pulse 63, respirations 18, temperature 98.6, saturating 95%. HEENT: Pupils are equal and reactive to light. Anicteric sclerae. NECK: Supple. No JVD. No cervical adenopathy. No carotid bruits heard. LUNGS: Fair breath sounds bilaterally. CARDIOVASCULAR: S1, S2 normal. ABDOMEN: Soft, nontender. No organomegaly or masses noted. EXTREMITIES: No clubbing or cyanosis noted. Left upper calf area has swelling, with some exudate co bernardo out upon applying pressure. NEUROLOGIC: Awake and alert. IMPRESSION: 1. Cellulitis and likely abscess. 2. Urinary tract infection. 3. History of coronary artery disease, status post coronary artery bypass graft. 4. History of cardiomyopathy, with an ejection fraction of 45%. 5. Dyslipidemia. RECOMMENDATIONS: 1. Continue current antibiotics. 2. Infectious disease followup. 3. Will get general surgical evaluation for possible I and D. 4. Discussed with the nursing staff. Dictated By: GREGORY HENRY MD, MA/NORM Conf#: [id number] DID#: [id number]
[2016-10-08 20:08] VITALS: BP 117/56; RESP 18
[2016-10-08] MEDS: ATORVASTATIN 80 MG TAB NGT SCH (20:09)
[2016-10-08] MEDS: CEPASTAT LOZENGE MT PRN (20:09)
--- NOTE | 2016-10-08 21:37 | PN ---
DATE: 10/08/2016 SUBJECTIVE: No acute changes. The patient is awake, lying comfortably in bed. No fevers overnight . LABORATORY DATA: No labs this morning. MICROBIOLOGY: Blood cultures remain negative. Urine culture grew E. coli. ANTIMICROBIALS: The patient is on: 1. Vancomycin. 2. Rocephin. PHYSICAL EXAMINATION: GENERAL: Obese, well-developed elderly man who is alert, in no distress. HEENT: Head atraumatic, normocephalic. Sclerae anicteric. Buccal mucosa pink. NECK: Supple. CHEST: Rise symmetrical. Breath sounds diminished to bases. HEART: S1, S2. ABDOMEN: Soft, bowel tones present. EXTREMITIES: Without cyanosis. Bilateral lower extremities with trace edema and erythema, left mor e than right. ASSESSMENT 1. Bilateral lower extremities, acute on chronic cellulitis, left more than right. 2. Coronary artery disease status post coronary artery bypass graft. 3. Cardiomyopathy. 4. Obesity. 5. Urinary tract infection. PLAN: The patient remains stable. Extremities look better. Pending surgical evaluation. Continue present care. Dictated By: MARY KAY COLON CYCLE REPAIRER for MARISELA HALLMAN MD NI/NTS Conf#: [id number] DID#: [id number] CC: VANDANA COLON MD;*EndCC*
[2016-10-08 21:55] VITALS: BP 149/72; PULSE 74
[2016-10-09] MEDS: CEPASTAT LOZENGE MT PRN (00:05)
[2016-10-09] MEDS ORDERED: IBUPROFEN 600 MG TAB PO ONE (01:00)
[2016-10-09] MEDS ORDERED: GUAIFENESIN/DM 5ML CUP PO PRN (04:30)
[2016-10-09] MEDS: PANTOPRAZOLE (EC) 40 MG TAB PO SCH (05:34)
[2016-10-09 07:06] LABS: CREATININE 1.03 mg/dl (0.61-1.24)
[2016-10-09 08:48] VITALS: BP 130/75; RESP 17
[2016-10-09] MEDS: METOPROLOL 25 MG TAB NGT SCH ×2 (09:12→21:21)
[2016-10-09] MEDS: CLOPIDOGREL 75 MG TAB NGT SCH (09:12)
[2016-10-09] MEDS: ASPIRIN 81 MG TAB NGT SCH (09:13)
[2016-10-09] MEDS: LISINOPRIL 10 MG TAB PO SCH (09:14)
[2016-10-09] MEDS: ENOXAPARIN 40 MG/0.4 ML SYG SC SCH (09:15)
[2016-10-09] MEDS: VANCOMYCIN 1.25 GM in SOD CHLORIDE 0.9% 250 ML IVPB SCH ×2 (09:16→23:26)
--- NOTE | 2016-10-09 11:21 | PN ---
Date/Time of Note Date/Time of Note DATE: 10/09/16 TIME: 11:01 Assessment/Plan VTE Prophylaxis VTE Prophylaxis Intervention: heparin Lines/Catheters IV [facility]ter Type (from [facility]): Saline Lock Assessment/Plan Chief Complaint/Hosp Course Assessment and plan: 61 M with: 1. Cellulitis/abscess on left lower extremity. On IV abx. Looking back at records, pt has had at least 2 prior I+D in this area (07/10 and 08/10). And ultrasound of area did show a complex mass measuring 4.2 x 1.2 x 4.1 cm this admission, thus noted with suspect infection of graft site. - continue IV abx, f/u ID consult rec's - Follow-up on cultures. - will consult gen surgery team, consider vasc surgery consult as well. 2. Reported UTI with positive urine nitrite test. Patient also with positive leukocyte esterase test. Follow-up on final urine cultures. Continue with antibiotics for now. ID consult to follow. 3. History of CABG. - continue current CV meds. 4. History of cardiac myopathy with EF 45%. Continue optimization with cardiovascular medications 5. Dyspnea. Continue on statin DVT Provox: Lovenox GERD prophylaxis: Protonix Problems: Subjective 24 Hr Interval Summary Free Text/Dictation No acute events overnight. Seen by ID team yesterday. Exam/Review of Systems Vital Signs Vitals Vital Signs Date Time Temp Pulse Resp B/P Pulse Ox O2 Delivery O2 Flow Rate FiO2 10/09/16 08:48 98.7 73 17 130/75 94 10/06/16 19:00 Room Air Intake and Output 10/08/16 10/08/16 10/09/16 15:00 23:00 07:00 Intake Total 250 ml 750 ml 730 ml Output Total 1100 ml 150 ml Balance 250 ml -350 ml 580 ml Exam HEENT: Pupils are equal and reactive to light. Anicteric sclerae. NECK: Supple. No JVD. No cervical adenopathy. No carotid bruits heard. LUNGS: Fair breath sounds bilaterally. CARDIOVASCULAR: S1, S2 normal. ABDOMEN: Soft, nontender. No organomegaly or masses noted. EXTREMITIES: No clubbing or cyanosis noted. Left upper calf area has swelling, with some exudate coming out upon applying pressure. NEUROLOGIC: Awake and alert. Results Result Diagram: 10/07/16 0430 10/09/16 0435 Results 24 hrs Laboratory Tests Test 10/09/16 04:35 Blood Urea Nitrogen 13 Creatinine 1.03 Medications Medications Current Medications Ondansetron HCl (Zofran Inj) 4 mg Q6H PRN IV NAUSEA AND/OR VOMITING; Start at 05:00 Acetaminophen (Tylenol Tab) 650 mg Q6H PRN PO PAIN LEVEL 1-3 OR FEVER Last administered on 10/06/16 18:38; Admin Dose 650 MG; Start 10/06/16 at 05:00 Docusate Sodium (Colace) 100 mg Q12H PRN PO CONSTIPATION Last administered on 01:18; Admin Dose 100 MG; Start 10/06/16 at 05:00 Bisacodyl (Dulcolax) 5 mg DAILY PRN PO CONSTIPATION; Start 10/06/16 at 05:00 Enoxaparin Sodium (Lovenox) 40 mg DAILY SC Last administered on 10/09/16 09:15 ; Admin Dose 40 MG; Start 10/06/16 at 09:00 Aspirin (Aspirin) 81 mg DAILY NGT Last administered on 10/09/16 09:13; Admin Dose 81 MG; Start 10/06/16 at 09:00 Atorvastatin Calcium (Lipitor) 80 mg HS NGT Last administered on 10/08/16 20: 09; Admin Dose 80 MG; Start 10/06/16 at 21:00 Clopidogrel Bisulfate (plaVIX) 75 mg DAILY NGT Last administered on 10/09/16 09:12; Admin Dose 75 MG; Start 10/06/16 at 09:00 Lisinopril (Zestril) 10 mg DAILY PO Last administered on 10/09/16 09:14; Admin Dose 10 MG; Start 10/06/16 at 09:00 Metoprolol Tartrate 25 mg 25 mg BID NGT Last administered on 10/09/16 09:12; Admin Dose 25 MG; Start 10/06/16 at 09:00 Ceftriaxone Sodium 50 ml @ 100 mls/hr Q24H IVPB Last administered on 14:59; Admin Dose 100 MLS/HR; Start 10/06/16 at 12:00 Vancomycin HCl/ Sodium Chloride (Vancocin/NS) 250 ml @ 83.333 mls/ hr Q12 IVPB Last administered on 10/09/16 09:16; Admin Dose 83.333 MLS/HR; Start at 21:00 Pantoprazole (Protonix Tab) 40 mg DAILY@06 PO Last administered on 10/09/16 05 :34; Admin Dose 40 MG; Start 10/08/16 at 06:00 Phenol (Cepastat Lozenge) 1 lozenge Q4 PRN MT COUGH Last administered on 00:05; Admin Dose 1 LOZENGE; Start 10/08/16 at 20:00 Guaifenesin/ Dextromethorphan (Robitussin Dm Liquid Cup) 10 ml Q4H PRN PO COUGH Last administered on 10/09/16 05:51; Admin Dose 10 ML; Start 10/09/16 at 04:30 MAREK BECERRA Oct 09, 2016 11:11
[2016-10-09] MEDS: CEFTRIAXONE 1 GM/50 ML (PMX) 50 ML IVPB SCH (12:42)
[2016-10-09] MEDS: IBUPROFEN 400 MG TAB PO PRN ×2 (13:15→21:21)
--- NOTE | 2016-10-09 13:58 | HP ---
DATE OF ADMISSION: 10/06/2016 TYPE OF CONSULTATION: VASCULAR SURGERY Dear Doctors, Mr. Rain is a 61-year-old gentleman with plethora of medical conditions who had unde rwent a recent coronary artery bypass graft that was complicated with harvest site cellulitis and ab scess formation. The patient underwent incision and drainage of that area and has had multiple recu rrent infections in the segment. The patient returns again with a new onset of fever and chills and tenderness in the upper calf area where he had a previous I and D done. At the moment, the patien t denies shortness of breath, chest pain, some fever and chills. No nausea, vomiting. Denies lower extremity claudication or rest pain. Patient does report some intermittent claudication. REVIEW OF SYSTEMS: A 14-point review performed and negative except what is mentioned in the HPI. PAST MEDICAL HISTORY: Entails coronary artery disease, MO, cardiac arrest, ventricular fibrillation , recurrent left lower extremity cellulitis, cardiomyopathy, dyslipidemia, congestive heart failure with systolic dysfunction, ejection fraction of 45%. PAST SURGICAL HISTORY: Incarcerated hernia repair, hiatal hernia repair, CABG, multiple I and D's. The patient also has had a history of a fib and PE, small-bowel obstruction, basal cell carcinoma o f his mid back, status post excision in 2014. FAMILY HISTORY: Positive for coronary artery disease. SOCIAL HISTORY: Denies current tobacco, alcohol or illicit drug use. Previous smoker. PHYSICAL EXAMINATION: GENERAL: Alert and oriented x3. HEENT: Normocephalic, atraumatic. EOMI. Mucosa moist. NECK: Supple. No carotid bruit. PULMONARY: Clear to auscultation bilaterally. No crackles. CARDIOVASCULAR: S1, S2 present. No murmurs. ABDOMEN: Soft, nontender, nondistended. Bowel sounds positive. EXTREMITIES: Lower extremities, palpable femoral pulse, nonpalpable pedal pulse. Motor, sensory in tact. Capillary refill 3 seconds. Presence of extensive lipodermatosclerosis from the ankle all th e way up to the upper calf. Varicose veins. On the medial aspect of the upper left calf, there is a 2 x 2 cm erythema, tender to touch with puru lent drainage. ASSESSMENT AND PLAN: Bilateral lower extremity atherosclerosis with intermittent claudication: It seems the patient has component of atherosclerotic disease which has not hampered his lifestyle. We will plan to obtain bilateral lower extremity vascular ultrasound to further delineate his arterial perfusion to his lower extremities. Bilateral lower extremity venous insufficiency and varicose veins: It seems the patient has a longs tanding history of lower extremity edema over the past 8 years with development of lipodermatosclero sis and edema. From the standpoint of his lower extremity venous insufficiency, we will plan to ob tain bilateral lower extremity venous reflux studies that are done as an outpatient and will plan to follow up with that with the patient. Left lower extremity abscess: ____upon evaluation of the wound performed debridement and manual com pression and it was identified that there was a foreign body within the segment. It seems that ther e was a piece of iodoform that had been retained in the wound and had not been removed. Discussed findings, plan and management with the patient and family member at the bedside and they u nderstand. Continue with antibiotics course of 10 to 14 days. The patient does have a cough that is recent. Would recommend ruling out pneumonia. Thank you for allowing us to partake in the care of your patient. Please call with any questions. Would recommend for dry dressing changes over the area of the drained abscess once a day. Dictated By: DELMI LI/NORM Conf#: [id number] DID#: [id number]
--- NOTE | 2016-10-09 16:43 | RADRPT ---
PROCEDURE: US bilateral lower extremity arteries. CLINICAL INDICATION: Bilateral leg pain. Claudication that interferes significantly with the aniyah ent's lifestyle. TECHNIQUE: Multiple longitudinal and transverse images of the bilateral lower extremity arteries w ere obtained with gallegos scale, pulsed Doppler, and color Doppler imaging. COMPARISON: No prior studies are available for comparison. FINDINGS: Right FAILURE ANALYSIS TECHNICIAN:134 cm/sec PSFA:119 cm/sec MSFA:137 cm/sec DSFA:123 cm/sec POP:99 cm/sec GAMING CAGE WORKER:110 cm/sec DPA:14 cm/sec Left FAILURE ANALYSIS TECHNICIAN:126 cm/sec PSFA:95 cm/sec MSFA:105 cm/sec DSFA:126 cm/sec POP:85 cm/sec GAMING CAGE WORKER:92 cm/sec DPA:22 cm/sec The right ankle-brachial index is 1.3 and the left ankle-brachial index is 1.3. There is normal triphasic flow throughout bilaterally. There is no significant plaque, stenosis, or occlusion. IMPRESSION: 1. Normal bilateral lower extremity arterial Doppler. RPTAT: QQ .Steve Lr MD, Date Time Electronically viewed and signed by .Steve Lr MD, on 10/09/2016 16:42 .R/
[2016-10-09 20:34] VITALS: BP 141/69; RESP 18
[2016-10-09] MEDS: ATORVASTATIN 80 MG TAB NGT SCH (21:21)
--- NOTE | 2016-10-09 21:54 | CONS ---
Date/Time of Note Date/Time of Note DATE: 10/09/16 TIME: 21:53 Assessment/Plan Assessment/Plan Chief Complaint/Hosp Course SUBJECTIVE: No acute changes. The patient is awake, nad. No fevers overnight. MICROBIOLOGY: Blood cultures remain negative. Urine culture grew E. coli. ANTIMICROBIALS: 1. Vancomycin. 2. Rocephin. PHYSICAL EXAMINATION: GENERAL: Obese, well-developed elderly man who is alert, in no distress. HEENT: Head atraumatic, normocephalic. Sclerae anicteric. Buccal mucosa pink. NECK: Supple. CHEST: Rise symmetrical. Breath sounds diminished to bases. HEART: S1, S2. ABDOMEN: Soft, bowel tones present. EXTREMITIES: Without cyanosis. Bilateral lower extremities with trace edema and erythema, left more than right. ASSESSMENT 1. Bilateral lower extremities, acute on chronic cellulitis, left more than right with ?abscess. 2. Coronary artery disease status post coronary artery bypass graft. 3. Cardiomyopathy. 4. Obesity. 5. Urinary tract infection. PLAN: The patient remains stable. Pending surgical evaluation. Continue present care/abx. DW staff Problems: Consultation Date/Type/Reason Admit Date/Time Oct 06, 2016 at 02:58 Initial Consult Date Type of Consultation: ID Exam/Review of Systems Vital Signs Vitals Vital Signs Date Time Temp Pulse Resp B/P Pulse Ox O2 Delivery O2 Flow Rate FiO2 10/09/16 20:34 99.9 88 18 141/69 97 10/06/16 19:00 Room Air Intake and Output 10/08/16 10/08/16 10/09/16 14:59 22:59 06:59 Intake Total 250 ml 750 ml 730 ml Output Total 1100 ml 150 ml Balance 250 ml -350 ml 580 ml Results Result Diagram: 10/07/16 0430 10/09/16 0435 Results 24 hrs Laboratory Tests Test 10/09/16 04:35 Blood Urea Nitrogen 13 Creatinine 1.03 Medications Medications Current Medications Ondansetron HCl (Zofran Inj) 4 mg Q6H PRN IV NAUSEA AND/OR VOMITING; Start at 05:00 Acetaminophen (Tylenol Tab) 650 mg Q6H PRN PO PAIN LEVEL 1-3 OR FEVER Last administered on 10/06/16t 18:38; Admin Dose 650 MG; Start 10/06/16 at 05:00 Docusate Sodium (Colace) 100 mg Q12H PRN PO CONSTIPATION Last administered on 01:18; Admin Dose 100 MG; Start 10/06/16 at 05:00 Bisacodyl (Dulcolax) 5 mg DAILY PRN PO CONSTIPATION; Start 10/06/16 at 05:00 Enoxaparin Sodium (Lovenox) 40 mg DAILY SC Last administered on 10/09/16 09:15 ; Admin Dose 40 MG; Start 10/06/16 at 09:00 Aspirin (Aspirin) 81 mg DAILY NGT Last administered on 10/09/16 09:13; Admin Dose 81 MG; Start 10/06/16 at 09:00 Atorvastatin Calcium (Lipitor) 80 mg HS NGT Last administered on 10/09/16 21: 21; Admin Dose 80 MG; Start 10/06/16 at 21:00 Clopidogrel Bisulfate (plaVIX) 75 mg DAILY NGT Last administered on 10/09/16 09:12; Admin Dose 75 MG; Start 10/06/16 at 09:00 Lisinopril (Zestril) 10 mg DAILY PO Last administered on 10/09/16 09:14; Admin Dose 10 MG; Start 10/06/16 at 09:00 Metoprolol Tartrate 25 mg 25 mg BID NGT Last administered on 10/09/16 21:21; Admin Dose 25 MG; Start 10/06/16 at 09:00 Ceftriaxone Sodium 50 ml @ 100 mls/hr Q24H IVPB Last administered on 12:42; Admin Dose 100 MLS/HR; Start 10/06/16 at 12:00 Vancomycin HCl/ Sodium Chloride (Vancocin/NS) 250 ml @ 83.333 mls/ hr Q12 IVPB Last administered on 10/09/16 09:16; Admin Dose 83.333 MLS/HR; Start at 21:00 Pantoprazole (Protonix Tab) 40 mg DAILY@06 PO Last administered on 10/09/16 05 :34; Admin Dose 40 MG; Start 10/08/16 at 06:00 Phenol (Cepastat Lozenge) 1 lozenge Q4 PRN MT COUGH Last administered on 00:05; Admin Dose 1 LOZENGE; Start 10/08/16 at 20:00 Guaifenesin/ Dextromethorphan (Robitussin Dm Liquid Cup) 10 ml Q4H PRN PO COUGH Last administered on 10/09/16 05:51; Admin Dose 10 ML; Start 10/09/16 at 04:30 Ibuprofen (Motrin) 400 mg Q6H PRN PO PAIN OR TEMP ABOVE 38C Last administered on 10/09/16 21:21; Admin Dose 400 MG; Start 10/09/16 at 13:30 MARY KAY COLON NP Oct 09, 2016 21:54
[2016-10-10] MEDS: PANTOPRAZOLE (EC) 40 MG TAB PO SCH (05:54)
[2016-10-10 06:04] LABS: ADD SCAN DIFF NO
[2016-10-10 06:22] LABS: BASOPHILS % 0.3 % (0.0-2.0); EOSINOPHILS # 0.4 10^3/ul (0.0-0.5); EOSINOPHILS % 6.5 % (0.0-7.0); HEMATOCRIT 40.2 % (42.0-52.0); HEMOGLOBIN 13.1 g/dl (14.0-18.0); LYMPHOCYTES # 1.2 10^3/ul (0.8-2.9); LYMPHOCYTES % 20.5 % (15.0-51.0); MEAN CORPUSCULAR HEMOGLOBIN 28.1 pg (29.0-33.0); MEAN CORPUSCULAR HGB CONC 32.6 g/dl (32.0-37.0); MEAN CORPUSCULAR VOLUME 86.3 fl (82.0-101.0); MEAN PLATELET VOLUME 10.3 fl (7.4-10.4); MONOCYTES % 17.4 % (0.0-11.0); NEUTROPHIL # 3.2 10^3/ul (1.6-7.5); NEUTROPHILS % 54.8 % (39.0-77.0); PLATELET COUNT 258 10^3/UL (140-415); RED BLOOD COUNT 4.66 10^6/ul (4.70-6.10); RED CELL DISTRIBUTION WIDTH 14.4 % (11.5-14.5); WHITE BLOOD COUNT 5.9 10^3/ul (4.8-10.8)
[2016-10-10 06:53] LABS: CALCIUM 9.1 mg/dl (8.4-10.2); CREATININE 1.12 mg/dl (0.61-1.24); POTASSIUM 4.8 mmol/L (3.5-5.1)
[2016-10-10 08:00] VITALS: BP 133/73; RESP 20
[2016-10-10] MEDS: ASPIRIN 81 MG TAB NGT SCH (09:06)
[2016-10-10] MEDS: CLOPIDOGREL 75 MG TAB NGT SCH (09:06)
[2016-10-10] MEDS: VANCOMYCIN 1.25 GM in SOD CHLORIDE 0.9% 250 ML IVPB SCH ×2 (09:06→22:12)
--- NOTE | 2016-10-10 09:07 | CONS ---
DATE OF ADMISSION: 10/06/2016 DATE OF CONSULTATION: REASON FOR CONSULTATION: Possible left calf abscess. HISTORY OF PRESENT ILLNESS: The patient is a 61-year-old gentleman who is status post coronary jeanna ry bypass which was complicated by harvest site infection and abscess formation. The patient presen ts with a nonhealing wound of the left medial calf. Ultrasound of this lesion showed a complex elvis ection but not an abscess. Yesterday the patient was seen by Dr. Alvarez Antonio who performed a lo mirta debridement and removed a retained segment of iodoform gauze. Since yesterday the wound has imp roved markedly with markedly decreased erythema and resolution of erythematous stranding. PAST MEDICAL HISTORY: As noted above. PAST SURGICAL HISTORY: Past surgeries include coronary artery bypass, hiatus hernia, incarcerated i ncisional hernia, surgery for small-bowel obstruction. REVIEW OF SYSTEMS: HEAD, EARS, EYES, NOSE AND THROAT: Unremarkable. CARDIAC: As in the HPI. PULMONARY: No history of pneumonia or shortness of breath. EXTREMITIES: As in the HPI. ABDOMEN: As in the HPI. PHYSICAL EXAMINATION: GENERAL: The patient is an alert, oriented 61-year-old male in no acute distress. HEAD, EYES, EARS, NOSE AND THROAT: Within normal limits. LUNGS: Clear. HEART: Regular rhythm. ABDOMEN: Soft and nontender. EXTREMITIES: There is a 2.5 cm indurated area with a 1 cm opening on the medial left calf. It appe ars to be clean and uninfected and healing. IMPRESSION: Retained gauze in the left calf wound causing continuing festering and inflammation. N ow that the gauze has been removed the patient can be treated with antibiotics and local wound care. Full resolution is expected. As there are no further surgical recommendations, I will sign off an d see again p.r.n. your request. Dictated By: ROSALINE CHO/NORM Conf#: [id number] DID#: [id number]
[2016-10-10] MEDS: LISINOPRIL 10 MG TAB PO SCH (09:13)
[2016-10-10] MEDS: ENOXAPARIN 40 MG/0.4 ML SYG SC SCH (09:14)
[2016-10-10] MEDS: METOPROLOL 25 MG TAB NGT SCH ×2 (09:14→21:10)
--- NOTE | 2016-10-10 12:02 | PN ---
Date/Time of Note Date/Time of Note DATE: 10/10/16 TIME: 11:58 Assessment/Plan VTE Prophylaxis VTE Prophylaxis Intervention: LMWH Lines/Catheters IV Catheter Type (from Nrs): Saline Lock Assessment/Plan Problems: (1) Chronic venous stasis dermatitis Status: Chronic Comment: Some this may have been due to the retained foreign body that is described by Dr. Antonio and Dr. Ying. However I suspect some of this is also chronic venous stasis venous insufficiency. We will continue supportive care as best we can and resolution of the cellulitis. (2) Onychomycosis Status: Chronic Comment: Pulse therapy with terbinafine (3) Essential hypertension Status: Chronic Comment: Continue current regimen which is effective (4) Hyperlipidemia Status: Chronic Comment: Continue statin therapy Qualifiers: Hyperlipidemia type: pure hypercholesterolemia Qualified Code: E78.00 - Pure hypercholesterolemia (5) Obesity (BMI 30.0-34.9) Status: Chronic Comment: Noted and stable (6) Cellulitis Status: Acute Comment: After removal of foreign body continue antibiotics expect decent outcome Qualifiers: Site of cellulitis of extremity: lower extremity Laterality: right (7) Status post aorto-coronary artery bypass graft Onset Date: ~ 05/2016 Status: Chronic Comment: Noted. Subjective 24 Hr Interval Summary Free Text/Dictation Patient reports he is feeling better and the leg although is still warm. Constitutional: improved (Denies further fevers chills or sweats) Respiratory: no complaints Cardiovascular: no complaints Gastrointestinal: no complaints Genitourinary: no complaints Exam/Review of Systems Vital Signs Vitals Vital Signs Date Time Temp Pulse Resp B/P Pulse Ox O2 Delivery O2 Flow Rate FiO2 10/10/16 08:00 98.6 80 20 133/73 96 10/06/16 19:00 Room Air Intake and Output 10/09/16 10/09/16 10/10/16 15:00 23:00 07:00 Intake Total 300 ml 540 ml 770 ml Output Total 1000 ml Balance 300 ml 540 ml -230 ml Exam Constitutional: alert, oriented Neck: non-tender, supple Respiratory: clear to auscultation, normal air movement Cardiovascular: nl pulses, regular rate and rhythm Extremities: other (Onychomycosis) Skin: other (Please see dictation from render from general surgery and vascular surgery.) Results Result Diagram: 10/10/16 0459 10/10/16 0459 Results 24 hrs Laboratory Tests Test 10/10/16 04:59 White Blood Count 5.9 # Red Blood Count 4.66 L Hemoglobin 13.1 L Hematocrit 40.2 L Mean Corpuscular Volume 86.3 Mean Corpuscular Hemoglobin 28.1 L Mean Corpuscular Hemoglobin Concent 32.6 Red Cell Distribution Width 14.4 Platelet Count 258 Mean Platelet Volume 10.3 Neutrophils % 54.8 Lymphocytes % 20.5 Monocytes % 17.4 H Eosinophils % 6.5 Basophils % 0.3 Nucleated Red Blood Cells % 0.0 Neutrophils # 3.2 Lymphocytes # 1.2 Monocytes # 1.0 H Eosinophils # 0.4 Basophils # 0.0 Nucleated Red Blood Cells # 0.0 Sodium Level 139 Potassium Level 4.8 Chloride Level 105 Carbon Dioxide Level 25 Anion Gap 14 Blood Urea Nitrogen 12 Creatinine 1.12 Glucose Level 89 Calcium Level 9.1 Medications Medications Current Medications Ondansetron HCl (Zofran Inj) 4 mg Q6H PRN IV NAUSEA AND/OR VOMITING; Start at 05:00 Acetaminophen (Tylenol Tab) 650 mg Q6H PRN PO PAIN LEVEL 1-3 OR FEVER Last administered on 10/06/16 18:38; Admin Dose 650 MG; Start 10/06/16 at 05:00 Docusate Sodium (Colace) 100 mg Q12H PRN PO CONSTIPATION Last administered on 01:18; Admin Dose 100 MG; Start 10/06/16 at 05:00 Bisacodyl (Dulcolax) 5 mg DAILY PRN PO CONSTIPATION; Start 10/06/16 at 05:00 Enoxaparin Sodium (Lovenox) 40 mg DAILY SC Last administered on 10/10/16 09:14 ; Admin Dose 40 MG; Start 10/06/16 at 09:00 Aspirin (Aspirin) 81 mg DAILY NGT Last administered on 10/10/16 09:06; Admin Dose 81 MG; Start 10/06/16 at 09:00 Atorvastatin Calcium (Lipitor) 80 mg HS NGT Last administered on 10/09/16 21: 21; Admin Dose 80 MG; Start 10/06/16 at 21:00 Clopidogrel Bisulfate (plaVIX) 75 mg DAILY NGT Last administered on 10/10/16 09:06; Admin Dose 75 MG; Start 10/06/16 at 09:00 Lisinopril (Zestril) 10 mg DAILY PO Last administered on 10/10/16 09:13; Admin Dose 10 MG; Start 10/06/16 at 09:00 Metoprolol Tartrate 25 mg 25 mg BID NGT Last administered on 10/10/16 09:14; Admin Dose 25 MG; Start 10/06/16 at 09:00 Ceftriaxone Sodium 50 ml @ 100 mls/hr Q24H IVPB Last administered on 12:42; Admin Dose 100 MLS/HR; Start 10/06/16 at 12:00 Vancomycin HCl/ Sodium Chloride (Vancocin/NS) 250 ml @ 83.333 mls/ hr Q12 IVPB Last administered on 10/10/16 09:06; Admin Dose 83.333 MLS/HR; Start at 21:00 Pantoprazole (Protonix Tab) 40 mg DAILY@06 PO Last administered on 10/10/16 05 :54; Admin Dose 40 MG; Start 10/08/16 at 06:00 Phenol (Cepastat Lozenge) 1 lozenge Q4 PRN MT COUGH Last administered on 00:05; Admin Dose 1 LOZENGE; Start 10/08/16 at 20:00 Guaifenesin/ Dextromethorphan (Robitussin Dm Liquid Cup) 10 ml Q4H PRN PO COUGH Last administered on 10/09/16 05:51; Admin Dose 10 ML; Start 10/09/16 at 04:30 Ibuprofen (Motrin) 400 mg Q6H PRN PO PAIN OR TEMP ABOVE 38C Last administered on 10/09/16 21:21; Admin Dose 400 MG; Start 10/09/16 at 13:30 Miscellaneous Information (*Rx Drug Level Order Reminder*) VANCOMYCIN TROUGH AT 1999 ONCE ONCE XX ; Start 10/10/16 at 20:00; Stop 10/10/16 at 20:01 GABBI ROBINS MD Oct 10, 2016 12:02
--- NOTE | 2016-10-10 12:15 | CONS ---
Date/Time of Note Date/Time of Note DATE: 10/10/16 TIME: 11:57 Assessment/Plan Assessment/Plan Chief Complaint/Hosp Course ID PROGRESS NOTE TOTAL ABX DAY # 5=> Vanco IV + Ceftriaxone 24H INTERVAL SUMMARY * A/A/O -> sitting up in chair, no fevers/chills, tells me wound has been managed by nurse who has been changing DSG with gauze insert into tunnelling leg wound. No culture seen on this admission, sent wound cx today after Dr. Ying removed retained gauze in wound. * Appreciate Dr. Ying's evaluation today: "Retained gauze in the left calf wound causing continuing festering and inflammation = was removed today" * 1. Normal bilateral lower extremity arterial Doppler. PHYSICAL EXAMINATION: GENERAL: 61 yo M = obese HEENT: Unremarkable except diminished vision NECK: Full ROM CHEST: Rise symmetrical=without dyspnea on observation HEART: Radial pulse RRR ABDOMEN: Soft, nondistended Left leg wound medial calf swabbed, swab easily inserts into wound tunnel of unknown depth SKIN: No diaphoresis, no rash ID ASSESSMENT: 61 yo obese M admit with: 1. SIRS on admission w/Temp 101.9 due to #2 & 3 = RESOLVED 2. Bilateral lower extremities, acute on chronic cellulitis, left more than right with ?abscess. * Per Surgery: Retained gauze in the left calf wound causing continuing festering and inflammation = REMOVED 10/10/16 3. Urinary tract infection. URINE CULTURE Final Organism 1 ESCHERICHIA COLI COLONY COUNT <10,000 CFU/ml 4. Bilateral feet/onychomycosis -> Lamisil per primary 5. Cardiomyopathy =ASHD * Coronary artery disease status post coronary artery bypass graft. INVASIVES: * CURRENT ABX: TOTAL ABX DAY # 5=> Vanco IV + Ceftriaxone ID RECOMMENDATIONS: 1. Continue current ABX 2. Wound cx obtained today -> f/u on results . Problems: Consultation Date/Type/Reason Admit Date/Time Oct 06, 2016 at 02:58 Initial Consult Date Type of Consultation: ID Exam/Review of Systems Vital Signs Vitals Vital Signs Date Time Temp Pulse Resp B/P Pulse Ox O2 Delivery O2 Flow Rate FiO2 10/10/16 08:00 98.6 80 20 133/73 96 10/06/16 19:00 Room Air Intake and Output 10/09/16 10/09/16 10/10/16 15:00 23:00 07:00 Intake Total 300 ml 540 ml 770 ml Output Total 1000 ml Balance 300 ml 540 ml -230 ml Results Result Diagram: 10/10/16 0459 10/10/16 0459 Results 24 hrs Laboratory Tests Test 10/10/16 04:59 White Blood Count 5.9 # Red Blood Count 4.66 L Hemoglobin 13.1 L Hematocrit 40.2 L Mean Corpuscular Volume 86.3 Mean Corpuscular Hemoglobin 28.1 L Mean Corpuscular Hemoglobin Concent 32.6 Red Cell Distribution Width 14.4 Platelet Count 258 Mean Platelet Volume 10.3 Neutrophils % 54.8 Lymphocytes % 20.5 Monocytes % 17.4 H Eosinophils % 6.5 Basophils % 0.3 Nucleated Red Blood Cells % 0.0 Neutrophils # 3.2 Lymphocytes # 1.2 Monocytes # 1.0 H Eosinophils # 0.4 Basophils # 0.0 Nucleated Red Blood Cells # 0.0 Sodium Level 139 Potassium Level 4.8 Chloride Level 105 Carbon Dioxide Level 25 Anion Gap 14 Blood Urea Nitrogen 12 Creatinine 1.12 Glucose Level 89 Calcium Level 9.1 Medications Medications Current Medications Ondansetron HCl (Zofran Inj) 4 mg Q6H PRN IV NAUSEA AND/OR VOMITING; Start at 05:00 Acetaminophen (Tylenol Tab) 650 mg Q6H PRN PO PAIN LEVEL 1-3 OR FEVER Last administered on 10/06/16 18:38; Admin Dose 650 MG; Start 10/06/16 at 05:00 Docusate Sodium (Colace) 100 mg Q12H PRN PO CONSTIPATION Last administered on 01:18; Admin Dose 100 MG; Start 10/06/16 at 05:00 Bisacodyl (Dulcolax) 5 mg DAILY PRN PO CONSTIPATION; Start 10/06/16 at 05:00 Enoxaparin Sodium (Lovenox) 40 mg DAILY SC Last administered on 10/10/16 09:14 ; Admin Dose 40 MG; Start 10/06/16 at 09:00 Aspirin (Aspirin) 81 mg DAILY NGT Last administered on 10/10/16 09:06; Admin Dose 81 MG; Start 10/06/16 at 09:00 Atorvastatin Calcium (Lipitor) 80 mg HS NGT Last administered on 10/09/16 21: 21; Admin Dose 80 MG; Start 10/06/16 at 21:00 Clopidogrel Bisulfate (plaVIX) 75 mg DAILY NGT Last administered on 10/10/16 09:06; Admin Dose 75 MG; Start 10/06/16 at 09:00 Lisinopril (Zestril) 10 mg DAILY PO Last administered on 10/10/16 09:13; Admin Dose 10 MG; Start 10/06/16 at 09:00 Metoprolol Tartrate 25 mg 25 mg BID NGT Last administered on 10/10/16 09:14; Admin Dose 25 MG; Start 10/06/16 at 09:00 Ceftriaxone Sodium 50 ml @ 100 mls/hr Q24H IVPB Last administered on 12:42; Admin Dose 100 MLS/HR; Start 10/06/16 at 12:00 Vancomycin HCl/ Sodium Chloride (Vancocin/NS) 250 ml @ 83.333 mls/ hr Q12 IVPB Last administered on 10/10/16 09:06; Admin Dose 83.333 MLS/HR; Start at 21:00 Pantoprazole (Protonix Tab) 40 mg DAILY@06 PO Last administered on 10/10/16 05 :54; Admin Dose 40 MG; Start 10/08/16 at 06:00 Phenol (Cepastat Lozenge) 1 lozenge Q4 PRN MT COUGH Last administered on 00:05; Admin Dose 1 LOZENGE; Start 10/08/16 at 20:00 Guaifenesin/ Dextromethorphan (Robitussin Dm Liquid Cup) 10 ml Q4H PRN PO COUGH Last administered on 10/09/16 05:51; Admin Dose 10 ML; Start 10/09/16 at 04:30 Ibuprofen (Motrin) 400 mg Q6H PRN PO PAIN OR TEMP ABOVE 38C Last administered on 10/09/16 21:21; Admin Dose 400 MG; Start 10/09/16 at 13:30 Miscellaneous Information (*Rx Drug Level Order Reminder*) VANCOMYCIN TROUGH AT 1999 ONCE ONCE XX ; Start 10/10/16 at 20:00; Stop 10/10/16 at 20:01 GÓMEZ GARCIA NP Oct 10, 2016 12:11
[2016-10-10] MEDS: CEFTRIAXONE 1 GM/50 ML (PMX) 50 ML IVPB SCH (12:16)
[2016-10-10] MEDS: TERBINAFINE 250 MG TAB PO SCH ×2 (13:56→21:06)
[2016-10-10 21:04] VITALS: BP 120/65; PULSE 69; RESP 20
[2016-10-10] MEDS: ATORVASTATIN 80 MG TAB NGT SCH (21:07)
[2016-10-11 00:22] VITALS: BP 137/70; RESP 19
[2016-10-11] MEDS: PANTOPRAZOLE (EC) 40 MG TAB PO SCH (05:26)
[2016-10-11 06:05] LABS: CREATININE 1.03 mg/dl (0.61-1.24)
[2016-10-11 08:06] VITALS: BP 117/69; RESP 16
[2016-10-11] MEDS: TERBINAFINE 250 MG TAB PO SCH ×2 (09:57→20:32)
[2016-10-11] MEDS: ASPIRIN 81 MG TAB NGT SCH (09:58)
[2016-10-11] MEDS: VANCOMYCIN 1.25 GM in SOD CHLORIDE 0.9% 250 ML IVPB SCH (09:58)
[2016-10-11] MEDS: CLOPIDOGREL 75 MG TAB NGT SCH (09:59)
[2016-10-11] MEDS: METOPROLOL 25 MG TAB NGT SCH ×2 (09:59→20:32)
[2016-10-11] MEDS: LISINOPRIL 10 MG TAB PO SCH (10:00)
[2016-10-11] MEDS: ENOXAPARIN 40 MG/0.4 ML SYG SC SCH (10:01)
--- NOTE | 2016-10-11 10:42 | PN ---
Date/Time of Note Date/Time of Note DATE: 10/11/16 TIME: 10:40 Assessment/Plan VTE Prophylaxis VTE Prophylaxis Intervention: heparin Lines/Catheters IV [facility] Saline Lock Assessment/Plan Problems: (1) Chronic venous stasis dermatitis Status: Chronic Comment: He is improving. With removal of some of the areas since we expect that he will have some improvement. Please note that his arterial Doppler study was normal (2) Status post aorto-coronary artery bypass graft Onset Date: ~ 05/2016 Status: Chronic Comment: Stable no evidence of coronary symptoms (3) Hyperlipidemia Status: Chronic Qualifiers: Hyperlipidemia type: pure hypercholesterolemia Qualified Code: E78.00 - Pure hypercholesterolemia (4) Essential hypertension Status: Chronic Comment: Adequate control (5) Onychomycosis Status: Chronic Comment: On pulse therapy. (6) Cellulitis Status: Acute Comment: Improving. Expect nice resolution. Probable discharge in morning Qualifiers: Site of cellulitis of extremity: lower extremity Laterality: right Subjective 24 Hr Interval Summary Free Text/Dictation Patient reports he is feeling better. No fever chills or sweats and leg pain is improved Constitutional: no complaints Respiratory: no complaints Cardiovascular: no complaints Gastrointestinal: no complaints Genitourinary: no complaints Exam/Review of Systems Vital Signs Vitals Vital Signs Date Time Temp Pulse Resp B/P Pulse Ox O2 Delivery O2 Flow Rate FiO2 10/11/16 08:06 97.7 56 16 117/69 93 10/10/16 21:04 Room Air Intake and Output 10/10/16 10/10/16 10/11/16 15:00 23:00 07:00 Intake Total 300 ml 920 ml 1450 ml Output Total 950 ml 2300 ml Balance 300 ml -30 ml -850 ml Exam Constitutional: alert, oriented Respiratory: clear to auscultation, normal air movement Cardiovascular: nl pulses, regular rate and rhythm Gastrointestinal: nl liver, spleen, non-tender, soft Extremities: other (Erythema and warmth are decreased. Wound where the packing was is closing nicely. Onychomycosis persists) Results Result Diagram: 10/10/16 0459 10/11/16 0445 Results 24 hrs Laboratory Tests Test 10/10/16 19:55 10/11/16 04:45 Vancomycin Level Trough 15.3 Blood Urea Nitrogen 13 Creatinine 1.03 Medications Medications Current Medications Ondansetron HCl (Zofran Inj) 4 mg Q6H PRN IV NAUSEA AND/OR VOMITING; Start at 05:00 Acetaminophen (Tylenol Tab) 650 mg Q6H PRN PO PAIN LEVEL 1-3 OR FEVER Last administered on 10/06/16 18:38; Admin Dose 650 MG; Start 10/06/16 at 05:00 Docusate Sodium (Colace) 100 mg Q12H PRN PO CONSTIPATION Last administered on 01:18; Admin Dose 100 MG; Start 10/06/16 at 05:00 Bisacodyl (Dulcolax) 5 mg DAILY PRN PO CONSTIPATION; Start 10/06/16 at 05:00 Enoxaparin Sodium (Lovenox) 40 mg DAILY SC Last administered on 10/11/16 10:01 ; Admin Dose 40 MG; Start 10/06/16 at 09:00 Aspirin (Aspirin) 81 mg DAILY NGT Last administered on 10/11/16 09:58; Admin Dose 81 MG; Start 10/06/16 at 09:00 Atorvastatin Calcium (Lipitor) 80 mg HS NGT Last administered on 10/10/16 21: 07; Admin Dose 80 MG; Start 10/06/16 at 21:00 Clopidogrel Bisulfate (plaVIX) 75 mg DAILY NGT Last administered on 10/11/16 09:59; Admin Dose 75 MG; Start 10/06/16 at 09:00 Lisinopril (Zestril) 10 mg DAILY PO Last administered on 10/11/16 10:00; Admin Dose 10 MG; Start 10/06/16 at 09:00 Metoprolol Tartrate 25 mg 25 mg BID NGT Last administered on 10/11/16 09:59; Admin Dose 25 MG; Start 10/06/16 at 09:00 Ceftriaxone Sodium 50 ml @ 100 mls/hr Q24H IVPB Last administered on 12:16; Admin Dose 100 MLS/HR; Start 10/06/16 at 12:00 Vancomycin HCl/ Sodium Chloride (Vancocin/NS) 250 ml @ 83.333 mls/ hr Q12 IVPB Last administered on 10/11/16 09:58; Admin Dose 83.333 MLS/HR; Start at 21:00 Pantoprazole (Protonix Tab) 40 mg DAILY@06 PO Last administered on 10/11/16 05 :26; Admin Dose 40 MG; Start 10/08/16 at 06:00 Phenol (Cepastat Lozenge) 1 lozenge Q4 PRN MT COUGH Last administered on 00:05; Admin Dose 1 LOZENGE; Start 10/08/16 at 20:00 Guaifenesin/ Dextromethorphan (Robitussin Dm Liquid Cup) 10 ml Q4H PRN PO COUGH Last administered on 10/09/16 05:51; Admin Dose 10 ML; Start 10/09/16 at 04:30 Ibuprofen (Motrin) 400 mg Q6H PRN PO PAIN OR TEMP ABOVE 38C Last administered on 10/09/16 21:21; Admin Dose 400 MG; Start 10/09/16 at 13:30 Terbinafine HCl (Lamisil) 250 mg BID PO Last administered on 10/11/16 09:57; Admin Dose 250 MG; Start 10/10/16 at 13:30; Stop 10/17/16 at 13:29 GABBI ROBINS MD Oct 11, 2016 10:42
--- NOTE | 2016-10-11 14:08 | CONS ---
Date/Time of Note Date/Time of Note DATE: 10/11/16 TIME: 14:00 Assessment/Plan Assessment/Plan Chief Complaint/Hosp Course SUBJECTIVE: No acute changes.The patient is awake. Denies pain. No fever. MICROBIOLOGY: Blood cultures remain negative. Urine culture grew E. coli. ANTIMICROBIALS: 1. Vancomycin. 2. Rocephin. PHYSICAL EXAMINATION: GENERAL: Obese, well-developed elderly man who is alert, in no distress. HEENT: Head atraumatic, normocephalic. Sclerae anicteric. Buccal mucosa pink. NECK: Supple. CHEST: Rise symmetrical. Breath sounds diminished to bases. HEART: S1, S2. ABDOMEN: Soft, bowel tones present. EXTREMITIES: Without cyanosis. Bilateral lower extremities with trace edema and erythema, left more than right. ASSESSMENT 1. Bilateral lower extremities, acute on chronic cellulitis, left more than right with ?abscess. 2. Coronary artery disease status post coronary artery bypass graft. 3. Cardiomyopathy. 4. Obesity. 5. Urinary tract infection. 6. Left Lower Extremity Infected Wound secondary to Retained Gauze. PLAN: The patient remains stable. Status Post surgical evaluation. Continue ABX. Follow up on Wound Culture. Anticipate Discharge Home on P.O. Bactrim or Doxycycline. staff. Problems: Consultation Date/Type/Reason Admit Date/Time Oct 06, 2016 at 02:58 Initial Consult Date Type of Consultation: ID Exam/Review of Systems Vital Signs Vitals Vital Signs Date Time Temp Pulse Resp B/P Pulse Ox O2 Delivery O2 Flow Rate FiO2 10/11/16 08:06 97.7 56 16 117/69 93 10/10/16 21:04 Room Air Intake and Output 10/10/16 10/10/16 10/11/16 15:00 23:00 07:00 Intake Total 300 ml 920 ml 1450 ml Output Total 950 ml 2300 ml Balance 300 ml -30 ml -850 ml Results Result Diagram: 10/10/16 0459 10/11/16 0445 Results 24 hrs Laboratory Tests Test 10/10/16 19:55 10/11/16 04:45 Vancomycin Level Trough 15.3 Blood Urea Nitrogen 13 Creatinine 1.03 Medications Medications Current Medications Ondansetron HCl (Zofran Inj) 4 mg Q6H PRN IV NAUSEA AND/OR VOMITING; Start at 05:00 Acetaminophen (Tylenol Tab) 650 mg Q6H PRN PO PAIN LEVEL 1-3 OR FEVER Last administered on 10/06/16 18:38; Admin Dose 650 MG; Start 10/06/16 at 05:00 Docusate Sodium (Colace) 100 mg Q12H PRN PO CONSTIPATION Last administered on 01:18; Admin Dose 100 MG; Start 10/06/16 at 05:00 Bisacodyl (Dulcolax) 5 mg DAILY PRN PO CONSTIPATION; Start 10/06/16 at 05:00 Enoxaparin Sodium (Lovenox) 40 mg DAILY SC Last administered on 10/11/16 10:01 ; Admin Dose 40 MG; Start 10/06/16 at 09:00 Aspirin (Aspirin) 81 mg DAILY NGT Last administered on 10/11/16 09:58; Admin Dose 81 MG; Start 10/06/16 at 09:00 Atorvastatin Calcium (Lipitor) 80 mg HS NGT Last administered on 10/10/16 21: 07; Admin Dose 80 MG; Start 10/06/16 at 21:00 Clopidogrel Bisulfate (plaVIX) 75 mg DAILY NGT Last administered on 10/11/16 09:59; Admin Dose 75 MG; Start 10/06/16 at 09:00 Lisinopril (Zestril) 10 mg DAILY PO Last administered on 10/11/16 10:00; Admin Dose 10 MG; Start 10/06/16 at 09:00 Metoprolol Tartrate 25 mg 25 mg BID NGT Last administered on 10/11/16 09:59; Admin Dose 25 MG; Start 10/06/16 at 09:00 Ceftriaxone Sodium (Rocephin) 50 ml @ 100 mls/hr Q24H IVPB Last administered on 10/10/16 12:16; Admin Dose 100 MLS/HR; Start 10/06/16 at 12:00 Pantoprazole (Protonix Tab) 40 mg DAILY@06 PO Last administered on 10/11/16 05 :26; Admin Dose 40 MG; Start 10/08/16 at 06:00 Phenol (Cepastat Lozenge) 1 lozenge Q4 PRN MT COUGH Last administered on 00:05; Admin Dose 1 LOZENGE; Start 10/08/16 at 20:00 Guaifenesin/ Dextromethorphan (Robitussin Dm Liquid Cup) 10 ml Q4H PRN PO COUGH Last administered on 10/09/16 05:51; Admin Dose 10 ML; Start 10/09/16 at 04:30 Ibuprofen (Motrin) 400 mg Q6H PRN PO PAIN OR TEMP ABOVE 38C Last administered on 10/09/16 21:21; Admin Dose 400 MG; Start 10/09/16 at 13:30 Terbinafine HCl 250 mg 250 mg BID PO Last administered on 10/11/16 09:57; Admin Dose 250 MG; Start 10/10/16 at 13:30; Stop 10/17/16 at 13:29 Vancomycin HCl (Vancocin) 250 ml @ 125 mls/hr Q12H IVPB ; Start 10/11/16 at 21: 00 BRYCE KEITH NP Oct 11, 2016 14:08
[2016-10-11] MEDS: CEFTRIAXONE 1 GM/50 ML (PMX) 50 ML IVPB SCH (15:23)
[2016-10-11] MEDS: VANCOMYCIN 1 GM in NS 250 ML IVPB SCH (20:31)
[2016-10-11] MEDS: ATORVASTATIN 80 MG TAB NGT SCH (20:32)
[2016-10-11 20:33] VITALS: BP 126/61; RESP 16
[2016-10-12] MEDS: PANTOPRAZOLE (EC) 40 MG TAB PO SCH (05:57)
[2016-10-12 07:54] VITALS: BP 101/55; RESP 18
[2016-10-12] MEDS: VANCOMYCIN 1 GM in NS 250 ML IVPB SCH (09:00)
[2016-10-12] MEDS: CLOPIDOGREL 75 MG TAB NGT SCH (09:00)
[2016-10-12] MEDS: ENOXAPARIN 40 MG/0.4 ML SYG SC SCH (09:00)
[2016-10-12] MEDS: ASPIRIN 81 MG TAB NGT SCH (09:00)
[2016-10-12] MEDS: LISINOPRIL 10 MG TAB PO SCH (09:00)
[2016-10-12] MEDS: METOPROLOL 25 MG TAB NGT SCH (09:00)
[2016-10-12] MEDS ORDERED: TERB250T46 PO (09:41)
[2016-10-12] MEDS ORDERED: SULF1TAB31 PO (09:41)
--- NOTE | 2016-10-12 09:48 | PDOCDIS ---
Discharge Instructions DIAGNOSIS Discharge Diagnosis: 1. Cellulitis of left lower extremity 2. onychomycosis bilateral feet 3. hy CONDITION Patient Condition: Stable HOME CARE INSTRUCTIONS: Diet Instructions: Reduced CalorieSpecial Diet: low cholestero/low fat FOLLOW UP/APPOINTMENTS Appointments 1. Follow-up with your primary care provider within a week JHOANTAN BENDER Oct 12, 2016 09:47
[2016-10-12] MEDS: TERBINAFINE 250 MG TAB PO SCH (11:38)
--- NOTE | 2016-10-12 16:50 | DS ---
Date/Time of Note Date/Time of Note DATE: 10/12/16 TIME: 16:43 Discharge Summary Admission/Discharge Info Admit Date/Time Oct 06, 2016 at 02:58 Discharge Date/Time Oct 12, 2016 at 12:52 Final Diagnosis 1. Cellulitis with suspected abscess on left lower extremity 2. History of CAD status post CABG. 3. Dyslipidemia 4. Essential hypertension 5. Onychomycosis Patient Condition: Stable Consults 1. Dr. Neal Zepeda 2. Dr. Boaz Ying 3. Dr. Pino [facility] Hospital Course This is a 61-year-old male with history of myocardial infarction, V. fib, cardiac arrest, status post CABG complicated by harvest site suspect abscess in the left lower extremity status post incision and drainage, basal cell carcinoma in the middle back status post excision 2014, dyslipidemia, cardiopathy, who came to [facility] due to cellulitis/suspect abscess on left lower extremity. Patient was seen by infectious disease physician as well as by surgeon for this issue. There is noted to be retained gauze in the left calf wound causing festering inflammation. Gauze was removed and patient was placed on antibiotics per ID recommendations. He did have good response and inflammation in the area did continue to subside. He did have good response to antibiotics as well. He was otherwise optimized medically. For his history of CAD and CABG she was resumed on statin as well as antiplatelet medication. He was continued on antihypertensives for his history of hypertension as well. He did have some onychomycosis on his bilateral feet and was placed on Lamisil. He was on statin medication for dyslipidemia. During his course of stay he did improve. The plan of care was discussed with the patient and patient did verbalizes understanding. On the day of discharge patient was in stable condition Discussed plan of care with Dr. Culp [facility] Active Scripts Sulfamethoxazole/Trimethoprim* (Bactrim Ds* Tablet) 1 Each Tablet, 1 TAB PO BID for 7 Days, TAB Prov:JHONATAN BENDER 10/12/16 Terbinafine* (Lamisil*) 250 Mg Tablet, 250 MG PO DAILY for 40 Days, TAB Prov:JHONATAN BENDER 10/12/16 Lisinopril* (Lisinopril*) 10 Mg Tablet, 10 MG PO DAILY, #30 TAB 4 Refills Prov:MAREK BECERRA. 06/24/16 Metoprolol Tartrate* (Lopressor*) 25 Mg Tab, 25 MG NGT BID, #60 TAB 4 Refills Prov:MAREK BECERRA S. 06/24/16 Clopidogrel Bisulfate (Clopidogrel) 75 Mg Tablet, 75 MG NGT DAILY, #30 TAB 8 Refills Prov:MAREK BECERRA S. 06/24/16 Atorvastatin* (Atorvastatin*) 80 Mg Tablet, 80 MG NGT HS, #30 TAB 4 Refills Prov:MAREK BECERRA S. 06/24/16 Aspirin (Aspirin) 81 Mg Chew, 81 MG NGT DAILY, #30 TAB 4 Refills Prov:MAREK BECERRA S. 06/24/16 Discontinued Scripts Amoxicillin* (Amoxicillin*) 500 Mg Cap, 500 MG PO TID for 7 Days, #21 CAP Prov:RICARDA FAM PA-C 08/14/16 Amoxicillin/Potassium Clav (Amox-Clav 875-125 mg Tablet) 875-125 mg Tab, 1 TAB PO BID, #20 TAB Prov:MAREK BECERRA S. 07/21/16 Levofloxacin* (Levaquin*) 750 Mg Tablet, 750 MG PO DAILY, #10 TAB Prov:MAREK BECERRA S. 07/21/16 Follow-up Plan CONDITION Patient Condition: Stable HOME CARE INSTRUCTIONS: Diet Instructions: Reduced CalorieSpecial Diet: low cholestero/low fat FOLLOW UP/APPOINTMENTS Appointments 1. Follow-up with your primary care provider within a week Primary Care Provider [facility] JHONATAN BENDER Oct 12, 2016 16:50
--- NOTE | 2016-10-13 00:10 | PN ---
DATE: 10/12/2016 SUBJECTIVE: No events overnight. The patient is alert, wants to go home. Feels good. No fevers. PHYSICAL EXAMINATION: GENERAL: Well-developed elderly man who is alert, in no distress. HEENT: Head atraumatic, normocephalic. Sclerae anicteric. Buccal mucosa pink. NECK: Supple. CHEST: Rise symmetrical. Breath sounds clear. HEART: S1, S2. ABDOMEN: Soft, bowel tones present. EXTREMITIES: Without cyanosis with left lower extremity resolving erythema. ASSESSMENT: 1. Bilateral lower extremity chronic venous stasis. 2. Resolving left lower extremity cellulitis, status post retained gauze removed. 3. History of coronary artery bypass graft. 4. Status post urinary tract infection. 5. Cardiomyopathy. PLAN: The patient remains stable. Anticipate discharge on oral Bactrim or doxycycline once cleared by podiatry. Dictated By: MARY KAY COLON MULTILITH OPERATOR for MARISELA HALLMAN MD NI/NTS Conf#: [id number] DID#: [id number] CC: VANDANA COLON MD;*EndCC*
== END 2016-10-12 12:52 | disposition home or self-care (01) | DRG 603 ==
LOC: E/R 00:49 → PP2 02:58
PROVIDERS: ADMIT Family Medicine; ATTEND Family Medicine
PROC: 0HCLXZZ Extirpation of Matter from Left Lower Leg Skin, External Approach (ICD-10-PCS; principal; 2016-10-06)
DX: L02.416 Cutaneous abscess of left lower limb (principal); I42.9 Cardiomyopathy, unspecified; Z86.74 Personal history of sudden cardiac arrest; N39.0 Urinary tract infection, site not specified; B35.1 Tinea unguium; L03.116 Cellulitis of left lower limb; E78.5 Hyperlipidemia, unspecified; D64.9 Anemia, unspecified; I25.2 Old myocardial infarction; Z95.1 Presence of aortocoronary bypass graft; Z86.711 Personal history of pulmonary embolism; Z85.9 Personal history of malignant neoplasm, unspecified; Z87.2 Personal history of diseases of the skin and subcutaneous tissue; I25.10 Atherosclerotic heart disease of native coronary artery without angina pectoris; I70.213 Atherosclerosis of native arteries of extremities with intermittent claudication, bilateral legs; I83.93 Asymptomatic varicose veins of bilateral lower extremities; B96.20 Unspecified Escherichia coli [E. coli] as the cause of diseases classified elsewhere; M79.5 Residual foreign body in soft tissue; L03.115 Cellulitis of right lower limb
CPT/HCPCS: 71010; 76536; 80048; 80053; 80061; 80202; 81001; 82565; 83036; 83605; 83735; 84484; 84520; 85025; 85610; 85730; 87040; 87086; 93005; 93922; C9113; J0692; J0696; J1650; J3370; J7050

== ENCOUNTER 2017-05-19 23:43 | Emergency (ER) | END 2017-05-20 03:18 | disposition home or self-care (01) ==

== ENCOUNTER 2017-07-25 07:22 | Emergency (ER) | END 2017-07-25 12:37 | disposition home or self-care (01) ==

== ENCOUNTER 2017-12-12 01:51 | Inpatient (IN) | END 2017-12-14 11:05 | disposition home or self-care (01) | DRG 390 ==

== ENCOUNTER 2018-05-19 14:15 | Inpatient (IN) | payer OTHER ==
[~2018-05-19] VITALS: Ht 185.4 cm; Wt 118.0 kg
[~2018-05-19 14:15] MED LIST changes: -AMO500 PO; -AMOX1TAB10 PO; +ASPI-831 PO; -ASPI81TA3 NGT; +ATOR-2 PO; -ATOR80TA75 NGT; +CARI350T29 PO; +HYDR-3609 PO; -LEVO750T25 PO; -METO-448 NGT; +METO-448 PO; +SILD20TA PO; +TERB250T46 PO
[2018-05-19] MEDS ORDERED: SOD CHLORIDE 0.9% 1,000 ML IV STA (19:05)
[2018-05-19] MEDS ORDERED: ASPI-817 PO (19:10)
[2018-05-19] MEDS ORDERED: CLOP75TA19 PO (19:11)
[2018-05-19] MEDS ORDERED: ATOR-2 PO (19:11)
--- NOTE | 2018-05-19 20:12 | ERD ---
ER Documentation Chief Complaint Chief Complaint mid AP since AM, nausea, 'regurgitating feeling' hx 'twisted up intestines' HPI This is a 63-year-old man who is complaining of diarrhea this morning x1 as well as nonbloody. He says he had some diffuse abdominal cramps with some reflux and he was concerned he has a bowel obstruction again he had the same symptoms when he had a bowel obstruction twice before., However, he states now he feels a lot better. Says he has some slight left lower quadrant tenderness/pain. No vomiting no fever no chest pain or difficulty breathing no melena ROS All systems reviewed and are negative except as per history of present illness. Medications Home Meds Reported Medications Atorvastatin* (Atorvastatin*) 80 Mg Tablet, 80 MG PO QHS, #30 TAB 05/19/18 Clopidogrel Bisulfate* (Clopidogrel Bisulfate*) 75 Mg Tablet, 75 MG PO DAILY, #30 TAB 05/19/18 Aspirin* (Aspirin* EC) 81 Mg Tablet.dr, 81 MG PO DAILY, TAB 05/19/18 Discontinued Reported Medications Sildenafil Citrate* (Sildenafil Citrate*) 20 Mg Tablet, 1 TAB PO DAILY PRN for NOTE 12/13/17 Hydrocodone/Acetaminophen (Hydrocodone-Acetamin 10-325 mg) 1 Each Tablet, 1 TAB PO BID PRN for PAIN 12/13/17 Carisoprodol* (Carisoprodol*) 350 Mg Tablet, 350 MG PO DAILY 12/13/17 Discontinued Scripts Metoprolol Tartrate* (Lopressor*) 25 Mg Tab, 25 MG PO BID, #60 TAB Prov:FLORENCIO CLAUDIO MD 12/14/17 Atorvastatin* (Atorvastatin*) 80 Mg Tablet, 80 MG PO HS, #30 TAB 4 Refills Prov:FLORENCIO CLAUDIO MD 12/14/17 Aspirin (Aspirin) 81 Mg Chew, 81 MG PO DAILY, #30 TAB 4 Refills Prov:FLORENCIO CLAUDIO MD 12/14/17 Terbinafine* (Lamisil*) 250 Mg Tablet, 250 MG PO DAILY for 40 Days, TAB Prov:JHONATAN BENDER 10/12/16 Lisinopril* (Lisinopril*) 10 Mg Tablet, 10 MG PO DAILY, #30 TAB 4 Refills Prov:MAREK BECERRA 06/24/16 Clopidogrel Bisulfate (Clopidogrel) 75 Mg Tablet, 75 MG NGT DAILY, #30 TAB 8 Refills Prov:MAREK BECERRA. 06/24/16 Allergies Allergies: Coded Allergies: acetaminophen (Verified Allergy, Intermediate, RASH, 05/19/18) PMhx/Soc History of Surgery: Yes (2009 abd Hernia repair, CABG 2017) Anesthesia Reaction: No Hx Neurological Disorder: No Hx Respiratory Disorders: No Hx Cardiac Disorders: Yes ([place]) Hx Psychiatric Problems: No Hx Miscellaneous Medical Probl: Yes (HTN, CAD with CABG, hernia repair ) Hx Alcohol Use: No Hx Substance Use: No Hx Tobacco Use: No Smoking Status: Never smoker FmHx Family History: No coronary disease Physical Exam Vitals Vital Signs Date Temp Pulse Resp B/P (MAP) Pulse Ox O2 O2 Flow FiO2 Time Delivery Rate 05/19/18 97.3 69 17 125/83 100 Room Air 20:26 (97) 05/19/18 97.4 79 18 121/79 97 14:18 (93) Physical Exam Const: Well-developed, well-nourished Head: Atraumatic, normocephalic Eyes: Normal Conjunctiva, PERRLA, EOMI, normal sclera, no nystagmus ENT: Normal External Ears, Nose and Mouth, moist mucus membranes. Neck: Full range of motion. No meningismus, no lymphadenopathy. Resp: Clear to auscultation bilaterally, no wheezing, rhonchi, rales Cardio: Regular rate and rhythm, no murmurs, S1 S2 present Abd: Soft, mild left-sided abdominal pain non distended. Normal bowel sounds, no guarding or rebound, no pulsitile abdominal masses or bruits Skin: No petechiae or rashes, no ecchymosis , no maculopapular rash Back: No midline or flank tenderness Ext: No cyanosis, or edema, FROM x 4, normal inspection, neurovascularly intact x 4 Neur: Awake and alert, STR 5/5 x 4, sensation intact x 4, no focal findings, cerebellum intact Psych: Normal Mood and Affect Result Diagram: 05/19/18193805/19/181938 Results 24 hrs Laboratory Tests Test 05/19/18 19:39 White Blood Count 10.6 10^3/ul Red Blood Count 5.14 10^6/ul Hemoglobin 15.3 g/dl Hematocrit 47.0 % Mean Corpuscular Volume 91.4 fl Mean Corpuscular Hemoglobin 29.8 pg Mean Corpuscular Hemoglobin Concent 32.6 g/dl Red Cell Distribution Width 13.4 % Platelet Count 250 10^3/UL Mean Platelet Volume 9.7 fl Immature Granulocytes % 0.400 % Neutrophils % 78.6 % Lymphocytes % 11.2 % Monocytes % 7.5 % Eosinophils % 2.2 % Basophils % 0.1 % Nucleated Red Blood Cells % 0.0 /100WBC Immature Granulocytes # 0.040 10^3/ul Neutrophils # 8.4 10^3/ul Lymphocytes # 1.2 10^3/ul Monocytes # 0.8 10^3/ul Eosinophils # 0.2 10^3/ul Basophils # 0.0 10^3/ul Nucleated Red Blood Cells # 0.0 10^3/ul Sodium Level 144 mmol/L Potassium Level 4.4 mmol/L Chloride Level 102 mmol/L Carbon Dioxide Level 29 mmol/L Anion Gap 13 Blood Urea Nitrogen 16 mg/dl Creatinine 1.17 mg/dl Est Glomerular Filtrat Rate mL/min > 60 mL/min Glucose Level 102 mg/dl Calcium Level 8.6 mg/dl Total Bilirubin 0.9 mg/dl Direct Bilirubin 0.00 mg/dl Indirect Bilirubin 0.9 mg/dl Aspartate Amino Transf (AST/SGOT) 28 IU/L Alanine Aminotransferase (ALT/SGPT) 28 IU/L Alkaline Phosphatase 78 IU/L Total Protein 7.8 g/dl Albumin 4.1 g/dl Globulin 3.70 g/dl Albumin/Globulin Ratio 1.10 Lipase 26 U/L Current Medications Medications Dose Sig/Ramesh Start Time Status Last (Trade) Ordered Route PRN Stop Time Admin Dose Reason Admin Sodium 1,000 ml @ Q1H STAT 05/19/18 DC 05/19/18 Chloride 1,000 mls/hr IV 19:05 19:43 05/19/18 20:04 IV Flush 10 ml STK-MED 05/19/18 DC 05/19/18 (NS 10 ml) ONCE .ROUTE 20:34 21:04 05/19/18 20:35 Sodium 100 ml @ ud STK-MED 05/19/18 DC 05/19/18 Chloride ONCE .ROUTE 20:34 21:04 05/19/18 20:35 Iodixanol 100 ml STK-MED 05/19/18 DC 05/19/18 (Visipaque ONCE .ROUTE 20:34 21:04 Locm) 05/19/18 20:35 Iodixanol 50 ml STK-MED 05/19/18 DC 05/19/18 (Visipaque ONCE .ROUTE 20:35 21:04 Locm) 05/19/18 20:36 Procedures/MDM PROCEDURE: CT abdomen and pelvis with contrast. CLINICAL INDICATION: Abdominal Pain TECHNIQUE: CT scan of the abdomen and pelvis without oral contrast was performed and is reconstructed at 2.5 mm contiguous axial intervals from the dome of the diaphragm to the inferior pubic rami.. The patient was scanned with intravenous contrast. Sagittal and coronal reformatted images were obtained from the axial source images. The calculated radiation dose measures 1383 mGy centimeters. The CTDI measures the 22 mGy. Individualized dose optimization technique was used for the performance of this exam. This included 1. Automated exposure control. 2. Adjustment of the mA and / or kV according to the patient's size. 3. Use of iterative reconstructed technique. COMPARISON: CT abdomen pelvis December 11, 2017 FINDINGS: The lung bases are clear of any infiltrate or nodule. No effusion is seen. The liver is of normal size, contour and attenuation with no mass or ductal dilatation. No gallstones are visualized. No adrenal or pancreatic abnormalities present. densely calcified granulomas seen in the spleen. Kidneys are of normal size and contour. No hydronephrosis or solid masses seen. There is a 1 cm cortical cyst in the posterior upper pole and lateral mid pole of the right kidney. 3 mm cyst is seen in the upper pole of the left kidney. There are bilateral nonobstructing lower pole renal calculi measuring 6 mm and the right kidney and 5 mm and the left kidney. Ureters are of normal course and caliber with no stone. No bladder mass or stone is present. There is a diverticulum on the right posterior urinary bladder. Prostate and seminal vesicles are normal. There is no aneurysm. No adenopathy is present. No bowel mass is seen. There is a long segment of moderately distended small bowel involving the jejunum and proximal ileum. Transition is not confidently visualized and no masses seen. This may represent evidence of either an early, partial or resolving small bowel obstruction or ileus. Clinical correlation is suggested. Small bowel follow-through could be performed for more definitive diagnosis if clinically indicated.. The appendix is normal. No phlegmon, ascites or pneumoperitoneum is visualized. There are 2 supraumbilical hernias containing fat. The osseous structures are intact. IMPRESSION: No evidence of urolithiasis, obstructive uropathy, diverticulitis or appendicitis. Long segment moderately distended small bowel without clearly defined transition or mass. Question partial versus early versus resolving small bowel obstruction. Ileus cannot be ruled out. Consider small-bowel follow-through if clinically indicated. Bilateral nonobstructing renal calculi. Bilateral renal cysts. No further workup required. Supraumbilical hernias containing fat. .Mark Kelley MD, MD Date Time Electronically viewed and signed by .Mark Kelley MD, MD on 05/19/2018 21:01 .A/ CC: VISHNU COLEMAN DO [id number] Patient be admitted and I have ordered a small bowel follow-through with G astrografin. Patient has a moderately dilated long segment of small bowel which could be a ileus versus early/partial bowel obstruction. He is not vomiting on not put NG tube in at this time Departure Diagnosis: Primary Impression: Small bowel obstruction Condition: Stable VISHNU COLEMAN DO May 19, 2018 20:12
[2018-05-19] MEDS ORDERED: IODIXANOL LOCM 100 ML BTL ONE (20:34)
[2018-05-19] MEDS ORDERED: SOD CHLORIDE 0.9% 100 ML ONE (20:34)
[2018-05-19] MEDS ORDERED: IODIXANOL LOCM 50 ML BTL ONE (20:35)
[2018-05-19] MEDS ORDERED: DIATR MEGLU/DIATRIZOATE SODIUM 120 ML BTL PO ONE (21:30)
[2018-05-19] MEDS ORDERED: SOD CHLORIDE 0.9% 1,000 ML IV SCH (21:46)
[2018-05-19] MEDS ORDERED: ONDANSETRON 4 MG INJ IV PRN ×2 (22:00→23:30)
--- NOTE | 2018-05-19 23:15 | NUR ---
RECEIVED PT. FROM ER WITH SBO; PT. IS ON NPO EXPT. MEDS; INDICATED NO PAIN; NO N/V; WANT TO SLEEP; PT. A AND O X 4; VS IS WNL; PT. HAS BILATERAL LEG BLANCHABLE REDNESS. PHOTO DOCUMENTATION IS DONE; WILL CONTINUE WITH A PLAN OF CARE.
--- NOTE | 2018-05-19 23:16 | HP ---
Date/Time of Note Date/Time of Note DATE: 05/19/18 TIME: 23:16 Assessment/Plan VTE Prophylaxis SCD applied (from Nsg): Yes Pharmacological prophylaxis: NA/contraindicated Pharm contraindication: low risk/ambulating Lines/Catheters IV Catheter Type (from Nrsg): Saline Lock Assessment/Plan Hospital Course This is a 61-year-old male being admitted to the [facility] floor for: #1 Suspect recurrent small bowel obstruction: CT scan concerning for possible small bowel obstruction versus ileus versus resolving bowel obstruction.. We will keep the patient n.p.o., IV fluid hydration with normal saline. Pain ma nagement small bowel follow-through in the a.m., general surgery has been consulted Dr. Ying. #2 Coronary artery disease: History of CABG, continue statin, aspirin, will hold Plavix at the current time in case patient needs to have procedure performed. #3 history of systolic heart failure: Continue current home medications #4 umbilical hernia: Patient following with outpatient surgery for eventual repair. #5 dyslipidemia: Continue statin #6 History of anemia: Hemoglobin of 15. Patient currently stable no active signs of bleeding. We will continue to monitor. #7 DVT and GI prophylaxis: SCDs, no GI prophylaxis indicated Further treatment strategy will be implemented as per the clinical course Result Diagram: 05/19/18193805/19/181938 Results 24hrs Laboratory Tests Test 05/19/18 19:39 White Blood Count 10.6 # Red Blood Count 5.14 Hemoglobin 15.3 Hematocrit 47.0 Mean Corpuscular Volume 91.4 Mean Corpuscular Hemoglobin 29.8 Mean Corpuscular Hemoglobin Concent 32.6 Red Cell Distribution Width 13.4 Platelet Count 250 Mean Platelet Volume 9.7 Immature Granulocytes % 0.400 Neutrophils % 78.6 H Lymphocytes % 11.2 L Monocytes % 7.5 Eosinophils % 2.2 Basophils % 0.1 Nucleated Red Blood Cells % 0.0 Immature Granulocytes # 0.040 H Neutrophils # 8.4 H Lymphocytes # 1.2 Monocytes # 0.8 Eosinophils # 0.2 Basophils # 0.0 Nucleated Red Blood Cells # 0.0 Sodium Level 144 Potassium Level 4.4 Chloride Level 102 Carbon Dioxide Level 29 Anion Gap 13 Blood Urea Nitrogen 16 Creatinine 1.17 Est Glomerular Filtrat Rate mL/min > 60 Glucose Level 102 Calcium Level 8.6 Total Bilirubin 0.9 Direct Bilirubin 0.00 Indirect Bilirubin 0.9 Aspartate Amino Transf (AST/SGOT) 28 Alanine Aminotransferase (ALT/SGPT) 28 Alkaline Phosphatase 78 Total Protein 7.8 Albumin 4.1 Globulin 3.70 H Albumin/Globulin Ratio 1.10 Lipase 26 HPI/ROS Admit Date/Time Admit Date/Time May 19, 2018 at 21:47 Hx of Present Illness Chief complaint: Abdominal pain, diarrhea This is a 63-year-old man who is complaining of diarrhea this morning x1 as well as nonbloody. He says he had some diffuse abdominal cramps with some reflux and he was concerned he has a bowel obstruction again he had the same symptoms when he had a bowel obstruction twice before., However, he states now he feels a lot better. Says he has some slight left lower quadrant tenderness/pain. No vomiting no fever no chest pain or difficulty breathing no melena Allergies:: Acetaminophen Medications: See JANEEN NEELY Const: As per HPI Eyes : No pain discharge or redness or change in visual acuity ENT: No pain, sore throat, congestion, congestion, dysphagia or discharge Respiratory: No shortness of breath, cough, sputum, wheezing, or pleuritic pain Cardiovascular: No chest pain, palpitation, PND, or edema GI : As per HPI Genitourinary: No dysuria, hematuria, flank pain , discharge or CVA tenderness Musculoskeletal: No joint pain, back pain, neck pain, restricted range of motion in neck or joints Skin: No rash, bruising or hives Neuro: No headache, dizziness, syncope, seizure, focal weakness Endocrine: No polyuria, polydipsia, temperature intolerance Psych: No hallucination, depression, anxiety or suicidal ideation PMH/Family/Social Past Medical History [place], vfib, cardiac arrest, status post coronary artery bypass graft complicated by harvest site abscess on the left lower extremity, status post incision and drainage, history of afib, PE in 2009, small bowel obstruction, basal cell carcinoma of the midback status post excision in 2014, dyslipidemia, and cardio myopathy with systolic dysfunction with EF of 45% Medications Current Medications Sodium Chloride 1,000 ml @ 80 mls/hr [id number] IV ; Start 05/19/18 at 21:46; Stop 05/20/18 at 10:15 Ondansetron HCl (Zofran Inj) 4 mg BRIDGE ORDER PRN IV nausea; Start 05/19/18 at 22:00; Stop 05/20/18 at 21:59 Coded Allergies: acetaminophen (Verified Allergy, Intermediate, RASH, 05/19/18) Past Surgical History CABG, incarcerated hernia repair, hiatal hernia repair, and as stated above in the HPI Past Surgical Hx: coronary bypass surgery, other Family History Significant Family History: no pertinent family hx Social History Alcohol Use: none Smoking Status: Never smoker Drug Use: none Exam/Review of Systems Vital Signs Vitals Vital Signs Date Temp Pulse Resp B/P (MAP) Pulse Ox O2 O2 Flow FiO2 Time Delivery Rate 05/19/18 97.3 79 17 132/75 99 Room Air 22:37 (94) Exam Exam General: Patient is currently lying in bed in no acute distress HEENT: Atraumatic, normocephalic. The pupils are equal, round and reactive. Extraocular motor are intact Neck: Supple with full range of motion. No rigidity or meningismus Chest: Nontender Lungs: Clear to auscultation bilaterally no crackles rales or wheezing Heart: Normal S1-S2, Regular rhythm and rate. No murmur, S3, or S4 Abdomen: Soft, mildly distended, hypoactive bowel sounds, umbilical hernia reduc ible, no CVA tenderness palpation bilaterally Extremities: Normal to inspection, no edema no cyanosis Skin: Signs of chronic venous stasis of the bilateral lower extremities Neurologic: Normal mental status, speech normal, cranial nerves II through XII are intact, motor and sensory are intact, Additional Comments PROCEDURE: CT abdomen and pelvis with contrast. CLINICAL INDICATION: Abdominal Pain TECHNIQUE: CT scan of the abdomen and pelvis without oral contrast was performed and is reconstructed at 2.5 mm contiguous axial intervals from the dome of the diaphragm to the inferior pubic rami.. The patient was scanned with intravenous contrast. Sagittal and coronal reformatted images were obtained from the axial source images. The calculated radiation dose measures 1383 mGy centimeters. The CTDI measures the 22 mGy. Individualized dose optimization technique was used for the performance of this exam. This included 1. Automated exposure control. 2. Adjustment of the mA and / or kV according to the patient's size. 3. Use of iterative reconstructed technique. COMPARISON: CT abdomen pelvis December 11, 2017 FINDINGS: The lung bases are clear of any infiltrate or nodule. No effusion is seen. The liver is of normal size, contour and attenuation with no mass or ductal dilatation. No gallstones are visualized. No adrenal or pancreatic ab normalities present. densely calcified granulomas seen in the spleen. Kidneys are of normal size and contour. No hydronephrosis or solid masses seen. There is a 1 cm cortical cyst in the posterior upper pole and lateral mid pole of the right kidney. 3 mm cyst is seen in the upper pole of the left kidney. There are bilateral nonobstructing lower pole renal calculi measuring 6 mm and the right kidney and 5 mm and the left kidney. Ureters are of normal course and caliber with no stone. No bladder mass or stone is present. There is a diverticulum on the right posterior urinary bladder. Prostate and seminal vesicles are normal. There is no aneurysm. No adenopathy is present. No bowel mass is seen. There is a long segment of moderately distended small bowel involving the jejunum and proximal ileum. Transition is not confidently visualized and no masses seen. This may represent evidence of either an early, partial or resolving small bowel obstruction or ileus. Clinical correlation is suggested. Small bowel follow-through could be performed for more definitive diagnosis if clinically indicated.. The appendix is normal. No phlegmon, ascites or pneumoperitoneum is visualized. There are 2 supraumbilical hernias containing fat. The osseous structures are intact. IMPRESSION: No evidence of urolithiasis, obstructive uropathy, diverticulitis or appendicitis. Long segment moderately distended small bowel without clearly defined transition or mass. Question partial versus early versus resolving small bowel obstruction. Ileus cannot be ruled out. Consider small-bowel follow-through if clinically indicated. Bilateral nonobstructing renal calculi. Bilateral renal cysts. No further workup required. Supraumbilical hernias containing fat. .Mark Kelley MD, Date Time Electronically viewed and signed by .Mark Kelley MD, MD on 05/19/2018 21:01 .A/ CC: VISHNU COLEMAN DO [id number] VANDANA COLON May 19, 2018 23:16
[2018-05-19 23:25] VITALS: Ht 185.4 cm; Wt 118.0 kg
[2018-05-19 23:26] VITALS: BP 138/71; PULSE 65; RESP 18
[2018-05-19] MEDS ORDERED: morphine 4 MG/ML VIAL IV PRN (23:30)
[2018-05-19] MEDS ORDERED: NACL 0.9% 3 ML SYG IV SCH (23:30)
[2018-05-19] MEDS ORDERED: DOCUSATE SODIUM 100 MG CAP PO PRN (23:30)
[2018-05-19] MEDS ORDERED: ACETAMINOPHEN 325 MG TAB PO PRN (23:30)
[2018-05-19] MEDS ORDERED: METOCLOPRAMIDE 10 MG INJ IV PRN (23:30)
[2018-05-19] MEDS ORDERED: BISACODYL (EC) 5 MG TAB PO PRN (23:30)
[2018-05-19] MEDS: SOD CHLORIDE 0.9% 1,000 ML IV SCH (23:50)
--- NOTE | 2018-05-20 04:33 | NUR ---
END OF SHIFT NOTE: PATIENT IS A AND O X 4; NOT IN DISTRESS. VS IS WNL; ALL MEDICATIONS HAVE BEEN GIVEN ORDERED AND PRN; ALL NEEDS ATTENDED; CALL LIGHT WITHIN REACH ; WILL ENDORSE TO THE DAY SHIFT RN
[2018-05-20] MEDS ORDERED: IBUPROFEN 400 MG TAB PO PRN (05:30)
[2018-05-20 08:06] VITALS: BP 138/71; PULSE 69; RESP 18
[2018-05-20] MEDS ORDERED: DIATR MEGLU/DIATRIZOATE SODIUM 120 ML BTL ONE (08:33)
[2018-05-20] MEDS ORDERED: ASPIRIN (EC) 81 MG TAB PO SCH (09:00)
[2018-05-20] MEDS: SOD CHLORIDE 0.9% 1,000 ML IV SCH (11:00)
--- NOTE | 2018-05-20 13:36 | CONS ---
Assessment/Plan Assessment/Plan Assessment/Plan (Daily) No evidence of small bowel obstruction. Can be started on clear liquids and advanced as tolerated. The patient can be discharged later today. He will need to follow-up with his surgeon regarding a pigmented lesion on his right upper back as well as follow-up to his ventral incisional hernia. Consultation Date/Type/Reason Admit Date/Time May 19, 2018 at 21:47 Date of Consultation: May 20, 2018 Type of Consult General surgery Reason for Consultation Small bowel obstruction (recurrent) Date/Time of Note DATE: 05/20/18 TIME: 13:32 Hx of Present Illness The patient is a 63-year-old gentleman who has a known ventral incisional hernia. He is under the care of a surgeon who originally is planning on doing an elective hernia repair. The patient came in yesterday with abdominal distention and imaging suggesting small bowel obstruction. Today a small bowel follow-through was completed and is normal. Furthermore the patient is asymptomatic and has had a large bowel movement. Note is the fact that he had a similar episode this last November which resolved with nonoperative management. Constitutional: no complaints Eyes: no complaints ENT: no complaints Respiratory: no complaints Cardiovascular: other (History of urinary angioplasty) Gastrointestinal: other (As in the HPI) Genitourinary: no complaints Musculoskeletal: no complaints Skin: other (Patient has had a history of a excision of a cutaneous malignancy of the back several years ago) Neurologic: no complaints Endocrine: no complaints Past Medical History Medical History: angina, coronary artery disease Home Meds Reported Medications Atorvastatin* (Atorvastatin*) 80 Mg Tablet, 80 MG PO QHS, #30 TAB 05/19/18 Clopidogrel Bisulfate* (Clopidogrel Bisulfate*) 75 Mg Tablet, 75 MG PO DAILY, #30 TAB 05/19/18 Aspirin* (Aspirin* EC) 81 Mg Tablet.dr, 81 MG PO DAILY, TAB 05/19/18 Discontinued Reported Medications Sildenafil Citrate* (Sildenafil Citrate*) 20 Mg Tablet, 1 TAB PO DAILY PRN for NOTE 12/13/17 Hydrocodone/Acetaminophen (Hydrocodone-Acetamin 10-325 mg) 1 Each Tablet, 1 TAB PO BID PRN for PAIN 12/13/17 Carisoprodol* (Carisoprodol*) 350 Mg Tablet, 350 MG PO DAILY 12/13/17 Discontinued Scripts Metoprolol Tartrate* (Lopressor*) 25 Mg Tab, 25 MG PO BID, #60 TAB Prov:FLORENCIO CLAUDIO MD 12/14/17 Atorvastatin* (Atorvastatin*) 80 Mg Tablet, 80 MG PO HS, #30 TAB 4 Refills Prov:FLORENCIO CLAUDIO MD 12/14/17 Aspirin (Aspirin) 81 Mg Chew, 81 MG PO DAILY, #30 TAB 4 Refills Prov:FLORENCIO CLAUDIO MD 12/14/17 Terbinafine* (Lamisil*) 250 Mg Tablet, 250 MG PO DAILY for 40 Days, TAB Prov:JHONATAN BENDER 10/12/16 Lisinopril* (Lisinopril*) 10 Mg Tablet, 10 MG PO DAILY, #30 TAB 4 Refills Prov:MAREK BECERRA S. 06/24/16 Clopidogrel Bisulfate (Clopidogrel) 75 Mg Tablet, 75 MG NGT DAILY, #30 TAB 8 Refills Prov:MAREK BECERRA S. 06/24/16 Medications Current Medications Sodium Chloride 1,000 ml @ 100 mls/hr Q10H IV Last administered on 05/20/18at 11:00; Admin Dose 100 MLS/HR; Start 05/19/18 at 23:14 IV Flush (NS 3 ml) 3 ml PER PROTOCOL IV ; Start 05/19/18 at 23:30 Ondansetron HCl (Zofran Inj) 4 mg Q6H PRN IV NAUSEA/VOMITING; Start 05/19/18 at 23:30 Metoclopramide HCl (Reglan) 10 mg Q6H PRN IV NAUSEA/VOMITING; Start 05/19/18 at 23:30 Morphine Sulfate (morphine) 2 mg Q4H PRN IV .SEVERE PAIN 7-10; Start 05/19/18 at 23:30 Docusate Sodium (Colace) 100 mg Q12H PRN PO .CONSTIPATION; Start 05/19/18 at 23:30 Bisacodyl (Dulcolax) 5 mg DAILY PRN PO .CONSTIPATION; Start 05/19/18 at 23:30 Ibuprofen (Motrin) 400 mg Q6H PRN PO MILD PAIN(1-3) OR TEMP>38C; Start 05/20/18 at 05:30 Aspirin (Halfprin) 81 mg DAILY PO Last administered on 05/20/18at 08:42; Admin Dose 81 MG; Start 05/20/18 at 09:00 Atorvastatin Calcium (Lipitor) 80 mg QHS PO ; Start 05/20/18 at 21:00 Allergies: Coded Allergies: acetaminophen (Verified Allergy, Intermediate, RASH, 05/19/18) Past Surgical History Past Surgical Hx: coronary bypass surgery, other Family History Significant Family History: no pertinent family hx Social History Alcohol Use: none Smoking Status: Never smoker Drug Use: none Exam/Review of Systems Exam Vitals Vital Signs Date Temp Pulse Resp B/P (MAP) Pulse Ox O2 O2 Flow FiO2 Time Delivery Rate 05/20/18 98.7 69 18 138/71 97 Room Air 08:06 (93) Intake and Output 05/19/18 05/19/18 05/20/18 1515:00 23:00 07:00 IntakeIntake Total 500 ml BalanceBalance 500 ml Constitutional: alert, oriented Psych: no complaints Head: normocephalic Eyes: nl conjunctiva ENMT: nl external ears & nose Neck: supple Respiratory: clear to auscultation Cardiovascular: regular rate and rhythm Gastrointestinal: soft (Obese. 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 intact Results Result Diagram: 05/20/18 0422 05/20/18 0422 Results 24hrs Laboratory Tests Test 05/19/18 19:39 05/20/18 04:22 05/20/18 04:23 05/20/18 08:15 White Blood Count 10.6 # 8.2 # Red Blood Count 5.14 4.76 Hemoglobin 15.3 14.0 Hematocrit 47.0 43.2 Mean Corpuscular 91.4 90.8 Volume Mean Corpuscular 29.8 29.4 Hemoglobin Mean Corpuscular 32.6 32.4 Hemoglobin Concent Red Cell 13.4 13.3 Distribution Width Platelet Count 250 222 Mean Platelet Volume 9.7 10.1 Immature 0.400 0.400 Granulocytes % Neutrophils % 78.6 H 63.9 Lymphocytes % 11.2 L 22.2 Monocytes % 7.5 9.3 Eosinophils % 2.2 4.0 Basophils % 0.1 0.2 Nucleated Red Blood 0.0 0.0 Cells % Immature 0.040 H 0.030 Granulocytes # Neutrophils # 8.4 H 5.3 Lymphocytes # 1.2 1.8 Monocytes # 0.8 0.8 Eosinophils # 0.2 0.3 Basophils # 0.0 0.0 Nucleated Red Blood 0.0 0.0 Cells # Sodium Level 144 140 Potassium Level 4.4 4.0 Chloride Level 102 104 Carbon Dioxide Level 29 24 Anion Gap 13 12 Blood Urea Nitrogen 16 12 Creatinine 1.17 0.85 Est Glomerular > 60 > 60 Filtrat Rate mL/min Glucose Level 102 97 Calcium Level 8.6 8.1 L Total Bilirubin 0.9 0.8 Direct Bilirubin 0.00 0.00 Indirect Bilirubin 0.9 0.8 Aspartate Amino 28 24 Transf (AST/SGOT) Alanine 28 26 Aminotransferase (AL T/SGPT) Alkaline Phosphatase 78 70 Total Protein 7.8 6.2 # Albumin 4.1 3.1 #L Globulin 3.70 H 3.10 Albumin/Globulin 1.10 1.00 Ratio Lipase 26 Magnesium Level 1.6 L Triglycerides Level 94 Cholesterol Level 118 LDL Cholesterol, 69 Calculated HDL Cholesterol 30 Cholesterol/HDL 3.9 Ratio Thyroid Stimulating 2.180 Hormone (TSH) Hemoglobin A1c 5.3 Prothrombin Time 13.0 Prothrombin Time 1.0 Ratio INR International 0.97 Normalized Ratio Activated 30.8 Partial Thromboplast Time ROSALINE ARCHER MD May 20, 2018 13:36
--- NOTE | 2018-05-20 13:39 | PDOCDIS ---
Discharge Instructions CONDITION [id number] Patient Condition: [id number] Stable HOME CARE INSTRUCTIONS: [id number] Diet Instructions: [id number] Regular FOLLOW UP/APPOINTMENTS Follow-up Plan Follow-up with primary care physician in 1 week DEBORA PORTER NP May 20, 2018 13:39
--- NOTE | 2018-05-20 13:42 | DS ---
Date/Time of Note Date/Time of Note DATE: 05/20/18 TIME: 13:41 Discharge Summary Admission/Discharge Info Admit Date/Time May 19, 2018 at 23:10 Discharge Date/Time Discharge Diagnosis Abdominal distention, possible early SBO. Resolved Ventral incisional hernia Coronary artery disease Congestive heart failure Dyslipidemia Obesity Patient Condition: Stable Consults Dr. Ying, surgery Procedures 05/19/2018. CT abdomen and pelvis with contrast. IMPRESSION: No evidence of urolithiasis, obstructive uropathy, diverticulitis or appendicitis. Long segment moderately distended small bowel without clearly defined transition or mass. Question partial versus early versus resolving small bowel obstruction. Ileus cannot be ruled out. Consider small-bowel follow-through if clinically indicated. Bilateral nonobstructing renal calculi. Bilateral renal cysts. No further workup required. Supraumbilical hernias containing fat. Hospital Course 63-year-old male with a history of ventral hernia, under the care of surgeon with plan for elective hernia repair soon, presented to the emergency room with abdominal distention. CT showed small bowel obstruction. Surgery consultation was requested and patient was admitted. Small bowel series showed no evidence of small bowel obstruction. As per surgeon, patient was started on a diet and was advanced to regular. Patient was cleared for discharge from surgery standpoint with outpatient surgery follow-up for repair of ventral incisional hernia. Approximately 60 minutes was spent on coordinating the discharge on this patient. Patient was seen in collaboration with Dr. Wasserman. Home Meds Reported Medications Atorvastatin* (Atorvastatin*) 80 Mg Tablet, 80 MG PO QHS, #30 TAB 05/19/18 Clopidogrel Bisulfate* (Clopidogrel Bisulfate*) 75 Mg Tablet, 75 MG PO DAILY, #30 TAB 05/19/18 Aspirin* (Aspirin* EC) 81 Mg Tablet., 81 MG PO DAILY, TAB 05/19/18 Discontinued Reported Medications Sildenafil Citrate* (Sildenafil Citrate*) 20 Mg Tablet, 1 TAB PO DAILY PRN for NOTE 12/13/17 Hydrocodone/Acetaminophen (Hydrocodone-Acetamin 10-325 mg) 1 Each Tablet, 1 TAB PO BID PRN for PAIN 12/13/17 Carisoprodol* (Carisoprodol*) 350 Mg Tablet, 350 MG PO DAILY 12/13/17 Discontinued Scripts Metoprolol Tartrate* (Lopressor*) 25 Mg Tab, 25 MG PO BID, #60 TAB Prov:FLORENCIO CLAUDIO MD 12/14/17 Atorvastatin* (Atorvastatin*) 80 Mg Tablet, 80 MG PO HS, #30 TAB 4 Refills Prov:FLORENCIO CLAUDIO MD 12/14/17 Aspirin (Aspirin) 81 Mg Chew, 81 MG PO DAILY, #30 TAB 4 Refills Prov:FLORENCIO CLAUDIO MD 12/14/17 Terbinafine* (Lamisil*) 250 Mg Tablet, 250 MG PO DAILY for 40 Days, TAB Prov:JHONATAN BENDER 10/12/16 Lisinopril* (Lisinopril*) 10 Mg Tablet, 10 MG PO DAILY, #30 TAB 4 Refills Prov:MAREK BECERRA S. 06/24/16 Clopidogrel Bisulfate (Clopidogrel) 75 Mg Tablet, 75 MG NGT DAILY, #30 TAB 8 Refills Prov:MAREK BECERRA S. 06/24/16 Follow-up Plan Follow-up with primary care physician in 1 week Primary Care Provider [facility] Pending Labs Laboratory Tests Test 05/19/18 19:39 05/20/18 04:22 05/20/18 04:23 05/20/18 08:15 White Blood 10.6 8.2 Count 10^3/ul (4.8-10 10^3/ul (4.8-1 .8) 0.8) Red Blood 5.14 4.76 Count 10^6/ul (4.70-6 10^6/ul (4.70- .10) 6.10) Hemoglobin 15.3 14.0 g/dl (14.0-18.0 g/dl (14.0-18. ) 0) Hematocrit 47.0 43.2 % (42.0-52.0) % (42.0-52.0) Mean 91.4 90.8 Corpuscular fl (82.0-101.0) fl (82.0-101.0 Volume ) Mean 29.8 29.4 Corpuscular pg (29.0-33.0) pg (29.0-33.0) Hemoglobin Mean 32.6 32.4 Corpuscular g/dl (32.0-37.0 g/dl (32.0-37. Hemoglobin Conc ) 0) ent Red Cell 13.4 13.3 Distribution % (11.5-14.5) % (11.5-14.5) Width Platelet Count 250 222 10^3/UL (140-41 10^3/UL (140-4 5) 15) Mean Platelet 9.7 10.1 Volume fl (7.4-10.4) fl (7.4-10.4) Immature 0.400 0.400 Granulocytes % % (0.001-0.429) % (0.001-0.429 ) Neutrophils % 78.6 63.9 % (39.0-77.0) % (39.0-77.0) Lymphocytes % 11.2 22.2 % (15.0-51.0) % (15.0-51.0) Monocytes % 7.5 9.3 % (0.0-11.0) % (0.0-11.0) Eosinophils % 2.2 % (0.0-7.0) 4.0 % (0.0-7.0) Basophils % 0.1 % (0.0-2.0) 0.2 % (0.0-2.0) Nucleated Red 0.0 0.0 Blood Cells % /100WBC (0.0-0. /100WBC (0.0-0 0) .0) Immature 0.040 0.030 Granulocytes # 10^3/ul (0.0-0. 10^3/ul (0.0-0 031) .031) Neutrophils # 8.4 5.3 10^3/ul (1.6-7. 10^3/ul (1.6-7 5) .5) Lymphocytes # 1.2 1.8 10^3/ul (0.8-2. 10^3/ul (0.8-2 9) .9) Monocytes # 0.8 0.8 10^3/ul (0.3-0. 10^3/ul (0.3-0 9) .9) Eosinophils # 0.2 0.3 10^3/ul (0.0-0. 10^3/ul (0.0-0 5) .5) Basophils # 0.0 0.0 10^3/ul (0.0-0. 10^3/ul (0.0-0 1) .1) Nucleated Red 0.0 0.0 Blood Cells # 10^3/ul (0.0-0. 10^3/ul (0.0-0 0) .0) Sodium Level 144 140 mmol/L (135-144 mmol/L (135-14 ) 4) Potassium 4.4 4.0 Level mmol/L (3.5-5.1 mmol/L (3.5-5. ) 1) Chloride Level 102 104 mmol/L (97-110) mmol/L (97-110 ) Carbon Dioxide 29 24 Level mmol/L (21-31) mmol/L (21-31) Anion Gap 13 (5-13) 12 (5-13) Blood Urea 16 mg/dl (7-20) 12 Nitrogen mg/dl (7-20) Creatinine 1.17 0.85 mg/dl (0.61-1.2 mg/dl (0.61-1. 4) 24) Est Glomerular > 60 > 60 Filtrat mL/min (>60) mL/min (>60) Rate mL/min Glucose Level 102 97 mg/dl (70-220) mg/dl (70-220) Calcium Level 8.6 8.1 mg/dl (8.4-10.2 mg/dl (8.4-10. ) 2) Total 0.9 0.8 Bilirubin mg/dl (0.2-1.3) mg/dl (0.2-1.3 ) Direct 0.00 0.00 Bilirubin mg/dl (0.00-0.2 mg/dl (0.00-0. 0) 20) Indirect 0.9 0.8 Bilirubin mg/dl (0-1.1) mg/dl (0-1.1) Aspartate Amino 28 IU/L (15-46) 24 Transf (AST/SGO IU/L (15-46) T) Alanine 28 IU/L (13-69) 26 Aminotransferas IU/L (13-69) e (ALT/SGPT) Alkaline 78 70 Phosphatase IU/L (42-121) IU/L (42-121) Total Protein 7.8 6.2 g/dl (6.1-8.1) g/dl (6.1-8.1) Albumin 4.1 3.1 g/dl (3.3-4.9) g/dl (3.3-4.9) Globulin 3.70 3.10 g/dl (1.3-3.2) g/dl (1.3-3.2) Albumin/Globuli 1.10 1.00 n Ratio Lipase 26 U/L (23-300) Magnesium 1.6 Level mg/dl (1.7-2.5 ) Triglycerides 94 Level mg/dl (0-149) Cholesterol 118 Level mg/dl (100-200 ) LDL 69 mg/dl Cholesterol, Calculated HDL 30 Cholesterol mg/dl (30-78) Cholesterol/HDL 3.9 RATIO Ratio Thyroid 2.180 Stimulating MIU/L (0.465-4 Hormone (TSH) .680) Hemoglobin A1c 5.3 % (0-5.9) Prothrombin 13.0 Time Sec (11.9-14.9 ) Prothrombin 1.0 Time Ratio INR 0.97 International Normalized Rati o Activated 30.8 Partial Thrombo Sec (23.0-35.0 plast Time ) DEBORA PORTER NP May 20, 2018 13:42
--- NOTE | 2018-05-20 15:27 | NUR ---
Dscharge: Pt discharged in wheelchair with volunteer to family member in car. Pt discharged with all personal belongings. Pt received discharge instructions, patient health summary, instructions for follow-up and [facility]. Pt was provided w/ written educational material regarding venous insufficiency, diuretics, high blood pressure leading to stroke, and SBO. Pt verbalized understanding. Pt was instructed to follow-up w/ oncologist for concerning skin lesions and Dr. Castillo to review current medication regimen. IV removed, no issues. Pt stable at discharge, A&Ox4.
[2018-05-20] MEDS ORDERED: ATORVASTATIN 80 MG TAB PO SCH (21:00)
== END 2018-05-20 15:20 | disposition home or self-care (01) | DRG 390 ==
LOC: E/R 14:15 → MS1 21:47 → OBSVTOIN 23:10
PROVIDERS: ADMIT Family Medicine; ATTEND Family Medicine
DX: K56.609 Unspecified intestinal obstruction, unspecified as to partial versus complete obstruction (principal); K43.2 Incisional hernia without obstruction or gangrene; Z95.1 Presence of aortocoronary bypass graft; I10 Essential (primary) hypertension; K56.7 Ileus, unspecified
CPT/HCPCS: 36415; 74177; 74250; 80053; 80061; 83036; 83690; 83735; 84443; 85025; 85610; 85730; 96360; 96361; G0378; J7030; Q9967

== ENCOUNTER 2018-11-04 18:15 | Emergency (ER) | payer SELFPAY ==
[~2018-11-04] VITALS: Ht 188 cm; Wt 120.3 kg
[~2018-11-04 18:15] MED LIST changes: +ASPI-817 PO; -ASPI-831 PO; -CARI350T29 PO; +CLOP75TA19 PO; -CLOP75TA28 NGT; -HYDR-3609 PO; -LISI10TA2 PO; -METO-448 PO; -SILD20TA PO; -TERB250T46 PO
[2018-11-04 18:28] VITALS: BP 130/60; PULSE 85; RESP 18; Ht 188 cm; Wt 120.3 kg
[2018-11-05] MEDS ORDERED: UDLOM GTB (08:30)
[2018-11-05] MEDS ORDERED: ONDA4TAB14 PO (08:30)
== END 2018-11-04 23:07 | disposition left against medical advice (07) ==
LOC: E/R 18:15
DX: Z53.21 Procedure and treatment not carried out due to patient leaving prior to being seen by health care provider (principal)

== ENCOUNTER 2018-11-05 03:02 | Emergency (ER) | payer OTHER ==
[~2018-11-05] VITALS: Ht 188 cm; Wt 120.3 kg
[2018-11-05 03:08] VITALS: Ht 188 cm; Wt 120.3 kg
[2018-11-05] MEDS ORDERED: morphine 4 MG/ML VIAL IV STA (06:46)
[2018-11-05] MEDS ORDERED: ONDANSETRON 4 MG INJ IV STA ×2 (06:46→09:12)
[2018-11-05] MEDS ORDERED: SOD CHLORIDE 0.9% 1,000 ML IV STA (06:46)
[2018-11-05] MEDS ORDERED: LIDOCAINE/MYLANTA 40 ML BTL PO STA (06:53)
[2018-11-05] MEDS ORDERED: FAMOTIDINE 20 MG INJ IV STA (06:53)
[2018-11-05] MEDS ORDERED: BELLADONNA/PHENOBARBITAL TAB PO STA (06:53)
--- NOTE | 2018-11-05 07:17 | ERD ---
ER Documentation Chief Complaint Chief Complaint diarrhea since yesterday, vomiting 1x, also c/o abd pain HPI This is a 63-year-old male that presents to the emergency department complaining of vomiting and diarrhea. The patient indicates that 24 hours ago he developed loose watery stools. He states he had roughly 10 episodes of loose watery stools in the past 24 hours. There is no blood present within the stool. Several hours prior to arrival the patient indicated he had one episode of nonbloody nonbilious emesis. Contrary to the triage note the patient states he has not been experiencing any abdominal pain but rather some retrosternal burning sensation. The patient had a past medical history of coronary artery bypass and also a known history of a ventral incisional hernia. The patient denies any recent antibiotics. No recent hospitalizations. No fevers or shaking no chills. No shortness of breath at rest or exertion. He states he did not have any changes in his medications. ROS All systems reviewed and are negative except as per history of present illness. Medications Home Meds Reported Medications Atorvastatin* (Atorvastatin*) 80 Mg Tablet, 80 MG PO QHS, #30 TAB 05/19/18 Clopidogrel Bisulfate* (Clopidogrel Bisulfate*) 75 Mg Tablet, 75 MG PO DAILY, #30 TAB 05/19/18 Aspirin* (Aspirin* EC) 81 Mg Tablet.dr, 81 MG PO DAILY, TAB 05/19/18 Allergies Allergies: Coded Allergies: acetaminophen (Verified Allergy, Intermediate, RASH, 05/19/18) PMhx/Soc History of Surgery: Yes (CABG,2016; HERNIA REPAIR,2009;) Anesthesia Reaction: No Hx Neurological Disorder: No Hx Respiratory Disorders: No Hx Cardiac Disorders: Yes (PR,2017) Hx Psychiatric Problems: No Hx Miscellaneous Medical Probl: Yes (NASAL DISCHARGE) Hx Alcohol Use: No Hx Substance Use: No Hx Tobacco Use: No Physical Exam Vitals Vital Signs Date Temp Pulse Resp B/P (MAP) Pulse Ox O2 O2 Flow FiO2 Time Delivery Rate 11/05/18 98.0 76 16 145/79 97 Room Air 07:22 (101) 11/05/18 97.9 73 18 125/68 97 03:08 (87) Physical Exam Constitutional:Well-developed. Well-nourished. HEENT:Normocephalic. Atraumatic.Pupils were equal round reactive to light. Dry mucous membranes.No tonsillar exudates. Neck: No nuchal rigidity. No lymphadenopathy. No posterior cervical spine tenderness or step-offs. Respiratory: Not using accessory muscles of respiration.Lungs were clear to auscultation bilaterally. No rhonchi. No rales. No wheezing. Cardiovascular: Regular rate regular rhythm.No murmurs. No rubs were appreciated.S1, S2 normal. Distal pulses are palpable 2+ bilaterally. GI: Abdomen was soft and obese. Nontender. Reducible ventral incisional hernia measuring roughly 5 cm. No pulsatile abdominal masses or bruits. No rebound. No guarding. Bowel sounds were present and normal. Muscle skeletal: Full range of motion of both the upper and lower extremities bilaterally.Normal muscle tone.No assymetrical calf tenderness or swelling. Skin: No petechia, no purpura. No lesions on the palms or the soles of the feet. No maculopapular rash. NEURO: Patient was alert, awake, orientated x3.No facial droop. Gait observed and normal with no ataxia.Speech had regular rate and rhythm. No focal neurological deficits. Result Diagram: 11/05/18 0716 11/05/18 0716 Results 24 hrs Laboratory Tests Test 11/05/18 07:16 White Blood Count 13.0 10^3/ul Red Blood Count 5.53 10^6/ul Hemoglobin 16.2 g/dl Hematocrit 50.0 % Mean Corpuscular Volume 90.4 fl Mean Corpuscular Hemoglobin 29.3 pg Mean Corpuscular Hemoglobin Concent 32.4 g/dl Red Cell Distribution Width 13.9 % Platelet Count 302 10^3/UL Mean Platelet Volume 10.3 fl Immature Granulocytes % 0.500 % Neutrophils % 81.3 % Lymphocytes % 8.5 % Monocytes % 7.3 % Eosinophils % 2.2 % Basophils % 0.2 % Nucleated Red Blood Cells % 0.0 /100WBC Immature Granulocytes # 0.060 10^3/ul Neutrophils # 10.6 10^3/ul Lymphocytes # 1.1 10^3/ul Monocytes # 1.0 10^3/ul Eosinophils # 0.3 10^3/ul Basophils # 0.0 10^3/ul Nucleated Red Blood Cells # 0.0 10^3/ul Prothrombin Time 13.0 Sec Prothrombin Time Ratio 1.0 INR International Normalized Ratio 0.97 Activated Partial Thromboplast Time 25.6 Sec Sodium Level 144 mmol/L Potassium Level 4.1 mmol/L Chloride Level 107 mmol/L Carbon Dioxide Level 24 mmol/L Anion Gap 13 Blood Urea Nitrogen 14 mg/dl Creatinine 1.20 mg/dl Est Glomerular Filtrat Rate mL/min > 60 mL/min Glucose Level 138 mg/dl Calcium Level 9.2 mg/dl Total Bilirubin 1.5 mg/dl Direct Bilirubin 0.00 mg/dl Indirect Bilirubin 1.5 mg/dl Aspartate Amino Transf (AST/SGOT) 28 IU/L Alanine Aminotransferase (ALT/SGPT) 23 IU/L Alkaline Phosphatase 101 IU/L Troponin I < 0.012 ng/ml Total Protein 8.6 g/dl Albumin 4.4 g/dl Globulin 4.20 g/dl Albumin/Globulin Ratio 1.04 Amylase Level 78 U/L Lipase 43 U/L Current Medications Medications Dose Sig/Ramesh Start Time Status Last (Trade) Ordered Route PRN Stop Time Admin Dose Reason Admin Sodium 1,000 ml @ Q1H STAT 11/05/18 DC 11/05/18 Chloride 1,000 mls/hr IV 06:46 06:59 11/05/18 07:45 Morphine 4 mg ONCE STAT 11/05/18 Cancel Sulfate IV 06:46 (morphine) 11/05/18 06:47 Ondansetron 4 mg ONCE STAT 11/05/18 DC 11/05/18 HCl (Zofran IV 06:46 06:59 Inj) 11/05/18 06:47 Famotidine 20 mg ONCE STAT 11/05/18 DC 11/05/18 (Pepcid Iv) IV 06:53 06:59 11/05/18 06:55 40 ml ONCE STAT 11/05/18 DC 11/05/18 Miscellaneous PO 06:53 07:06 Medication 11/05/18 06:55 (Gi Cocktail (2)) Belladonna/ 2 tab ONCE STAT 11/05/18 DC 11/05/18 Phenobarbital PO 06:53 06:59 () 11/05/18 06:55 1 tab ONCE ONCE 11/05/18 UNV Diphenoxylate PO 08:30 HCl/ 11/05/18 08:31 Atropine (Lomotil) Procedures/MDM This is a 63-year-old male that presented to the emergency department with vomiting and diarrhea. The patient was placed in a security monitor continuous pulse oximetry and IV access was established by nursing staff. The patient is also complaining of retrosternal burning pain I did feel is necessary to obtain a 12-lead tracing to rule out for myocardial infarction. 12 Lead EKG tracing ordered and reviewed by myself showed: Normal sinus rhythm of 68 bpm and no arrhythmia. IN interval normal. QRS duration normal. No ST segment elevation No ST segment depression. Q waves present in inferior lead to 3 and aVF The patient has mild leukocytosis which I do feel is more likely secondary to a viral etiology that could be causing the patient's vomiting and diarrhea. The patient received Bentyl Lomotil and was refusing analgesic medication as he had no abdominal pain contrary to the triage note. He was now able to tolerate oral intake after IV fluid resuscitation. He felt comfortable being discharged home. He will be discharged home with antiemetics and follow-up with his primary care physician. The patient was discharged home in fair condition. They were instructed to return to the emergency department at any time if there was any worsening of their condition. The patient stated they would follow up with their PCP in the next 24-48 hours to initiate a suitable medication regimen under the care of their PCP as well as to allow their PCP to monitor any drug reactions. The patient was discharged home with prescriptions after they gave informed consent to the new medication. They were also fully informed by myself on the adverse effects and adverse drug interactions in order to provide adequate safeguards to prevent possible adverse reactions to medications. Departure Diagnosis: Primary Impression: Diarrhea with dehydration Additional Impression: Vomiting Vomiting type: unspecified Vomiting Intractability: non-intractable Nausea presence: with nausea Qualified Codes: R11.2 - Nausea with vomiting, unspecified Condition: Fair SHANNON WOODS MD Nov 05, 2018 07:15
[2018-11-05] MEDS ORDERED: DIPHENOXYLATE/ATROPINE TAB PO ONE (08:30)
[2018-11-05] MEDS ORDERED: UDLOM GTB (08:30)
[2018-11-05] MEDS ORDERED: ONDA4TAB14 PO (08:30)
[2018-11-05] MEDS ORDERED: METOCLOPRAMIDE 10 MG INJ IV ONE (09:30)
[2018-11-05 11:49] VITALS: BP 128/74; PULSE 72; RESP 16
== END 2018-11-05 11:49 | disposition home or self-care (01) ==
LOC: E/R 03:02
DX: E86.0 Dehydration (principal); R11.2 Nausea with vomiting, unspecified; R10.9 Unspecified abdominal pain; I25.2 Old myocardial infarction; Z79.82 Long term (current) use of aspirin; Z95.1 Presence of aortocoronary bypass graft
CPT/HCPCS: 74018; 80053; 82150; 83690; 84484; 85025; 85610; 85730; 93005; 96374; 96375; 96376; J2405; J2765; J7030; Z7502; Z7610

== ENCOUNTER 2018-11-25 12:28 | Emergency (ER) | payer OTHER ==
[~2018-11-25] VITALS: Ht 188 cm; Wt 113.6 kg
[~2018-11-25 12:28] MED LIST changes: -DIPHENHYDRAMINE 50 MG INJ IM ONE; -FAMOTIDINE 20 MG TAB PO ONE
[2018-11-25 12:40] VITALS: Ht 188 cm; Wt 113.6 kg
--- NOTE | 2018-11-25 15:13 | ERD ---
ER Documentation Chief Complaint Chief Complaint RASH X1 DAY, NO SOB HPI Patient is a 63 years old male presents to the ED without any complaints. Patient reports that he is unsure why he came to the ED today and denies any pain. She admits that he was seen yesterday for rash and was given Benadryl with resolution of symptoms. Patient reports that he no longer has the rash and pruritus went away. Patient reports that he was brought into the ED by someone cannot recall who that person is. Patient reports that he feels fine and would like to go home. ROS All systems reviewed and are negative except as per history of present illness. Medications Home Meds Active Scripts Famotidine* (Pepcid*) 20 Mg Tablet, 20 MG PO DAILY for allergic reaction for 10 Days, #30 TAB Prov:GOLDIE PATEL DO 11/25/18 Diphenhydramine Hcl* (Diphenhydramine Hcl*) 25 Mg Capsule, 25 MG PO Q6 PRN for ITCHING, #30 CAP Prov:GOLDIE PATEL DO 11/25/18 Ondansetron (Ondansetron Odt) 4 Mg Tab.rapdis, 4 MG PO Q6H PRN for NAUSEA AND/OR VOMITING, #20 TAB Prov:SHANNON WOODS MD 11/05/18 Diphenoxylate Hcl-Atropine* (Lomotil*) 5 Ml Soln, 5 ML GTB Q6H PRN for DIARRHEA for 5 Days, ML Prov:SHANNON WOODS MD 11/05/18 Reported Medications Atorvastatin* (Atorvastatin*) 80 Mg Tablet, 80 MG PO QHS, #30 TAB 05/19/18 Clopidogrel Bisulfate* (Clopidogrel Bisulfate*) 75 Mg Tablet, 75 MG PO DAILY, #30 TAB 05/19/18 Aspirin* (Aspirin* EC) 81 Mg Tablet.dr, 81 MG PO DAILY, TAB 05/19/18 Allergies Allergies: Coded Allergies: acetaminophen (Verified Allergy, Intermediate, RASH, 05/19/18) PMhx/Soc History of Surgery: Yes (CABG,2016; HERNIA REPAIR,2009;) Anesthesia Reaction: No Hx Neurological Disorder: No Hx Respiratory Disorders: No Hx Cardiac Disorders: Yes ([place],2016) Hx Psychiatric Problems: No Hx Miscellaneous Medical Probl: Yes (NASAL DISCHARGE) Hx Alcohol Use: No Hx Substance Use: No Hx Tobacco Use: No Smoking Status: Never smoker FmHx Family History: No diabetes, No coronary disease, No other Physical Exam Vitals Vital Signs Date Temp Pulse Resp B/P (MAP) Pulse Ox O2 O2 Flow FiO2 Time Delivery Rate 11/25/18 99.6 63 18 107/52 98 12:40 (70) Physical Exam Const: No acute distress Head: Atraumatic Resp: Clear to auscultation bilaterally Cardio: Regular rate and rhythm, no murmurs Psych: Normal Mood and Affect Procedures/MDM Patient was seen and evaluated for an unknown visit without any complaints. Patient is stable and will be discharged. Follow-up with PCP. No work-up required due to no chief complaint. Departure Diagnosis: Primary Impression: Encounter for general adult medical examination without abnormal findings Condition: Stable Referrals: [facility] Additional Instructions: Patient advised to return to the ED immediately for new or worsening symptoms. Patient advised to follow up with primary care provider in the next 24-48 hours. Patient verbalized understanding and agrees with treatment plan and course of action. If patient has no primary care they may follow up with [facility] [address] [place] [id number] or [facility] [address] [place] [address] or [facility] [address] [place] [address] ANN-MARIE CARRASCO PA-C Nov 25, 2018 15:13
[2018-11-25 15:24] VITALS: BP 111/52; PULSE 67; RESP 18
== END 2018-11-25 15:26 | disposition home or self-care (01) ==
LOC: FTE 12:28
DX: Z00.00 Encounter for general adult medical examination without abnormal findings (principal); I25.2 Old myocardial infarction; Z79.01 Long term (current) use of anticoagulants; Z79.82 Long term (current) use of aspirin; Z95.1 Presence of aortocoronary bypass graft
CPT/HCPCS: 99282

== ENCOUNTER → 2018-11-25 | Emergency (ER) | payer OTHER ==
[~2018-11-25] VITALS: Ht 188 cm; Wt 119.2 kg
[~2018-11-25] MED LIST changes: +DIPH25CA6 PO; +DIPHENHYDRAMINE 50 MG INJ IM ONE; +FAMO-96 PO; +FAMOTIDINE 20 MG TAB PO ONE; +ONDA4TAB14 PO; +UDLOM GTB
[2018-11-25 03:25] VITALS: BP 120/69; PULSE 91; RESP 21; Ht 188 cm; Wt 119.2 kg
--- NOTE | 2018-11-25 05:36 | ERD ---
ER Documentation Chief Complaint Chief Complaint STATES POSSIBLE ALLERGIC REACTION, C/O JOE HAND ITCHINESS AND EYE REDNESS HPI 63-year-old white male with history of IA, CABG 2 years ago presents for bilateral hand itchiness and eye redness x1 days. States he may have an allergic reaction to something that he talks but he is unsure what. He has had prior similar symptoms. He states that he had some red eye earlier but that has since resolved. Denies any fevers or chills. Denies chest pain or shortness of breath. Denies abdominal pain, nausea, vomiting. No other modifying factors noted, no treatment at home. ROS All systems reviewed and are negative except as per history of present illness. Medications Home Meds Active Scripts Famotidine* (Pepcid*) 20 Mg Tablet, 20 MG PO DAILY for allergic reaction for 10 Days, #30 TAB Prov:GOLDIE PATEL DO 11/25/18 Diphenhydramine Hcl* (Diphenhydramine Hcl*) 25 Mg Capsule, 25 MG PO Q6 PRN for ITCHING, #30 CAP Prov:GOLDIE PATEL DO 11/25/18 Ondansetron (Ondansetron Odt) 4 Mg Tab.rapdis, 4 MG PO Q6H PRN for NAUSEA AND/OR VOMITING, #20 TAB Prov:SHANNON WOODS MD 11/05/18 Diphenoxylate Hcl-Atropine* (Lomotil*) 5 Ml Soln, 5 ML GTB Q6H PRN for DIARRHEA for 5 Days, ML Prov:SHANNON WOODS MD 11/05/18 Reported Medications Atorvastatin* (Atorvastatin*) 80 Mg Tablet, 80 MG PO QHS, #30 TAB 05/19/18 Clopidogrel Bisulfate* (Clopidogrel Bisulfate*) 75 Mg Tablet, 75 MG PO DAILY, #30 TAB 05/19/18 Aspirin* (Aspirin* EC) 81 Mg Tablet.dr, 81 MG PO DAILY, TAB 05/19/18 Allergies Allergies: Coded Allergies: acetaminophen (Verified Allergy, Intermediate, RASH, 05/19/18) PMhx/Soc History of Surgery: Yes (CABG,2016; HERNIA REPAIR,2009;) Anesthesia Reaction: No Hx Neurological Disorder: No Hx Respiratory Disorders: No Hx Cardiac Disorders: Yes ([place],2016) Hx Psychiatric Problems: No Hx Miscellaneous Medical Probl: Yes (NASAL DISCHARGE) Hx Alcohol Use: No Hx Substance Use: No Hx Tobacco Use: No Smoking Status: Never smoker FmHx Family History: No coronary disease Physical Exam Vitals Vital Signs Date Temp Pulse Resp B/P (MAP) Pulse Ox O2 O2 Flow FiO2 Time Delivery Rate 11/25/18 98.7 91 21 120/69 94 03:25 (86) Physical Exam Const: No acute distress Head: Atraumatic Eyes: Normal Conjunctiva, no injection is noted. ENT: Normal External Ears, Nose and Mouth. Neck: Full range of motion. No meningismus. Resp: Clear to auscultation bilaterally Cardio: Regular rate and rhythm, no murmurs Abd: Soft, non tender, non distended. Normal bowel sounds Skin: No petechiae or rashes, there is mild erythema of the bilateral hands however there is no obvious lesions or rash over the hands Back: No midline or flank tenderness Ext: No cyanosis, or edema Neur: Awake and alert Psych: Normal Mood and Affect Results 24 hrs Current Medications Medications Dose Sig/Ramesh Start Time Status Last (Trade) Ordered Route PRN Stop Time Admin Dose Reason Admin 50 mg ONCE ONCE 11/25/18 DC 11/25/18 Diphenhydrami IM 05:00 11/25/18 05:09 ne HCl 05:02 (Benadryl) Famotidine 20 mg ONCE ONCE 11/25/18 DC 11/25/18 (Pepcid) PO 05:00 11/25/18 05:09 05:02 Procedures/MDM Medical Decision Making: Differential diagnosis includes but not limited to allergic reaction, dermatitis, cellulitis, viral syndrome, fungal infection, erythrasma Patient appeared well on physical exam. No acute distress, speaking in full sentences, there is no tongue swelling Physical examination consistent with contact dermatitis Low suspicion for deep space infection, Kwaku Jhony syndrome, toxic epidermal necrolysis Prescription(s): Patient given prescription for supportive medication(s). Patient advised to follow up with PCP in 1-2 days. Patient advised to return to ED for new or worsening symptoms. Patient stable on discharge from the ED. Disclaimer: Inadvertent spelling and grammatical errors are likely due to EHR/dictation software use and do not reflect on the overall quality of patient care. Also, please note that the electronic time recorded on this note does not necessarily reflect the actual time of the patient encounter. Departure Diagnosis: Primary Impression: Allergic reaction Encounter type: initial encounter Qualified Codes: T78.40XA - Allergy, unspecified, initial encounter Condition: Fair Patient Instructions: First Aid: Allergic Reactions Referrals: [facility] (PCP) Additional Instructions: Call your primary care doctor TOMORROW for an appointment during the next 1-2 days.See the doctor sooner or return here if your condition worsens before your appointment time. GOLDIE PATEL DO Nov 25, 2018 05:36
== END | disposition home or self-care (01) ==
LOC: FTE 03:13
DX: L29.9 Pruritus, unspecified (principal); H57.89 Other specified disorders of eye and adnexa; I25.2 Old myocardial infarction; Z95.1 Presence of aortocoronary bypass graft
CPT/HCPCS: J1200; Z7610; 96372